=== PATIENT | male | born 1985 | race American Indian/Alaskan Native ===

== ENCOUNTER 2018-03-09 06:29 | Inpatient (IN) | payer BC ==
[2018-03-09] MEDS ORDERED: NACL 0.9% 500 ML 500 ML IV ONE (06:55)
[2018-03-09] MEDS ORDERED: ZOFRAN IV ONE (07:02)
[2018-03-09] MEDS ORDERED: ZOFRAN ONE (07:02)
[2018-03-09] MEDS ORDERED: NACL 0.9% 1000 ML 1,000 ML ONE ×2 (07:02→07:17)
--- NOTE | 2018-03-09 07:15 | XRay Report ---
FINAL REPORT EXAM: XR CHEST 1V AP HISTORY: possible Sepsis TECHNIQUE: A portable upright view the chest was obtained. FINDINGS: The heart size and vascularity appear normal. The lungs are clear. Pleural fluid is not seen. The bon es and soft tissues do not show any acute changes. IMPRESSION: No acute cardiopulmonary process.
[2018-03-09] MEDS ORDERED: NACL 0.9% 1000 ML IV ONE (07:16)
[2018-03-09] MEDS ORDERED: TORADOL IV ONE (07:28)
--- NOTE | 2018-03-09 07:30 | Emergency Department Report ---
HPI - General Chief Complaint: Nausea/Vomiting/Diarrhea Time Seen by Provider: 03/09/18 07:16 - HPI HPI: Room 22 The patient is a 33-year-old male presenting with a chief complaint of body aches and vomiting. The patient states his symptoms began 2 days ago when he developed chills nausea vomiting. Patient states she took TheraFlu and Raeann- [place] plus but it has not helped. The patient states the following day developed body aches and weakness. Patient denies diarrhea cough or rhinorrhea. Patient states he measured a temperature 99.7F at home. Patient is uncertain if he's had sick contacts Location: [See above] Duration: [See above] Quality: Aches Severity: Moderate Modifying factors: [see above] Context: [see above] Mode of transportation: [not driving] ED Past Medical Hx - Past Medical History Previous Medical History?: No - Surgical History Past Surgical History?: No - Family History Family history: no significant - Social History Smoking Status: Never Smoker Substance Use Type: Alcohol (occasional), Marijuana ED Review of Systems ROS: Stated complaint: FLU SXS Other details as noted in HPI Constitutional: chills, fever Eyes: denies: eye pain ENT: denies: throat pain Respiratory: denies: cough Cardiovascular: denies: chest pain Endocrine: no symptoms reported Gastrointestinal: nausea, vomiting. denies: diarrhea Genitourinary: denies: dysuria Musculoskeletal: myalgia Neurological: denies: headache Physical Exam - Physical Exam Vital Signs: Vital Signs 03/09/18 06:38 Temperature 97.7 F Pulse Rate 126 H Respiratory 18 Rate Blood Pressure 80/51 O2 Sat by Pulse 98 Oximetry Physical Exam: GENERAL: The patient is well-developed well-nourished male lying on stretcher appearing to be in moderate discomfort. [] HEENT: Normocephalic. Atraumatic. Extraocular motions are intact. Patient has moist mucous membranes. NECK: Supple. No meningitic signs are noted. No nuchal rigidity. Trachea midline CHEST/LUNGS: Clear to auscultation. There is no respiratory distress noted. HEART/CARDIOVASCULAR: Regular. There is tachycardia. There is no gallop rub or murmur. ABDOMEN: Abdomen is soft, nontender. Patient has normal bowel sounds. There is no abdominal distention. SKIN: There is no rash. There is no edema. There is no diaphoresis. NEURO: The patient is awake, alert, and oriented. The patient is cooperative. The patient has normal speech MUSCULOSKELETAL: There is no evidence of acute injury. ED Course Vital Signs 03/09/18 06:38 Temperature 97.7 F Pulse Rate 126 H Respiratory 18 Rate Blood Pressure 80/51 O2 Sat by Pulse 98 Oximetry - Central Line Placement Right Femoral Consent Obtained: verbal consent Time Out Performed: No Patient Placed on Monitor/Pulse Ox: Yes Prep: mask, gown, gloves Central Line Prep: Chlorhexidine scrub Local Anesthesia Used: Lidocaine 1% Amount of Anesthesia Used (mls): 3 Ultrasound Used for Placement: No Central Line Lumen Inserted: triple Bloods Obtained for Lab: No Central Line Position: good blood return Dressing Applied: Tegaderm Patient Tolerated Procedure: no complications Complications: none ED Medical Decision Making - Lab Data Result diagrams: 03/09/18 07:00 03/09/18 07:00 Laboratory Tests 03/09/18 03/09/18 03/09/18 07:00 07:00 07:00 WBC 8.5 RBC 4.68 Hgb 13.5 Hct 40.6 MCV 87 MCH 29 MCHC 33 RDW 15.5 H Plt Count 25 L Eos % (Auto) Cleater Add Manual Diff Complete Total Counted 100 Seg Neuts % (Manual) 90.0 H Band Neutrophils % 1.0 Lymphocytes % (Manual) 5.0 L Reactive Lymphs % (Man) 0 Monocytes % (Manual) 3.0 Eosinophils % (Manual) 1.0 Basophils % (Manual) 0 Metamyelocytes % 0 Myelocytes % 0 Promyelocytes % 0 Blast Cells % 0 Nucleated RBC % Not Reportable Seg Neutrophils # Man 7.7 Band Neutrophils # 0.1 Lymphocytes # (Manual) 0.4 L Abs React Lymphs (Man) 0.0 Monocytes # (Manual) 0.3 Eosinophils # (Manual) 0.1 Basophils # (Manual) 0.0 Metamyelocytes # 0.0 Myelocytes # 0.0 Promyelocytes # 0.0 Blast Cells # 0.0 WBC Morphology Not Reportable Hypersegmented Neuts Not Reportable Hyposegmented Neuts Not Reportable Hypogranular Neuts Not Reportable Smudge Cells Not Reportable Toxic Granulation Not Reportable Toxic Vacuolation 3+ Dohle Bodies Not Reportable Pelger-Huet Anomaly Not Reportable Kamar Rods Not Reportable Platelet Estimate Consistent w auto Clumped Platelets Not Reportable Plt Clumps, EDTA Not Reportable Large Platelets Not Reportable Giant Platelets Not Reportable Platelet Satelliting Not Reportable Plt Morphology Comment Not Reportable RBC Morphology Not Reportable Dimorphic RBCs Not Reportable Polychromasia Not Reportable Hypochromasia Not Reportable Poikilocytosis 2+ Anisocytosis 2+ Microcytosis Not Reportable Macrocytosis Not Reportable Spherocytes Not Reportable Pappenheimer Bodies Not Reportable Sickle Cells Not Reportable Target Cells Not Reportable Tear Drop Cells Not Reportable Ovalocytes Few Helmet Cells Not Reportable [place] Bodies Not Reportable [place] Rings Not Reportable [place] Cells Not Reportable Bite Cells Not Reportable Crenated Cell Not Reportable Elliptocytes Not Reportable Acanthocytes (Spur) 1+ Rouleaux Not Reportable Hemoglobin C Crystals Not Reportable Schistocytes Not Reportable Malaria parasites Not Reportable Jose Bodies Not Reportable Hem Pathologist Commnt No PT 22.9 H INR 1.98 H VBG pH Sodium 135 L Potassium 4.7 Chloride 90.8 L Carbon Dioxide 17 L Anion Gap 32 BUN 45 H Creatinine 5.8 H Estimated GFR 14 BUN/Creatinine Ratio 8 Glucose 72 L Lactic Acid Calcium 7.6 L Total Bilirubin 1.10 AST 32 ALT 28 Alkaline Phosphatase 154 H Total Protein 7.4 Albumin 3.6 L Albumin/Globulin Ratio 0.9 Influenza A (Rapid) Influenza B (Rapid) 03/09/18 03/09/18 03/09/18 07:00 07:00 Unknown WBC RBC Hgb Hct MCV MCH MCHC RDW Plt Count Eos % (Auto) Add Manual Diff Total Counted Seg Neuts % (Manual) Band Neutrophils % Lymphocytes % (Manual) Reactive Lymphs % (Man) Monocytes % (Manual) Eosinophils % (Manual) Basophils % (Manual) Metamyelocytes % Myelocytes % Promyelocytes % Blast Cells % Nucleated RBC % Seg Neutrophils # Man Band Neutrophils # Lymphocytes # (Manual) Abs React Lymphs (Man) Monocytes # (Manual) Eosinophils # (Manual) Basophils # (Manual) Metamyelocytes # Myelocytes # Promyelocytes # Blast Cells # WBC Morphology Hypersegmented Neuts Hyposegmented Neuts Hypogranular Neuts Smudge Cells Toxic Granulation Toxic Vacuolation Dohle Bodies Pelger-Huet Anomaly Kamar Rods Platelet Estimate Clumped Platelets Plt Clumps, EDTA Large Platelets Giant Platelets Platelet Satelliting Plt Morphology Comment RBC Morphology Dimorphic RBCs Polychromasia Hypochromasia Poikilocytosis Anisocytosis Microcytosis Macrocytosis Spherocytes Pappenheimer Bodies Sickle Cells Target Cells Tear Drop Cells Ovalocytes Helmet Cells Barnes-[place] Bodies Carnegie Rings [place] Cells Bite Cells Crenated Cell Elliptocytes Acanthocytes (Spur) Rouleaux Hemoglobin C Crystals Schistocytes Malaria parasites Joes Bodies Hem Pathologist Commnt PT INR VBG pH 7.297 L Sodium Potassium Chloride Carbon Dioxide Anion Gap BUN Creatinine Estimated GFR BUN/Creatinine Ratio Glucose Lactic Acid 6.80 H* Calcium Total Bilirubin AST ALT Alkaline Phosphatase Total Protein Albumin Albumin/Globulin Ratio Influenza A (Rapid) Negative Influenza B (Rapid) Negative - EKG Data -: EKG Interpreted by Me EKG shows normal: sinus rhythm Rate: tachycardia (124 bpm) - EKG Data Interpretation: other (early repolarization) - Radiology Data Radiology results: report reviewed (chest x-ray), image reviewed (chest x-ray) interpreted by me: Chest x-ray-no focal infiltrates, no pneumothorax Findings [facility] [address] [place] [address] XRay Report Signed Patient: TIMOTHY VILLALOBOS MR#: [id number] : 1985 Acct:[id number] Age/Sex: 33 / M ADM Date: 03/09/18 Loc: ED Attending Dr: Ordering Physician: AKASH GRAVES MD Date of Service: 03/09/18 Procedure(s): XR chest 1V ap Accession Number(s): [id number] cc: AKASH GRAVES MD Fluoro Time In Minutes: FINAL REPORT EXAM: XR CHEST 1V AP HISTORY: possible Sepsis TECHNIQUE: A portable upright view the chest was obtained. FINDINGS: The heart size and vascularity appear normal. The lungs are clear. Pleural fluid is not seen. The bones and soft tissues do not show any acute changes. IMPRESSION: No acute c ardiopulmonary process. Transcribed By: RB Dictated By: TANMAY CRENSHAW MD Electronically Authenticated By: TANMAY CRENSHAW MD Signed Date/Time: 03/09/18714 DD/ 7 TD/TT: 03/09/18717 - Differential Diagnosis sepsis, influenza, dehydration, gastritis, pneumonia, UTI Critical care attestation.: If time is entered above; I have spent that time in minutes in the direct care of this critically ill patient, excluding procedure time. ED Disposition Clinical Impression: Sepsis, Acute renal failure Disposition: OP ADMIT IP TO THIS HOSP Is pt being admited?: Yes Does the pt Need Aspirin: No Condition: Serious Referrals: PRIMARY CARE,MD [Primary Care Provider] - 3-5 Days Time of Disposition: 09:17 (Hospitalist notified (Dr Caldwell))
[2018-03-09 07:42] LABS: Hematocrit 40.6 % (35.5-45.6); Hemoglobin 13.5 gm/dl (11.8-15.2); Mean Corpuscular HGB Conc 33 % (32-34); Mean Corpuscular Volume 87 fl (84-94); Red Blood Count 4.68 M/mm3 (3.65-5.03); Red Cell Distribution Width 15.5 % (13.2-15.2)
[2018-03-09 07:54] LABS: INR 1.98 (0.87-1.13)
[2018-03-09 07:57] LABS: Albumin 3.6 g/dL (3.9-5); Calcium 7.6 mg/dL (8.4-10.2)
[2018-03-09] MEDS ORDERED: LEVOPHED DRIP 4 MG/NS 250 ML 4 MG/250 ML BAG IV ONE ×4 (08:23→19:11)
[2018-03-09] MEDS: LEVOPHED DRIP 4 MG/NS 250 ML 4 MG/250 ML BAG IV ONE ×3 (08:25→19:34)
[2018-03-09 08:51] LABS: Band Neutrophils # (Manual) 0.1 K/mm3; Basophils % (Manual) 0 % (0.0-1.8); Total Cells Counted 100
[2018-03-09 08:53] LABS: Anisocytosis 2+; Ovalocytes Few; Poikilocytosis 2+
[2018-03-09 08:56] LABS: Toxic Vacuolation 3+
[2018-03-09 08:57] LABS: Platelet Count 25 K/mm3 (140-440); Platelet Estimate Consistent w Auto
[2018-03-09] MEDS ORDERED: ZOSYN/NS 2.25 GM/50ML 2.25 GM/50 ML BAG IV ONE (09:00)
[2018-03-09] MEDS ORDERED: NACL 0.9% 1000 ML 1,000 ML IV SCH (10:00)
--- NOTE | 2018-03-09 10:13 | Consultation ---
History of Present Illness - Reason for Consult Consult date: 03/09/18 acute renal failure - History of Present Illness the patient is a 33 year old male with no PMH, for the last few days he started to feel weak with generlaized body aches and nausea with vomting which did not improve with Raeann-[place] and he came to the ED. in the ED he was found hypotensive and was given 2 L IVF bolus and started on levophed, his lab results were significant for renal failure, hypocalcemia, AG metabolic acidosis and renal consult was requested Past History Past Medical History: No medical history Medications and Allergies Allergies Allergy/AdvReac Type Severity Reaction Status Date / Time clindamycin Allergy Swelling Verified 03/09/18 06:43 Active Meds: Active Medications Norepinephrine (Levophed Drip 4 Mg/Ns 250 Ml) 4 mg in 250 mls @ 7.5 mls/hr IV TITR ONE; Protocol Stop: 03/10/18 17:39 Last Titration: 03/09/18 09:40 Dose: 10 mcg/min, 37.5 mls/hr Documented by: Sodium Chloride (Nacl 0.9% 1000 Ml) 1,000 mls @ 150 mls/hr IV DIRECT LIU Sodium Bicarbonate 75 meq/ (Sodium Chloride) 1,075 mls @ 125 mls/hr IV DIRECT LIU Calcium Gluconate 2,000 mg/ (Sodium Chloride) 120 mls @ 660 mls/hr IV ONCE ONE Stop: 03/09/18 10:14 Review of Systems All systems: negative (weakness, nausea and vomiting) Exam - Vital Signs Vital signs: Vital Signs Temp Pulse Resp BP Pulse Ox 97.7 F 126 H 18 80/51 98 03/09/18 06:38 03/09/18 06:38 03/09/18 06:38 03/09/18 06:38 03/09/18 06:38 - General Appearance General appearance: well-developed, well-nourished, appears stated age, moderate distress EENT: ATNC, PERRL, mucous membranes moist Neck: Present: neck supple Respiratory: Clear to Ascultation Heart: regular, S1S2 Gastrointestinal: Present: normoactive bowel sounds. Absent: tenderness, distended Integumentary: no rash, warm and dry Neurologic: no focal deficit, no asterixis, alert and oriented x3 Musculoskeletal: Present: other (no edema in BLE) Psychiatric: mood/affect appropriate, cooperative Results - Lab Results 03/09/18 07:00 03/09/18 07:00 Most recent lab results Calcium 7.6 mg/dL (8.4-10.2) L 03/09/18 07:00 Assessment and Plan acute renal failure, prerenal azotemia vs. ischemic ATN from hypotension lactic acidosis nausea and vomiting, likely gastroenteritis hypocalcemia - currently on levo and was given 2 L bolus in the ED, will start 1/2 NS with sodium bicarb 75 meq @ 125 cc/h - urine lytes, protein and UA ordered, if active sediment will check secondary GN and vasculitis work up - CK ordered for generalized body aches to r/o rhabdo - calcium gluconate 2 gram IV ordered - renal US ordered - no indication for CORN SHELLER, will monitor closely - renally odse meds - strict I&O - daily weight thank you for allowing to participate in Mr Liu's care. Joseph Stratton MD cell [phone]
--- NOTE | 2018-03-09 10:35 | History and Physical Report ---
History of Present Illness Date of examination: 03/09/18 Date of admission: 03/09/18 09:19 Chief complaint: nausea, vomiting,gen body pains,chills History of present illness: Patient is 33 yo with HIV infection. He presented with nausea, vomiting, general weakness and chills for 2 days. he states illness started 2 days with him feeling chilly but denies fever. Later had nausea vomited almost 10 times daily for past few days.He took Thera flu and multiple doses of Raeann-seltzer. He was getting weaker, no Urine output therefore came to ED for evaluation. In ED, labs show acute kidney injury with metabolic acidosis. He was hypotensive. He was given 2000ml bolus, was still hypotensive therefore started on Levophed infusion. Will admit to ICU. Past History Past Medical History: HIV/AIDS Past Surgical History: Other (hemorrhoidectomy) Social history: single, full code, other (Marijuana, alcohol occasionally) Family history: other (father has CKD) Medications and Allergies Allergies Allergy/AdvReac Type Severity Reaction Status Date / Time clindamycin Allergy Swelling Verified 03/09/18 06:43 Home Medications Medication Instructions Recorded Confirmed Last Taken Type No Known Home Medications [No 03/09/18 03/09/18 Unknown History Reported Home Medications] Active Meds: Active Medications Norepinephrine (Levophed Drip 4 Mg/Ns 250 Ml) 4 mg in 250 mls @ 7.5 mls/hr IV TITR ONE; Protocol Stop: 03/10/18 17:39 Last Titration: 03/09/18 09:40 Dose: 10 mcg/min, 37.5 mls/hr Documented by: Sodium Chloride (Nacl 0.9% 1000 Ml) 1,000 mls @ 150 mls/hr IV DIRECT LIU Sodium Bicarbonate 75 meq/ (Sodium Chloride) 1,075 mls @ 125 mls/hr IV DIRECT LIU Calcium Gluconate 2,000 mg/ (Sodium Chloride) 120 mls @ 240 mls/hr IV ONCE ONE Stop: 03/09/18 11:29 Review of Systems All systems: negative (No fever, No haeadache, no cough, no headache. All other system reviewed and are negative) Exam - Physical Exam Narrative exam: GEN: Not in acute distress, lying in bed HEENT: Normocephalic, atraumatic, Neck: supple, No JVD Lungs: Clear to auscultation, no rhonchi,no wheeze Heart:S1 and S2 regular, no murmurs, rubs or gallop, Abd:soft, non tender, non distended, normal bowel sounds Ext: No edema, no clubbing or cyanosis Neuro: AAO x 3, No focal signs - Constitutional Vitals: Temp Pulse Resp BP Pulse Ox 97.7 F 114 H 41 H 84/57 95 03/09/18 07:39 03/09/18 09:45 03/09/18 09:45 03/09/18 09:45 03/09/18 09:45 Results - Labs CBC & Chem 7: 03/09/18 07:00 03/09/18 07:00 Labs: Abnormal lab results 03/09/18 03/09/18 03/09/18 Range/Units 07:00 07:00 07:00 RDW 15.5 H (13.2-15.2) % Plt Count 25 L (140-440) K/mm3 Seg Neuts % (Manual) 90.0 H (40.0-70.0) % Lymphocytes % (Manual) 5.0 L (13.4-35.0) % Lymphocytes # (Manual) 0.4 L (1.2-5.4) K/mm3 PT 22.9 H (12.2-14.9) Sec. INR 1.98 H (0.87-1.13) VBG pH (7.320-7.420) Sodium 135 L (137-145) mmol/L Chloride 90.8 L (98-107) mmol/L Carbon Dioxide 17 L (22-30) mmol/L BUN 45 H (9-20) mg/dL Creatinine 5.8 H (0.8-1.5) mg/dL Glucose 72 L (75-100) mg/dL Lactic Acid (0.7-2.0) mmol/L Calcium 7.6 L (8.4-10.2) mg/dL Alkaline Phosphatase 154 H (35-129) units/L Albumin 3.6 L (3.9-5) g/dL 03/09/18 03/09/18 03/09/18 Range/Units 07:00 07:00 09:22 RDW (13.2-15.2) % Plt Count (140-440) K/mm3 Seg Neuts % (Manual) (40.0-70.0) % Lymphocytes % (Manual) (13.4-35.0) % Lymphocytes # (Manual) (1.2-5.4) K/mm3 PT (12.2-14.9) Sec. INR (0.87-1.13) VBG pH 7.297 L (7.320-7.420) Sodium (137-145) mmol/L Chloride (98-107) mmol/L Carbon Dioxide (22-30) mmol/L BUN (9-20) mg/dL Creatinine (0.8-1.5) mg/dL Glucose (75-100) mg/dL Lactic Acid 6.80 H* 5.90 H* (0.7-2.0) mmol/L Calcium (8.4-10.2) mg/dL Alkaline Phosphatase (35-129) units/L Albumin (3.9-5) g/dL Assessment and Plan Hypotension Admit to ICU Started on Levophed after bolus iv fluid iv fluids SCOTT Nephrology consulted and has evaluated Discusssed with nephrology Possible sepsis vs SIRS Blood cultures drawn Started iv Abx consult ID HIV infection. Diagnosed 6 yrs ago was on HAART but been off meds for 2 mths Hyponatremia Coagulopathy INR 1.98 Repeat May Lactic acidosis Metabolic acidosis Full code status
[2018-03-09] MEDS: SODIUM BICARBONATE 75 MEQ in NACL 0.45% 1000 ML 1,000 ML IV SCH ×2 (10:40→19:21)
[2018-03-09] MEDS ORDERED: SODIUM CHLORIDE FLUSH SYRINGE 10 ML IV PRN (10:41)
[2018-03-09] MEDS ORDERED: CALCIUM GLUCONATE 2,000 MG in NACL 0.9% 100 ML IV ONE (11:00)
[2018-03-09] MEDS ORDERED: VANCOMYCIN PHARMACY TO DOSE IV SCH (11:00)
[2018-03-09] MEDS ORDERED: VANCOMYCIN 1,750 MG in NACL 0.9% 500 ML 500 ML IV STA (11:02)
[2018-03-09] MEDS: PROTONIX IV SCH (12:39)
[2018-03-09] MEDS ORDERED: MAGNESIUM SULFATE 3 GM in NACL 0.9% 100 ML IV ONE (14:30)
--- NOTE | 2018-03-09 14:53 | Consultation ---
History of Present Illness - Reason for Consult Consult date: 03/09/18 Hypotension, unknown etiology Requesting physician: ELIOT SINGH - History of Present Illness 33 y/o male with no past medical history found to be hypotensive, thrombocytopenic, acute renal failure of unknown etiology. Patient current on Levophed drip but off floor for US of kidneys. Past History Past Medical History: HIV/AIDS Past Surgical History: Other (hemorrhoidectomy) Social history: single, other (Marijuana, alcohol occasionally) Family history: other (father has CKD) Medications and Allergies Allergies Allergy/AdvReac Type Severity Reaction Status Date / Time clindamycin Allergy Swelling Verified 03/09/18 06:43 Home Medications Medication Instructions Recorded Confirmed Last Taken Type No Known Home Medications [No 03/09/18 03/09/18 Unknown History Reported Home Medications] Active Meds: Active Medications Norepinephrine (Levophed Drip 4 Mg/Ns 250 Ml) 4 mg in 250 mls @ 7.5 mls/hr IV TITR ONE; Protocol Stop: 03/10/18 17:39 Last Titration: 03/09/18 14:34 Dose: Infused Documented by: Sodium Chloride (Nacl 0.9% 1000 Ml) 1,000 mls @ 150 mls/hr IV DIRECT LIU Sodium Bicarbonate 75 meq/ (Sodium Chloride) 1,075 mls @ 125 mls/hr IV DIRECT LIU Last Admin: 03/09/18 10:40 Dose: 125 mls/hr Documented by: Piperacillin Sod/Tazobactam Sod (Zosyn/Ns 2.25 Gm/50ml) 2.25 gm in 50 mls @ 100 mls/hr IV Q8H LIU; Protocol Vancomycin HCl 1,750 mg/ (Sodium Chloride) 535 mls @ 267.5 mls/hr IV Q48H LIU Magnesium Sulfate 3 gm/ Sodium (Chloride) 106 mls @ 35.333 mls/hr IV ONCE ONE Stop: 03/09/18 17:29 Morphine Sulfate (Morphine) 2 mg IV Q4H PRN PRN Reason: Pain, Moderate (4-6) Pantoprazole Sodium (Protonix) 40 mg IV QDAY LIU Last Admin: 03/09/18 12:39 Dose: 40 mg Documented by: Sodium Chloride (Sodium Chloride Flush Syringe 10 Ml) 10 ml IV BID LIU Sodium Chloride (Sodium Chloride Flush Syringe 10 Ml) 10 ml IV PRN PRN PRN Reason: LINE FLUSH Exam - Constitutional Vitals: Temp Pulse Resp BP Pulse Ox 97.7 F 112 H 24 78/45 93 03/09/18 07:39 03/09/18 13:50 03/09/18 13:50 03/09/18 13:50 03/09/18 13:50 Results - Labs CBC & Chem 7: 03/09/18 07:00 03/09/18 07:00 Labs: Abnormal lab results 03/09/18 03/09/18 03/09/18 Range/Units 07:00 07:00 07:00 RDW 15.5 H (13.2-15.2) % Plt Count 25 L (140-440) K/mm3 Seg Neuts % (Manual) 90.0 H (40.0-70.0) % Lymphocytes % (Manual) 5.0 L (13.4-35.0) % Lymphocytes # (Manual) 0.4 L (1.2-5.4) K/mm3 PT 22.9 H (12.2-14.9) Sec. INR 1.98 H (0.87-1.13) VBG pH (7.320-7.420) Sodium 135 L (137-145) mmol/L Chloride 90.8 L (98-107) mmol/L Carbon Dioxide 17 L (22-30) mmol/L BUN 45 H (9-20) mg/dL Creatinine 5.8 H (0.8-1.5) mg/dL Glucose 72 L (75-100) mg/dL Lactic Acid (0.7-2.0) mmol/L Calcium 7.6 L (8.4-10.2) mg/dL Phosphorus (2.5-4.5) mg/dL Magnesium (1.7-2.3) mg/dL Alkaline Phosphatase 154 H (35-129) units/L Total Creatine Kinase (55-170) units/L Albumin 3.6 L (3.9-5) g/dL 03/09/18 03/09/18 03/09/18 Range/Units 07:00 07:00 07:00 RDW (13.2-15.2) % Plt Count (140-440) K/mm3 Seg Neuts % (Manual) (40.0-70.0) % Lymphocytes % (Manual) (13.4-35.0) % Lymphocytes # (Manual) (1.2-5.4) K/mm3 PT (12.2-14.9) Sec. INR (0.87-1.13) VBG pH 7.297 L (7.320-7.420) Sodium (137-145) mmol/L Chloride (98-107) mmol/L Carbon Dioxide (22-30) mmol/L BUN (9-20) mg/dL Creatinine (0.8-1.5) mg/dL Glucose (75-100) mg/dL Lactic Acid 6.80 H* (0.7-2.0) mmol/L Calcium (8.4-10.2) mg/dL Phosphorus 5.40 H (2.5-4.5) mg/dL Magnesium 1.20 L (1.7-2.3) mg/dL Alkaline Phosphatase (35-129) units/L Total Creatine Kinase 228 H (55-170) units/L Albumin (3.9-5) g/dL 03/09/18 03/09/18 Range/Units 09:22 12:36 RDW (13.2-15.2) % Plt Count (140-440) K/mm3 Seg Neuts % (Manual) (40.0-70.0) % Lymphocytes % (Manual) (13.4-35.0) % Lymphocytes # (Manual) (1.2-5.4) K/mm3 PT (12.2-14.9) Sec. INR (0.87-1.13) VBG pH (7.320-7.420) Sodium (137-145) mmol/L Chloride (98-107) mmol/L Carbon Dioxide (22-30) mmol/L BUN (9-20) mg/dL Creatinine (0.8-1.5) mg/dL Glucose (75-100) mg/dL Lactic Acid 5.90 H* 8.30 H* (0.7-2.0) mmol/L Calcium (8.4-10.2) mg/dL Phosphorus (2.5-4.5) mg/dL Magnesium (1.7-2.3) mg/dL Alkaline Phosphatase (35-129) units/L Total Creatine Kinase (55-170) units/L Albumin (3.9-5) g/dL Assessment and Plan 33 y/o male with thrombocytopenia, renal failure, and hypotension. Will assess once back from ultrasound, but in the mean time suggest the following 1. Peripheral smear given thrombocytopenia 2. Consider repeat CBC and if still low, suggest heme consult 3. Check HIV 4. Would suggest more IVF boluses 5. Send Cortisol level CCT 31 minutes
--- NOTE | 2018-03-09 15:04 | Ultrasound Report ---
ULTRASOUND RENAL BILATERAL HISTORY: Renal failure. TECHNIQUE: transabdominal ultrasound with color Doppler interrogation. COMPARISON: none. FINDINGS: The right kidney measures 13.5cm. Right renal cortex: 2.1cm. The left kidney measures 12.2cm. Left renal cortex: 2.2cm. The kidneys are normal size, contour and position. There is increased renal cortical echotexture bilaterally consistent with nonspecific renal parenchymal disease. Corticomedullary differentiation is preserved. No evidence for cystic disease, mass, nephrolithiasis, hydronephrosis or perinephric fluid. The views of the bladder and the region of the ureters appear normal. IMPRESSION: Renal parenchymal disease.
[2018-03-09] MEDS ORDERED: PROTONIX IV ONE (15:18)
[2018-03-09 15:50] LABS: Creatinine,Urine 217.1 mg/dL (0.1-20.0)
[2018-03-09 15:55] LABS: Creatinine,Urine 210.7 mg/dL (0.1-20.0)
[2018-03-09] MEDS ORDERED: D50W (25GM) Syringe IV ONE ×2 (16:02→16:05)
[2018-03-09] MEDS ORDERED: D50W (25GM) Vial IV PRN (16:05)
[2018-03-09] MEDS ORDERED: D50W (25GM) Syringe IV PRN (16:15)
[2018-03-09 16:16] LABS: Protein/Creatinine Ratio,Urine 3.89
[2018-03-09 16:26] LABS: Bilirubin,Urine NEG (Negative); Blood,Urine LG (Negative); Color,Urine Amber (Yellow); Urobilinogen,Urine < 2.0 mg/dL (<2.0)
[2018-03-09 16:27] LABS: RBC,Urine > 182.0 /HPF (0.0-6.0)
[2018-03-09] MEDS ORDERED: ZOSYN/NS 3.375GM/50ML 3.375 GM/50 ML BAG IV SCH (17:00)
[2018-03-09] MEDS ORDERED: ZOSYN/NS 2.25 GM/50ML 2.25 GM/50 ML BAG IV SCH (18:00)
--- NOTE | 2018-03-09 19:21 | Consultation ---
History of Present Illness - Reason for Consult Consult date: 03/09/18 ?sepsis, shock, on pressors Requesting physician: ELIOT SINGH - History of Present Illness The patient is a 33-year-old male with no significant past medical history presented to the emergency room today with complaints of body aches and vomiting. The patient states he was at his baseline state of health and started feeling poorly on Wednesday when at work. He checked his temperature and was 99.7F. He also had some chills and nausea, vomiting. He took TheraFlu as well as Raeann- [place] without much improvement. Today, he continued to feel worse and hence came to the emergency room. Here, he was noted to be hypotensive and in acute renal failure with significant elevation of creatinine. He was also noted to be acidotic. He was given 2 L of IV fluids and started on levo fed due to hypotens ion. Nephrology was consulted. Infectious diseases was consulted due to concern for possible sepsis causing hypotension. The patient reports just having pain all over. Denies any significant cough. He is feeling short of breath. Denies any rash. Denies burning urination. Has been afebrile here. No significant diarrhea. Patient reports a strong family history of ESRD and CKD in several family mem bers. 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 He drinks alcohol socially, occasionally smokes marijuana. Denies any IV drug use. Review of Systems: General: no fevers or rigors HEENT: no new visual disturbance Respiratory: No cough, sputum, hemoptysis. SOB + Cardiovascular: No chest pain, syncope Gastrointestinal: vomiting+, no significant diarrhea Genitourinary: No dysuria or hematuria Musculoskeletal: Diffuse bodyaches. Neurologic: No headaches, seizures Hematologic: No easy bruising or bleeding Endocrine: No night sweats or acute weight loss Skin: negative for rash, jaundice Psychiatric: No suicidal or homicidal ideation Past History Past Medical History: HIV/AIDS Past Surgical History: Other (hemorrhoidectomy) Social history: single, other (Marijuana, alcohol occasionally) Family history: other (father has CKD) Medications and Allergies Allergies Allergy/AdvReac Type Severity Reaction Status Date / Time clindamycin Allergy Swelling Verified 03/09/18 06:43 Home Medications Medication Instructions Recorded Confirmed Last Taken Type No Known Home Medications [No 03/09/18 03/09/18 Unknown History Reported Home Medications] Active Meds: Active Medications Dextrose (D50w (25gm) Syringe) 50 ml IV PRN PRN PRN Reason: HYPOGLYCEMIA Norepinephrine (Levophed Drip 4 Mg/Ns 250 Ml) 4 mg in 250 mls @ 7.5 mls/hr IV TITR ONE; Protocol Stop: 03/10/18 17:39 Last Admin: 03/09/18 17:20 Dose: 30 mcg/min, 112.5 mls/hr Documented by: Sodium Bicarbonate 75 meq/ (Sodium Chloride) 1,075 mls @ 125 mls/hr IV DIRECT [facility] Last Admin: 03/09/18 10:40 Dose: 125 mls/hr Documented by: Morphine Sulfate (Morphine) 2 mg IV Q4H PRN PRN Reason: Pain, Moderate (4-6) Pantoprazole Sodium (Protonix) 40 mg IV QDAY [facility] Last Admin: 03/09/18 12:39 Dose: 40 mg Documented by: Sodium Chloride (Sodium Chloride Flush Syringe 10 Ml) 10 ml IV BID [facility] Sodium Chloride (Sodium Chloride Flush Syringe 10 Ml) 10 ml IV PRN PRN PRN Reason: LINE FLUSH Physical Examination - Physical Exam Narrative exam: Physical Exam: Constitutional: Alert, cooperative. No acute distress Head, Ears, Nose: Normocephalic, atraumatic. External ears, nose normal Eyes: Conjunctivae/corneas clear. No icterus. No ptosis. Neck: Supple, no meningeal signs Oral: no thrush or ulcers Cardiovascular: S1, S2 normal. Respiratory: Good air entry, clear to auscultation bilaterally GI: Mild diffuse tenderness; bowel sounds normal. No peritoneal signs Musculoskeletal: No pedal edema, no cyanosis. Skin: No rash or abscess Hem/Lymphatic: No palpable cervical or supraclavicular nodes. No lymphangitis Psych: Mood ok. Affect normal Neurological: Awake, alert, oriented. No gross abnormality - Constitutional Vitals: Vital Signs Temp Pulse Resp BP Pulse Ox 97.7 F 121 H 27 H 104/74 95 03/09/18 07:39 03/09/18 18:22 03/09/18 18:22 03/09/18 18:00 03/09/18 18:22 Temperature -Last 24 Hours Temperature 97.7 F Temperature 97.7 F Results - Labs CBC & Chem 7: 03/09/18 07:00 03/09/18 07:00 Labs: Abnormal lab results 03/09/18 03/09/18 03/09/18 Range/Units 07:00 07:00 07:00 RDW 15.5 H (13.2-15.2) % Plt Count 25 L (140-440) K/mm3 Seg Neuts % (Manual) 90.0 H (40.0-70.0) % Lymphocytes % (Manual) 5.0 L (13.4-35.0) % Lymphocytes # (Manual) 0.4 L (1.2-5.4) K/mm3 PT 22.9 H (12.2-14.9) Sec. INR 1.98 H (0.87-1.13) VBG pH (7.320-7.420) Sodium 135 L (137-145) mmol/L Chloride 90.8 L (98-107) mmol/L Carbon Dioxide 17 L (22-30) mmol/L BUN 45 H (9-20) mg/dL Creatinine 5.8 H (0.8-1.5) mg/dL Glucose 72 L (75-100) mg/dL POC Glucose (70-105) Lactic Acid (0.7-2.0) mmol/L Calcium 7.6 L (8.4-10.2) mg/dL Phosphorus (2.5-4.5) mg/dL Magnesium (1.7-2.3) mg/dL Alkaline Phosphatase 154 H (35-129) units/L Total Creatine Kinase (55-170) units/L Albumin 3.6 L (3.9-5) g/dL Urine WBC (Auto) (0.0-6.0) /HPF Urine Creatinine (0.1-20.0) mg/dL Urine Total Protein (5-11.8) mg/dL 03/09/18 03/09/18 03/09/18 Range/Units 07:00 07:00 07:00 RDW (13.2-15.2) % Plt Count (140-440) K/mm3 Seg Neuts % (Manual) (40.0-70.0) % Lymphocytes % (Manual) (13.4-35.0) % Lymphocytes # (Manual) (1.2-5.4) K/mm3 PT (12.2-14.9) Sec. INR (0.87-1.13) VBG pH 7.297 L (7.320-7.420) Sodium (137-145) mmol/L Chloride (98-107) mmol/L Carbon Dioxide (22-30) mmol/L BUN (9-20) mg/dL Creatinine (0.8-1.5) mg/dL Glucose (75-100) mg/dL POC Glucose (70-105) Lactic Acid 6.80 H* (0.7-2.0) mmol/L Calcium (8.4-10.2) mg/dL Phosphorus 5.40 H (2.5-4.5) mg/dL Magnesium 1.20 L (1.7-2.3) mg/dL Alkaline Phosphatase (35-129) units/L Total Creatine Kinase 228 H (55-170) units/L Albumin (3.9-5) g/dL Urine WBC (Auto) (0.0-6.0) /HPF Urine Creatinine (0.1-20.0) mg/dL Urine Total Protein (5-11.8) mg/dL 03/09/18 03/09/18 03/09/18 Range/Units 09:22 12:36 14:39 RDW (13.2-15.2) % Plt Count (140-440) K/mm3 Seg Neuts % (Manual) (40.0-70.0) % Lymphocytes % (Manual) (13.4-35.0) % Lymphocytes # (Manual) (1.2-5.4) K/mm3 PT (12.2-14.9) Sec. INR (0.87-1.13) VBG pH (7.320-7.420) Sodium (137-145) mmol/L Chloride (98-107) mmol/L Carbon Dioxide (22-30) mmol/L BUN (9-20) mg/dL Creatinine (0.8-1.5) mg/dL Glucose (75-100) mg/dL POC Glucose (70-105) Lactic Acid 5.90 H* 8.30 H* (0.7-2.0) mmol/L Calcium (8.4-10.2) mg/dL Phosphorus (2.5-4.5) mg/dL Magnesium (1.7-2.3) mg/dL Alkaline Phosphatase (35-129) units/L Total Creatine Kinase (55-170) units/L Albumin (3.9-5) g/dL Urine WBC (Auto) 86.0 H (0.0-6.0) /HPF Urine Creatinine (0.1-20.0) mg/dL Urine Total Protein (5-11.8) mg/dL 03/09/18 03/09/18 03/09/18 Range/Units 14:39 14:39 15:12 RDW (13.2-15.2) % Plt Count (140-440) K/mm3 Seg Neuts % (Manual) (40.0-70.0) % Lymphocytes % (Manual) (13.4-35.0) % Lymphocytes # (Manual) (1.2-5.4) K/mm3 PT (12.2-14.9) Sec. INR (0.87-1.13) VBG pH (7.320-7.420) Sodium (137-145) mmol/L Chloride (98-107) mmol/L Carbon Dioxide (22-30) mmol/L BUN (9-20) mg/dL Creatinine (0.8-1.5) mg/dL Glucose (75-100) mg/dL POC Glucose (70-105) Lactic Acid 5.90 H* (0.7-2.0) mmol/L Calcium (8.4-10.2) mg/dL Phosphorus (2.5-4.5) mg/dL Magnesium (1.7-2.3) mg/dL Alkaline Phosphatase (35-129) units/L Total Creatine Kinase (55-170) units/L Albumin (3.9-5) g/dL Urine WBC (Auto) (0.0-6.0) /HPF Urine Creatinine 217.1 H 210.7 H (0.1-20.0) mg/dL Urine Total Protein 820 H (5-11.8) mg/dL 03/09/18 03/09/18 Range/Units 15:53 18:20 RDW (13.2-15.2) % Plt Count (140-440) K/mm3 Seg Neuts % (Manual) (40.0-70.0) % Lymphocytes % (Manual) (13.4-35.0) % Lymphocytes # (Manual) (1.2-5.4) K/mm3 PT (12.2-14.9) Sec. INR (0.87-1.13) VBG pH (7.320-7.420) Sodium (137-145) mmol/L Chloride (98-107) mmol/L Carbon Dioxide (22-30) mmol/L BUN (9-20) mg/dL Creatinine (0.8-1.5) mg/dL Glucose (75-100) mg/dL POC Glucose 56 L (70-105) Lactic Acid 5.10 H* (0.7-2.0) mmol/L Calcium (8.4-10.2) mg/dL Phosphorus (2.5-4.5) mg/dL Magnesium (1.7-2.3) mg/dL Alkaline Phosphatase (35-129) units/L Total Creatine Kinase (55-170) units/L Albumin (3.9-5) g/dL Urine WBC (Auto) (0.0-6.0) /HPF Urine Creatinine (0.1-20.0) mg/dL Urine Total Protein (5-11.8) mg/dL - Imaging and Cardiology Chest x-ray: report reviewed, image reviewed (no pneumonia) Assessment and Plan Cultures: 03/09/2018 that culture: In progress 03/09/2018 influenza rapid: Negative A/P: 33/M with no medical history, admitted with: 1) Shock requiring pressors: Etiology unclear. No evidence of fever or leukocytosis to suggest infectious process. Patient with evidence of acute renal failure, severe metabolic acidosis, lactic acidosis. Influenza Rapid test negative. History with vague symptoms. CXR not suggestive of pneumonia. Of note, UA showed 86 WBCs and significant hematuria. ? Some kind of glomerulonephritis. For now, would like to avoid Zosyn and vancomycin combination due to acute renal failure. We will start the patient on empiric ceftriaxone. We will follow blood cultures. We'll also order HIV, acute hepatitis panel, C3, C4, FELICIA and ANCA panel. Recs: Discontinue Zosyn and vancomycin Start empiric IV ceftriaxone 2 g every 24 hours Follow-up blood cultures No evidence of obvious infection Will order HIV, acute hepatitis panel, C3, C4, FELICIA and ANCA panel Will also check influenza PCR due to diffuse bodyaches D/W Dr. Singh. MD [facility] C: [phone] O: [phone] F: [phone]
[2018-03-09 21:32] LABS: Hepatitis B Surface Antigen Non-Reactive (Negative); Hepatitis C Virus Antibody Non-Reactive (NonReactive)
[2018-03-09] MEDS ORDERED: ROCEPHIN/NS 2 GM/100 ML 2 GM/100 ML BAG IV SCH (22:00)
[2018-03-09] MEDS: LEVOPHED DRIP 4 MG/NS 250 ML 4 MG/250 ML BAG IV SCH (23:00)
[2018-03-10] MEDS: SODIUM CHLORIDE FLUSH SYRINGE 10 ML IV SCH ×3 (00:45→23:34)
[2018-03-10] MEDS: MORPHINE IV PRN ×2 (00:54→21:11)
[2018-03-10] MEDS: LEVOPHED DRIP 4 MG/NS 250 ML 4 MG/250 ML BAG IV SCH ×7 (01:17→21:31)
[2018-03-10] MEDS: SODIUM BICARBONATE 75 MEQ in NACL 0.45% 1000 ML 1,000 ML IV SCH (04:31)
[2018-03-10 04:57] LABS: Hematocrit 35.5 % (35.5-45.6); Hemoglobin 11.7 gm/dl (11.8-15.2); Mean Corpuscular HGB Conc 33 % (32-34); Mean Corpuscular Volume 87 fl (84-94); Red Blood Count 4.09 M/mm3 (3.65-5.03)
[2018-03-10 05:31] LABS: Calcium 6.2 mg/dL (8.4-10.2)
[2018-03-10 05:35] LABS: Platelet Count 8 K/mm3 (140-440)
[2018-03-10 06:34] LABS: Amorphous Crystals,Urine 3+; Bacteria,Urine 2+ /HPF (Negative); Bilirubin,Urine NEG (Negative); Blood,Urine LG (Negative); Color,Urine Red (Yellow); Granular Casts,Urine 29 /LPF; Urobilinogen,Urine < 2.0 mg/dL (<2.0)
[2018-03-10 06:35] LABS: RBC,Urine > 182.0 /HPF (0.0-6.0)
[2018-03-10] MEDS ORDERED: NACL 0.9% 500 ML 500 ML IV ONE (08:00)
[2018-03-10 08:08] LABS: Basophils % (Manual) 0 % (0.0-1.8); Dohle Bodies 2+; Eosinophils % (Manual) 0 % (0.0-4.3); Total Cells Counted 100; Toxic Granulation 1+
[2018-03-10 08:09] LABS: Anisocytosis 1+; Ovalocytes Few; Poikilocytosis 1+; Target Cells Rare
[2018-03-10 08:10] LABS: Platelet Estimate Consistent w Auto
--- NOTE | 2018-03-10 08:16 | Progress Note ---
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 Diagnosed 6 yrs ago was on HAART but been off meds for 2 mths Thrombocytopenia Platelets down to 8. Transfuse 2 Units Hyponatremia Coagulopathy INR 1.98 Repeat today Lactic acidosis Metabolic acidosis, improved Full code status History Interval history: Shortness of breath, started on BIPAP Hospitalist Physical - Physical exam Narrative exam: GEN: In mild resp distress, on BIPAP HEENT: Normocephalic, atraumatic, Neck: supple, No JVD Lungs: Bilateral crackles, no rhonchi,no wheeze Heart:S1 and S2 regular, no murmurs, rubs or gallop, Abd:soft, non tender, non distended, normal bowel sounds Ext: No edema, no clubbing or cyanosis Neuro: AAO x 3, No focal signs - Constitutional Vitals: Temp Pulse Resp BP Pulse Ox 98.3 F 172 H 45 H 91/53 93 03/10/18 04:00 03/10/18 07:45 03/10/18 07:45 03/10/18 07:45 03/10/18 07:45 Results - Labs CBC & Chem 7: 03/10/18 04:40 03/10/18 04:40 Labs: Laboratory Last Values WBC 11.8 K/mm3 (4.5-11.0) H 03/10/18 04:40 RBC 4.09 M/mm3 (3.65-5.03) 03/10/18 04:40 Hgb 11.7 gm/dl (11.8-15.2) L 03/10/18 04:40 Hct 35.5 % (35.5-45.6) 03/10/18 04:40 MCV 87 fl (84-94) 03/10/18 04:40 MCH 29 pg (28-32) 03/10/18 04:40 MCHC 33 % (32-34) 03/10/18 04:40 RDW 15.0 % (13.2-15.2) 03/10/18 04:40 Plt Count 8 K/mm3 (140-440) L* 03/10/18 04:40 Eos % (Auto) Air Analysis Technician 03/09/18 07:00 Add Manual Diff Complete 03/10/18 04:40 Total Counted 100 03/10/18 04:40 Seg Neuts % (Manual) 93.0 % (40.0-70.0) H 03/10/18 04:40 Band Neutrophils % 0 % 03/10/18 04:40 Lymphocytes % (Manual) 4.0 % (13.4-35.0) L 03/10/18 04:40 Reactive Lymphs % (Man) 0 % 03/10/18 04:40 Monocytes % (Manual) 3.0 % (0.0-7.3) 03/10/18 04:40 Eosinophils % (Manual) 0 % (0.0-4.3) 03/10/18 04:40 Basophils % (Manual) 0 % (0.0-1.8) 03/10/18 04:40 Metamyelocytes % 0 % 03/10/18 04:40 Myelocytes % 0 % 03/10/18 04:40 Promyelocytes % 0 % 03/10/18 04:40 Blast Cells % 0 % 03/10/18 04:40 Nucleated RBC % Not Reportable 03/10/18 04:40 Seg Neutrophils # Man 11.0 K/mm3 (1.8-7.7) H 03/10/18 04:40 Band Neutrophils # 0.0 K/mm3 03/10/18 04:40 Lymphocytes # (Manual) 0.5 K/mm3 (1.2-5.4) L 03/10/18 04:40 Abs React Lymphs (Man) 0.0 K/mm3 03/10/18 04:40 Monocytes # (Manual) 0.4 K/mm3 (0.0-0.8) 03/10/18 04:40 Eosinophils # (Manual) 0.0 K/mm3 (0.0-0.4) 03/10/18 04:40 Basophils # (Manual) 0.0 K/mm3 (0.0-0.1) 03/10/18 04:40 Metamyelocytes # 0.0 K/mm3 03/10/18 04:40 Myelocytes # 0.0 K/mm3 03/10/18 04:40 Promyelocytes # 0.0 K/mm3 03/10/18 04:40 Blast Cells # 0.0 K/mm3 03/10/18 04:40 WBC Morphology Not Reportable 03/10/18 04:40 Hypersegmented Neuts Not Reportable 03/10/18 04:40 Hyposegmented Neuts Not Reportable 03/10/18 04:40 Hypogranular Neuts Not Reportable 03/10/18 04:40 Smudge Cells Not Reportable 03/10/18 04:40 Toxic Granulation 1+ 03/10/18 04:40 Toxic Vacuolation Not Reportable 03/10/18 04:40 Dohle Bodies 2+ 03/10/18 04:40 Pelger-Huet Anomaly Not Reportable 03/10/18 04:40 Kamar Rods Not Reportable 03/10/18 04:40 Platelet Estimate Consistent w auto 03/10/18 04:40 Clumped Platelets Not Reportable 03/10/18 04:40 Plt Clumps, EDTA Not Reportable 03/10/18 04:40 Large Platelets Not Reportable 03/10/18 04:40 Giant Platelets Not Reportable 03/10/18 04:40 Platelet Satelliting Not Reportable 03/10/18 04:40 Plt Morphology Comment Not Reportable 03/10/18 04:40 RBC Morphology Not Reportable 03/10/18 04:40 Dimorphic RBCs Not Reportable 03/10/18 04:40 Polychromasia Not Reportable 03/10/18 04:40 Hypochromasia Not Reportable 03/10/18 04:40 Poikilocytosis 1+ 03/10/18 04:40 Anisocytosis 1+ 03/10/18 04:40 Microcytosis Not Reportable 03/10/18 04:40 Macrocytosis Not Reportable 03/10/18 04:40 Spherocytes Not Reportable 03/10/18 04:40 Pappenheimer Bodies Not Reportable 03/10/18 04:40 Sickle Cells Not Reportable 03/10/18 04:40 Target Cells Rare 03/10/18 04:40 Tear Drop Cells Not Reportable 03/10/18 04:40 Ovalocytes Few 03/10/18 04:40 Helmet Cells Not Reportable 03/10/18 04:40 [place] Bodies Not Reportable 03/10/18 04:40 [place] Rings Not Reportable 03/10/18 04:40 [place] Cells Not Reportable 03/10/18 04:40 Bite Cells Not Reportable 03/10/18 04:40 Crenated Cell Not Reportable 03/10/18 04:40 Elliptocytes Not Reportable 03/10/18 04:40 Acanthocytes (Spur) Few 03/10/18 04:40 Rouleaux Not Reportable 03/10/18 04:40 Hemoglobin C Crystals Not Reportable 03/10/18 04:40 Schistocytes Not Reportable 03/10/18 04:40 Malaria parasites Not Reportable 03/10/18 04:40 Jose Bodies Not Reportable 03/10/18 04:40 Hem Pathologist Commnt No 03/10/18 04:40 PT 22.9 Sec. (12.2-14.9) H 03/09/18 07:00 INR 1.98 (0.87-1.13) H 03/09/18 07:00 POC ABG pH 7.254 (7.35-7.45) L 03/10/18 05:32 POC ABG pCO2 47.8 (35-45) H 03/10/18 05:32 POC ABG pO2 59 (80-105) L 03/10/18 05:32 POC ABG HCO3 21.2 03/10/18 05:32 POC ABG Total CO2 23 03/10/18 05:32 POC ABG O2 Sat 86 03/10/18 05:32 POC ABG Base Excess -6 03/10/18 05:32 VBG pH 7.297 (7.320-7.420) L 03/09/18 07:00 FiO2 100 % 03/10/18 05:32 Sodium 136 mmol/L (137-145) L 03/10/18 04:40 Potassium 4.0 mmol/L (3.6-5.0) 03/10/18 04:40 Chloride 96.6 mmol/L (98-107) L 03/10/18 04:40 Carbon Dioxide 21 mmol/L (22-30) L 03/10/18 04:40 Anion Gap 22 mmol/L 03/10/18 04:40 BUN 62 mg/dL (9-20) H 03/10/18 04:40 Creatinine 4.9 mg/dL (0.8-1.5) H 03/10/18 04:40 Estimated GFR 17 ml/min 03/10/18 04:40 BUN/Creatinine Ratio 13 % 03/10/18 04:40 Glucose 83 mg/dL (75-100) 03/10/18 04:40 POC Glucose 73 (70-105) 03/09/18 18:33 Lactic Acid 4.10 mmol/L (0.7-2.0) H* 03/10/18 01:00 Calcium 6.2 mg/dL (8.4-10.2) L D 03/10/18 04:40 Phosphorus 4.30 mg/dL (2.5-4.5) D 03/10/18 04:40 Magnesium 1.90 mg/dL (1.7-2.3) 03/10/18 04:40 Total Bilirubin 1.10 mg/dL (0.1-1.2) 03/09/18 07:00 AST 32 units/L (5-40) 03/09/18 07:00 ALT 28 units/L (7-56) 03/09/18 07:00 Alkaline Phosphatase 154 units/L (35-129) H 03/09/18 07:00 Total Creatine Kinase 228 units/L (55-170) H 03/09/18 07:00 Total Protein 7.4 g/dL (6.3-8.2) 03/09/18 07:00 Albumin 3.6 g/dL (3.9-5) L 03/09/18 07:00 Albumin/Globulin Ratio 0.9 % 03/09/18 07:00 Urine Color Red (Yellow) 03/10/18 06:00 Urine Turbidity Cloudy (Clear) 03/10/18 06:00 Urine pH 5.0 (5.0-7.0) 03/10/18 06:00 Ur Specific [place] 1.009 (1.003-1.030) 03/10/18 06:00 Urine Protein 100 mg/dl mg/dL (Negative) 03/10/18 06:00 Urine Glucose (UA) Neg mg/dL (Negative) 03/10/18 06:00 Urine Ketones Neg mg/dL (Negative) 03/10/18 06:00 Urine Blood Lg (Negative) 03/10/18 06:00 Urine Nitrite Neg (Negative) 03/10/18 06:00 Urine Bilirubin Neg (Negative) 03/10/18 06:00 Urine Urobilinogen < 2.0 mg/dL (<2.0) 03/10/18 06:00 Ur Leukocyte Esterase Neg (Negative) 03/10/18 06:00 Urine WBC (Auto) 32.0 /HPF (0.0-6.0) H 03/10/18 06:00 Urine RBC (Auto) > 182.0 /HPF (0.0-6.0) 03/10/18 06:00 U Epithel Cells (Auto) 5.0 /HPF (0-13.0) 03/09/18 14:39 Urine Bacteria (Auto) 2+ /HPF (Negative) 03/10/18 06:00 Urine WBC Clumps Few /HPF 03/09/18 14:39 Amorphous Crystals 3+ 03/10/18 06:00 Granular Casts 29 /LPF 03/10/18 06:00 Urine Creatinine 210.7 mg/dL (0.1-20.0) H 03/09/18 14:39 Protein/Creatinin Ratio 3.89 03/09/18 14:39 Urine Sodium 36 mmol/L 03/09/18 14:39 Urine Total Protein 820 mg/dL (5-11.8) H 03/09/18 14:39 Hepatitis A IgM Ab Non-reactive (NonReactive) 03/09/18 20:39 Hep Bs Antigen Non-reactive (Negative) 03/09/18 20:39 Hep B Core IgM Ab Non-reactive (NonReactive) 03/09/18 20:39 Hepatitis C Antibody Non-reactive (NonReactive) 03/09/18 20:39 HIV 1&2 Antibody Rapid Reactive (Non React) 03/09/18 20:39 HIV P24 Antigen Non react (Non React) 03/09/18 20:39 Influenza A (Rapid) Negative (Negative) 03/09/18 Unknown Influenza B (Rapid) Negative (Negative) 03/09/18 Unknown Blood Type O POSITIVE 03/09/18 12:36 Antibody Screen Negative 03/09/18 12:36
--- NOTE | 2018-03-10 09:52 | XRay Report ---
AP CHEST: HISTORY: Chest pain Diffuse bilateral infiltrates have developed since yesterday's exam. This may represent pulmonary edema or pneumonia. Heart size is at the upper limits of normal. No pleural effusion or pneumothorax is appreciated. IMPRESSION: Bilateral pulmonary edema versus infiltrates have developed since yesterday's exam.
[2018-03-10] MEDS: PROTONIX IV SCH (10:23)
--- NOTE | 2018-03-10 10:58 | Progress Note ---
Assessment and Plan acute renal failure, prerenal azotemia vs. ischemic ATN from hypotension lactic acidosis nausea and vomiting, likely gastroenteritis hypocalcemia - discussed with Dr Lewis, will hold off on dialysis now due to hemodynamic in stability and thrombocytopenia, he will be given one dose lasix 40 mg and assess UOP, he will likely need another dose later on today - he has active urine sediment, possibly from HIV+ or DIC, will check vascultitis work up - CK ordered for generalized body aches to r/o rhabdo - calcium gluconate 2 gram IV ordered again today - renal US ordered, negative hydronephrosis - renally dose meds - strict I&O, discussed with RN - daily weight thank you for allowing to participate in Mr Liu's care. Joseph Stratton MD cell [phone] Subjective Date of service: 03/10/18 Principal diagnosis: acute renal failure Interval history: he started to have more SOB overnight required BIPAP, there was not urine output recorded by his nurse but he stated he urinated twice and almost filled the urinal Objective - Vital Signs Vital signs: Vital Signs - 12hr 03/09/18 03/09/18 03/09/18 23:00 23:15 23:30 Temperature Pulse Rate 111 H 112 H Pulse Rate [ Anterior Bilateral Throughout] Pulse Rate [ From Monitor] Respiratory 36 H 27 H Rate Respiratory Rate [Anterior Bilateral Throughout] Blood Pressure 109/73 109/76 109/76 O2 Sat by Pulse 91 90 88 Oximetry 03/09/18 03/09/18 03/09/18 23:34 23:45 23:58 Temperature 97.8 F Pulse Rate Pulse Rate [ Anterior Bilateral Throughout] Pulse Rate [ From Monitor] Respiratory Rate Respiratory Rate [Anterior Bilateral Throughout] Blood Pressure 111/77 O2 Sat by Pulse 86 93 Oximetry 03/10/18 03/10/18 03/10/18 00:00 00:15 00:30 Temperature Pulse Rate 102 H 114 H 117 H Pulse Rate [ Anterior Bilateral Throughout] Pulse Rate [ From Monitor] Respiratory 29 H 27 H 33 H Rate Respiratory Rate [Anterior Bilateral Throughout] Blood Pressure 111/77 109/70 116/83 O2 Sat by Pulse 94 87 92 Oximetry 03/10/18 03/10/18 03/10/18 00:45 00:54 01:00 Temperature Pulse Rate 115 H 112 H Pulse Rate [ Anterior Bilateral Throughout] Pulse Rate [ From Monitor] Respiratory 31 H 44 H 32 H Rate Respiratory Rate [Anterior Bilateral Throughout] Blood Pressure 115/78 110/71 O2 Sat by Pulse 89 93 Oximetry 03/10/18 03/10/18 03/10/18 01:15 01:29 01:30 Temperature Pulse Rate 103 H 105 H Pulse Rate [ Anterior Bilateral Throughout] Pulse Rate [ 112 H From Monitor] Respiratory 32 H 37 H 41 H Rate Respiratory Rate [Anterior Bilateral Throughout] Blood Pressure 116/75 120/71 O2 Sat by Pulse 93 89 91 Oximetry 03/10/18 03/10/18 03/10/18 01:45 02:00 02:15 Temperature Pulse Rate 114 H 105 H 110 H Pulse Rate [ Anterior Bilateral Throughout] Pulse Rate [ From Monitor] Respiratory 17 29 H 30 H Rate Respiratory Rate [Anterior Bilateral Throughout] Blood Pressure 120/71 101/55 97/49 O2 Sat by Pulse 93 87 91 Oximetry 03/10/18 03/10/18 03/10/18 02:30 02:45 03:00 Temperature Pulse Rate 107 H 103 H 107 H Pulse Rate [ Anterior Bilateral Throughout] Pulse Rate [ From Monitor] Respiratory 32 H 34 H 24 Rate Respiratory Rate [Anterior Bilateral Throughout] Blood Pressure 99/53 104/53 98/50 O2 Sat by Pulse 82 L 87 81 L Oximetry 03/10/18 03/10/18 03/10/18 03:15 03:30 03:45 Temperature Pulse Rate 111 H 116 H 111 H Pulse Rate [ Anterior Bilateral Throughout] Pulse Rate [ From Monitor] Respiratory 39 H 39 H 39 H Rate Respiratory Rate [Anterior Bilateral Throughout] Blood Pressure 100/56 96/46 93/52 O2 Sat by Pulse 87 85 92 Oximetry 03/10/18 03/10/18 03/10/18 04:00 04:15 04:30 Temperature 98.3 F Pulse Rate 113 H 110 H 114 H Pulse Rate [ Anterior Bilateral Throughout] Pulse Rate [ From Monitor] Respiratory 42 H 44 H 48 H Rate Respiratory Rate [Anterior Bilateral Throughout] Blood Pressure 96/42 107/66 120/79 O2 Sat by Pulse 94 92 95 Oximetry 03/10/18 03/10/18 03/10/18 04:45 05:00 05:15 Temperature Pulse Rate 113 H 144 H 140 H Pulse Rate [ Anterior Bilateral Throughout] Pulse Rate [ 148 H From Monitor] Respiratory 48 H 47 H 46 H Rate Respiratory Rate [Anterior Bilateral Throughout] Blood Pressure 111/70 101/68 101/68 O2 Sat by Pulse 95 95 91 Oximetry 03/10/18 03/10/18 03/10/18 05:31 05:45 06:01 Temperature Pulse Rate 163 H 159 H 140 H Pulse Rate [ Anterior Bilateral Throughout] Pulse Rate [ From Monitor] Respiratory 56 H 34 H 49 H Rate Respiratory Rate [Anterior Bilateral Throughout] Blood Pressure 119/80 119/80 94/45 O2 Sat by Pulse 85 82 L 90 Oximetry 03/10/18 03/10/18 03/10/18 06:15 06:31 06:45 Temperature Pulse Rate 148 H 164 H 158 H Pulse Rate [ Anterior Bilateral Throughout] Pulse Rate [ From Monitor] Respiratory 39 H 54 H 46 H Rate Respiratory Rate [Anterior Bilateral Throughout] Blood Pressure 94/45 107/62 107/62 O2 Sat by Pulse 90 81 L 90 Oximetry 03/10/18 03/10/18 03/10/18 06:57 07:01 07:15 Temperature Pulse Rate 157 H 146 H 162 H Pulse Rate [ Anterior Bilateral Throughout] Pulse Rate [ From Monitor] Respiratory 41 H 38 H 44 H Rate Respiratory Rate [Anterior Bilateral Throughout] Blood Pressure 99/57 93/53 89/56 O2 Sat by Pulse 94 96 97 Oximetry 03/10/18 03/10/18 03/10/18 07:31 07:45 09:33 Temperature Pulse Rate 166 H 172 H 146 H Pulse Rate [ Anterior Bilateral Throughout] Pulse Rate [ From Monitor] Respiratory 46 H 45 H 45 H Rate Respiratory Rate [Anterior Bilateral Throughout] Blood Pressure 81/50 91/53 106/64 O2 Sat by Pulse 95 93 96 Oximetry 03/10/18 03/10/18 09:36 10:00 Temperature Pulse Rate Pulse Rate [ 158 H Anterior Bilateral Throughout] Pulse Rate [ From Monitor] Respiratory Rate Respiratory 40 H Rate [Anterior Bilateral Throughout] Blood Pressure O2 Sat by Pulse 94 Oximetry - General Appearance General appearance: well-developed, moderate distress EENT: ATNC, PERRL Neck: no JVD, no carotid bruit Respiratory: Present: Rales, Ronchi Cardiology: tachycardia, S1S2 Gastrointestinal: normoactive bowel sounds, no tenderness, no distended Integumentary: no rash, warm and dry Neurologic: no focal deficit, no asterixis, alert and oriented x3 Musculoskeletal: other (no edema in BLE) Psychiatric: mood/affect appropriate, cooperative - Lab 03/10/18 04:40 03/10/18 04:40 Most recent lab results Calcium 6.2 mg/dL (8.4-10.2) L D 03/10/18 04:40 Phosphorus 4.30 mg/dL (2.5-4.5) D 03/10/18 04:40 Magnesium 1.90 mg/dL (1.7-2.3) 03/10/18 04:40 Urine Creatinine 210.7 mg/dL (0.1-20.0) H 03/09/18 14:39 Urine Sodium 36 mmol/L 03/09/18 14:39 Urine Total Protein 820 mg/dL (5-11.8) H 03/09/18 14:39 Medications & Allergies - Medications Allergies/Adverse Reactions: Allergies clindamycin Allergy (Verified 03/09/18 06:43) Swelling Home Medications: Home Medications Medication Instructions Recorded Confirmed Last Taken Type No Known Home Medications [No 03/09/18 03/09/18 Unknown History Reported Home Medications] Active Medications: Generic Name Dose Route Start Last Admin Trade Name Freq PRN Reason Stop Dose Admin Dextrose 50 ml 03/09/18 16:15 D50w (25gm) Syringe IV PRN PRN HYPOGLYCEMIA Furosemide 40 mg 03/10/18 11:00 03/10/18 10:23 Lasix IV 03/10/18 11:01 40 mg ONCE ONE Administration Norepinephrine 4 mg in 250 mls @ 7.5 mls/hr 03/09/18 23:45 03/10/18 10:25 Levophed Drip 4 Mg/Ns 250 Ml IV 26 mcg/min TITR LIU 97.5 mls/hr Titration Protocol 2 MCG/MIN Vasopressin 20 unit/ Sodium 101 mls @ 9.09 mls/hr 03/10/18 11:00 Chloride IV TITR LIU Protocol 0.03 UNITS/MIN Cefepime HCl 2 gm in 100 mls @ 200 mls/hr 03/10/18 11:00 Maxipime/Ns 2 Gm/100 Ml IV Q24HR LIU Dextrose 1,000 mls @ 42 mls/hr 03/10/18 11:00 D10w IV DIRECT LIU Calcium Gluconate 2,000 mg/ 120 mls @ 660 mls/hr 03/10/18 10:52 Sodium Chloride IV 03/10/18 11:02 ONCE ONE Morphine Sulfate 2 mg 03/09/18 10:41 03/10/18 00:54 Morphine IV 2 mg Q4H PRN Administration Pain, Moderate (4-6) Pantoprazole Sodium 40 mg 03/09/18 13:00 03/10/18 10:23 Protonix IV 40 mg QDAY LIU Administration Sodium Chloride 10 ml 03/09/18 22:00 03/10/18 10:24 Sodium Chloride Flush Syringe 10 Ml IV 10 ml BID LIU Administration Sodium Chloride 10 ml 03/09/18 10:41 Sodium Chloride Flush Syringe 10 Ml IV PRN PRN LINE FLUSH
[2018-03-10] MEDS ORDERED: LASIX IV ONE (11:00)
[2018-03-10] MEDS: D10W 1,000 ML IV SCH (11:34)
[2018-03-10] MEDS: Vasostrict 20 UNIT in NACL 0.9% 100 ML IV SCH ×2 (11:40→18:13)
[2018-03-10] MEDS ORDERED: CALCIUM GLUCONATE 2,000 MG in NACL 0.9% 100 ML IV ONE (12:30)
[2018-03-10] MEDS: MAXIPIME/NS 2 GM/100 ML 2 GM/100 ML BAG IV SCH (12:59)
--- NOTE | 2018-03-10 13:01 | Progress Note ---
Assessment and Plan 33 y/o male with thrombocytopenia, renal failure, and hypotension. 1. Positive HIV status. Has been noncompliant with therapy. Also with GNR in blood 2/4 bottles. ID has already been consulted but will escalate care by adding cefepime therapy and stopping rocephin. Hold on anti-retroviral therapy at this point. Mother does not know HIV status. 2. Pulmonary-acute pulmonary edema. Continue bipap. Rpt ABG better than expected. Spoke with renal and they are ok with stopping fluids and giving IV lasix. May require intubation which I have discussed at length with the patient and his mother. 3. Renal- Cr did improve but excessive volume has lead to pulmonary edema. Will give lasix now and then again somewhere between 2-4 pm today. May need pina for strict I/O. May need HD 4. Heme-severe thrombocyoptenia. At risk for spontaneous bleed. Spoke with IMS and platelets have been ordered. Need to get them above 50K if vascath is needed. IMS consulted heme. 5. Continue NPO status. Ok with GI prophy and SCD's. 6. Overall prognosis is guarded to poor. Patient is extremely ill with several organ systems failing. CCT 31 minutes Subjective Date of service: 03/10/18 Principal diagnosis: acute renal failure Interval history: Subsequently patient became worse overnight. Now in florid pulmonary edema despite being hypotensive on pressors. Cr did respond to fluid and he is still making some urine. Mother at bedside who does not know of his HIV status. Patient awake and alert on bipap at 60% Objective - Constitutional Vitals: Vital Signs - 12hr 03/10/18 03/10/18 03/10/18 01:00 01:15 01:29 Temperature Pulse Rate 112 H 103 H Pulse Rate [ Anterior Bilateral Throughout] Pulse Rate [ 112 H From Monitor] Respiratory 32 H 32 H 37 H Rate Respiratory Rate [Anterior Bilateral Throughout] Blood Pressure 110/71 116/75 O2 Sat by Pulse 93 93 89 Oximetry 03/10/18 03/10/18 03/10/18 01:30 01:45 02:00 Temperature Pulse Rate 105 H 114 H 105 H Pulse Rate [ Anterior Bilateral Throughout] Pulse Rate [ From Monitor] Respiratory 41 H 17 29 H Rate Respiratory Rate [Anterior Bilateral Throughout] Blood Pressure 120/71 120/71 101/55 O2 Sat by Pulse 91 93 87 Oximetry 03/10/18 03/10/18 03/10/18 02:15 02:30 02:45 Temperature Pulse Rate 110 H 107 H 103 H Pulse Rate [ Anterior Bilateral Throughout] Pulse Rate [ From Monitor] Respiratory 30 H 32 H 34 H Rate Respiratory Rate [Anterior Bilateral Throughout] Blood Pressure 97/49 99/53 104/53 O2 Sat by Pulse 91 82 L 87 Oximetry 03/10/18 03/10/18 03/10/18 03:00 03:15 03:30 Temperature Pulse Rate 107 H 111 H 116 H Pulse Rate [ Anterior Bilateral Throughout] Pulse Rate [ From Monitor] Respiratory 24 39 H 39 H Rate Respiratory Rate [Anterior Bilateral Throughout] Blood Pressure 98/50 100/56 96/46 O2 Sat by Pulse 81 L 87 85 Oximetry 03/10/18 03/10/18 03/10/18 03:45 04:00 04:15 Temperature 98.3 F Pulse Rate 111 H 113 H 110 H Pulse Rate [ Anterior Bilateral Throughout] Pulse Rate [ From Monitor] Respiratory 39 H 42 H 44 H Rate Respiratory Rate [Anterior Bilateral Throughout] Blood Pressure 93/52 96/42 107/66 O2 Sat by Pulse 92 94 92 Oximetry 03/10/18 03/10/18 03/10/18 04:30 04:45 05:00 Temperature Pulse Rate 114 H 113 H 144 H Pulse Rate [ Anterior Bilateral Throughout] Pulse Rate [ 148 H From Monitor] Respiratory 48 H 48 H 47 H Rate Respiratory Rate [Anterior Bilateral Throughout] Blood Pressure 120/79 111/70 101/68 O2 Sat by Pulse 95 95 95 Oximetry 03/10/18 03/10/18 03/10/18 05:15 05:31 05:45 Temperature Pulse Rate 140 H 163 H 159 H Pulse Rate [ Anterior Bilateral Throughout] Pulse Rate [ From Monitor] Respiratory 46 H 56 H 34 H Rate Respiratory Rate [Anterior Bilateral Throughout] Blood Pressure 101/68 119/80 119/80 O2 Sat by Pulse 91 85 82 L Oximetry 03/10/18 03/10/18 03/10/18 06:01 06:15 06:31 Temperature Pulse Rate 140 H 148 H 164 H Pulse Rate [ Anterior Bilateral Throughout] Pulse Rate [ From Monitor] Respiratory 49 H 39 H 54 H Rate Respiratory Rate [Anterior Bilateral Throughout] Blood Pressure 94/45 94/45 107/62 O2 Sat by Pulse 90 90 81 L Oximetry 03/10/18 03/10/18 03/10/18 06:45 06:57 07:01 Temperature Pulse Rate 158 H 157 H 146 H Pulse Rate [ Anterior Bilateral Throughout] Pulse Rate [ From Monitor] Respiratory 46 H 41 H 38 H Rate Respiratory Rate [Anterior Bilateral Throughout] Blood Pressure 107/62 99/57 93/53 O2 Sat by Pulse 90 94 96 Oximetry 03/10/18 03/10/18 03/10/18 07:15 07:31 07:45 Temperature Pulse Rate 162 H 166 H 172 H Pulse Rate [ Anterior Bilateral Throughout] Pulse Rate [ From Monitor] Respiratory 44 H 46 H 45 H Rate Respiratory Rate [Anterior Bilateral Throughout] Blood Pressure 89/56 81/50 91/53 O2 Sat by Pulse 97 95 93 Oximetry 03/10/18 03/10/18 03/10/18 09:33 09:36 10:00 Temperature Pulse Rate 146 H Pulse Rate [ 158 H Anterior Bilateral Throughout] Pulse Rate [ From Monitor] Respiratory 45 H Rate Respiratory 40 H Rate [Anterior Bilateral Throughout] Blood Pressure 106/64 O2 Sat by Pulse 96 94 Oximetry 03/10/18 12:00 Temperature 98 F Pulse Rate Pulse Rate [ Anterior Bilateral Throughout] Pulse Rate [ From Monitor] Respiratory Rate Respiratory Rate [Anterior Bilateral Throughout] Blood Pressure O2 Sat by Pulse Oximetry General appearance: Present: mild distress - EENT Eyes: PERRL ENT: hearing intact - Neck Neck: supple - Respiratory Respiratory effort: labored, accessory muscle use Respiratory: bilateral: rales - Cardiovascular Rhythm: other (sinus tach) Extremities: no ischemia - Gastrointestinal General gastrointestinal: Present: soft, non-tender Rectal Exam: deferred - Genitourinary Male genitourinary: deferred - Neurologic Neurologic: CNII-XII intact - Labs CBC & Chem 7: 03/10/18 04:40 03/10/18 04:40 Labs: Abnormal lab results 03/09/18 03/09/18 03/09/18 Range/Units 07:00 12:36 14:39 WBC (4.5-11.0) K/mm3 Hgb (11.8-15.2) gm/dl Plt Count (140-440) K/mm3 Seg Neuts % (Manual) (40.0-70.0) % Lymphocytes % (Manual) (13.4-35.0) % Seg Neutrophils # Man (1.8-7.7) K/mm3 Lymphocytes # (Manual) (1.2-5.4) K/mm3 POC ABG pH (7.35-7.45) POC ABG pCO2 (35-45) POC ABG pO2 (80-105) Sodium (137-145) mmol/L Chloride (98-107) mmol/L Carbon Dioxide (22-30) mmol/L BUN (9-20) mg/dL Creatinine (0.8-1.5) mg/dL POC Glucose (70-105) Lactic Acid 8.30 H* (0.7-2.0) mmol/L Calcium (8.4-10.2) mg/dL Phosphorus 5.40 H (2.5-4.5) mg/dL Magnesium 1.20 L (1.7-2.3) mg/dL Lactate Dehydrogenase (91-180) units/L Total Creatine Kinase 228 H (55-170) units/L Urine WBC (Auto) 86.0 H (0.0-6.0) /HPF Urine Creatinine (0.1-20.0) mg/dL Urine Total Protein (5-11.8) mg/dL 03/09/18 03/09/18 03/09/18 Range/Units 14:39 14:39 15:12 WBC (4.5-11.0) K/mm3 Hgb (11.8-15.2) gm/dl Plt Count (140-440) K/mm3 Seg Neuts % (Manual) (40.0-70.0) % Lymphocytes % (Manual) (13.4-35.0) % Seg Neutrophils # Man (1.8-7.7) K/mm3 Lymphocytes # (Manual) (1.2-5.4) K/mm3 POC ABG pH (7.35-7.45) POC ABG pCO2 (35-45) POC ABG pO2 (80-105) Sodium (137-145) mmol/L Chloride (98-107) mmol/L Carbon Dioxide (22-30) mmol/L BUN (9-20) mg/dL Creatinine (0.8-1.5) mg/dL POC Glucose (70-105) Lactic Acid 5.90 H* (0.7-2.0) mmol/L Calcium (8.4-10.2) mg/dL Phosphorus (2.5-4.5) mg/dL Magnesium (1.7-2.3) mg/dL Lactate Dehydrogenase (91-180) units/L Total Creatine Kinase (55-170) units/L Urine WBC (Auto) (0.0-6.0) /HPF Urine Creatinine 217.1 H 210.7 H (0.1-20.0) mg/dL Urine Total Protein 820 H (5-11.8) mg/dL 03/09/18 03/09/18 03/09/18 Range/Units 15:53 18:20 20:39 WBC (4.5-11.0) K/mm3 Hgb (11.8-15.2) gm/dl Plt Count (140-440) K/mm3 Seg Neuts % (Manual) (40.0-70.0) % Lymphocytes % (Manual) (13.4-35.0) % Seg Neutrophils # Man (1.8-7.7) K/mm3 Lymphocytes # (Manual) (1.2-5.4) K/mm3 POC ABG pH (7.35-7.45) POC ABG pCO2 (35-45) POC ABG pO2 (80-105) Sodium (137-145) mmol/L Chloride (98-107) mmol/L Carbon Dioxide (22-30) mmol/L BUN (9-20) mg/dL Creatinine (0.8-1.5) mg/dL POC Glucose 56 L (70-105) Lactic Acid 5.10 H* 4.40 H* (0.7-2.0) mmol/L Calcium (8.4-10.2) mg/dL Phosphorus (2.5-4.5) mg/dL Magnesium (1.7-2.3) mg/dL Lactate Dehydrogenase (91-180) units/L Total Creatine Kinase (55-170) units/L Urine WBC (Auto) (0.0-6.0) /HPF Urine Creatinine (0.1-20.0) mg/dL Urine Total Protein (5-11.8) mg/dL 03/09/18 03/09/18 03/10/18 Range/Units 21:33 23:08 01:00 WBC (4.5-11.0) K/mm3 Hgb (11.8-15.2) gm/dl Plt Count (140-440) K/mm3 Seg Neuts % (Manual) (40.0-70.0) % Lymphocytes % (Manual) (13.4-35.0) % Seg Neutrophils # Man (1.8-7.7) K/mm3 Lymphocytes # (Manual) (1.2-5.4) K/mm3 POC ABG pH (7.35-7.45) POC ABG pCO2 (35-45) POC ABG pO2 (80-105) Sodium (137-145) mmol/L Chloride (98-107) mmol/L Carbon Dioxide (22-30) mmol/L BUN (9-20) mg/dL Creatinine (0.8-1.5) mg/dL POC Glucose (70-105) Lactic Acid 4.90 H* 4.10 H* 4.10 H* (0.7-2.0) mmol/L Calcium (8.4-10.2) mg/dL Phosphorus (2.5-4.5) mg/dL Magnesium (1.7-2.3) mg/dL Lactate Dehydrogenase (91-180) units/L Total Creatine Kinase (55-170) units/L Urine WBC (Auto) (0.0-6.0) /HPF Urine Creatinine (0.1-20.0) mg/dL Urine Total Protein (5-11.8) mg/dL 03/10/18 03/10/18 03/10/18 Range/Units 04:40 04:40 05:32 WBC 11.8 H (4.5-11.0) K/mm3 Hgb 11.7 L (11.8-15.2) gm/dl Plt Count 8 L* (140-440) K/mm3 Seg Neuts % (Manual) 93.0 H (40.0-70.0) % Lymphocytes % (Manual) 4.0 L (13.4-35.0) % Seg Neutrophils # Man 11.0 H (1.8-7.7) K/mm3 Lymphocytes # (Manual) 0.5 L (1.2-5.4) K/mm3 POC ABG pH 7.254 L (7.35-7.45) POC ABG pCO2 47.8 H (35-45) POC ABG pO2 59 L (80-105) Sodium 136 L (137-145) mmol/L Chloride 96.6 L (98-107) mmol/L Carbon Dioxide 21 L (22-30) mmol/L BUN 62 H (9-20) mg/dL Creatinine 4.9 H (0.8-1.5) mg/dL POC Glucose (70-105) Lactic Acid (0.7-2.0) mmol/L Calcium 6.2 L D (8.4-10.2) mg/dL Phosphorus (2.5-4.5) mg/dL Magnesium (1.7-2.3) mg/dL Lactate Dehydrogenase (91-180) units/L Total Creatine Kinase (55-170) units/L Urine WBC (Auto) (0.0-6.0) /HPF Urine Creatinine (0.1-20.0) mg/dL Urine Total Protein (5-11.8) mg/dL 03/10/18 03/10/18 03/10/18 Range/Units 06:00 09:10 09:14 WBC (4.5-11.0) K/mm3 Hgb (11.8-15.2) gm/dl Plt Count (140-440) K/mm3 Seg Neuts % (Manual) (40.0-70.0) % Lymphocytes % (Manual) (13.4-35.0) % Seg Neutrophils # Man (1.8-7.7) K/mm3 Lymphocytes # (Manual) (1.2-5.4) K/mm3 POC ABG pH 7.266 L (7.35-7.45) POC ABG pCO2 (35-45) POC ABG pO2 (80-105) Sodium (137-145) mmol/L Chloride (98-107) mmol/L Carbon Dioxide (22-30) mmol/L BUN (9-20) mg/dL Creatinine (0.8-1.5) mg/dL POC Glucose 56 L (70-105) Lactic Acid (0.7-2.0) mmol/L Calcium (8.4-10.2) mg/dL Phosphorus (2.5-4.5) mg/dL Magnesium (1.7-2.3) mg/dL Lactate Dehydrogenase (91-180) units/L Total Creatine Kinase (55-170) units/L Urine WBC (Auto) 32.0 H (0.0-6.0) /HPF Urine Creatinine (0.1-20.0) mg/dL Urine Total Protein (5-11.8) mg/dL 03/10/18 03/10/18 Range/Units 11:16 11:51 WBC (4.5-11.0) K/mm3 Hgb (11.8-15.2) gm/dl Plt Count (140-440) K/mm3 Seg Neuts % (Manual) (40.0-70.0) % Lymphocytes % (Manual) (13.4-35.0) % Seg Neutrophils # Man (1.8-7.7) K/mm3 Lymphocytes # (Manual) (1.2-5.4) K/mm3 POC ABG pH (7.35-7.45) POC ABG pCO2 (35-45) POC ABG pO2 (80-105) Sodium (137-145) mmol/L Chloride (98-107) mmol/L Carbon Dioxide (22-30) mmol/L BUN (9-20) mg/dL Creatinine (0.8-1.5) mg/dL POC Glucose 109 H (70-105) Lactic Acid (0.7-2.0) mmol/L Calcium (8.4-10.2) mg/dL Phosphorus (2.5-4.5) mg/dL Magnesium (1.7-2.3) mg/dL Lactate Dehydrogenase 338 H (91-180) units/L Total Creatine Kinase 404 H (55-170) units/L Urine WBC (Auto) (0.0-6.0) /HPF Urine Creatinine (0.1-20.0) mg/dL Urine Total Protein (5-11.8) mg/dL - Imaging and cardiology Chest x-ray: image reviewed (bilateral alveolar infiltrates. Most likely pulmonary edema given current clinical picture) Medications & Allergies - Medications Allergies/Adverse Reactions: Allergies clindamycin Allergy (Verified 03/09/18 06:43) Swelling Home Medications: Home Medications Medication Instructions Recorded Confirmed Last Taken Type No Known Home Medications [No 03/09/18 03/09/18 Unknown History Reported Home Medications] Active Medications: Generic Name Dose Route Start Last Admin Trade Name Freq PRN Reason Stop Dose Admin Dextrose 50 ml 03/09/18 16:15 D50w (25gm) Syringe IV PRN PRN HYPOGLYCEMIA Norepinephrine 4 mg in 250 mls @ 7.5 mls/hr 03/09/18 23:45 03/10/18 11:35 Levophed Drip 4 Mg/Ns 250 Ml IV 30 mcg/min TITR LIU 112.5 mls/hr Administration Protocol 2 MCG/MIN Vasopressin 20 unit/ Sodium 101 mls @ 9.09 mls/hr 03/10/18 11:00 03/10/18 11:40 Chloride IV 0.03 units/min TITR LIU 9.09 mls/hr Administration Protocol 0.03 UNITS/MIN Cefepime HCl 2 gm in 100 mls @ 200 mls/hr 03/10/18 11:00 Maxipime/Ns 2 Gm/100 Ml IV Q24HR LIU Dextrose 1,000 mls @ 42 mls/hr 03/10/18 11:00 03/10/18 11:34 D10w IV 42 mls/hr DIRECT LIU Administration Morphine Sulfate 2 mg 03/09/18 10:41 03/10/18 00:54 Morphine IV 2 mg Q4H PRN Administration Pain, Moderate (4-6) Pantoprazole Sodium 40 mg 03/09/18 13:00 03/10/18 10:23 Protonix IV 40 mg QDAY LIU Administration Sodium Chloride 10 ml 03/09/18 22:00 03/10/18 10:24 Sodium Chloride Flush Syringe 10 Ml IV 10 ml BID LIU Administration Sodium Chloride 10 ml 03/09/18 10:41 Sodium Chloride Flush Syringe 10 Ml IV PRN PRN LINE FLUSH
--- NOTE | 2018-03-10 16:05 | Progress Note ---
Assessment and Plan Cultures: 03/09/2018 blood culture: Hemophilus hemolyticus in both sets 03/09/2018 influenza rapid: Negative A/P: 33/M with no medical history, admitted with: 1) Septic shock requiring pressors: F/U acute hepatitis panel, C3, C4, FELICIA and ANCA panel. 2) Acute respiratory failure: on BiPAP. Initial CXR not suggestive of pneumonia, low suspicion for PJP pneumonia. 3) Haemophilus hemolyticus bacteremia: source unclear ?lung. Initial CXR not suggestive of pneumonia. Continue Cefepime for now. 4) HIV positive: Apparently he has been HIV positive, used to be on meds - Genvoya but stopped taking it 6 months ago, states his last CD4 count was 400+. 5) Acute renal failure, severe thrombocytopenia, schistocytes +, coagulopathy: TTP v/s DIC. Nephrology following. Hematology consulted. d/w Dr. Lewis. UA showed 86 WBCs and significant hematuria. renally dose abx. Recs: - continue Cefepime, renally adjusted - HIV PCR and CD4 count ordered - Acute renal failure, severe thrombocytopenia, schistocytes +: TTP v/s DIC. Nephrology following. Hematology consult pending. - critically ill. Guarded prognosis Will follow. D/W Drs. Lewis and Igor. Kaylyn Vasquez MD [facility] C: [phone] O: [phone] F: [phone] Subjective Date of service: 03/10/18 Principal diagnosis: acute renal failure Interval history: Remains critically ill, now on BiPAP. HIV came back positive. Apparently he has been HIV positive, used to be on meds - Genvoya but stopped taking it 6 months ago, states his last CD4 count was 400+. Objective - Exam Narrative Exam: Physical Exam: Constitutional: Alert, cooperative. resp distress, on BiPAP Head, Ears, Nose: Normocephalic, atraumatic. External ears, nose normal Eyes: Conjunctivae/corneas clear. No icterus. No ptosis. Neck: Supple, no meningeal signs Oral: on BiPAP Cardiovascular: S1, S2 normal. Respiratory: Good air entry, clear to auscultation bilaterally GI: Mild diffuse tenderness; bowel sounds normal. No peritoneal signs Musculoskeletal: No pedal edema, no cyanosis. Skin: No rash or abscess Hem/Lymphatic: No palpable cervical or supraclavicular nodes. No lymphangitis Psych: Mood ok. Affect normal Neurological: Awake, alert, oriented. No gross abnormality - Constitutional Vitals: Vital Signs Temp Pulse Resp BP Pulse Ox 98 F 158 H 40 H 106/64 94 03/10/18 12:00 03/10/18 09:36 03/10/18 09:36 03/10/18 09:33 03/10/18 10:00 Temperature -Last 24 Hours Temperature 98 F Temperature 98.3 F Temperature 97.8 F - Labs CBC & Chem 7: 03/10/18 04:40 03/10/18 04:40 Labs: Abnormal lab results 03/09/18 03/09/18 03/09/18 Range/Units 14:39 14:39 15:12 WBC (4.5-11.0) K/mm3 Hgb (11.8-15.2) gm/dl Plt Count (140-440) K/mm3 Seg Neuts % (Manual) (40.0-70.0) % Lymphocytes % (Manual) (13.4-35.0) % Seg Neutrophils # Man (1.8-7.7) K/mm3 Lymphocytes # (Manual) (1.2-5.4) K/mm3 POC ABG pH (7.35-7.45) POC ABG pCO2 (35-45) POC ABG pO2 (80-105) Sodium (137-145) mmol/L Chloride (98-107) mmol/L Carbon Dioxide (22-30) mmol/L BUN (9-20) mg/dL Creatinine (0.8-1.5) mg/dL POC Glucose (70-105) Lactic Acid 5.90 H* (0.7-2.0) mmol/L Calcium (8.4-10.2) mg/dL Lactate Dehydrogenase (91-180) units/L Total Creatine Kinase (55-170) units/L NT-Pro-B Natriuret Pep (0-450) pg/mL Urine WBC (Auto) 86.0 H (0.0-6.0) /HPF Urine Total Protein 820 H (5-11.8) mg/dL 03/09/18 03/09/18 03/09/18 Range/Units 18:20 20:39 21:33 WBC (4.5-11.0) K/mm3 Hgb (11.8-15.2) gm/dl Plt Count (140-440) K/mm3 Seg Neuts % (Manual) (40.0-70.0) % Lymphocytes % (Manual) (13.4-35.0) % Seg Neutrophils # Man (1.8-7.7) K/mm3 Lymphocytes # (Manual) (1.2-5.4) K/mm3 POC ABG pH (7.35-7.45) POC ABG pCO2 (35-45) POC ABG pO2 (80-105) Sodium (137-145) mmol/L Chloride (98-107) mmol/L Carbon Dioxide (22-30) mmol/L BUN (9-20) mg/dL Creatinine (0.8-1.5) mg/dL POC Glucose (70-105) Lactic Acid 5.10 H* 4.40 H* 4.90 H* (0.7-2.0) mmol/L Calcium (8.4-10.2) mg/dL Lactate Dehydrogenase (91-180) units/L Total Creatine Kinase (55-170) units/L NT-Pro-B Natriuret Pep (0-450) pg/mL Urine WBC (Auto) (0.0-6.0) /HPF Urine Total Protein (5-11.8) mg/dL 03/09/18 03/10/18 03/10/18 Range/Units 23:08 01:00 04:40 WBC 11.8 H (4.5-11.0) K/mm3 Hgb 11.7 L (11.8-15.2) gm/dl Plt Count 8 L* (140-440) K/mm3 Seg Neuts % (Manual) 93.0 H (40.0-70.0) % Lymphocytes % (Manual) 4.0 L (13.4-35.0) % Seg Neutrophils # Man 11.0 H (1.8-7.7) K/mm3 Lymphocytes # (Manual) 0.5 L (1.2-5.4) K/mm3 POC ABG pH (7.35-7.45) POC ABG pCO2 (35-45) POC ABG pO2 (80-105) Sodium (137-145) mmol/L Chloride (98-107) mmol/L Carbon Dioxide (22-30) mmol/L BUN (9-20) mg/dL Creatinine (0.8-1.5) mg/dL POC Glucose (70-105) Lactic Acid 4.10 H* 4.10 H* (0.7-2.0) mmol/L Calcium (8.4-10.2) mg/dL Lactate Dehydrogenase (91-180) units/L Total Creatine Kinase (55-170) units/L NT-Pro-B Natriuret Pep (0-450) pg/mL Urine WBC (Auto) (0.0-6.0) /HPF Urine Total Protein (5-11.8) mg/dL 03/10/18 03/10/18 03/10/18 Range/Units 04:40 05:32 06:00 WBC (4.5-11.0) K/mm3 Hgb (11.8-15.2) gm/dl Plt Count (140-440) K/mm3 Seg Neuts % (Manual) (40.0-70.0) % Lymphocytes % (Manual) (13.4-35.0) % Seg Neutrophils # Man (1.8-7.7) K/mm3 Lymphocytes # (Manual) (1.2-5.4) K/mm3 POC ABG pH 7.254 L (7.35-7.45) POC ABG pCO2 47.8 H (35-45) POC ABG pO2 59 L (80-105) Sodium 136 L (137-145) mmol/L Chloride 96.6 L (98-107) mmol/L Carbon Dioxide 21 L (22-30) mmol/L BUN 62 H (9-20) mg/dL Creatinine 4.9 H (0.8-1.5) mg/dL POC Glucose (70-105) Lactic Acid (0.7-2.0) mmol/L Calcium 6.2 L D (8.4-10.2) mg/dL Lactate Dehydrogenase (91-180) units/L Total Creatine Kinase (55-170) units/L NT-Pro-B Natriuret Pep (0-450) pg/mL Urine WBC (Auto) 32.0 H (0.0-6.0) /HPF Urine Total Protein (5-11.8) mg/dL 03/10/18 03/10/1803/10/19 Range/Units 09:10 09:14 11:16 WBC (4.5-11.0) K/mm3 Hgb (11.8-15.2) gm/dl Plt Count (140-440) K/mm3 Seg Neuts % (Manual) (40.0-70.0) % Lymphocytes % (Manual) (13.4-35.0) % Seg Neutrophils # Man (1.8-7.7) K/mm3 Lymphocytes # (Manual) (1.2-5.4) K/mm3 POC ABG pH 7.266 L (7.35-7.45) POC ABG pCO2 (35-45) POC ABG pO2 (80-105) Sodium (137-145) mmol/L Chloride (98-107) mmol/L Carbon Dioxide (22-30) mmol/L BUN (9-20) mg/dL Creatinine (0.8-1.5) mg/dL POC Glucose 56 L (70-105) Lactic Acid (0.7-2.0) mmol/L Calcium (8.4-10.2) mg/dL Lactate Dehydrogenase (91-180) units/L Total Creatine Kinase (55-170) units/L NT-Pro-B Natriuret Pep 67835 H (0-450) pg/mL Urine WBC (Auto) (0.0-6.0) /HPF Urine Total Protein (5-11.8) mg/dL 03/10/18 03/10/18 Range/Units 11:16 11:51 WBC (4.5-11.0) K/mm3 Hgb (11.8-15.2) gm/dl Plt Count (140-440) K/mm3 Seg Neuts % (Manual) (40.0-70.0) % Lymphocytes % (Manual) (13.4-35.0) % Seg Neutrophils # Man (1.8-7.7) K/mm3 Lymphocytes # (Manual) (1.2-5.4) K/mm3 POC ABG pH (7.35-7.45) POC ABG pCO2 (35-45) POC ABG pO2 (80-105) Sodium (137-145) mmol/L Chloride (98-107) mmol/L Carbon Dioxide (22-30) mmol/L BUN (9-20) mg/dL Creatinine (0.8-1.5) mg/dL POC Glucose 109 H (70-105) Lactic Acid (0.7-2.0) mmol/L Calcium (8.4-10.2) mg/dL Lactate Dehydrogenase 338 H (91-180) units/L Total Creatine Kinase 404 H (55-170) units/L NT-Pro-B Natriuret Pep (0-450) pg/mL Urine WBC (Auto) (0.0-6.0) /HPF Urine Total Protein (5-11.8) mg/dL - Imaging and cardiology Chest x-ray: report reviewed, image reviewed (new b/l pulmonary infiltrates)
--- NOTE | 2018-03-10 17:39 | Event Note ---
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
[2018-03-10] MEDS ORDERED: NACL 0.9% 500 ML 500 ML ONE (18:35)
[2018-03-10 18:49] LABS: INR 1.34 (0.87-1.13)
[2018-03-10 18:50] LABS: INR 1.36 (0.87-1.13); Partial Thromboplastin Time 38.5 Sec. (24.2-36.6)
[2018-03-10] MEDS: ZOFRAN IV SCH ×2 (19:30→23:33)
[2018-03-10] MEDS ORDERED: LASIX IV STA (19:38)
[2018-03-10] MEDS ORDERED: ZOFRAN ONE (19:45)
[2018-03-10] MEDS ORDERED: LASIX ONE (19:45)
[2018-03-10] MEDS ORDERED: DECADRON ONE (19:57)
[2018-03-10] MEDS ORDERED: DECADRON 20 MG in NACL 0.9% 50 ML IV ONE (20:00)
[2018-03-11] MEDS: LEVOPHED DRIP 4 MG/NS 250 ML 4 MG/250 ML BAG IV SCH ×4 (02:39→17:15)
--- NOTE | 2018-03-11 04:13 | Consultation ---
REFERRED BY: Ti Costa MD REASON FOR CONSULTATION: Thrombocytopenia. HISTORY OF PRESENT ILLNESS: I saw the patient, a 33-year-old male, in the medical floor. The patient has HIV. He came to the hospital because of 2 days of fever, chills, nausea, vomiting. He had vomiting over 10 times for a few days. Urine output was also decreased. After admission, he was found to be acidotic, creatinine was elevated. At admission, chest x-ray was better and then today, chest x-ray had worsened. Platelet admission was 25K and now it is 8K. I have been asked to evaluate the patient. At this time, he is on BiPAP support. No headache. No chest pain. History of shortness of breath present. History of vomiting present. Weakness and chills present. REVIEW OF SYSTEMS: No hematemesis, no hematochezia, no hematuria. PAST MEDICAL HISTORY: Includes HIV. PAST SURGICAL HISTORY: Hemorrhoid surgery. SOCIAL HISTORY: History of marijuana and alcohol usage. FAMILY HISTORY: Father had CKD. ALLERGIES: TO CLINDAMYCIN. HOME MEDICATIONS: Not available. I discussed with IDT. The patient has been placed on cefepime. PHYSICAL EXAMINATION: VITAL SIGNS: Temperature 99.6, pulse 171, respirations 26, BP 98/67. HEENT: No pallor, no icterus. NECK: No neck lymph nodes. GENERAL: On BiPAP. HEART: S1, S2. LUNGS: Decreased air entry. ABDOMEN: Soft. EXTREMITIES: No pedal edema. NEUROLOGIC: Alert, awake. LABORATORY DATA: White cell 11, hemoglobin 11, MCV 87, platelet 8. INR 1.3, PTT 38. Fibrinogen 852. Potassium 4, creatinine 4.9. UA had crystals present. RADIOLOGY: Chest x-ray was done. ASSESSMENT: 1. Thrombocytopenia. I reviewed the peripheral smear. I spoke to the blood and plasma laboratory assistant. The laboratory report mentioned no schistocytes. When I reviewed the smear it did not have any schistocytes. Creatinine is elevated. The patient is short of breath. 2. At this time, differential includes some idiopathic thrombocytopenic purpura. Other differentials include immunosuppression related or medication or infection related. The patient's PT, PTT is elevated, but fibrinogen is not very high. At admission, chest x-ray was clear and now it has worsened. There is a clinical suspicion of this being infection or disseminated intravascular coagulation or acute respiratory distress syndrome. 3. Renal impairment. 4. Decreased urine output. 5. Shortness of breath. 6. Human immunodeficiency virus, was on treatment. 7. I discussed with IDT. 8. Will give steroid trial. 9. BNP was elevated. 10. I will order [id number]. 11. Abnormal liver function tests. 12. Being treated for Haemophilus influenzae. 13. CD4 count 400. I will follow the patient during inpatient stay. JOB# [id number] NM/NTS
[2018-03-11] MEDS: ZOFRAN IV SCH ×5 (04:31→21:17)
[2018-03-11 05:42] LABS: Hematocrit 32.5 % (35.5-45.6); Hemoglobin 10.9 gm/dl (11.8-15.2); Mean Corpuscular HGB Conc 33 % (32-34); Mean Corpuscular Volume 86 fl (84-94); Red Blood Count 3.77 M/mm3 (3.65-5.03); Red Cell Distribution Width 15.3 % (13.2-15.2)
[2018-03-11] MEDS: Vasostrict 20 UNIT in NACL 0.9% 100 ML IV SCH ×2 (05:44→16:24)
[2018-03-11 05:47] LABS: Platelet Count 17 K/mm3 (140-440)
[2018-03-11 05:54] LABS: Calcium 7.9 mg/dL (8.4-10.2)
[2018-03-11 07:01] LABS: Band Neutrophils # (Manual) 0.1 K/mm3; Total Cells Counted 100
[2018-03-11 07:02] LABS: Anisocytosis 1+; Basophils % (Manual) 0 % (0.0-1.8); Eosinophils % (Manual) 0 % (0.0-4.3)
[2018-03-11 07:03] LABS: Dohle Bodies 2+; Ovalocytes Few; Platelet Estimate Cons; Poikilocytosis 1+; Target Cells Few
--- NOTE | 2018-03-11 08:28 | Progress Note ---
Assessment and Plan Assessment and plan: Hypotension Admitted to ICU Started on Levophed after bolus iv fluid Continue Levophed and Vasopressin Acute respiratory failure due to pulmonary edema Stopped iv fluids lasix iv discussed with Pulm, Nephrology SCOTT Nephrology consulted and has evaluated Discussed with nephrology Improving Cr 2.9 today Sepsis Blood cultures growing Hemophylus haemolyticus Started iv Abx Now on Cefepime ID Physician following HIV infection. Diagnosed 6 yrs ago was on HAART but been off meds for 2 mths Thrombocytopenia Platelets was down to 8, now 17 after 2 Units Hyponatremia Hypoglycemia. started on D10 Coagulopathy, improved Lactic acidosis Metabolic acidosis, resolved Full code status History Interval history: Less shortness of breath No chest pain No fever Hospitalist Physical - Physical exam Narrative exam: GEN: Not in distress, now on Oxygen by NC HEENT: Normocephalic, atraumatic, Neck: supple, No JVD Lungs: Bilateral crackles, no rhonchi,no wheeze Heart:S1 and S2 regular, no murmurs, rubs or gallop, Abd:soft, non tender, non distended, normal bowel sounds Ext: No edema, no clubbing or cyanosis Neuro: AAO x 3, No focal signs - Constitutional Vitals: Temp Pulse Resp BP Pulse Ox 98.4 F 102 H 20 128/86 92 03/11/18 07:00 03/11/18 08:15 03/11/18 08:15 03/11/18 08:15 03/11/18 08:15 General appearance: Present: mild distress Results - Labs CBC & Chem 7: 03/11/18 04:50 03/11/18 04:50 Labs: Laboratory Last Values WBC 12.8 K/mm3 (4.5-11.0) H 03/11/18 04:50 RBC 3.77 M/mm3 (3.65-5.03) 03/11/18 04:50 Hgb 10.9 gm/dl (11.8-15.2) L 03/11/18 04:50 Hct 32.5 % (35.5-45.6) L 03/11/18 04:50 MCV 86 fl (84-94) 03/11/18 04:50 MCH 29 pg (28-32) 03/11/18 04:50 MCHC 33 % (32-34) 03/11/18 04:50 RDW 15.3 % (13.2-15.2) H 03/11/18 04:50 Plt Count 17 K/mm3 (140-440) L* D 03/11/18 04:50 Eos % (Auto) Parking Lot Attendant 03/09/18 07:00 Add Manual Diff Complete 03/11/18 04:50 Total Counted 100 03/11/18 04:50 Seg Neuts % (Manual) 96.0 % (40.0-70.0) H 03/11/18 04:50 Band Neutrophils % 1.0 % 03/11/18 04:50 Lymphocytes % (Manual) 2.0 % (13.4-35.0) L 03/11/18 04:50 Reactive Lymphs % (Man) 0 % 03/11/18 04:50 Monocytes % (Manual) 1.0 % (0.0-7.3) 03/11/18 04:50 Eosinophils % (Manual) 0 % (0.0-4.3) 03/11/18 04:50 Basophils % (Manual) 0 % (0.0-1.8) 03/11/18 04:50 Metamyelocytes % 0 % 03/11/18 04:50 Myelocytes % 0 % 03/11/18 04:50 Promyelocytes % 0 % 03/11/18 04:50 Blast Cells % 0 % 03/11/18 04:50 Nucleated RBC % Not Reportable 03/11/18 04:50 Seg Neutrophils # Man 12.3 K/mm3 (1.8-7.7) H 03/11/18 04:50 Band Neutrophils # 0.1 K/mm3 03/11/18 04:50 Lymphocytes # (Manual) 0.3 K/mm3 (1.2-5.4) L 03/11/18 04:50 Abs React Lymphs (Man) 0.0 K/mm3 03/11/18 04:50 Monocytes # (Manual) 0.1 K/mm3 (0.0-0.8) 03/11/18 04:50 Eosinophils # (Manual) 0.0 K/mm3 (0.0-0.4) 03/11/18 04:50 Basophils # (Manual) 0.0 K/mm3 (0.0-0.1) 03/11/18 04:50 Metamyelocytes # 0.0 K/mm3 03/11/18 04:50 Myelocytes # 0.0 K/mm3 03/11/18 04:50 Promyelocytes # 0.0 K/mm3 03/11/18 04:50 Blast Cells # 0.0 K/mm3 03/11/18 04:50 WBC Morphology Not Reportable 03/11/18 04:50 Hypersegmented Neuts Not Reportable 03/11/18 04:50 Hyposegmented Neuts Not Reportable 03/11/18 04:50 Hypogranular Neuts Not Reportable 03/11/18 04:50 Smudge Cells Not Reportable 03/11/18 04:50 Toxic Granulation Not Reportable 03/11/18 04:50 Toxic Vacuolation Not Reportable 03/11/18 04:50 Dohle Bodies 2+ 03/11/18 04:50 Pelger-Huet Anomaly Not Reportable 03/11/18 04:50 Kamar Rods Not Reportable 03/11/18 04:50 Platelet Estimate Cons 03/11/18 04:50 Clumped Platelets Not Reportable 03/11/18 04:50 Plt Clumps, EDTA Not Reportable 03/11/18 04:50 Large Platelets Not Reportable 03/11/18 04:50 Giant Platelets Not Reportable 03/11/18 04:50 Platelet Satelliting Not Reportable 03/11/18 04:50 Plt Morphology Comment Not Reportable 03/11/18 04:50 RBC Morphology Not Reportable 03/11/18 04:50 Dimorphic RBCs Not Reportable 03/11/18 04:50 Polychromasia Not Reportable 03/11/18 04:50 Hypochromasia Not Reportable 03/11/18 04:50 Poikilocytosis 1+ 03/11/18 04:50 Anisocytosis 1+ 03/11/18 04:50 Microcytosis Not Reportable 03/11/18 04:50 Macrocytosis Not Reportable 03/11/18 04:50 Spherocytes Not Reportable 03/11/18 04:50 Pappenheimer Bodies Not Reportable 03/11/18 04:50 Sickle Cells Not Reportable 03/11/18 04:50 Target Cells Few 03/11/18 04:50 Tear Drop Cells Not Reportable 03/11/18 04:50 Ovalocytes Few 03/11/18 04:50 Helmet Cells Not Reportable 03/11/18 04:50 Barnes-Pioche Bodies Not Reportable 03/11/18 04:50 [place] Rings Not Reportable 03/11/18 04:50 Lyssa Cells Not Reportable 03/11/18 04:50 Bite Cells Not Reportable 03/11/18 04:50 Crenated Cell Not Reportable 03/11/18 04:50 Elliptocytes Not Reportable 03/11/18 04:50 Acanthocytes (Spur) Not Reportable 03/11/18 04:50 Rouleaux Not Reportable 03/11/18 04:50 Hemoglobin C Crystals Not Reportable 03/11/18 04:50 Schistocytes Not Reportable 03/11/18 04:50 Malaria parasites Not Reportable 03/11/18 04:50 Jose Bodies Not Reportable 03/11/18 04:50 Hem Pathologist Commnt No 03/11/18 04:50 PT 17.2 Sec. (12.2-14.9) H 03/10/18 18:15 INR 1.36 (0.87-1.13) H 03/10/18 18:15 APTT 38.5 Sec. (24.2-36.6) H 03/10/18 18:15 Fibrinogen 852 mg/dl (211-480) H 03/10/18 18:15 POC ABG pH 7.356 (7.35-7.45) 03/11/18 05:33 POC ABG pCO2 41.9 (35-45) 03/11/18 05:33 POC ABG pO2 58 (80-105) L 03/11/18 05:33 POC ABG HCO3 23.5 03/11/18 05:33 POC ABG Total CO2 25 03/11/18 05:33 POC ABG O2 Sat 89 03/11/18 05:33 POC ABG Base Excess -2 03/11/18 05:33 VBG pH 7.297 (7.320-7.420) L 03/09/18 07:00 FiO2 80 % 03/11/18 05:33 Sodium 137 mmol/L (137-145) 03/11/18 04:50 Potassium 4.1 mmol/L (3.6-5.0) 03/11/18 04:50 Chloride 94.2 mmol/L (98-107) L 03/11/18 04:50 Carbon Dioxide 25 mmol/L (22-30) 03/11/18 04:50 Anion Gap 22 mmol/L 03/11/18 04:50 BUN 62 mg/dL (9-20) H 03/11/18 04:50 Creatinine 2.7 mg/dL (0.8-1.5) H 03/11/18 04:50 Estimated GFR 33 ml/min 03/11/18 04:50 BUN/Creatinine Ratio 23 % 03/11/18 04:50 Glucose 191 mg/dL (75-100) H 03/11/18 04:50 POC Glucose 151 (70-105) H 03/11/18 07:47 Lactic Acid 4.10 mmol/L (0.7-2.0) H* 03/10/18 01:00 Calcium 7.9 mg/dL (8.4-10.2) L D 03/11/18 04:50 Phosphorus 3.50 mg/dL (2.5-4.5) 03/11/18 04:50 Magnesium 2.00 mg/dL (1.7-2.3) 03/11/18 04:50 Total Bilirubin 1.10 mg/dL (0.1-1.2) 03/09/18 07:00 AST 32 units/L (5-40) 03/09/18 07:00 ALT 28 units/L (7-56) 03/09/18 07:00 Alkaline Phosphatase 154 units/L (35-129) H 03/09/18 07:00 Lactate Dehydrogenase 338 units/L (91-180) H 03/10/18 11:16 Total Creatine Kinase 404 units/L (55-170) H 03/10/18 11:16 NT-Pro-B Natriuret Pep 21131 pg/mL (0-450) H 03/10/18 11:16 Total Protein 7.4 g/dL (6.3-8.2) 03/09/18 07:00 Albumin 3.6 g/dL (3.9-5) L 03/09/18 07:00 Albumin/Globulin Ratio 0.9 % 03/09/18 07:00 Urine Color Red (Yellow) 03/10/18 06:00 Urine Turbidity Cloudy (Clear) 03/10/18 06:00 Urine pH 5.0 (5.0-7.0) 03/10/18 06:00 Ur Specific [place] 1.009 (1.003-1.030) 03/10/18 06:00 Urine Protein 100 mg/dl mg/dL (Negative) 03/10/18 06:00 Urine Glucose (UA) Neg mg/dL (Negative) 03/10/18 06:00 Urine Ketones Neg mg/dL (Negative) 03/10/18 06:00 Urine Blood Lg (Negative) 03/10/18 06:00 Urine Nitrite Neg (Negative) 03/10/18 06:00 Urine Bilirubin Neg (Negative) 03/10/18 06:00 Urine Urobilinogen < 2.0 mg/dL (<2.0) 03/10/18 06:00 Ur Leukocyte Esterase Neg (Negative) 03/10/18 06:00 Urine WBC (Auto) 32.0 /HPF (0.0-6.0) H 03/10/18 06:00 Urine RBC (Auto) > 182.0 /HPF (0.0-6.0) 03/10/18 06:00 U Epithel Cells (Auto) 5.0 /HPF (0-13.0) 03/09/18 14:39 Urine Bacteria (Auto) 2+ /HPF (Negative) 03/10/18 06:00 Urine WBC Clumps Few /HPF 03/09/18 14:39 Amorphous Crystals 3+ 03/10/18 06:00 Granular Casts 29 /LPF 03/10/18 06:00 Urine Creatinine 210.7 mg/dL (0.1-20.0) H 03/09/18 14:39 Protein/Creatinin Ratio 3.89 03/09/18 14:39 Urine Sodium 36 mmol/L 03/09/18 14:39 Urine Total Protein 820 mg/dL (5-11.8) H 03/09/18 14:39 Hepatitis A IgM Ab Non-reactive (NonReactive) 03/09/18 20:39 Hep Bs Antigen Non-reactive (Negative) 03/09/18 20:39 Hep B Core IgM Ab Non-reactive (NonReactive) 03/09/18 20:39 Hepatitis C Antibody Non-reactive (NonReactive) 03/09/18 20:39 HIV 1&2 Antibody Rapid Reactive (Non React) 03/09/18 20:39 HIV P24 Antigen Non react (Non React) 03/09/18 20:39 Influenza A (Rapid) Negative (Negative) 03/09/18 Unknown Influenza B (Rapid) Negative (Negative) 03/09/18 Unknown Schistocytes Smear Rare 03/10/18 11:16 Blood Type O POSITIVE 03/09/18 12:36 Antibody Screen Negative 03/09/18 12:36
[2018-03-11] MEDS ORDERED: PROVENTIL IH ONE ×3 (08:39→12:11)
[2018-03-11] MEDS: PROTONIX IV SCH (09:42)
[2018-03-11] MEDS: SODIUM CHLORIDE FLUSH SYRINGE 10 ML IV SCH (09:42)
[2018-03-11] MEDS ORDERED: LASIX IV ONE ×2 (09:43→20:00)
[2018-03-11] MEDS: MORPHINE IV PRN ×3 (09:49→21:23)
[2018-03-11] MEDS: MAXIPIME/NS 2 GM/100 ML 2 GM/100 ML BAG IV SCH (09:59)
--- NOTE | 2018-03-11 10:16 | Progress Note ---
Assessment and Plan Cultures: 03/09/2018 blood culture: Hemophilus hemolyticus in both sets 03/09/2018 influenza rapid: Negative A/P: 33/M with no medical history, admitted with: 1) Septic shock requiring pressors: F/U acute hepatitis panel, C3, C4, FELICIA and ANCA panel. 2) Acute respiratory failure: on BiPAP. Initial CXR not suggestive of pneumonia, low suspicion for PJP pneumonia. 3) Haemophilus hemolyticus bacteremia: source unclear ?lung. Initial CXR not suggestive of pneumonia. Continue Cefepime for now. 4) HIV positive: Apparently he has been HIV positive, used to be on meds - Genvoya but stopped taking it 6 months ago, states his last CD4 count was 400+. 5) Acute renal failure, severe thrombocytopenia, schistocytes +, coagulopathy: TTP v/s DIC. Nephrology following. Hematology consulted. d/w Dr. Lewis. UA showed 86 WBCs and significant hematuria. renally dose abx. Recs: - continue Cefepime, renally adjusted - F/u CD4 count - Acute renal failure, severe thrombocytopenia, schistocytes +: TTP v/s DIC. Nephrology following. Hematology consult pending. - critically ill. Guarded prognosis Dr. Vasquez will be taking call from home on Wednesday, , and making rounds in the hospital on Wednesday. [facility] M: [phone] O:[phone] Subjective Date of service: 03/11/18 Principal diagnosis: acute renal failure Interval history: Patient seen and examined. On Bipap, acute distress observed. Still on Levophed Gtt. Family member at bedside. Objective - Exam Narrative Exam: Constitutional: Alert, cooperative. resp distress, on BiPAP Head, Ears, Nose: Normocephalic, atraumatic. External ears, nose normal Eyes: Conjunctivae/corneas clear. No icterus. No ptosis. Neck: Supple, no meningeal signs Oral: on BiPAP Cardiovascular: S1, S2 normal. Respiratory: Good air entry, clear to auscultation bilaterally GI: Mild diffuse tenderness; bowel sounds normal. No peritoneal signs Musculoskeletal: No pedal edema, no cyanosis. Skin: No rash or abscess Hem/Lymphatic: No palpable cervical or supraclavicular nodes. No lymphangitis Psych: Mood ok. Affect normal Neurological: Awake, alert, oriented. No gross abnormality - Constitutional Vitals: Vital Signs Temp Pulse Resp BP Pulse Ox 98.4 F 102 H 20 128/86 92 03/11/18 07:00 03/11/18 08:15 03/11/18 08:15 03/11/18 08:15 03/11/18 08:15 Temperature -Last 24 Hours Temperature 98.4 F Temperature 99.6 F Temperature 98.8 F Temperature 98.8 F Temperature 99.7 F Temperature 99 F Temperature 99 F Temperature 99.6 F Temperature 99.6 F Temperature 99.9 F Temperature 99.3 F Temperature 98 F - Labs CBC & Chem 7: 03/11/18 14:48 03/11/18 04:50 Labs: Abnormal lab results 03/10/18 03/10/18 03/10/18 Range/Units 09:14 11:16 11:16 WBC (4.5-11.0) K/mm3 Hgb (11.8-15.2) gm/dl Hct (35.5-45.6) % RDW (13.2-15.2) % Plt Count (140-440) K/mm3 Seg Neuts % (Manual) (40.0-70.0) % Lymphocytes % (Manual) (13.4-35.0) % Seg Neutrophils # Man (1.8-7.7) K/mm3 Lymphocytes # (Manual) (1.2-5.4) K/mm3 PT (12.2-14.9) Sec. INR (0.87-1.13) APTT (24.2-36.6) Sec. Fibrinogen (211-480) mg/dl POC ABG pH 7.266 L (7.35-7.45) POC ABG pO2 (80-105) Chloride (98-107) mmol/L BUN (9-20) mg/dL Creatinine (0.8-1.5) mg/dL Glucose (75-100) mg/dL POC Glucose (70-105) Calcium (8.4-10.2) mg/dL Lactate Dehydrogenase 338 H (91-180) units/L Total Creatine Kinase 404 H (55-170) units/L NT-Pro-B Natriuret Pep 35115 H (0-450) pg/mL 03/10/18 03/10/18 03/10/18 Range/Units 11:51 18:15 18:15 WBC (4.5-11.0) K/mm3 Hgb (11.8-15.2) gm/dl Hct (35.5-45.6) % RDW (13.2-15.2) % Plt Count (140-440) K/mm3 Seg Neuts % (Manual) (40.0-70.0) % Lymphocytes % (Manual) (13.4-35.0) % Seg Neutrophils # Man (1.8-7.7) K/mm3 Lymphocytes # (Manual) (1.2-5.4) K/mm3 PT 17.2 H 17.0 H (12.2-14.9) Sec. INR 1.36 H 1.34 H (0.87-1.13) APTT 38.5 H (24.2-36.6) Sec. Fibrinogen 852 H (211-480) mg/dl POC ABG pH (7.35-7.45) POC ABG pO2 (80-105) Chloride (98-107) mmol/L BUN (9-20) mg/dL Creatinine (0.8-1.5) mg/dL Glucose (75-100) mg/dL POC Glucose 109 H (70-105) Calcium (8.4-10.2) mg/dL Lactate Dehydrogenase (91-180) units/L Total Creatine Kinase (55-170) units/L NT-Pro-B Natriuret Pep (0-450) pg/mL 03/10/18 03/10/18 03/10/18 Range/Units 19:45 20:40 22:07 WBC (4.5-11.0) K/mm3 Hgb (11.8-15.2) gm/dl Hct (35.5-45.6) % RDW (13.2-15.2) % Plt Count (140-440) K/mm3 Seg Neuts % (Manual) (40.0-70.0) % Lymphocytes % (Manual) (13.4-35.0) % Seg Neutrophils # Man (1.8-7.7) K/mm3 Lymphocytes # (Manual) (1.2-5.4) K/mm3 PT (12.2-14.9) Sec. INR (0.87-1.13) APTT (24.2-36.6) Sec. Fibrinogen (211-480) mg/dl POC ABG pH (7.35-7.45) POC ABG pO2 (80-105) Chloride (98-107) mmol/L BUN (9-20) mg/dL Creatinine (0.8-1.5) mg/dL Glucose (75-100) mg/dL POC Glucose 136 H 135 H 135 H (70-105) Calcium (8.4-10.2) mg/dL Lactate Dehydrogenase (91-180) units/L Total Creatine Kinase (55-170) units/L NT-Pro-B Natriuret Pep (0-450) pg/mL 03/10/18 03/11/18 03/11/18 Range/Units 23:06 00:07 02:01 WBC (4.5-11.0) K/mm3 Hgb (11.8-15.2) gm/dl Hct (35.5-45.6) % RDW (13.2-15.2) % Plt Count (140-440) K/mm3 Seg Neuts % (Manual) (40.0-70.0) % Lymphocytes % (Manual) (13.4-35.0) % Seg Neutrophils # Man (1.8-7.7) K/mm3 Lymphocytes # (Manual) (1.2-5.4) K/mm3 PT (12.2-14.9) Sec. INR (0.87-1.13) APTT (24.2-36.6) Sec. Fibrinogen (211-480) mg/dl POC ABG pH (7.35-7.45) POC ABG pO2 (80-105) Chloride (98-107) mmol/L BUN (9-20) mg/dL Creatinine (0.8-1.5) mg/dL Glucose (75-100) mg/dL POC Glucose 133 H 148 H 161 H (70-105) Calcium (8.4-10.2) mg/dL Lactate Dehydrogenase (91-180) units/L Total Creatine Kinase (55-170) units/L NT-Pro-B Natriuret Pep (0-450) pg/mL 03/11/18 03/11/18 03/11/18 Range/Units 03:10 04:12 04:50 WBC 12.8 H (4.5-11.0) K/mm3 Hgb 10.9 L (11.8-15.2) gm/dl Hct 32.5 L (35.5-45.6) % RDW 15.3 H (13.2-15.2) % Plt Count 17 L* D (140-440) K/mm3 Seg Neuts % (Manual) 96.0 H (40.0-70.0) % Lymphocytes % (Manual) 2.0 L (13.4-35.0) % Seg Neutrophils # Man 12.3 H (1.8-7.7) K/mm3 Lymphocytes # (Manual) 0.3 L (1.2-5.4) K/mm3 PT (12.2-14.9) Sec. INR (0.87-1.13) APTT (24.2-36.6) Sec. Fibrinogen (211-480) mg/dl POC ABG pH (7.35-7.45) POC ABG pO2 (80-105) Chloride (98-107) mmol/L BUN (9-20) mg/dL Creatinine (0.8-1.5) mg/dL Glucose (75-100) mg/dL POC Glucose 189 H 188 H (70-105) Calcium (8.4-10.2) mg/dL Lactate Dehydrogenase (91-180) units/L Total Creatine Kinase (55-170) units/L NT-Pro-B Natriuret Pep (0-450) pg/mL 03/11/18 03/11/18 03/11/18 Range/Units 04:50 05:30 05:33 WBC (4.5-11.0) K/mm3 Hgb (11.8-15.2) gm/dl Hct (35.5-45.6) % RDW (13.2-15.2) % Plt Count (140-440) K/mm3 Seg Neuts % (Manual) (40.0-70.0) % Lymphocytes % (Manual) (13.4-35.0) % Seg Neutrophils # Man (1.8-7.7) K/mm3 Lymphocytes # (Manual) (1.2-5.4) K/mm3 PT (12.2-14.9) Sec. INR (0.87-1.13) APTT (24.2-36.6) Sec. Fibrinogen (211-480) mg/dl POC ABG pH (7.35-7.45) POC ABG pO2 58 L (80-105) Chloride 94.2 L (98-107) mmol/L BUN 62 H (9-20) mg/dL Creatinine 2.7 H (0.8-1.5) mg/dL Glucose 191 H (75-100) mg/dL POC Glucose 187 H (70-105) Calcium 7.9 L D (8.4-10.2) mg/dL Lactate Dehydrogenase (91-180) units/L Total Creatine Kinase (55-170) units/L NT-Pro-B Natriuret Pep (0-450) pg/mL 03/11/18 Range/Units 07:47 WBC (4.5-11.0) K/mm3 Hgb (11.8-15.2) gm/dl Hct (35.5-45.6) % RDW (13.2-15.2) % Plt Count (140-440) K/mm3 Seg Neuts % (Manual) (40.0-70.0) % Lymphocytes % (Manual) (13.4-35.0) % Seg Neutrophils # Man (1.8-7.7) K/mm3 Lymphocytes # (Manual) (1.2-5.4) K/mm3 PT (12.2-14.9) Sec. INR (0.87-1.13) APTT (24.2-36.6) Sec. Fibrinogen (211-480) mg/dl POC ABG pH (7.35-7.45) POC ABG pO2 (80-105) Chloride (98-107) mmol/L BUN (9-20) mg/dL Creatinine (0.8-1.5) mg/dL Glucose (75-100) mg/dL POC Glucose 151 H (70-105) Calcium (8.4-10.2) mg/dL Lactate Dehydrogenase (91-180) units/L Total Creatine Kinase (55-170) units/L NT-Pro-B Natriuret Pep (0-450) pg/mL
--- NOTE | 2018-03-11 10:29 | XRay Report ---
CHEST XRAY, 2 VIEWS: History: Hypoxemia. Findings: Diffuse bilateral infiltrates have increased slightly since yesterday's exam. I suspect this represents pulmonary edema although infectious infiltrates could be considered. No pleural effusion or pneumothorax is identified. Heart size is borderline. IMPRESSION: Mild increase in the bilateral pulmonary edema or infiltrates since yesterday's exam. Borderline heart size.
--- NOTE | 2018-03-11 11:16 | Progress Note ---
Assessment and Plan acute renal failure, prerenal azotemia vs. ischemic ATN from hypotension lactic acidosis nausea and vomiting, likely gastroenteritis hypocalcemia - Cr is trending down with good UOP, no indication for [employer] - discussed with Dr Lewis, lasix can be given as needed for pulm edema - he has active urine sediment, possibly from HIV+ or TTP, DIC, will check vascultitis work up, hematology consult is pending - renal US ordered, negative hydronephrosis - renally dose meds - strict I&O, discussed with RN - daily weight thank you for allowing to participate in Mr Liu's care. Joseph Stratton MD cell [phone] Subjective Date of service: 03/11/18 Principal diagnosis: acute renal failure Interval history: remains to feel weak with SOB but improving Objective - Vital Signs Vital signs: Vital Signs - 12hr 03/10/18 03/10/18 03/10/18 23:16 23:22 23:30 Temperature Pulse Rate 143 H 148 H 146 H Pulse Rate [ From Monitor] Respiratory 48 H 52 H 42 H Rate Blood Pressure 97/46 97/46 93/57 O2 Sat by Pulse 95 96 95 Oximetry 03/10/18 03/10/18 03/11/18 23:46 23:57 00:00 Temperature 99.7 F H Pulse Rate 148 H 155 H Pulse Rate [ From Monitor] Respiratory 27 H 28 H Rate Blood Pressure 113/69 93/57 O2 Sat by Pulse 96 98 95 Oximetry 03/11/18 03/11/18 03/11/18 00:16 00:30 00:46 Temperature Pulse Rate 145 H 144 H 146 H Pulse Rate [ From Monitor] Respiratory 42 H 41 H 33 H Rate Blood Pressure 98/59 94/65 106/73 O2 Sat by Pulse 93 95 93 Oximetry 03/11/18 03/11/18 03/11/18 00:50 01:00 01:15 Temperature 98.8 F Pulse Rate 141 H 154 H 146 H Pulse Rate [ From Monitor] Respiratory 30 H 46 H 21 Rate Blood Pressure 116/65 112/66 100/75 O2 Sat by Pulse 99 97 96 Oximetry 03/11/18 03/11/18 03/11/18 01:30 01:45 02:00 Temperature Pulse Rate 156 H 147 H 135 H Pulse Rate [ From Monitor] Respiratory 45 H 55 H 47 H Rate Blood Pressure 89/64 94/70 95/68 O2 Sat by Pulse 98 98 96 Oximetry 03/11/18 03/11/18 03/11/18 02:16 02:30 02:40 Temperature Pulse Rate 141 H 147 H 125 H Pulse Rate [ From Monitor] Respiratory 48 H 38 H 50 H Rate Blood Pressure 93/70 93/70 116/74 O2 Sat by Pulse 94 97 Oximetry 03/11/18 03/11/18 03/11/18 02:50 03:00 03:10 Temperature Pulse Rate 141 H 159 H 105 H Pulse Rate [ From Monitor] Respiratory 47 H 33 H 16 Rate Blood Pressure 118/72 118/72 118/72 O2 Sat by Pulse 93 90 91 Oximetry 03/11/18 03/11/18 03/11/18 03:20 03:30 03:31 Temperature 98.8 F Pulse Rate 103 H 97 H 141 H Pulse Rate [ From Monitor] Respiratory 49 H 46 H 30 H Rate Blood Pressure 119/73 119/84 116/65 O2 Sat by Pulse 92 93 99 Oximetry 03/11/18 03/11/18 03/11/18 03:46 04:00 04:15 Temperature 99.6 F Pulse Rate 104 H 104 H 101 H Pulse Rate [ From Monitor] Respiratory 28 H 20 41 H Rate Blood Pressure 123/79 109/69 109/69 O2 Sat by Pulse 91 98 98 Oximetry 03/11/18 03/11/18 03/11/18 04:30 04:45 05:00 Temperature Pulse Rate 98 H 99 H 96 H Pulse Rate [ From Monitor] Respiratory 41 H 51 H 52 H Rate Blood Pressure 96/60 107/78 110/73 O2 Sat by Pulse 96 89 94 Oximetry 03/11/18 03/11/18 03/11/18 05:15 05:30 05:45 Temperature Pulse Rate 105 H 99 H 100 H Pulse Rate [ From Monitor] Respiratory 47 H 46 H 42 H Rate Blood Pressure 119/70 102/67 95/59 O2 Sat by Pulse 91 94 95 Oximetry 03/11/18 03/11/18 03/11/18 06:00 06:30 06:45 Temperature Pulse Rate 101 H 110 H 102 H Pulse Rate [ From Monitor] Respiratory 54 H 27 H Rate Blood Pressure 103/68 109/74 114/72 O2 Sat by Pulse 93 93 Oximetry 03/11/18 03/11/18 03/11/18 07:00 07:15 07:28 Temperature 98.4 F Pulse Rate 103 H 99 H Pulse Rate [ From Monitor] Respiratory 24 43 H Rate Blood Pressure 118/82 107/68 O2 Sat by Pulse 97 97 93 Oximetry 03/11/18 03/11/18 03/11/18 07:30 07:45 08:00 Temperature Pulse Rate 105 H 98 H 98 H Pulse Rate [ 101 H From Monitor] Respiratory 48 H 48 H 55 H Rate Blood Pressure 103/75 110/74 118/86 O2 Sat by Pulse 94 94 94 Oximetry 03/11/18 08:15 Temperature Pulse Rate 102 H Pulse Rate [ From Monitor] Respiratory 20 Rate Blood Pressure 128/86 O2 Sat by Pulse 92 Oximetry - General Appearance General appearance: well-developed, well-nourished EENT: ATNC, PERRL, mucous membranes dry Neck: no JVD, no carotid bruit Respiratory: Present: Rales, Decreased Breath Sounds Cardiology: tachycardia, S1S2 Gastrointestinal: normoactive bowel sounds, no tenderness, no distended Integumentary: no rash, warm and dry Neurologic: no focal deficit, no asterixis Musculoskeletal: other (no edema in BLE) Psychiatric: cooperative - Lab 03/11/18 04:50 03/11/18 04:50 Most recent lab results Calcium 7.9 mg/dL (8.4-10.2) L D 03/11/18 04:50 Phosphorus 3.50 mg/dL (2.5-4.5) 03/11/18 04:50 Magnesium 2.00 mg/dL (1.7-2.3) 03/11/18 04:50 Urine Creatinine 210.7 mg/dL (0.1-20.0) H 03/09/18 14:39 Urine Sodium 36 mmol/L 03/09/18 14:39 Urine Total Protein 820 mg/dL (5-11.8) H 03/09/18 14:39 Medications & Allergies - Medications Allergies/Adverse Reactions: Allergies clindamycin Allergy (Verified 03/09/18 06:43) Swelling Home Medications: Home Medications Medication Instructions Recorded Confirmed Last Taken Type No Known Home Medications [No 03/09/18 03/09/18 Unknown History Reported Home Medications] Active Medications: Generic Name Dose Route Start Last Admin Trade Name Freq PRN Reason Stop Dose Admin Dextrose 50 ml 03/09/18 16:15 D50w (25gm) Syringe IV PRN PRN HYPOGLYCEMIA Furosemide 40 mg 03/11/18 09:43 03/11/18 10:13 Lasix IV 03/11/18 09:44 40 mg ONCE ONE Administration Norepinephrine 4 mg in 250 mls @ 7.5 mls/hr 03/09/18 23:45 03/11/18 09:43 Levophed Drip 4 Mg/Ns 250 Ml IV 18 mcg/min TITR LIU 67.5 mls/hr Administration Protocol 2 MCG/MIN Vasopressin 20 unit/ Sodium 101 mls @ 9.09 mls/hr 03/10/18 11:00 03/11/18 06:03 Chloride IV 0.03 units/min TITR LIU 9.09 mls/hr Titration Protocol 0.03 UNITS/MIN Cefepime HCl 2 gm in 100 mls @ 200 mls/hr 03/10/18 11:00 03/11/18 09:59 Maxipime/Ns 2 Gm/100 Ml IV 200 mls/hr Q24HR LIU Administration Dextrose 1,000 mls @ 42 mls/hr 03/10/18 11:00 03/10/18 11:34 D10w IV 42 mls/hr DIRECT LIU Administration Dexamethasone 20 mg/ Sodium 55 mls @ 100 mls/hr 03/11/18 11:00 Chloride IV Q12HR LIU Morphine Sulfate 2 mg 03/09/18 10:41 03/11/18 09:49 Morphine IV 2 mg Q4H PRN Administration Pain, Moderate (4-6) Ondansetron HCl 4 mg 03/10/18 19:30 03/11/18 09:42 Zofran IV 4 mg Q4H LIU Administration Pantoprazole Sodium 40 mg 03/09/18 13:00 03/11/18 09:42 Protonix IV 40 mg QDAY LIU Administration Sodium Chloride 10 ml 03/09/18 22:00 03/11/18 09:42 Sodium Chloride Flush Syringe 10 Ml IV 10 ml BID LIU Administration Sodium Chloride 10 ml 03/09/18 10:41 Sodium Chloride Flush Syringe 10 Ml IV PRN PRN LINE FLUSH
[2018-03-11] MEDS ORDERED: VANCOMYCIN 1,750 MG in NACL 0.9% 500 ML 500 ML IV SCH (12:00)
[2018-03-11] MEDS: DECADRON 20 MG in NACL 0.9% 50 ML IV SCH (12:06)
[2018-03-11] MEDS ORDERED: PROVENTIL IH NR (12:15)
--- NOTE | 2018-03-11 12:17 | Progress Note ---
Assessment and Plan 33 y/o male with thrombocytopenia, renal failure, and hypotension. 1. Positive HIV status. Has been noncompliant with therapy. Also with GNR in blood 2/4 bottles. ID has already been consulted but will escalate care by adding cefepime therapy and stopping rocephin. Hold on anti-retroviral therapy at this point. Mother does not know HIV status. Appreciate ID help and will allow them to drive abx course from here. 2. Pulmonary-acute pulmonary edema. Improving clinically. CXR is unchanged. BNP was 70,000 3. Renal- Cr improved actually with lasix therapy and has good urine output. Gave again this am. Will likely give an additional dose after his platelet therapy. 4. Heme-severe thrombocyoptenia. At risk for spontaneous bleed. Spoke with IMS and platelets have been ordered. Goal is to get at least above 20k, greater than 50 if needs a procedure. 5. Continue NPO status. Ok with GI prophy and SCD's. Must keep current central line secondary to platelets 6. Overall prognosis is guarded to poor. CCT 31 minutes Subjective Date of service: 03/11/18 Principal diagnosis: acute renal failure Interval history: had to be switched to HFNC last night as he had emesis. Tolerating so far. Repeat CXR today is essentially unchanged but clinically he is better. Work of breathing is less. Responded well to lasix. ID following as well and appreciate recs. Objective Vital Signs - 12hr 03/11/18 03/11/18 03/11/18 00:16 00:30 00:46 Temperature Pulse Rate 145 H 144 H 146 H Pulse Rate [ From Monitor] Respiratory 42 H 41 H 33 H Rate Blood Pressure 98/59 94/65 106/73 O2 Sat by Pulse 93 95 93 Oximetry 03/11/18 03/11/18 03/11/18 00:50 01:00 01:15 Temperature 98.8 F Pulse Rate 141 H 154 H 146 H Pulse Rate [ From Monitor] Respiratory 30 H 46 H 21 Rate Blood Pressure 116/65 112/66 100/75 O2 Sat by Pulse 99 97 96 Oximetry 03/11/18 03/11/18 03/11/18 01:30 01:45 02:00 Temperature Pulse Rate 156 H 147 H 135 H Pulse Rate [ From Monitor] Respiratory 45 H 55 H 47 H Rate Blood Pressure 89/64 94/70 95/68 O2 Sat by Pulse 98 98 96 Oximetry 03/11/18 03/11/18 03/11/18 02:16 02:30 02:40 Temperature Pulse Rate 141 H 147 H 125 H Pulse Rate [ From Monitor] Respiratory 48 H 38 H 50 H Rate Blood Pressure 93/70 93/70 116/74 O2 Sat by Pulse 94 97 Oximetry 03/11/18 03/11/18 03/11/18 02:50 03:00 03:10 Temperature Pulse Rate 141 H 159 H 105 H Pulse Rate [ From Monitor] Respiratory 47 H 33 H 16 Rate Blood Pressure 118/72 118/72 118/72 O2 Sat by Pulse 93 90 91 Oximetry 03/11/18 03/11/18 03/11/18 03:20 03:30 03:31 Temperature 98.8 F Pulse Rate 103 H 97 H 141 H Pulse Rate [ From Monitor] Respiratory 49 H 46 H 30 H Rate Blood Pressure 119/73 119/84 116/65 O2 Sat by Pulse 92 93 99 Oximetry 03/11/18 03/11/18 03/11/18 03:46 04:00 04:15 Temperature 99.6 F Pulse Rate 104 H 104 H 101 H Pulse Rate [ From Monitor] Respiratory 28 H 20 41 H Rate Blood Pressure 123/79 109/69 109/69 O2 Sat by Pulse 91 98 98 Oximetry 03/11/18 03/11/18 03/11/18 04:30 04:45 05:00 Temperature Pulse Rate 98 H 99 H 96 H Pulse Rate [ From Monitor] Respiratory 41 H 51 H 52 H Rate Blood Pressure 96/60 107/78 110/73 O2 Sat by Pulse 96 89 94 Oximetry 03/11/18 03/11/18 03/11/18 05:15 05:30 05:45 Temperature Pulse Rate 105 H 99 H 100 H Pulse Rate [ From Monitor] Respiratory 47 H 46 H 42 H Rate Blood Pressure 119/70 102/67 95/59 O2 Sat by Pulse 91 94 95 Oximetry 03/11/18 03/11/18 03/11/18 06:00 06:30 06:45 Temperature Pulse Rate 101 H 110 H 102 H Pulse Rate [ From Monitor] Respiratory 54 H 27 H Rate Blood Pressure 103/68 109/74 114/72 O2 Sat by Pulse 93 93 Oximetry 03/11/18 03/11/18 03/11/18 07:00 07:15 07:28 Temperature 98.4 F Pulse Rate 103 H 99 H Pulse Rate [ From Monitor] Respiratory 24 43 H Rate Blood Pressure 118/82 107/68 O2 Sat by Pulse 97 97 93 Oximetry 03/11/18 03/11/18 03/11/18 07:30 07:45 08:00 Temperature Pulse Rate 105 H 98 H 98 H Pulse Rate [ 101 H From Monitor] Respiratory 48 H 48 H 55 H Rate Blood Pressure 103/75 110/74 118/86 O2 Sat by Pulse 94 94 94 Oximetry 03/11/18 03/11/18 03/11/18 08:15 08:30 08:45 Temperature Pulse Rate 102 H 103 H 97 H Pulse Rate [ From Monitor] Respiratory 20 42 H 37 H Rate Blood Pressure 128/86 124/93 117/82 O2 Sat by Pulse 92 93 Oximetry 03/11/18 03/11/18 03/11/18 09:00 09:15 09:30 Temperature Pulse Rate 97 H 103 H 104 H Pulse Rate [ From Monitor] Respiratory 55 H 28 H 54 H Rate Blood Pressure 116/84 115/81 115/82 O2 Sat by Pulse 91 89 95 Oximetry 03/11/18 03/11/18 03/11/18 09:46 10:00 10:15 Temperature Pulse Rate 105 H 93 H 98 H Pulse Rate [ From Monitor] Respiratory 61 H 54 H 59 H Rate Blood Pressure 121/73 110/79 110/78 O2 Sat by Pulse 93 92 89 Oximetry 03/11/18 03/11/18 03/11/18 10:30 10:45 11:00 Temperature Pulse Rate 100 H 98 H 99 H Pulse Rate [ From Monitor] Respiratory 50 H 51 H 42 H Rate Blood Pressure 111/83 119/85 102/79 O2 Sat by Pulse 89 91 87 Oximetry 03/11/18 03/11/18 03/11/18 11:15 11:30 11:46 Temperature Pulse Rate 96 H 103 H 102 H Pulse Rate [ From Monitor] Respiratory 49 H 57 H 35 H Rate Blood Pressure 117/84 117/85 134/79 O2 Sat by Pulse 91 86 90 Oximetry 03/11/18 12:00 Temperature Pulse Rate 95 H Pulse Rate [ From Monitor] Respiratory 46 H Rate Blood Pressure 131/86 O2 Sat by Pulse Oximetry Constitutional: alert, appears uncomfortable Eyes: non-icteric ENT: oropharynx dry Neck: supple Effort: mildly labored Ascultation: Bilateral: rales Percussion: Bilateral: not dull Cardiovascular: other (sinus tach) Gastrointestinal: normoactive bowel sounds, non-tender Neurologic: normal mental status, non-focal exam CBC and BMP: 03/11/18 04:50 03/11/18 04:50 ABG, PT/INR, D-dimer: ABG POC ABG pH 7.356 (7.35-7.45) 03/11/18 05:33 POC ABG pCO2 41.9 (35-45) 03/11/18 05:33 POC ABG pO2 58 (80-105) L 03/11/18 05:33 POC ABG HCO3 23.5 03/11/18 05:33 POC ABG Total CO2 25 03/11/18 05:33 POC ABG O2 Sat 89 03/11/18 05:33 PT/INR, D-dimer PT 17.2 Sec. (12.2-14.9) H 03/10/18 18:15 INR 1.36 (0.87-1.13) H 03/10/18 18:15 Abnormal lab findings: Abnormal Labs 03/09/18 03/09/18 03/09/18 07:00 07:00 07:00 WBC Hgb Hct RDW 15.5 H Plt Count 25 L Seg Neuts % (Manual) 90.0 H Lymphocytes % (Manual) 5.0 L Seg Neutrophils # Man Lymphocytes # (Manual) 0.4 L PT 22.9 H INR 1.98 H APTT Fibrinogen POC ABG pH POC ABG pCO2 POC ABG pO2 VBG pH Sodium 135 L Chloride 90.8 L Carbon Dioxide 17 L BUN 45 H Creatinine 5.8 H Glucose 72 L POC Glucose Lactic Acid Calcium 7.6 L Phosphorus Magnesium Alkaline Phosphatase 154 H Lactate Dehydrogenase Total Creatine Kinase NT-Pro-B Natriuret Pep Albumin 3.6 L Urine WBC (Auto) Urine Creatinine Urine Total Protein 03/09/18 03/09/18 03/09/18 07:00 07:00 07:00 WBC Hgb Hct RDW Plt Count Seg Neuts % (Manual) Lymphocytes % (Manual) Seg Neutrophils # Man Lymphocytes # (Manual) PT INR APTT Fibrinogen POC ABG pH POC ABG pCO2 POC ABG pO2 VBG pH 7.297 L Sodium Chloride Carbon Dioxide BUN Creatinine Glucose POC Glucose Lactic Acid 6.80 H* Calcium Phosphorus 5.40 H Magnesium 1.20 L Alkaline Phosphatase Lactate Dehydrogenase Total Creatine Kinase 228 H NT-Pro-B Natriuret Pep Albumin Urine WBC (Auto) Urine Creatinine Urine Total Protein 03/09/18 03/09/18 03/09/18 09:22 12:36 14:39 WBC Hgb Hct RDW Plt Count Seg Neuts % (Manual) Lymphocytes % (Manual) Seg Neutrophils # Man Lymphocytes # (Manual) PT INR APTT Fibrinogen POC ABG pH POC ABG pCO2 POC ABG pO2 VBG pH Sodium Chloride Carbon Dioxide BUN Creatinine Glucose POC Glucose Lactic Acid 5.90 H* 8.30 H* Calcium Phosphorus Magnesium Alkaline Phosphatase Lactate Dehydrogenase Total Creatine Kinase NT-Pro-B Natriuret Pep Albumin Urine WBC (Auto) 86.0 H Urine Creatinine Urine Total Protein 03/09/18 03/09/18 03/09/18 14:39 14:39 15:12 WBC Hgb Hct RDW Plt Count Seg Neuts % (Manual) Lymphocytes % (Manual) Seg Neutrophils # Man Lymphocytes # (Manual) PT INR APTT Fibrinogen POC ABG pH POC ABG pCO2 POC ABG pO2 VBG pH Sodium Chloride Carbon Dioxide BUN Creatinine Glucose POC Glucose Lactic Acid 5.90 H* Calcium Phosphorus Magnesium Alkaline Phosphatase Lactate Dehydrogenase Total Creatine Kinase NT-Pro-B Natriuret Pep Albumin Urine WBC (Auto) Urine Creatinine 217.1 H 210.7 H Urine Total Protein 820 H 03/09/18 03/09/18 03/09/18 15:53 18:20 20:39 WBC Hgb Hct RDW Plt Count Seg Neuts % (Manual) Lymphocytes % (Manual) Seg Neutrophils # Man Lymphocytes # (Manual) PT INR APTT Fibrinogen POC ABG pH POC ABG pCO2 POC ABG pO2 VBG pH Sodium Chloride Carbon Dioxide BUN Creatinine Glucose POC Glucose 56 L Lactic Acid 5.10 H* 4.40 H* Calcium Phosphorus Magnesium Alkaline Phosphatase Lactate Dehydrogenase Total Creatine Kinase NT-Pro-B Natriuret Pep Albumin Urine WBC (Auto) Urine Creatinine Urine Total Protein 03/09/18 03/09/18 03/10/18 21:33 23:08 01:00 WBC Hgb Hct RDW Plt Count Seg Neuts % (Manual) Lymphocytes % (Manual) Seg Neutrophils # Man Lymphocytes # (Manual) PT INR APTT Fibrinogen POC ABG pH POC ABG pCO2 POC ABG pO2 VBG pH Sodium Chloride Carbon Dioxide BUN Creatinine Glucose POC Glucose Lactic Acid 4.90 H* 4.10 H* 4.10 H* Calcium Phosphorus Magnesium Alkaline Phosphatase Lactate Dehydrogenase Total Creatine Kinase NT-Pro-B Natriuret Pep Albumin Urine WBC (Auto) Urine Creatinine Urine Total Protein 03/10/18 03/10/18 03/10/18 04:40 04:40 05:32 WBC 11.8 H Hgb 11.7 L Hct RDW Plt Count 8 L* Seg Neuts % (Manual) 93.0 H Lymphocytes % (Manual) 4.0 L Seg Neutrophils # Man 11.0 H Lymphocytes # (Manual) 0.5 L PT INR APTT Fibrinogen POC ABG pH 7.254 L POC ABG pCO2 47.8 H POC ABG pO2 59 L VBG pH Sodium 136 L Chloride 96.6 L Carbon Dioxide 21 L BUN 62 H Creatinine 4.9 H Glucose POC Glucose Lactic Acid Calcium 6.2 L D Phosphorus Magnesium Alkaline Phosphatase Lactate Dehydrogenase Total Creatine Kinase NT-Pro-B Natriuret Pep Albumin Urine WBC (Auto) Urine Creatinine Urine Total Protein 03/10/18 03/10/18 03/10/18 06:00 09:10 09:14 WBC Hgb Hct RDW Plt Count Seg Neuts % (Manual) Lymphocytes % (Manual) Seg Neutrophils # Man Lymphocytes # (Manual) PT INR APTT Fibrinogen POC ABG pH 7.266 L POC ABG pCO2 POC ABG pO2 VBG pH Sodium Chloride Carbon Dioxide BUN Creatinine Glucose POC Glucose 56 L Lactic Acid Calcium Phosphorus Magnesium Alkaline Phosphatase Lactate Dehydrogenase Total Creatine Kinase NT-Pro-B Natriuret Pep Albumin Urine WBC (Auto) 32.0 H Urine Creatinine Urine Total Protein 03/10/18 03/10/18 03/10/18 11:16 11:16 11:51 WBC Hgb Hct RDW Plt Count Seg Neuts % (Manual) Lymphocytes % (Manual) Seg Neutrophils # Man Lymphocytes # (Manual) PT INR APTT Fibrinogen POC ABG pH POC ABG pCO2 POC ABG pO2 VBG pH Sodium Chloride Carbon Dioxide BUN Creatinine Glucose POC Glucose 109 H Lactic Acid Calcium Phosphorus Magnesium Alkaline Phosphatase Lactate Dehydrogenase 338 H Total Creatine Kinase 404 H NT-Pro-B Natriuret Pep 87580 H Albumin Urine WBC (Auto) Urine Creatinine Urine Total Protein 01/03/19 01/03/19 01/03/19 18:15 18:15 19:45 WBC Hgb Hct RDW Plt Count Seg Neuts % (Manual) Lymphocytes % (Manual) Seg Neutrophils # Man Lymphocytes # (Manual) PT 17.2 H 17.0 H INR 1.36 H 1.34 H APTT 38.5 H Fibrinogen 852 H POC ABG pH POC ABG pCO2 POC ABG pO2 VBG pH Sodium Chloride Carbon Dioxide BUN Creatinine Glucose POC Glucose 136 H Lactic Acid Calcium Phosphorus Magnesium Alkaline Phosphatase Lactate Dehydrogenase Total Creatine Kinase NT-Pro-B Natriuret Pep Albumin Urine WBC (Auto) Urine Creatinine Urine Total Protein 03/10/18 03/10/18 03/10/18 20:40 22:07 23:06 WBC Hgb Hct RDW Plt Count Seg Neuts % (Manual) Lymphocytes % (Manual) Seg Neutrophils # Man Lymphocytes # (Manual) PT INR APTT Fibrinogen POC ABG pH POC ABG pCO2 POC ABG pO2 VBG pH Sodium Chloride Carbon Dioxide BUN Creatinine Glucose POC Glucose 135 H 135 H 133 H Lactic Acid Calcium Phosphorus Magnesium Alkaline Phosphatase Lactate Dehydrogenase Total Creatine Kinase NT-Pro-B Natriuret Pep Albumin Urine WBC (Auto) Urine Creatinine Urine Total Protein 03/11/18 03/11/18 03/11/18 00:07 02:01 03:10 WBC Hgb Hct RDW Plt Count Seg Neuts % (Manual) Lymphocytes % (Manual) Seg Neutrophils # Man Lymphocytes # (Manual) PT INR APTT Fibrinogen POC ABG pH POC ABG pCO2 POC ABG pO2 VBG pH Sodium Chloride Carbon Dioxide BUN Creatinine Glucose POC Glucose 148 H 161 H 189 H Lactic Acid Calcium Phosphorus Magnesium Alkaline Phosphatase Lactate Dehydrogenase Total Creatine Kinase NT-Pro-B Natriuret Pep Albumin Urine WBC (Auto) Urine Creatinine Urine Total Protein 03/11/18 03/11/18 03/11/18 04:12 04:50 04:50 WBC 12.8 H Hgb 10.9 L Hct 32.5 L RDW 15.3 H Plt Count 17 L* D Seg Neuts % (Manual) 96.0 H Lymphocytes % (Manual) 2.0 L Seg Neutrophils # Man 12.3 H Lymphocytes # (Manual) 0.3 L PT INR APTT Fibrinogen POC ABG pH POC ABG pCO2 POC ABG pO2 VBG pH Sodium Chloride 94.2 L Carbon Dioxide BUN 62 H Creatinine 2.7 H Glucose 191 H POC Glucose 188 H Lactic Acid Calcium 7.9 L D Phosphorus Magnesium Alkaline Phosphatase Lactate Dehydrogenase Total Creatine Kinase NT-Pro-B Natriuret Pep Albumin Urine WBC (Auto) Urine Creatinine Urine Total Protein 03/11/18 03/11/18 03/11/18 05:30 05:33 07:47 WBC Hgb Hct RDW Plt Count Seg Neuts % (Manual) Lymphocytes % (Manual) Seg Neutrophils # Man Lymphocytes # (Manual) PT INR APTT Fibrinogen POC ABG pH POC ABG pCO2 POC ABG pO2 58 L VBG pH Sodium Chloride Carbon Dioxide BUN Creatinine Glucose POC Glucose 187 H 151 H Lactic Acid Calcium Phosphorus Magnesium Alkaline Phosphatase Lactate Dehydrogenase Total Creatine Kinase NT-Pro-B Natriuret Pep Albumin Urine WBC (Auto) Urine Creatinine Urine Total Protein Chest x-ray: image reviewed
--- NOTE | 2018-03-11 13:03 | Consultation ---
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 There were multiple laboratory abnormalities, the most significant of which was severe thrombocytopenia with a platelet count as low as 8,000, and acute renal failure with a creatinine as high as 4.8. Additional workup included an echocardiogram, which were reported with a dilated cardiomyopathy, ejection fraction 20-25%. Cardiology consultation was requested for further assessment of his cardiomyopathy. Patient is currently in the ICU, his appearance is that of a chronically ill, cachectic 33-year-old consistent with his HIV AIDS. He denies chest pain, but did have some shortness of breath, no edema, no palpitations and no syncope. No prior cardiac history. ECG was a sinus tachycardia with nonspecific early repolarization changes. On telemetry, he remains a persistent sinus tachycardia. Past History Past Medical History: HIV/AIDS Past Surgical History: Other (hemorrhoidectomy) Social history: single, full code, other (Marijuana, alcohol occasionally) Family history: other (father has CKD) Medications and Allergies Allergies Allergy/AdvReac Type Severity Reaction Status Date / Time clindamycin Allergy Swelling Verified 03/09/18 06:43 Home Medications Medication Instructions Recorded Confirmed Last Taken Type No Known Home Medications [No 03/09/18 03/09/18 Unknown History Reported Home Medications] Active Meds: Active Medications Albuterol (Proventil) 2.5 mg IH PREOP NR Stop: 03/12/18 12:14 Dextrose (D50w (25gm) Syringe) 50 ml IV PRN PRN PRN Reason: HYPOGLYCEMIA Norepinephrine (Levophed Drip 4 Mg/Ns 250 Ml) 4 mg in 250 mls @ 7.5 mls/hr IV TITR LIU; Protocol Last Admin: 03/11/18 09:43 Dose: 18 mcg/min, 67.5 mls/hr Documented by: Vasopressin 20 unit/ Sodium (Chloride) 101 mls @ 9.09 mls/hr IV TITR LIU; Protocol Last Titration: 03/11/18 06:03 Dose: 0.03 units/min, 9.09 mls/hr Documented by: Cefepime HCl (Maxipime/Ns 2 Gm/100 Ml) 2 gm in 100 mls @ 200 mls/hr IV Q24HR [facility] Last Admin: 03/11/18 09:59 Dose: 200 mls/hr Documented by: Dextrose (D10w) 1,000 mls @ 42 mls/hr IV DIRECT [facility] Last Admin: 03/10/18 11:34 Dose: 42 mls/hr Documented by: Dexamethasone 20 mg/ Sodium (Chloride) 55 mls @ 100 mls/hr IV Q12HR [facility] Last Admin: 03/11/18 12:06 Dose: 100 mls/hr Documented by: Morphine Sulfate (Morphine) 2 mg IV Q4H PRN PRN Reason: Pain, Moderate (4-6) Last Admin: 03/11/18 09:49 Dose: 2 mg Documented by: Ondansetron HCl (Zofran) 4 mg IV Q4H [facility] Last Admin: 03/11/18 12:06 Dose: 4 mg Documented by: Pantoprazole Sodium (Protonix) 40 mg IV QDAY [facility] Last Admin: 03/11/18 09:42 Dose: 40 mg Documented by: Sodium Chloride (Sodium Chloride Flush Syringe 10 Ml) 10 ml IV BID [facility] Last Admin: 03/11/18 09:42 Dose: 10 ml Documented by: Sodium Chloride (Sodium Chloride Flush Syringe 10 Ml) 10 ml IV PRN PRN PRN Reason: LINE FLUSH Review of Systems Cardiovascular: shortness of breath, no chest pain, no orthopnea, no palpitations, no rapid/irregular heart beat, no edema, no syncope, no lighthea dedness Physical Examination Vital Signs Temp Pulse Resp BP Pulse Ox 97.7 F 126 H 18 80/51 98 03/09/18 06:38 03/09/18 06:38 03/09/18 06:38 03/09/18 06:38 03/09/18 06:38 General appearance: cachectic, other (chronically ill-appearing) HEENT: Positive: PERRL Neck: Positive: neck supple Cardiac: Positive: Regular Rhythm Lungs: Positive: Decreased Breath Sounds Neuro: Positive: Grossly Intact Abdomen: Positive: Soft Male genitourinary: Positive: deferred Skin: Positive: Clear Extremities: Absent: edema Results 03/11/18 04:50 03/11/18 04:50 Coagulation 01/03/19 01/03/19 Range/Units 18:15 18:15 PT 17.2 H 17.0 H (12.2-14.9) Sec. INR 1.36 H 1.34 H (0.87-1.13) APTT 38.5 H (24.2-36.6) Sec. CBC 03/11/18 Range/Units 04:50 WBC 12.8 H (4.5-11.0) K/mm3 RBC 3.77 (3.65-5.03) M/mm3 Hgb 10.9 L (11.8-15.2) gm/dl Hct 32.5 L (35.5-45.6) % Plt Count 17 L* D (140-440) K/mm3 Comprehensive Metabolic Panel 03/11/18 Range/Units 04:50 Sodium 137 (137-145) mmol/L Potassium 4.1 (3.6-5.0) mmol/L Chloride 94.2 L (98-107) mmol/L Carbon Dioxide 25 (22-30) mmol/L BUN 62 H (9-20) mg/dL Creatinine 2.7 H (0.8-1.5) mg/dL Glucose 191 H (75-100) mg/dL Calcium 7.9 L D (8.4-10.2) mg/dL EKG interpretations - Telemetry EKG Rhythm: Sinus Tachycardia Assessment and Plan - Patient Problems (1) Dilated cardiomyopathy Current Visit: Yes Status: Acute Plan to address problem: Dilated cardiomyopathy likely related to the patient's HIV AIDS condition. We will recommend afterload agents, beta blockers as tolerated. Due to severe thrombocytopenia, he may not tolerate oral antiplatelet therapy. Conservative cardiac management.
--- NOTE | 2018-03-11 13:17 | Hem/Onc Progress Note ---
Assessment and Plan 1. Thrombocytopenia. I reviewed the peripheral smear. I spoke to the cleaner laboratory equipment. The laboratory report mentioned no schistocytes. When I reviewed the smear it did not have any schistocytes. Creatinine is elevated. The patient is short of breath. 2. At this time, differential includes some idiopathic thrombocytopenic purpura. Other differentials include immunosuppression related or medication or infection related. The patient's PT, PTT is elevated, but fibrinogen is not low. At admission, chest x-ray was clear and now it has worsened. There is a clinical suspicion of this being infection or disseminated intravascular coagulation or acute respiratory distress syndrome. 3. Renal impairment. 4. Decreased urine output. 5. h/o Shortness of breath. 6. Human immunodeficiency virus, pt was on treatment. 7. discussed with IDT. 8. steroid trial. 9. BNP was elevated. 10. I ordered [id number]. 11. Abnormal liver function tests. 12. Being treated for Haemophilus influenzae. 13. CD4 count 400. I will follow the patient during inpatient stay. 03/11/2018 - d/w dr garrison - low EF pt is on dexa 40 daily s/p plt transfusion no active bleeding Subjective Date of service: 03/11/18 Principal diagnosis: low plt Interval history: pt on o2 support - s/p plt transfusion and 20 mg dexa Objective - Constitutional Vitals: Last Vital Signs Temp 98.5 F 03/11/18 12:00 Pulse 95 H 03/11/18 12:00 Resp 46 H 03/11/18 12:00 BP 131/86 03/11/18 12:00 Pulse Ox 90 03/11/18 11:46 Pain Intensity (0-10): denies any pain General appearance: mild distress (sob) Performance status: 3-limited selfcare - EENT Eyes: EOM intact ENT: hearing intact Lymph node exam: negative cervical, negative supraclavicular - Neck Neck: normal ROM - Respiratory Respiratory effort: Positive: labored Respiratory: bilateral: diminished - Cardiovascular Heart Sounds: Present: S1 & S2 Extremities: no ischemia - Gastrointestinal General gastrointestinal: Present: soft, non-tender Rectal Exam: deferred - Genitourinary Male genitourinary: Present: deferred - Integumentary Integumentary: warm - Musculoskeletal Musculoskeletal: strength equal bilaterally - Neurologic Neurologic: moves all extremities - Labs Lab Results: Laboratory Results - last 24 hr 03/09/18 03/10/18 03/10/18 12:36 11:16 14:24 WBC RBC Hgb Hct MCV MCH MCHC RDW Plt Count Add Manual Diff Total Counted Seg Neuts % (Manual) Band Neutrophils % Lymphocytes % (Manual) Reactive Lymphs % (Man) Monocytes % (Manual) Eosinophils % (Manual) Basophils % (Manual) Metamyelocytes % Myelocytes % Promyelocytes % Blast Cells % Nucleated RBC % Seg Neutrophils # Man Band Neutrophils # Lymphocytes # (Manual) Abs React Lymphs (Man) Monocytes # (Manual) Eosinophils # (Manual) Basophils # (Manual) Metamyelocytes # Myelocytes # Promyelocytes # Blast Cells # WBC Morphology Hypersegmented Neuts Hyposegmented Neuts Hypogranular Neuts Smudge Cells Toxic Granulation Toxic Vacuolation Dohle Bodies Pelger-Huet Anomaly Kamar Rods Platelet Estimate Clumped Platelets Plt Clumps, EDTA Large Platelets Giant Platelets Platelet Satelliting Plt Morphology Comment RBC Morphology Dimorphic RBCs Polychromasia Hypochromasia Poikilocytosis Anisocytosis Microcytosis Macrocytosis Spherocytes Pappenheimer Bodies Sickle Cells Target Cells Tear Drop Cells Ovalocytes Helmet Cells [place] Bodies [place] Rings Lyssa Cells Bite Cells Crenated Cell Elliptocytes Acanthocytes (Spur) Rouleaux Hemoglobin C Crystals Schistocytes Malaria parasites Jose Bodies Hem Pathologist Commnt PT INR APTT Fibrinogen POC ABG pH POC ABG pCO2 POC ABG pO2 POC ABG HCO3 POC ABG Total CO2 POC ABG O2 Sat POC ABG Base Excess FiO2 Sodium Potassium Chloride Carbon Dioxide Anion Gap BUN Creatinine Estimated GFR BUN/Creatinine Ratio Glucose POC Glucose 91 Calcium Phosphorus Magnesium NT-Pro-B Natriuret Pep 33386 H Blood Type O POSITIVE Antibody Screen Negative 03/10/18 03/10/18 03/10/18 16:37 18:15 18:15 WBC RBC Hgb Hct MCV MCH MCHC RDW Plt Count Add Manual Diff Total Counted Seg Neuts % (Manual) Band Neutrophils % Lymphocytes % (Manual) Reactive Lymphs % (Man) Monocytes % (Manual) Eosinophils % (Manual) Basophils % (Manual) Metamyelocytes % Myelocytes % Promyelocytes % Blast Cells % Nucleated RBC % Seg Neutrophils # Man Band Neutrophils # Lymphocytes # (Manual) Abs React Lymphs (Man) Monocytes # (Manual) Eosinophils # (Manual) Basophils # (Manual) Metamyelocytes # Myelocytes # Promyelocytes # Blast Cells # WBC Morphology Hypersegmented Neuts Hyposegmented Neuts Hypogranular Neuts Smudge Cells Toxic Granulation Toxic Vacuolation Dohle Bodies Pelger-Huet Anomaly Kamar Rods Platelet Estimate Clumped Platelets Plt Clumps, EDTA Large Platelets Giant Platelets Platelet Satelliting Plt Morphology Comment RBC Morphology Dimorphic RBCs Polychromasia Hypochromasia Poikilocytosis Anisocytosis Microcytosis Macrocytosis Spherocytes Pappenheimer Bodies Sickle Cells Target Cells Tear Drop Cells Ovalocytes Helmet Cells [place] Bodies [place] Rings Lyssa Cells Bite Cells Crenated Cell Elliptocytes Acanthocytes (Spur) Rouleaux Hemoglobin C Crystals Schistocytes Malaria parasites Jose Bodies Hem Pathologist Commnt PT 17.2 H 17.0 H INR 1.36 H 1.34 H APTT 38.5 H Fibrinogen 852 H POC ABG pH POC ABG pCO2 POC ABG pO2 POC ABG HCO3 POC ABG Total CO2 POC ABG O2 Sat POC ABG Base Excess FiO2 Sodium Potassium Chloride Carbon Dioxide Anion Gap BUN Creatinine Estimated GFR BUN/Creatinine Ratio Glucose POC Glucose 89 Calcium Phosphorus Magnesium NT-Pro-B Natriuret Pep Blood Type Antibody Screen 03/10/18 03/10/18 03/10/18 19:45 20:40 22:07 WBC RBC Hgb Hct MCV MCH MCHC RDW Plt Count Add Manual Diff Total Counted Seg Neuts % (Manual) Band Neutrophils % Lymphocytes % (Manual) Reactive Lymphs % (Man) Monocytes % (Manual) Eosinophils % (Manual) Basophils % (Manual) Metamyelocytes % Myelocytes % Promyelocytes % Blast Cells % Nucleated RBC % Seg Neutrophils # Man Band Neutrophils # Lymphocytes # (Manual) Abs React Lymphs (Man) Monocytes # (Manual) Eosinophils # (Manual) Basophils # (Manual) Metamyelocytes # Myelocytes # Promyelocytes # Blast Cells # WBC Morphology Hypersegmented Neuts Hyposegmented Neuts Hypogranular Neuts Smudge Cells Toxic Granulation Toxic Vacuolation Dohle Bodies Pelger-Huet Anomaly Kamar Rods Platelet Estimate Clumped Platelets Plt Clumps, EDTA Large Platelets Giant Platelets Platelet Satelliting Plt Morphology Comment RBC Morphology Dimorphic RBCs Polychromasia Hypochromasia Poikilocytosis Anisocytosis Microcytosis Macrocytosis Spherocytes Pappenheimer Bodies Sickle Cells Target Cells Tear Drop Cells Ovalocytes Helmet Cells [place] Bodies [place] Rings Lyssa Cells Bite Cells Crenated Cell Elliptocytes Acanthocytes (Spur) Rouleaux Hemoglobin C Crystals Schistocytes Malaria parasites Jose Bodies Hem Pathologist Commnt PT INR APTT Fibrinogen POC ABG pH POC ABG pCO2 POC ABG pO2 POC ABG HCO3 POC ABG Total CO2 POC ABG O2 Sat POC ABG Base Excess FiO2 Sodium Potassium Chloride Carbon Dioxide Anion Gap BUN Creatinine Estimated GFR BUN/Creatinine Ratio Glucose POC Glucose 136 H 135 H 135 H Calcium Phosphorus Magnesium NT-Pro-B Natriuret Pep Blood Type Antibody Screen 03/10/18 03/11/18 03/11/18 23:06 00:07 02:01 WBC RBC Hgb Hct MCV MCH MCHC RDW Plt Count Add Manual Diff Total Counted Seg Neuts % (Manual) Band Neutrophils % Lymphocytes % (Manual) Reactive Lymphs % (Man) Monocytes % (Manual) Eosinophils % (Manual) Basophils % (Manual) Metamyelocytes % Myelocytes % Promyelocytes % Blast Cells % Nucleated RBC % Seg Neutrophils # Man Band Neutrophils # Lymphocytes # (Manual) Abs React Lymphs (Man) Monocytes # (Manual) Eosinophils # (Manual) Basophils # (Manual) Metamyelocytes # Myelocytes # Promyelocytes # Blast Cells # WBC Morphology Hypersegmented Neuts Hyposegmented Neuts Hypogranular Neuts Smudge Cells Toxic Granulation Toxic Vacuolation Dohle Bodies Pelger-Huet Anomaly Kamar Rods Platelet Estimate Clumped Platelets Plt Clumps, EDTA Large Platelets Giant Platelets Platelet Satelliting Plt Morphology Comment RBC Morphology Dimorphic RBCs Polychromasia Hypochromasia Poikilocytosis Anisocytosis Microcytosis Macrocytosis Spherocytes Pappenheimer Bodies Sickle Cells Target Cells Tear Drop Cells Ovalocytes Helmet Cells [place] Bodies [place] Rings Lyssa Cells Bite Cells Crenated Cell Elliptocytes Acanthocytes (Spur) Rouleaux Hemoglobin C Crystals Schistocytes Malaria parasites Jose Bodies Hem Pathologist Commnt PT INR APTT Fibrinogen POC ABG pH POC ABG pCO2 POC ABG pO2 POC ABG HCO3 POC ABG Total CO2 POC ABG O2 Sat POC ABG Base Excess FiO2 Sodium Potassium Chloride Carbon Dioxide Anion Gap BUN Creatinine Estimated GFR BUN/Creatinine Ratio Glucose POC Glucose 133 H 148 H 161 H Calcium Phosphorus Magnesium NT-Pro-B Natriuret Pep Blood Type Antibody Screen 03/11/18 03/11/18 03/11/18 03:10 04:12 04:50 WBC 12.8 H RBC 3.77 Hgb 10.9 L Hct 32.5 L MCV 86 MCH 29 MCHC 33 RDW 15.3 H Plt Count 17 L* D Add Manual Diff Complete Total Counted 100 Seg Neuts % (Manual) 96.0 H Band Neutrophils % 1.0 Lymphocytes % (Manual) 2.0 L Reactive Lymphs % (Man) 0 Monocytes % (Manual) 1.0 Eosinophils % (Manual) 0 Basophils % (Manual) 0 Metamyelocytes % 0 Myelocytes % 0 Promyelocytes % 0 Blast Cells % 0 Nucleated RBC % Not Reportable Seg Neutrophils # Man 12.3 H Band Neutrophils # 0.1 Lymphocytes # (Manual) 0.3 L Abs React Lymphs (Man) 0.0 Monocytes # (Manual) 0.1 Eosinophils # (Manual) 0.0 Basophils # (Manual) 0.0 Metamyelocytes # 0.0 Myelocytes # 0.0 Promyelocytes # 0.0 Blast Cells # 0.0 WBC Morphology Not Reportable Hypersegmented Neuts Not Reportable Hyposegmented Neuts Not Reportable Hypogranular Neuts Not Reportable Smudge Cells Not Reportable Toxic Granulation Not Reportable Toxic Vacuolation Not Reportable Dohle Bodies 2+ Pelger-Huet Anomaly Not Reportable Kamar Rods Not Reportable Platelet Estimate Cons Clumped Platelets Not Reportable Plt Clumps, EDTA Not Reportable Large Platelets Not Reportable Giant Platelets Not Reportable Platelet Satelliting Not Reportable Plt Morphology Comment Not Reportable RBC Morphology Not Reportable Dimorphic RBCs Not Reportable Polychromasia Not Reportable Hypochromasia Not Reportable Poikilocytosis 1+ Anisocytosis 1+ Microcytosis Not Reportable Macrocytosis Not Reportable Spherocytes Not Reportable Pappenheimer Bodies Not Reportable Sickle Cells Not Reportable Target Cells Few Tear Drop Cells Not Reportable Ovalocytes Few Helmet Cells Not Reportable [place] Bodies Not Reportable [place] Rings Not Reportable Lyssa Cells Not Reportable Bite Cells Not Reportable Crenated Cell Not Reportable Elliptocytes Not Reportable Acanthocytes (Spur) Not Reportable Rouleaux Not Reportable Hemoglobin C Crystals Not Reportable Schistocytes Not Reportable Malaria parasites Not Reportable Jose Bodies Not Reportable Hem Pathologist Commnt No PT INR APTT Fibrinogen POC ABG pH POC ABG pCO2 POC ABG pO2 POC ABG HCO3 POC ABG Total CO2 POC ABG O2 Sat POC ABG Base Excess FiO2 Sodium Potassium Chloride Carbon Dioxide Anion Gap BUN Creatinine Estimated GFR BUN/Creatinine Ratio Glucose POC Glucose 189 H 188 H Calcium Phosphorus Magnesium NT-Pro-B Natriuret Pep Blood Type Antibody Screen 03/11/18 03/11/18 03/11/18 04:50 05:30 05:33 WBC RBC Hgb Hct MCV MCH MCHC RDW Plt Count Add Manual Diff Total Counted Seg Neuts % (Manual) Band Neutrophils % Lymphocytes % (Manual) Reactive Lymphs % (Man) Monocytes % (Manual) Eosinophils % (Manual) Basophils % (Manual) Metamyelocytes % Myelocytes % Promyelocytes % Blast Cells % Nucleated RBC % Seg Neutrophils # Man Band Neutrophils # Lymphocytes # (Manual) Abs React Lymphs (Man) Monocytes # (Manual) Eosinophils # (Manual) Basophils # (Manual) Metamyelocytes # Myelocytes # Promyelocytes # Blast Cells # WBC Morphology Hypersegmented Neuts Hyposegmented Neuts Hypogranular Neuts Smudge Cells Toxic Granulation Toxic Vacuolation Dohle Bodies Pelger-Huet Anomaly Kamar Rods Platelet Estimate Clumped Platelets Plt Clumps, EDTA Large Platelets Giant Platelets Platelet Satelliting Plt Morphology Comment RBC Morphology Dimorphic RBCs Polychromasia Hypochromasia Poikilocytosis Anisocytosis Microcytosis Macrocytosis Spherocytes Pappenheimer Bodies Sickle Cells Target Cells Tear Drop Cells Ovalocytes Helmet Cells [place] Bodies [place] Rings Lyssa Cells Bite Cells Crenated Cell Elliptocytes Acanthocytes (Spur) Rouleaux Hemoglobin C Crystals Schistocytes Malaria parasites Jose Bodies Hem Pathologist Commnt PT INR APTT Fibrinogen POC ABG pH 7.356 POC ABG pCO2 41.9 POC ABG pO2 58 L POC ABG HCO3 23.5 POC ABG Total CO2 25 POC ABG O2 Sat 89 POC ABG Base Excess -2 FiO2 80 Sodium 137 Potassium 4.1 Chloride 94.2 L Carbon Dioxide 25 Anion Gap 22 BUN 62 H Creatinine 2.7 H Estimated GFR 33 BUN/Creatinine Ratio 23 Glucose 191 H POC Glucose 187 H Calcium 7.9 L D Phosphorus 3.50 Magnesium 2.00 NT-Pro-B Natriuret Pep Blood Type Antibody Screen 03/11/18 03/11/18 07:47 12:11 WBC RBC Hgb Hct MCV MCH MCHC RDW Plt Count Add Manual Diff Total Counted Seg Neuts % (Manual) Band Neutrophils % Lymphocytes % (Manual) Reactive Lymphs % (Man) Monocytes % (Manual) Eosinophils % (Manual) Basophils % (Manual) Metamyelocytes % Myelocytes % Promyelocytes % Blast Cells % Nucleated RBC % Seg Neutrophils # Man Band Neutrophils # Lymphocytes # (Manual) Abs React Lymphs (Man) Monocytes # (Manual) Eosinophils # (Manual) Basophils # (Manual) Metamyelocytes # Myelocytes # Promyelocytes # Blast Cells # WBC Morphology Hypersegmented Neuts Hyposegmented Neuts Hypogranular Neuts Smudge Cells Toxic Granulation Toxic Vacuolation Dohle Bodies Pelger-Huet Anomaly Kamar Rods Platelet Estimate Clumped Platelets Plt Clumps, EDTA Large Platelets Giant Platelets Platelet Satelliting Plt Morphology Comment RBC Morphology Dimorphic RBCs Polychromasia Hypochromasia Poikilocytosis Anisocytosis Microcytosis Macrocytosis Spherocytes Pappenheimer Bodies Sickle Cells Target Cells Tear Drop Cells Ovalocytes Helmet Cells [place] Bodies [place] Rings Lehr Cells Bite Cells Crenated Cell Elliptocytes Acanthocytes (Spur) Rouleaux Hemoglobin C Crystals Schistocytes Malaria parasites Jose Bodies Hem Pathologist Commnt PT INR APTT Fibrinogen POC ABG pH POC ABG pCO2 POC ABG pO2 POC ABG HCO3 POC ABG Total CO2 POC ABG O2 Sat POC ABG Base Excess FiO2 Sodium Potassium Chloride Carbon Dioxide Anion Gap BUN Creatinine Estimated GFR BUN/Creatinine Ratio Glucose POC Glucose 151 H 166 H Calcium Phosphorus Magnesium NT-Pro-B Natriuret Pep Blood Type Antibody Screen Medications & Allergies - Medications Allergies/Adverse Reactions: Allergies clindamycin Allergy (Verified 03/09/18 06:43) Swelling Home Medications: Home Medications Medication Instructions Recorded Confirmed Last Taken Type RX: No Known Home Medications [No 03/09/18 03/09/18 Unknown History Reported Home Medications] Active Medications: Generic Name Dose Route Start Last Admin Trade Name Freq PRN Reason Stop Dose Admin Albuterol 2.5 mg 03/11/18 12:15 Proventil IH 03/12/18 12:14 PREOP NR Dextrose 50 ml 03/09/18 16:15 D50w (25gm) Syringe IV PRN PRN HYPOGLYCEMIA Norepinephrine 4 mg in 250 mls @ 7.5 mls/hr 03/09/18 23:45 03/11/18 09:43 Levophed Drip 4 Mg/Ns 250 Ml IV 18 mcg/min TITR LIU 67.5 mls/hr Administration Protocol 2 MCG/MIN Vasopressin 20 unit/ Sodium 101 mls @ 9.09 mls/hr 03/10/18 11:00 03/11/18 06:03 Chloride IV 0.03 units/min TITR LIU 9.09 mls/hr Titration Protocol 0.03 UNITS/MIN Cefepime HCl 2 gm in 100 mls @ 200 mls/hr 03/10/18 11:00 03/11/18 09:59 Maxipime/Ns 2 Gm/100 Ml IV 200 mls/hr Q24HR LIU Administration Dextrose 1,000 mls @ 42 mls/hr 03/10/18 11:00 03/10/18 11:34 D10w IV 42 mls/hr DIRECT LIU Administration Dexamethasone 20 mg/ Sodium 55 mls @ 100 mls/hr 03/11/18 11:30 03/11/18 12:06 Chloride IV 100 mls/hr Q12HR LIU Administration Morphine Sulfate 2 mg 03/09/18 10:41 03/11/18 09:49 Morphine IV 2 mg Q4H PRN Administration Pain, Moderate (4-6) Ondansetron HCl 4 mg 03/10/18 19:30 03/11/18 12:06 Zofran IV 4 mg Q4H LIU Administration Pantoprazole Sodium 40 mg 03/09/18 13:00 03/11/18 09:42 Protonix IV 40 mg QDAY LIU Administration Sodium Chloride 10 ml 03/09/18 22:00 03/11/18 09:42 Sodium Chloride Flush Syringe 10 Ml IV 10 ml BID LIU Administration Sodium Chloride 10 ml 03/09/18 10:41 Sodium Chloride Flush Syringe 10 Ml IV PRN PRN LINE FLUSH
[2018-03-11 15:24] LABS: Hematocrit 33.8 % (35.5-45.6); Mean Corpuscular HGB Conc 33 % (32-34); Mean Corpuscular Volume 86 fl (84-94); Red Blood Count 3.92 M/mm3 (3.65-5.03)
[2018-03-11 15:31] LABS: Platelet Count 15 K/mm3 (140-440)
[2018-03-11] MEDS ORDERED: NACL 0.9% 500 ML 500 ML IV NR (16:00)
[2018-03-11 16:17] LABS: Basophils % (Manual) 0 % (0.0-1.8); Eosinophils % (Manual) 0 % (0.0-4.3); RBC Morphology Normal; Total Cells Counted 100
[2018-03-11] MEDS: D10W 1,000 ML IV SCH (16:29)
[2018-03-11] MEDS ORDERED: NACL 0.9% 500 ML 500 ML IV ONE (16:57)
--- NOTE | 2018-03-11 17:32 | Progress Note ---
Assessment and Plan Cultures: 03/09/2018 blood culture: Hemophilus hemolyticus in both sets 03/09/2018 influenza rapid: Negative A/P: 33/M with no medical history, admitted with: 1) Septic shock requiring pressors: currently on low dose levophed and vasopressin. 2) Acute respiratory failure: on BiPAP. Initial CXR not suggestive of pneumonia, low suspicion for PJP pneumonia especially since patient reports a good recent CD4 count. Repeat CXRs are probably more suggestive of fluid overload / pulmonary edema. 3) Haemophilus hemolyticus bacteremia: source unclear ?lung. Initial CXR not suggestive of pneumonia. Continue Cefepime. 4) HIV positive: Apparently he has been HIV positive, used to be on meds - Genvoya but stopped taking it 6 months ago, states his last CD4 count was 400+. HIV RNA PCR and CD4 count pending. 5) Acute renal failure, severe thrombocytopenia, coagulopathy: TTP v/s DIC. Nep hrology and Hematology consulted. Appreciate recs. Ok for steroids from ID standpoint. [id number] pending. FELICIA, ANCA, C3, C4 pending. 6) Cardiomyopathy: low EF. etiology unclear. ?stress induced. Recs: - continue Cefepime, renally adjusted - HIV PCR and CD4 count pending - OK for steroids from ID standpoint - critically ill. Guarded prognosis Discussed with Customer Acquisition Manager Dr. Ruff. MD [facility] C: [phone] O: [phone] F: [phone] Subjective Date of service: 03/11/18 Principal diagnosis: acute renal failure Interval history: Remains critically ill. On pressors. On BiPAP. Confused at times. Discussed with RN. Patient's mother at bedside. Objective - Exam Narrative Exam: Physical Exam: Constitutional: Alert, cooperative. resp distress, on BiPAP Head, Ears, Nose: Normocephalic, atraumatic. External ears, nose normal Eyes: Conjunctivae/corneas clear. No icterus. No ptosis. Neck: Supple, no meningeal signs Oral: on BiPAP Cardiovascular: S1, S2 normal, tachycardic Respiratory: Good air entry, clear to auscultation bilaterally GI: Mild diffuse tenderness; bowel sounds normal. No peritoneal signs Musculoskeletal: No pedal edema, no cyanosis. Skin: No rash or abscess Hem/Lymphatic: No palpable cervical or supraclavicular nodes. No lymphangitis Psych: restless Neurological: Awake. No gross abnormality - Constitutional Vitals: Vital Signs Temp Pulse Resp BP Pulse Ox 98.5 F 93 H 19 131/86 94 03/11/18 12:00 03/11/18 12:00 03/11/18 12:00 03/11/18 12:00 03/11/18 12:00 Temperature -Last 24 Hours Temperature 98.5 F Temperature 98.4 F Temperature 99.6 F Temperature 98.8 F Temperature 98.8 F Temperature 99.7 F Temperature 99 F Temperature 99 F Temperature 99.6 F Temperature 99.6 F Temperature 99.9 F Temperature 99.3 F - Labs CBC & Chem 7: 03/11/18 14:48 03/11/18 04:50 Labs: Abnormal lab results 03/10/18 03/10/18 03/10/18 Range/Units 18:15 18:15 19:45 WBC (4.5-11.0) K/mm3 Hgb (11.8-15.2) gm/dl Hct (35.5-45.6) % RDW (13.2-15.2) % Plt Count (140-440) K/mm3 Seg Neuts % (Manual) (40.0-70.0) % Lymphocytes % (Manual) (13.4-35.0) % Seg Neutrophils # Man (1.8-7.7) K/mm3 Lymphocytes # (Manual) (1.2-5.4) K/mm3 PT 17.2 H 17.0 H (12.2-14.9) Sec. INR 1.36 H 1.34 H (0.87-1.13) APTT 38.5 H (24.2-36.6) Sec. Fibrinogen 852 H (211-480) mg/dl POC ABG pO2 (80-105) Chloride (98-107) mmol/L BUN (9-20) mg/dL Creatinine (0.8-1.5) mg/dL Glucose (75-100) mg/dL POC Glucose 136 H (70-105) Calcium (8.4-10.2) mg/dL 03/10/18 03/10/18 03/10/18 Range/Units 20:40 22:07 23:06 WBC (4.5-11.0) K/mm3 Hgb (11.8-15.2) gm/dl Hct (35.5-45.6) % RDW (13.2-15.2) % Plt Count (140-440) K/mm3 Seg Neuts % (Manual) (40.0-70.0) % Lymphocytes % (Manual) (13.4-35.0) % Seg Neutrophils # Man (1.8-7.7) K/mm3 Lymphocytes # (Manual) (1.2-5.4) K/mm3 PT (12.2-14.9) Sec. INR (0.87-1.13) APTT (24.2-36.6) Sec. Fibrinogen (211-480) mg/dl POC ABG pO2 (80-105) Chloride (98-107) mmol/L BUN (9-20) mg/dL Creatinine (0.8-1.5) mg/dL Glucose (75-100) mg/dL POC Glucose 135 H 135 H 133 H (70-105) Calcium (8.4-10.2) mg/dL 03/11/18 03/11/18 03/11/18 Range/Units 00:07 02:01 03:10 WBC (4.5-11.0) K/mm3 Hgb (11.8-15.2) gm/dl Hct (35.5-45.6) % RDW (13.2-15.2) % Plt Count (140-440) K/mm3 Seg Neuts % (Manual) (40.0-70.0) % Lymphocytes % (Manual) (13.4-35.0) % Seg Neutrophils # Man (1.8-7.7) K/mm3 Lymphocytes # (Manual) (1.2-5.4) K/mm3 PT (12.2-14.9) Sec. INR (0.87-1.13) APTT (24.2-36.6) Sec. Fibrinogen (211-480) mg/dl POC ABG pO2 (80-105) Chloride (98-107) mmol/L BUN (9-20) mg/dL Creatinine (0.8-1.5) mg/dL Glucose (75-100) mg/dL POC Glucose 148 H 161 H 189 H (70-105) Calcium (8.4-10.2) mg/dL 03/11/18 03/11/18 03/11/18 Range/Units 04:12 04:50 04:50 WBC 12.8 H (4.5-11.0) K/mm3 Hgb 10.9 L (11.8-15.2) gm/dl Hct 32.5 L (35.5-45.6) % RDW 15.3 H (13.2-15.2) % Plt Count 17 L* D (140-440) K/mm3 Seg Neuts % (Manual) 96.0 H (40.0-70.0) % Lymphocytes % (Manual) 2.0 L (13.4-35.0) % Seg Neutrophils # Man 12.3 H (1.8-7.7) K/mm3 Lymphocytes # (Manual) 0.3 L (1.2-5.4) K/mm3 PT (12.2-14.9) Sec. INR (0.87-1.13) APTT (24.2-36.6) Sec. Fibrinogen (211-480) mg/dl POC ABG pO2 (80-105) Chloride 94.2 L (98-107) mmol/L BUN 62 H (9-20) mg/dL Creatinine 2.7 H (0.8-1.5) mg/dL Glucose 191 H (75-100) mg/dL POC Glucose 188 H (70-105) Calcium 7.9 L D (8.4-10.2) mg/dL 03/11/18 03/11/18 03/11/18 Range/Units 05:30 05:33 07:47 WBC (4.5-11.0) K/mm3 Hgb (11.8-15.2) gm/dl Hct (35.5-45.6) % RDW (13.2-15.2) % Plt Count (140-440) K/mm3 Seg Neuts % (Manual) (40.0-70.0) % Lymphocytes % (Manual) (13.4-35.0) % Seg Neutrophils # Man (1.8-7.7) K/mm3 Lymphocytes # (Manual) (1.2-5.4) K/mm3 PT (12.2-14.9) Sec. INR (0.87-1.13) APTT (24.2-36.6) Sec. Fibrinogen (211-480) mg/dl POC ABG pO2 58 L (80-105) Chloride (98-107) mmol/L BUN (9-20) mg/dL Creatinine (0.8-1.5) mg/dL Glucose (75-100) mg/dL POC Glucose 187 H 151 H (70-105) Calcium (8.4-10.2) mg/dL 03/11/18 03/11/18 03/11/18 Range/Units 12:11 13:18 14:26 WBC (4.5-11.0) K/mm3 Hgb (11.8-15.2) gm/dl Hct (35.5-45.6) % RDW (13.2-15.2) % Plt Count (140-440) K/mm3 Seg Neuts % (Manual) (40.0-70.0) % Lymphocytes % (Manual) (13.4-35.0) % Seg Neutrophils # Man (1.8-7.7) K/mm3 Lymphocytes # (Manual) (1.2-5.4) K/mm3 PT (12.2-14.9) Sec. INR (0.87-1.13) APTT (24.2-36.6) Sec. Fibrinogen (211-480) mg/dl POC ABG pO2 (80-105) Chloride (98-107) mmol/L BUN (9-20) mg/dL Creatinine (0.8-1.5) mg/dL Glucose (75-100) mg/dL POC Glucose 166 H 157 H 145 H (70-105) Calcium (8.4-10.2) mg/dL 03/11/18 03/11/18 03/11/18 Range/Units 14:48 15:15 16:17 WBC 21.2 H (4.5-11.0) K/mm3 Hgb 11.0 L (11.8-15.2) gm/dl Hct 33.8 L (35.5-45.6) % RDW (13.2-15.2) % Plt Count 15 L* (140-440) K/mm3 Seg Neuts % (Manual) 92.0 H (40.0-70.0) % Lymphocytes % (Manual) 4.0 L (13.4-35.0) % Seg Neutrophils # Man 19.5 H (1.8-7.7) K/mm3 Lymphocytes # (Manual) 0.8 L (1.2-5.4) K/mm3 PT (12.2-14.9) Sec. INR (0.87-1.13) APTT (24.2-36.6) Sec. Fibrinogen (211-480) mg/dl POC ABG pO2 (80-105) Chloride (98-107) mmol/L BUN (9-20) mg/dL Creatinine (0.8-1.5) mg/dL Glucose (75-100) mg/dL POC Glucose 139 H 145 H (70-105) Calcium (8.4-10.2) mg/dL - Imaging and cardiology Chest x-ray: report reviewed, image reviewed (bilateral pulmonary infiltrates / edema)
[2018-03-11] MEDS: ATIVAN IV PRN (21:01)
[2018-03-11] MEDS: MEPRON PO SCH (21:16)
[2018-03-11 23:24] LABS: Hematocrit 31.3 % (35.5-45.6); Hemoglobin 10.6 gm/dl (11.8-15.2); Mean Corpuscular HGB Conc 34 % (32-34); Mean Corpuscular Volume 84 fl (84-94); Red Blood Count 3.74 M/mm3 (3.65-5.03); Red Cell Distribution Width 14.6 % (13.2-15.2)
[2018-03-11 23:29] LABS: Platelet Count 51 K/mm3 (140-440)
[2018-03-12] MEDS: MORPHINE IV PRN ×2 (00:45→14:42)
[2018-03-12] MEDS: ATIVAN IV PRN ×4 (00:46→16:35)
[2018-03-12] MEDS: DECADRON 20 MG in NACL 0.9% 50 ML IV SCH ×3 (02:17→21:45)
[2018-03-12] MEDS: SODIUM CHLORIDE FLUSH SYRINGE 10 ML IV SCH ×3 (02:18→22:01)
[2018-03-12] MEDS: ZOFRAN IV SCH ×6 (02:18→18:47)
[2018-03-12] MEDS: HALDOL IV PRN (02:41)
[2018-03-12] MEDS: Vasostrict 20 UNIT in NACL 0.9% 100 ML IV SCH ×2 (04:09→15:10)
[2018-03-12] MEDS ORDERED: VERSED IV ONE (05:45)
[2018-03-12] MEDS ORDERED: QUELICIN ONE (05:45)
[2018-03-12] MEDS ORDERED: DIPRIVAN 10 MG/ML 1,000 MG/100 ML BOTTLE IV ONE (06:06)
[2018-03-12 06:41] LABS: Hematocrit 31.7 % (35.5-45.6); Hemoglobin 10.5 gm/dl (11.8-15.2); Mean Corpuscular HGB Conc 33 % (32-34); Mean Corpuscular Volume 86 fl (84-94); Red Blood Count 3.71 M/mm3 (3.65-5.03); Red Cell Distribution Width 15.3 % (13.2-15.2)
[2018-03-12 07:13] LABS: Calcium 8.4 mg/dL (8.4-10.2)
[2018-03-12 07:15] LABS: Albumin 3.1 g/dL (3.9-5); Bilirubin,Direct 1.5 mg/dL (0-0.2)
[2018-03-12] MEDS ORDERED: VASELINE LIP THERAPY TP PRN (07:47)
[2018-03-12] MEDS ORDERED: ARTIFICIAL TEARS OPHTH OINT OU PRN (07:47)
--- NOTE | 2018-03-12 08:19 | Progress Note ---
Assessment and Plan Assessment and plan: Hypotension Admitted to ICU Started on Levophed after bolus iv fluid Continue Levophed and Vasopressin Acute respiratory failure worsened, intubated, put on vent this morning lasix iv SCOTT Nephrology consulted and has evaluated Discussed with nephrology Improving Cr 2.2 today Sepsis Blood cultures growing Hemophylus haemolyticus Started iv Abx Now on Cefepime ID Physician following Leukocytosis worsening HIV infection. Diagnosed 6 yrs ago was on HAART but been off meds for 2 mths ID Physician following Thrombocytopenia Platelets now 34 after total 5 platelet pheresis. Hematology following On steroids Hyponatremia Hypoglycemia. Cont D10 Coagulopathy, improved Lactic acidosis Metabolic acidosis, resolved Full code status History Interval history: Patient had more shortness of breath, respiratory distress so intubated this morning Still on pressors Hospitalist Physical - Physical exam Narrative exam: GEN: Intubated, on Ventilator HEENT: Normocephalic, atraumatic, Neck: supple, No JVD Lungs: Bilateral crackles, no rhonchi,no wheeze Heart:S1 and S2 regular, no murmurs, rubs or gallop, Abd:soft, non tender, non distended, normal bowel sounds Ext: No edema, no clubbing or cyanosis Neuro: Intubated, sedated - Constitutional Vitals: Temp Pulse Resp BP Pulse Ox 99 F 103 H 30 H 112/77 94 03/12/18 03:00 03/12/18 08:00 03/12/18 08:00 03/12/18 08:00 03/12/18 07:45 General appearance: Present: cachectic, other (chronically ill-appearing) Results - Labs CBC & Chem 7: 03/12/18 06:29 03/12/18 06:29 Labs: Laboratory Last Values WBC 32.7 K/mm3 (4.5-11.0) H 03/12/18 06:29 RBC 3.71 M/mm3 (3.65-5.03) 03/12/18 06:29 Hgb 10.5 gm/dl (11.8-15.2) L 03/12/18 06:29 Hct 31.7 % (35.5-45.6) L 03/12/18 06:29 MCV 86 fl (84-94) 03/12/18 06:29 MCH 28 pg (28-32) 03/12/18 06:29 MCHC 33 % (32-34) 03/12/18 06:29 RDW 15.3 % (13.2-15.2) H 03/12/18 06:29 Plt Count 51 K/mm3 (140-440) L D 03/11/18 23:14 Eos % (Auto) Circulation Tender 03/09/18 07:00 Add Manual Diff Complete 03/11/18 14:48 Total Counted 100 03/11/18 14:48 Seg Neutrophils % Circulation Tender 03/12/18 06:29 Seg Neuts % (Manual) 92.0 % (40.0-70.0) H 03/11/18 14:48 Band Neutrophils % 0 % 03/11/18 14:48 Lymphocytes % (Manual) 4.0 % (13.4-35.0) L 03/11/18 14:48 Reactive Lymphs % (Man) 0 % 03/11/18 14:48 Monocytes % (Manual) 4.0 % (0.0-7.3) 03/11/18 14:48 Eosinophils % (Manual) 0 % (0.0-4.3) 03/11/18 14:48 Basophils % (Manual) 0 % (0.0-1.8) 03/11/18 14:48 Metamyelocytes % 0 % 03/11/18 14:48 Myelocytes % 0 % 03/11/18 14:48 Promyelocytes % 0 % 03/11/18 14:48 Blast Cells % 0 % 03/11/18 14:48 Nucleated RBC % Not Reportable 03/11/18 14:48 Seg Neutrophils # Man 19.5 K/mm3 (1.8-7.7) H 03/11/18 14:48 Band Neutrophils # 0.0 K/mm3 03/11/18 14:48 Lymphocytes # (Manual) 0.8 K/mm3 (1.2-5.4) L 03/11/18 14:48 Abs React Lymphs (Man) 0.0 K/mm3 03/11/18 14:48 Monocytes # (Manual) 0.8 K/mm3 (0.0-0.8) 03/11/18 14:48 Eosinophils # (Manual) 0.0 K/mm3 (0.0-0.4) 03/11/18 14:48 Basophils # (Manual) 0.0 K/mm3 (0.0-0.1) 03/11/18 14:48 Metamyelocytes # 0.0 K/mm3 03/11/18 14:48 Myelocytes # 0.0 K/mm3 03/11/18 14:48 Promyelocytes # 0.0 K/mm3 03/11/18 14:48 Blast Cells # 0.0 K/mm3 03/11/18 14:48 WBC Morphology Not Reportable 03/11/18 14:48 Hypersegmented Neuts Not Reportable 03/11/18 14:48 Hyposegmented Neuts Not Reportable 03/11/18 14:48 Hypogranular Neuts Not Reportable 03/11/18 14:48 Smudge Cells Not Reportable 03/11/18 14:48 Toxic Granulation Not Reportable 03/11/18 14:48 Toxic Vacuolation Not Reportable 03/11/18 14:48 Dohle Bodies Not Reportable 03/11/18 14:48 Pelger-Huet Anomaly Not Reportable 03/11/18 14:48 Kamar Rods Not Reportable 03/11/18 14:48 Platelet Estimate Not Reportable 03/11/18 14:48 Clumped Platelets Not Reportable 03/11/18 14:48 Plt Clumps, EDTA Not Reportable 03/11/18 14:48 Large Platelets Not Reportable 03/11/18 14:48 Giant Platelets Not Reportable 03/11/18 14:48 Platelet Satelliting Not Reportable 03/11/18 14:48 Plt Morphology Comment Not Reportable 03/11/18 14:48 RBC Morphology Normal 03/11/18 14:48 Dimorphic RBCs Not Reportable 03/11/18 14:48 Polychromasia Not Reportable 03/11/18 14:48 Hypochromasia Not Reportable 03/11/18 14:48 Poikilocytosis Not Reportable 03/11/18 14:48 Anisocytosis Not Reportable 03/11/18 14:48 Microcytosis Not Reportable 03/11/18 14:48 Macrocytosis Not Reportable 03/11/18 14:48 Spherocytes Not Reportable 03/11/18 14:48 Pappenheimer Bodies Not Reportable 03/11/18 14:48 Sickle Cells Not Reportable 03/11/18 14:48 Target Cells Not Reportable 03/11/18 14:48 Tear Drop Cells Not Reportable 03/11/18 14:48 Ovalocytes Not Reportable 03/11/18 14:48 Helmet Cells Not Reportable 03/11/18 14:48 Barnes-Yardley Bodies Not Reportable 03/11/18 14:48 [place] Rings Not Reportable 03/11/18 14:48 [place] Cells Not Reportable 03/11/18 14:48 Bite Cells Not Reportable 03/11/18 14:48 Crenated Cell Not Reportable 03/11/18 14:48 Elliptocytes Not Reportable 03/11/18 14:48 Acanthocytes (Spur) Not Reportable 03/11/18 14:48 Rouleaux Not Reportable 03/11/18 14:48 Hemoglobin C Crystals Not Reportable 03/11/18 14:48 Schistocytes Not Reportable 03/11/18 14:48 Malaria parasites Not Reportable 03/11/18 14:48 Jose Bodies Not Reportable 03/11/18 14:48 Hem Pathologist Commnt No 03/11/18 14:48 PT 17.2 Sec. (12.2-14.9) H 03/10/18 18:15 INR 1.36 (0.87-1.13) H 03/10/18 18:15 APTT 38.5 Sec. (24.2-36.6) H 03/10/18 18:15 Fibrinogen 852 mg/dl (211-480) H 03/10/18 18:15 POC ABG pH 7.337 (7.35-7.45) L 03/12/18 07:21 POC ABG pCO2 54.9 (35-45) H 03/12/18 07:21 POC ABG pO2 59 (80-105) L 03/12/18 07:21 POC ABG HCO3 29.4 03/12/18 07:21 POC ABG Total CO2 31 03/12/18 07:21 POC ABG O2 Sat 88 03/12/18 07:21 POC ABG Base Excess 4 03/12/18 07:21 VBG pH 7.297 (7.320-7.420) L 03/09/18 07:00 FiO2 100 % 03/12/18 07:21 Sodium 142 mmol/L (137-145) 03/12/18 06:29 Potassium 3.4 mmol/L (3.6-5.0) L 03/12/18 06:29 Chloride 98.1 mmol/L (98-107) 03/12/18 06:29 Carbon Dioxide 28 mmol/L (22-30) 03/12/18 06:29 Anion Gap 19 mmol/L 03/12/18 06:29 BUN 69 mg/dL (9-20) H 03/12/18 06:29 Creatinine 2.2 mg/dL (0.8-1.5) H 03/12/18 06:29 Estimated GFR 42 ml/min 03/12/18 06:29 BUN/Creatinine Ratio 31 % 03/12/18 06:29 Glucose 181 mg/dL (75-100) H 03/12/18 06:29 POC Glucose 157 (70-105) H 03/12/18 07:44 Lactic Acid 4.10 mmol/L (0.7-2.0) H* 03/10/18 01:00 Calcium 8.4 mg/dL (8.4-10.2) 03/12/18 06:29 Phosphorus 3.60 mg/dL (2.5-4.5) 03/12/18 06:29 Magnesium 2.00 mg/dL (1.7-2.3) 03/11/18 04:50 Total Bilirubin 2.30 mg/dL (0.1-1.2) H 03/12/18 06:29 Direct Bilirubin 1.5 mg/dL (0-0.2) H 03/12/18 06:29 Indirect Bilirubin 0.8 mg/dL 03/12/18 06:29 AST 33 units/L (5-40) 03/12/18 06:29 ALT 48 units/L (7-56) 03/12/18 06:29 Alkaline Phosphatase 111 units/L (35-129) 03/12/18 06:29 Lactate Dehydrogenase 338 units/L (91-180) H 03/10/18 11:16 Total Creatine Kinase 404 units/L (55-170) H 03/10/18 11:16 NT-Pro-B Natriuret Pep 69009 pg/mL (0-450) H 03/10/18 11:16 Total Protein 6.2 g/dL (6.3-8.2) L 03/12/18 06:29 Albumin 3.1 g/dL (3.9-5) L 03/12/18 06:29 Albumin/Globulin Ratio 1.0 % 03/12/18 06:29 Urine Color Red (Yellow) 03/10/18 06:00 Urine Turbidity Cloudy (Clear) 03/10/18 06:00 Urine pH 5.0 (5.0-7.0) 03/10/18 06:00 Ur Specific [place] 1.009 (1.003-1.030) 03/10/18 06:00 Urine Protein 100 mg/dl mg/dL (Negative) 03/10/18 06:00 Urine Glucose (UA) Neg mg/dL (Negative) 03/10/18 06:00 Urine Ketones Neg mg/dL (Negative) 03/10/18 06:00 Urine Blood Lg (Negative) 03/10/18 06:00 Urine Nitrite Neg (Negative) 03/10/18 06:00 Urine Bilirubin Neg (Negative) 03/10/18 06:00 Urine Urobilinogen < 2.0 mg/dL (<2.0) 03/10/18 06:00 Ur Leukocyte Esterase Neg (Negative) 03/10/18 06:00 Urine WBC (Auto) 32.0 /HPF (0.0-6.0) H 03/10/18 06:00 Urine RBC (Auto) > 182.0 /HPF (0.0-6.0) 03/10/18 06:00 U Epithel Cells (Auto) 5.0 /HPF (0-13.0) 03/09/18 14:39 Urine Bacteria (Auto) 2+ /HPF (Negative) 03/10/18 06:00 Urine WBC Clumps Few /HPF 03/09/18 14:39 Amorphous Crystals 3+ 03/10/18 06:00 Granular Casts 29 /LPF 03/10/18 06:00 Urine Creatinine 210.7 mg/dL (0.1-20.0) H 03/09/18 14:39 Protein/Creatinin Ratio 3.89 03/09/18 14:39 Urine Sodium 36 mmol/L 03/09/18 14:39 Urine Total Protein 820 mg/dL (5-11.8) H 03/09/18 14:39 Complement C3 83 mg/dL (82-185) 03/10/18 11:16 Complement C4 30 mg/dL (15-53) 03/10/18 11:16 Hepatitis A IgM Ab Non-reactive (NonReactive) 03/09/18 20:39 Hep Bs Antigen Non-reactive (Negative) 03/09/18 20:39 Hep B Core IgM Ab Non-reactive (NonReactive) 03/09/18 20:39 Hepatitis C Antibody Non-reactive (NonReactive) 03/09/18 20:39 HIV 1&2 Antibody Rapid Reactive (Non React) 03/09/18 20:39 HIV P24 Antigen Non react (Non React) 03/09/18 20:39 Influenza A (Rapid) Negative (Negative) 03/09/18 Unknown Influenza B (Rapid) Negative (Negative) 03/09/18 Unknown Schistocytes Smear Rare 03/10/18 11:16 Blood Type O POSITIVE 03/09/18 12:36 Antibody Screen Negative 03/09/18 12:36
[2018-03-12] MEDS ORDERED: LASIX IV STA (09:19)
[2018-03-12] MEDS: DIPRIVAN 10 MG/ML 1,000 MG/100 ML BOTTLE IV SCH ×5 (09:22→22:45)
[2018-03-12] MEDS: MAXIPIME/NS 2 GM/100 ML 2 GM/100 ML BAG IV SCH (09:24)
[2018-03-12] MEDS: PROTONIX IV SCH (09:24)
--- NOTE | 2018-03-12 09:35 | XRay Report ---
FINAL REPORT EXAM: XR CHEST 1V AP HISTORY: ETT placement COMPARISON: Chest radiograph performed on 03/09/2017 TECHNIQUE: Single frontal view of the chest FINDINGS: Endotracheal tube with tip in the midtrachea. The cardiomediastinal silhouette is normal in appearance. There are diffuse bilateral pulmonary opacities. No pleural effusion or pneumothorax. No acute bony or soft tissue abnormality. IMPRESSION: Endotracheal tube with tip in the midtrachea. Diffuse pulmonary opacities, that may reflect ARDS.
[2018-03-12 10:05] LABS: Band Neutrophils # (Manual) 1.3 K/mm3; Basophils % (Manual) 0 % (0.0-1.8); Dohle Bodies 1+; Eosinophils % (Manual) 0 % (0.0-4.3); Monocytes % (Manual) 7.5 % (0.0-7.3); Platelet Estimate Appears Decreased; Total Cells Counted 200
[2018-03-12] MEDS: LASIX IV SCH ×2 (10:38→22:01)
--- NOTE | 2018-03-12 12:25 | Progress Note ---
Assessment and Plan 1. Septic shock currently on multiple pressor agent 2. Respiratory failure 3. Acute renal failure 4. Dilated cardiomyopathy 5. HIV/AIDS Plan. Continue conservative supportive cardiac management. Subjective Date of service: 03/12/18 Principal diagnosis: acute renal failure Interval history: No change in clinical status Objective Vital Signs Temp Pulse Pulse Resp BP Pulse Ox 03/12/18 12:15 103 H 24 104/60 94 03/12/18 12:00 105 H 25 H 108/64 93 03/12/18 11:45 101 H 27 H 107/63 95 03/12/18 11:30 102 H 29 H 111/71 03/12/18 11:16 97 H 109/70 100 03/12/18 11:15 98 H 28 H 109/70 96 03/12/18 11:00 101 H 27 H 109/70 03/12/18 10:45 100 H 26 H 108/68 03/12/18 10:30 100 H 27 H 104/69 95 03/12/18 10:16 101 H 22 100/76 99 03/12/18 10:00 100 H 28 H 109/69 03/12/18 09:45 99 H 27 H 109/68 94 03/12/18 09:30 98 H 30 H 109/71 96 03/12/18 09:15 99 H 27 H 106/71 03/12/18 09:00 99 H 28 H 103/69 95 03/12/18 08:45 100 H 28 H 111/68 03/12/18 08:30 99 H 29 H 108/71 95 03/12/18 08:15 97 H 26 H 107/63 97 03/12/18 08:00 103 H 91 H 23 112/77 92 03/12/18 07:45 101 H 29 H 114/80 94 03/12/18 07:42 100 H 114/80 95 03/12/18 07:30 105 H 30 H 116/72 90 03/12/18 07:15 107 H 32 H 112/75 91 03/12/18 07:00 105 H 34 H 112/77 86 03/12/18 06:45 107 H 18 104/76 93 03/12/18 06:30 113 H 35 H 107/69 88 03/12/18 06:27 112 H 107/69 93 03/12/18 06:15 121 H 39 H 116/64 94 03/12/18 06:00 113 H 23 100/59 98 03/12/18 05:45 115 H 37 H 100/59 92 03/12/18 05:30 117/77 44 L 03/12/18 05:15 101 H 44 H 117/77 97 03/12/18 05:00 102 H 48 H 112/79 98 03/12/18 04:45 100 H 41 H 111/77 97 03/12/18 04:30 103 H 47 H 111/78 97 03/12/18 04:15 103 H 47 H 110/77 98 03/12/18 04:00 101 H 96 H 41 H 111/77 97 03/12/18 03:45 103 H 41 H 104/75 97 03/12/18 03:30 105 H 43 H 102/77 98 03/12/18 03:25 104 H 38 H 109/78 98 03/12/18 03:15 103 H 42 H 109/78 97 03/12/18 03:00 99 F 111 H 45 H 118/79 94 03/12/18 02:45 113 H 50 H 118/79 88 03/12/18 02:30 149 H 53 H 123/84 03/12/18 02:15 99 H 44 H 121/87 92 03/12/18 02:00 98 H 45 H 115/84 92 03/12/18 01:45 99 H 38 H 115/84 88 03/12/18 01:30 98 H 41 H 119/86 91 03/12/18 01:15 102 H 45 H 122/85 92 03/12/18 01:00 105 H 47 H 121/81 86 03/12/18 00:45 108 H 57 H 125/86 85 03/12/18 00:30 96 H 51 H 111/78 99 03/12/18 00:15 93 H 42 H 117/79 91 03/12/18 00:00 98.8 F 96 H 96 H 43 H 114/80 94 03/11/18 23:52 94 H 43 H 115/82 95 03/11/18 23:45 95 H 45 H 111/80 93 03/11/18 23:30 98 H 44 H 115/82 91 03/11/18 23:15 97 H 49 H 113/83 03/11/18 23:00 100 H 53 H 122/86 88 03/11/18 22:45 99 H 47 H 114/86 92 03/11/18 22:30 97 H 44 H 122/80 88 03/11/18 22:15 98 H 47 H 116/84 90 03/11/18 22:00 99 H 53 H 113/84 90 03/11/18 21:46 104 H 34 H 121/83 90 03/11/18 21:30 108 H 60 H 127/93 89 03/11/18 21:29 108 H 37 H 121/87 93 03/11/18 21:15 101 H 40 H 121/87 91 03/11/18 21:00 107 H 46 H 110/77 90 03/11/18 20:45 103 H 42 H 118/81 91 03/11/18 20:30 102 H 46 H 114/83 85 03/11/18 20:15 97.8 F 94 H 47 H 122/89 94 03/11/18 20:00 100 H 101 H 45 H 121/87 90 03/11/18 19:56 98.5 F 03/11/18 19:46 113 H 24 127/89 85 03/11/18 19:30 101 H 45 H 100/72 95 03/11/18 19:15 98 H 46 H 101/62 87 03/11/18 19:00 97 H 41 H 100/64 88 03/11/18 18:45 97 H 31 H 112/58 87 03/11/18 18:30 106 H 49 H 127/83 82 L 03/11/18 18:16 107 H 34 H 126/84 91 03/11/18 18:00 108 H 49 H 126/84 88 03/11/18 17:45 102 H 21 123/86 88 03/11/18 17:30 100 H 49 H 126/84 89 03/11/18 17:15 101 H 60 H 113/72 91 03/11/18 17:00 110 H 45 H 123/82 84 03/11/18 16:46 108 H 15 120/69 90 03/11/18 16:30 114 H 24 109/83 98 03/11/18 16:15 106 H 56 H 118/87 88 03/11/18 16:00 109 H 100 H 25 H 132/50 94 03/11/18 15:46 108 H 27 H 132/50 80 L 03/11/18 15:30 99 H 52 H 123/90 90 03/11/18 15:15 107 H 54 H 127/92 83 L 03/11/18 15:00 108 H 18 121/93 91 03/11/18 14:45 108 H 20 128/94 84 03/11/18 14:30 106 H 18 126/83 100 03/11/18 14:15 101 H 45 H 127/74 82 L 03/11/18 14:00 107 H 59 H 127/88 88 03/11/18 13:45 111 H 23 126/78 95 03/11/18 13:30 103 H 26 H 107/87 96 03/11/18 13:15 96 H 43 H 102/73 96 03/11/18 13:00 103 H 36 H 118/86 03/11/18 12:46 107 H 18 115/82 93 03/11/18 12:30 95 H 52 H 115/82 89 - Physical Examination General: Cachectic, Other (Intubated and sedated) HEENT: Positive: PERRL Neck: Positive: neck supple. Negative: JVD/HJR Cardiac: Positive: Reg Rate and Rhythm, Regular Rate, S1/S2, S3, S4, PMI, Dilated, Laterally Displaced Lungs: Positive: Decreased Breath Sounds, Rales, Rhonchi Neuro: Positive: Other (sedated and unresponsive) Abdomen: Positive: Soft Skin: Positive: Clear Extremities: Absent: edema - Labs and Meds Cardiac Enzymes 03/12/18 Range/Units 06:29 AST 33 (5-40) units/L CBC 03/11/18 03/11/18 03/12/18 Range/Units 14:48 23:14 06:29 WBC 21.2 H 29.6 H 32.7 H (4.5-11.0) K/mm3 RBC 3.92 3.74 3.71 (3.65-5.03) M/mm3 Hgb 11.0 L 10.6 L 10.5 L (11.8-15.2) gm/dl Hct 33.8 L 31.3 L 31.7 L (35.5-45.6) % Plt Count 15 L* 51 L D (140-440) K/mm3 Comprehensive Metabolic Panel 03/12/18 03/12/18 Range/Units 06:29 06:29 Sodium 142 (137-145) mmol/L Potassium 3.4 L (3.6-5.0) mmol/L Chloride 98.1 (98-107) mmol/L Carbon Dioxide 28 (22-30) mmol/L BUN 69 H (9-20) mg/dL Creatinine 2.2 H (0.8-1.5) mg/dL Glucose 181 H (75-100) mg/dL Calcium 8.4 (8.4-10.2) mg/dL Direct Bilirubin 1.5 H (0-0.2) mg/dL Indirect Bilirubin 0.8 mg/dL AST 33 (5-40) units/L ALT 48 (7-56) units/L Alkaline Phosphatase 111 (35-129) units/L Total Protein 6.2 L (6.3-8.2) g/dL Albumin 3.1 L (3.9-5) g/dL
[2018-03-12 12:42] LABS: Mean Platelet Volume 8.4 fl (6-12); Platelet Count 34 K/mm3 (140-440)
[2018-03-12] MEDS ORDERED: SODIUM BICARBONATE FEEDTUBE PRN (12:58)
[2018-03-12] MEDS ORDERED: PANCREAZE DR 10,500 UNIT FEEDTUBE PRN (12:58)
[2018-03-12] MEDS ORDERED: SIMPLE SYRUP FEEDTUBE PRN ×2 (12:58)
--- NOTE | 2018-03-12 13:18 | Progress Note ---
Assessment and Plan 33 y/o male with thrombocytopenia, renal failure, and hypotension. 1. Pulm-worsening respiratory status. Intubated. ID has started on Empiric PCP therapy. Will bronch patient at bedside tomorrow and send for cytology. Agree with empiric therapy. Already on steroids for thrombocytopenia by Heme. Continue diuretic therapy as well 2. Immune-HIV positive. Only one family member knows. I am going to speak to that family member and ask that he inform the rest of the family of the patient's stats as the mother is having a hard time understanding why he is so sick. 3. Renal-CR is actually improving. Will continue IV lasix therapy. Agree with BID dosing ordered by IMS 4. HEME-remains thrombocytopenic. Heme has started high dose steroids 5. Sedation-will add PRN fentanyl 6. CV-assuming this is new onset systolic heart failure. Will ask cards about dobutamine as they are saying conservative therapy only. 7. GI-will try to feed patient as pressor requirement is coming down 8. Overall prognosis is guarded to poor, given underlying comorbidities. CCT 31 minutes Subjective Date of service: 03/12/18 Principal diagnosis: acute renal failure Interval history: Unfortunately, clinical status worsened and we had to intubate last night. Currently on PEEP of 14. Mother at bedside. On levophed 2 and Vasopressin. S edated with propofol 50. Objective Vital Signs - 12hr 03/12/18 03/12/18 03/12/18 01:15 01:30 01:45 Temperature Pulse Rate 102 H 98 H 99 H Pulse Rate [ From Monitor] Respiratory 45 H 41 H 38 H Rate Blood Pressure 122/85 119/86 115/84 O2 Sat by Pulse 92 91 88 Oximetry 03/12/18 03/12/18 03/12/18 02:00 02:15 02:30 Temperature Pulse Rate 98 H 99 H 149 H Pulse Rate [ From Monitor] Respiratory 45 H 44 H 53 H Rate Blood Pressure 115/84 121/87 123/84 O2 Sat by Pulse 92 92 Oximetry 03/12/18 03/12/18 03/12/18 02:45 03:00 03:15 Temperature 99 F Pulse Rate 113 H 111 H 103 H Pulse Rate [ From Monitor] Respiratory 50 H 45 H 42 H Rate Blood Pressure 118/79 118/79 109/78 O2 Sat by Pulse 88 94 97 Oximetry 03/12/18 03/12/18 03/12/18 03:25 03:30 03:45 Temperature Pulse Rate 104 H 105 H 103 H Pulse Rate [ From Monitor] Respiratory 38 H 43 H 41 H Rate Blood Pressure 109/78 102/77 104/75 O2 Sat by Pulse 98 98 97 Oximetry 03/12/18 03/12/18 03/12/18 04:00 04:15 04:30 Temperature Pulse Rate 101 H 103 H 103 H Pulse Rate [ 96 H From Monitor] Respiratory 41 H 47 H 47 H Rate Blood Pressure 111/77 110/77 111/78 O2 Sat by Pulse 97 98 97 Oximetry 03/12/18 03/12/18 03/12/18 04:45 05:00 05:15 Temperature Pulse Rate 100 H 102 H 101 H Pulse Rate [ From Monitor] Respiratory 41 H 48 H 44 H Rate Blood Pressure 111/77 112/79 117/77 O2 Sat by Pulse 97 98 97 Oximetry 03/12/18 03/12/18 03/12/18 05:30 05:45 06:00 Temperature Pulse Rate 115 H 113 H Pulse Rate [ From Monitor] Respiratory 37 H 23 Rate Blood Pressure 117/77 100/59 100/59 O2 Sat by Pulse 44 L 92 98 Oximetry 03/12/18 03/12/18 03/12/18 06:15 06:27 06:30 Temperature Pulse Rate 121 H 112 H 113 H Pulse Rate [ From Monitor] Respiratory 39 H 35 H Rate Blood Pressure 116/64 107/69 107/69 O2 Sat by Pulse 94 93 88 Oximetry 03/12/18 03/12/18 03/12/18 06:45 07:00 07:15 Temperature Pulse Rate 107 H 105 H 107 H Pulse Rate [ From Monitor] Respiratory 18 34 H 32 H Rate Blood Pressure 104/76 112/77 112/75 O2 Sat by Pulse 93 86 91 Oximetry 03/12/18 03/12/18 03/12/18 07:30 07:42 07:45 Temperature Pulse Rate 105 H 100 H 101 H Pulse Rate [ From Monitor] Respiratory 30 H 29 H Rate Blood Pressure 116/72 114/80 114/80 O2 Sat by Pulse 90 95 94 Oximetry 03/12/18 03/12/18 03/12/18 08:00 08:15 08:30 Temperature Pulse Rate 103 H 97 H 99 H Pulse Rate [ 91 H From Monitor] Respiratory 23 26 H 29 H Rate Blood Pressure 112/77 107/63 108/71 O2 Sat by Pulse 92 97 95 Oximetry 03/12/18 03/12/18 03/12/18 08:45 09:00 09:15 Temperature Pulse Rate 100 H 99 H 99 H Pulse Rate [ From Monitor] Respiratory 28 H 28 H 27 H Rate Blood Pressure 111/68 103/69 106/71 O2 Sat by Pulse 95 Oximetry 03/12/18 03/12/18 03/12/18 09:30 09:45 10:00 Temperature Pulse Rate 98 H 99 H 100 H Pulse Rate [ From Monitor] Respiratory 30 H 27 H 28 H Rate Blood Pressure 109/71 109/68 109/69 O2 Sat by Pulse 96 94 Oximetry 03/12/18 03/12/18 03/12/18 10:16 10:30 10:45 Temperature Pulse Rate 101 H 100 H 100 H Pulse Rate [ From Monitor] Respiratory 22 27 H 26 H Rate Blood Pressure 100/76 104/69 108/68 O2 Sat by Pulse 99 95 Oximetry 03/12/18 03/12/18 03/12/18 11:00 11:15 11:16 Temperature Pulse Rate 101 H 98 H 97 H Pulse Rate [ From Monitor] Respiratory 27 H 28 H Rate Blood Pressure 109/70 109/70 109/70 O2 Sat by Pulse 96 100 Oximetry 03/12/18 03/12/18 03/12/18 11:30 11:45 12:00 Temperature Pulse Rate 102 H 101 H 105 H Pulse Rate [ 99 H From Monitor] Respiratory 29 H 27 H 25 H Rate Blood Pressure 111/71 107/63 108/64 O2 Sat by Pulse 95 93 Oximetry 03/12/18 12:15 Temperature Pulse Rate 103 H Pulse Rate [ From Monitor] Respiratory 24 Rate Blood Pressure 104/60 O2 Sat by Pulse 94 Oximetry Constitutional: comatose (secondary to medication) Eyes: non-icteric ENT: oropharynx dry, other (orally intubated and sedated) Neck: supple Effort: mildly labored Ascultation: Bilateral: rales Percussion: Bilateral: not dull Cardiovascular: other (sinus tach) Gastrointestinal: normoactive bowel sounds, non-tender Neurologic: normal mental status, non-focal exam CBC and BMP: 03/12/18 06:29 03/12/18 06:29 ABG, PT/INR, D-dimer: ABG POC ABG pH 7.337 (7.35-7.45) L 03/12/18 07:21 POC ABG pCO2 54.9 (35-45) H 03/12/18 07:21 POC ABG pO2 59 (80-105) L 03/12/18 07:21 POC ABG HCO3 29.4 03/12/18 07:21 POC ABG Total CO2 31 03/12/18 07:21 POC ABG O2 Sat 88 03/12/18 07:21 PT/INR, D-dimer PT 17.2 Sec. (12.2-14.9) H 03/10/18 18:15 INR 1.36 (0.87-1.13) H 03/10/18 18:15 Abnormal lab findings: Abnormal Labs 03/09/18 03/09/18 03/09/18 07:00 07:00 07:00 WBC Hgb Hct RDW 15.5 H Plt Count 25 L Seg Neuts % (Manual) 90.0 H Lymphocytes % (Manual) 5.0 L Monocytes % (Manual) Seg Neutrophils # Man Lymphocytes # (Manual) 0.4 L Monocytes # (Manual) PT 22.9 H INR 1.98 H APTT Fibrinogen POC ABG pH POC ABG pCO2 POC ABG pO2 VBG pH Sodium 135 L Potassium Chloride 90.8 L Carbon Dioxide 17 L BUN 45 H Creatinine 5.8 H Glucose 72 L POC Glucose Lactic Acid Calcium 7.6 L Phosphorus Magnesium Total Bilirubin Direct Bilirubin Alkaline Phosphatase 154 H Lactate Dehydrogenase Total Creatine Kinase NT-Pro-B Natriuret Pep Total Protein Albumin 3.6 L Urine WBC (Auto) Urine Creatinine Urine Total Protein Complement C3 03/09/18 03/09/18 03/09/18 07:00 07:00 07:00 WBC Hgb Hct RDW Plt Count Seg Neuts % (Manual) Lymphocytes % (Manual) Monocytes % (Manual) Seg Neutrophils # Man Lymphocytes # (Manual) Monocytes # (Manual) PT INR APTT Fibrinogen POC ABG pH POC ABG pCO2 POC ABG pO2 VBG pH 7.297 L Sodium Potassium Chloride Carbon Dioxide BUN Creatinine Glucose POC Glucose Lactic Acid 6.80 H* Calcium Phosphorus 5.40 H Magnesium 1.20 L Total Bilirubin Direct Bilirubin Alkaline Phosphatase Lactate Dehydrogenase Total Creatine Kinase 228 H NT-Pro-B Natriuret Pep Total Protein Albumin Urine WBC (Auto) Urine Creatinine Urine Total Protein Complement C3 03/09/18 03/09/18 03/09/18 09:22 12:36 14:39 WBC Hgb Hct RDW Plt Count Seg Neuts % (Manual) Lymphocytes % (Manual) Monocytes % (Manual) Seg Neutrophils # Man Lymphocytes # (Manual) Monocytes # (Manual) PT INR APTT Fibrinogen POC ABG pH POC ABG pCO2 POC ABG pO2 VBG pH Sodium Potassium Chloride Carbon Dioxide BUN Creatinine Glucose POC Glucose Lactic Acid 5.90 H* 8.30 H* Calcium Phosphorus Magnesium Total Bilirubin Direct Bilirubin Alkaline Phosphatase Lactate Dehydrogenase Total Creatine Kinase NT-Pro-B Natriuret Pep Total Protein Albumin Urine WBC (Auto) 86.0 H Urine Creatinine Urine Total Protein Complement C3 03/09/18 03/09/18 03/09/18 14:39 14:39 15:12 WBC Hgb Hct RDW Plt Count Seg Neuts % (Manual) Lymphocytes % (Manual) Monocytes % (Manual) Seg Neutrophils # Man Lymphocytes # (Manual) Monocytes # (Manual) PT INR APTT Fibrinogen POC ABG pH POC ABG pCO2 POC ABG pO2 VBG pH Sodium Potassium Chloride Carbon Dioxide BUN Creatinine Glucose POC Glucose Lactic Acid 5.90 H* Calcium Phosphorus Magnesium Total Bilirubin Direct Bilirubin Alkaline Phosphatase Lactate Dehydrogenase Total Creatine Kinase NT-Pro-B Natriuret Pep Total Protein Albumin Urine WBC (Auto) Urine Creatinine 217.1 H 210.7 H Urine Total Protein 820 H Complement C3 03/09/18 03/09/18 03/09/18 15:53 18:20 20:39 WBC Hgb Hct RDW Plt Count Seg Neuts % (Manual) Lymphocytes % (Manual) Monocytes % (Manual) Seg Neutrophils # Man Lymphocytes # (Manual) Monocytes # (Manual) PT INR APTT Fibrinogen POC ABG pH POC ABG pCO2 POC ABG pO2 VBG pH Sodium Potassium Chloride Carbon Dioxide BUN Creatinine Glucose POC Glucose 56 L Lactic Acid 5.10 H* 4.40 H* Calcium Phosphorus Magnesium Total Bilirubin Direct Bilirubin Alkaline Phosphatase Lactate Dehydrogenase Total Creatine Kinase NT-Pro-B Natriuret Pep Total Protein Albumin Urine WBC (Auto) Urine Creatinine Urine Total Protein Complement C3 03/09/18 03/09/18 03/09/18 20:39 21:33 23:08 WBC Hgb Hct RDW Plt Count Seg Neuts % (Manual) Lymphocytes % (Manual) Monocytes % (Manual) Seg Neutrophils # Man Lymphocytes # (Manual) Monocytes # (Manual) PT INR APTT Fibrinogen POC ABG pH POC ABG pCO2 POC ABG pO2 VBG pH Sodium Potassium Chloride Carbon Dioxide BUN Creatinine Glucose POC Glucose Lactic Acid 4.90 H* 4.10 H* Calcium Phosphorus Magnesium Total Bilirubin Direct Bilirubin Alkaline Phosphatase Lactate Dehydrogenase Total Creatine Kinase NT-Pro-B Natriuret Pep Total Protein Albumin Urine WBC (Auto) Urine Creatinine Urine Total Protein Complement C3 77 L 03/10/18 03/10/18 03/10/18 01:00 04:40 04:40 WBC 11.8 H Hgb 11.7 L Hct RDW Plt Count 8 L* Seg Neuts % (Manual) 93.0 H Lymphocytes % (Manual) 4.0 L Monocytes % (Manual) Seg Neutrophils # Man 11.0 H Lymphocytes # (Manual) 0.5 L Monocytes # (Manual) PT INR APTT Fibrinogen POC ABG pH POC ABG pCO2 POC ABG pO2 VBG pH Sodium 136 L Potassium Chloride 96.6 L Carbon Dioxide 21 L BUN 62 H Creatinine 4.9 H Glucose POC Glucose Lactic Acid 4.10 H* Calcium 6.2 L D Phosphorus Magnesium Total Bilirubin Direct Bilirubin Alkaline Phosphatase Lactate Dehydrogenase Total Creatine Kinase NT-Pro-B Natriuret Pep Total Protein Albumin Urine WBC (Auto) Urine Creatinine Urine Total Protein Complement C3 03/10/18 03/10/18 03/10/18 05:32 06:00 09:10 WBC Hgb Hct RDW Plt Count Seg Neuts % (Manual) Lymphocytes % (Manual) Monocytes % (Manual) Seg Neutrophils # Man Lymphocytes # (Manual) Monocytes # (Manual) PT INR APTT Fibrinogen POC ABG pH 7.254 L POC ABG pCO2 47.8 H POC ABG pO2 59 L VBG pH Sodium Potassium Chloride Carbon Dioxide BUN Creatinine Glucose POC Glucose 56 L Lactic Acid Calcium Phosphorus Magnesium Total Bilirubin Direct Bilirubin Alkaline Phosphatase Lactate Dehydrogenase Total Creatine Kinase NT-Pro-B Natriuret Pep Total Protein Albumin Urine WBC (Auto) 32.0 H Urine Creatinine Urine Total Protein Complement C3 03/10/18 03/10/18 03/10/18 09:14 11:16 11:16 WBC Hgb Hct RDW Plt Count Seg Neuts % (Manual) Lymphocytes % (Manual) Monocytes % (Manual) Seg Neutrophils # Man Lymphocytes # (Manual) Monocytes # (Manual) PT INR APTT Fibrinogen POC ABG pH 7.266 L POC ABG pCO2 POC ABG pO2 VBG pH Sodium Potassium Chloride Carbon Dioxide BUN Creatinine Glucose POC Glucose Lactic Acid Calcium Phosphorus Magnesium Total Bilirubin Direct Bilirubin Alkaline Phosphatase Lactate Dehydrogenase 338 H Total Creatine Kinase 404 H NT-Pro-B Natriuret Pep 07739 H Total Protein Albumin Urine WBC (Auto) Urine Creatinine Urine Total Protein Complement C3 03/10/18 03/10/18 03/10/18 11:51 18:15 18:15 WBC Hgb Hct RDW Plt Count Seg Neuts % (Manual) Lymphocytes % (Manual) Monocytes % (Manual) Seg Neutrophils # Man Lymphocytes # (Manual) Monocytes # (Manual) PT 17.2 H 17.0 H INR 1.36 H 1.34 H APTT 38.5 H Fibrinogen 852 H POC ABG pH POC ABG pCO2 POC ABG pO2 VBG pH Sodium Potassium Chloride Carbon Dioxide BUN Creatinine Glucose POC Glucose 109 H Lactic Acid Calcium Phosphorus Magnesium Total Bilirubin Direct Bilirubin Alkaline Phosphatase Lactate Dehydrogenase Total Creatine Kinase NT-Pro-B Natriuret Pep Total Protein Albumin Urine WBC (Auto) Urine Creatinine Urine Total Protein Complement C3 03/10/18 03/10/18 03/10/18 19:45 20:40 22:07 WBC Hgb Hct RDW Plt Count Seg Neuts % (Manual) Lymphocytes % (Manual) Monocytes % (Manual) Seg Neutrophils # Man Lymphocytes # (Manual) Monocytes # (Manual) PT INR APTT Fibrinogen POC ABG pH POC ABG pCO2 POC ABG pO2 VBG pH Sodium Potassium Chloride Carbon Dioxide BUN Creatinine Glucose POC Glucose 136 H 135 H 135 H Lactic Acid Calcium Phosphorus Magnesium Total Bilirubin Direct Bilirubin Alkaline Phosphatase Lactate Dehydrogenase Total Creatine Kinase NT-Pro-B Natriuret Pep Total Protein Albumin Urine WBC (Auto) Urine Creatinine Urine Total Protein Complement C3 03/10/18 03/11/18 03/11/18 23:06 00:07 02:01 WBC Hgb Hct RDW Plt Count Seg Neuts % (Manual) Lymphocytes % (Manual) Monocytes % (Manual) Seg Neutrophils # Man Lymphocytes # (Manual) Monocytes # (Manual) PT INR APTT Fibrinogen POC ABG pH POC ABG pCO2 POC ABG pO2 VBG pH Sodium Potassium Chloride Carbon Dioxide BUN Creatinine Glucose POC Glucose 133 H 148 H 161 H Lactic Acid Calcium Phosphorus Magnesium Total Bilirubin Direct Bilirubin Alkaline Phosphatase Lactate Dehydrogenase Total Creatine Kinase NT-Pro-B Natriuret Pep Total Protein Albumin Urine WBC (Auto) Urine Creatinine Urine Total Protein Complement C3 03/11/18 03/11/18 03/11/18 03:10 04:12 04:50 WBC 12.8 H Hgb 10.9 L Hct 32.5 L RDW 15.3 H Plt Count 17 L* D Seg Neuts % (Manual) 96.0 H Lymphocytes % (Manual) 2.0 L Monocytes % (Manual) Seg Neutrophils # Man 12.3 H Lymphocytes # (Manual) 0.3 L Monocytes # (Manual) PT INR APTT Fibrinogen POC ABG pH POC ABG pCO2 POC ABG pO2 VBG pH Sodium Potassium Chloride Carbon Dioxide BUN Creatinine Glucose POC Glucose 189 H 188 H Lactic Acid Calcium Phosphorus Magnesium Total Bilirubin Direct Bilirubin Alkaline Phosphatase Lactate Dehydrogenase Total Creatine Kinase NT-Pro-B Natriuret Pep Total Protein Albumin Urine WBC (Auto) Urine Creatinine Urine Total Protein Complement C3 03/11/18 03/11/18 03/11/18 04:50 05:30 05:33 WBC Hgb Hct RDW Plt Count Seg Neuts % (Manual) Lymphocytes % (Manual) Monocytes % (Manual) Seg Neutrophils # Man Lymphocytes # (Manual) Monocytes # (Manual) PT INR APTT Fibrinogen POC ABG pH POC ABG pCO2 POC ABG pO2 58 L VBG pH Sodium Potassium Chloride 94.2 L Carbon Dioxide BUN 62 H Creatinine 2.7 H Glucose 191 H POC Glucose 187 H Lactic Acid Calcium 7.9 L D Phosphorus Magnesium Total Bilirubin Direct Bilirubin Alkaline Phosphatase Lactate Dehydrogenase Total Creatine Kinase NT-Pro-B Natriuret Pep Total Protein Albumin Urine WBC (Auto) Urine Creatinine Urine Total Protein Complement C3 03/11/18 03/11/18 03/11/18 07:47 12:11 13:18 WBC Hgb Hct RDW Plt Count Seg Neuts % (Manual) Lymphocytes % (Manual) Monocytes % (Manual) Seg Neutrophils # Man Lymphocytes # (Manual) Monocytes # (Manual) PT INR APTT Fibrinogen POC ABG pH POC ABG pCO2 POC ABG pO2 VBG pH Sodium Potassium Chloride Carbon Dioxide BUN Creatinine Glucose POC Glucose 151 H 166 H 157 H Lactic Acid Calcium Phosphorus Magnesium Total Bilirubin Direct Bilirubin Alkaline Phosphatase Lactate Dehydrogenase Total Creatine Kinase NT-Pro-B Natriuret Pep Total Protein Albumin Urine WBC (Auto) Urine Creatinine Urine Total Protein Complement C3 03/11/18 03/11/18 03/11/18 14:26 14:48 15:15 WBC 21.2 H Hgb 11.0 L Hct 33.8 L RDW Plt Count 15 L* Seg Neuts % (Manual) 92.0 H Lymphocytes % (Manual) 4.0 L Monocytes % (Manual) Seg Neutrophils # Man 19.5 H Lymphocytes # (Manual) 0.8 L Monocytes # (Manual) PT INR APTT Fibrinogen POC ABG pH POC ABG pCO2 POC ABG pO2 VBG pH Sodium Potassium Chloride Carbon Dioxide BUN Creatinine Glucose POC Glucose 145 H 139 H Lactic Acid Calcium Phosphorus Magnesium Total Bilirubin Direct Bilirubin Alkaline Phosphatase Lactate Dehydrogenase Total Creatine Kinase NT-Pro-B Natriuret Pep Total Protein Albumin Urine WBC (Auto) Urine Creatinine Urine Total Protein Complement C3 03/11/18 03/11/18 03/11/18 16:17 17:48 20:16 WBC Hgb Hct RDW Plt Count Seg Neuts % (Manual) Lymphocytes % (Manual) Monocytes % (Manual) Seg Neutrophils # Man Lymphocytes # (Manual) Monocytes # (Manual) PT INR APTT Fibrinogen POC ABG pH POC ABG pCO2 POC ABG pO2 VBG pH Sodium Potassium Chloride Carbon Dioxide BUN Creatinine Glucose POC Glucose 145 H 142 H 158 H Lactic Acid Calcium Phosphorus Magnesium Total Bilirubin Direct Bilirubin Alkaline Phosphatase Lactate Dehydrogenase Total Creatine Kinase NT-Pro-B Natriuret Pep Total Protein Albumin Urine WBC (Auto) Urine Creatinine Urine Total Protein Complement C3 03/11/18 03/11/18 03/12/18 21:02 23:14 00:54 WBC 29.6 H Hgb 10.6 L Hct 31.3 L RDW Plt Count 51 L D Seg Neuts % (Manual) Lymphocytes % (Manual) Monocytes % (Manual) Seg Neutrophils # Man Lymphocytes # (Manual) Monocytes # (Manual) PT INR APTT Fibrinogen POC ABG pH POC ABG pCO2 POC ABG pO2 VBG pH Sodium Potassium Chloride Carbon Dioxide BUN Creatinine Glucose POC Glucose 146 H 168 H Lactic Acid Calcium Phosphorus Magnesium Total Bilirubin Direct Bilirubin Alkaline Phosphatase Lactate Dehydrogenase Total Creatine Kinase NT-Pro-B Natriuret Pep Total Protein Albumin Urine WBC (Auto) Urine Creatinine Urine Total Protein Complement C3 03/12/18 03/12/18 03/12/18 06:19 06:29 06:29 WBC 32.7 H Hgb 10.5 L Hct 31.7 L RDW 15.3 H Plt Count 34 L Seg Neuts % (Manual) 81.5 H Lymphocytes % (Manual) 7.0 L Monocytes % (Manual) 7.5 H Seg Neutrophils # Man 26.7 H Lymphocytes # (Manual) Monocytes # (Manual) 2.5 H PT INR APTT Fibrinogen POC ABG pH POC ABG pCO2 POC ABG pO2 VBG pH Sodium Potassium 3.4 L Chloride Carbon Dioxide BUN 69 H Creatinine 2.2 H Glucose 181 H POC Glucose 185 H Lactic Acid Calcium Phosphorus Magnesium Total Bilirubin Direct Bilirubin Alkaline Phosphatase Lactate Dehydrogenase Total Creatine Kinase NT-Pro-B Natriuret Pep Total Protein Albumin Urine WBC (Auto) Urine Creatinine Urine Total Protein Complement C3 03/12/18 03/12/18 03/12/18 06:29 07:21 07:44 WBC Hgb Hct RDW Plt Count Seg Neuts % (Manual) Lymphocytes % (Manual) Monocytes % (Manual) Seg Neutrophils # Man Lymphocytes # (Manual) Monocytes # (Manual) PT INR APTT Fibrinogen POC ABG pH 7.337 L POC ABG pCO2 54.9 H POC ABG pO2 59 L VBG pH Sodium Potassium Chloride Carbon Dioxide BUN Creatinine Glucose POC Glucose 157 H Lactic Acid Calcium Phosphorus Magnesium Total Bilirubin 2.30 H Direct Bilirubin 1.5 H Alkaline Phosphatase Lactate Dehydrogenase Total Creatine Kinase NT-Pro-B Natriuret Pep Total Protein 6.2 L Albumin 3.1 L Urine WBC (Auto) Urine Creatinine Urine Total Protein Complement C3 03/12/18 12:53 WBC Hgb Hct RDW Plt Count Seg Neuts % (Manual) Lymphocytes % (Manual) Monocytes % (Manual) Seg Neutrophils # Man Lymphocytes # (Manual) Monocytes # (Manual) PT INR APTT Fibrinogen POC ABG pH POC ABG pCO2 POC ABG pO2 VBG pH Sodium Potassium Chloride Carbon Dioxide BUN Creatinine Glucose POC Glucose 148 H Lactic Acid Calcium Phosphorus Magnesium Total Bilirubin Direct Bilirubin Alkaline Phosphatase Lactate Dehydrogenase Total Creatine Kinase NT-Pro-B Natriuret Pep Total Protein Albumin Urine WBC (Auto) Urine Creatinine Urine Total Protein Complement C3
--- NOTE | 2018-03-12 15:05 | Progress Note ---
Assessment and Plan Acute renal failure, prerenal azotemia vs. 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, DIC, secondary GN/vascultitis work up pending, hematology consulted, f/u recs - Calculated protein cr ratio was nephrotic range at 3.9 g, f/u vasculitis/GN labs - C3, C4, hepatitis panel -> negative - HIV 1&2 rapid antibody was reactive, ID on board, additional testing ordered - Replete potassium - Started on Lasix 40 mg IV BID - Renal US negative hydronephrosis - Cardiology, Hematology, Pulmonology, and ID on board - On pressors - Renally dose meds - Strict intake and output - Renal plan d/w Dr Walsh Subjective Date of service: 03/12/18 Principal diagnosis: acute renal failure Interval history: Pt seen in ICU intubated and sedated on ventilator, mother at bedside, updated on renal plan Objective - Vital Signs Vital signs: Vital Signs - 12hr 03/12/18 03/12/18 03/12/18 03:15 03:25 03:30 Pulse Rate 103 H 104 H 105 H Pulse Rate [ From Monitor] Respiratory 42 H 38 H 43 H Rate Blood Pressure 109/78 109/78 102/77 O2 Sat by Pulse 97 98 98 Oximetry 03/12/18 03/12/18 03/12/18 03:45 04:00 04:15 Pulse Rate 103 H 101 H 103 H Pulse Rate [ 96 H From Monitor] Respiratory 41 H 41 H 47 H Rate Blood Pressure 104/75 111/77 110/77 O2 Sat by Pulse 97 97 98 Oximetry 03/12/18 03/12/18 03/12/18 04:30 04:45 05:00 Pulse Rate 103 H 100 H 102 H Pulse Rate [ From Monitor] Respiratory 47 H 41 H 48 H Rate Blood Pressure 111/78 111/77 112/79 O2 Sat by Pulse 97 97 98 Oximetry 03/12/18 03/12/18 03/12/18 05:15 05:30 05:45 Pulse Rate 101 H 115 H Pulse Rate [ From Monitor] Respiratory 44 H 37 H Rate Blood Pressure 117/77 117/77 100/59 O2 Sat by Pulse 97 44 L 92 Oximetry 03/12/18 03/12/18 03/12/18 06:00 06:15 06:27 Pulse Rate 113 H 121 H 112 H Pulse Rate [ From Monitor] Respiratory 23 39 H Rate Blood Pressure 100/59 116/64 107/69 O2 Sat by Pulse 98 94 93 Oximetry 03/12/18 03/12/18 03/12/18 06:30 06:45 07:00 Pulse Rate 113 H 107 H 105 H Pulse Rate [ From Monitor] Respiratory 35 H 18 34 H Rate Blood Pressure 107/69 104/76 112/77 O2 Sat by Pulse 88 93 86 Oximetry 03/12/18 03/12/18 03/12/18 07:15 07:30 07:42 Pulse Rate 107 H 105 H 100 H Pulse Rate [ From Monitor] Respiratory 32 H 30 H Rate Blood Pressure 112/75 116/72 114/80 O2 Sat by Pulse 91 90 95 Oximetry 03/12/18 03/12/18 03/12/18 07:45 08:00 08:15 Pulse Rate 101 H 103 H 97 H Pulse Rate [ 91 H From Monitor] Respiratory 29 H 23 26 H Rate Blood Pressure 114/80 112/77 107/63 O2 Sat by Pulse 94 92 97 Oximetry 03/12/18 03/12/18 03/12/18 08:30 08:45 09:00 Pulse Rate 99 H 100 H 99 H Pulse Rate [ From Monitor] Respiratory 29 H 28 H 28 H Rate Blood Pressure 108/71 111/68 103/69 O2 Sat by Pulse 95 95 Oximetry 03/12/18 03/12/18 03/12/18 09:15 09:30 09:45 Pulse Rate 99 H 98 H 99 H Pulse Rate [ From Monitor] Respiratory 27 H 30 H 27 H Rate Blood Pressure 106/71 109/71 109/68 O2 Sat by Pulse 96 94 Oximetry 03/12/18 03/12/18 03/12/18 10:00 10:16 10:30 Pulse Rate 100 H 101 H 100 H Pulse Rate [ From Monitor] Respiratory 28 H 22 27 H Rate Blood Pressure 109/69 100/76 104/69 O2 Sat by Pulse 99 95 Oximetry 03/12/18 03/12/18 03/12/18 10:45 11:00 11:15 Pulse Rate 100 H 101 H 98 H Pulse Rate [ From Monitor] Respiratory 26 H 27 H 28 H Rate Blood Pressure 108/68 109/70 109/70 O2 Sat by Pulse 96 Oximetry 03/12/18 03/12/18 03/12/18 11:16 11:30 11:45 Pulse Rate 97 H 102 H 101 H Pulse Rate [ From Monitor] Respiratory 29 H 27 H Rate Blood Pressure 109/70 111/71 107/63 O2 Sat by Pulse 100 95 Oximetry 03/12/18 03/12/18 03/12/18 12:00 12:15 12:30 Pulse Rate 105 H 103 H 101 H Pulse Rate [ 99 H From Monitor] Respiratory 25 H 24 23 Rate Blood Pressure 108/64 104/60 109/60 O2 Sat by Pulse 93 94 Oximetry 03/12/18 03/12/18 03/12/18 12:45 13:00 13:15 Pulse Rate 102 H 101 H 100 H Pulse Rate [ From Monitor] Respiratory 21 22 21 Rate Blood Pressure 104/62 110/61 105/62 O2 Sat by Pulse 92 93 Oximetry 03/12/18 03/12/18 03/12/18 13:30 13:45 14:00 Pulse Rate 100 H 99 H 101 H Pulse Rate [ From Monitor] Respiratory 23 21 21 Rate Blood Pressure 103/65 107/65 109/56 O2 Sat by Pulse 92 94 93 Oximetry 03/12/18 14:15 Pulse Rate 100 H Pulse Rate [ From Monitor] Respiratory 22 Rate Blood Pressure 103/60 O2 Sat by Pulse 93 Oximetry - General Appearance General appearance: sedated on ventilator, intubated EENT: ATNC Neck: no JVD Respiratory: Present: Decreased Breath Sounds (intubated) Cardiology: regular, S1S2 Gastrointestinal: normoactive bowel sounds (Dobhoff tube intact) Integumentary: warm and dry Neurologic: other (intubated and sedated on ventilator) Musculoskeletal: other (Trace edema to BLE) Psychiatric: other (unable to assess) - Lab 03/12/18 06:29 03/12/18 06:29 Most recent lab results Calcium 8.4 mg/dL (8.4-10.2) 03/12/18 06:29 Phosphorus 3.60 mg/dL (2.5-4.5) 03/12/18 06:29 Magnesium 2.00 mg/dL (1.7-2.3) 03/11/18 04:50 Urine Creatinine 210.7 mg/dL (0.1-20.0) H 03/09/18 14:39 Urine Sodium 36 mmol/L 03/09/18 14:39 Urine Total Protein 820 mg/dL (5-11.8) H 03/09/18 14:39 Medications & Allergies - Medications Allergies/Adverse Reactions: Allergies clindamycin Allergy (Verified 03/09/18 06:43) Swelling Home Medications: Home Medications Medication Instructions Recorded Confirmed Last Taken Type No Known Home Medications [No 03/09/18 03/09/18 Unknown History Reported Home Medications] Active Medications: Generic Name Dose Route Start Last Admin Trade Name Freq PRN Reason Stop Dose Admin Lipase/Protease/Amylase 1 each 03/12/18 12:[address] 10,500 Unit FEEDTUBE PRN PRN For Clogged Feeding Tube Atovaquone 1,500 mg 03/11/18 20:00 03/11/18 21:16 Mepron PO 1,500 mg QDAY LIU Administration Dextrose 50 ml 03/09/18 16:15 D50w (25gm) Syringe IV PRN PRN HYPOGLYCEMIA Furosemide 40 mg 03/12/18 10:00 03/12/18 10:38 Lasix IV 40 mg Q12H LIU Administration Haloperidol Lactate 5 mg 03/12/18 02:15 03/12/18 02:41 Haldol IV 5 mg Q6H PRN Administration Agitation Hydrophilic Ointment 1 applic 03/12/18 07:47 Vaseline Lip Therapy TP Q2HR PRN Dry Lips Norepinephrine 4 mg in 250 mls @ 7.5 mls/hr 03/09/18 23:45 03/12/18 13:57 Levophed Drip 4 Mg/Ns 250 Ml IV 0 mcg/min TITR LIU 0 mls/hr Titration Protocol 2 MCG/MIN Vasopressin 20 unit/ Sodium 101 mls @ 9.09 mls/hr 03/10/18 11:00 03/12/18 04:09 Chloride IV 0.03 units/min TITR LIU 9.09 mls/hr Administration Protocol 0.03 UNITS/MIN Cefepime HCl 2 gm in 100 mls @ 200 mls/hr 03/10/18 11:00 03/12/18 09:24 Maxipime/Ns 2 Gm/100 Ml IV 200 mls/hr Q24HR LIU Administration Dextrose 1,000 mls @ 42 mls/hr 03/10/18 11:00 03/11/18 16:29 D10w IV 42 mls/hr DIRECT LIU Administration Dexamethasone 20 mg/ Sodium 55 mls @ 100 mls/hr 03/11/18 11:30 03/12/18 10:53 Chloride IV 100 mls/hr Q12HR LIU Administration Propofol 1,000 mg in 100 mls @ 2.721 mls/hr 03/12/18 08:00 03/12/18 11:26 Diprivan 10 Mg/Ml IV 50 mcg/kg/min TITR LIU 27.21 mls/hr Administration Protocol 5 MCG/KG/MIN Lorazepam 1 mg 03/11/18 16:56 03/12/18 07:32 Ativan IV 1 mg Q4H PRN Administration Anxiety Morphine Sulfate 1 mg 03/11/18 16:56 03/12/18 14:42 Morphine IV 1 mg Q4H PRN Administration Pain, Moderate (4-6) Multi-Ingred Cream/Lotion/Oil/Oint 1 applic 03/12/18 07:47 Artificial Tears Ophth Oint OU Q4HR PRN Dry Eye(s) Ondansetron HCl 4 mg 03/10/18 19:30 03/12/18 10:39 Zofran IV Not Given Q4H LIU Pantoprazole Sodium 40 mg 03/09/18 13:00 03/12/18 09:24 Protonix IV 40 mg QDAY LIU Administration Simple Syrup 15 ml 03/12/18 12:58 Simple Syrup FEEDTUBE PRN PRN Hypoglycemia Simple Syrup 30 ml 03/12/18 12:58 Simple Syrup FEEDTUBE PRN PRN Hypoglycemia Sodium Bicarbonate 325 mg 03/12/18 12:58 Sodium Bicarbonate FEEDTUBE PRN PRN For Clogged Feeding Tube Sodium Chloride 10 ml 03/09/18 22:00 03/12/18 09:24 Sodium Chloride Flush Syringe 10 Ml IV 10 ml BID LIU Administration Sodium Chloride 10 ml 03/09/18 10:41 Sodium Chloride Flush Syringe 10 Ml IV PRN PRN LINE FLUSH
--- NOTE | 2018-03-12 15:17 | Hem/Onc Progress Note ---
Assessment and Plan 1. Thrombocytopenia. I reviewed the peripheral smear. I spoke to the cath lab tech. The laboratory report mentioned no schistocytes. When I reviewed the smear it did not have any schistocytes. Creatinine is elevated. The patient is short of breath. 2. At this time, differential includes some idiopathic thrombocytopenic purpura. Other differentials include immunosuppression related or medication or infection related. The patient's PT, PTT is elevated, but fibrinogen is not low. At admission, chest x-ray was clear and now it has worsened. There is a clinical suspicion of this being infection or disseminated intravascular coagulation or acute respiratory distress syndrome. 3. Renal impairment. 4. Decreased urine output. 5. h/o Shortness of breath. 6. Human immunodeficiency virus, pt was on treatment. 7. discussed with IDT. 8. steroid trial. 9. BNP was elevated. 10. I ordered [id number]. 11. Abnormal liver function tests. 12. Being treated for Haemophilus influenzae. 13. CD4 count 400. I will follow the patient during inpatient stay. 03/11/2018 - d/w dr garrison - low EF pt is on dexa 40 daily s/p plt transfusion no active bleeding 03/12/2018 s/p plt transfusion on dexa intubated d/w lab reg [id number] HIV d/w dr ojeda - Patient Problems (1) Thrombocytopenia Current Visit: Yes Status: Acute Subjective Date of service: 03/12/18 Principal diagnosis: low plt - hiv Interval history: on vent - pressors Objective - Exam Narrative Exam: on vent sedated pressors - Constitutional Vitals: Last Vital Signs Temp 99 F 03/12/18 03:00 Pulse 100 H 03/12/18 14:15 Resp 22 03/12/18 14:15 BP 103/60 03/12/18 14:15 Pulse Ox 93 03/12/18 14:15 Performance status: 4-completely disabled - EENT ENT: other (orally intibated) Lymph node exam: negative cervical, negative supraclavicular - Respiratory Respiratory: bilateral: diminished - Cardiovascular Heart Sounds: Present: S1 & S2 Extremities: No edema - Gastrointestinal General gastrointestinal: Present: soft Rectal Exam: deferred - Genitourinary Male genitourinary: Present: deferred - Musculoskeletal Musculoskeletal: other (sedated) - Labs Lab Results: Laboratory Results - last 24 hr 03/09/18 03/09/1803/09/19 12:36 20:39 20:39 WBC RBC Hgb Hct MCV MCH MCHC RDW Plt Count Add Manual Diff Total Counted Seg Neutrophils % Seg Neuts % (Manual) Band Neutrophils % Lymphocytes % (Manual) Reactive Lymphs % (Man) Monocytes % (Manual) Eosinophils % (Manual) Basophils % (Manual) Metamyelocytes % Myelocytes % Promyelocytes % Blast Cells % Nucleated RBC % Seg Neutrophils # Man Band Neutrophils # Lymphocytes # (Manual) Abs React Lymphs (Man) Monocytes # (Manual) Eosinophils # (Manual) Basophils # (Manual) Metamyelocytes # Myelocytes # Promyelocytes # Blast Cells # WBC Morphology Hypersegmented Neuts Hyposegmented Neuts Hypogranular Neuts Smudge Cells Toxic Granulation Toxic Vacuolation Dohle Bodies Pelger-Huet Anomaly Kamar Rods Platelet Estimate Clumped Platelets Plt Clumps, EDTA Large Platelets Giant Platelets Platelet Satelliting Plt Morphology Comment RBC Morphology Dimorphic RBCs Polychromasia Hypochromasia Poikilocytosis Anisocytosis Microcytosis Macrocytosis Spherocytes Pappenheimer Bodies Sickle Cells Target Cells Tear Drop Cells Ovalocytes Helmet Cells [place] Bodies [place] Lyssa Cells Bite Cells Crenated Cell Elliptocytes Acanthocytes (Spur) Rouleaux Hemoglobin C Crystals Schistocytes Malaria parasites Jose Bodies Hem Pathologist Commnt POC ABG pH POC ABG pCO2 POC ABG pO2 POC ABG HCO3 POC ABG Total CO2 POC ABG O2 Sat POC ABG Base Excess FiO2 Sodium Potassium Chloride Carbon Dioxide Anion Gap BUN Creatinine Estimated GFR BUN/Creatinine Ratio Glucose POC Glucose Calcium Phosphorus Total Bilirubin Direct Bilirubin Indirect Bilirubin AST ALT Alkaline Phosphatase Total Protein Albumin Albumin/Globulin Ratio Complement C3 77 L Complement C4 28 Blood Type O POSITIVE Antibody Screen Negative 03/10/18 03/10/18 03/11/18 11:16 11:16 14:48 WBC 21.2 H RBC 3.92 Hgb 11.0 L Hct 33.8 L MCV 86 MCH 28 MCHC 33 RDW 15.0 Plt Count 15 L* Add Manual Diff Complete Total Counted 100 Seg Neutrophils % Bpo Specialist Seg Neuts % (Manual) 92.0 H Band Neutrophils % 0 Lymphocytes % (Manual) 4.0 L Reactive Lymphs % (Man) 0 Monocytes % (Manual) 4.0 Eosinophils % (Manual) 0 Basophils % (Manual) 0 Metamyelocytes % 0 Myelocytes % 0 Promyelocytes % 0 Blast Cells % 0 Nucleated RBC % Not Reportable Seg Neutrophils # Man 19.5 H Band Neutrophils # 0.0 Lymphocytes # (Manual) 0.8 L Abs React Lymphs (Man) 0.0 Monocytes # (Manual) 0.8 Eosinophils # (Manual) 0.0 Basophils # (Manual) 0.0 Metamyelocytes # 0.0 Myelocytes # 0.0 Promyelocytes # 0.0 Blast Cells # 0.0 WBC Morphology Not Reportable Hypersegmented Neuts Not Reportable Hyposegmented Neuts Not Reportable Hypogranular Neuts Not Reportable Smudge Cells Not Reportable Toxic Granulation Not Reportable Toxic Vacuolation Not Reportable Dohle Bodies Not Reportable Pelger-Huet Anomaly Not Reportable Kamar Rods Not Reportable Platelet Estimate Not Reportable Clumped Platelets Not Reportable Plt Clumps, EDTA Not Reportable Large Platelets Not Reportable Giant Platelets Not Reportable Platelet Satelliting Not Reportable Plt Morphology Comment Not Reportable RBC Morphology Normal Dimorphic RBCs Not Reportable Polychromasia Not Reportable Hypochromasia Not Reportable Poikilocytosis Not Reportable Anisocytosis Not Reportable Microcytosis Not Reportable Macrocytosis Not Reportable Spherocytes Not Reportable Pappenheimer Bodies Not Reportable Sickle Cells Not Reportable Target Cells Not Reportable Tear Drop Cells Not Reportable Ovalocytes Not Reportable Helmet Cells Not Reportable [place] Bodies Not Reportable [place] Not Reportable Lyssa Cells Not Reportable Bite Cells Not Reportable Crenated Cell Not Reportable Elliptocytes Not Reportable Acanthocytes (Spur) Not Reportable Rouleaux Not Reportable Hemoglobin C Crystals Not Reportable Schistocytes Not Reportable Malaria parasites Not Reportable Jose Bodies Not Reportable Hem Pathologist Commnt No POC ABG pH POC ABG pCO2 POC ABG pO2 POC ABG HCO3 POC ABG Total CO2 POC ABG O2 Sat POC ABG Base Excess FiO2 Sodium Potassium Chloride Carbon Dioxide Anion Gap BUN Creatinine Estimated GFR BUN/Creatinine Ratio Glucose POC Glucose Calcium Phosphorus Total Bilirubin Direct Bilirubin Indirect Bilirubin AST ALT Alkaline Phosphatase Total Protein Albumin Albumin/Globulin Ratio Complement C3 83 Complement C4 30 Blood Type Antibody Screen 03/11/18 03/11/18 03/11/18 16:17 17:48 20:16 WBC RBC Hgb Hct MCV MCH MCHC RDW Plt Count Add Manual Diff Total Counted Seg Neutrophils % Seg Neuts % (Manual) Band Neutrophils % Lymphocytes % (Manual) Reactive Lymphs % (Man) Monocytes % (Manual) Eosinophils % (Manual) Basophils % (Manual) Metamyelocytes % Myelocytes % Promyelocytes % Blast Cells % Nucleated RBC % Seg Neutrophils # Man Band Neutrophils # Lymphocytes # (Manual) Abs React Lymphs (Man) Monocytes # (Manual) Eosinophils # (Manual) Basophils # (Manual) Metamyelocytes # Myelocytes # Promyelocytes # Blast Cells # WBC Morphology Hypersegmented Neuts Hyposegmented Neuts Hypogranular Neuts Smudge Cells Toxic Granulation Toxic Vacuolation Dohle Bodies Pelger-Huet Anomaly Kamar Rods Platelet Estimate Clumped Platelets Plt Clumps, EDTA Large Platelets Giant Platelets Platelet Satelliting Plt Morphology Comment RBC Morphology Dimorphic RBCs Polychromasia Hypochromasia Poikilocytosis Anisocytosis Microcytosis Macrocytosis Spherocytes Pappenheimer Bodies Sickle Cells Target Cells Tear Drop Cells Ovalocytes Helmet Cells [place] Bodies [place] Lyssa Cells Bite Cells Crenated Cell Elliptocytes Acanthocytes (Spur) Rouleaux Hemoglobin C Crystals Schistocytes Malaria parasites Jose Bodies Hem Pathologist Commnt POC ABG pH POC ABG pCO2 POC ABG pO2 POC ABG HCO3 POC ABG Total CO2 POC ABG O2 Sat POC ABG Base Excess FiO2 Sodium Potassium Chloride Carbon Dioxide Anion Gap BUN Creatinine Estimated GFR BUN/Creatinine Ratio Glucose POC Glucose 145 H 142 H 158 H Calcium Phosphorus Total Bilirubin Direct Bilirubin Indirect Bilirubin AST ALT Alkaline Phosphatase Total Protein Albumin Albumin/Globulin Ratio Complement C3 Complement C4 Blood Type Antibody Screen 03/11/18 03/11/18 03/12/18 21:02 23:14 00:54 WBC 29.6 H RBC 3.74 Hgb 10.6 L Hct 31.3 L MCV 84 MCH 28 MCHC 34 RDW 14.6 Plt Count 51 L D Add Manual Diff Total Counted Seg Neutrophils % Seg Neuts % (Manual) Band Neutrophils % Lymphocytes % (Manual) Reactive Lymphs % (Man) Monocytes % (Manual) Eosinophils % (Manual) Basophils % (Manual) Metamyelocytes % Myelocytes % Promyelocytes % Blast Cells % Nucleated RBC % Seg Neutrophils # Man Band Neutrophils # Lymphocytes # (Manual) Abs React Lymphs (Man) Monocytes # (Manual) Eosinophils # (Manual) Basophils # (Manual) Metamyelocytes # Myelocytes # Promyelocytes # Blast Cells # WBC Morphology Hypersegmented Neuts Hyposegmented Neuts Hypogranular Neuts Smudge Cells Toxic Granulation Toxic Vacuolation Dohle Bodies Pelger-Huet Anomaly Kamar Rods Platelet Estimate Clumped Platelets Plt Clumps, EDTA Large Platelets Giant Platelets Platelet Satelliting Plt Morphology Comment RBC Morphology Dimorphic RBCs Polychromasia Hypochromasia Poikilocytosis Anisocytosis Microcytosis Macrocytosis Spherocytes Pappenheimer Bodies Sickle Cells Target Cells Tear Drop Cells Ovalocytes Helmet Cells Barnes-[place] Bodies [place] Cells Bite Cells Crenated Cell Elliptocytes Acanthocytes (Spur) Rouleaux Hemoglobin C Crystals Schistocytes Malaria parasites Jose Bodies Hem Pathologist Commnt POC ABG pH POC ABG pCO2 POC ABG pO2 POC ABG HCO3 POC ABG Total CO2 POC ABG O2 Sat POC ABG Base Excess FiO2 Sodium Potassium Chloride Carbon Dioxide Anion Gap BUN Creatinine Estimated GFR BUN/Creatinine Ratio Glucose POC Glucose 146 H 168 H Calcium Phosphorus Total Bilirubin Direct Bilirubin Indirect Bilirubin AST ALT Alkaline Phosphatase Total Protein Albumin Albumin/Globulin Ratio Complement C3 Complement C4 Blood Type Antibody Screen 03/12/18 03/12/18 03/12/18 06:19 06:29 06:29 WBC 32.7 H RBC 3.71 Hgb 10.5 L Hct 31.7 L MCV 86 MCH 28 MCHC 33 RDW 15.3 H Plt Count 34 L Add Manual Diff Complete Total Counted 200 Seg Neutrophils % Bpo Specialist Seg Neuts % (Manual) 81.5 H Band Neutrophils % 4.0 Lymphocytes % (Manual) 7.0 L Reactive Lymphs % (Man) 0 Monocytes % (Manual) 7.5 H Eosinophils % (Manual) 0 Basophils % (Manual) 0 Metamyelocytes % 0 Myelocytes % 0 Promyelocytes % 0 Blast Cells % 0 Nucleated RBC % Not Reportable Seg Neutrophils # Man 26.7 H Band Neutrophils # 1.3 Lymphocytes # (Manual) 2.3 Abs React Lymphs (Man) 0.0 Monocytes # (Manual) 2.5 H Eosinophils # (Manual) 0.0 Basophils # (Manual) 0.0 Metamyelocytes # 0.0 Myelocytes # 0.0 Promyelocytes # 0.0 Blast Cells # 0.0 WBC Morphology Not Reportable Hypersegmented Neuts Not Reportable Hyposegmented Neuts Not Reportable Hypogranular Neuts Not Reportable Smudge Cells Not Reportable Toxic Granulation Not Reportable Toxic Vacuolation Not Reportable Dohle Bodies 1+ Pelger-Huet Anomaly Not Reportable Kamar Rods Not Reportable Platelet Estimate Appears decreased Clumped Platelets Not Reportable Plt Clumps, EDTA Not Reportable Large Platelets Not Reportable Giant Platelets Not Reportable Platelet Satelliting Not Reportable Plt Morphology Comment Not Reportable RBC Morphology Not Reportable Dimorphic RBCs Not Reportable Polychromasia Not Reportable Hypochromasia Not Reportable Poikilocytosis Not Reportable Anisocytosis Not Reportable Microcytosis Not Reportable Macrocytosis Not Reportable Spherocytes Not Reportable Pappenheimer Bodies Not Reportable Sickle Cells Not Reportable Target Cells Not Reportable Tear Drop Cells Not Reportable Ovalocytes Not Reportable Helmet Cells Not Reportable [place] Bodies Not Reportable [place] Not Reportable [place] Cells Not Reportable Bite Cells Not Reportable Crenated Cell Not Reportable Elliptocytes Not Reportable Acanthocytes (Spur) Not Reportable Rouleaux Not Reportable Hemoglobin C Crystals Not Reportable Schistocytes Not Reportable Malaria parasites Not Reportable Jose Bodies Not Reportable Hem Pathologist Commnt Sent to pathology POC ABG pH POC ABG pCO2 POC ABG pO2 POC ABG HCO3 POC ABG Total CO2 POC ABG O2 Sat POC ABG Base Excess FiO2 Sodium 142 Potassium 3.4 L Chloride 98.1 Carbon Dioxide 28 Anion Gap 19 BUN 69 H Creatinine 2.2 H Estimated GFR 42 BUN/Creatinine Ratio 31 Glucose 181 H POC Glucose 185 H Calcium 8.4 Phosphorus 3.60 Total Bilirubin Direct Bilirubin Indirect Bilirubin AST ALT Alkaline Phosphatase Total Protein Albumin Albumin/Globulin Ratio Complement C3 Complement C4 Blood Type Antibody Screen 03/12/18 03/12/18 03/12/18 06:29 07:21 07:44 WBC RBC Hgb Hct MCV MCH MCHC RDW Plt Count Add Manual Diff Total Counted Seg Neutrophils % Seg Neuts % (Manual) Band Neutrophils % Lymphocytes % (Manual) Reactive Lymphs % (Man) Monocytes % (Manual) Eosinophils % (Manual) Basophils % (Manual) Metamyelocytes % Myelocytes % Promyelocytes % Blast Cells % Nucleated RBC % Seg Neutrophils # Man Band Neutrophils # Lymphocytes # (Manual) Abs React Lymphs (Man) Monocytes # (Manual) Eosinophils # (Manual) Basophils # (Manual) Metamyelocytes # Myelocytes # Promyelocytes # Blast Cells # WBC Morphology Hypersegmented Neuts Hyposegmented Neuts Hypogranular Neuts Smudge Cells Toxic Granulation Toxic Vacuolation Dohle Bodies Pelger-Huet Anomaly Kamar Rods Platelet Estimate Clumped Platelets Plt Clumps, EDTA Large Platelets Giant Platelets Platelet Satelliting Plt Morphology Comment RBC Morphology Dimorphic RBCs Polychromasia Hypochromasia Poikilocytosis Anisocytosis Microcytosis Macrocytosis Spherocytes Pappenheimer Bodies Sickle Cells Target Cells Tear Drop Cells Ovalocytes Helmet Cells Barnes-[place] Bodies [place]att Cells Bite Cells Crenated Cell Elliptocytes Acanthocytes (Spur) Rouleaux Hemoglobin C Crystals Schistocytes Malaria parasites Jose Bodies Hem Pathologist Commnt POC ABG pH 7.337 L POC ABG pCO2 54.9 H POC ABG pO2 59 L POC ABG HCO3 29.4 POC ABG Total CO2 31 POC ABG O2 Sat 88 POC ABG Base Excess 4 FiO2 100 Sodium Potassium Chloride Carbon Dioxide Anion Gap BUN Creatinine Estimated GFR BUN/Creatinine Ratio Glucose POC Glucose 157 H Calcium Phosphorus Total Bilirubin 2.30 H Direct Bilirubin 1.5 H Indirect Bilirubin 0.8 AST 33 ALT 48 Alkaline Phosphatase 111 Total Protein 6.2 L Albumin 3.1 L Albumin/Globulin Ratio 1.0 Complement C3 Complement C4 Blood Type Antibody Screen 03/12/18 12:53 WBC RBC Hgb Hct MCV MCH MCHC RDW Plt Count Add Manual Diff Total Counted Seg Neutrophils % Seg Neuts % (Manual) Band Neutrophils % Lymphocytes % (Manual) Reactive Lymphs % (Man) Monocytes % (Manual) Eosinophils % (Manual) Basophils % (Manual) Metamyelocytes % Myelocytes % Promyelocytes % Blast Cells % Nucleated RBC % Seg Neutrophils # Man Band Neutrophils # Lymphocytes # (Manual) Abs React Lymphs (Man) Monocytes # (Manual) Eosinophils # (Manual) Basophils # (Manual) Metamyelocytes # Myelocytes # Promyelocytes # Blast Cells # WBC Morphology Hypersegmented Neuts Hyposegmented Neuts Hypogranular Neuts Smudge Cells Toxic Granulation Toxic Vacuolation Dohle Bodies Pelger-Huet Anomaly Kamar Rods Platelet Estimate Clumped Platelets Plt Clumps, EDTA Large Platelets Giant Platelets Platelet Satelliting Plt Morphology Comment RBC Morphology Dimorphic RBCs Polychromasia Hypochromasia Poikilocytosis Anisocytosis Microcytosis Macrocytosis Spherocytes Pappenheimer Bodies Sickle Cells Target Cells Tear Drop Cells Ovalocytes Helmet Cells Barnes-[place] Bodies [place]att Cells Bite Cells Crenated Cell Elliptocytes Acanthocytes (Spur) Rouleaux Hemoglobin C Crystals Schistocytes Malaria parasites Jose Bodies Hem Pathologist Commnt POC ABG pH POC ABG pCO2 POC ABG pO2 POC ABG HCO3 POC ABG Total CO2 POC ABG O2 Sat POC ABG Base Excess FiO2 Sodium Potassium Chloride Carbon Dioxide Anion Gap BUN Creatinine Estimated GFR BUN/Creatinine Ratio Glucose POC Glucose 148 H Calcium Phosphorus Total Bilirubin Direct Bilirubin Indirect Bilirubin AST ALT Alkaline Phosphatase Total Protein Albumin Albumin/Globulin Ratio Complement C3 Complement C4 Blood Type Antibody Screen Medications & Allergies - Medications Allergies/Adverse Reactions: Allergies clindamycin Allergy (Verified 03/09/18 06:43) Swelling Home Medications: Home Medications Medication Instructions Recorded Confirmed Last Taken Type No Known Home Medications [No 03/09/18 03/09/18 Unknown History Reported Home Medications] Active Medications: Generic Name Dose Route Start Last Admin Trade Name Freq PRN Reason Stop Dose Admin Lipase/Protease/Amylase 1 each 03/12/18 12:[address] 10,500 Unit FEEDTUBE PRN PRN For Clogged Feeding Tube Atovaquone 1,500 mg 03/11/18 20:00 03/11/18 21:16 Mepron PO 1,500 mg QDAY LIU Administration Dextrose 50 ml 03/09/18 16:15 D50w (25gm) Syringe IV PRN PRN HYPOGLYCEMIA Furosemide 40 mg 03/12/18 10:00 03/12/18 10:38 Lasix IV 40 mg Q12H LIU Administration Haloperidol Lactate 5 mg 03/12/18 02:15 03/12/18 02:41 Haldol IV 5 mg Q6H PRN Administration Agitation Hydrophilic Ointment 1 applic 03/12/18 07:47 Vaseline Lip Therapy TP Q2HR PRN Dry Lips Norepinephrine 4 mg in 250 mls @ 7.5 mls/hr 03/09/18 23:45 03/12/18 13:57 Levophed Drip 4 Mg/Ns 250 Ml IV 0 mcg/min TITR LIU 0 mls/hr Titration Protocol 2 MCG/MIN Vasopressin 20 unit/ Sodium 101 mls @ 9.09 mls/hr 03/10/18 11:00 03/12/18 15:10 Chloride IV 0.03 units/min TITR LIU 9.09 mls/hr Administration Protocol 0.03 UNITS/MIN Cefepime HCl 2 gm in 100 mls @ 200 mls/hr 03/10/18 11:00 03/12/18 09:24 Maxipime/Ns 2 Gm/100 Ml IV 200 mls/hr Q24HR LIU Administration Dextrose 1,000 mls @ 42 mls/hr 03/10/18 11:00 03/11/18 16:29 D10w IV 42 mls/hr DIRECT LIU Administration Dexamethasone 20 mg/ Sodium 55 mls @ 100 mls/hr 03/11/18 11:30 03/12/18 10:53 Chloride IV 100 mls/hr Q12HR LIU Administration Propofol 1,000 mg in 100 mls @ 2.721 mls/hr 03/12/18 08:00 03/12/18 15:09 Diprivan 10 Mg/Ml IV 50 mcg/kg/min TITR LIU 27.21 mls/hr Administration Protocol 5 MCG/KG/MIN Lorazepam 1 mg 03/11/18 16:56 03/12/18 07:32 Ativan IV 1 mg Q4H PRN Administration Anxiety Morphine Sulfate 1 mg 03/11/18 16:56 03/12/18 14:42 Morphine IV 1 mg Q4H PRN Administration Pain, Moderate (4-6) Multi-Ingred Cream/Lotion/Oil/Oint 1 applic 03/12/18 07:47 Artificial Tears Ophth Oint OU Q4HR PRN Dry Eye(s) Ondansetron HCl 4 mg 03/10/18 19:30 03/12/18 10:39 Zofran IV Not Given Q4H LIU Pantoprazole Sodium 40 mg 03/09/18 13:00 03/12/18 09:24 Protonix IV 40 mg QDAY LIU Administration Simple Syrup 15 ml 03/12/18 12:58 Simple Syrup FEEDTUBE PRN PRN Hypoglycemia Simple Syrup 30 ml 03/12/18 12:58 Simple Syrup FEEDTUBE PRN PRN Hypoglycemia Sodium Bicarbonate 325 mg 03/12/18 12:58 Sodium Bicarbonate FEEDTUBE PRN PRN For Clogged Feeding Tube Sodium Chloride 10 ml 03/09/18 22:00 03/12/18 09:24 Sodium Chloride Flush Syringe 10 Ml IV 10 ml BID LIU Administration Sodium Chloride 10 ml 03/09/18 10:41 Sodium Chloride Flush Syringe 10 Ml IV PRN PRN LINE FLUSH
[2018-03-12] MEDS ORDERED: KCL 10MEQ/100ML 10 MEQ/100 ML BAG IV SCH (16:00)
[2018-03-12] MEDS ORDERED: KCL 10MEQ/100ML 10 MEQ/100 ML BAG IV ONE (16:20)
--- NOTE | 2018-03-12 16:21 | XRay Report ---
FINAL REPORT EXAM: XR ABDOMEN 1V AP HISTORY: dobhoff placement COMPARISON: None. TECHNIQUE: Single frontal view of the abdomen FINDINGS: Weighted enteric tube with tip in the proximal duodenum. Paucity of bowel gas in the right abdomen. N o free air. No abnormal calcification. No acute bony or soft tissue abnormality. IMPRESSION: Weighted enteric tube with tip in the proximal duodenum. Paucity of bowel gas in the right abdomen, w hich may be due to patient positioning. Attention on follow-up imaging is recommended.
[2018-03-12] MEDS: MEPRON PO SCH (16:32)
[2018-03-13] MEDS: MORPHINE IV PRN ×5 (01:36→23:53)
[2018-03-13] MEDS: DIPRIVAN 10 MG/ML 1,000 MG/100 ML BOTTLE IV SCH ×6 (02:05→23:04)
[2018-03-13] MEDS: Vasostrict 20 UNIT in NACL 0.9% 100 ML IV SCH ×2 (03:21→14:19)
[2018-03-13 06:01] LABS: Hematocrit 29.7 % (35.5-45.6); Hemoglobin 9.8 gm/dl (11.8-15.2); Mean Corpuscular HGB Conc 33 % (32-34); Mean Corpuscular Volume 86 fl (84-94); Red Blood Count 3.45 M/mm3 (3.65-5.03); Red Cell Distribution Width 14.8 % (13.2-15.2)
[2018-03-13 06:15] LABS: Calcium 8.6 mg/dL (8.4-10.2)
[2018-03-13 07:22] LABS: Band Neutrophils # (Manual) 5.9 K/mm3; Basophils % (Manual) 0 % (0.0-1.8); Eosinophils % (Manual) 0 % (0.0-4.3); Total Cells Counted 200
[2018-03-13 07:23] LABS: Anisocytosis 1+; Platelet Estimate Consistent w Auto; Target Cells Few
[2018-03-13 07:24] LABS: Platelet Count 37 K/mm3 (140-440)
[2018-03-13] MEDS: ZOFRAN IV SCH ×5 (08:08→18:45)
--- NOTE | 2018-03-13 08:54 | Progress Note ---
Assessment and Plan Assessment and plan: Septic shock/hypotension Admitted to ICU Now on vasopressin, Off Levophed was on Levophed and Vasopressin Acute respiratory failure worsened, intubated, put on vent 03/12/17 lasix iv Bilateral infiltrates-pulm edema. To r/o PCP pneumonia [facility] Nephrology consulted and has evaluated Discussed with nephrology Improving Cr 1.7 today Sepsis Blood cultures growing Hemophylus haemolyticus Started iv Abx Now on Cefepime ID Physician following Leukocytosis worsening HIV infection. Diagnosed 6 yrs ago was on HAART but been off meds for 2 mths ID Physician following Thrombocytopenia Platelets now 37 after total 5 platelet pheresis. Hematology following On steroids Hyponatremia Hypoglycemia. Cont D10 Coagulopathy, improved Lactic acidosis Metabolic acidosis, resolved Full code status History Interval history: Patient had more shortness of breath, respiratory distress so intubated morning of 03/12/17 Still on Vasopressin, Off Levophed Hospitalist Physical - Physical exam Narrative exam: GEN: Intubated, on Ventilator HEENT: Normocephalic, atraumatic, Neck: supple, No JVD Lungs: Bilateral crackles, no rhonchi,no wheeze Heart:S1 and S2 regular, no murmurs, rubs or gallop, Abd:soft, non tender, non distended, normal bowel sounds Ext: No edema, no clubbing or cyanosis Neuro: Intubated, sedated - Constitutional Vitals: Temp Pulse Resp BP Pulse Ox 99.9 F H 81 20 102/55 95 03/13/18 04:00 03/13/18 08:00 03/13/18 08:00 03/13/18 08:00 03/13/18 08:00 General appearance: Present: cachectic, other (chronically ill-appearing) Results - Labs CBC & Chem 7: 03/13/18 05:22 03/13/18 05:22 Labs: Laboratory Last Values WBC 30.4 K/mm3 (4.5-11.0) H 03/13/18 05:22 RBC 3.45 M/mm3 (3.65-5.03) L 03/13/18 05:22 Hgb 9.8 gm/dl (11.8-15.2) L 03/13/18 05:22 Hct 29.7 % (35.5-45.6) L 03/13/18 05:22 MCV 86 fl (84-94) 03/13/18 05:22 MCH 28 pg (28-32) 03/13/18 05:22 MCHC 33 % (32-34) 03/13/18 05:22 RDW 14.8 % (13.2-15.2) 03/13/18 05:22 Plt Count 37 K/mm3 (140-440) L 03/13/18 05:22 Eos % (Auto) [employer] 03/09/18 07:00 Add Manual Diff Complete 03/13/18 05:22 Total Counted 200 03/13/18 05:22 Seg Neutrophils % [employer] 03/13/18 05:22 Seg Neuts % (Manual) 75.5 % (40.0-70.0) H 03/13/18 05:22 Band Neutrophils % 19.5 % 03/13/18 05:22 Lymphocytes % (Manual) 3.0 % (13.4-35.0) L 03/13/18 05:22 Reactive Lymphs % (Man) 0 % 03/13/18 05:22 Monocytes % (Manual) 2.0 % (0.0-7.3) 03/13/18 05:22 Eosinophils % (Manual) 0 % (0.0-4.3) 03/13/18 05:22 Basophils % (Manual) 0 % (0.0-1.8) 03/13/18 05:22 Metamyelocytes % 0 % 03/13/18 05:22 Myelocytes % 0 % 03/13/18 05:22 Promyelocytes % 0 % 03/13/18 05:22 Blast Cells % 0 % 03/13/18 05:22 Nucleated RBC % Not Reportable 03/13/18 05:22 Seg Neutrophils # Man 23.0 K/mm3 (1.8-7.7) H 03/13/18 05:22 Band Neutrophils # 5.9 K/mm3 03/13/18 05:22 Lymphocytes # (Manual) 0.9 K/mm3 (1.2-5.4) L 03/13/18 05:22 Abs React Lymphs (Man) 0.0 K/mm3 03/13/18 05:22 Monocytes # (Manual) 0.6 K/mm3 (0.0-0.8) 03/13/18 05:22 Eosinophils # (Manual) 0.0 K/mm3 (0.0-0.4) 03/13/18 05:22 Basophils # (Manual) 0.0 K/mm3 (0.0-0.1) 03/13/18 05:22 Metamyelocytes # 0.0 K/mm3 03/13/18 05:22 Myelocytes # 0.0 K/mm3 03/13/18 05:22 Promyelocytes # 0.0 K/mm3 03/13/18 05:22 Blast Cells # 0.0 K/mm3 03/13/18 05:22 WBC Morphology Not Reportable 03/13/18 05:22 Hypersegmented Neuts Not Reportable 03/13/18 05:22 Hyposegmented Neuts Not Reportable 03/13/18 05:22 Hypogranular Neuts Not Reportable 03/13/18 05:22 Smudge Cells Not Reportable 03/13/18 05:22 Toxic Granulation Not Reportable 03/13/18 05:22 Toxic Vacuolation Not Reportable 03/13/18 05:22 Dohle Bodies Not Reportable 03/13/18 05:22 Pelger-Huet Anomaly Not Reportable 03/13/18 05:22 Kamar Rods Not Reportable 03/13/18 05:22 Platelet Estimate Consistent w auto 03/13/18 05:22 Clumped Platelets Not Reportable 03/13/18 05:22 Plt Clumps, EDTA Not Reportable 03/13/18 05:22 Large Platelets Not Reportable 03/13/18 05:22 Giant Platelets Not Reportable 03/13/18 05:22 Platelet Satelliting Not Reportable 03/13/18 05:22 Plt Morphology Comment Not Reportable 03/13/18 05:22 RBC Morphology Not Reportable 03/13/18 05:22 Dimorphic RBCs Not Reportable 03/13/18 05:22 Polychromasia Few 03/13/18 05:22 Hypochromasia Not Reportable 03/13/18 05:22 Poikilocytosis Not Reportable 03/13/18 05:22 Anisocytosis 1+ 03/13/18 05:22 Microcytosis Not Reportable 03/13/18 05:22 Macrocytosis Not Reportable 03/13/18 05:22 Spherocytes Not Reportable 03/13/18 05:22 Pappenheimer Bodies Not Reportable 03/13/18 05:22 Sickle Cells Not Reportable 03/13/18 05:22 Target Cells Few 03/13/18 05:22 Tear Drop Cells Not Reportable 03/13/18 05:22 Ovalocytes Not Reportable 03/13/18 05:22 Helmet Cells Not Reportable 03/13/18 05:22 [place] Bodies Not Reportable 03/13/18 05:22 [place] Rings Not Reportable 03/13/18 05:22 Harris Cells Not Reportable 03/13/18 05:22 Bite Cells Not Reportable 03/13/18 05:22 Crenated Cell Not Reportable 03/13/18 05:22 Elliptocytes Few 03/13/18 05:22 Acanthocytes (Spur) Not Reportable 03/13/18 05:22 Rouleaux Not Reportable 03/13/18 05:22 Hemoglobin C Crystals Not Reportable 03/13/18 05:22 Schistocytes Not Reportable 03/13/18 05:22 Malaria parasites Not Reportable 03/13/18 05:22 Jose Bodies Not Reportable 03/13/18 05:22 Hem Pathologist Commnt No 03/13/18 05:22 PT 17.2 Sec. (12.2-14.9) H 03/10/18 18:15 INR 1.36 (0.87-1.13) H 03/10/18 18:15 APTT 38.5 Sec. (24.2-36.6) H 03/10/18 18:15 Fibrinogen 852 mg/dl (211-480) H 03/10/18 18:15 POC ABG pH 7.410 (7.35-7.45) 03/13/18 04:37 POC ABG pCO2 60.2 (35-45) H 03/13/18 04:37 POC ABG pO2 115 (80-105) H 03/13/18 04:37 POC ABG HCO3 38.2 03/13/18 04:37 POC ABG Total CO2 40 03/13/18 04:37 POC ABG O2 Sat 98 03/13/18 04:37 POC ABG Base Excess 14 03/13/18 04:37 VBG pH 7.297 (7.320-7.420) L 03/09/18 07:00 FiO2 50 % 03/13/18 04:37 Sodium 146 mmol/L (137-145) H 03/13/18 05:22 Potassium 4.3 mmol/L (3.6-5.0) D 03/13/18 05:22 Chloride 101.9 mmol/L (98-107) 03/13/18 05:22 Carbon Dioxide 35 mmol/L (22-30) H D 03/13/18 05:22 Anion Gap 13 mmol/L 03/13/18 05:22 BUN 71 mg/dL (9-20) H 03/13/18 05:22 Creatinine 1.7 mg/dL (0.8-1.5) H 03/13/18 05:22 Estimated GFR 56 ml/min 03/13/18 05:22 BUN/Creatinine Ratio 42 % 03/13/18 05:22 Glucose 187 mg/dL (75-100) H 03/13/18 05:22 POC Glucose 187 (70-105) H 03/13/18 01:14 Lactic Acid 4.10 mmol/L (0.7-2.0) H* 03/10/18 01:00 Calcium 8.6 mg/dL (8.4-10.2) 03/13/18 05:22 Phosphorus 3.70 mg/dL (2.5-4.5) 03/13/18 05:22 Magnesium 2.00 mg/dL (1.7-2.3) 03/11/18 04:50 Total Bilirubin 2.30 mg/dL (0.1-1.2) H 03/12/18 06:29 Direct Bilirubin 1.5 mg/dL (0-0.2) H 03/12/18 06:29 Indirect Bilirubin 0.8 mg/dL 03/12/18 06:29 AST 33 units/L (5-40) 03/12/18 06:29 ALT 48 units/L (7-56) 03/12/18 06:29 Alkaline Phosphatase 111 units/L (35-129) 03/12/18 06:29 Lactate Dehydrogenase 338 units/L (91-180) H 03/10/18 11:16 Total Creatine Kinase 404 units/L (55-170) H 03/10/18 11:16 NT-Pro-B Natriuret Pep 26056 pg/mL (0-450) H 03/10/18 11:16 Total Protein 6.2 g/dL (6.3-8.2) L 03/12/18 06:29 Albumin 3.1 g/dL (3.9-5) L 03/12/18 06:29 Albumin/Globulin Ratio 1.0 % 03/12/18 06:29 Urine Color Red (Yellow) 03/10/18 06:00 Urine Turbidity Cloudy (Clear) 03/10/18 06:00 Urine pH 5.0 (5.0-7.0) 03/10/18 06:00 Ur Specific [place] 1.009 (1.003-1.030) 03/10/18 06:00 Urine Protein 100 mg/dl mg/dL (Negative) 03/10/18 06:00 Urine Glucose (UA) Neg mg/dL (Negative) 03/10/18 06:00 Urine Ketones Neg mg/dL (Negative) 03/10/18 06:00 Urine Blood Lg (Negative) 03/10/18 06:00 Urine Nitrite Neg (Negative) 03/10/18 06:00 Urine Bilirubin Neg (Negative) 03/10/18 06:00 Urine Urobilinogen < 2.0 mg/dL (<2.0) 03/10/18 06:00 Ur Leukocyte Esterase Neg (Negative) 03/10/18 06:00 Urine WBC (Auto) 32.0 /HPF (0.0-6.0) H 03/10/18 06:00 Urine RBC (Auto) > 182.0 /HPF (0.0-6.0) 03/10/18 06:00 U Epithel Cells (Auto) 5.0 /HPF (0-13.0) 03/09/18 14:39 Urine Bacteria (Auto) 2+ /HPF (Negative) 03/10/18 06:00 Urine WBC Clumps Few /HPF 03/09/18 14:39 Amorphous Crystals 3+ 03/10/18 06:00 Granular Casts 29 /LPF 03/10/18 06:00 Urine Creatinine 210.7 mg/dL (0.1-20.0) H 03/09/18 14:39 Protein/Creatinin Ratio 3.89 03/09/18 14:39 Urine Sodium 36 mmol/L 03/09/18 14:39 Urine Total Protein 820 mg/dL (5-11.8) H 03/09/18 14:39 Complement C3 83 mg/dL (82-185) 03/10/18 11:16 Complement C4 30 mg/dL (15-53) 03/10/18 11:16 Hepatitis A IgM Ab Non-reactive (NonReactive) 03/09/18 20:39 Hep Bs Antigen Non-reactive (Negative) 03/09/18 20:39 Hep B Core IgM Ab Non-reactive (NonReactive) 03/09/18 20:39 Hepatitis C Antibody Non-reactive (NonReactive) 03/09/18 20:39 HIV 1&2 Antibody Rapid Reactive (Non React) 03/09/18 20:39 HIV P24 Antigen Non react (Non React) 03/09/18 20:39 Influenza A (Rapid) Negative (Negative) 03/09/18 Unknown Influenza B (Rapid) Negative (Negative) 03/09/18 Unknown Schistocytes Smear Rare 03/10/18 11:16 Blood Type O POSITIVE 03/09/18 12:36 Antibody Screen Negative 03/09/18 12:36 Nutrition/Malnutrition Assess - Dietary Evaluation Nutrition/Malnutrition Findings: Nutrition Notes Start: 03/12/18 12:51 Freq: Status: Active Protocol: Document 03/12/18 12:51 LP (Rec: 03/12/18 12:58 LP [id number]) Nutrition Notes Need for Assessment generated from: MD Order Initial or Follow up Assessment Current Diagnoses Acute Kidney Injury Sepsis Respiratory Failure Other Pertinent Diagnosis HIV Current Diet NPO Labs/Tests K 3.4 BUN 69 Cr 2.2 Total bili 2.3 Medications D10 at 42ml/hr Propofol Height 5 ft 11 in Weight 90.7 kg [place] Body Weight (lbs) 172.0 BMI 27.8 Subjective/Other Information Consult for TF. Pt on vent. Burn Absent Trauma Absent #2 Nutrition Diagnoses Inadequate oral intake Etiology vent As Evidenced by Signs and Symptoms Pt NPO Is patient on ventilator? Yes Is Patient Ambulatory and/or Out of Bed No REE-([facility]-confined to bed) [phone] Calculation Used for Recommendations [facility] Additional Notes Protein needs are 109-181g (1. 2-2g/kg) Fluid needs are 1ml/kcal Nutrition Intervention Change Diet Order: TF Nutrition Support: Osmolite 1.5 at 60ml/hr Flush with 125ml q4h Kcal 2,160 Protein (gm) 90 Fluid (mL) 1,097 Goal #1 Meet at least 80% of kcal and protein needs Anticipated Discharge Needs: Unable to determine at this time Follow-Up By: 03/14/18 Additional Comments Follow for TF start/tolerance
--- NOTE | 2018-03-13 10:22 | Progress Note ---
Assessment and Plan 33 y/o male with thrombocytopenia, renal failure, and hypotension. 1. Pulm-patient likely developed acute pulmonary edema from aggressive volume resuscitation on admission as he was hypotensive and in acute renal failure. After doing an echo, he was found to have an EF of 20-25% which would make sense why he developed the pulmonary edema. He asked us to try bipap therapy as oppose to intubation initially and because of his young age and stamina we waited. He was intubated on Wednesday/night wednesday morning so today is really Day 2 of intubation. oxygenation is improving. ID has elected to empirically treat for PCP with atovoquone given his renal failure. He is already on steroids secondary to his thrombocytopenia. I will attempt to bronch today (pending availability of charge therapist) to send a sample for PCP and if p ositive then we can determine duration of therapy. Will continue BID lasix therapy as cr continues to improve and patient does have evidence of systolic heart failure on most recent echo 2. Immune-HIV positive. Only one family member knows. The mother does not know and she is the person of authority to give consent on procedures, etc. There is one brother who is aware and he was not here yesterday. I am going to ask him to please discuss this with the rest of the family so that we can be open about current clinical state. No current therapy is warranted. Will bronch today for PCP. Continue PCP therapy empirically until stains come back. 3. Renal-CR is actually improving. Will continue IV lasix therapy. Agree with BID dosing ordered by IMS. Renal is following 4. HEME-remains thrombocytopenic. Heme has started high dose steroids. He has received at least 4 total of platelets in the last 72-96 hours. No evidence of spontaneous bleeding. 5. Sedation-will add PRN fentanyl and continue Diprovan drip. Will send triglycerides in the am. 6. CV-assuming this is new onset systolic heart failure. Will ask cards about dobutamine as they are saying conservative therapy only. Still on Vasopressin but levophed is off. Has been getting diuresed. 7. GI-Feeding patient currently and tolerating. Sugars are better with feeds and steroids 8. Overall prognosis is guarded to poor, given underlying comorbidities. CCT 31 minutes Subjective Date of service: 03/13/18 Principal diagnosis: acute renal failure Interval history: No acute events. Oxygenation is improved this am. HR now in the low 80's. People at bedside Objective Vital Signs - 12hr 03/12/18 03/12/18 03/12/18 22:15 22:30 22:45 Temperature Pulse Rate 95 H 94 H 90 Pulse Rate [ From Monitor] Respiratory 20 19 22 Rate Blood Pressure 103/61 101/60 99/50 O2 Sat by Pulse 95 97 95 Oximetry 03/12/18 03/12/18 03/12/18 23:00 23:15 23:29 Temperature Pulse Rate 95 H 92 H 94 H Pulse Rate [ From Monitor] Respiratory 19 20 Rate Blood Pressure 105/49 95/47 94/52 O2 Sat by Pulse 100 96 99 Oximetry 03/12/18 03/12/18 03/13/18 23:30 23:45 00:00 Temperature 99.1 F Pulse Rate 91 H 90 90 Pulse Rate [ 90 From Monitor] Respiratory 20 20 20 Rate Blood Pressure 94/52 94/51 90/54 O2 Sat by Pulse 96 96 96 Oximetry 03/13/18 03/13/18 03/13/18 00:15 00:30 00:45 Temperature Pulse Rate 88 88 91 H Pulse Rate [ From Monitor] Respiratory 14 16 20 Rate Blood Pressure 99/54 93/55 93/51 O2 Sat by Pulse 98 96 96 Oximetry 03/13/18 03/13/18 03/13/18 01:00 01:15 01:30 Temperature Pulse Rate 87 89 88 Pulse Rate [ From Monitor] Respiratory 21 20 18 Rate Blood Pressure 94/50 95/56 94/52 O2 Sat by Pulse 95 96 94 Oximetry 03/13/18 03/13/18 03/13/18 01:45 02:00 02:15 Temperature Pulse Rate 85 87 91 H Pulse Rate [ From Monitor] Respiratory 20 21 20 Rate Blood Pressure 101/52 98/53 98/56 O2 Sat by Pulse 94 95 94 Oximetry 03/13/18 03/13/18 03/13/18 02:30 02:45 03:00 Temperature Pulse Rate 88 86 84 Pulse Rate [ From Monitor] Respiratory 19 22 18 Rate Blood Pressure 102/57 99/56 101/53 O2 Sat by Pulse 95 96 Oximetry 03/13/18 03/13/18 03/13/18 03:15 03:20 03:30 Temperature Pulse Rate 89 89 100 H Pulse Rate [ From Monitor] Respiratory 20 14 Rate Blood Pressure 98/52 98/52 98/52 O2 Sat by Pulse 95 98 98 Oximetry 03/13/18 03/13/18 03/13/18 03:45 04:00 04:15 Temperature 99.9 F H Pulse Rate 90 87 90 Pulse Rate [ 90 From Monitor] Respiratory 15 18 18 Rate Blood Pressure 103/57 103/54 102/59 O2 Sat by Pulse 100 94 Oximetry 03/13/18 03/13/18 03/13/18 04:30 04:46 05:00 Temperature Pulse Rate 88 102 H 93 H Pulse Rate [ From Monitor] Respiratory 20 18 18 Rate Blood Pressure 103/55 110/68 110/69 O2 Sat by Pulse 93 94 94 Oximetry 03/13/18 03/13/18 03/13/18 05:15 05:30 05:45 Temperature Pulse Rate 89 89 89 Pulse Rate [ From Monitor] Respiratory 21 20 23 Rate Blood Pressure 108/65 103/60 105/64 O2 Sat by Pulse 93 94 95 Oximetry 03/13/18 03/13/18 03/13/18 06:00 06:16 06:30 Temperature Pulse Rate 86 88 87 Pulse Rate [ From Monitor] Respiratory 30 H 20 19 Rate Blood Pressure 106/62 106/62 110/65 O2 Sat by Pulse 98 96 Oximetry 03/13/18 03/13/18 03/13/18 06:45 07:00 07:16 Temperature Pulse Rate 84 83 75 Pulse Rate [ From Monitor] Respiratory 20 20 19 Rate Blood Pressure 112/61 100/61 100/61 O2 Sat by Pulse 95 95 100 Oximetry 03/13/18 03/13/18 03/13/18 07:30 07:45 08:00 Temperature 98.5 F Pulse Rate 85 82 81 Pulse Rate [ 79 From Monitor] Respiratory 20 20 22 Rate Blood Pressure 102/60 102/59 102/55 O2 Sat by Pulse 94 95 98 Oximetry 03/13/18 03/13/18 03/13/18 08:15 08:30 08:45 Temperature Pulse Rate 80 74 82 Pulse Rate [ From Monitor] Respiratory 18 20 20 Rate Blood Pressure 102/55 105/60 106/61 O2 Sat by Pulse 96 95 Oximetry 03/13/18 09:00 Temperature Pulse Rate 79 Pulse Rate [ From Monitor] Respiratory 20 Rate Blood Pressure 106/61 O2 Sat by Pulse 99 Oximetry Constitutional: alert, appears uncomfortable Eyes: non-icteric ENT: oropharynx dry, other (orally intubated and sedated) Neck: supple Effort: mildly labored Ascultation: Bilateral: rales Percussion: Bilateral: not dull Cardiovascular: other (sinus tach) Gastrointestinal: normoactive bowel sounds, non-tender Neurologic: normal mental status, non-focal exam CBC and BMP: 03/13/18 05:22 03/13/18 05:22 ABG, PT/INR, D-dimer: ABG POC ABG pH 7.410 (7.35-7.45) 03/13/18 04:37 POC ABG pCO2 60.2 (35-45) H 03/13/18 04:37 POC ABG pO2 115 (80-105) H 03/13/18 04:37 POC ABG HCO3 38.2 03/13/18 04:37 POC ABG Total CO2 40 03/13/18 04:37 POC ABG O2 Sat 98 03/13/18 04:37 PT/INR, D-dimer PT 17.2 Sec. (12.2-14.9) H 03/10/18 18:15 INR 1.36 (0.87-1.13) H 03/10/18 18:15 Abnormal lab findings: Abnormal Labs 03/09/18 03/09/18 03/09/18 07:00 07:00 07:00 WBC RBC Hgb Hct RDW 15.5 H Plt Count 25 L Seg Neuts % (Manual) 90.0 H Lymphocytes % (Manual) 5.0 L Monocytes % (Manual) Seg Neutrophils # Man Lymphocytes # (Manual) 0.4 L Monocytes # (Manual) PT 22.9 H INR 1.98 H APTT Fibrinogen POC ABG pH POC ABG pCO2 POC ABG pO2 VBG pH Sodium 135 L Potassium Chloride 90.8 L Carbon Dioxide 17 L BUN 45 H Creatinine 5.8 H Glucose 72 L POC Glucose Lactic Acid Calcium 7.6 L Phosphorus Magnesium Total Bilirubin Direct Bilirubin Alkaline Phosphatase 154 H Lactate Dehydrogenase Total Creatine Kinase NT-Pro-B Natriuret Pep Total Protein Albumin 3.6 L Urine WBC (Auto) Urine Creatinine Urine Total Protein Complement C3 03/09/18 03/09/18 03/09/18 07:00 07:00 07:00 WBC RBC Hgb Hct RDW Plt Count Seg Neuts % (Manual) Lymphocytes % (Manual) Monocytes % (Manual) Seg Neutrophils # Man Lymphocytes # (Manual) Monocytes # (Manual) PT INR APTT Fibrinogen POC ABG pH POC ABG pCO2 POC ABG pO2 VBG pH 7.297 L Sodium Potassium Chloride Carbon Dioxide BUN Creatinine Glucose POC Glucose Lactic Acid 6.80 H* Calcium Phosphorus 5.40 H Magnesium 1.20 L Total Bilirubin Direct Bilirubin Alkaline Phosphatase Lactate Dehydrogenase Total Creatine Kinase 228 H NT-Pro-B Natriuret Pep Total Protein Albumin Urine WBC (Auto) Urine Creatinine Urine Total Protein Complement C3 03/09/18 03/09/18 03/09/18 09:22 12:36 14:39 WBC RBC Hgb Hct RDW Plt Count Seg Neuts % (Manual) Lymphocytes % (Manual) Monocytes % (Manual) Seg Neutrophils # Man Lymphocytes # (Manual) Monocytes # (Manual) PT INR APTT Fibrinogen POC ABG pH POC ABG pCO2 POC ABG pO2 VBG pH Sodium Potassium Chloride Carbon Dioxide BUN Creatinine Glucose POC Glucose Lactic Acid 5.90 H* 8.30 H* Calcium Phosphorus Magnesium Total Bilirubin Direct Bilirubin Alkaline Phosphatase Lactate Dehydrogenase Total Creatine Kinase NT-Pro-B Natriuret Pep Total Protein Albumin Urine WBC (Auto) 86.0 H Urine Creatinine Urine Total Protein Complement C3 03/09/18 03/09/18 03/09/18 14:39 14:39 15:12 WBC RBC Hgb Hct RDW Plt Count Seg Neuts % (Manual) Lymphocytes % (Manual) Monocytes % (Manual) Seg Neutrophils # Man Lymphocytes # (Manual) Monocytes # (Manual) PT INR APTT Fibrinogen POC ABG pH POC ABG pCO2 POC ABG pO2 VBG pH Sodium Potassium Chloride Carbon Dioxide BUN Creatinine Glucose POC Glucose Lactic Acid 5.90 H* Calcium Phosphorus Magnesium Total Bilirubin Direct Bilirubin Alkaline Phosphatase Lactate Dehydrogenase Total Creatine Kinase NT-Pro-B Natriuret Pep Total Protein Albumin Urine WBC (Auto) Urine Creatinine 217.1 H 210.7 H Urine Total Protein 820 H Complement C3 03/09/18 03/09/18 03/09/18 15:53 18:20 20:39 WBC RBC Hgb Hct RDW Plt Count Seg Neuts % (Manual) Lymphocytes % (Manual) Monocytes % (Manual) Seg Neutrophils # Man Lymphocytes # (Manual) Monocytes # (Manual) PT INR APTT Fibrinogen POC ABG pH POC ABG pCO2 POC ABG pO2 VBG pH Sodium Potassium Chloride Carbon Dioxide BUN Creatinine Glucose POC Glucose 56 L Lactic Acid 5.10 H* 4.40 H* Calcium Phosphorus Magnesium Total Bilirubin Direct Bilirubin Alkaline Phosphatase Lactate Dehydrogenase Total Creatine Kinase NT-Pro-B Natriuret Pep Total Protein Albumin Urine WBC (Auto) Urine Creatinine Urine Total Protein Complement C3 03/09/18 03/09/18 03/09/18 20:39 21:33 23:08 WBC RBC Hgb Hct RDW Plt Count Seg Neuts % (Manual) Lymphocytes % (Manual) Monocytes % (Manual) Seg Neutrophils # Man Lymphocytes # (Manual) Monocytes # (Manual) PT INR APTT Fibrinogen POC ABG pH POC ABG pCO2 POC ABG pO2 VBG pH Sodium Potassium Chloride Carbon Dioxide BUN Creatinine Glucose POC Glucose Lactic Acid 4.90 H* 4.10 H* Calcium Phosphorus Magnesium Total Bilirubin Direct Bilirubin Alkaline Phosphatase Lactate Dehydrogenase Total Creatine Kinase NT-Pro-B Natriuret Pep Total Protein Albumin Urine WBC (Auto) Urine Creatinine Urine Total Protein Complement C3 77 L 03/10/18 03/10/18 03/10/18 01:00 04:40 04:40 WBC 11.8 H RBC Hgb 11.7 L Hct RDW Plt Count 8 L* Seg Neuts % (Manual) 93.0 H Lymphocytes % (Manual) 4.0 L Monocytes % (Manual) Seg Neutrophils # Man 11.0 H Lymphocytes # (Manual) 0.5 L Monocytes # (Manual) PT INR APTT Fibrinogen POC ABG pH POC ABG pCO2 POC ABG pO2 VBG pH Sodium 136 L Potassium Chloride 96.6 L Carbon Dioxide 21 L BUN 62 H Creatinine 4.9 H Glucose POC Glucose Lactic Acid 4.10 H* Calcium 6.2 L D Phosphorus Magnesium Total Bilirubin Direct Bilirubin Alkaline Phosphatase Lactate Dehydrogenase Total Creatine Kinase NT-Pro-B Natriuret Pep Total Protein Albumin Urine WBC (Auto) Urine Creatinine Urine Total Protein Complement C3 03/10/18 03/10/18 03/10/18 05:32 06:00 09:10 WBC RBC Hgb Hct RDW Plt Count Seg Neuts % (Manual) Lymphocytes % (Manual) Monocytes % (Manual) Seg Neutrophils # Man Lymphocytes # (Manual) Monocytes # (Manual) PT INR APTT Fibrinogen POC ABG pH 7.254 L POC ABG pCO2 47.8 H POC ABG pO2 59 L VBG pH Sodium Potassium Chloride Carbon Dioxide BUN Creatinine Glucose POC Glucose 56 L Lactic Acid Calcium Phosphorus Magnesium Total Bilirubin Direct Bilirubin Alkaline Phosphatase Lactate Dehydrogenase Total Creatine Kinase NT-Pro-B Natriuret Pep Total Protein Albumin Urine WBC (Auto) 32.0 H Urine Creatinine Urine Total Protein Complement C3 03/10/18 03/10/18 03/10/18 09:14 11:16 11:16 WBC RBC Hgb Hct RDW Plt Count Seg Neuts % (Manual) Lymphocytes % (Manual) Monocytes % (Manual) Seg Neutrophils # Man Lymphocytes # (Manual) Monocytes # (Manual) PT INR APTT Fibrinogen POC ABG pH 7.266 L POC ABG pCO2 POC ABG pO2 VBG pH Sodium Potassium Chloride Carbon Dioxide BUN Creatinine Glucose POC Glucose Lactic Acid Calcium Phosphorus Magnesium Total Bilirubin Direct Bilirubin Alkaline Phosphatase Lactate Dehydrogenase 338 H Total Creatine Kinase 404 H NT-Pro-B Natriuret Pep 61377 H Total Protein Albumin Urine WBC (Auto) Urine Creatinine Urine Total Protein Complement C3 03/10/18 03/10/18 03/10/18 11:51 18:15 18:15 WBC RBC Hgb Hct RDW Plt Count Seg Neuts % (Manual) Lymphocytes % (Manual) Monocytes % (Manual) Seg Neutrophils # Man Lymphocytes # (Manual) Monocytes # (Manual) PT 17.2 H 17.0 H INR 1.36 H 1.34 H APTT 38.5 H Fibrinogen 852 H POC ABG pH POC ABG pCO2 POC ABG pO2 VBG pH Sodium Potassium Chloride Carbon Dioxide BUN Creatinine Glucose POC Glucose 109 H Lactic Acid Calcium Phosphorus Magnesium Total Bilirubin Direct Bilirubin Alkaline Phosphatase Lactate Dehydrogenase Total Creatine Kinase NT-Pro-B Natriuret Pep Total Protein Albumin Urine WBC (Auto) Urine Creatinine Urine Total Protein Complement C3 03/10/18 03/10/18 03/10/18 19:45 20:40 22:07 WBC RBC Hgb Hct RDW Plt Count Seg Neuts % (Manual) Lymphocytes % (Manual) Monocytes % (Manual) Seg Neutrophils # Man Lymphocytes # (Manual) Monocytes # (Manual) PT INR APTT Fibrinogen POC ABG pH POC ABG pCO2 POC ABG pO2 VBG pH Sodium Potassium Chloride Carbon Dioxide BUN Creatinine Glucose POC Glucose 136 H 135 H 135 H Lactic Acid Calcium Phosphorus Magnesium Total Bilirubin Direct Bilirubin Alkaline Phosphatase Lactate Dehydrogenase Total Creatine Kinase NT-Pro-B Natriuret Pep Total Protein Albumin Urine WBC (Auto) Urine Creatinine Urine Total Protein Complement C3 03/10/18 03/11/18 03/11/18 23:06 00:07 02:01 WBC RBC Hgb Hct RDW Plt Count Seg Neuts % (Manual) Lymphocytes % (Manual) Monocytes % (Manual) Seg Neutrophils # Man Lymphocytes # (Manual) Monocytes # (Manual) PT INR APTT Fibrinogen POC ABG pH POC ABG pCO2 POC ABG pO2 VBG pH Sodium Potassium Chloride Carbon Dioxide BUN Creatinine Glucose POC Glucose 133 H 148 H 161 H Lactic Acid Calcium Phosphorus Magnesium Total Bilirubin Direct Bilirubin Alkaline Phosphatase Lactate Dehydrogenase Total Creatine Kinase NT-Pro-B Natriuret Pep Total Protein Albumin Urine WBC (Auto) Urine Creatinine Urine Total Protein Complement C3 03/11/18 03/11/18 03/11/18 03:10 04:12 04:50 WBC 12.8 H RBC Hgb 10.9 L Hct 32.5 L RDW 15.3 H Plt Count 17 L* D Seg Neuts % (Manual) 96.0 H Lymphocytes % (Manual) 2.0 L Monocytes % (Manual) Seg Neutrophils # Man 12.3 H Lymphocytes # (Manual) 0.3 L Monocytes # (Manual) PT INR APTT Fibrinogen POC ABG pH POC ABG pCO2 POC ABG pO2 VBG pH Sodium Potassium Chloride Carbon Dioxide BUN Creatinine Glucose POC Glucose 189 H 188 H Lactic Acid Calcium Phosphorus Magnesium Total Bilirubin Direct Bilirubin Alkaline Phosphatase Lactate Dehydrogenase Total Creatine Kinase NT-Pro-B Natriuret Pep Total Protein Albumin Urine WBC (Auto) Urine Creatinine Urine Total Protein Complement C3 03/11/18 03/11/18 03/11/18 04:50 05:30 05:33 WBC RBC Hgb Hct RDW Plt Count Seg Neuts % (Manual) Lymphocytes % (Manual) Monocytes % (Manual) Seg Neutrophils # Man Lymphocytes # (Manual) Monocytes # (Manual) PT INR APTT Fibrinogen POC ABG pH POC ABG pCO2 POC ABG pO2 58 L VBG pH Sodium Potassium Chloride 94.2 L Carbon Dioxide BUN 62 H Creatinine 2.7 H Glucose 191 H POC Glucose 187 H Lactic Acid Calcium 7.9 L D Phosphorus Magnesium Total Bilirubin Direct Bilirubin Alkaline Phosphatase Lactate Dehydrogenase Total Creatine Kinase NT-Pro-B Natriuret Pep Total Protein Albumin Urine WBC (Auto) Urine Creatinine Urine Total Protein Complement C3 03/11/18 03/11/18 03/11/18 07:47 12:11 13:18 WBC RBC Hgb Hct RDW Plt Count Seg Neuts % (Manual) Lymphocytes % (Manual) Monocytes % (Manual) Seg Neutrophils # Man Lymphocytes # (Manual) Monocytes # (Manual) PT INR APTT Fibrinogen POC ABG pH POC ABG pCO2 POC ABG pO2 VBG pH Sodium Potassium Chloride Carbon Dioxide BUN Creatinine Glucose POC Glucose 151 H 166 H 157 H Lactic Acid Calcium Phosphorus Magnesium Total Bilirubin Direct Bilirubin Alkaline Phosphatase Lactate Dehydrogenase Total Creatine Kinase NT-Pro-B Natriuret Pep Total Protein Albumin Urine WBC (Auto) Urine Creatinine Urine Total Protein Complement C3 03/11/18 03/11/18 03/11/18 14:26 14:48 15:15 WBC 21.2 H RBC Hgb 11.0 L Hct 33.8 L RDW Plt Count 15 L* Seg Neuts % (Manual) 92.0 H Lymphocytes % (Manual) 4.0 L Monocytes % (Manual) Seg Neutrophils # Man 19.5 H Lymphocytes # (Manual) 0.8 L Monocytes # (Manual) PT INR APTT Fibrinogen POC ABG pH POC ABG pCO2 POC ABG pO2 VBG pH Sodium Potassium Chloride Carbon Dioxide BUN Creatinine Glucose POC Glucose 145 H 139 H Lactic Acid Calcium Phosphorus Magnesium Total Bilirubin Direct Bilirubin Alkaline Phosphatase Lactate Dehydrogenase Total Creatine Kinase NT-Pro-B Natriuret Pep Total Protein Albumin Urine WBC (Auto) Urine Creatinine Urine Total Protein Complement C3 03/11/18 03/11/18 03/11/18 16:17 17:48 20:16 WBC RBC Hgb Hct RDW Plt Count Seg Neuts % (Manual) Lymphocytes % (Manual) Monocytes % (Manual) Seg Neutrophils # Man Lymphocytes # (Manual) Monocytes # (Manual) PT INR APTT Fibrinogen POC ABG pH POC ABG pCO2 POC ABG pO2 VBG pH Sodium Potassium Chloride Carbon Dioxide BUN Creatinine Glucose POC Glucose 145 H 142 H 158 H Lactic Acid Calcium Phosphorus Magnesium Total Bilirubin Direct Bilirubin Alkaline Phosphatase Lactate Dehydrogenase Total Creatine Kinase NT-Pro-B Natriuret Pep Total Protein Albumin Urine WBC (Auto) Urine Creatinine Urine Total Protein Complement C3 03/11/18 03/11/18 03/12/18 21:02 23:14 00:54 WBC 29.6 H RBC Hgb 10.6 L Hct 31.3 L RDW Plt Count 51 L D Seg Neuts % (Manual) Lymphocytes % (Manual) Monocytes % (Manual) Seg Neutrophils # Man Lymphocytes # (Manual) Monocytes # (Manual) PT INR APTT Fibrinogen POC ABG pH POC ABG pCO2 POC ABG pO2 VBG pH Sodium Potassium Chloride Carbon Dioxide BUN Creatinine Glucose POC Glucose 146 H 168 H Lactic Acid Calcium Phosphorus Magnesium Total Bilirubin Direct Bilirubin Alkaline Phosphatase Lactate Dehydrogenase Total Creatine Kinase NT-Pro-B Natriuret Pep Total Protein Albumin Urine WBC (Auto) Urine Creatinine Urine Total Protein Complement C3 03/12/18 03/12/18 03/12/18 06:19 06:29 06:29 WBC 32.7 H RBC Hgb 10.5 L Hct 31.7 L RDW 15.3 H Plt Count 34 L Seg Neuts % (Manual) 81.5 H Lymphocytes % (Manual) 7.0 L Monocytes % (Manual) 7.5 H Seg Neutrophils # Man 26.7 H Lymphocytes # (Manual) Monocytes # (Manual) 2.5 H PT INR APTT Fibrinogen POC ABG pH POC ABG pCO2 POC ABG pO2 VBG pH Sodium Potassium 3.4 L Chloride Carbon Dioxide BUN 69 H Creatinine 2.2 H Glucose 181 H POC Glucose 185 H Lactic Acid Calcium Phosphorus Magnesium Total Bilirubin Direct Bilirubin Alkaline Phosphatase Lactate Dehydrogenase Total Creatine Kinase NT-Pro-B Natriuret Pep Total Protein Albumin Urine WBC (Auto) Urine Creatinine Urine Total Protein Complement C3 03/12/18 03/12/18 03/12/18 06:29 07:21 07:44 WBC RBC Hgb Hct RDW Plt Count Seg Neuts % (Manual) Lymphocytes % (Manual) Monocytes % (Manual) Seg Neutrophils # Man Lymphocytes # (Manual) Monocytes # (Manual) PT INR APTT Fibrinogen POC ABG pH 7.337 L POC ABG pCO2 54.9 H POC ABG pO2 59 L VBG pH Sodium Potassium Chloride Carbon Dioxide BUN Creatinine Glucose POC Glucose 157 H Lactic Acid Calcium Phosphorus Magnesium Total Bilirubin 2.30 H Direct Bilirubin 1.5 H Alkaline Phosphatase Lactate Dehydrogenase Total Creatine Kinase NT-Pro-B Natriuret Pep Total Protein 6.2 L Albumin 3.1 L Urine WBC (Auto) Urine Creatinine Urine Total Protein Complement C3 03/12/18 03/12/18 03/12/18 10:16 12:53 15:22 WBC RBC Hgb Hct RDW Plt Count Seg Neuts % (Manual) Lymphocytes % (Manual) Monocytes % (Manual) Seg Neutrophils # Man Lymphocytes # (Manual) Monocytes # (Manual) PT INR APTT Fibrinogen POC ABG pH POC ABG pCO2 61.7 H POC ABG pO2 110 H VBG pH Sodium Potassium Chloride Carbon Dioxide BUN Creatinine Glucose POC Glucose 153 H 148 H Lactic Acid Calcium Phosphorus Magnesium Total Bilirubin Direct Bilirubin Alkaline Phosphatase Lactate Dehydrogenase Total Creatine Kinase NT-Pro-B Natriuret Pep Total Protein Albumin Urine WBC (Auto) Urine Creatinine Urine Total Protein Complement C3 03/12/18 03/12/18 03/13/18 18:17 21:34 01:14 WBC RBC Hgb Hct RDW Plt Count Seg Neuts % (Manual) Lymphocytes % (Manual) Monocytes % (Manual) Seg Neutrophils # Man Lymphocytes # (Manual) Monocytes # (Manual) PT INR APTT Fibrinogen POC ABG pH POC ABG pCO2 POC ABG pO2 VBG pH Sodium Potassium Chloride Carbon Dioxide BUN Creatinine Glucose POC Glucose 148 H 161 H 187 H Lactic Acid Calcium Phosphorus Magnesium Total Bilirubin Direct Bilirubin Alkaline Phosphatase Lactate Dehydrogenase Total Creatine Kinase NT-Pro-B Natriuret Pep Total Protein Albumin Urine WBC (Auto) Urine Creatinine Urine Total Protein Complement C3 03/13/18 03/13/18 03/13/18 04:37 05:22 05:22 WBC 30.4 H RBC 3.45 L Hgb 9.8 L Hct 29.7 L RDW Plt Count 37 L Seg Neuts % (Manual) 75.5 H Lymphocytes % (Manual) 3.0 L Monocytes % (Manual) Seg Neutrophils # Man 23.0 H Lymphocytes # (Manual) 0.9 L Monocytes # (Manual) PT INR APTT Fibrinogen POC ABG pH POC ABG pCO2 60.2 H POC ABG pO2 115 H VBG pH Sodium 146 H Potassium Chloride Carbon Dioxide 35 H D BUN 71 H Creatinine 1.7 H Glucose 187 H POC Glucose Lactic Acid Calcium Phosphorus Magnesium Total Bilirubin Direct Bilirubin Alkaline Phosphatase Lactate Dehydrogenase Total Creatine Kinase NT-Pro-B Natriuret Pep Total Protein Albumin Urine WBC (Auto) Urine Creatinine Urine Total Protein Complement C3 03/13/18 08:24 WBC RBC Hgb Hct RDW Plt Count Seg Neuts % (Manual) Lymphocytes % (Manual) Monocytes % (Manual) Seg Neutrophils # Man Lymphocytes # (Manual) Monocytes # (Manual) PT INR APTT Fibrinogen POC ABG pH POC ABG pCO2 POC ABG pO2 VBG pH Sodium Potassium Chloride Carbon Dioxide BUN Creatinine Glucose POC Glucose 210 H Lactic Acid Calcium Phosphorus Magnesium Total Bilirubin Direct Bilirubin Alkaline Phosphatase Lactate Dehydrogenase Total Creatine Kinase NT-Pro-B Natriuret Pep Total Protein Albumin Urine WBC (Auto) Urine Creatinine Urine Total Protein Complement C3
[2018-03-13] MEDS: PROTONIX IV SCH (10:53)
[2018-03-13] MEDS: MAXIPIME/NS 2 GM/100 ML 2 GM/100 ML BAG IV SCH ×2 (10:53→21:25)
[2018-03-13] MEDS: DECADRON 20 MG in NACL 0.9% 50 ML IV SCH ×2 (10:53→21:25)
[2018-03-13] MEDS: MEPRON PO SCH (10:53)
[2018-03-13] MEDS: LASIX IV SCH ×2 (10:53→21:26)
[2018-03-13] MEDS: SODIUM CHLORIDE FLUSH SYRINGE 10 ML IV SCH (10:54)
--- NOTE | 2018-03-13 11:05 | XRay Report ---
FINAL REPORT EXAM: XR CHEST 1V AP HISTORY: Hypoxemia COMPARISON: Chest radiograph performed on 03/12/2017 TECHNIQUE: Single frontal view of the chest FINDINGS: Endotracheal tube with tip in the midtrachea. Enteric tube with tip below the level of the film, and likely within the stomach. The cardiomediastinal silhouette is normal in appearance. Marked improvement bilateral airspace disease, now mild diffuse residual hazy opacity. No pleural eff usion or pneumothorax. No acute bony or soft tissue abnormality. IMPRESSION: Marked improvement in bilateral are space disease, now with mild diffuse residual hazy opacity.
--- NOTE | 2018-03-13 11:05 | Progress Note ---
Assessment and Plan 1. Septic shock currently on multiple pressor agent 2. Respiratory failure 3. Acute renal failure 4. Dilated cardiomyopathy 5. HIV/AIDS Plan. Continue conservative supportive cardiac management. Subjective Date of service: 03/13/18 Principal diagnosis: acute renal failure Interval history: No change in clinical status Objective Vital Signs Temp Pulse Pulse Resp BP Pulse Ox 03/13/18 09:53 70 102/56 99 03/13/18 09:00 79 20 106/61 99 03/13/18 08:45 82 20 106/61 03/13/18 08:30 74 20 105/60 95 03/13/18 08:15 80 18 102/55 96 03/13/18 08:00 98.5 F 81 79 22 102/55 98 03/13/18 07:45 82 20 102/59 95 03/13/18 07:30 85 20 102/60 94 03/13/18 07:16 75 19 100/61 100 03/13/18 07:00 83 20 100/61 95 03/13/18 06:45 84 20 112/61 95 03/13/18 06:30 87 19 110/65 96 03/13/18 06:16 88 20 106/62 98 03/13/18 06:00 86 30 H 106/62 03/13/18 05:45 89 23 105/64 95 03/13/18 05:30 89 20 103/60 94 03/13/18 05:15 89 21 108/65 93 03/13/18 05:00 93 H 18 110/69 94 03/13/18 04:46 102 H 18 110/68 94 03/13/18 04:30 88 20 103/55 93 03/13/18 04:15 90 18 102/59 94 03/13/18 04:00 99.9 F H 87 90 18 103/54 100 03/13/18 03:45 90 15 103/57 03/13/18 03:30 100 H 14 98/52 98 03/13/18 03:20 89 98/52 98 03/13/18 03:15 89 20 98/52 95 03/13/18 03:00 84 18 101/53 96 03/13/18 02:45 86 22 99/56 03/13/18 02:30 88 19 102/57 95 03/13/18 02:15 91 H 20 98/56 94 03/13/18 02:00 87 21 98/53 95 03/13/18 01:45 85 20 101/52 94 03/13/18 01:30 88 18 94/52 94 03/13/18 01:15 89 20 95/56 96 03/13/18 01:00 87 21 94/50 95 03/13/18 00:45 91 H 20 93/51 96 03/13/18 00:30 88 16 93/55 96 03/13/18 00:15 88 14 99/54 98 03/13/18 00:00 99.1 F 90 90 20 90/54 96 03/12/18 23:45 90 20 94/51 96 03/12/18 23:30 91 H 20 94/52 96 03/12/18 23:29 94 H 94/52 99 03/12/18 23:15 92 H 20 95/47 96 03/12/18 23:00 95 H 19 105/49 100 03/12/18 22:45 90 22 99/50 95 03/12/18 22:30 94 H 19 101/60 97 03/12/18 22:15 95 H 20 103/61 95 03/12/18 22:00 94 H 20 100/61 95 03/12/18 21:45 92 H 20 102/59 03/12/18 21:30 97 H 19 102/62 96 03/12/18 21:15 94 H 19 102/61 03/12/18 21:00 96 H 20 105/62 03/12/18 20:45 96 H 21 102/61 03/12/18 20:30 96 H 20 107/59 95 03/12/18 20:15 96 H 21 98/57 95 03/12/18 20:00 99.5 F 94 H 96 H 21 106/63 97 03/12/18 19:50 94 H 21 108/58 98 03/12/18 19:45 93 H 22 108/58 93 03/12/18 19:35 91 H 21 101/59 97 03/12/18 19:31 93 H 101/59 97 03/12/18 19:30 97 H 22 101/59 93 03/12/18 19:15 94 H 20 105/59 93 03/12/18 19:00 93 H 20 103/55 93 03/12/18 18:45 87 22 99/55 93 03/12/18 18:30 94 H 20 107/57 92 03/12/18 18:15 94 H 21 111/54 97 03/12/18 18:00 93 H 20 103/54 94 03/12/18 17:45 95 H 19 106/56 92 03/12/18 17:30 97 H 18 100/54 91 03/12/18 17:15 98 H 19 102/51 93 03/12/18 17:00 97 H 20 103/55 92 03/12/18 16:45 99 H 21 104/55 91 03/12/18 16:30 98 H 24 111/57 92 03/12/18 16:15 105 H 21 104/56 90 03/12/18 16:14 106 H 104/56 95 03/12/18 16:00 98.7 F 96 H 97 H 20 105/61 91 03/12/18 15:45 100 H 20 113/59 92 03/12/18 15:30 100 H 21 107/64 03/12/18 15:15 98 H 23 108/64 03/12/18 15:00 101 H 21 105/59 94 03/12/18 14:45 99 H 23 102/62 03/12/18 14:30 101 H 20 103/63 97 03/12/18 14:15 100 H 22 103/60 93 03/12/18 14:00 101 H 21 109/56 93 03/12/18 13:45 99 H 21 107/65 94 03/12/18 13:30 100 H 23 103/65 92 03/12/18 13:15 100 H 21 105/62 93 03/12/18 13:00 101 H 22 110/61 03/12/18 12:45 102 H 21 104/62 92 03/12/18 12:30 101 H 23 109/60 03/12/18 12:15 103 H 24 104/60 94 03/12/18 12:00 99 F 105 H 99 H 25 H 108/64 93 03/12/18 11:45 101 H 27 H 107/63 95 03/12/18 11:30 102 H 29 H 111/71 03/12/18 11:16 97 H 109/70 100 03/12/18 11:15 98 H 28 H 109/70 96 - Physical Examination General: Cachectic, Other (Intubated and sedated) HEENT: Positive: PERRL Neck: Positive: neck supple. Negative: JVD/HJR Cardiac: Positive: Regular Rate, S1/S2, S3, PMI, Dilated, Laterally Displaced Lungs: Positive: clear to auscultation, No Wheeze, Rales, Rhonchi Neuro: Positive: Other (sedated and unresponsive) Abdomen: Positive: Soft Skin: Positive: Clear Extremities: Absent: edema - Labs and Meds CBC 03/12/18 03/13/18 Range/Units 06:29 05:22 WBC 30.4 H (4.5-11.0) K/mm3 RBC 3.45 L (3.65-5.03) M/mm3 Hgb 9.8 L (11.8-15.2) gm/dl Hct 29.7 L (35.5-45.6) % Plt Count 34 L 37 L (140-440) K/mm3 Comprehensive Metabolic Panel 03/13/18 Range/Units 05:22 Sodium 146 H (137-145) mmol/L Potassium 4.3 D (3.6-5.0) mmol/L Chloride 101.9 (98-107) mmol/L Carbon Dioxide 35 H D (22-30) mmol/L BUN 71 H (9-20) mg/dL Creatinine 1.7 H (0.8-1.5) mg/dL Glucose 187 H (75-100) mg/dL Calcium 8.6 (8.4-10.2) mg/dL
[2018-03-13] MEDS: ATIVAN IV PRN ×3 (11:42→19:54)
--- NOTE | 2018-03-13 12:38 | Progress Note ---
Assessment and Plan Acute renal failure, prerenal azotemia vs. ischemic ATN from hypotension Lactic acidosis Nausea and vomiting, likely gastroenteritis Hypokalemia Hypocalcemia Dilated Cardiomyopathy Acute Pulmonary Edema Thrombocytopenia Plan: - Renal function reviewed, SCr level was 1.7 today, yesterday's SCr level was 2.2, non-oliguric - No acute indication for [employer] - Pt has active urine sediment, possibly from HIV+ or TTP, DIC, secondary GN/vascultitis work up pending, hematology consulted, f/u recs - Calculated protein cr ratio was nephrotic range at 3.9 g, f/u vasculitis/GN labs - C3, C4, hepatitis panel -> negative - GN/Vasculitus work up pending - HIV 1&2 rapid antibody was reactive, ID on board, f/u recs - Replete potassium - On Lasix 40 mg IV BID for now, diuresed well yesterday with > 5 liters, today's recorded urine output so far is at 1 liter, will monitor and adjust lasix dose as needed - Magnesium level pending - Renal US negative hydronephrosis - Cardiology, Hematology, Pulmonology, and ID on board - On pressors - Renally dose meds - Strict intake and output - Intake= 1798 ml Output= 5020 ml ( Net= -3221 ml) - Renal plan d/w Dr Walsh Subjective Date of service: 03/13/18 Principal diagnosis: acute renal failure Interval history: Pt seen in ICU intubated and sedated on ventilator, family at bedside, updated on renal plan Objective - Vital Signs Vital signs: Vital Signs - 12hr 03/13/18 03/13/18 03/13/18 00:45 01:00 01:15 Temperature Pulse Rate 91 H 87 89 Pulse Rate [ From Monitor] Respiratory 20 21 20 Rate Blood Pressure 93/51 94/50 95/56 O2 Sat by Pulse 96 95 96 Oximetry 03/13/18 03/13/18 03/13/18 01:30 01:45 02:00 Temperature Pulse Rate 88 85 87 Pulse Rate [ From Monitor] Respiratory 18 20 21 Rate Blood Pressure 94/52 101/52 98/53 O2 Sat by Pulse 94 94 95 Oximetry 03/13/18 03/13/18 03/13/18 02:15 02:30 02:45 Temperature Pulse Rate 91 H 88 86 Pulse Rate [ From Monitor] Respiratory 20 19 22 Rate Blood Pressure 98/56 102/57 99/56 O2 Sat by Pulse 94 95 Oximetry 03/13/18 03/13/18 03/13/18 03:00 03:15 03:20 Temperature Pulse Rate 84 89 89 Pulse Rate [ From Monitor] Respiratory 18 20 Rate Blood Pressure 101/53 98/52 98/52 O2 Sat by Pulse 96 95 98 Oximetry 03/13/18 03/13/18 03/13/18 03:30 03:45 04:00 Temperature 99.9 F H Pulse Rate 100 H 90 87 Pulse Rate [ 90 From Monitor] Respiratory 14 15 18 Rate Blood Pressure 98/52 103/57 103/54 O2 Sat by Pulse 98 100 Oximetry 03/13/18 03/13/18 03/13/18 04:15 04:30 04:46 Temperature Pulse Rate 90 88 102 H Pulse Rate [ From Monitor] Respiratory 18 20 18 Rate Blood Pressure 102/59 103/55 110/68 O2 Sat by Pulse 94 93 94 Oximetry 03/13/18 03/13/18 03/13/18 05:00 05:15 05:30 Temperature Pulse Rate 93 H 89 89 Pulse Rate [ From Monitor] Respiratory 18 21 20 Rate Blood Pressure 110/69 108/65 103/60 O2 Sat by Pulse 94 93 94 Oximetry 03/13/18 03/13/18 03/13/18 05:45 06:00 06:16 Temperature Pulse Rate 89 86 88 Pulse Rate [ From Monitor] Respiratory 23 30 H 20 Rate Blood Pressure 105/64 106/62 106/62 O2 Sat by Pulse 95 98 Oximetry 03/13/18 03/13/18 03/13/18 06:30 06:45 07:00 Temperature Pulse Rate 87 84 83 Pulse Rate [ From Monitor] Respiratory 19 20 20 Rate Blood Pressure 110/65 112/61 100/61 O2 Sat by Pulse 96 95 95 Oximetry 03/13/18 03/13/18 03/13/18 07:16 07:30 07:45 Temperature Pulse Rate 75 85 82 Pulse Rate [ From Monitor] Respiratory 19 20 20 Rate Blood Pressure 100/61 102/60 102/59 O2 Sat by Pulse 100 94 95 Oximetry 03/13/18 03/13/18 03/13/18 08:00 08:15 08:30 Temperature 98.5 F Pulse Rate 81 80 74 Pulse Rate [ 79 From Monitor] Respiratory 22 18 20 Rate Blood Pressure 102/55 102/55 105/60 O2 Sat by Pulse 98 96 95 Oximetry 03/13/18 03/13/18 03/13/18 08:45 09:00 09:15 Temperature Pulse Rate 82 79 77 Pulse Rate [ From Monitor] Respiratory 20 20 20 Rate Blood Pressure 106/61 106/61 106/56 O2 Sat by Pulse 99 96 Oximetry 03/13/18 03/13/18 03/13/18 09:30 09:45 09:53 Temperature Pulse Rate 75 71 70 Pulse Rate [ From Monitor] Respiratory 20 20 Rate Blood Pressure 102/60 101/55 102/56 O2 Sat by Pulse 94 97 99 Oximetry 03/13/18 03/13/18 03/13/18 10:00 10:16 10:30 Temperature Pulse Rate 71 82 72 Pulse Rate [ From Monitor] Respiratory 21 18 20 Rate Blood Pressure 102/56 113/65 104/55 O2 Sat by Pulse 96 96 94 Oximetry 03/13/18 03/13/18 03/13/18 10:45 11:00 11:15 Temperature Pulse Rate 72 76 73 Pulse Rate [ From Monitor] Respiratory 20 20 18 Rate Blood Pressure 101/55 108/57 103/60 O2 Sat by Pulse 93 94 95 Oximetry 03/13/18 03/13/18 03/13/18 11:30 11:45 12:00 Temperature 99.5 F Pulse Rate 76 79 77 Pulse Rate [ 77 From Monitor] Respiratory 20 20 20 Rate Blood Pressure 104/59 107/58 105/56 O2 Sat by Pulse 94 92 91 Oximetry - General Appearance General appearance: sedated on ventilator, intubated EENT: ATNC Neck: no JVD Respiratory: Present: Decreased Breath Sounds Cardiology: regular, S1S2 Gastrointestinal: normoactive bowel sounds Integumentary: warm and dry Neurologic: other (intubated on ventilator) Musculoskeletal: other (trace edema to BLE) Psychiatric: other (unable to assess) - Lab 03/13/18 05:22 03/13/18 05:22 Most recent lab results Calcium 8.6 mg/dL (8.4-10.2) 03/13/18 05:22 Phosphorus 3.70 mg/dL (2.5-4.5) 03/13/18 05:22 Magnesium 2.00 mg/dL (1.7-2.3) 03/11/18 04:50 Urine Creatinine 210.7 mg/dL (0.1-20.0) H 03/09/18 14:39 Urine Sodium 36 mmol/L 03/09/18 14:39 Urine Total Protein 820 mg/dL (5-11.8) H 03/09/18 14:39 Medications & Allergies - Medications Allergies/Adverse Reactions: Allergies clindamycin Allergy (Verified 03/09/18 06:43) Swelling Home Medications: Home Medications Medication Instructions Recorded Confirmed Last Taken Type No Known Home Medications [No 03/09/18 03/09/18 Unknown History Reported Home Medications] Active Medications: Generic Name Dose Route Start Last Admin Trade Name Freq PRN Reason Stop Dose Admin Lipase/Protease/Amylase 1 each 03/12/18 12:[address] 10,500 Unit FEEDTUBE PRN PRN For Clogged Feeding Tube Atovaquone 1,500 mg 03/11/18 20:00 03/13/18 10:53 Mepron PO 1,500 mg QDAY LIU Administration Dextrose 50 ml 03/09/18 16:15 D50w (25gm) Syringe IV PRN PRN HYPOGLYCEMIA Furosemide 40 mg 03/12/18 10:00 03/13/18 10:53 Lasix IV 40 mg Q12H LIU Administration Haloperidol Lactate 5 mg 03/12/18 02:15 03/12/18 02:41 Haldol IV 5 mg Q6H PRN Administration Agitation Hydrophilic Ointment 1 applic 03/12/18 07:47 03/13/18 11:34 Vaseline Lip Therapy TP 1 applic Q2HR PRN Administration Dry Lips Norepinephrine 4 mg in 250 mls @ 7.5 mls/hr 03/09/18 23:45 03/12/18 13:57 Levophed Drip 4 Mg/Ns 250 Ml IV 0 mcg/min TITR LIU 0 mls/hr Titration Protocol 2 MCG/MIN Vasopressin 20 unit/ Sodium 101 mls @ 9.09 mls/hr 03/10/18 11:00 03/13/18 03:21 Chloride IV 0.03 units/min TITR LIU 9.09 mls/hr Administration Protocol 0.03 UNITS/MIN Dextrose 1,000 mls @ 42 mls/hr 03/10/18 11:00 03/11/18 16:29 D10w IV 42 mls/hr DIRECT LIU Administration Dexamethasone 20 mg/ Sodium 55 mls @ 100 mls/hr 03/11/18 11:30 03/13/18 10:53 Chloride IV 100 mls/hr Q12HR LIU Administration Propofol 1,000 mg in 100 mls @ 2.721 mls/hr 03/12/18 08:00 03/13/18 11:35 Diprivan 10 Mg/Ml IV 50 mcg/kg/min TITR LIU 27.21 mls/hr Administration Protocol 5 MCG/KG/MIN Cefepime HCl 2 gm in 100 mls @ 200 mls/hr 03/13/18 10:00 03/13/18 10:53 Maxipime/Ns 2 Gm/100 Ml IV 200 mls/hr Q12HR LIU Administration Lorazepam 1 mg 03/11/18 16:56 03/13/18 11:42 Ativan IV 1 mg Q4H PRN Administration Anxiety Morphine Sulfate 1 mg 03/11/18 16:56 03/13/18 08:00 Morphine IV 1 mg Q4H PRN Administration Pain, Moderate (4-6) Multi-Ingred Cream/Lotion/Oil/Oint 1 applic 03/12/18 07:47 Artificial Tears Ophth Oint OU Q4HR PRN Dry Eye(s) Ondansetron HCl 4 mg 03/10/18 19:30 03/13/18 11:32 Zofran IV Not Given Q4H [facility] Pantoprazole Sodium 40 mg 03/09/18 13:00 03/13/18 10:53 Protonix IV 40 mg QDAY LIU Administration Simple Syrup 15 ml 03/12/18 12:58 Simple Syrup FEEDTUBE PRN PRN Hypoglycemia Simple Syrup 30 ml 03/12/18 12:58 Simple Syrup FEEDTUBE PRN PRN Hypoglycemia Sodium Bicarbonate 325 mg 03/12/18 12:58 Sodium Bicarbonate FEEDTUBE PRN PRN For Clogged Feeding Tube Sodium Chloride 10 ml 03/09/18 22:00 03/13/18 10:54 Sodium Chloride Flush Syringe 10 Ml IV 10 ml BID LIU Administration Sodium Chloride 10 ml 03/09/18 10:41 Sodium Chloride Flush Syringe 10 Ml IV PRN PRN LINE FLUSH
--- NOTE | 2018-03-13 15:48 | Progress Note ---
Assessment and Plan Cultures: 03/09/2018 blood culture: Hemophilus hemolyticus in both sets 03/09/2018 influenza rapid: Negative 03/10/2018 urine culture: Negative 03/12/2018 Resp culture: usual resp thomas. 03/12/2018 Crypto Ag serum: negative. A/P: 33/M with no medical history, admitted with: 1) Septic shock requiring pressors: currently on vasopressin. 2) Acute respiratory failure: now on vent. Initial CXR not suggestive of pneumonia, low suspicion for PJP pneumonia especially since patient reported a good recent CD4 count. Repeat CXRs are probably more suggestive of fluid overload / pulmonary edema which has steadily been improving with diuretics. Anyways, patient on Atovaquone which will cover PJP. Avoiding Bactrim due to thrombocytopenia. 3) Haemophilus hemolyticus bacteremia: source unclear ?lung. Initial CXR not suggestive of pneumonia. Continue Cefepime. Repeat blood cultures ordered. 4) HIV positive: Apparently he has been HIV positive, used to be on meds - Genvoya but stopped taking it 6 months ago, states his last CD4 count was 400+. HIV RNA PCR and CD4 count pending. 5) Acute renal failure, severe thrombocytopenia, coagulopathy: TTP v/s DIC. Nephrology and Hematology on board. Appreciate recs. Ok for steroids from ID standpoint. [id number] pending. FELICIA, ANCA pending. C3, C4 normal. Creatinine improving 6) Cardiomyopathy: low EF. etiology unclear. ?HIV related. Cardiology following. Recs: - continue Cefepime 2 gm q12 hrs now that creatinine is gradually improving. - continue mepron (atovaquone) - HIV PCR and CD4 count pending - OK for steroids from ID standpoint, currently on dexamethasone per Dr. Ruff (Hematology/Oncology) - repeat blood cultures ordered for AM - critically ill. Guarded prognosis Kaylyn Vasquez MD [facility] C: [phone] O: [phone] F: [phone] Subjective Date of service: 03/13/18 Principal diagnosis: acute renal failure Interval history: Since last seen by us, patient was intubated and placed on mechanical ventilation. He is sedated. Levo weaned off, still on vasopressin. Objective - Exam Narrative Exam: Physical Exam: Constitutional: sedated, intubated, on vent. Head, Ears, Nose: Normocephalic, atraumatic. External ears, nose normal Eyes: Conjunctivae/corneas clear. No icterus. No ptosis. Neck: Supple, no meningeal signs Oral: intubated Cardiovascular: S1, S2 normal, no murmur Respiratory: Good air entry, clear to auscultation bilaterally GI: bowel sounds normal. No peritoneal signs Musculoskeletal: No pedal edema, no cyanosis. Skin: No rash or abscess Hem/Lymphatic: No palpable cervical or supraclavicular nodes. No lymphangitis Psych: sedated Neurological: sedated, intubated, exam limited - Constitutional Vitals: Vital Signs Temp Pulse Resp BP Pulse Ox 99.5 F 74 20 102/51 97 03/13/18 12:00 03/13/18 15:00 03/13/18 15:00 03/13/18 15:00 03/13/18 15:00 Temperature -Last 24 Hours Temperature 99.5 F Temperature 98.5 F Temperature 99.9 F Temperature 99.1 F Temperature 99.5 F Temperature 98.7 F - Labs CBC & Chem 7: 03/13/18 05:22 03/13/18 05:22 Labs: Abnormal lab results 03/12/18 03/12/18 03/12/18 Range/Units 10:16 18:17 21:34 WBC (4.5-11.0) K/mm3 RBC (3.65-5.03) M/mm3 Hgb (11.8-15.2) gm/dl Hct (35.5-45.6) % Plt Count (140-440) K/mm3 Seg Neuts % (Manual) (40.0-70.0) % Lymphocytes % (Manual) (13.4-35.0) % Seg Neutrophils # Man (1.8-7.7) K/mm3 Lymphocytes # (Manual) (1.2-5.4) K/mm3 POC ABG pCO2 (35-45) POC ABG pO2 (80-105) Sodium (137-145) mmol/L Carbon Dioxide (22-30) mmol/L BUN (9-20) mg/dL Creatinine (0.8-1.5) mg/dL Glucose (75-100) mg/dL POC Glucose 153 H 148 H 161 H (70-105) Magnesium (1.7-2.3) mg/dL 03/13/18 03/13/18 03/13/18 Range/Units 01:14 04:37 05:22 WBC 30.4 H (4.5-11.0) K/mm3 RBC 3.45 L (3.65-5.03) M/mm3 Hgb 9.8 L (11.8-15.2) gm/dl Hct 29.7 L (35.5-45.6) % Plt Count 37 L (140-440) K/mm3 Seg Neuts % (Manual) 75.5 H (40.0-70.0) % Lymphocytes % (Manual) 3.0 L (13.4-35.0) % Seg Neutrophils # Man 23.0 H (1.8-7.7) K/mm3 Lymphocytes # (Manual) 0.9 L (1.2-5.4) K/mm3 POC ABG pCO2 60.2 H (35-45) POC ABG pO2 115 H (80-105) Sodium (137-145) mmol/L Carbon Dioxide (22-30) mmol/L BUN (9-20) mg/dL Creatinine (0.8-1.5) mg/dL Glucose (75-100) mg/dL POC Glucose 187 H (70-105) Magnesium (1.7-2.3) mg/dL 03/13/18 03/13/18 03/13/18 Range/Units 05:22 08:24 12:22 WBC (4.5-11.0) K/mm3 RBC (3.65-5.03) M/mm3 Hgb (11.8-15.2) gm/dl Hct (35.5-45.6) % Plt Count (140-440) K/mm3 Seg Neuts % (Manual) (40.0-70.0) % Lymphocytes % (Manual) (13.4-35.0) % Seg Neutrophils # Man (1.8-7.7) K/mm3 Lymphocytes # (Manual) (1.2-5.4) K/mm3 POC ABG pCO2 (35-45) POC ABG pO2 (80-105) Sodium 146 H (137-145) mmol/L Carbon Dioxide 35 H D (22-30) mmol/L BUN 71 H (9-20) mg/dL Creatinine 1.7 H (0.8-1.5) mg/dL Glucose 187 H (75-100) mg/dL POC Glucose 210 H 208 H (70-105) Magnesium (1.7-2.3) mg/dL 03/13/18 Range/Units 12:44 WBC (4.5-11.0) K/mm3 RBC (3.65-5.03) M/mm3 Hgb (11.8-15.2) gm/dl Hct (35.5-45.6) % Plt Count (140-440) K/mm3 Seg Neuts % (Manual) (40.0-70.0) % Lymphocytes % (Manual) (13.4-35.0) % Seg Neutrophils # Man (1.8-7.7) K/mm3 Lymphocytes # (Manual) (1.2-5.4) K/mm3 POC ABG pCO2 (35-45) POC ABG pO2 (80-105) Sodium (137-145) mmol/L Carbon Dioxide (22-30) mmol/L BUN (9-20) mg/dL Creatinine (0.8-1.5) mg/dL Glucose (75-100) mg/dL POC Glucose (70-105) Magnesium 3.00 H (1.7-2.3) mg/dL - Imaging and cardiology Chest x-ray: report reviewed, image reviewed (improving infiltrates bilaterally. ET tube +)
[2018-03-13 17:36] LABS: Myeloperoxidase Antibody <1.0 AI (<1.0)
[2018-03-13 17:36] LABS: Myeloperoxidase Antibody <1.0 AI (<1.0)
[2018-03-13 22:09] LABS: ANA Screen, IFA Negative (Negative)
[2018-03-14] MEDS: Vasostrict 20 UNIT in NACL 0.9% 100 ML IV SCH (01:22)
[2018-03-14] MEDS: ATIVAN IV PRN ×3 (01:23→13:12)
[2018-03-14] MEDS: DIPRIVAN 10 MG/ML 1,000 MG/100 ML BOTTLE IV SCH ×4 (01:45→15:15)
[2018-03-14] MEDS: MORPHINE IV PRN (03:07)
[2018-03-14] MEDS ORDERED: DIAMOX PO ONE (05:24)
[2018-03-14] MEDS ORDERED: MORPHINE IV PRN (05:25)
[2018-03-14] MEDS ORDERED: DIAMOX IV ONE (05:48)
[2018-03-14 07:12] LABS: Hematocrit 30.8 % (35.5-45.6); Mean Corpuscular HGB Conc 33 % (32-34); Mean Corpuscular Volume 88 fl (84-94); Red Blood Count 3.52 M/mm3 (3.65-5.03); Red Cell Distribution Width 14.9 % (13.2-15.2)
[2018-03-14 07:14] LABS: Platelet Count 50 K/mm3 (140-440)
--- NOTE | 2018-03-14 07:14 | Hem/Onc Progress Note ---
Assessment and Plan 1. Thrombocytopenia. I reviewed the peripheral smear. I spoke to the labor relations analyst. The laboratory report mentioned no schistocytes. When I reviewed the smear it did not have any schistocytes. Creatinine is elevated. The patient is short of breath. 2. At this time, differential includes some idiopathic thrombocytopenic purpura. Other differentials include immunosuppression related or medication or infection related. The patient's PT, PTT is elevated, but fibrinogen is not low. At admission, chest x-ray was clear and now it has worsened. There is a clinical suspicion of this being infection or disseminated intravascular coagulation or acute respiratory distress syndrome. 3. Renal impairment. 4. Decreased urine output. 5. h/o Shortness of breath. 6. Human immunodeficiency virus, pt was on treatment. 7. discussed with IDT. 8. steroid trial. 9. BNP was elevated. 10. I ordered [id number]. 11. Abnormal liver function tests. 12. Being treated for Haemophilus influenzae. 13. CD4 count 400. I will follow the patient during inpatient stay. 03/11/2018 - d/w dr garrison - low EF pt is on dexa 40 daily s/p plt transfusion no active bleeding 03/12/2018 s/p plt transfusion on dexa intubated d/w lab reg [id number] HIV d/w dr ojeda 03/14/2018 - plt 50 k improving - pt on dexa for ? ITP anemia - will Ix and follow - Patient Problems (1) Thrombocytopenia Current Visit: Yes Status: Acute Subjective Date of service: 03/14/18 Principal diagnosis: low plt Interval history: pt on vent Objective - Exam Narrative Exam: agitated - in spite of sedation - Constitutional Vitals: Last Vital Signs Temp 100.2 F H 03/14/18 03:15 Pulse 106 H 03/14/18 05:16 Resp 21 03/14/18 05:16 BP 114/70 03/14/18 05:16 Pulse Ox 99 03/14/18 05:16 General appearance: other (agitated) Performance status: 4-completely disabled - EENT ENT: other (orally intubated) Lymph node exam: negative cervical, negative supraclavicular - Respiratory Respiratory: bilateral: diminished - Cardiovascular Heart Sounds: Present: S1 & S2 Extremities: No edema - Gastrointestinal General gastrointestinal: Present: soft, non-tender Rectal Exam: deferred - Genitourinary Male genitourinary: Present: deferred - Integumentary Integumentary: warm - Musculoskeletal Musculoskeletal: strength equal bilaterally - Neurologic Neurologic: moves all extremities - Labs Lab Results: Laboratory Results - last 24 hr 03/09/18 03/10/18 03/10/18 20:39 11:16 11:16 Plt Count Add Manual Diff Total Counted Seg Neuts % (Manual) Band Neutrophils % Lymphocytes % (Manual) Reactive Lymphs % (Man) Monocytes % (Manual) Eosinophils % (Manual) Basophils % (Manual) Metamyelocytes % Myelocytes % Promyelocytes % Blast Cells % Nucleated RBC % Seg Neutrophils # Man Band Neutrophils # Lymphocytes # (Manual) Abs React Lymphs (Man) Monocytes # (Manual) Eosinophils # (Manual) Basophils # (Manual) Metamyelocytes # Myelocytes # Promyelocytes # Blast Cells # WBC Morphology Hypersegmented Neuts Hyposegmented Neuts Hypogranular Neuts Smudge Cells Toxic Granulation Toxic Vacuolation Dohle Bodies Pelger-Huet Anomaly Kamar Rods Platelet Estimate Clumped Platelets Plt Clumps, EDTA Large Platelets Giant Platelets Platelet Satelliting Plt Morphology Comment RBC Morphology Dimorphic RBCs Polychromasia Hypochromasia Poikilocytosis Anisocytosis Microcytosis Macrocytosis Spherocytes Pappenheimer Bodies Sickle Cells Target Cells Tear Drop Cells Ovalocytes Helmet Cells [place] Bodies [place] Rings Lyssa Cells Bite Cells Crenated Cell Elliptocytes Acanthocytes (Spur) Rouleaux Hemoglobin C Crystals Schistocytes Malaria parasites Jose Bodies Hem Pathologist Commnt POC ABG pH POC ABG pCO2 POC ABG pO2 POC ABG HCO3 POC ABG Total CO2 POC ABG O2 Sat POC ABG Base Excess FiO2 POC Glucose Magnesium FELICIA Screen Negative Proteinase 3 (PR3) Ab <1.0 <1.0 Myeloperoxidase Ab <1.0 <1.0 03/13/18 03/13/18 03/13/18 05:22 08:24 12:22 Plt Count 37 L Add Manual Diff Complete Total Counted 200 Seg Neuts % (Manual) 75.5 H Band Neutrophils % 19.5 Lymphocytes % (Manual) 3.0 L Reactive Lymphs % (Man) 0 Monocytes % (Manual) 2.0 Eosinophils % (Manual) 0 Basophils % (Manual) 0 Metamyelocytes % 0 Myelocytes % 0 Promyelocytes % 0 Blast Cells % 0 Nucleated RBC % Not Reportable Seg Neutrophils # Man 23.0 H Band Neutrophils # 5.9 Lymphocytes # (Manual) 0.9 L Abs React Lymphs (Man) 0.0 Monocytes # (Manual) 0.6 Eosinophils # (Manual) 0.0 Basophils # (Manual) 0.0 Metamyelocytes # 0.0 Myelocytes # 0.0 Promyelocytes # 0.0 Blast Cells # 0.0 WBC Morphology Not Reportable Hypersegmented Neuts Not Reportable Hyposegmented Neuts Not Reportable Hypogranular Neuts Not Reportable Smudge Cells Not Reportable Toxic Granulation Not Reportable Toxic Vacuolation Not Reportable Dohle Bodies Not Reportable Pelger-Huet Anomaly Not Reportable Kamar Rods Not Reportable Platelet Estimate Consistent w auto Clumped Platelets Not Reportable Plt Clumps, EDTA Not Reportable Large Platelets Not Reportable Giant Platelets Not Reportable Platelet Satelliting Not Reportable Plt Morphology Comment Not Reportable RBC Morphology Not Reportable Dimorphic RBCs Not Reportable Polychromasia Few Hypochromasia Not Reportable Poikilocytosis Not Reportable Anisocytosis 1+ Microcytosis Not Reportable Macrocytosis Not Reportable Spherocytes Not Reportable Pappenheimer Bodies Not Reportable Sickle Cells Not Reportable Target Cells Few Tear Drop Cells Not Reportable Ovalocytes Not Reportable Helmet Cells Not Reportable [place] Bodies Not Reportable [place] Rings Not Reportable Lyssa Cells Not Reportable Bite Cells Not Reportable Crenated Cell Not Reportable Elliptocytes Few Acanthocytes (Spur) Not Reportable Rouleaux Not Reportable Hemoglobin C Crystals Not Reportable Schistocytes Not Reportable Malaria parasites Not Reportable Jose Bodies Not Reportable Hem Pathologist Commnt No POC ABG pH POC ABG pCO2 POC ABG pO2 POC ABG HCO3 POC ABG Total CO2 POC ABG O2 Sat POC ABG Base Excess FiO2 POC Glucose 210 H 208 H Magnesium FELICIA Screen Proteinase 3 (PR3) Ab Myeloperoxidase Ab 03/13/18 03/13/18 03/13/18 12:44 17:27 23:35 Plt Count Add Manual Diff Total Counted Seg Neuts % (Manual) Band Neutrophils % Lymphocytes % (Manual) Reactive Lymphs % (Man) Monocytes % (Manual) Eosinophils % (Manual) Basophils % (Manual) Metamyelocytes % Myelocytes % Promyelocytes % Blast Cells % Nucleated RBC % Seg Neutrophils # Man Band Neutrophils # Lymphocytes # (Manual) Abs React Lymphs (Man) Monocytes # (Manual) Eosinophils # (Manual) Basophils # (Manual) Metamyelocytes # Myelocytes # Promyelocytes # Blast Cells # WBC Morphology Hypersegmented Neuts Hyposegmented Neuts Hypogranular Neuts Smudge Cells Toxic Granulation Toxic Vacuolation Dohle Bodies Pelger-Huet Anomaly Kamar Rods Platelet Estimate Clumped Platelets Plt Clumps, EDTA Large Platelets Giant Platelets Platelet Satelliting Plt Morphology Comment RBC Morphology Dimorphic RBCs Polychromasia Hypochromasia Poikilocytosis Anisocytosis Microcytosis Macrocytosis Spherocytes Pappenheimer Bodies Sickle Cells Target Cells Tear Drop Cells Ovalocytes Helmet Cells [place] Bodies [place] Rings Lyssa Cells Bite Cells Crenated Cell Elliptocytes Acanthocytes (Spur) Rouleaux Hemoglobin C Crystals Schistocytes Malaria parasites Jose Bodies Hem Pathologist Commnt POC ABG pH POC ABG pCO2 POC ABG pO2 POC ABG HCO3 POC ABG Total CO2 POC ABG O2 Sat POC ABG Base Excess FiO2 POC Glucose 169 H 256 H Magnesium 3.00 H FELICIA Screen Proteinase 3 (PR3) Ab Myeloperoxidase Ab 03/14/18 03/14/18 04:29 05:23 Plt Count Add Manual Diff Total Counted Seg Neuts % (Manual) Band Neutrophils % Lymphocytes % (Manual) Reactive Lymphs % (Man) Monocytes % (Manual) Eosinophils % (Manual) Basophils % (Manual) Metamyelocytes % Myelocytes % Promyelocytes % Blast Cells % Nucleated RBC % Seg Neutrophils # Man Band Neutrophils # Lymphocytes # (Manual) Abs React Lymphs (Man) Monocytes # (Manual) Eosinophils # (Manual) Basophils # (Manual) Metamyelocytes # Myelocytes # Promyelocytes # Blast Cells # WBC Morphology Hypersegmented Neuts Hyposegmented Neuts Hypogranular Neuts Smudge Cells Toxic Granulation Toxic Vacuolation Dohle Bodies Pelger-Huet Anomaly Kamar Rods Platelet Estimate Clumped Platelets Plt Clumps, EDTA Large Platelets Giant Platelets Platelet Satelliting Plt Morphology Comment RBC Morphology Dimorphic RBCs Polychromasia Hypochromasia Poikilocytosis Anisocytosis Microcytosis Macrocytosis Spherocytes Pappenheimer Bodies Sickle Cells Target Cells Tear Drop Cells Ovalocytes Helmet Cells [place] Bodies [place] Rings Lyssa Cells Bite Cells Crenated Cell Elliptocytes Acanthocytes (Spur) Rouleaux Hemoglobin C Crystals Schistocytes Malaria parasites Jose Bodies Hem Pathologist Commnt POC ABG pH 7.502 H POC ABG pCO2 53.2 H POC ABG pO2 83 POC ABG HCO3 41.7 POC ABG Total CO2 43 POC ABG O2 Sat 97 POC ABG Base Excess 19 FiO2 50 POC Glucose 212 H Magnesium FELICIA Screen Proteinase 3 (PR3) Ab Myeloperoxidase Ab Medications & Allergies - Medications Allergies/Adverse Reactions: Allergies clindamycin Allergy (Verified 03/09/18 06:43) Swelling Home Medications: Home Medications Medication Instructions Recorded Confirmed Last Taken Type No Known Home Medications [No 03/09/18 03/09/18 Unknown History Reported Home Medications] Active Medications: Generic Name Dose Route Start Last Admin Trade Name Freq PRN Reason Stop Dose Admin Lipase/Protease/Amylase 1 each 03/12/18 12:[address] 10,500 Unit FEEDTUBE PRN PRN For Clogged Feeding Tube Atovaquone 1,500 mg 03/11/18 20:00 03/13/18 10:53 Mepron PO 1,500 mg QDAY LIU Administration Dextrose 50 ml 03/09/18 16:15 D50w (25gm) Syringe IV PRN PRN HYPOGLYCEMIA Furosemide 40 mg 03/12/18 10:00 03/13/18 21:26 Lasix IV 40 mg Q12H LIU Administration Haloperidol Lactate 5 mg 03/12/18 02:15 03/12/18 02:41 Haldol IV 5 mg Q6H PRN Administration Agitation Hydrophilic Ointment 1 applic 03/12/18 07:47 03/13/18 11:34 Vaseline Lip Therapy TP 1 applic Q2HR PRN Administration Dry Lips Norepinephrine 4 mg in 250 mls @ 7.5 mls/hr 03/09/18 23:45 03/12/18 13:57 Levophed Drip 4 Mg/Ns 250 Ml IV 0 mcg/min TITR LIU 0 mls/hr Titration Protocol 2 MCG/MIN Vasopressin 20 unit/ Sodium 101 mls @ 9.09 mls/hr 03/10/18 11:00 03/14/18 01:22 Chloride IV 0.03 units/min TITR LIU 9.09 mls/hr Administration Protocol 0.03 UNITS/MIN Dextrose 1,000 mls @ 42 mls/hr 03/10/18 11:00 03/11/18 16:29 D10w IV 42 mls/hr DIRECT LIU Administration Dexamethasone 20 mg/ Sodium 55 mls @ 100 mls/hr 03/11/18 11:30 03/13/18 21:25 Chloride IV 100 mls/hr Q12HR LIU Administration Propofol 1,000 mg in 100 mls @ 2.721 mls/hr 03/12/18 08:00 03/14/18 04:25 Diprivan 10 Mg/Ml IV 50 mcg/kg/min TITR LIU 27.21 mls/hr Administration Protocol 5 MCG/KG/MIN Cefepime HCl 2 gm in 100 mls @ 200 mls/hr 03/13/18 10:00 03/13/18 21:25 Maxipime/Ns 2 Gm/100 Ml IV 200 mls/hr Q12HR LIU Administration Lorazepam 1 mg 03/11/18 16:56 03/14/18 01:23 Ativan IV 1 mg Q4H PRN Administration Anxiety Morphine Sulfate 2 mg 03/14/18 05:25 Morphine IV Q4H PRN Pain, Moderate (4-6) Multi-Ingred Cream/Lotion/Oil/Oint 1 applic 03/12/18 07:47 Artificial Tears Ophth Oint OU Q4HR PRN Dry Eye(s) Ondansetron HCl 4 mg 03/10/18 19:30 03/13/18 18:45 Zofran IV Not Given Q4H LIU Pantoprazole Sodium 40 mg 03/09/18 13:00 03/13/18 10:53 Protonix IV 40 mg QDAY LIU Administration Simple Syrup 15 ml 03/12/18 12:58 Simple Syrup FEEDTUBE PRN PRN Hypoglycemia Simple Syrup 30 ml 03/12/18 12:58 Simple Syrup FEEDTUBE PRN PRN Hypoglycemia Sodium Bicarbonate 325 mg 03/12/18 12:58 Sodium Bicarbonate FEEDTUBE PRN PRN For Clogged Feeding Tube Sodium Chloride 10 ml 03/09/18 22:00 03/13/18 10:54 Sodium Chloride Flush Syringe 10 Ml IV 10 ml BID LIU Administration Sodium Chloride 10 ml 03/09/18 10:41 Sodium Chloride Flush Syringe 10 Ml IV PRN PRN LINE FLUSH
[2018-03-14 07:17] LABS: BUN/Creatinine Ratio 54; Blood Urea Nitrogen 70 mg/dL (9-20); Calcium 8.7 mg/dL (8.4-10.2); Hemolysis Index 10
[2018-03-14] MEDS ORDERED: ZOFRAN IV PRN (08:00)
--- NOTE | 2018-03-14 08:14 | XRay Report ---
AP CHEST: HISTORY: Hypoxemia The endotracheal tube and feeding tube remain in good position. A small air space opacity has developed in the medial left lower lobe. This probably represents segmental atelectasis. The remainder of the lungs are clear. No pleural effusion or pneumothorax. Normal heart size. IMPRESSION: Segmental atelectasis has developed in the medial left lower lobe. Otherwise, no change since 03/13/18.
--- NOTE | 2018-03-14 08:34 | Progress Note ---
Assessment and Plan Assessment and plan: Patient is 33 yo with HIV infection. He initially presented with nausea, vomiting, general weakness and chills for 2 days. He was getting weaker, no Urine output therefore came to ED for evaluation. In ED, labs show acute kidney injury with metabolic acidosis thrombocytopenia. He was Sepic, hypotensive. He was given 2000ml bolus, was still hypotensive therefore started on Levophed infusion, admitted to ICU. He got worse, developed acute respiratory failure, so intubated. patient has received 5 Units Platelet phresis for thrombocytopenia(Platelets went down to 8). Acute renal failure, much improved. He is still intubated, now on Vasopressin only. Was on Levophed and Vasopressin. Septic shock/hypotension Admitted to ICU Now on vasopressin, Off Levophed was on Levophed and Vasopressin Acute respiratory failure worsened, intubated, put on vent 03/12/17 lasix iv Bilateral infiltrates-pulm edema. To r/o PCP pneumonia [facility] Nephrology consulted and has evaluated Discussed with nephrology Improving Cr 1.7 today Sepsis Blood cultures growing Hemophylus haemolyticus Started iv Abx Now on Cefepime ID Physician following Leukocytosis worsening HIV infection. Diagnosed 6 yrs ago was on HAART but been off meds for 2 mths ID Physician following Thrombocytopenia Platelets now 50 after total 5 platelet pheresis, steroids Hematology following On steroids Hyponatremia Hypoglycemia. Cont D10 Coagulopathy, improved Lactic acidosis Metabolic acidosis, resolved Full code status Discussed with mother at bedside. History Interval history: Patient had more shortness of breath, respiratory distress so intubated morning of 03/12/17 Still on Vasopressin, Off Levophed Hospitalist Physical - Physical exam Narrative exam: GEN: Intubated, on Ventilator HEENT: Normocephalic, atraumatic, Neck: supple, No JVD Lungs: Bilateral crackles, no rhonchi,no wheeze Heart:S1 and S2 regular, no murmurs, rubs or gallop, Abd:soft, non tender, non distended, normal bowel sounds Ext: No edema, no clubbing or cyanosis Neuro: Intubated, sedated - Constitutional Vitals: Temp Pulse Resp BP Pulse Ox 100.2 F H 89 21 113/66 98 03/14/18 03:15 03/14/18 07:55 03/14/18 05:16 03/14/18 07:55 03/14/18 07:55 General appearance: Present: cachectic, other (chronically ill-appearing) Results - Labs CBC & Chem 7: 03/14/18 06:00 03/14/18 06:00 Labs: Laboratory Last Values WBC 27.3 K/mm3 (4.5-11.0) H 03/14/18 06:00 RBC 3.52 M/mm3 (3.65-5.03) L 03/14/18 06:00 Hgb 10.0 gm/dl (11.8-15.2) L 03/14/18 06:00 Hct 30.8 % (35.5-45.6) L 03/14/18 06:00 MCV 88 fl (84-94) 03/14/18 06:00 MCH 29 pg (28-32) 03/14/18 06:00 MCHC 33 % (32-34) 03/14/18 06:00 RDW 14.9 % (13.2-15.2) 03/14/18 06:00 Plt Count 50 K/mm3 (140-440) L 03/14/18 06:00 Eos % (Auto) Schedule Supervisor 03/09/18 07:00 Add Manual Diff Complete 03/13/18 05:22 Total Counted 200 03/13/18 05:22 Seg Neutrophils % Schedule Supervisor 03/13/18 05:22 Seg Neuts % (Manual) 75.5 % (40.0-70.0) H 03/13/18 05:22 Band Neutrophils % 19.5 % 03/13/18 05:22 Lymphocytes % (Manual) 3.0 % (13.4-35.0) L 03/13/18 05:22 Reactive Lymphs % (Man) 0 % 03/13/18 05:22 Monocytes % (Manual) 2.0 % (0.0-7.3) 03/13/18 05:22 Eosinophils % (Manual) 0 % (0.0-4.3) 03/13/18 05:22 Basophils % (Manual) 0 % (0.0-1.8) 03/13/18 05:22 Metamyelocytes % 0 % 03/13/18 05:22 Myelocytes % 0 % 03/13/18 05:22 Promyelocytes % 0 % 03/13/18 05:22 Blast Cells % 0 % 03/13/18 05:22 Nucleated RBC % Not Reportable 03/13/18 05:22 Seg Neutrophils # Man 23.0 K/mm3 (1.8-7.7) H 03/13/18 05:22 Band Neutrophils # 5.9 K/mm3 03/13/18 05:22 Lymphocytes # (Manual) 0.9 K/mm3 (1.2-5.4) L 03/13/18 05:22 Abs React Lymphs (Man) 0.0 K/mm3 03/13/18 05:22 Monocytes # (Manual) 0.6 K/mm3 (0.0-0.8) 03/13/18 05:22 Eosinophils # (Manual) 0.0 K/mm3 (0.0-0.4) 03/13/18 05:22 Basophils # (Manual) 0.0 K/mm3 (0.0-0.1) 03/13/18 05:22 Metamyelocytes # 0.0 K/mm3 03/13/18 05:22 Myelocytes # 0.0 K/mm3 03/13/18 05:22 Promyelocytes # 0.0 K/mm3 03/13/18 05:22 Blast Cells # 0.0 K/mm3 03/13/18 05:22 WBC Morphology Not Reportable 03/13/18 05:22 Hypersegmented Neuts Not Reportable 03/13/18 05:22 Hyposegmented Neuts Not Reportable 03/13/18 05:22 Hypogranular Neuts Not Reportable 03/13/18 05:22 Smudge Cells Not Reportable 03/13/18 05:22 Toxic Granulation Not Reportable 03/13/18 05:22 Toxic Vacuolation Not Reportable 03/13/18 05:22 Dohle Bodies Not Reportable 03/13/18 05:22 Pelger-Huet Anomaly Not Reportable 03/13/18 05:22 Kamar Rods Not Reportable 03/13/18 05:22 Platelet Estimate Consistent w auto 03/13/18 05:22 Clumped Platelets Not Reportable 03/13/18 05:22 Plt Clumps, EDTA Not Reportable 03/13/18 05:22 Large Platelets Not Reportable 03/13/18 05:22 Giant Platelets Not Reportable 03/13/18 05:22 Platelet Satelliting Not Reportable 03/13/18 05:22 Plt Morphology Comment Not Reportable 03/13/18 05:22 RBC Morphology Not Reportable 03/13/18 05:22 Dimorphic RBCs Not Reportable 03/13/18 05:22 Polychromasia Few 03/13/18 05:22 Hypochromasia Not Reportable 03/13/18 05:22 Poikilocytosis Not Reportable 03/13/18 05:22 Anisocytosis 1+ 03/13/18 05:22 Microcytosis Not Reportable 03/13/18 05:22 Macrocytosis Not Reportable 03/13/18 05:22 Spherocytes Not Reportable 03/13/18 05:22 Pappenheimer Bodies Not Reportable 03/13/18 05:22 Sickle Cells Not Reportable 03/13/18 05:22 Target Cells Few 03/13/18 05:22 Tear Drop Cells Not Reportable 03/13/18 05:22 Ovalocytes Not Reportable 03/13/18 05:22 Helmet Cells Not Reportable 03/13/18 05:22 Barnes-[place] Bodies Not Reportable 03/13/18 05:22 [place] Rings Not Reportable 03/13/18 05:22 [place] Cells Not Reportable 03/13/18 05:22 Bite Cells Not Reportable 03/13/18 05:22 Crenated Cell Not Reportable 03/13/18 05:22 Elliptocytes Few 03/13/18 05:22 Acanthocytes (Spur) Not Reportable 03/13/18 05:22 Rouleaux Not Reportable 03/13/18 05:22 Hemoglobin C Crystals Not Reportable 03/13/18 05:22 Schistocytes Not Reportable 03/13/18 05:22 Malaria parasites Not Reportable 03/13/18 05:22 Jose Bodies Not Reportable 03/13/18 05:22 Hem Pathologist Commnt No 03/13/18 05:22 PT 17.2 Sec. (12.2-14.9) H 03/10/18 18:15 INR 1.36 (0.87-1.13) H 03/10/18 18:15 APTT 38.5 Sec. (24.2-36.6) H 03/10/18 18:15 Fibrinogen 852 mg/dl (211-480) H 03/10/18 18:15 POC ABG pH 7.502 (7.35-7.45) H 03/14/18 04:29 POC ABG pCO2 53.2 (35-45) H 03/14/18 04:29 POC ABG pO2 83 (80-105) 03/14/18 04:29 POC ABG HCO3 41.7 03/14/18 04:29 POC ABG Total CO2 43 03/14/18 04:29 POC ABG O2 Sat 97 03/14/18 04:29 POC ABG Base Excess 19 03/14/18 04:29 VBG pH 7.297 (7.320-7.420) L 03/09/18 07:00 FiO2 50 % 03/14/18 04:29 Sodium 156 mmol/L (137-145) H D 03/14/18 06:00 Potassium 4.1 mmol/L (3.6-5.0) 03/14/18 06:00 Chloride 109.5 mmol/L (98-107) H 03/14/18 06:00 Carbon Dioxide 37 mmol/L (22-30) H 03/14/18 06:00 Anion Gap 14 mmol/L 03/14/18 06:00 BUN 70 mg/dL (9-20) H 03/14/18 06:00 Creatinine 1.3 mg/dL (0.8-1.5) 03/14/18 06:00 Estimated GFR > 60 ml/min 03/14/18 06:00 BUN/Creatinine Ratio 54 % 03/14/18 06:00 Glucose 202 mg/dL (75-100) H 03/14/18 06:00 POC Glucose 212 (70-105) H 03/14/18 05:23 Lactic Acid 4.10 mmol/L (0.7-2.0) H* 03/10/18 01:00 Calcium 8.7 mg/dL (8.4-10.2) 03/14/18 06:00 Phosphorus 2.70 mg/dL (2.5-4.5) D 03/14/18 06:00 Magnesium 3.00 mg/dL (1.7-2.3) H 03/13/18 12:44 Total Bilirubin 2.30 mg/dL (0.1-1.2) H 03/12/18 06:29 Direct Bilirubin 1.5 mg/dL (0-0.2) H 03/12/18 06:29 Indirect Bilirubin 0.8 mg/dL 03/12/18 06:29 AST 33 units/L (5-40) 03/12/18 06:29 ALT 48 units/L (7-56) 03/12/18 06:29 Alkaline Phosphatase 111 units/L (35-129) 03/12/18 06:29 Lactate Dehydrogenase 338 units/L (91-180) H 03/10/18 11:16 Total Creatine Kinase 17 units/L (55-170) L 03/14/18 06:00 NT-Pro-B Natriuret Pep 83770 pg/mL (0-450) H 03/10/18 11:16 Total Protein 6.2 g/dL (6.3-8.2) L 03/12/18 06:29 Albumin 3.1 g/dL (3.9-5) L 03/12/18 06:29 Albumin/Globulin Ratio 1.0 % 03/12/18 06:29 Urine Color Red (Yellow) 03/10/18 06:00 Urine Turbidity Cloudy (Clear) 03/10/18 06:00 Urine pH 5.0 (5.0-7.0) 03/10/18 06:00 Ur Specific [place] 1.009 (1.003-1.030) 03/10/18 06:00 Urine Protein 100 mg/dl mg/dL (Negative) 03/10/18 06:00 Urine Glucose (UA) Neg mg/dL (Negative) 03/10/18 06:00 Urine Ketones Neg mg/dL (Negative) 03/10/18 06:00 Urine Blood Lg (Negative) 03/10/18 06:00 Urine Nitrite Neg (Negative) 03/10/18 06:00 Urine Bilirubin Neg (Negative) 03/10/18 06:00 Urine Urobilinogen < 2.0 mg/dL (<2.0) 03/10/18 06:00 Ur Leukocyte Esterase Neg (Negative) 03/10/18 06:00 Urine WBC (Auto) 32.0 /HPF (0.0-6.0) H 03/10/18 06:00 Urine RBC (Auto) > 182.0 /HPF (0.0-6.0) 03/10/18 06:00 U Epithel Cells (Auto) 5.0 /HPF (0-13.0) 03/09/18 14:39 Urine Bacteria (Auto) 2+ /HPF (Negative) 03/10/18 06:00 Urine WBC Clumps Few /HPF 03/09/18 14:39 Amorphous Crystals 3+ 03/10/18 06:00 Granular Casts 29 /LPF 03/10/18 06:00 Urine Creatinine 210.7 mg/dL (0.1-20.0) H 03/09/18 14:39 Protein/Creatinin Ratio 3.89 03/09/18 14:39 Urine Sodium 36 mmol/L 03/09/18 14:39 Urine Total Protein 820 mg/dL (5-11.8) H 03/09/18 14:39 FELICIA Screen Negative (Negative) 03/10/18 11:16 Proteinase 3 (PR3) Ab <1.0 AI (<1.0) 03/10/18 11:16 Myeloperoxidase Ab <1.0 AI (<1.0) 03/10/18 11:16 Complement C3 83 mg/dL (82-185) 03/10/18 11:16 Complement C4 30 mg/dL (15-53) 03/10/18 11:16 Hepatitis A IgM Ab Non-reactive (NonReactive) 03/09/18 20:39 Hep Bs Antigen Non-reactive (Negative) 03/09/18 20:39 Hep B Core IgM Ab Non-reactive (NonReactive) 03/09/18 20:39 Hepatitis C Antibody Non-reactive (NonReactive) 03/09/18 20:39 HIV 1&2 Antibody Rapid Reactive (Non React) 03/09/18 20:39 HIV P24 Antigen Non react (Non React) 03/09/18 20:39 Influenza A (Rapid) Negative (Negative) 03/09/18 Unknown Influenza B (Rapid) Negative (Negative) 03/09/18 Unknown Schistocytes Smear Rare 03/10/18 11:16 Blood Type O POSITIVE 03/09/18 12:36 Antibody Screen Negative 03/09/18 12:36 Nutrition/Malnutrition Assess - Dietary Evaluation Nutrition/Malnutrition Findings: Nutrition Notes Start: 03/12/18 12:51 Freq: Status: Active Protocol: Document 03/12/18 12:51 LP (Rec: 03/12/18 12:58 LP [id number]) Nutrition Notes Need for Assessment generated from: MD Order Initial or Follow up Assessment Current Diagnoses Acute Kidney Injury Sepsis Respiratory Failure Other Pertinent Diagnosis HIV Current Diet NPO Labs/Tests K 3.4 BUN 69 Cr 2.2 Total bili 2.3 Medications D10 at 42ml/hr Propofol Height 5 ft 11 in Weight 90.7 kg [place] Body Weight (lbs) 172.0 BMI 27.8 Subjective/Other Information Consult for TF. Pt on vent. Burn Absent Trauma Absent #2 Nutrition Diagnoses Inadequate oral intake Etiology vent As Evidenced by Signs and Symptoms Pt NPO Is patient on ventilator? Yes Is Patient Ambulatory and/or Out of Bed No REE-([facility]-confined to bed) 6427.128 Calculation Used for Recommendations [facility] Additional Notes Protein needs are 109-181g (1. 2-2g/kg) Fluid needs are 1ml/kcal Nutrition Intervention Change Diet Order: TF Nutrition Support: Osmolite 1.5 at 60ml/hr Flush with 125ml q4h Kcal 2,160 Protein (gm) 90 Fluid (mL) 1,097 Goal #1 Meet at least 80% of kcal and protein needs Anticipated Discharge Needs: Unable to determine at this time Follow-Up By: 03/14/18 Additional Comments Follow for TF start/tolerance
[2018-03-14 09:07] LABS: Iron 42 ug/dL (49-181); Total Iron Binding Capacity 262 mcg/dL (250-450)
[2018-03-14 09:23] LABS: Band Neutrophils # (Manual) 0.3 K/mm3; Basophils % (Manual) 0 % (0.0-1.8); Eosinophils % (Manual) 0 % (0.0-4.3); Hypochromasia 1+; Myelocytes # (Manual) 0.3 K/mm3; Platelet Estimate Consistent w Auto; Stomatocytes Rare; Total Cells Counted 100
[2018-03-14] MEDS: MEPRON PO SCH (10:21)
[2018-03-14] MEDS: PREVACID SOLUTAB FEEDTUBE SCH (10:23)
[2018-03-14] MEDS: MAXIPIME/NS 2 GM/100 ML 2 GM/100 ML BAG IV SCH ×2 (10:23→22:47)
[2018-03-14] MEDS: DECADRON 20 MG in NACL 0.9% 50 ML IV SCH ×2 (10:24→22:47)
[2018-03-14] MEDS: SODIUM CHLORIDE FLUSH SYRINGE 10 ML IV SCH ×3 (10:25→22:50)
--- NOTE | 2018-03-14 10:38 | Progress Note ---
Assessment and Plan Cultures: 03/09/2018 blood culture: Hemophilus hemolyticus in both sets 03/09/2018 influenza rapid: Negative 03/10/2018 urine culture: Negative 03/12/2018 Resp culture: usual resp thomas. 03/12/2018 Crypto Ag serum: negative. 03/13/2018 blood culture no growth so far A/P: 33/M with no medical history, admitted with: 1) Septic shock: requiring pressors still on vasopressin; etio ? H flu bacteremia. 2) Acute respiratory failure: now on vent. Initial CXR not suggestive of pneumonia, low suspicion for PJP pneumonia especially since patient reported a good recent CD4 count. Repeat CXRs are probably more suggestive of fluid overload / pulmonary edema which has steadily been improving with diuretics. Anyways, patient on Atovaquone which will cover PJP. Avoiding Bactrim due to thrombocytopenia. 3) Haemophilus hemolyticus bacteremia: source unclear ?lung. Initial CXR not suggestive of pneumonia. 4) HIV positive: Apparently he has been HIV positive, used to be on meds - Genvoya but stopped taking it 6 months ago, states his last CD4 count was 400+. HIV RNA PCR and CD4 count pending. 5) Acute renal failure: resolved 6) Severe thrombocytopenia, coagulopathy: TTP v/s DIC- improving. [id number] pending. FELICIA neg, ANCA neg. C3 low (unclear significance), C4 normal 6) Cardiomyopathy: low EF. etiology unclear. ?HIV related. Cardiology following. Recs: - request CT head/sinus and chest to eval for source of bacteremia in light of p ersistent need for pressors - continue Cefepime 2 gm q12 hrs D5 - continue mepron (atovaquone) - HIV PCR and CD4 count pending - f/u repeat blood cultures ordered - remove right fem TLC as possible Discussed with Dr Bojorquez Will follow. Please call with questions. MD [facility] C: [phone] O: [phone] F: [phone] Subjective Date of service: 03/14/18 Principal diagnosis: low plt Interval history: Patient remains on vasopressin gtt at 0.03, on the vent fiO2 50%, p14, tmax 100.7. Objective - Exam Narrative Exam: Constitutional: sedated, intubated, on vent. Head, Ears, Nose: Normocephalic, atraumatic. External ears, nose normal Eyes: Conjunctivae/corneas clear. No icterus. No ptosis. Neck: Supple, no meningeal signs Oral: intubated, +ETT, +NGT Cardiovascular: RRR Respiratory: CTA ace GI: bowel sounds normal. No peritoneal signs Musculoskeletal: No pedal edema, no cyanosis. Skin: No rash or abscess Hem/Lymphatic: No palpable cervical or supraclavicular nodes. No lymphangitis Psych: sedated Neurological: sedated, intubated, exam limited Right fem TLC - Constitutional Vitals: Vital Signs Temp Pulse Resp BP Pulse Ox 100.2 F H 89 21 113/66 98 03/14/18 03:15 03/14/18 07:55 03/14/18 05:16 03/14/18 07:55 03/14/18 09:45 Temperature -Last 24 Hours Temperature 100.2 F Temperature 98.9 F Temperature 98.8 F Temperature 99.7 F Temperature 99.5 F - Labs CBC & Chem 7: 03/14/18 06:00 03/14/18 06:00 Labs: Abnormal lab results 03/13/18 03/13/18 03/13/18 Range/Units 12:22 12:44 17:27 WBC (4.5-11.0) K/mm3 RBC (3.65-5.03) M/mm3 Hgb (11.8-15.2) gm/dl Hct (35.5-45.6) % Plt Count (140-440) K/mm3 Seg Neuts % (Manual) (40.0-70.0) % Lymphocytes % (Manual) (13.4-35.0) % Seg Neutrophils # Man (1.8-7.7) K/mm3 Lymphocytes # (Manual) (1.2-5.4) K/mm3 Monocytes # (Manual) (0.0-0.8) K/mm3 POC ABG pH (7.35-7.45) POC ABG pCO2 (35-45) Sodium (137-145) mmol/L Chloride (98-107) mmol/L Carbon Dioxide (22-30) mmol/L BUN (9-20) mg/dL Glucose (75-100) mg/dL POC Glucose 208 H 169 H (70-105) Magnesium 3.00 H (1.7-2.3) mg/dL Iron (49-181) ug/dL Ferritin (13.0-400.0) ng/mL Total Creatine Kinase (55-170) units/L Triglycerides (2-149) mg/dL Vitamin B12 (211-911) pg/mL Folate (7.3-26.0) ng/mL 03/13/18 03/14/18 03/14/18 Range/Units 23:35 04:29 05:23 WBC (4.5-11.0) K/mm3 RBC (3.65-5.03) M/mm3 Hgb (11.8-15.2) gm/dl Hct (35.5-45.6) % Plt Count (140-440) K/mm3 Seg Neuts % (Manual) (40.0-70.0) % Lymphocytes % (Manual) (13.4-35.0) % Seg Neutrophils # Man (1.8-7.7) K/mm3 Lymphocytes # (Manual) (1.2-5.4) K/mm3 Monocytes # (Manual) (0.0-0.8) K/mm3 POC ABG pH 7.502 H (7.35-7.45) POC ABG pCO2 53.2 H (35-45) Sodium (137-145) mmol/L Chloride (98-107) mmol/L Carbon Dioxide (22-30) mmol/L BUN (9-20) mg/dL Glucose (75-100) mg/dL POC Glucose 256 H 212 H (70-105) Magnesium (1.7-2.3) mg/dL Iron (49-181) ug/dL Ferritin (13.0-400.0) ng/mL Total Creatine Kinase (55-170) units/L Triglycerides (2-149) mg/dL Vitamin B12 (211-911) pg/mL Folate (7.3-26.0) ng/mL 03/14/18 03/14/18 03/14/18 Range/Units 06:00 06:00 06:00 WBC 27.3 H (4.5-11.0) K/mm3 RBC 3.52 L (3.65-5.03) M/mm3 Hgb 10.0 L (11.8-15.2) gm/dl Hct 30.8 L (35.5-45.6) % Plt Count 50 L (140-440) K/mm3 Seg Neuts % (Manual) 87.0 H (40.0-70.0) % Lymphocytes % (Manual) 3.0 L (13.4-35.0) % Seg Neutrophils # Man 23.8 H (1.8-7.7) K/mm3 Lymphocytes # (Manual) 0.8 L (1.2-5.4) K/mm3 Monocytes # (Manual) 1.6 H (0.0-0.8) K/mm3 POC ABG pH (7.35-7.45) POC ABG pCO2 (35-45) Sodium 156 H D (137-145) mmol/L Chloride 109.5 H (98-107) mmol/L Carbon Dioxide 37 H (22-30) mmol/L BUN 70 H (9-20) mg/dL Glucose 202 H (75-100) mg/dL POC Glucose (70-105) Magnesium (1.7-2.3) mg/dL Iron (49-181) ug/dL Ferritin (13.0-400.0) ng/mL Total Creatine Kinase 17 L (55-170) units/L Triglycerides (2-149) mg/dL Vitamin B12 (211-911) pg/mL Folate (7.3-26.0) ng/mL 03/14/18 03/14/18 03/14/18 Range/Units 07:00 07:00 07:00 WBC (4.5-11.0) K/mm3 RBC (3.65-5.03) M/mm3 Hgb (11.8-15.2) gm/dl Hct (35.5-45.6) % Plt Count (140-440) K/mm3 Seg Neuts % (Manual) (40.0-70.0) % Lymphocytes % (Manual) (13.4-35.0) % Seg Neutrophils # Man (1.8-7.7) K/mm3 Lymphocytes # (Manual) (1.2-5.4) K/mm3 Monocytes # (Manual) (0.0-0.8) K/mm3 POC ABG pH (7.35-7.45) POC ABG pCO2 (35-45) Sodium (137-145) mmol/L Chloride (98-107) mmol/L Carbon Dioxide (22-30) mmol/L BUN (9-20) mg/dL Glucose (75-100) mg/dL POC Glucose (70-105) Magnesium (1.7-2.3) mg/dL Iron 42 L (49-181) ug/dL Ferritin 532.4 H (13.0-400.0) ng/mL Total Creatine Kinase (55-170) units/L Triglycerides (2-149) mg/dL Vitamin B12 1825 H (211-911) pg/mL Folate (7.3-26.0) ng/mL 03/14/18 03/14/18 Range/Units 07:00 07:00 WBC (4.5-11.0) K/mm3 RBC (3.65-5.03) M/mm3 Hgb (11.8-15.2) gm/dl Hct (35.5-45.6) % Plt Count (140-440) K/mm3 Seg Neuts % (Manual) (40.0-70.0) % Lymphocytes % (Manual) (13.4-35.0) % Seg Neutrophils # Man (1.8-7.7) K/mm3 Lymphocytes # (Manual) (1.2-5.4) K/mm3 Monocytes # (Manual) (0.0-0.8) K/mm3 POC ABG pH (7.35-7.45) POC ABG pCO2 (35-45) Sodium (137-145) mmol/L Chloride (98-107) mmol/L Carbon Dioxide (22-30) mmol/L BUN (9-20) mg/dL Glucose (75-100) mg/dL POC Glucose (70-105) Magnesium (1.7-2.3) mg/dL Iron (49-181) ug/dL Ferritin (13.0-400.0) ng/mL Total Creatine Kinase (55-170) units/L Triglycerides 532 H (2-149) mg/dL Vitamin B12 (211-911) pg/mL Folate 6.29 L (7.3-26.0) ng/mL
[2018-03-14] MEDS: HALDOL IV PRN (10:40)
[2018-03-14] MEDS: SUBLIMAZE IV PRN (10:50)
--- NOTE | 2018-03-14 11:04 | Progress Note ---
Assessment and Plan Acute renal failure, prerenal azotemia vs. ischemic ATN from hypotension Lactic acidosis hypernatremia Nausea and vomiting, likely gastroenteritis Hypokalemia Hypocalcemia Dilated Cardiomyopathy Acute Pulmonary Edema Thrombocytopenia Plan: - Cr cont to improve but now polyruric, likely secondary post ATN diuresis vs. diuretics use - Na cont to rise, water flushes increased to 250 cc Q4H, will start D5W 50 cc/h (D5W has minimal risk to worsen volume overload) - HIV 1&2 rapid antibody was reactive, ID on board, f/u recs - was given one dose of Diamox for alkalosis, will d/c sodium bicarb - Magnesium level pending - Renal US negative hydronephrosis - Cardiology, Hematology, Pulmonology, and ID on board - On pressors - Renally dose meds - Strict intake and output Subjective Date of service: 03/14/18 Principal diagnosis: low plt Interval history: sedated and intubated, family at bedside, all questions answered Objective - Vital Signs Vital signs: Vital Signs - 12hr 03/13/18 03/13/18 03/13/18 23:00 23:01 23:15 Temperature 98.9 F Pulse Rate 71 69 Pulse Rate [ From Monitor] Respiratory 19 20 Rate Blood Pressure 116/71 108/67 O2 Sat by Pulse 94 93 Oximetry 03/13/18 03/13/18 03/14/18 23:30 23:45 00:00 Temperature Pulse Rate 66 86 68 Pulse Rate [ 88 From Monitor] Respiratory 20 23 20 Rate Blood Pressure 110/64 116/66 106/60 O2 Sat by Pulse 94 95 Oximetry 03/14/18 03/14/18 03/14/18 00:16 00:30 00:31 Temperature Pulse Rate 82 67 73 Pulse Rate [ From Monitor] Respiratory 17 19 Rate Blood Pressure 120/66 108/62 108/62 O2 Sat by Pulse 97 94 99 Oximetry 03/14/18 03/14/18 03/14/18 00:45 01:00 01:15 Temperature Pulse Rate 69 68 94 H Pulse Rate [ From Monitor] Respiratory 17 20 20 Rate Blood Pressure 102/61 108/62 112/58 O2 Sat by Pulse 90 89 94 Oximetry 03/14/18 03/14/18 03/14/18 01:30 01:45 02:00 Temperature Pulse Rate 110 H 88 86 Pulse Rate [ From Monitor] Respiratory 31 H 19 21 Rate Blood Pressure 112/58 118/62 120/70 O2 Sat by Pulse 97 92 93 Oximetry 03/14/18 03/14/18 03/14/18 02:15 02:30 02:46 Temperature Pulse Rate 85 89 98 H Pulse Rate [ From Monitor] Respiratory 20 16 29 H Rate Blood Pressure 121/65 124/70 124/70 O2 Sat by Pulse 91 92 96 Oximetry 03/14/18 03/14/18 03/14/18 03:00 03:15 03:30 Temperature 100.2 F H Pulse Rate 107 H 88 82 Pulse Rate [ From Monitor] Respiratory 26 H 18 17 Rate Blood Pressure 130/85 107/61 108/63 O2 Sat by Pulse 95 90 88 Oximetry 03/14/18 03/14/18 03/14/18 03:40 03:45 04:00 Temperature Pulse Rate 87 97 H 80 Pulse Rate [ 90 From Monitor] Respiratory 19 20 Rate Blood Pressure 108/63 114/65 117/65 O2 Sat by Pulse 93 91 91 Oximetry 03/14/18 03/14/18 03/14/18 04:15 04:30 04:46 Temperature Pulse Rate 86 96 H 100 H Pulse Rate [ From Monitor] Respiratory 18 17 33 H Rate Blood Pressure 119/67 120/65 122/78 O2 Sat by Pulse 90 91 96 Oximetry 03/14/18 03/14/18 03/14/18 05:00 05:16 07:55 Temperature Pulse Rate 87 106 H 89 Pulse Rate [ From Monitor] Respiratory 16 21 Rate Blood Pressure 114/70 114/70 113/66 O2 Sat by Pulse 93 99 98 Oximetry 03/14/18 09:45 Temperature Pulse Rate Pulse Rate [ From Monitor] Respiratory Rate Blood Pressure O2 Sat by Pulse 98 Oximetry - General Appearance General appearance: well-developed, well-nourished EENT: ATNC, PERRL, mucous membranes moist Neck: no JVD, no carotid bruit Respiratory: Present: Rales, Decreased Breath Sounds Cardiology: tachycardia, S1S2 Gastrointestinal: normoactive bowel sounds, no tenderness, no distended Integumentary: no rash, warm and dry Neurologic: other (intubated and sedated) Musculoskeletal: other (no edema in BLE) Psychiatric: other (sedated and intubated) - Lab 03/14/18 06:00 03/14/18 06:00 Most recent lab results Calcium 8.7 mg/dL (8.4-10.2) 03/14/18 06:00 Phosphorus 2.70 mg/dL (2.5-4.5) D 03/14/18 06:00 Magnesium 3.00 mg/dL (1.7-2.3) H 03/13/18 12:44 Urine Creatinine 210.7 mg/dL (0.1-20.0) H 03/09/18 14:39 Urine Sodium 36 mmol/L 03/09/18 14:39 Urine Total Protein 820 mg/dL (5-11.8) H 03/09/18 14:39 Medications & Allergies - Medications Allergies/Adverse Reactions: Allergies clindamycin Allergy (Verified 03/09/18 06:43) Swelling Home Medications: Home Medications Medication Instructions Recorded Confirmed Last Taken Type No Known Home Medications [No 03/09/18 03/09/18 Unknown History Reported Home Medications] Active Medications: Generic Name Dose Route Start Last Admin Trade Name Freq PRN Reason Stop Dose Admin Lipase/Protease/Amylase 1 each 03/12/18 12:[address] 10,500 Unit FEEDTUBE PRN PRN For Clogged Feeding Tube Atovaquone 1,500 mg 03/11/18 20:00 03/14/18 10:21 Mepron PO 1,500 mg QDAY LIU Administration Dextrose 50 ml 03/09/18 16:15 D50w (25gm) Syringe IV PRN PRN HYPOGLYCEMIA Fentanyl 50 mcg 03/14/18 09:44 Sublimaze IV Q2H PRN Pain , Severe (7-10) Haloperidol Lactate 5 mg 03/12/18 02:15 03/12/18 02:41 Haldol IV 5 mg Q6H PRN Administration Agitation Hydrophilic Ointment 1 applic 03/12/18 07:47 03/13/18 11:34 Vaseline Lip Therapy TP 1 applic Q2HR PRN Administration Dry Lips Norepinephrine 4 mg in 250 mls @ 7.5 mls/hr 03/09/18 23:45 03/12/18 13:57 Levophed Drip 4 Mg/Ns 250 Ml IV 0 mcg/min TITR LIU 0 mls/hr Titration Protocol 2 MCG/MIN Vasopressin 20 unit/ Sodium 101 mls @ 9.09 mls/hr 03/10/18 11:00 03/14/18 01:22 Chloride IV 0.03 units/min TITR LIU 9.09 mls/hr Administration Protocol 0.03 UNITS/MIN Dexamethasone 20 mg/ Sodium 55 mls @ 100 mls/hr 03/11/18 11:30 03/14/18 10:24 Chloride IV 100 mls/hr Q12HR LIU Administration Propofol 1,000 mg in 100 mls @ 2.721 mls/hr 03/12/18 08:00 03/14/18 04:25 Diprivan 10 Mg/Ml IV 50 mcg/kg/min TITR LIU 27.21 mls/hr Administration Protocol 5 MCG/KG/MIN Cefepime HCl 2 gm in 100 mls @ 200 mls/hr 03/13/18 10:00 03/14/18 10:23 Maxipime/Ns 2 Gm/100 Ml IV 200 mls/hr Q12HR LIU Administration Fentanyl Citrate 2,000 mcg in 100 mls @ 4.535 mls/hr 03/14/18 10:00 Fentanyl Drip Premix IV TITR LIU Protocol 1 MCG/KG/HR Insulin Human Lispro 0 unit 03/14/18 12:00 Humalog SUB-Q Q6HR [facility] Protocol Lansoprazole 30 mg 03/14/18 10:00 03/14/18 10:23 Prevacid Solutab FEEDTUBE 30 mg QDAY LIU Administration Lorazepam 1 mg 03/11/18 16:56 03/14/18 07:48 Ativan IV 1 mg Q4H PRN Administration Anxiety Morphine Sulfate 2 mg 03/14/18 05:25 03/14/18 07:49 Morphine IV 2 mg Q4H PRN Administration Pain, Moderate (4-6) Multi-Ingred Cream/Lotion/Oil/Oint 1 applic 03/12/18 07:47 Artificial Tears Ophth Oint OU Q4HR PRN Dry Eye(s) Ondansetron HCl 4 mg 03/14/18 08:00 Zofran IV Q8H PRN Nausea And Vomiting Simple Syrup 15 ml 03/12/18 12:58 Simple Syrup FEEDTUBE PRN PRN Hypoglycemia Simple Syrup 30 ml 03/12/18 12:58 Simple Syrup FEEDTUBE PRN PRN Hypoglycemia Sodium Bicarbonate 325 mg 03/12/18 12:58 Sodium Bicarbonate FEEDTUBE PRN PRN For Clogged Feeding Tube Sodium Chloride 10 ml 03/09/18 22:00 03/14/18 10:25 Sodium Chloride Flush Syringe 10 Ml IV 10 ml BID LIU Administration Sodium Chloride 10 ml 03/09/18 10:41 Sodium Chloride Flush Syringe 10 Ml IV PRN PRN LINE FLUSH
[2018-03-14] MEDS: fentaNYL DRIP Premix 2,000 MCG/100 ML BAG IV SCH ×3 (11:30→21:07)
--- NOTE | 2018-03-14 11:48 | Progress Note ---
Assessment and Plan Acute respiratory failure K[facility]UD[facility] HIV ITP Cardiomyopathy with ejection fraction of 25% Recommendations Long discussion with ID about current findings. If there is any concern about additional source of infection, I agree with chest CT scanning evaluation including chest head and paranasal sinus. This might help to establish the Haemophilus source Hemodynamically stable, he appears to be stable so we'll continue to wean OF vasopressin f/u hospital ventilator bundle, Mechanical ventilation support, adjust FiO2 with goal of maintaining oximetry at or above 92% Titrate PEEP (just decreased to 12) up to maintain oximetry of the above oximetry level Set tidal Volume set initially at 6-8 cm PBW for AVERY protection Keep PIP < 30 Sedation as needed for patient comfort, adjust to RASS -1 to - 3 Maintain extubation precautions Daily morning sedation vacation and initiate SBT if deemed appropriate DVT prophylaxis PPI prophylaxis Adjust fentanyl drip Nursing requesting change to PICC line, if additional pressors again needed Critical care time was 31 minutes of [id number] evaluation and coordination of care Subjective Date of service: 03/14/18 Principal diagnosis: acute respiratory failure, sepsis, HIB, ITP Interval history: Sedated and intubated Objective Vital Signs - 12hr 03/14/18 03/14/18 03/14/18 00:00 00:16 00:30 Temperature Pulse Rate 68 82 67 Pulse Rate [ 88 From Monitor] Respiratory 20 17 19 Rate Blood Pressure 106/60 120/66 108/62 O2 Sat by Pulse 95 97 94 Oximetry 03/14/18 03/14/18 03/14/18 00:31 00:45 01:00 Temperature Pulse Rate 73 69 68 Pulse Rate [ From Monitor] Respiratory 17 20 Rate Blood Pressure 108/62 102/61 108/62 O2 Sat by Pulse 99 90 89 Oximetry 03/14/18 03/14/18 03/14/18 01:15 01:30 01:45 Temperature Pulse Rate 94 H 110 H 88 Pulse Rate [ From Monitor] Respiratory 20 31 H 19 Rate Blood Pressure 112/58 112/58 118/62 O2 Sat by Pulse 94 97 92 Oximetry 03/14/18 03/14/18 03/14/18 02:00 02:15 02:30 Temperature Pulse Rate 86 85 89 Pulse Rate [ From Monitor] Respiratory 21 20 16 Rate Blood Pressure 120/70 121/65 124/70 O2 Sat by Pulse 93 91 92 Oximetry 03/14/18 03/14/1819 02:46 03:00 03:15 Temperature 100.2 F H Pulse Rate 98 H 107 H 88 Pulse Rate [ From Monitor] Respiratory 29 H 26 H 18 Rate Blood Pressure 124/70 130/85 107/61 O2 Sat by Pulse 96 95 90 Oximetry 03/14/18 03/14/18 03/14/18 03:30 03:40 03:45 Temperature Pulse Rate 82 87 97 H Pulse Rate [ From Monitor] Respiratory 17 19 Rate Blood Pressure 108/63 108/63 114/65 O2 Sat by Pulse 88 93 91 Oximetry 03/14/18 03/14/18 03/14/18 04:00 04:15 04:30 Temperature Pulse Rate 80 86 96 H Pulse Rate [ 90 From Monitor] Respiratory 20 18 17 Rate Blood Pressure 117/65 119/67 120/65 O2 Sat by Pulse 91 90 91 Oximetry 03/14/18 03/14/18 03/14/18 04:46 05:00 05:16 Temperature Pulse Rate 100 H 87 106 H Pulse Rate [ From Monitor] Respiratory 33 H 16 21 Rate Blood Pressure 122/78 114/70 114/70 O2 Sat by Pulse 96 93 99 Oximetry 03/14/18 03/14/18 03/14/18 07:55 09:45 10:50 Temperature Pulse Rate 89 Pulse Rate [ From Monitor] Respiratory 22 Rate Blood Pressure 113/66 O2 Sat by Pulse 98 98 Oximetry Constitutional: asleep, appears uncomfortable Eyes: non-icteric ENT: oropharynx dry, other (orally intubated and sedated) Neck: supple Effort: mildly labored Ascultation: Bilateral: clear, diminished breath sounds, rales (OCCASIONAL) Percussion: Bilateral: not dull Cardiovascular: regular rate and rhythm, other (sinus tach) Gastrointestinal: normoactive bowel sounds, non-tender Integumentary: normal Extremities: no cyanosis, no edema, pink and warm Neurologic: unable to assess, other (RA SS -1) CBC and BMP: 03/14/18 06:00 03/14/18 06:00 ABG, PT/INR, D-dimer: ABG POC ABG pH 7.502 (7.35-7.45) H 03/14/18 04:29 POC ABG pCO2 53.2 (35-45) H 03/14/18 04:29 POC ABG pO2 83 (80-105) 03/14/18 04:29 POC ABG HCO3 41.7 03/14/18 04:29 POC ABG Total CO2 43 03/14/18 04:29 POC ABG O2 Sat 97 03/14/18 04:29 PT/INR, D-dimer PT 17.2 Sec. (12.2-14.9) H 03/10/18 18:15 INR 1.36 (0.87-1.13) H 03/10/18 18:15 Abnormal lab findings: Abnormal Labs 03/09/18 03/09/18 03/09/18 07:00 07:00 07:00 WBC RBC Hgb Hct RDW 15.5 H Plt Count 25 L Seg Neuts % (Manual) 90.0 H Lymphocytes % (Manual) 5.0 L Monocytes % (Manual) Seg Neutrophils # Man Lymphocytes # (Manual) 0.4 L Monocytes # (Manual) PT 22.9 H INR 1.98 H APTT Fibrinogen POC ABG pH POC ABG pCO2 POC ABG pO2 VBG pH Sodium 135 L Potassium Chloride 90.8 L Carbon Dioxide 17 L BUN 45 H Creatinine 5.8 H Glucose 72 L POC Glucose Lactic Acid Calcium 7.6 L Phosphorus Magnesium Iron Ferritin Total Bilirubin Direct Bilirubin Alkaline Phosphatase 154 H Lactate Dehydrogenase Total Creatine Kinase NT-Pro-B Natriuret Pep Total Protein Albumin 3.6 L Triglycerides Vitamin B12 Folate Urine WBC (Auto) Urine Creatinine Urine Total Protein Complement C3 03/09/18 03/09/18 03/09/18 07:00 07:00 07:00 WBC RBC Hgb Hct RDW Plt Count Seg Neuts % (Manual) Lymphocytes % (Manual) Monocytes % (Manual) Seg Neutrophils # Man Lymphocytes # (Manual) Monocytes # (Manual) PT INR APTT Fibrinogen POC ABG pH POC ABG pCO2 POC ABG pO2 VBG pH 7.297 L Sodium Potassium Chloride Carbon Dioxide BUN Creatinine Glucose POC Glucose Lactic Acid 6.80 H* Calcium Phosphorus 5.40 H Magnesium 1.20 L Iron Ferritin Total Bilirubin Direct Bilirubin Alkaline Phosphatase Lactate Dehydrogenase Total Creatine Kinase 228 H NT-Pro-B Natriuret Pep Total Protein Albumin Triglycerides Vitamin B12 Folate Urine WBC (Auto) Urine Creatinine Urine Total Protein Complement C3 03/09/18 03/09/18 03/09/18 09:22 12:36 14:39 WBC RBC Hgb Hct RDW Plt Count Seg Neuts % (Manual) Lymphocytes % (Manual) Monocytes % (Manual) Seg Neutrophils # Man Lymphocytes # (Manual) Monocytes # (Manual) PT INR APTT Fibrinogen POC ABG pH POC ABG pCO2 POC ABG pO2 VBG pH Sodium Potassium Chloride Carbon Dioxide BUN Creatinine Glucose POC Glucose Lactic Acid 5.90 H* 8.30 H* Calcium Phosphorus Magnesium Iron Ferritin Total Bilirubin Direct Bilirubin Alkaline Phosphatase Lactate Dehydrogenase Total Creatine Kinase NT-Pro-B Natriuret Pep Total Protein Albumin Triglycerides Vitamin B12 Folate Urine WBC (Auto) 86.0 H Urine Creatinine Urine Total Protein Complement C3 03/09/18 03/09/18 03/09/18 14:39 14:39 15:12 WBC RBC Hgb Hct RDW Plt Count Seg Neuts % (Manual) Lymphocytes % (Manual) Monocytes % (Manual) Seg Neutrophils # Man Lymphocytes # (Manual) Monocytes # (Manual) PT INR APTT Fibrinogen POC ABG pH POC ABG pCO2 POC ABG pO2 VBG pH Sodium Potassium Chloride Carbon Dioxide BUN Creatinine Glucose POC Glucose Lactic Acid 5.90 H* Calcium Phosphorus Magnesium Iron Ferritin Total Bilirubin Direct Bilirubin Alkaline Phosphatase Lactate Dehydrogenase Total Creatine Kinase NT-Pro-B Natriuret Pep Total Protein Albumin Triglycerides Vitamin B12 Folate Urine WBC (Auto) Urine Creatinine 217.1 H 210.7 H Urine Total Protein 820 H Complement C3 03/09/18 03/09/18 03/09/18 15:53 18:20 20:39 WBC RBC Hgb Hct RDW Plt Count Seg Neuts % (Manual) Lymphocytes % (Manual) Monocytes % (Manual) Seg Neutrophils # Man Lymphocytes # (Manual) Monocytes # (Manual) PT INR APTT Fibrinogen POC ABG pH POC ABG pCO2 POC ABG pO2 VBG pH Sodium Potassium Chloride Carbon Dioxide BUN Creatinine Glucose POC Glucose 56 L Lactic Acid 5.10 H* 4.40 H* Calcium Phosphorus Magnesium Iron Ferritin Total Bilirubin Direct Bilirubin Alkaline Phosphatase Lactate Dehydrogenase Total Creatine Kinase NT-Pro-B Natriuret Pep Total Protein Albumin Triglycerides Vitamin B12 Folate Urine WBC (Auto) Urine Creatinine Urine Total Protein Complement C3 03/09/18 03/09/18 03/09/18 20:39 21:33 23:08 WBC RBC Hgb Hct RDW Plt Count Seg Neuts % (Manual) Lymphocytes % (Manual) Monocytes % (Manual) Seg Neutrophils # Man Lymphocytes # (Manual) Monocytes # (Manual) PT INR APTT Fibrinogen POC ABG pH POC ABG pCO2 POC ABG pO2 VBG pH Sodium Potassium Chloride Carbon Dioxide BUN Creatinine Glucose POC Glucose Lactic Acid 4.90 H* 4.10 H* Calcium Phosphorus Magnesium Iron Ferritin Total Bilirubin Direct Bilirubin Alkaline Phosphatase Lactate Dehydrogenase Total Creatine Kinase NT-Pro-B Natriuret Pep Total Protein Albumin Triglycerides Vitamin B12 Folate Urine WBC (Auto) Urine Creatinine Urine Total Protein Complement C3 77 L 03/10/18 03/10/18 03/10/18 01:00 04:40 04:40 WBC 11.8 H RBC Hgb 11.7 L Hct RDW Plt Count 8 L* Seg Neuts % (Manual) 93.0 H Lymphocytes % (Manual) 4.0 L Monocytes % (Manual) Seg Neutrophils # Man 11.0 H Lymphocytes # (Manual) 0.5 L Monocytes # (Manual) PT INR APTT Fibrinogen POC ABG pH POC ABG pCO2 POC ABG pO2 VBG pH Sodium 136 L Potassium Chloride 96.6 L Carbon Dioxide 21 L BUN 62 H Creatinine 4.9 H Glucose POC Glucose Lactic Acid 4.10 H* Calcium 6.2 L D Phosphorus Magnesium Iron Ferritin Total Bilirubin Direct Bilirubin Alkaline Phosphatase Lactate Dehydrogenase Total Creatine Kinase NT-Pro-B Natriuret Pep Total Protein Albumin Triglycerides Vitamin B12 Folate Urine WBC (Auto) Urine Creatinine Urine Total Protein Complement C3 03/10/18 03/10/18 03/10/18 05:32 06:00 09:10 WBC RBC Hgb Hct RDW Plt Count Seg Neuts % (Manual) Lymphocytes % (Manual) Monocytes % (Manual) Seg Neutrophils # Man Lymphocytes # (Manual) Monocytes # (Manual) PT INR APTT Fibrinogen POC ABG pH 7.254 L POC ABG pCO2 47.8 H POC ABG pO2 59 L VBG pH Sodium Potassium Chloride Carbon Dioxide BUN Creatinine Glucose POC Glucose 56 L Lactic Acid Calcium Phosphorus Magnesium Iron Ferritin Total Bilirubin Direct Bilirubin Alkaline Phosphatase Lactate Dehydrogenase Total Creatine Kinase NT-Pro-B Natriuret Pep Total Protein Albumin Triglycerides Vitamin B12 Folate Urine WBC (Auto) 32.0 H Urine Creatinine Urine Total Protein Complement C3 03/10/18 03/10/18 03/10/18 09:14 11:16 11:16 WBC RBC Hgb Hct RDW Plt Count Seg Neuts % (Manual) Lymphocytes % (Manual) Monocytes % (Manual) Seg Neutrophils # Man Lymphocytes # (Manual) Monocytes # (Manual) PT INR APTT Fibrinogen POC ABG pH 7.266 L POC ABG pCO2 POC ABG pO2 VBG pH Sodium Potassium Chloride Carbon Dioxide BUN Creatinine Glucose POC Glucose Lactic Acid Calcium Phosphorus Magnesium Iron Ferritin Total Bilirubin Direct Bilirubin Alkaline Phosphatase Lactate Dehydrogenase 338 H Total Creatine Kinase 404 H NT-Pro-B Natriuret Pep 16032 H Total Protein Albumin Triglycerides Vitamin B12 Folate Urine WBC (Auto) Urine Creatinine Urine Total Protein Complement C3 03/10/18 03/10/18 03/10/18 11:51 18:15 18:15 WBC RBC Hgb Hct RDW Plt Count Seg Neuts % (Manual) Lymphocytes % (Manual) Monocytes % (Manual) Seg Neutrophils # Man Lymphocytes # (Manual) Monocytes # (Manual) PT 17.2 H 17.0 H INR 1.36 H 1.34 H APTT 38.5 H Fibrinogen 852 H POC ABG pH POC ABG pCO2 POC ABG pO2 VBG pH Sodium Potassium Chloride Carbon Dioxide BUN Creatinine Glucose POC Glucose 109 H Lactic Acid Calcium Phosphorus Magnesium Iron Ferritin Total Bilirubin Direct Bilirubin Alkaline Phosphatase Lactate Dehydrogenase Total Creatine Kinase NT-Pro-B Natriuret Pep Total Protein Albumin Triglycerides Vitamin B12 Folate Urine WBC (Auto) Urine Creatinine Urine Total Protein Complement C3 03/10/18 03/10/18 03/10/18 19:45 20:40 22:07 WBC RBC Hgb Hct RDW Plt Count Seg Neuts % (Manual) Lymphocytes % (Manual) Monocytes % (Manual) Seg Neutrophils # Man Lymphocytes # (Manual) Monocytes # (Manual) PT INR APTT Fibrinogen POC ABG pH POC ABG pCO2 POC ABG pO2 VBG pH Sodium Potassium Chloride Carbon Dioxide BUN Creatinine Glucose POC Glucose 136 H 135 H 135 H Lactic Acid Calcium Phosphorus Magnesium Iron Ferritin Total Bilirubin Direct Bilirubin Alkaline Phosphatase Lactate Dehydrogenase Total Creatine Kinase NT-Pro-B Natriuret Pep Total Protein Albumin Triglycerides Vitamin B12 Folate Urine WBC (Auto) Urine Creatinine Urine Total Protein Complement C3 03/10/18 03/11/18 03/11/18 23:06 00:07 02:01 WBC RBC Hgb Hct RDW Plt Count Seg Neuts % (Manual) Lymphocytes % (Manual) Monocytes % (Manual) Seg Neutrophils # Man Lymphocytes # (Manual) Monocytes # (Manual) PT INR APTT Fibrinogen POC ABG pH POC ABG pCO2 POC ABG pO2 VBG pH Sodium Potassium Chloride Carbon Dioxide BUN Creatinine Glucose POC Glucose 133 H 148 H 161 H Lactic Acid Calcium Phosphorus Magnesium Iron Ferritin Total Bilirubin Direct Bilirubin Alkaline Phosphatase Lactate Dehydrogenase Total Creatine Kinase NT-Pro-B Natriuret Pep Total Protein Albumin Triglycerides Vitamin B12 Folate Urine WBC (Auto) Urine Creatinine Urine Total Protein Complement C3 03/11/18 03/11/18 03/11/18 03:10 04:12 04:50 WBC 12.8 H RBC Hgb 10.9 L Hct 32.5 L RDW 15.3 H Plt Count 17 L* D Seg Neuts % (Manual) 96.0 H Lymphocytes % (Manual) 2.0 L Monocytes % (Manual) Seg Neutrophils # Man 12.3 H Lymphocytes # (Manual) 0.3 L Monocytes # (Manual) PT INR APTT Fibrinogen POC ABG pH POC ABG pCO2 POC ABG pO2 VBG pH Sodium Potassium Chloride Carbon Dioxide BUN Creatinine Glucose POC Glucose 189 H 188 H Lactic Acid Calcium Phosphorus Magnesium Iron Ferritin Total Bilirubin Direct Bilirubin Alkaline Phosphatase Lactate Dehydrogenase Total Creatine Kinase NT-Pro-B Natriuret Pep Total Protein Albumin Triglycerides Vitamin B12 Folate Urine WBC (Auto) Urine Creatinine Urine Total Protein Complement C3 03/11/18 03/11/18 03/11/18 04:50 05:30 05:33 WBC RBC Hgb Hct RDW Plt Count Seg Neuts % (Manual) Lymphocytes % (Manual) Monocytes % (Manual) Seg Neutrophils # Man Lymphocytes # (Manual) Monocytes # (Manual) PT INR APTT Fibrinogen POC ABG pH POC ABG pCO2 POC ABG pO2 58 L VBG pH Sodium Potassium Chloride 94.2 L Carbon Dioxide BUN 62 H Creatinine 2.7 H Glucose 191 H POC Glucose 187 H Lactic Acid Calcium 7.9 L D Phosphorus Magnesium Iron Ferritin Total Bilirubin Direct Bilirubin Alkaline Phosphatase Lactate Dehydrogenase Total Creatine Kinase NT-Pro-B Natriuret Pep Total Protein Albumin Triglycerides Vitamin B12 Folate Urine WBC (Auto) Urine Creatinine Urine Total Protein Complement C3 03/11/18 03/11/18 03/11/18 07:47 12:11 13:18 WBC RBC Hgb Hct RDW Plt Count Seg Neuts % (Manual) Lymphocytes % (Manual) Monocytes % (Manual) Seg Neutrophils # Man Lymphocytes # (Manual) Monocytes # (Manual) PT INR APTT Fibrinogen POC ABG pH POC ABG pCO2 POC ABG pO2 VBG pH Sodium Potassium Chloride Carbon Dioxide BUN Creatinine Glucose POC Glucose 151 H 166 H 157 H Lactic Acid Calcium Phosphorus Magnesium Iron Ferritin Total Bilirubin Direct Bilirubin Alkaline Phosphatase Lactate Dehydrogenase Total Creatine Kinase NT-Pro-B Natriuret Pep Total Protein Albumin Triglycerides Vitamin B12 Folate Urine WBC (Auto) Urine Creatinine Urine Total Protein Complement C3 03/11/18 03/11/18 03/11/18 14:26 14:48 15:15 WBC 21.2 H RBC Hgb 11.0 L Hct 33.8 L RDW Plt Count 15 L* Seg Neuts % (Manual) 92.0 H Lymphocytes % (Manual) 4.0 L Monocytes % (Manual) Seg Neutrophils # Man 19.5 H Lymphocytes # (Manual) 0.8 L Monocytes # (Manual) PT INR APTT Fibrinogen POC ABG pH POC ABG pCO2 POC ABG pO2 VBG pH Sodium Potassium Chloride Carbon Dioxide BUN Creatinine Glucose POC Glucose 145 H 139 H Lactic Acid Calcium Phosphorus Magnesium Iron Ferritin Total Bilirubin Direct Bilirubin Alkaline Phosphatase Lactate Dehydrogenase Total Creatine Kinase NT-Pro-B Natriuret Pep Total Protein Albumin Triglycerides Vitamin B12 Folate Urine WBC (Auto) Urine Creatinine Urine Total Protein Complement C3 03/11/18 03/11/18 03/11/18 16:17 17:48 20:16 WBC RBC Hgb Hct RDW Plt Count Seg Neuts % (Manual) Lymphocytes % (Manual) Monocytes % (Manual) Seg Neutrophils # Man Lymphocytes # (Manual) Monocytes # (Manual) PT INR APTT Fibrinogen POC ABG pH POC ABG pCO2 POC ABG pO2 VBG pH Sodium Potassium Chloride Carbon Dioxide BUN Creatinine Glucose POC Glucose 145 H 142 H 158 H Lactic Acid Calcium Phosphorus Magnesium Iron Ferritin Total Bilirubin Direct Bilirubin Alkaline Phosphatase Lactate Dehydrogenase Total Creatine Kinase NT-Pro-B Natriuret Pep Total Protein Albumin Triglycerides Vitamin B12 Folate Urine WBC (Auto) Urine Creatinine Urine Total Protein Complement C3 03/11/18 03/11/18 03/12/18 21:02 23:14 00:54 WBC 29.6 H RBC Hgb 10.6 L Hct 31.3 L RDW Plt Count 51 L D Seg Neuts % (Manual) Lymphocytes % (Manual) Monocytes % (Manual) Seg Neutrophils # Man Lymphocytes # (Manual) Monocytes # (Manual) PT INR APTT Fibrinogen POC ABG pH POC ABG pCO2 POC ABG pO2 VBG pH Sodium Potassium Chloride Carbon Dioxide BUN Creatinine Glucose POC Glucose 146 H 168 H Lactic Acid Calcium Phosphorus Magnesium Iron Ferritin Total Bilirubin Direct Bilirubin Alkaline Phosphatase Lactate Dehydrogenase Total Creatine Kinase NT-Pro-B Natriuret Pep Total Protein Albumin Triglycerides Vitamin B12 Folate Urine WBC (Auto) Urine Creatinine Urine Total Protein Complement C3 03/12/18 03/12/18 03/12/18 06:19 06:29 06:29 WBC 32.7 H RBC Hgb 10.5 L Hct 31.7 L RDW 15.3 H Plt Count 34 L Seg Neuts % (Manual) 81.5 H Lymphocytes % (Manual) 7.0 L Monocytes % (Manual) 7.5 H Seg Neutrophils # Man 26.7 H Lymphocytes # (Manual) Monocytes # (Manual) 2.5 H PT INR APTT Fibrinogen POC ABG pH POC ABG pCO2 POC ABG pO2 VBG pH Sodium Potassium 3.4 L Chloride Carbon Dioxide BUN 69 H Creatinine 2.2 H Glucose 181 H POC Glucose 185 H Lactic Acid Calcium Phosphorus Magnesium Iron Ferritin Total Bilirubin Direct Bilirubin Alkaline Phosphatase Lactate Dehydrogenase Total Creatine Kinase NT-Pro-B Natriuret Pep Total Protein Albumin Triglycerides Vitamin B12 Folate Urine WBC (Auto) Urine Creatinine Urine Total Protein Complement C3 03/12/18 03/12/18 03/12/18 06:29 07:21 07:44 WBC RBC Hgb Hct RDW Plt Count Seg Neuts % (Manual) Lymphocytes % (Manual) Monocytes % (Manual) Seg Neutrophils # Man Lymphocytes # (Manual) Monocytes # (Manual) PT INR APTT Fibrinogen POC ABG pH 7.337 L POC ABG pCO2 54.9 H POC ABG pO2 59 L VBG pH Sodium Potassium Chloride Carbon Dioxide BUN Creatinine Glucose POC Glucose 157 H Lactic Acid Calcium Phosphorus Magnesium Iron Ferritin Total Bilirubin 2.30 H Direct Bilirubin 1.5 H Alkaline Phosphatase Lactate Dehydrogenase Total Creatine Kinase NT-Pro-B Natriuret Pep Total Protein 6.2 L Albumin 3.1 L Triglycerides Vitamin B12 Folate Urine WBC (Auto) Urine Creatinine Urine Total Protein Complement C3 03/12/18 03/12/18 03/12/18 10:16 12:53 15:22 WBC RBC Hgb Hct RDW Plt Count Seg Neuts % (Manual) Lymphocytes % (Manual) Monocytes % (Manual) Seg Neutrophils # Man Lymphocytes # (Manual) Monocytes # (Manual) PT INR APTT Fibrinogen POC ABG pH POC ABG pCO2 61.7 H POC ABG pO2 110 H VBG pH Sodium Potassium Chloride Carbon Dioxide BUN Creatinine Glucose POC Glucose 153 H 148 H Lactic Acid Calcium Phosphorus Magnesium Iron Ferritin Total Bilirubin Direct Bilirubin Alkaline Phosphatase Lactate Dehydrogenase Total Creatine Kinase NT-Pro-B Natriuret Pep Total Protein Albumin Triglycerides Vitamin B12 Folate Urine WBC (Auto) Urine Creatinine Urine Total Protein Complement C3 03/12/18 03/12/18 03/13/18 18:17 21:34 01:14 WBC RBC Hgb Hct RDW Plt Count Seg Neuts % (Manual) Lymphocytes % (Manual) Monocytes % (Manual) Seg Neutrophils # Man Lymphocytes # (Manual) Monocytes # (Manual) PT INR APTT Fibrinogen POC ABG pH POC ABG pCO2 POC ABG pO2 VBG pH Sodium Potassium Chloride Carbon Dioxide BUN Creatinine Glucose POC Glucose 148 H 161 H 187 H Lactic Acid Calcium Phosphorus Magnesium Iron Ferritin Total Bilirubin Direct Bilirubin Alkaline Phosphatase Lactate Dehydrogenase Total Creatine Kinase NT-Pro-B Natriuret Pep Total Protein Albumin Triglycerides Vitamin B12 Folate Urine WBC (Auto) Urine Creatinine Urine Total Protein Complement C3 03/13/18 03/13/18 03/13/18 04:37 05:22 05:22 WBC 30.4 H RBC 3.45 L Hgb 9.8 L Hct 29.7 L RDW Plt Count 37 L Seg Neuts % (Manual) 75.5 H Lymphocytes % (Manual) 3.0 L Monocytes % (Manual) Seg Neutrophils # Man 23.0 H Lymphocytes # (Manual) 0.9 L Monocytes # (Manual) PT INR APTT Fibrinogen POC ABG pH POC ABG pCO2 60.2 H POC ABG pO2 115 H VBG pH Sodium 146 H Potassium Chloride Carbon Dioxide 35 H D BUN 71 H Creatinine 1.7 H Glucose 187 H POC Glucose Lactic Acid Calcium Phosphorus Magnesium Iron Ferritin Total Bilirubin Direct Bilirubin Alkaline Phosphatase Lactate Dehydrogenase Total Creatine Kinase NT-Pro-B Natriuret Pep Total Protein Albumin Triglycerides Vitamin B12 Folate Urine WBC (Auto) Urine Creatinine Urine Total Protein Complement C3 03/13/18 03/13/18 03/13/18 08:24 12:22 12:44 WBC RBC Hgb Hct RDW Plt Count Seg Neuts % (Manual) Lymphocytes % (Manual) Monocytes % (Manual) Seg Neutrophils # Man Lymphocytes # (Manual) Monocytes # (Manual) PT INR APTT Fibrinogen POC ABG pH POC ABG pCO2 POC ABG pO2 VBG pH Sodium Potassium Chloride Carbon Dioxide BUN Creatinine Glucose POC Glucose 210 H 208 H Lactic Acid Calcium Phosphorus Magnesium 3.00 H Iron Ferritin Total Bilirubin Direct Bilirubin Alkaline Phosphatase Lactate Dehydrogenase Total Creatine Kinase NT-Pro-B Natriuret Pep Total Protein Albumin Triglycerides Vitamin B12 Folate Urine WBC (Auto) Urine Creatinine Urine Total Protein Complement C3 03/13/18 03/13/18 03/14/18 17:27 23:35 04:29 WBC RBC Hgb Hct RDW Plt Count Seg Neuts % (Manual) Lymphocytes % (Manual) Monocytes % (Manual) Seg Neutrophils # Man Lymphocytes # (Manual) Monocytes # (Manual) PT INR APTT Fibrinogen POC ABG pH 7.502 H POC ABG pCO2 53.2 H POC ABG pO2 VBG pH Sodium Potassium Chloride Carbon Dioxide BUN Creatinine Glucose POC Glucose 169 H 256 H Lactic Acid Calcium Phosphorus Magnesium Iron Ferritin Total Bilirubin Direct Bilirubin Alkaline Phosphatase Lactate Dehydrogenase Total Creatine Kinase NT-Pro-B Natriuret Pep Total Protein Albumin Triglycerides Vitamin B12 Folate Urine WBC (Auto) Urine Creatinine Urine Total Protein Complement C3 03/14/18 03/14/18 03/14/18 05:23 06:00 06:00 WBC 27.3 H RBC 3.52 L Hgb 10.0 L Hct 30.8 L RDW Plt Count 50 L Seg Neuts % (Manual) 87.0 H Lymphocytes % (Manual) 3.0 L Monocytes % (Manual) Seg Neutrophils # Man 23.8 H Lymphocytes # (Manual) 0.8 L Monocytes # (Manual) 1.6 H PT INR APTT Fibrinogen POC ABG pH POC ABG pCO2 POC ABG pO2 VBG pH Sodium Potassium Chloride Carbon Dioxide BUN Creatinine Glucose POC Glucose 212 H Lactic Acid Calcium Phosphorus Magnesium Iron Ferritin Total Bilirubin Direct Bilirubin Alkaline Phosphatase Lactate Dehydrogenase Total Creatine Kinase 17 L NT-Pro-B Natriuret Pep Total Protein Albumin Triglycerides Vitamin B12 Folate Urine WBC (Auto) Urine Creatinine Urine Total Protein Complement C3 03/14/18 03/14/18 03/14/18 06:00 07:00 07:00 WBC RBC Hgb Hct RDW Plt Count Seg Neuts % (Manual) Lymphocytes % (Manual) Monocytes % (Manual) Seg Neutrophils # Man Lymphocytes # (Manual) Monocytes # (Manual) PT INR APTT Fibrinogen POC ABG pH POC ABG pCO2 POC ABG pO2 VBG pH Sodium 156 H D Potassium Chloride 109.5 H Carbon Dioxide 37 H BUN 70 H Creatinine Glucose 202 H POC Glucose Lactic Acid Calcium Phosphorus Magnesium Iron 42 L Ferritin 532.4 H Total Bilirubin Direct Bilirubin Alkaline Phosphatase Lactate Dehydrogenase Total Creatine Kinase NT-Pro-B Natriuret Pep Total Protein Albumin Triglycerides Vitamin B12 Folate Urine WBC (Auto) Urine Creatinine Urine Total Protein Complement C3 03/14/18 03/14/18 03/14/18 07:00 07:00 07:00 WBC RBC Hgb Hct RDW Plt Count Seg Neuts % (Manual) Lymphocytes % (Manual) Monocytes % (Manual) Seg Neutrophils # Man Lymphocytes # (Manual) Monocytes # (Manual) PT INR APTT Fibrinogen POC ABG pH POC ABG pCO2 POC ABG pO2 VBG pH Sodium Potassium Chloride Carbon Dioxide BUN Creatinine Glucose POC Glucose Lactic Acid Calcium Phosphorus Magnesium Iron Ferritin Total Bilirubin Direct Bilirubin Alkaline Phosphatase Lactate Dehydrogenase Total Creatine Kinase NT-Pro-B Natriuret Pep Total Protein Albumin Triglycerides 532 H Vitamin B12 1825 H Folate 6.29 L Urine WBC (Auto) Urine Creatinine Urine Total Protein Complement C3 Chest x-ray: report reviewed, image reviewed
[2018-03-14] MEDS: D5W 1,000 ML IV SCH (11:55)
--- NOTE | 2018-03-14 11:59 | Progress Note ---
Addendum entered and electronically signed by VDAIM STRICKLAND MD 03/14/18 18:03: Patient is currently on the vent on multiple pressors for septic shock. We will continue medical therapy as tolerated for the dilated cardiomyopathy and systolic left ventricular dysfunction. Original Note: Assessment and Plan Septic shock -on pressors Respiratory failure Acute renal failure Dilated cardiomyopathy, EF 20-25% HIV disease Thrombocytopenia Supportive cardiac management. We will follow intermittently. Subjective Date of service: 03/14/18 Principal diagnosis: acute respiratory failure, sepsis, HIB, ITP Interval history: Remains intubated on the vent. Objective Vital Signs Temp Pulse Pulse Resp BP Pulse Ox 03/14/18 10:50 22 03/14/18 09:45 98 03/14/18 07:55 89 113/66 98 03/14/18 05:16 106 H 21 114/70 99 03/14/18 05:00 87 16 114/70 93 03/14/18 04:46 100 H 33 H 122/78 96 03/14/18 04:30 96 H 17 120/65 91 03/14/18 04:15 86 18 119/67 90 03/14/18 04:00 80 90 20 117/65 91 03/14/18 03:45 97 H 19 114/65 91 03/14/18 03:40 87 108/63 93 03/14/18 03:30 82 17 108/63 88 03/14/18 03:15 100.2 F H 88 18 107/61 90 03/14/18 03:00 107 H 26 H 130/85 95 03/14/18 02:46 98 H 29 H 124/70 96 03/14/18 02:30 89 16 124/70 92 03/14/18 02:15 85 20 121/65 91 03/14/18 02:00 86 21 120/70 93 03/14/18 01:45 88 19 118/62 92 03/14/18 01:30 110 H 31 H 112/58 97 03/14/18 01:15 94 H 20 112/58 94 03/14/18 01:00 68 20 108/62 89 03/14/18 00:45 69 17 102/61 90 03/14/18 00:31 73 108/62 99 03/14/18 00:30 67 19 108/62 94 03/14/18 00:16 82 17 120/66 97 03/14/18 00:00 68 88 20 106/60 95 03/13/18 23:45 86 23 116/66 03/13/18 23:30 66 20 110/64 94 03/13/18 23:15 69 20 108/67 93 03/13/18 23:01 98.9 F 03/13/18 23:00 71 19 116/71 94 03/13/18 22:46 78 20 115/46 100 03/13/18 22:30 91 H 17 115/46 100 03/13/18 22:15 70 20 108/62 94 03/13/18 22:00 67 20 106/61 95 03/13/18 21:45 65 20 109/58 96 03/13/18 21:30 68 20 104/59 94 03/13/18 21:15 73 20 107/58 94 03/13/18 21:00 71 22 112/61 94 03/13/18 20:45 80 22 110/64 94 03/13/18 20:30 79 20 113/65 96 03/13/18 20:15 83 19 111/66 03/13/18 20:04 90 20 110/64 99 03/13/18 20:00 82 83 18 110/64 95 03/13/18 19:57 80 120/67 99 03/13/18 19:45 101 H 20 120/67 97 03/13/18 19:41 98.8 F 03/13/18 19:30 70 20 115/60 99 03/13/18 19:15 72 22 107/56 94 03/13/18 19:00 72 20 110/57 95 03/13/18 18:46 70 20 107/57 94 03/13/18 18:30 70 16 106/61 93 03/13/18 18:15 71 20 101/59 95 03/13/18 18:00 73 20 112/55 93 03/13/18 17:45 75 20 106/56 91 03/13/18 17:30 75 20 109/59 94 03/13/18 17:15 94 H 15 114/69 95 03/13/18 17:00 77 19 114/69 96 03/13/18 16:45 75 20 104/56 92 03/13/18 16:30 76 20 109/57 93 01/06/19 16:15 79 20 112/60 91 03/13/18 16:00 99.7 F H 72 74 20 106/58 91 03/13/18 15:45 88 21 114/64 97 03/13/18 15:30 78 20 107/58 94 03/13/18 15:15 76 20 104/55 96 03/13/18 15:00 74 20 102/51 97 03/13/18 14:45 72 20 102/57 95 03/13/18 14:30 69 20 101/56 94 03/13/18 14:16 76 18 110/53 93 03/13/18 14:00 75 17 106/54 93 03/13/18 13:45 71 19 98/54 91 03/13/18 13:30 79 20 107/58 94 03/13/18 13:15 75 20 102/57 92 03/13/18 13:00 70 20 106/54 96 03/13/18 12:46 92 H 25 H 105/61 91 03/13/18 12:30 77 20 101/55 90 03/13/18 12:15 79 18 103/54 88 03/13/18 12:00 99.5 F 77 77 20 105/56 91 - Physical Examination General: Cachectic, Other (Intubated and sedated) Cardiac: Positive: Tachycardia - Labs and Meds Lipids 03/14/18 Range/Units 07:00 Triglycerides 532 H (2-149) mg/dL CBC 03/14/18 Range/Units 06:00 WBC 27.3 H (4.5-11.0) K/mm3 RBC 3.52 L (3.65-5.03) M/mm3 Hgb 10.0 L (11.8-15.2) gm/dl Hct 30.8 L (35.5-45.6) % Plt Count 50 L (140-440) K/mm3 Comprehensive Metabolic Panel 03/14/18 Range/Units 06:00 Sodium 156 H D (137-145) mmol/L Potassium 4.1 (3.6-5.0) mmol/L Chloride 109.5 H (98-107) mmol/L Carbon Dioxide 37 H (22-30) mmol/L BUN 70 H (9-20) mg/dL Creatinine 1.3 (0.8-1.5) mg/dL Glucose 202 H (75-100) mg/dL Calcium 8.7 (8.4-10.2) mg/dL
[2018-03-14] MEDS: HumaLOG SUB-Q SCH ×2 (13:04→17:58)
[2018-03-14] MEDS ORDERED: SIMPLE SYRUP FEEDTUBE PRN ×2 (16:04)
[2018-03-14] MEDS ORDERED: SODIUM BICARBONATE FEEDTUBE PRN (16:04)
[2018-03-14] MEDS ORDERED: PANCREAZE DR 10,500 UNIT FEEDTUBE PRN (16:04)
[2018-03-14 21:30] LABS: BUN/Creatinine Ratio 45; Blood Urea Nitrogen 58 mg/dL (9-20); Calcium 8.7 mg/dL (8.4-10.2); Hemolysis Index 4
[2018-03-14 22:12] LABS: ANA Screen, IFA Negative (Negative)
[2018-03-15] MEDS: DIPRIVAN 10 MG/ML 1,000 MG/100 ML BOTTLE IV SCH ×3 (00:50→21:00)
[2018-03-15] MEDS: fentaNYL DRIP Premix 2,000 MCG/100 ML BAG IV SCH ×4 (02:45→19:03)
--- NOTE | 2018-03-15 02:45 | XRay Report ---
FINAL REPORT PROCEDURE: XR CHEST 1V AP TECHNIQUE: Chest radiograph anteroposterior view. CPT 94730 HISTORY: Hypoxemia COMPARISON: 03/13/2018 FINDINGS: Heart: Normal. Mediastinum/Vessels: Normal. Lungs/Pleural space: There is a small left pleural effusion. There is no pneumothorax.. Bony thorax: No acute osseous abnormality. Life support devices: Endotracheal tube is the mid trachea. NG tube is in the stomach.. IMPRESSION: The heart size is normal.. There is a small left pleural effusion. There is no pneumothorax.. Endotracheal tube is the mid trachea. NG tube is in the stomach..
[2018-03-15] MEDS: HumaLOG SUB-Q SCH ×4 (02:54→19:06)
[2018-03-15 05:05] LABS: Hemoglobin 10.5 gm/dl (11.8-15.2); Mean Corpuscular HGB Conc 32 % (32-34); Mean Corpuscular Volume 89 fl (84-94); Red Blood Count 3.73 M/mm3 (3.65-5.03)
[2018-03-15 05:11] LABS: Platelet Count 70 K/mm3 (140-440)
[2018-03-15 05:26] LABS: BUN/Creatinine Ratio 51; Blood Urea Nitrogen 51 mg/dL (9-20); Calcium 8.9 mg/dL (8.4-10.2); Hemolysis Index 3
[2018-03-15] MEDS: ATIVAN IV PRN ×4 (06:00→23:10)
[2018-03-15] MEDS: HALDOL IV PRN ×2 (07:18→14:10)
--- NOTE | 2018-03-15 07:25 | Hem/Onc Progress Note ---
Assessment and Plan 1. Thrombocytopenia. I reviewed the peripheral smear. I spoke to the chemical laboratory tester. The laboratory report mentioned no schistocytes. When I reviewed the smear it did not have any schistocytes. Creatinine is elevated. The patient is short of breath. 2. At this time, differential includes some idiopathic thrombocytopenic purpura. Other differentials include immunosuppression related or medication or infection related. The patient's PT, PTT is elevated, but fibrinogen is not low. At admission, chest x-ray was clear and now it has worsened. There is a clinical suspicion of this being infection or disseminated intravascular coagulation or acute respiratory distress syndrome. 3. Renal impairment. 4. Decreased urine output. 5. h/o Shortness of breath. 6. Human immunodeficiency virus, pt was on treatment. 7. discussed with IDT. 8. steroid trial. 9. BNP was elevated. 10. I ordered [id number]. 11. Abnormal liver function tests. 12. Being treated for Haemophilus influenzae. 13. CD4 count 400. I will follow the patient during inpatient stay. 03/11/2018 - d/w dr garrison - low EF pt is on dexa 40 daily s/p plt transfusion no active bleeding 03/12/2018 s/p plt transfusion on dexa intubated d/w lab reg [id number] HIV d/w dr ojeda 03/15 - low folate plt better once plt >100 - will look into altering steroids as per nurse - good urine OP - Patient Problems (1) Thrombocytopenia Current Visit: Yes Status: Acute Subjective Date of service: 03/15/18 Principal diagnosis: low plt Interval history: pt agitated Objective - Exam Narrative Exam: intubated agitated - Constitutional Vitals: Last Vital Signs Temp 98.4 F 03/15/18 04:00 Pulse 71 03/15/18 06:30 Resp 19 03/15/18 06:30 BP 117/59 03/15/18 06:30 Pulse Ox 89 03/15/18 06:30 General appearance: other (agitated) Performance status: 4-completely disabled - EENT ENT: other (vent) Lymph node exam: negative cervical, negative supraclavicular - Respiratory Respiratory: bilateral: diminished - Cardiovascular Heart Sounds: Present: S1 & S2 Extremities: No edema - Gastrointestinal General gastrointestinal: Present: soft, non-tender Rectal Exam: deferred - Genitourinary Male genitourinary: Present: deferred - Integumentary Integumentary: warm - Neurologic Neurologic: moves all extremities - Labs Lab Results: Laboratory Results - last 24 hr 03/09/18 03/14/18 03/14/18 20:39 06:00 06:00 WBC RBC Hgb Hct MCV MCH MCHC RDW Plt Count Add Manual Diff Complete Total Counted 100 Seg Neutrophils % Seg Neuts % (Manual) 87.0 H Band Neutrophils % 1.0 Lymphocytes % (Manual) 3.0 L Reactive Lymphs % (Man) 1.0 Monocytes % (Manual) 6.0 Eosinophils % (Manual) 0 Basophils % (Manual) 0 Metamyelocytes % 1.0 Myelocytes % 1.0 Promyelocytes % 0 Blast Cells % 0 Nucleated RBC % Not Reportable Seg Neutrophils # Man 23.8 H Band Neutrophils # 0.3 Lymphocytes # (Manual) 0.8 L Abs React Lymphs (Man) 0.3 Monocytes # (Manual) 1.6 H Eosinophils # (Manual) 0.0 Basophils # (Manual) 0.0 Metamyelocytes # 0.3 Myelocytes # 0.3 Promyelocytes # 0.0 Blast Cells # 0.0 WBC Morphology Not Reportable Hypersegmented Neuts Not Reportable Hyposegmented Neuts Not Reportable Hypogranular Neuts Not Reportable Smudge Cells Not Reportable Toxic Granulation Not Reportable Toxic Vacuolation Not Reportable Dohle Bodies Not Reportable Pelger-Huet Anomaly Not Reportable Kamar Rods Not Reportable Platelet Estimate Consistent w auto Clumped Platelets Not Reportable Plt Clumps, EDTA Not Reportable Large Platelets Not Reportable Giant Platelets Not Reportable Platelet Satelliting Not Reportable Plt Morphology Comment Not Reportable RBC Morphology Not Reportable Dimorphic RBCs Not Reportable Polychromasia Not Reportable Hypochromasia 1+ Poikilocytosis Not Reportable Anisocytosis Not Reportable Microcytosis Not Reportable Macrocytosis Not Reportable Spherocytes Not Reportable Pappenheimer Bodies Not Reportable Sickle Cells Not Reportable Target Cells Not Reportable Tear Drop Cells Not Reportable Ovalocytes Not Reportable Stomatocytes Rare Helmet Cells Not Reportable [place] Bodies Not Reportable [place] Rings Not Reportable Leon Cells Not Reportable Bite Cells Not Reportable Crenated Cell Not Reportable Elliptocytes Not Reportable Acanthocytes (Spur) Not Reportable Rouleaux Not Reportable Hemoglobin C Crystals Not Reportable Schistocytes Not Reportable Malaria parasites Not Reportable Jose Bodies Not Reportable Hem Pathologist Commnt No POC ABG pH POC ABG pCO2 POC ABG pO2 POC ABG HCO3 POC ABG Total CO2 POC ABG O2 Sat POC ABG Base Excess FiO2 Sodium Potassium Chloride Carbon Dioxide Anion Gap BUN Creatinine Estimated GFR BUN/Creatinine Ratio Glucose POC Glucose Osmolality Calcium Phosphorus Iron TIBC Ferritin Total Creatine Kinase 17 L Triglycerides Vitamin B12 Folate Urine Sodium FELICIA Screen Negative 03/14/18 03/14/18 03/14/18 06:00 07:00 07:00 WBC RBC Hgb Hct MCV MCH MCHC RDW Plt Count Add Manual Diff Total Counted Seg Neutrophils % Seg Neuts % (Manual) Band Neutrophils % Lymphocytes % (Manual) Reactive Lymphs % (Man) Monocytes % (Manual) Eosinophils % (Manual) Basophils % (Manual) Metamyelocytes % Myelocytes % Promyelocytes % Blast Cells % Nucleated RBC % Seg Neutrophils # Man Band Neutrophils # Lymphocytes # (Manual) Abs React Lymphs (Man) Monocytes # (Manual) Eosinophils # (Manual) Basophils # (Manual) Metamyelocytes # Myelocytes # Promyelocytes # Blast Cells # WBC Morphology Hypersegmented Neuts Hyposegmented Neuts Hypogranular Neuts Smudge Cells Toxic Granulation Toxic Vacuolation Dohle Bodies Pelger-Huet Anomaly Kamar Rods Platelet Estimate Clumped Platelets Plt Clumps, EDTA Large Platelets Giant Platelets Platelet Satelliting Plt Morphology Comment RBC Morphology Dimorphic RBCs Polychromasia Hypochromasia Poikilocytosis Anisocytosis Microcytosis Macrocytosis Spherocytes Pappenheimer Bodies Sickle Cells Target Cells Tear Drop Cells Ovalocytes Stomatocytes Helmet Cells Barnes-[place] Bodies [place] Rings Lyssa Cells Bite Cells Crenated Cell Elliptocytes Acanthocytes (Spur) Rouleaux Hemoglobin C Crystals Schistocytes Malaria parasites Jose Bodies Hem Pathologist Commnt POC ABG pH POC ABG pCO2 POC ABG pO2 POC ABG HCO3 POC ABG Total CO2 POC ABG O2 Sat POC ABG Base Excess FiO2 Sodium 156 H D Potassium Chloride Carbon Dioxide Anion Gap BUN Creatinine Estimated GFR BUN/Creatinine Ratio Glucose POC Glucose Osmolality Calcium Phosphorus 2.70 D Iron 42 L TIBC 262 Ferritin 532.4 H Total Creatine Kinase Triglycerides Vitamin B12 Folate Urine Sodium FELICIA Screen 03/14/18 03/14/18 03/14/18 07:00 07:00 07:00 WBC RBC Hgb Hct MCV MCH MCHC RDW Plt Count Add Manual Diff Total Counted Seg Neutrophils % Seg Neuts % (Manual) Band Neutrophils % Lymphocytes % (Manual) Reactive Lymphs % (Man) Monocytes % (Manual) Eosinophils % (Manual) Basophils % (Manual) Metamyelocytes % Myelocytes % Promyelocytes % Blast Cells % Nucleated RBC % Seg Neutrophils # Man Band Neutrophils # Lymphocytes # (Manual) Abs React Lymphs (Man) Monocytes # (Manual) Eosinophils # (Manual) Basophils # (Manual) Metamyelocytes # Myelocytes # Promyelocytes # Blast Cells # WBC Morphology Hypersegmented Neuts Hyposegmented Neuts Hypogranular Neuts Smudge Cells Toxic Granulation Toxic Vacuolation Dohle Bodies Pelger-Huet Anomaly Kamar Rods Platelet Estimate Clumped Platelets Plt Clumps, EDTA Large Platelets Giant Platelets Platelet Satelliting Plt Morphology Comment RBC Morphology Dimorphic RBCs Polychromasia Hypochromasia Poikilocytosis Anisocytosis Microcytosis Macrocytosis Spherocytes Pappenheimer Bodies Sickle Cells Target Cells Tear Drop Cells Ovalocytes Stomatocytes Helmet Cells Barnes-[place] Bodies [place] Rings Leon Cells Bite Cells Crenated Cell Elliptocytes Acanthocytes (Spur) Rouleaux Hemoglobin C Crystals Schistocytes Malaria parasites Jose Bodies Hem Pathologist Commnt POC ABG pH POC ABG pCO2 POC ABG pO2 POC ABG HCO3 POC ABG Total CO2 POC ABG O2 Sat POC ABG Base Excess FiO2 Sodium Potassium Chloride Carbon Dioxide Anion Gap BUN Creatinine Estimated GFR BUN/Creatinine Ratio Glucose POC Glucose Osmolality Calcium Phosphorus Iron TIBC Ferritin Total Creatine Kinase Triglycerides 532 H Vitamin B12 1825 H Folate 6.29 L Urine Sodium FELICIA Screen 03/14/18 03/14/18 03/14/18 07:00 13:01 17:37 WBC RBC Hgb Hct MCV MCH MCHC RDW Plt Count Add Manual Diff Total Counted Seg Neutrophils % Seg Neuts % (Manual) Band Neutrophils % Lymphocytes % (Manual) Reactive Lymphs % (Man) Monocytes % (Manual) Eosinophils % (Manual) Basophils % (Manual) Metamyelocytes % Myelocytes % Promyelocytes % Blast Cells % Nucleated RBC % Seg Neutrophils # Man Band Neutrophils # Lymphocytes # (Manual) Abs React Lymphs (Man) Monocytes # (Manual) Eosinophils # (Manual) Basophils # (Manual) Metamyelocytes # Myelocytes # Promyelocytes # Blast Cells # WBC Morphology Hypersegmented Neuts Hyposegmented Neuts Hypogranular Neuts Smudge Cells Toxic Granulation Toxic Vacuolation Dohle Bodies Pelger-Huet Anomaly Kamar Rods Platelet Estimate Clumped Platelets Plt Clumps, EDTA Large Platelets Giant Platelets Platelet Satelliting Plt Morphology Comment RBC Morphology Dimorphic RBCs Polychromasia Hypochromasia Poikilocytosis Anisocytosis Microcytosis Macrocytosis Spherocytes Pappenheimer Bodies Sickle Cells Target Cells Tear Drop Cells Ovalocytes Stomatocytes Helmet Cells Barnes-[place] Bodies [place] Rings Leon Cells Bite Cells Crenated Cell Elliptocytes Acanthocytes (Spur) Rouleaux Hemoglobin C Crystals Schistocytes Malaria parasites Jose Bodies Hem Pathologist Commnt POC ABG pH POC ABG pCO2 POC ABG pO2 POC ABG HCO3 POC ABG Total CO2 POC ABG O2 Sat POC ABG Base Excess FiO2 Sodium Potassium Chloride Carbon Dioxide Anion Gap BUN Creatinine Estimated GFR BUN/Creatinine Ratio Glucose POC Glucose 201 H 179 H Osmolality 256 Calcium Phosphorus Iron TIBC Ferritin Total Creatine Kinase Triglycerides Vitamin B12 Folate Urine Sodium FELICIA Screen 03/14/18 03/14/18 03/14/18 18:50 21:04 23:30 WBC RBC Hgb Hct MCV MCH MCHC RDW Plt Count Add Manual Diff Total Counted Seg Neutrophils % Seg Neuts % (Manual) Band Neutrophils % Lymphocytes % (Manual) Reactive Lymphs % (Man) Monocytes % (Manual) Eosinophils % (Manual) Basophils % (Manual) Metamyelocytes % Myelocytes % Promyelocytes % Blast Cells % Nucleated RBC % Seg Neutrophils # Man Band Neutrophils # Lymphocytes # (Manual) Abs React Lymphs (Man) Monocytes # (Manual) Eosinophils # (Manual) Basophils # (Manual) Metamyelocytes # Myelocytes # Promyelocytes # Blast Cells # WBC Morphology Hypersegmented Neuts Hyposegmented Neuts Hypogranular Neuts Smudge Cells Toxic Granulation Toxic Vacuolation Dohle Bodies Pelger-Huet Anomaly Kamar Rods Platelet Estimate Clumped Platelets Plt Clumps, EDTA Large Platelets Giant Platelets Platelet Satelliting Plt Morphology Comment RBC Morphology Dimorphic RBCs Polychromasia Hypochromasia Poikilocytosis Anisocytosis Microcytosis Macrocytosis Spherocytes Pappenheimer Bodies Sickle Cells Target Cells Tear Drop Cells Ovalocytes Stomatocytes Helmet Cells Barnes-[place] Bodies [place] Rings Lyssa Cells Bite Cells Crenated Cell Elliptocytes Acanthocytes (Spur) Rouleaux Hemoglobin C Crystals Schistocytes Malaria parasites Jose Bodies Hem Pathologist Commnt POC ABG pH POC ABG pCO2 POC ABG pO2 POC ABG HCO3 POC ABG Total CO2 POC ABG O2 Sat POC ABG Base Excess FiO2 Sodium 155 H Potassium 4.8 Chloride 114.1 H Carbon Dioxide 33 H Anion Gap 13 BUN 58 H Creatinine 1.3 Estimated GFR > 60 BUN/Creatinine Ratio 45 Glucose 166 H POC Glucose 167 H Osmolality Calcium 8.7 Phosphorus Iron TIBC Ferritin Total Creatine Kinase Triglycerides Vitamin B12 Folate Urine Sodium 81 FELICIA Screen 03/15/18 03/15/18 03/15/18 04:44 04:44 04:53 WBC 26.0 H RBC 3.73 Hgb 10.5 L Hct 33.0 L MCV 89 MCH 28 MCHC 32 RDW 15.0 Plt Count 70 L Add Manual Diff Total Counted Seg Neutrophils % Automatic Lump Making Machine Tender Seg Neuts % (Manual) Band Neutrophils % Lymphocytes % (Manual) Reactive Lymphs % (Man) Monocytes % (Manual) Eosinophils % (Manual) Basophils % (Manual) Metamyelocytes % Myelocytes % Promyelocytes % Blast Cells % Nucleated RBC % Seg Neutrophils # Man Band Neutrophils # Lymphocytes # (Manual) Abs React Lymphs (Man) Monocytes # (Manual) Eosinophils # (Manual) Basophils # (Manual) Metamyelocytes # Myelocytes # Promyelocytes # Blast Cells # WBC Morphology Hypersegmented Neuts Hyposegmented Neuts Hypogranular Neuts Smudge Cells Toxic Granulation Toxic Vacuolation Dohle Bodies Pelger-Huet Anomaly Kamar Rods Platelet Estimate Clumped Platelets Plt Clumps, EDTA Large Platelets Giant Platelets Platelet Satelliting Plt Morphology Comment RBC Morphology Dimorphic RBCs Polychromasia Hypochromasia Poikilocytosis Anisocytosis Microcytosis Macrocytosis Spherocytes Pappenheimer Bodies Sickle Cells Target Cells Tear Drop Cells Ovalocytes Stomatocytes Helmet Cells Barnes-[place] Bodies [place] Rings Leon Cells Bite Cells Crenated Cell Elliptocytes Acanthocytes (Spur) Rouleaux Hemoglobin C Crystals Schistocytes Malaria parasites Jose Bodies Hem Pathologist Commnt POC ABG pH 7.355 POC ABG pCO2 59.0 H POC ABG pO2 112 H POC ABG HCO3 32.9 POC ABG Total CO2 35 POC ABG O2 Sat 98 POC ABG Base Excess 7 FiO2 50 Sodium 155 H Potassium 4.9 Chloride 114.3 H Carbon Dioxide 31 H Anion Gap 15 BUN 51 H Creatinine 1.0 Estimated GFR > 60 BUN/Creatinine Ratio 51 Glucose 173 H POC Glucose Osmolality Calcium 8.9 Phosphorus 2.80 Iron TIBC Ferritin Total Creatine Kinase Triglycerides Vitamin B12 Folate Urine Sodium FELICIA Screen 03/15/18 06:36 WBC RBC Hgb Hct MCV MCH MCHC RDW Plt Count Add Manual Diff Total Counted Seg Neutrophils % Seg Neuts % (Manual) Band Neutrophils % Lymphocytes % (Manual) Reactive Lymphs % (Man) Monocytes % (Manual) Eosinophils % (Manual) Basophils % (Manual) Metamyelocytes % Myelocytes % Promyelocytes % Blast Cells % Nucleated RBC % Seg Neutrophils # Man Band Neutrophils # Lymphocytes # (Manual) Abs React Lymphs (Man) Monocytes # (Manual) Eosinophils # (Manual) Basophils # (Manual) Metamyelocytes # Myelocytes # Promyelocytes # Blast Cells # WBC Morphology Hypersegmented Neuts Hyposegmented Neuts Hypogranular Neuts Smudge Cells Toxic Granulation Toxic Vacuolation Dohle Bodies Pelger-Huet Anomaly Kamar Rods Platelet Estimate Clumped Platelets Plt Clumps, EDTA Large Platelets Giant Platelets Platelet Satelliting Plt Morphology Comment RBC Morphology Dimorphic RBCs Polychromasia Hypochromasia Poikilocytosis Anisocytosis Microcytosis Macrocytosis Spherocytes Pappenheimer Bodies Sickle Cells Target Cells Tear Drop Cells Ovalocytes Stomatocytes Helmet Cells Barnes-[place] Bodies [place] Rings Lyssa Cells Bite Cells Crenated Cell Elliptocytes Acanthocytes (Spur) Rouleaux Hemoglobin C Crystals Schistocytes Malaria parasites Jose Bodies Hem Pathologist Commnt POC ABG pH POC ABG pCO2 POC ABG pO2 POC ABG HCO3 POC ABG Total CO2 POC ABG O2 Sat POC ABG Base Excess FiO2 Sodium Potassium Chloride Carbon Dioxide Anion Gap BUN Creatinine Estimated GFR BUN/Creatinine Ratio Glucose POC Glucose 199 H Osmolality Calcium Phosphorus Iron TIBC Ferritin Total Creatine Kinase Triglycerides Vitamin B12 Folate Urine Sodium FELICIA Screen Medications & Allergies - Medications Allergies/Adverse Reactions: Allergies clindamycin Allergy (Verified 03/09/18 06:43) Swelling Home Medications: Home Medications Medication Instructions Recorded Confirmed Last Taken Type No Known Home Medications [No 03/09/18 03/09/18 Unknown History Reported Home Medications] Active Medications: Generic Name Dose Route Start Last Admin Trade Name Freq PRN Reason Stop Dose Admin Lipase/Protease/Amylase 1 each 03/14/18 16:[address] 10,500 Unit FEEDTUBE PRN PRN For Clogged Feeding Tube Atovaquone 1,500 mg 03/11/18 20:00 03/14/18 10:21 Mepron PO 1,500 mg QDAY LIU Administration Dextrose 50 ml 03/09/18 16:15 D50w (25gm) Syringe IV PRN PRN HYPOGLYCEMIA Fentanyl 50 mcg 03/14/18 09:44 03/14/18 10:50 Sublimaze IV 50 mcg Q2H PRN Administration Pain , Severe (7-10) Haloperidol Lactate 5 mg 03/12/18 02:15 03/15/18 07:18 Haldol IV 5 mg Q6H PRN Administration Agitation Hydrophilic Ointment 1 applic 03/12/18 07:47 03/13/18 11:34 Vaseline Lip Therapy TP 1 applic Q2HR PRN Administration Dry Lips Norepinephrine 4 mg in 250 mls @ 7.5 mls/hr 03/09/18 23:45 03/12/18 13:57 Levophed Drip 4 Mg/Ns 250 Ml IV 0 mcg/min TITR LIU 0 mls/hr Titration Protocol 2 MCG/MIN Vasopressin 20 unit/ Sodium 101 mls @ 9.09 mls/hr 03/10/18 11:00 03/14/18 10:30 Chloride IV 0 units/min TITR LIU 0 mls/hr Titration Protocol 0.03 UNITS/MIN Dexamethasone 20 mg/ Sodium 55 mls @ 100 mls/hr 03/11/18 11:30 03/14/18 22:47 Chloride IV 100 mls/hr Q12HR LIU Administration Propofol 1,000 mg in 100 mls @ 2.721 mls/hr 03/12/18 08:00 03/15/18 07:01 Diprivan 10 Mg/Ml IV 5 mcg/kg/min TITR LIU 2.721 mls/hr Titration Protocol 5 MCG/KG/MIN Cefepime HCl 2 gm in 100 mls @ 200 mls/hr 03/13/18 10:00 03/14/18 22:47 Maxipime/Ns 2 Gm/100 Ml IV 200 mls/hr Q12HR LIU Administration Fentanyl Citrate 2,000 mcg in 100 mls @ 4.535 mls/hr 03/14/18 10:00 03/15/18 02:45 Fentanyl Drip Premix IV 4 mcg/kg/hr TITR LIU 18.14 mls/hr Administration Protocol 1 MCG/KG/HR Dextrose 1,000 mls @ 50 mls/hr 03/14/18 11:00 03/14/18 11:55 D5w IV 50 mls/hr DIRECT LIU Administration Insulin Human Lispro 0 unit 03/14/18 12:00 03/15/18 06:44 Humalog SUB-Q 3 unit Q6HR LIU Administration Protocol Lansoprazole 30 mg 03/14/18 10:00 03/14/18 10:23 Prevacid Solutab FEEDTUBE 30 mg QDAY LIU Administration Lorazepam 1 mg 03/11/18 16:56 03/15/18 06:00 Ativan IV 1 mg Q4H PRN Administration Anxiety Morphine Sulfate 2 mg 03/14/18 05:25 03/14/18 07:49 Morphine IV 2 mg Q4H PRN Administration Pain, Moderate (4-6) Multi-Ingred Cream/Lotion/Oil/Oint 1 applic 03/12/18 07:47 Artificial Tears Ophth Oint OU Q4HR PRN Dry Eye(s) Ondansetron HCl 4 mg 03/14/18 08:00 Zofran IV Q8H PRN Nausea And Vomiting Simple Syrup 15 ml 03/14/18 16:04 Simple Syrup FEEDTUBE PRN PRN Hypoglycemia Simple Syrup 30 ml 03/14/18 16:04 Simple Syrup FEEDTUBE PRN PRN Hypoglycemia Sodium Bicarbonate 325 mg 03/14/18 16:04 Sodium Bicarbonate FEEDTUBE PRN PRN For Clogged Feeding Tube Sodium Chloride 10 ml 03/09/18 22:00 03/14/18 22:50 Sodium Chloride Flush Syringe 10 Ml IV 10 ml BID LIU Administration Sodium Chloride 10 ml 03/09/18 10:41 Sodium Chloride Flush Syringe 10 Ml IV PRN PRN LINE FLUSH
[2018-03-15] MEDS: SUBLIMAZE IV PRN ×2 (07:35→14:19)
[2018-03-15] MEDS: D5W 1,000 ML IV SCH (08:09)
--- NOTE | 2018-03-15 08:53 | Progress Note ---
Assessment and Plan Acute respiratory failure. Adequate gas exchange and oximetry. Shock. Being wean off vasopressin KLAUDIA/sepsis. Fever still noted. 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 No gross bleeding Cardiomyopathy with ejection fraction of 25% Recommendations f/u hospital ventilator bundle, Mechanical ventilation support, adjust FiO2 with goal of maintaining oximetry at or above 92% Titrate PEEP as tolerated Set tidal Volume set initially at 6-8 cm PBW for AVERY protection Keep PIP < 30 Sedation as needed for patient comfort, adjust to RASS -1 to - 3 Maintain extubation precautions 1 scans completed, initiate SBT if deemed appropriate DVT prophylaxis PPI prophylaxis Adjust down fentanyl drip as tolerated, monitor trigl Critical care time was 31 minutes of [id number] evaluation and coordination of care Subjective Date of service: 03/15/18 Principal diagnosis: respiratory failure, shock, HIV, sepsis, low plt Interval history: Sedated and intubated Objective Vital Signs - 12hr 03/14/18 03/14/18 03/14/18 21:00 21:15 21:30 Temperature Pulse Rate 86 89 83 Pulse Rate [ From Monitor] Respiratory 20 20 20 Rate Blood Pressure 105/60 107/58 109/57 O2 Sat by Pulse 93 93 94 Oximetry 03/14/18 03/14/18 03/14/18 21:45 22:00 22:15 Temperature Pulse Rate 84 74 76 Pulse Rate [ From Monitor] Respiratory 20 20 20 Rate Blood Pressure 116/59 108/57 113/55 O2 Sat by Pulse 94 94 94 Oximetry 03/14/18 03/14/18 03/14/18 22:30 22:45 23:00 Temperature Pulse Rate 74 74 82 Pulse Rate [ From Monitor] Respiratory 20 20 20 Rate Blood Pressure 104/57 110/56 109/59 O2 Sat by Pulse 94 94 95 Oximetry 03/14/18 03/14/18 03/14/18 23:15 23:19 23:24 Temperature Pulse Rate 82 84 84 Pulse Rate [ From Monitor] Respiratory 20 20 Rate Blood Pressure 112/58 112/58 112/58 O2 Sat by Pulse 95 98 99 Oximetry 03/14/18 03/14/18 03/15/18 23:30 23:45 00:00 Temperature 97.6 F Pulse Rate 84 118 H 102 H Pulse Rate [ 81 From Monitor] Respiratory 20 25 H 20 Rate Blood Pressure 105/49 105/49 102/62 O2 Sat by Pulse 92 99 95 Oximetry 03/15/18 03/15/18 03/15/18 00:15 00:30 00:45 Temperature Pulse Rate 89 85 80 Pulse Rate [ From Monitor] Respiratory 20 20 20 Rate Blood Pressure 105/58 106/54 113/56 O2 Sat by Pulse 94 93 89 Oximetry 03/15/18 03/15/18 03/15/18 01:00 01:15 01:30 Temperature Pulse Rate 78 105 H 79 Pulse Rate [ From Monitor] Respiratory 19 20 19 Rate Blood Pressure 110/56 100/63 102/57 O2 Sat by Pulse 85 93 91 Oximetry 03/15/18 03/15/18 03/15/18 01:45 02:00 02:15 Temperature Pulse Rate 70 75 69 Pulse Rate [ From Monitor] Respiratory 19 18 20 Rate Blood Pressure 111/58 120/76 115/62 O2 Sat by Pulse 90 92 91 Oximetry 03/15/18 03/15/18 03/15/18 02:30 02:45 03:00 Temperature Pulse Rate 69 75 70 Pulse Rate [ From Monitor] Respiratory 20 20 20 Rate Blood Pressure 113/63 113/62 117/62 O2 Sat by Pulse 89 94 95 Oximetry 03/15/18 03/15/18 03/15/18 03:15 03:30 03:45 Temperature Pulse Rate 70 68 80 Pulse Rate [ From Monitor] Respiratory 20 20 20 Rate Blood Pressure 116/60 118/58 117/61 O2 Sat by Pulse 95 90 90 Oximetry 03/15/18 03/15/18 03/15/18 04:00 04:15 04:30 Temperature 98.4 F Pulse Rate 75 70 78 Pulse Rate [ 80 From Monitor] Respiratory 19 20 20 Rate Blood Pressure 110/64 129/56 116/66 O2 Sat by Pulse 97 94 92 Oximetry 03/15/18 03/15/18 03/15/18 04:38 04:45 05:00 Temperature Pulse Rate 72 82 70 Pulse Rate [ From Monitor] Respiratory 12 20 Rate Blood Pressure 116/66 126/74 121/63 O2 Sat by Pulse 98 97 92 Oximetry 03/15/18 03/15/18 03/15/18 05:15 05:30 05:45 Temperature Pulse Rate 78 73 83 Pulse Rate [ From Monitor] Respiratory 20 20 20 Rate Blood Pressure 115/57 118/58 114/64 O2 Sat by Pulse 93 93 94 Oximetry 03/15/18 03/15/18 03/15/18 06:00 06:15 06:30 Temperature Pulse Rate 80 71 71 Pulse Rate [ From Monitor] Respiratory 17 15 19 Rate Blood Pressure 121/56 122/57 117/59 O2 Sat by Pulse 92 89 89 Oximetry 03/15/18 03/15/18 03/15/18 06:45 07:00 07:15 Temperature Pulse Rate 68 77 101 H Pulse Rate [ From Monitor] Respiratory 21 11 L 23 Rate Blood Pressure 113/58 113/62 113/58 O2 Sat by Pulse 91 90 96 Oximetry 03/15/18 03/15/18 03/15/18 07:31 07:35 07:45 Temperature Pulse Rate 106 H 95 H Pulse Rate [ From Monitor] Respiratory 21 20 13 Rate Blood Pressure 136/73 137/65 O2 Sat by Pulse 93 92 Oximetry 03/15/18 03/15/18 03/15/18 08:00 08:01 08:15 Temperature 99.0 F Pulse Rate 89 82 Pulse Rate [ 92 H From Monitor] Respiratory 23 11 L 11 L Rate Blood Pressure 124/67 126/64 O2 Sat by Pulse 97 84 84 Oximetry 03/15/18 03/15/18 08:24 08:30 Temperature Pulse Rate 93 H Pulse Rate [ From Monitor] Respiratory 12 Rate Blood Pressure 126/64 121/67 O2 Sat by Pulse 88 81 L Oximetry Constitutional: appears uncomfortable Eyes: non-icteric ENT: oropharynx dry, other (orally intubated and sedated) Neck: supple Effort: mildly labored Ascultation: Bilateral: clear, diminished breath sounds, rales (OCCASIONAL) Percussion: Bilateral: not dull Cardiovascular: regular rate and rhythm, other (sinus tach) Gastrointestinal: normoactive bowel sounds, non-tender Integumentary: normal Extremities: no cyanosis, no edema, pink and warm Neurologic: unable to assess, other (RA SS -1) CBC and BMP: 03/18/18 04:16 03/18/18 04:16 ABG, PT/INR, D-dimer: ABG POC ABG pH 7.355 (7.35-7.45) 03/15/18 04:53 POC ABG pCO2 59.0 (35-45) H 03/15/18 04:53 POC ABG pO2 112 (80-105) H 03/15/18 04:53 POC ABG HCO3 32.9 03/15/18 04:53 POC ABG Total CO2 35 03/15/18 04:53 POC ABG O2 Sat 98 03/15/18 04:53 PT/INR, D-dimer PT 17.2 Sec. (12.2-14.9) H 03/10/18 18:15 INR 1.36 (0.87-1.13) H 03/10/18 18:15 Abnormal lab findings: Abnormal Labs 03/09/18 03/09/18 03/09/18 07:00 07:00 07:00 WBC RBC Hgb Hct RDW 15.5 H Plt Count 25 L Seg Neuts % (Manual) 90.0 H Lymphocytes % (Manual) 5.0 L Monocytes % (Manual) Seg Neutrophils # Man Lymphocytes # (Manual) 0.4 L Monocytes # (Manual) PT 22.9 H INR 1.98 H APTT Fibrinogen POC ABG pH POC ABG pCO2 POC ABG pO2 VBG pH Sodium 135 L Potassium Chloride 90.8 L Carbon Dioxide 17 L BUN 45 H Creatinine 5.8 H Glucose 72 L POC Glucose Lactic Acid Calcium 7.6 L Phosphorus Magnesium Iron Ferritin Total Bilirubin Direct Bilirubin Alkaline Phosphatase 154 H Lactate Dehydrogenase Total Creatine Kinase NT-Pro-B Natriuret Pep Total Protein Albumin 3.6 L Triglycerides Vitamin B12 Folate Urine WBC (Auto) Urine Creatinine Urine Total Protein Complement C3 03/09/18 03/09/18 03/09/18 07:00 07:00 07:00 WBC RBC Hgb Hct RDW Plt Count Seg Neuts % (Manual) Lymphocytes % (Manual) Monocytes % (Manual) Seg Neutrophils # Man Lymphocytes # (Manual) Monocytes # (Manual) PT INR APTT Fibrinogen POC ABG pH POC ABG pCO2 POC ABG pO2 VBG pH 7.297 L Sodium Potassium Chloride Carbon Dioxide BUN Creatinine Glucose POC Glucose Lactic Acid 6.80 H* Calcium Phosphorus 5.40 H Magnesium 1.20 L Iron Ferritin Total Bilirubin Direct Bilirubin Alkaline Phosphatase Lactate Dehydrogenase Total Creatine Kinase 228 H NT-Pro-B Natriuret Pep Total Protein Albumin Triglycerides Vitamin B12 Folate Urine WBC (Auto) Urine Creatinine Urine Total Protein Complement C3 03/09/18 03/09/18 03/09/18 09:22 12:36 14:39 WBC RBC Hgb Hct RDW Plt Count Seg Neuts % (Manual) Lymphocytes % (Manual) Monocytes % (Manual) Seg Neutrophils # Man Lymphocytes # (Manual) Monocytes # (Manual) PT INR APTT Fibrinogen POC ABG pH POC ABG pCO2 POC ABG pO2 VBG pH Sodium Potassium Chloride Carbon Dioxide BUN Creatinine Glucose POC Glucose Lactic Acid 5.90 H* 8.30 H* Calcium Phosphorus Magnesium Iron Ferritin Total Bilirubin Direct Bilirubin Alkaline Phosphatase Lactate Dehydrogenase Total Creatine Kinase NT-Pro-B Natriuret Pep Total Protein Albumin Triglycerides Vitamin B12 Folate Urine WBC (Auto) 86.0 H Urine Creatinine Urine Total Protein Complement C3 03/09/18 03/09/18 03/09/18 14:39 14:39 15:12 WBC RBC Hgb Hct RDW Plt Count Seg Neuts % (Manual) Lymphocytes % (Manual) Monocytes % (Manual) Seg Neutrophils # Man Lymphocytes # (Manual) Monocytes # (Manual) PT INR APTT Fibrinogen POC ABG pH POC ABG pCO2 POC ABG pO2 VBG pH Sodium Potassium Chloride Carbon Dioxide BUN Creatinine Glucose POC Glucose Lactic Acid 5.90 H* Calcium Phosphorus Magnesium Iron Ferritin Total Bilirubin Direct Bilirubin Alkaline Phosphatase Lactate Dehydrogenase Total Creatine Kinase NT-Pro-B Natriuret Pep Total Protein Albumin Triglycerides Vitamin B12 Folate Urine WBC (Auto) Urine Creatinine 217.1 H 210.7 H Urine Total Protein 820 H Complement C3 03/09/18 03/09/18 03/09/18 15:53 18:20 20:39 WBC RBC Hgb Hct RDW Plt Count Seg Neuts % (Manual) Lymphocytes % (Manual) Monocytes % (Manual) Seg Neutrophils # Man Lymphocytes # (Manual) Monocytes # (Manual) PT INR APTT Fibrinogen POC ABG pH POC ABG pCO2 POC ABG pO2 VBG pH Sodium Potassium Chloride Carbon Dioxide BUN Creatinine Glucose POC Glucose 56 L Lactic Acid 5.10 H* 4.40 H* Calcium Phosphorus Magnesium Iron Ferritin Total Bilirubin Direct Bilirubin Alkaline Phosphatase Lactate Dehydrogenase Total Creatine Kinase NT-Pro-B Natriuret Pep Total Protein Albumin Triglycerides Vitamin B12 Folate Urine WBC (Auto) Urine Creatinine Urine Total Protein Complement C3 03/09/18 03/09/18 03/09/18 20:39 21:33 23:08 WBC RBC Hgb Hct RDW Plt Count Seg Neuts % (Manual) Lymphocytes % (Manual) Monocytes % (Manual) Seg Neutrophils # Man Lymphocytes # (Manual) Monocytes # (Manual) PT INR APTT Fibrinogen POC ABG pH POC ABG pCO2 POC ABG pO2 VBG pH Sodium Potassium Chloride Carbon Dioxide BUN Creatinine Glucose POC Glucose Lactic Acid 4.90 H* 4.10 H* Calcium Phosphorus Magnesium Iron Ferritin Total Bilirubin Direct Bilirubin Alkaline Phosphatase Lactate Dehydrogenase Total Creatine Kinase NT-Pro-B Natriuret Pep Total Protein Albumin Triglycerides Vitamin B12 Folate Urine WBC (Auto) Urine Creatinine Urine Total Protein Complement C3 77 L 03/10/18 03/10/18 03/10/18 01:00 04:40 04:40 WBC 11.8 H RBC Hgb 11.7 L Hct RDW Plt Count 8 L* Seg Neuts % (Manual) 93.0 H Lymphocytes % (Manual) 4.0 L Monocytes % (Manual) Seg Neutrophils # Man 11.0 H Lymphocytes # (Manual) 0.5 L Monocytes # (Manual) PT INR APTT Fibrinogen POC ABG pH POC ABG pCO2 POC ABG pO2 VBG pH Sodium 136 L Potassium Chloride 96.6 L Carbon Dioxide 21 L BUN 62 H Creatinine 4.9 H Glucose POC Glucose Lactic Acid 4.10 H* Calcium 6.2 L D Phosphorus Magnesium Iron Ferritin Total Bilirubin Direct Bilirubin Alkaline Phosphatase Lactate Dehydrogenase Total Creatine Kinase NT-Pro-B Natriuret Pep Total Protein Albumin Triglycerides Vitamin B12 Folate Urine WBC (Auto) Urine Creatinine Urine Total Protein Complement C3 03/10/18 03/10/18 03/10/18 05:32 06:00 09:10 WBC RBC Hgb Hct RDW Plt Count Seg Neuts % (Manual) Lymphocytes % (Manual) Monocytes % (Manual) Seg Neutrophils # Man Lymphocytes # (Manual) Monocytes # (Manual) PT INR APTT Fibrinogen POC ABG pH 7.254 L POC ABG pCO2 47.8 H POC ABG pO2 59 L VBG pH Sodium Potassium Chloride Carbon Dioxide BUN Creatinine Glucose POC Glucose 56 L Lactic Acid Calcium Phosphorus Magnesium Iron Ferritin Total Bilirubin Direct Bilirubin Alkaline Phosphatase Lactate Dehydrogenase Total Creatine Kinase NT-Pro-B Natriuret Pep Total Protein Albumin Triglycerides Vitamin B12 Folate Urine WBC (Auto) 32.0 H Urine Creatinine Urine Total Protein Complement C3 03/10/18 03/10/18 03/10/18 09:14 11:16 11:16 WBC RBC Hgb Hct RDW Plt Count Seg Neuts % (Manual) Lymphocytes % (Manual) Monocytes % (Manual) Seg Neutrophils # Man Lymphocytes # (Manual) Monocytes # (Manual) PT INR APTT Fibrinogen POC ABG pH 7.266 L POC ABG pCO2 POC ABG pO2 VBG pH Sodium Potassium Chloride Carbon Dioxide BUN Creatinine Glucose POC Glucose Lactic Acid Calcium Phosphorus Magnesium Iron Ferritin Total Bilirubin Direct Bilirubin Alkaline Phosphatase Lactate Dehydrogenase 338 H Total Creatine Kinase 404 H NT-Pro-B Natriuret Pep 63225 H Total Protein Albumin Triglycerides Vitamin B12 Folate Urine WBC (Auto) Urine Creatinine Urine Total Protein Complement C3 03/10/18 03/10/18 03/10/18 11:51 18:15 18:15 WBC RBC Hgb Hct RDW Plt Count Seg Neuts % (Manual) Lymphocytes % (Manual) Monocytes % (Manual) Seg Neutrophils # Man Lymphocytes # (Manual) Monocytes # (Manual) PT 17.2 H 17.0 H INR 1.36 H 1.34 H APTT 38.5 H Fibrinogen 852 H POC ABG pH POC ABG pCO2 POC ABG pO2 VBG pH Sodium Potassium Chloride Carbon Dioxide BUN Creatinine Glucose POC Glucose 109 H Lactic Acid Calcium Phosphorus Magnesium Iron Ferritin Total Bilirubin Direct Bilirubin Alkaline Phosphatase Lactate Dehydrogenase Total Creatine Kinase NT-Pro-B Natriuret Pep Total Protein Albumin Triglycerides Vitamin B12 Folate Urine WBC (Auto) Urine Creatinine Urine Total Protein Complement C3 03/10/18 03/10/18 03/10/18 19:45 20:40 22:07 WBC RBC Hgb Hct RDW Plt Count Seg Neuts % (Manual) Lymphocytes % (Manual) Monocytes % (Manual) Seg Neutrophils # Man Lymphocytes # (Manual) Monocytes # (Manual) PT INR APTT Fibrinogen POC ABG pH POC ABG pCO2 POC ABG pO2 VBG pH Sodium Potassium Chloride Carbon Dioxide BUN Creatinine Glucose POC Glucose 136 H 135 H 135 H Lactic Acid Calcium Phosphorus Magnesium Iron Ferritin Total Bilirubin Direct Bilirubin Alkaline Phosphatase Lactate Dehydrogenase Total Creatine Kinase NT-Pro-B Natriuret Pep Total Protein Albumin Triglycerides Vitamin B12 Folate Urine WBC (Auto) Urine Creatinine Urine Total Protein Complement C3 03/10/18 03/11/18 03/11/18 23:06 00:07 02:01 WBC RBC Hgb Hct RDW Plt Count Seg Neuts % (Manual) Lymphocytes % (Manual) Monocytes % (Manual) Seg Neutrophils # Man Lymphocytes # (Manual) Monocytes # (Manual) PT INR APTT Fibrinogen POC ABG pH POC ABG pCO2 POC ABG pO2 VBG pH Sodium Potassium Chloride Carbon Dioxide BUN Creatinine Glucose POC Glucose 133 H 148 H 161 H Lactic Acid Calcium Phosphorus Magnesium Iron Ferritin Total Bilirubin Direct Bilirubin Alkaline Phosphatase Lactate Dehydrogenase Total Creatine Kinase NT-Pro-B Natriuret Pep Total Protein Albumin Triglycerides Vitamin B12 Folate Urine WBC (Auto) Urine Creatinine Urine Total Protein Complement C3 03/11/18 03/11/18 03/11/18 03:10 04:12 04:50 WBC 12.8 H RBC Hgb 10.9 L Hct 32.5 L RDW 15.3 H Plt Count 17 L* D Seg Neuts % (Manual) 96.0 H Lymphocytes % (Manual) 2.0 L Monocytes % (Manual) Seg Neutrophils # Man 12.3 H Lymphocytes # (Manual) 0.3 L Monocytes # (Manual) PT INR APTT Fibrinogen POC ABG pH POC ABG pCO2 POC ABG pO2 VBG pH Sodium Potassium Chloride Carbon Dioxide BUN Creatinine Glucose POC Glucose 189 H 188 H Lactic Acid Calcium Phosphorus Magnesium Iron Ferritin Total Bilirubin Direct Bilirubin Alkaline Phosphatase Lactate Dehydrogenase Total Creatine Kinase NT-Pro-B Natriuret Pep Total Protein Albumin Triglycerides Vitamin B12 Folate Urine WBC (Auto) Urine Creatinine Urine Total Protein Complement C3 03/11/18 03/11/18 03/11/18 04:50 05:30 05:33 WBC RBC Hgb Hct RDW Plt Count Seg Neuts % (Manual) Lymphocytes % (Manual) Monocytes % (Manual) Seg Neutrophils # Man Lymphocytes # (Manual) Monocytes # (Manual) PT INR APTT Fibrinogen POC ABG pH POC ABG pCO2 POC ABG pO2 58 L VBG pH Sodium Potassium Chloride 94.2 L Carbon Dioxide BUN 62 H Creatinine 2.7 H Glucose 191 H POC Glucose 187 H Lactic Acid Calcium 7.9 L D Phosphorus Magnesium Iron Ferritin Total Bilirubin Direct Bilirubin Alkaline Phosphatase Lactate Dehydrogenase Total Creatine Kinase NT-Pro-B Natriuret Pep Total Protein Albumin Triglycerides Vitamin B12 Folate Urine WBC (Auto) Urine Creatinine Urine Total Protein Complement C3 03/11/18 03/11/18 03/11/18 07:47 12:11 13:18 WBC RBC Hgb Hct RDW Plt Count Seg Neuts % (Manual) Lymphocytes % (Manual) Monocytes % (Manual) Seg Neutrophils # Man Lymphocytes # (Manual) Monocytes # (Manual) PT INR APTT Fibrinogen POC ABG pH POC ABG pCO2 POC ABG pO2 VBG pH Sodium Potassium Chloride Carbon Dioxide BUN Creatinine Glucose POC Glucose 151 H 166 H 157 H Lactic Acid Calcium Phosphorus Magnesium Iron Ferritin Total Bilirubin Direct Bilirubin Alkaline Phosphatase Lactate Dehydrogenase Total Creatine Kinase NT-Pro-B Natriuret Pep Total Protein Albumin Triglycerides Vitamin B12 Folate Urine WBC (Auto) Urine Creatinine Urine Total Protein Complement C3 03/11/18 03/11/18 03/11/18 14:26 14:48 15:15 WBC 21.2 H RBC Hgb 11.0 L Hct 33.8 L RDW Plt Count 15 L* Seg Neuts % (Manual) 92.0 H Lymphocytes % (Manual) 4.0 L Monocytes % (Manual) Seg Neutrophils # Man 19.5 H Lymphocytes # (Manual) 0.8 L Monocytes # (Manual) PT INR APTT Fibrinogen POC ABG pH POC ABG pCO2 POC ABG pO2 VBG pH Sodium Potassium Chloride Carbon Dioxide BUN Creatinine Glucose POC Glucose 145 H 139 H Lactic Acid Calcium Phosphorus Magnesium Iron Ferritin Total Bilirubin Direct Bilirubin Alkaline Phosphatase Lactate Dehydrogenase Total Creatine Kinase NT-Pro-B Natriuret Pep Total Protein Albumin Triglycerides Vitamin B12 Folate Urine WBC (Auto) Urine Creatinine Urine Total Protein Complement C3 03/11/18 03/11/18 03/11/18 16:17 17:48 20:16 WBC RBC Hgb Hct RDW Plt Count Seg Neuts % (Manual) Lymphocytes % (Manual) Monocytes % (Manual) Seg Neutrophils # Man Lymphocytes # (Manual) Monocytes # (Manual) PT INR APTT Fibrinogen POC ABG pH POC ABG pCO2 POC ABG pO2 VBG pH Sodium Potassium Chloride Carbon Dioxide BUN Creatinine Glucose POC Glucose 145 H 142 H 158 H Lactic Acid Calcium Phosphorus Magnesium Iron Ferritin Total Bilirubin Direct Bilirubin Alkaline Phosphatase Lactate Dehydrogenase Total Creatine Kinase NT-Pro-B Natriuret Pep Total Protein Albumin Triglycerides Vitamin B12 Folate Urine WBC (Auto) Urine Creatinine Urine Total Protein Complement C3 03/11/18 03/11/18 03/12/18 21:02 23:14 00:54 WBC 29.6 H RBC Hgb 10.6 L Hct 31.3 L RDW Plt Count 51 L D Seg Neuts % (Manual) Lymphocytes % (Manual) Monocytes % (Manual) Seg Neutrophils # Man Lymphocytes # (Manual) Monocytes # (Manual) PT INR APTT Fibrinogen POC ABG pH POC ABG pCO2 POC ABG pO2 VBG pH Sodium Potassium Chloride Carbon Dioxide BUN Creatinine Glucose POC Glucose 146 H 168 H Lactic Acid Calcium Phosphorus Magnesium Iron Ferritin Total Bilirubin Direct Bilirubin Alkaline Phosphatase Lactate Dehydrogenase Total Creatine Kinase NT-Pro-B Natriuret Pep Total Protein Albumin Triglycerides Vitamin B12 Folate Urine WBC (Auto) Urine Creatinine Urine Total Protein Complement C3 03/12/18 03/12/18 03/12/18 06:19 06:29 06:29 WBC 32.7 H RBC Hgb 10.5 L Hct 31.7 L RDW 15.3 H Plt Count 34 L Seg Neuts % (Manual) 81.5 H Lymphocytes % (Manual) 7.0 L Monocytes % (Manual) 7.5 H Seg Neutrophils # Man 26.7 H Lymphocytes # (Manual) Monocytes # (Manual) 2.5 H PT INR APTT Fibrinogen POC ABG pH POC ABG pCO2 POC ABG pO2 VBG pH Sodium Potassium 3.4 L Chloride Carbon Dioxide BUN 69 H Creatinine 2.2 H Glucose 181 H POC Glucose 185 H Lactic Acid Calcium Phosphorus Magnesium Iron Ferritin Total Bilirubin Direct Bilirubin Alkaline Phosphatase Lactate Dehydrogenase Total Creatine Kinase NT-Pro-B Natriuret Pep Total Protein Albumin Triglycerides Vitamin B12 Folate Urine WBC (Auto) Urine Creatinine Urine Total Protein Complement C3 03/12/18 03/12/18 03/12/18 06:29 07:21 07:44 WBC RBC Hgb Hct RDW Plt Count Seg Neuts % (Manual) Lymphocytes % (Manual) Monocytes % (Manual) Seg Neutrophils # Man Lymphocytes # (Manual) Monocytes # (Manual) PT INR APTT Fibrinogen POC ABG pH 7.337 L POC ABG pCO2 54.9 H POC ABG pO2 59 L VBG pH Sodium Potassium Chloride Carbon Dioxide BUN Creatinine Glucose POC Glucose 157 H Lactic Acid Calcium Phosphorus Magnesium Iron Ferritin Total Bilirubin 2.30 H Direct Bilirubin 1.5 H Alkaline Phosphatase Lactate Dehydrogenase Total Creatine Kinase NT-Pro-B Natriuret Pep Total Protein 6.2 L Albumin 3.1 L Triglycerides Vitamin B12 Folate Urine WBC (Auto) Urine Creatinine Urine Total Protein Complement C3 03/12/18 03/12/18 03/12/18 10:16 12:53 15:22 WBC RBC Hgb Hct RDW Plt Count Seg Neuts % (Manual) Lymphocytes % (Manual) Monocytes % (Manual) Seg Neutrophils # Man Lymphocytes # (Manual) Monocytes # (Manual) PT INR APTT Fibrinogen POC ABG pH POC ABG pCO2 61.7 H POC ABG pO2 110 H VBG pH Sodium Potassium Chloride Carbon Dioxide BUN Creatinine Glucose POC Glucose 153 H 148 H Lactic Acid Calcium Phosphorus Magnesium Iron Ferritin Total Bilirubin Direct Bilirubin Alkaline Phosphatase Lactate Dehydrogenase Total Creatine Kinase NT-Pro-B Natriuret Pep Total Protein Albumin Triglycerides Vitamin B12 Folate Urine WBC (Auto) Urine Creatinine Urine Total Protein Complement C3 03/12/18 03/12/18 03/13/18 18:17 21:34 01:14 WBC RBC Hgb Hct RDW Plt Count Seg Neuts % (Manual) Lymphocytes % (Manual) Monocytes % (Manual) Seg Neutrophils # Man Lymphocytes # (Manual) Monocytes # (Manual) PT INR APTT Fibrinogen POC ABG pH POC ABG pCO2 POC ABG pO2 VBG pH Sodium Potassium Chloride Carbon Dioxide BUN Creatinine Glucose POC Glucose 148 H 161 H 187 H Lactic Acid Calcium Phosphorus Magnesium Iron Ferritin Total Bilirubin Direct Bilirubin Alkaline Phosphatase Lactate Dehydrogenase Total Creatine Kinase NT-Pro-B Natriuret Pep Total Protein Albumin Triglycerides Vitamin B12 Folate Urine WBC (Auto) Urine Creatinine Urine Total Protein Complement C3 03/13/18 03/13/18 03/13/18 04:37 05:22 05:22 WBC 30.4 H RBC 3.45 L Hgb 9.8 L Hct 29.7 L RDW Plt Count 37 L Seg Neuts % (Manual) 75.5 H Lymphocytes % (Manual) 3.0 L Monocytes % (Manual) Seg Neutrophils # Man 23.0 H Lymphocytes # (Manual) 0.9 L Monocytes # (Manual) PT INR APTT Fibrinogen POC ABG pH POC ABG pCO2 60.2 H POC ABG pO2 115 H VBG pH Sodium 146 H Potassium Chloride Carbon Dioxide 35 H D BUN 71 H Creatinine 1.7 H Glucose 187 H POC Glucose Lactic Acid Calcium Phosphorus Magnesium Iron Ferritin Total Bilirubin Direct Bilirubin Alkaline Phosphatase Lactate Dehydrogenase Total Creatine Kinase NT-Pro-B Natriuret Pep Total Protein Albumin Triglycerides Vitamin B12 Folate Urine WBC (Auto) Urine Creatinine Urine Total Protein Complement C3 03/13/18 03/13/18 03/13/18 08:24 12:22 12:44 WBC RBC Hgb Hct RDW Plt Count Seg Neuts % (Manual) Lymphocytes % (Manual) Monocytes % (Manual) Seg Neutrophils # Man Lymphocytes # (Manual) Monocytes # (Manual) PT INR APTT Fibrinogen POC ABG pH POC ABG pCO2 POC ABG pO2 VBG pH Sodium Potassium Chloride Carbon Dioxide BUN Creatinine Glucose POC Glucose 210 H 208 H Lactic Acid Calcium Phosphorus Magnesium 3.00 H Iron Ferritin Total Bilirubin Direct Bilirubin Alkaline Phosphatase Lactate Dehydrogenase Total Creatine Kinase NT-Pro-B Natriuret Pep Total Protein Albumin Triglycerides Vitamin B12 Folate Urine WBC (Auto) Urine Creatinine Urine Total Protein Complement C3 03/13/18 03/13/18 03/14/18 17:27 23:35 04:29 WBC RBC Hgb Hct RDW Plt Count Seg Neuts % (Manual) Lymphocytes % (Manual) Monocytes % (Manual) Seg Neutrophils # Man Lymphocytes # (Manual) Monocytes # (Manual) PT INR APTT Fibrinogen POC ABG pH 7.502 H POC ABG pCO2 53.2 H POC ABG pO2 VBG pH Sodium Potassium Chloride Carbon Dioxide BUN Creatinine Glucose POC Glucose 169 H 256 H Lactic Acid Calcium Phosphorus Magnesium Iron Ferritin Total Bilirubin Direct Bilirubin Alkaline Phosphatase Lactate Dehydrogenase Total Creatine Kinase NT-Pro-B Natriuret Pep Total Protein Albumin Triglycerides Vitamin B12 Folate Urine WBC (Auto) Urine Creatinine Urine Total Protein Complement C3 03/14/18 03/14/18 03/14/18 05:23 06:00 06:00 WBC 27.3 H RBC 3.52 L Hgb 10.0 L Hct 30.8 L RDW Plt Count 50 L Seg Neuts % (Manual) 87.0 H Lymphocytes % (Manual) 3.0 L Monocytes % (Manual) Seg Neutrophils # Man 23.8 H Lymphocytes # (Manual) 0.8 L Monocytes # (Manual) 1.6 H PT INR APTT Fibrinogen POC ABG pH POC ABG pCO2 POC ABG pO2 VBG pH Sodium Potassium Chloride Carbon Dioxide BUN Creatinine Glucose POC Glucose 212 H Lactic Acid Calcium Phosphorus Magnesium Iron Ferritin Total Bilirubin Direct Bilirubin Alkaline Phosphatase Lactate Dehydrogenase Total Creatine Kinase 17 L NT-Pro-B Natriuret Pep Total Protein Albumin Triglycerides Vitamin B12 Folate Urine WBC (Auto) Urine Creatinine Urine Total Protein Complement C3 03/14/18 03/14/18 03/14/18 06:00 07:00 07:00 WBC RBC Hgb Hct RDW Plt Count Seg Neuts % (Manual) Lymphocytes % (Manual) Monocytes % (Manual) Seg Neutrophils # Man Lymphocytes # (Manual) Monocytes # (Manual) PT INR APTT Fibrinogen POC ABG pH POC ABG pCO2 POC ABG pO2 VBG pH Sodium 156 H D Potassium Chloride 109.5 H Carbon Dioxide 37 H BUN 70 H Creatinine Glucose 202 H POC Glucose Lactic Acid Calcium Phosphorus Magnesium Iron 42 L Ferritin 532.4 H Total Bilirubin Direct Bilirubin Alkaline Phosphatase Lactate Dehydrogenase Total Creatine Kinase NT-Pro-B Natriuret Pep Total Protein Albumin Triglycerides Vitamin B12 Folate Urine WBC (Auto) Urine Creatinine Urine Total Protein Complement C3 03/14/18 03/14/1803/14/19 07:00 07:00 07:00 WBC RBC Hgb Hct RDW Plt Count Seg Neuts % (Manual) Lymphocytes % (Manual) Monocytes % (Manual) Seg Neutrophils # Man Lymphocytes # (Manual) Monocytes # (Manual) PT INR APTT Fibrinogen POC ABG pH POC ABG pCO2 POC ABG pO2 VBG pH Sodium Potassium Chloride Carbon Dioxide BUN Creatinine Glucose POC Glucose Lactic Acid Calcium Phosphorus Magnesium Iron Ferritin Total Bilirubin Direct Bilirubin Alkaline Phosphatase Lactate Dehydrogenase Total Creatine Kinase NT-Pro-B Natriuret Pep Total Protein Albumin Triglycerides 532 H Vitamin B12 1825 H Folate 6.29 L Urine WBC (Auto) Urine Creatinine Urine Total Protein Complement C3 03/14/18 03/14/18 03/14/18 13:01 17:37 21:04 WBC RBC Hgb Hct RDW Plt Count Seg Neuts % (Manual) Lymphocytes % (Manual) Monocytes % (Manual) Seg Neutrophils # Man Lymphocytes # (Manual) Monocytes # (Manual) PT INR APTT Fibrinogen POC ABG pH POC ABG pCO2 POC ABG pO2 VBG pH Sodium 155 H Potassium Chloride 114.1 H Carbon Dioxide 33 H BUN 58 H Creatinine Glucose 166 H POC Glucose 201 H 179 H Lactic Acid Calcium Phosphorus Magnesium Iron Ferritin Total Bilirubin Direct Bilirubin Alkaline Phosphatase Lactate Dehydrogenase Total Creatine Kinase NT-Pro-B Natriuret Pep Total Protein Albumin Triglycerides Vitamin B12 Folate Urine WBC (Auto) Urine Creatinine Urine Total Protein Complement C3 03/14/18 03/15/18 03/15/18 23:30 04:44 04:44 WBC 26.0 H RBC Hgb 10.5 L Hct 33.0 L RDW Plt Count 70 L Seg Neuts % (Manual) Lymphocytes % (Manual) Monocytes % (Manual) Seg Neutrophils # Man Lymphocytes # (Manual) Monocytes # (Manual) PT INR APTT Fibrinogen POC ABG pH POC ABG pCO2 POC ABG pO2 VBG pH Sodium 155 H Potassium Chloride 114.3 H Carbon Dioxide 31 H BUN 51 H Creatinine Glucose 173 H POC Glucose 167 H Lactic Acid Calcium Phosphorus Magnesium Iron Ferritin Total Bilirubin Direct Bilirubin Alkaline Phosphatase Lactate Dehydrogenase Total Creatine Kinase NT-Pro-B Natriuret Pep Total Protein Albumin Triglycerides Vitamin B12 Folate Urine WBC (Auto) Urine Creatinine Urine Total Protein Complement C3 03/15/18 03/15/18 04:53 06:36 WBC RBC Hgb Hct RDW Plt Count Seg Neuts % (Manual) Lymphocytes % (Manual) Monocytes % (Manual) Seg Neutrophils # Man Lymphocytes # (Manual) Monocytes # (Manual) PT INR APTT Fibrinogen POC ABG pH POC ABG pCO2 59.0 H POC ABG pO2 112 H VBG pH Sodium Potassium Chloride Carbon Dioxide BUN Creatinine Glucose POC Glucose 199 H Lactic Acid Calcium Phosphorus Magnesium Iron Ferritin Total Bilirubin Direct Bilirubin Alkaline Phosphatase Lactate Dehydrogenase Total Creatine Kinase NT-Pro-B Natriuret Pep Total Protein Albumin Triglycerides Vitamin B12 Folate Urine WBC (Auto) Urine Creatinine Urine Total Protein Complement C3
--- NOTE | 2018-03-15 10:07 | Progress Note ---
Assessment and Plan Cultures: 03/09/2018 blood culture: Hemophilus hemolyticus in both sets 03/09/2018 influenza rapid: Negative 03/10/2018 urine culture: Negative 03/12/2018 Resp culture: usual resp thomas. 03/12/2018 Crypto Ag serum: negative. 03/13/2018 blood culture no growth so far A/P: 33/M with no medical history, admitted with: 1) Septic shock: off vasopressin today; etio ? H flu bacteremia. 2) Acute respiratory failure: now on vent. Initial CXR not suggestive of pneumonia, low suspicion for PJP pneumonia especially since patient reported a good recent CD4 count. Repeat CXRs are probably more suggestive of fluid overload / pulmonary edema which has steadily been improving with diuretics. Anyways, patient on Atovaquone which will cover PJP. Avoiding Bactrim due to thrombocytopenia. 3) Haemophilus hemolyticus bacteremia: source unclear ?lung ? sinuses. Initial CXR not suggestive of pneumonia. Repeat blood cultures neg 4) HIV positive: Apparently he has been HIV positive, used to be on meds - Genvoya but stopped taking it 6 months ago, states his last CD4 count was 400+. HIV RNA PCR and CD4 count pending. 5) Acute renal failure: resolved 6) Severe thrombocytopenia, coagulopathy: TTP v/s DIC- improving. [id number] pending. No schistocytes. FELICIA neg, ANCA neg. C3 low (unclear significance), C4 normal. 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 etiology unclear. ?HIV related. Cardiology following. Recs: - request CT head/sinus and chest to eval for source of bacteremia in light of p ersistent need for pressors/fever - pending - continue Cefepime 2 gm q12 hrs D6 of 10 - continue mepron (atovaquone) - HIV PCR and CD4 count pending - ordered - remove right fem TLC today ok to place PICC I discussed with his brother Caden Liu who stated his brother told him about HIV infection but not any other family member. His mother was unintentionally alerted by a Health department call but patient did not want any other person other than his brother to know. Will follow. Please call with questions. MD [facility] C: [phone] O: [phone] F: [phone] Subjective Date of service: 03/15/18 Principal diagnosis: respiratory failure, shock, HIV, sepsis, low plt Interval history: Patient remains on the vent, tmax 100, on sedation but agitated, on his way to have CT head Objective - Exam Narrative Exam: Constitutional: sedated but agitated intubated, on vent. Head, Ears, Nose: Normocephalic, atraumatic. External ears, nose normal Eyes: Conjunctivae/corneas clear. No icterus. No ptosis. Neck: Supple, no meningeal signs Oral: intubated, +ETT, +NGT Cardiovascular: RRR Respiratory: CTA ace GI: bowel sounds normal. No peritoneal signs Musculoskeletal: No pedal edema, no cyanosis. Skin: No rash or abscess Hem/Lymphatic: No palpable cervical or supraclavicular nodes. No lymphangitis Psych: sedated Neurological: sedated, intubated, exam limited Right fem TLC - Constitutional Vitals: Vital Signs Temp Pulse Resp BP Pulse Ox 99.0 F 93 H 12 121/67 81 L 03/15/18 08:00 03/15/18 08:30 03/15/18 08:30 03/15/18 08:30 03/15/18 08:30 Temperature -Last 24 Hours Temperature 99.0 F Temperature 98.4 F Temperature 97.6 F Temperature 100 F Temperature 99.9 F Temperature 99.8 F - Labs CBC & Chem 7: 03/15/18 04:44 03/15/18 04:44 Labs: Abnormal lab results 03/14/18 03/14/18 03/14/18 Range/Units 13:01 17:37 21:04 WBC (4.5-11.0) K/mm3 Hgb (11.8-15.2) gm/dl Hct (35.5-45.6) % Plt Count (140-440) K/mm3 POC ABG pCO2 (35-45) POC ABG pO2 (80-105) Sodium 155 H (137-145) mmol/L Chloride 114.1 H (98-107) mmol/L Carbon Dioxide 33 H (22-30) mmol/L BUN 58 H (9-20) mg/dL Glucose 166 H (75-100) mg/dL POC Glucose 201 H 179 H (70-105) Magnesium (1.7-2.3) mg/dL 03/14/18 03/15/18 03/15/18 Range/Units 23:30 04:44 04:44 WBC 26.0 H (4.5-11.0) K/mm3 Hgb 10.5 L (11.8-15.2) gm/dl Hct 33.0 L (35.5-45.6) % Plt Count 70 L (140-440) K/mm3 POC ABG pCO2 (35-45) POC ABG pO2 (80-105) Sodium 155 H (137-145) mmol/L Chloride 114.3 H (98-107) mmol/L Carbon Dioxide 31 H (22-30) mmol/L BUN 51 H (9-20) mg/dL Glucose 173 H (75-100) mg/dL POC Glucose 167 H (70-105) Magnesium (1.7-2.3) mg/dL 03/15/18 03/15/18 03/15/18 Range/Units 04:44 04:53 06:36 WBC (4.5-11.0) K/mm3 Hgb (11.8-15.2) gm/dl Hct (35.5-45.6) % Plt Count (140-440) K/mm3 POC ABG pCO2 59.0 H (35-45) POC ABG pO2 112 H (80-105) Sodium (137-145) mmol/L Chloride (98-107) mmol/L Carbon Dioxide (22-30) mmol/L BUN (9-20) mg/dL Glucose (75-100) mg/dL POC Glucose 199 H (70-105) Magnesium 2.80 H (1.7-2.3) mg/dL
--- NOTE | 2018-03-15 10:18 | Cat Scan Report ---
CT HEAD WITHOUT CONTRAST: HISTORY: Sepsis with Haemophilus bacteremia. TECHNIQUE: Sequential 2.5mm CT images. COMPARISON: none. FINDINGS: Cerebral Parenchyma: Within normal limits. Cerebellum: Within normal limits. Brainstem: Within normal limits. Ventricles: Normal. Sella: Normal. Extra-axial spaces: Normal. Basal Cisterns: Normal. Intracranial Hemorrhage: None. Midline Shift: None. Calvarium: Normal. Sinuses: Normal. Mastoid Air Cells: Normal. Visualized Orbits: Normal. IMPRESSION: Cranial CT scan within normal limits.
--- NOTE | 2018-03-15 10:19 | Cat Scan Report ---
CT SINUSES WITHOUT CONTRAST: HISTORY: Evaluate for sinusitis. TECHNIQUE: Helical CT with sagittal and coronal reformatted images. The visualized sinus groups are well aerated. The ostiomeatal units are normal and patent bilaterally. The nasal septum is midline. The nasal turbinates are symmetrical. There is no evidence of oscar bullosa or sinusitis. CONCLUSION: Negative sinus CT.
--- NOTE | 2018-03-15 10:21 | Cat Scan Report ---
CT CHEST WITH CONTRAST: HISTORY: Evaluate for pneumonia, empyema, lung abscess. COMPARISON: none. TECHNIQUE: Helical CT in 1.25mm intervals following IV contrast. Sagittal and coronal reformatted images. FINDINGS: Thyroid gland: Normal. Tracheobronchial tree: An endotracheal tube is in position. There are moderate regions in the trachea and mainstem bronchi bilaterally. Esophagus: Normal. Heart: Normal. Pericardium: Normal. Mediastinum: Normal. Lung Kaur: There is partial atelectasis throughout the posterior left lower lobe. This is probably secondary to mucous plugging. Superimposed infiltrate is difficult to exclude. The remainder of the lungs are adequately aerated. Pleural Spaces: Normal. Musculoskeletal: Normal. IMPRESSION: Partial atelectasis in the left lower lobe. Otherwise, negative CT chest.
--- NOTE | 2018-03-15 10:51 | Progress Note ---
Assessment and Plan Acute renal failure, prerenal azotemia vs. ischemic ATN from hypotension Lactic acidosis hypernatremia Nausea and vomiting, likely gastroenteritis Hypokalemia Hypocalcemia Dilated Cardiomyopathy Acute Pulmonary Edema Thrombocytopenia Plan: - Cr is stable - will increase D5W to 75 cc/h (D5W has minimal risk to worsen volume overload) - HIV 1&2 rapid antibody was reactive, ID on board, f/u recs - was given one dose of Diamox for alkalosis, will d/c sodium bicarb - Renal US negative hydronephrosis - Cardiology, Hematology, Pulmonology, and ID on board - Off pressors - Renally dose meds - Strict intake and output Subjective Date of service: 03/15/18 Principal diagnosis: respiratory failure, shock, HIV, sepsis, low plt Interval history: intubated and sedated, mother at bedside, all questions answered Objective - Vital Signs Vital signs: Vital Signs - 12hr 03/14/18 03/14/18 03/14/18 23:00 23:15 23:19 Temperature Pulse Rate 82 82 84 Pulse Rate [ From Monitor] Respiratory 20 20 20 Rate Blood Pressure 109/59 112/58 112/58 O2 Sat by Pulse 95 95 98 Oximetry 03/14/18 03/14/18 03/14/18 23:24 23:30 23:45 Temperature Pulse Rate 84 84 118 H Pulse Rate [ From Monitor] Respiratory 20 25 H Rate Blood Pressure 112/58 105/49 105/49 O2 Sat by Pulse 99 92 99 Oximetry 03/15/18 03/15/18 03/15/18 00:00 00:15 00:30 Temperature 97.6 F Pulse Rate 102 H 89 85 Pulse Rate [ 81 From Monitor] Respiratory 20 20 20 Rate Blood Pressure 102/62 105/58 106/54 O2 Sat by Pulse 95 94 93 Oximetry 03/15/18 03/15/18 03/15/18 00:45 01:00 01:15 Temperature Pulse Rate 80 78 105 H Pulse Rate [ From Monitor] Respiratory 20 19 20 Rate Blood Pressure 113/56 110/56 100/63 O2 Sat by Pulse 89 85 93 Oximetry 03/15/18 03/15/18 03/15/18 01:30 01:45 02:00 Temperature Pulse Rate 79 70 75 Pulse Rate [ From Monitor] Respiratory 19 19 18 Rate Blood Pressure 102/57 111/58 120/76 O2 Sat by Pulse 91 90 92 Oximetry 03/15/18 03/15/18 03/15/18 02:15 02:30 02:45 Temperature Pulse Rate 69 69 75 Pulse Rate [ From Monitor] Respiratory 20 20 20 Rate Blood Pressure 115/62 113/63 113/62 O2 Sat by Pulse 91 89 94 Oximetry 03/15/18 03/15/18 03/15/18 03:00 03:15 03:30 Temperature Pulse Rate 70 70 68 Pulse Rate [ From Monitor] Respiratory 20 20 20 Rate Blood Pressure 117/62 116/60 118/58 O2 Sat by Pulse 95 95 90 Oximetry 03/15/18 03/15/18 03/15/18 03:45 04:00 04:15 Temperature 98.4 F Pulse Rate 80 75 70 Pulse Rate [ 80 From Monitor] Respiratory 20 19 20 Rate Blood Pressure 117/61 110/64 129/56 O2 Sat by Pulse 90 97 94 Oximetry 03/15/18 03/15/18 03/15/18 04:30 04:38 04:45 Temperature Pulse Rate 78 72 82 Pulse Rate [ From Monitor] Respiratory 20 12 Rate Blood Pressure 116/66 116/66 126/74 O2 Sat by Pulse 92 98 97 Oximetry 03/15/18 03/15/18 03/15/18 05:00 05:15 05:30 Temperature Pulse Rate 70 78 73 Pulse Rate [ From Monitor] Respiratory 20 20 20 Rate Blood Pressure 121/63 115/57 118/58 O2 Sat by Pulse 92 93 93 Oximetry 03/15/18 03/15/18 03/15/18 05:45 06:00 06:15 Temperature Pulse Rate 83 80 71 Pulse Rate [ From Monitor] Respiratory 20 17 15 Rate Blood Pressure 114/64 121/56 122/57 O2 Sat by Pulse 94 92 89 Oximetry 03/15/18 03/15/18 03/15/18 06:30 06:45 07:00 Temperature Pulse Rate 71 68 77 Pulse Rate [ From Monitor] Respiratory 19 21 11 L Rate Blood Pressure 117/59 113/58 113/62 O2 Sat by Pulse 89 91 90 Oximetry 03/15/18 03/15/18 03/15/18 07:15 07:31 07:35 Temperature Pulse Rate 101 H 106 H Pulse Rate [ From Monitor] Respiratory 23 21 20 Rate Blood Pressure 113/58 136/73 O2 Sat by Pulse 96 93 Oximetry 03/15/18 03/15/18 03/15/18 07:45 08:00 08:01 Temperature 99.0 F Pulse Rate 95 H 89 Pulse Rate [ 92 H From Monitor] Respiratory 13 23 11 L Rate Blood Pressure 137/65 124/67 O2 Sat by Pulse 92 97 84 Oximetry 03/15/18 03/15/18 03/15/18 08:15 08:24 08:30 Temperature Pulse Rate 82 93 H Pulse Rate [ From Monitor] Respiratory 11 L 12 Rate Blood Pressure 126/64 126/64 121/67 O2 Sat by Pulse 84 88 81 L Oximetry - General Appearance General appearance: well-developed, well-nourished, appears stated age EENT: ATNC, PERRL Neck: no JVD Respiratory: Present: Rales, Ronchi Cardiology: tachycardia Integumentary: no rash, warm and dry Neurologic: other (sedated and intubated) Musculoskeletal: other (no edema in BLE) Psychiatric: other (sedated and intubated) - Lab 03/15/18 04:44 03/15/18 04:44 Most recent lab results Calcium 8.9 mg/dL (8.4-10.2) 03/15/18 04:44 Phosphorus 2.80 mg/dL (2.5-4.5) 03/15/18 04:44 Magnesium 2.80 mg/dL (1.7-2.3) H 03/15/18 04:44 Urine Creatinine 210.7 mg/dL (0.1-20.0) H 03/09/18 14:39 Urine Sodium 81 mmol/L 03/14/18 18:50 Urine Total Protein 820 mg/dL (5-11.8) H 03/09/18 14:39 Medications & Allergies - Medications Allergies/Adverse Reactions: Allergies clindamycin Allergy (Verified 03/09/18 06:43) Swelling Home Medications: Home Medications Medication Instructions Recorded Confirmed Last Taken Type No Known Home Medications [No 03/09/18 03/09/18 Unknown History Reported Home Medications] Active Medications: Generic Name Dose Route Start Last Admin Trade Name Freq PRN Reason Stop Dose Admin Lipase/Protease/Amylase 1 each 03/14/18 16:04 Pancrejaire 10,500 Unit FEEDTUBE PRN PRN For Clogged Feeding Tube Atovaquone 1,500 mg 03/11/18 20:00 03/14/18 10:21 Mepron PO 1,500 mg QDAY LIU Administration Dextrose 50 ml 03/09/18 16:15 D50w (25gm) Syringe IV PRN PRN HYPOGLYCEMIA Fentanyl 50 mcg 03/14/18 09:44 03/15/18 07:35 Sublimaze IV 50 mcg Q2H PRN Administration Pain , Severe (7-10) Folic Acid 1 mg 03/15/18 10:00 Folvite PO QDAY LIU Haloperidol Lactate 5 mg 03/12/18 02:15 03/15/18 07:18 Haldol IV 5 mg Q6H PRN Administration Agitation Hydrophilic Ointment 1 applic 03/12/18 07:47 03/13/18 11:34 Vaseline Lip Therapy TP 1 applic Q2HR PRN Administration Dry Lips Norepinephrine 4 mg in 250 mls @ 7.5 mls/hr 03/09/18 23:45 03/12/18 13:57 Levophed Drip 4 Mg/Ns 250 Ml IV 0 mcg/min TITR LIU 0 mls/hr Titration Protocol 2 MCG/MIN Vasopressin 20 unit/ Sodium 101 mls @ 9.09 mls/hr 03/10/18 11:00 03/14/18 10:30 Chloride IV 0 units/min TITR LIU 0 mls/hr Titration Protocol 0.03 UNITS/MIN Dexamethasone 20 mg/ Sodium 55 mls @ 100 mls/hr 03/11/18 11:30 03/14/18 22:47 Chloride IV 100 mls/hr Q12HR LIU Administration Propofol 1,000 mg in 100 mls @ 2.721 mls/hr 03/12/18 08:00 03/15/18 08:06 Diprivan 10 Mg/Ml IV 10 mcg/kg/min TITR LIU 5.442 mls/hr Titration Protocol 5 MCG/KG/MIN Cefepime HCl 2 gm in 100 mls @ 200 mls/hr 03/13/18 10:00 03/14/18 22:47 Maxipime/Ns 2 Gm/100 Ml IV 200 mls/hr Q12HR LIU Administration Fentanyl Citrate 2,000 mcg in 100 mls @ 4.535 mls/hr 03/14/18 10:00 03/15/18 08:04 Fentanyl Drip Premix IV 4 mcg/kg/hr TITR LIU 18.14 mls/hr Administration Protocol 1 MCG/KG/HR Dextrose 1,000 mls @ 75 mls/hr 03/14/18 11:00 03/15/18 08:09 D5w IV 50 mls/hr DIRECT LIU Administration Insulin Human Lispro 0 unit 03/14/18 12:00 03/15/18 06:44 Humalog SUB-Q 3 unit Q6HR LIU Administration Protocol Lansoprazole 30 mg 03/14/18 10:00 03/14/18 10:23 Prevacid Solutab FEEDTUBE 30 mg QDAY LIU Administration Lorazepam 1 mg 03/11/18 16:56 03/15/18 06:00 Ativan IV 1 mg Q4H PRN Administration Anxiety Morphine Sulfate 2 mg 03/14/18 05:25 03/14/18 07:49 Morphine IV 2 mg Q4H PRN Administration Pain, Moderate (4-6) Multi-Ingred Cream/Lotion/Oil/Oint 1 applic 03/12/18 07:47 Artificial Tears Ophth Oint OU Q4HR PRN Dry Eye(s) Ondansetron HCl 4 mg 03/14/18 08:00 Zofran IV Q8H PRN Nausea And Vomiting Simple Syrup 15 ml 03/14/18 16:04 Simple Syrup FEEDTUBE PRN PRN Hypoglycemia Simple Syrup 30 ml 03/14/18 16:04 Simple Syrup FEEDTUBE PRN PRN Hypoglycemia Sodium Bicarbonate 325 mg 03/14/18 16:04 Sodium Bicarbonate FEEDTUBE PRN PRN For Clogged Feeding Tube Sodium Chloride 10 ml 03/09/18 22:00 03/14/18 22:50 Sodium Chloride Flush Syringe 10 Ml IV 10 ml BID LIU Administration Sodium Chloride 10 ml 03/09/18 10:41 Sodium Chloride Flush Syringe 10 Ml IV PRN PRN LINE FLUSH
[2018-03-15 10:56] LABS: Anisocytosis 1+; Basophils % (Manual) 0 % (0.0-1.8); Eosinophils % (Manual) 0 % (0.0-4.3); Hypochromasia 1+; Platelet Estimate Consistent w Auto; Total Cells Counted 100
[2018-03-15 11:17] LABS: CD4/CD8 Ratio 0.56 (0.86-5.00)
[2018-03-15] MEDS: MAXIPIME/NS 2 GM/100 ML 2 GM/100 ML BAG IV SCH ×2 (11:39→22:37)
[2018-03-15] MEDS: DECADRON 20 MG in NACL 0.9% 50 ML IV SCH ×2 (11:39→22:37)
[2018-03-15] MEDS: FOLVITE PO SCH (11:40)
[2018-03-15] MEDS: MEPRON PO SCH (11:40)
[2018-03-15] MEDS: PREVACID SOLUTAB FEEDTUBE SCH (11:41)
[2018-03-15] MEDS: SODIUM CHLORIDE FLUSH SYRINGE 10 ML IV SCH ×2 (11:41→22:30)
[2018-03-15 14:28] LABS: HIV-1 RNA QN PCR 4.71 Log cps/mL
[2018-03-15] MEDS ORDERED: VERSED IV PRN (18:03)
--- NOTE | 2018-03-15 20:28 | Progress Note ---
Assessment and Plan Assessment and plan: 33 yo with HIV infection. He initially presented with nausea, vomiting, general weakness and chills for 2 days. He was getting weaker, no Urine output therefore came to ED for evaluation. In ED, labs show acute kidney injury with metabolic acidosis thrombocytopenia. He was Sepic, hypotensive. Septic shock/Haemophilus hemolyticus bacteremia sp IVF and pressors, weaned off pressors Antibiotics per ID head and Sinus CT negative Thrombocytopenia, stable and improving, , no schistocytes seen on smear sp plt transfusion and steroids The patient's mother does not know that he is HIV positive, he would not like her to be informed about it. Acute hypoxic respiratory failure on mechanical ventilatory to 96 hours, intubated since 03/12/17 Pulmonary input appreciated, left hemidiaphragm is elevated, needs CT chests, management per pulmonology HIV positive. Diagnosed 6 yrs ago, Stopped taking his medications over 6 months ago which was generally oriented. Last CD4 count was 400, current CD4 and HIV viral load are still pending SCOTT resolved, avoid nephrotoxins Hyponatremia,Hypoglycemia. treated and resolved Coagulopathy, improved Acute toxic metabolic encephalpathy has been agitated and hard to sedate, obtain UDS -cont iv sedation dvt ppx -scds in light of thrombocytopenia Critical care time 35 minutes History Interval history: Patient has been agitated easily, requiring restraints and IV sedation No fevers, no seizures no vomiting Hospitalist Physical - Physical exam Narrative exam: General.: Appears well, no distress, nontoxic HEENT: Moist mucous membranes, extraocular muscles intact, no lymphadenopathy Neck: supple Cardiac: S1-S2 heard Lungs: Ventilated breath sounds Abdomen: soft , nontender, nondistended, bowel sounds positive Extremities: no edema clubbing or cyanosis Skin: no rash or lesions Neurologic: Intubated and sedated - Constitutional Vitals: Temp Pulse Resp BP Pulse Ox 98.8 F 82 22 110/59 95 03/15/18 16:00 03/15/18 20:04 03/15/18 18:30 03/15/18 20:04 03/15/18 20:04 General appearance: Present: cachectic, other (chronically ill-appearing) Results - Labs CBC & Chem 7: 03/16/18 05:01 03/16/18 10:33 Labs: Laboratory Last Values WBC 26.0 K/mm3 (4.5-11.0) H 03/15/18 04:44 RBC 3.73 M/mm3 (3.65-5.03) 03/15/18 04:44 Hgb 10.5 gm/dl (11.8-15.2) L 03/15/18 04:44 Hct 33.0 % (35.5-45.6) L 03/15/18 04:44 MCV 89 fl (84-94) 03/15/18 04:44 MCH 28 pg (28-32) 03/15/18 04:44 MCHC 32 % (32-34) 03/15/18 04:44 RDW 15.0 % (13.2-15.2) 03/15/18 04:44 Plt Count 70 K/mm3 (140-440) L 03/15/18 04:44 Eos % (Auto) Forepart Rounder 03/09/18 07:00 Add Manual Diff Complete 03/15/18 04:44 Total Counted 100 03/15/18 04:44 Seg Neutrophils % Forepart Rounder 03/15/18 04:44 Seg Neuts % (Manual) 91.0 % (40.0-70.0) H 03/15/18 04:44 Band Neutrophils % 0 % 03/15/18 04:44 Lymphocytes % (Manual) 6.0 % (13.4-35.0) L 03/15/18 04:44 Reactive Lymphs % (Man) 1.0 % 03/15/18 04:44 Monocytes % (Manual) 1.0 % (0.0-7.3) 03/15/18 04:44 Eosinophils % (Manual) 0 % (0.0-4.3) 03/15/18 04:44 Basophils % (Manual) 0 % (0.0-1.8) 03/15/18 04:44 Metamyelocytes % 1.0 % 03/15/18 04:44 Myelocytes % 0 % 03/15/18 04:44 Promyelocytes % 0 % 03/15/18 04:44 Blast Cells % 0 % 03/15/18 04:44 Nucleated RBC % Not Reportable 03/15/18 04:44 Seg Neutrophils # Man 23.7 K/mm3 (1.8-7.7) H 03/15/18 04:44 Band Neutrophils # 0.0 K/mm3 03/15/18 04:44 Abs Lymphs (Manual) 779 cells/uL (850-3900) L 03/10/18 18:15 Lymphocytes # (Manual) 1.6 K/mm3 (1.2-5.4) 03/15/18 04:44 Abs React Lymphs (Man) 0.3 K/mm3 03/15/18 04:44 Monocytes # (Manual) 0.3 K/mm3 (0.0-0.8) 03/15/18 04:44 Eosinophils # (Manual) 0.0 K/mm3 (0.0-0.4) 03/15/18 04:44 Basophils # (Manual) 0.0 K/mm3 (0.0-0.1) 03/15/18 04:44 Metamyelocytes # 0.3 K/mm3 03/15/18 04:44 Myelocytes # 0.0 K/mm3 03/15/18 04:44 Promyelocytes # 0.0 K/mm3 03/15/18 04:44 Blast Cells # 0.0 K/mm3 03/15/18 04:44 Pathologist Review 03/12/18 06:29 WBC Morphology Not Reportable 03/15/18 04:44 Hypersegmented Neuts Not Reportable 03/15/18 04:44 Hyposegmented Neuts Not Reportable 03/15/18 04:44 Hypogranular Neuts Not Reportable 03/15/18 04:44 Smudge Cells Not Reportable 03/15/18 04:44 Toxic Granulation Not Reportable 03/15/18 04:44 Toxic Vacuolation Not Reportable 03/15/18 04:44 Dohle Bodies Not Reportable 03/15/18 04:44 Pelger-Huet Anomaly Not Reportable 03/15/18 04:44 Kamar Rods Not Reportable 03/15/18 04:44 Platelet Estimate Consistent w auto 03/15/18 04:44 Clumped Platelets Not Reportable 03/15/18 04:44 Plt Clumps, EDTA Not Reportable 03/15/18 04:44 Large Platelets Not Reportable 03/15/18 04:44 Giant Platelets Not Reportable 03/15/18 04:44 Platelet Satelliting Not Reportable 03/15/18 04:44 Plt Morphology Comment Not Reportable 03/15/18 04:44 RBC Morphology Not Reportable 03/15/18 04:44 Dimorphic RBCs Not Reportable 03/15/18 04:44 Polychromasia Not Reportable 03/15/18 04:44 Hypochromasia 1+ 03/15/18 04:44 Poikilocytosis Not Reportable 03/15/18 04:44 Anisocytosis 1+ 03/15/18 04:44 Microcytosis Few 03/15/18 04:44 Macrocytosis Not Reportable 03/15/18 04:44 Spherocytes Not Reportable 03/15/18 04:44 Pappenheimer Bodies Not Reportable 03/15/18 04:44 Sickle Cells Not Reportable 03/15/18 04:44 Target Cells Not Reportable 03/15/18 04:44 Tear Drop Cells Not Reportable 03/15/18 04:44 Ovalocytes Not Reportable 03/15/18 04:44 Stomatocytes Rare 03/14/18 06:00 Helmet Cells Not Reportable 03/15/18 04:44 [place] Bodies Not Reportable 03/15/18 04:44 Valier Rings Not Reportable 03/15/18 04:44 Lyssa Cells Not Reportable 03/15/18 04:44 Bite Cells Not Reportable 03/15/18 04:44 Crenated Cell Not Reportable 03/15/18 04:44 Elliptocytes Not Reportable 03/15/18 04:44 Acanthocytes (Spur) Not Reportable 03/15/18 04:44 Rouleaux Not Reportable 03/15/18 04:44 Hemoglobin C Crystals Not Reportable 03/15/18 04:44 Schistocytes Not Reportable 03/15/18 04:44 Malaria parasites Not Reportable 03/15/18 04:44 Jose Bodies Not Reportable 03/15/18 04:44 Hem Pathologist Commnt No 03/15/18 04:44 PT 17.2 Sec. (12.2-14.9) H 03/10/18 18:15 INR 1.36 (0.87-1.13) H 03/10/18 18:15 APTT 38.5 Sec. (24.2-36.6) H 03/10/18 18:15 Fibrinogen 852 mg/dl (211-480) H 03/10/18 18:15 POC ABG pH 7.355 (7.35-7.45) 03/15/18 04:53 POC ABG pCO2 59.0 (35-45) H 03/15/18 04:53 POC ABG pO2 112 (80-105) H 03/15/18 04:53 POC ABG HCO3 32.9 03/15/18 04:53 POC ABG Total CO2 35 03/15/18 04:53 POC ABG O2 Sat 98 03/15/18 04:53 POC ABG Base Excess 7 03/15/18 04:53 VBG pH 7.297 (7.320-7.420) L 03/09/18 07:00 FiO2 50 % 03/15/18 04:53 Sodium 155 mmol/L (137-145) H 03/15/18 04:44 Potassium 4.9 mmol/L (3.6-5.0) 03/15/18 04:44 Chloride 114.3 mmol/L (98-107) H 03/15/18 04:44 Carbon Dioxide 31 mmol/L (22-30) H 03/15/18 04:44 Anion Gap 15 mmol/L 03/15/18 04:44 BUN 51 mg/dL (9-20) H 03/15/18 04:44 Creatinine 1.0 mg/dL (0.8-1.5) 03/15/18 04:44 Estimated GFR > 60 ml/min 03/15/18 04:44 BUN/Creatinine Ratio 51 % 03/15/18 04:44 Glucose 173 mg/dL (75-100) H 03/15/18 04:44 POC Glucose 138 (70-105) H 03/15/18 17:25 Osmolality 256 Mosm/kg 03/14/18 07:00 Lactic Acid 4.10 mmol/L (0.7-2.0) H* 03/10/18 01:00 Calcium 8.9 mg/dL (8.4-10.2) 03/15/18 04:44 Phosphorus 2.80 mg/dL (2.5-4.5) 03/15/18 04:44 Magnesium 2.80 mg/dL (1.7-2.3) H 03/15/18 04:44 Iron 42 ug/dL (49-181) L 03/14/18 07:00 TIBC 262 mcg/dL (250-450) 03/14/18 07:00 Ferritin 532.4 ng/mL (13.0-400.0) H 03/14/18 07:00 Total Bilirubin 2.30 mg/dL (0.1-1.2) H 03/12/18 06:29 Direct Bilirubin 1.5 mg/dL (0-0.2) H 03/12/18 06:29 Indirect Bilirubin 0.8 mg/dL 03/12/18 06:29 AST 33 units/L (5-40) 03/12/18 06:29 ALT 48 units/L (7-56) 03/12/18 06:29 Alkaline Phosphatase 111 units/L (35-129) 03/12/18 06:29 Lactate Dehydrogenase 338 units/L (91-180) H 03/10/18 11:16 Total Creatine Kinase 17 units/L (55-170) L 03/14/18 06:00 NT-Pro-B Natriuret Pep 44554 pg/mL (0-450) H 03/10/18 11:16 Total Protein 6.2 g/dL (6.3-8.2) L 03/12/18 06:29 Albumin 3.1 g/dL (3.9-5) L 03/12/18 06:29 Albumin/Globulin Ratio 1.0 % 03/12/18 06:29 Triglycerides 532 mg/dL (2-149) H 03/14/18 07:00 Vitamin B12 1825 pg/mL (211-911) H 03/14/18 07:00 Folate 6.29 ng/mL (7.3-26.0) L 03/14/18 07:00 Urine Color Red (Yellow) 03/10/18 06:00 Urine Turbidity Cloudy (Clear) 03/10/18 06:00 Urine pH 5.0 (5.0-7.0) 03/10/18 06:00 Ur Specific [place] 1.009 (1.003-1.030) 03/10/18 06:00 Urine Protein 100 mg/dl mg/dL (Negative) 03/10/18 06:00 Urine Glucose (UA) Neg mg/dL (Negative) 03/10/18 06:00 Urine Ketones Neg mg/dL (Negative) 03/10/18 06:00 Urine Blood Lg (Negative) 03/10/18 06:00 Urine Nitrite Neg (Negative) 03/10/18 06:00 Urine Bilirubin Neg (Negative) 03/10/18 06:00 Urine Urobilinogen < 2.0 mg/dL (<2.0) 03/10/18 06:00 Ur Leukocyte Esterase Neg (Negative) 03/10/18 06:00 Urine WBC (Auto) 32.0 /HPF (0.0-6.0) H 03/10/18 06:00 Urine RBC (Auto) > 182.0 /HPF (0.0-6.0) 03/10/18 06:00 U Epithel Cells (Auto) 5.0 /HPF (0-13.0) 03/09/18 14:39 Urine Bacteria (Auto) 2+ /HPF (Negative) 03/10/18 06:00 Urine WBC Clumps Few /HPF 03/09/18 14:39 Amorphous Crystals 3+ 03/10/18 06:00 Granular Casts 29 /LPF 03/10/18 06:00 Urine Creatinine 210.7 mg/dL (0.1-20.0) H 03/09/18 14:39 Protein/Creatinin Ratio 3.89 03/09/18 14:39 Urine Sodium 81 mmol/L 03/14/18 18:50 Urine Total Protein 820 mg/dL (5-11.8) H 03/09/18 14:39 FELICIA Screen Negative (Negative) 03/10/18 11:16 Proteinase 3 (PR3) Ab <1.0 AI (<1.0) 03/10/18 11:16 Myeloperoxidase Ab <1.0 AI (<1.0) 03/10/18 11:16 Complement C3 83 mg/dL (82-185) 03/10/18 11:16 Complement C4 30 mg/dL (15-53) 03/10/18 11:16 Lymph Enumerat CD4/CD8 0.56 (0.86-5.00) L 03/10/18 18:15 % CD3 Cells 67 % (57-85) 03/10/18 18:15 Absolute CD3 Count 524 cells/uL (840-3060) L 03/10/18 18:15 % CD4 Cells 24 % (30-61) L 03/10/18 18:15 Absolute CD4 Count 194 cells/uL (490-1740) L 03/10/18 18:15 % CD8 Cells 43 % (12-42) H 03/10/18 18:15 Absolute CD8 Count 344 cells/uL (180-1170) 03/10/18 18:15 % CD19 Cells 25 % (6-29) 03/10/18 18:15 Absolute CD19 Count 188 cells/uL (110-660) 03/10/18 18:15 Hepatitis A IgM Ab Non-reactive (NonReactive) 03/09/18 20:39 Hep Bs Antigen Non-reactive (Negative) 03/09/18 20:39 Hep B Core IgM Ab Non-reactive (NonReactive) 03/09/18 20:39 Hepatitis C Antibody Non-reactive (NonReactive) 03/09/18 20:39 HIV-1 RNA PCR copies/ml 68669 Copies/mL H 03/10/18 18:15 HIV-1 RNA (PCR) log 4.71 Log cps/mL H 03/10/18 18:15 HIV 1&2 Antibody Rapid Reactive (Non React) 03/09/18 20:39 HIV P24 Antigen Non react (Non React) 03/09/18 20:39 Influenza A (Rapid) Negative (Negative) 03/09/18 Unknown Influenza B (Rapid) Negative (Negative) 03/09/18 Unknown Schistocytes Smear Rare 03/10/18 11:16 Blood Type O POSITIVE 03/09/18 12:36 Antibody Screen Negative 03/09/18 12:36 Nutrition/Malnutrition Assess - Dietary Evaluation Nutrition/Malnutrition Findings: Nutrition Notes Start: 03/12/18 12:51 Freq: Status: Active Protocol: Document 03/14/18 15:39 RM (Rec: 03/14/18 16:04 [id number]) Nutrition Notes Initial or Follow up Reassessment Current Diagnoses Acute Kidney Injury Sepsis Respiratory Failure Other Pertinent Diagnosis HIV Current Diet Osmolite 1.5 at 60 ml/hr Labs/Tests Na 156 (trending up) Medications Lasix, propofol 21-27 ml/hr Height 5 ft 11 in Weight 90.7 kg [place] Body Weight (lbs) 172.0 BMI 27.8 Subjective/Other Information Observed Osmolite 1.5 infusing at 60 ml/hr. MD wants water flush to be increased to 250 mls to address hypernatremia. Pt tolerating TF per nurse. Percent of energy/protein needs met: 96%/83% Burn Absent Trauma Absent #2 Nutrition Diagnoses Inadequate oral intake Diagnosis Progress(for reassessment Continues documentation) Is patient on ventilator? Yes Is Patient Ambulatory and/or Out of Bed No REE-([facility]-confined to bed) 0115.128 Calculation Used for Recommendations [facility] Additional Notes Protein needs are 109-181g (1. 2-2g/kg) Fluid needs are 1ml/kcal Nutrition Intervention Nutrition Support: Osmolite 1.5 at 60ml/hr Water flush of 250 mls q 4 hrs until hypernatremia resolves. Water flush of 200 mls q 4 hrs after hypernatremia resolves. Kcal 2,160 Protein (gm) 90 Fluid (mL) 1,097 Goal #1 Continue to meet at least 80% of kcal and protein needs Goal #2 Na WNL Anticipated Discharge Needs: Unable to determine at this time Follow-Up By: 03/16/18 Additional Comments Follow for TF tolerance, Na lab
[2018-03-16] MEDS: fentaNYL DRIP Premix 2,000 MCG/100 ML BAG IV SCH ×5 (00:27→20:51)
[2018-03-16] MEDS: HumaLOG SUB-Q SCH ×4 (00:27→17:20)
[2018-03-16] MEDS: ATIVAN IV PRN ×6 (02:23→19:55)
[2018-03-16] MEDS: D5W 1,000 ML IV SCH ×2 (02:24→17:18)
[2018-03-16] MEDS: DIPRIVAN 10 MG/ML 1,000 MG/100 ML BOTTLE IV SCH ×2 (04:39→18:39)
[2018-03-16 05:09] LABS: Hematocrit 32.5 % (35.5-45.6); Hemoglobin 10.3 gm/dl (11.8-15.2); Mean Corpuscular HGB Conc 32 % (32-34); Mean Corpuscular Volume 89 fl (84-94); Red Blood Count 3.65 M/mm3 (3.65-5.03)
[2018-03-16 05:11] LABS: Platelet Count 88 K/mm3 (140-440)
[2018-03-16 05:28] LABS: BUN/Creatinine Ratio 46; Blood Urea Nitrogen 41 mg/dL (9-20); Calcium 8.6 mg/dL (8.4-10.2); Hemolysis Index 25
--- NOTE | 2018-03-16 06:07 | XRay Report ---
FINAL REPORT PROCEDURE: XR CHEST 1V AP TECHNIQUE: Chest radiograph anteroposterior view. CPT 03666 HISTORY: Hypoxemia COMPARISON: 03/15/2017 FINDINGS: Heart: The heart size is normal. Mediastinum/Vessels: Normal. Lungs/Pleural space: Right lung is clear and expanded. There are infiltrates versus effusion at the l eft lung base. There is no pneumothorax.. Bony thorax: No acute osseous abnormality. Life support devices: Endotracheal tube is in the proximal trachea. NG tube is in the stomach.. IMPRESSION: The heart size is normal. Right lung is clear and expanded. There are infiltrates versus effusion at the left lung base. There is no pneumothorax.. Endotracheal tube is in the proximal trachea. NG tube is in the stomach .
[2018-03-16 07:28] LABS: HIV-1 Antibody Differentiation SEE SCANNED RESULT; HIV-2 Antibody Differentiation SEE SCANNED RESULT
[2018-03-16 08:21] LABS: Basophils % (Manual) 0 % (0.0-1.8); Eosinophils % (Manual) 0 % (0.0-4.3); Monocytes % (Manual) 0 % (0.0-7.3); Total Cells Counted 100
[2018-03-16 08:23] LABS: Anisocytosis 1+; Ovalocytes Rare; Platelet Estimate Consistent w Auto; Poikilocytosis 1+; Target Cells Rare
--- NOTE | 2018-03-16 08:23 | Hem/Onc Progress Note ---
Assessment and Plan 1. Thrombocytopenia. I reviewed the peripheral smear. I spoke to the dental laboratory technician. The laboratory report mentioned no schistocytes. When I reviewed the smear it did not have any schistocytes. Creatinine is elevated. The patient is short of breath. 2. At this time, differential includes some idiopathic thrombocytopenic purpura. Other differentials include immunosuppression related or medication or infection related. The patient's PT, PTT is elevated, but fibrinogen is not low. At admission, chest x-ray was clear and now it has worsened. There is a clinical suspicion of this being infection or disseminated intravascular coagulation or acute respiratory distress syndrome. 3. Renal impairment. 4. Decreased urine output. 5. h/o Shortness of breath. 6. Human immunodeficiency virus, pt was on treatment. 7. discussed with IDT. 8. steroid trial. 9. BNP was elevated. 10. I ordered [id number]. 11. Abnormal liver function tests. 12. Being treated for Haemophilus influenzae. 13. CD4 count 400. I will follow the patient during inpatient stay. 03/11/2018 - d/w dr garrison - low EF pt is on dexa 40 daily s/p plt transfusion no active bleeding 03/12/2018 s/p plt transfusion on dexa intubated d/w lab reg [id number] HIV d/w dr ojeda 03/15 - low folate plt better once plt >100 - will look into altering steroids as per nurse - good urine OP 03/16/2017 - pt plt are better - will follow off pressors - Patient Problems (1) Thrombocytopenia Current Visit: Yes Status: Acute Subjective Date of service: 03/16/18 Principal diagnosis: low plt Interval history: pt off pressors d/w mother and RN Objective - Exam Narrative Exam: on vent sedated - Constitutional Vitals: Last Vital Signs Temp 98.4 F 03/16/18 07:50 Pulse 65 03/16/18 08:15 Resp 19 03/16/18 08:15 BP 108/66 03/16/18 08:15 Pulse Ox 97 03/16/18 08:15 General appearance: no acute distress Performance status: 4-completely disabled - EENT Lymph node exam: negative cervical, negative supraclavicular - Respiratory Respiratory: bilateral: diminished - Cardiovascular Heart Sounds: Present: S1 & S2 Extremities: No edema - Gastrointestinal General gastrointestinal: Present: soft Rectal Exam: deferred - Genitourinary Male genitourinary: Present: deferred - Integumentary Integumentary: warm - Neurologic Neurologic: other (sedated) - Labs Lab Results: Laboratory Results - last 24 hr 03/09/18 03/10/18 03/10/18 20:39 11:16 18:15 WBC RBC Hgb Hct MCV MCH MCHC RDW Plt Count Add Manual Diff Total Counted Seg Neutrophils % Seg Neuts % (Manual) Band Neutrophils % Lymphocytes % (Manual) Reactive Lymphs % (Man) Monocytes % (Manual) Eosinophils % (Manual) Basophils % (Manual) Metamyelocytes % Myelocytes % Promyelocytes % Blast Cells % Nucleated RBC % Seg Neutrophils # Man Band Neutrophils # Abs Lymphs (Manual) 779 L Lymphocytes # (Manual) Abs React Lymphs (Man) Monocytes # (Manual) Eosinophils # (Manual) Basophils # (Manual) Metamyelocytes # Myelocytes # Promyelocytes # Blast Cells # Pathologist Review WBC Morphology Hypersegmented Neuts Hyposegmented Neuts Hypogranular Neuts Smudge Cells Toxic Granulation Toxic Vacuolation Dohle Bodies Pelger-Huet Anomaly Kamar Rods Platelet Estimate Clumped Platelets Plt Clumps, EDTA Large Platelets Giant Platelets Platelet Satelliting Plt Morphology Comment RBC Morphology Dimorphic RBCs Polychromasia Hypochromasia Poikilocytosis Anisocytosis Microcytosis Macrocytosis Spherocytes Pappenheimer Bodies Sickle Cells Target Cells Tear Drop Cells Ovalocytes Helmet Cells Barnes-[place] Bodies [place] Rings Stebbins Cells Bite Cells Crenated Cell Elliptocytes Acanthocytes (Spur) Rouleaux Hemoglobin C Crystals Schistocytes Malaria parasites Jose Bodies Hem Pathologist Commnt POC ABG pH POC ABG pCO2 POC ABG pO2 POC ABG HCO3 POC ABG Total CO2 POC ABG O2 Sat POC ABG Base Excess FiO2 Sodium Potassium Chloride Carbon Dioxide Anion Gap BUN Creatinine Estimated GFR BUN/Creatinine Ratio Glucose POC Glucose Calcium Phosphorus Magnesium Triglycerides Glomerular Base Mem IgG See scanned result Lymph Enumerat CD4/CD8 0.56 L % CD3 Cells 67 Absolute CD3 Count 524 L % CD4 Cells 24 L Absolute CD4 Count 194 L % CD8 Cells 43 H Absolute CD8 Count 344 % CD19 Cells 25 Absolute CD19 Count 188 HIV-1 Antibody See scanned result HIV-1 RNA PCR copies/ml HIV-1 RNA (PCR) log HIV-2 Ab (Immunoblot) See scanned result 01/05/2403/12/18 03/15/18 18:15 06:29 04:44 WBC RBC Hgb Hct MCV MCH MCHC RDW Plt Count Add Manual Diff Complete Total Counted 100 Seg Neutrophils % Seg Neuts % (Manual) 91.0 H Band Neutrophils % 0 Lymphocytes % (Manual) 6.0 L Reactive Lymphs % (Man) 1.0 Monocytes % (Manual) 1.0 Eosinophils % (Manual) 0 Basophils % (Manual) 0 Metamyelocytes % 1.0 Myelocytes % 0 Promyelocytes % 0 Blast Cells % 0 Nucleated RBC % Not Reportable Seg Neutrophils # Man 23.7 H Band Neutrophils # 0.0 Abs Lymphs (Manual) Lymphocytes # (Manual) 1.6 Abs React Lymphs (Man) 0.3 Monocytes # (Manual) 0.3 Eosinophils # (Manual) 0.0 Basophils # (Manual) 0.0 Metamyelocytes # 0.3 Myelocytes # 0.0 Promyelocytes # 0.0 Blast Cells # 0.0 Pathologist Review WBC Morphology Not Reportable Hypersegmented Neuts Not Reportable Hyposegmented Neuts Not Reportable Hypogranular Neuts Not Reportable Smudge Cells Not Reportable Toxic Granulation Not Reportable Toxic Vacuolation Not Reportable Dohle Bodies Not Reportable Pelger-Huet Anomaly Not Reportable Kamar Rods Not Reportable Platelet Estimate Consistent w auto Clumped Platelets Not Reportable Plt Clumps, EDTA Not Reportable Large Platelets Not Reportable Giant Platelets Not Reportable Platelet Satelliting Not Reportable Plt Morphology Comment Not Reportable RBC Morphology Not Reportable Dimorphic RBCs Not Reportable Polychromasia Not Reportable Hypochromasia 1+ Poikilocytosis Not Reportable Anisocytosis 1+ Microcytosis Few Macrocytosis Not Reportable Spherocytes Not Reportable Pappenheimer Bodies Not Reportable Sickle Cells Not Reportable Target Cells Not Reportable Tear Drop Cells Not Reportable Ovalocytes Not Reportable Helmet Cells Not Reportable Barnes-[place] Bodies Not Reportable [place] Rings Not Reportable Lyssa Cells Not Reportable Bite Cells Not Reportable Crenated Cell Not Reportable Elliptocytes Not Reportable Acanthocytes (Spur) Not Reportable Rouleaux Not Reportable Hemoglobin C Crystals Not Reportable Schistocytes Not Reportable Malaria parasites Not Reportable Jose Bodies Not Reportable Hem Pathologist Commnt No POC ABG pH POC ABG pCO2 POC ABG pO2 POC ABG HCO3 POC ABG Total CO2 POC ABG O2 Sat POC ABG Base Excess FiO2 Sodium Potassium Chloride Carbon Dioxide Anion Gap BUN Creatinine Estimated GFR BUN/Creatinine Ratio Glucose POC Glucose Calcium Phosphorus Magnesium Triglycerides Glomerular Base Mem IgG Lymph Enumerat CD4/CD8 % CD3 Cells Absolute CD3 Count % CD4 Cells Absolute CD4 Count % CD8 Cells Absolute CD8 Count % CD19 Cells Absolute CD19 Count HIV-1 Antibody HIV-1 RNA PCR copies/ml 58745 H HIV-1 RNA (PCR) log 4.71 H HIV-2 Ab (Immunoblot) 03/15/18 03/15/18 03/15/18 04:44 12:22 17:25 WBC RBC Hgb Hct MCV MCH MCHC RDW Plt Count Add Manual Diff Total Counted Seg Neutrophils % Seg Neuts % (Manual) Band Neutrophils % Lymphocytes % (Manual) Reactive Lymphs % (Man) Monocytes % (Manual) Eosinophils % (Manual) Basophils % (Manual) Metamyelocytes % Myelocytes % Promyelocytes % Blast Cells % Nucleated RBC % Seg Neutrophils # Man Band Neutrophils # Abs Lymphs (Manual) Lymphocytes # (Manual) Abs React Lymphs (Man) Monocytes # (Manual) Eosinophils # (Manual) Basophils # (Manual) Metamyelocytes # Myelocytes # Promyelocytes # Blast Cells # Pathologist Review WBC Morphology Hypersegmented Neuts Hyposegmented Neuts Hypogranular Neuts Smudge Cells Toxic Granulation Toxic Vacuolation Dohle Bodies Pelger-Huet Anomaly Kamar Rods Platelet Estimate Clumped Platelets Plt Clumps, EDTA Large Platelets Giant Platelets Platelet Satelliting Plt Morphology Comment RBC Morphology Dimorphic RBCs Polychromasia Hypochromasia Poikilocytosis Anisocytosis Microcytosis Macrocytosis Spherocytes Pappenheimer Bodies Sickle Cells Target Cells Tear Drop Cells Ovalocytes Helmet Cells Barnes-[place] Bodies [place] Rings Lyssa Cells Bite Cells Crenated Cell Elliptocytes Acanthocytes (Spur) Rouleaux Hemoglobin C Crystals Schistocytes Malaria parasites Jose Bodies Hem Pathologist Commnt POC ABG pH POC ABG pCO2 POC ABG pO2 POC ABG HCO3 POC ABG Total CO2 POC ABG O2 Sat POC ABG Base Excess FiO2 Sodium Potassium Chloride Carbon Dioxide Anion Gap BUN Creatinine Estimated GFR BUN/Creatinine Ratio Glucose POC Glucose 101 138 H Calcium Phosphorus Magnesium 2.80 H Triglycerides Glomerular Base Mem IgG Lymph Enumerat CD4/CD8 % CD3 Cells Absolute CD3 Count % CD4 Cells Absolute CD4 Count % CD8 Cells Absolute CD8 Count % CD19 Cells Absolute CD19 Count HIV-1 Antibody HIV-1 RNA PCR copies/ml HIV-1 RNA (PCR) log HIV-2 Ab (Immunoblot) 03/15/18 03/16/18 03/16/18 23:20 03:59 05:01 WBC 21.9 H RBC 3.65 Hgb 10.3 L Hct 32.5 L MCV 89 MCH 28 MCHC 32 RDW 15.0 Plt Count 88 L Add Manual Diff Total Counted Seg Neutrophils % Bin Packer Seg Neuts % (Manual) Band Neutrophils % Lymphocytes % (Manual) Reactive Lymphs % (Man) Monocytes % (Manual) Eosinophils % (Manual) Basophils % (Manual) Metamyelocytes % Myelocytes % Promyelocytes % Blast Cells % Nucleated RBC % Seg Neutrophils # Man Band Neutrophils # Abs Lymphs (Manual) Lymphocytes # (Manual) Abs React Lymphs (Man) Monocytes # (Manual) Eosinophils # (Manual) Basophils # (Manual) Metamyelocytes # Myelocytes # Promyelocytes # Blast Cells # Pathologist Review WBC Morphology Hypersegmented Neuts Hyposegmented Neuts Hypogranular Neuts Smudge Cells Toxic Granulation Toxic Vacuolation Dohle Bodies Pelger-Huet Anomaly Kamar Rods Platelet Estimate Clumped Platelets Plt Clumps, EDTA Large Platelets Giant Platelets Platelet Satelliting Plt Morphology Comment RBC Morphology Dimorphic RBCs Polychromasia Hypochromasia Poikilocytosis Anisocytosis Microcytosis Macrocytosis Spherocytes Pappenheimer Bodies Sickle Cells Target Cells Tear Drop Cells Ovalocytes Helmet Cells Barnes-[place] Bodies [place] Rings Lyssa Cells Bite Cells Crenated Cell Elliptocytes Acanthocytes (Spur) Rouleaux Hemoglobin C Crystals Schistocytes Malaria parasites Jose Bodies Hem Pathologist Commnt POC ABG pH 7.397 POC ABG pCO2 46.6 H POC ABG pO2 50 L POC ABG HCO3 28.7 POC ABG Total CO2 30 POC ABG O2 Sat 84 POC ABG Base Excess 4 FiO2 50 Sodium Potassium Chloride Carbon Dioxide Anion Gap BUN Creatinine Estimated GFR BUN/Creatinine Ratio Glucose POC Glucose 182 H Calcium Phosphorus Magnesium Triglycerides Glomerular Base Mem IgG Lymph Enumerat CD4/CD8 % CD3 Cells Absolute CD3 Count % CD4 Cells Absolute CD4 Count % CD8 Cells Absolute CD8 Count % CD19 Cells Absolute CD19 Count HIV-1 Antibody HIV-1 RNA PCR copies/ml HIV-1 RNA (PCR) log HIV-2 Ab (Immunoblot) 03/16/18 03/16/18 03/16/18 05:01 05:01 05:29 WBC RBC Hgb Hct MCV MCH MCHC RDW Plt Count Add Manual Diff Total Counted Seg Neutrophils % Seg Neuts % (Manual) Band Neutrophils % Lymphocytes % (Manual) Reactive Lymphs % (Man) Monocytes % (Manual) Eosinophils % (Manual) Basophils % (Manual) Metamyelocytes % Myelocytes % Promyelocytes % Blast Cells % Nucleated RBC % Seg Neutrophils # Man Band Neutrophils # Abs Lymphs (Manual) Lymphocytes # (Manual) Abs React Lymphs (Man) Monocytes # (Manual) Eosinophils # (Manual) Basophils # (Manual) Metamyelocytes # Myelocytes # Promyelocytes # Blast Cells # Pathologist Review WBC Morphology Hypersegmented Neuts Hyposegmented Neuts Hypogranular Neuts Smudge Cells Toxic Granulation Toxic Vacuolation Dohle Bodies Pelger-Huet Anomaly Kamar Rods Platelet Estimate Clumped Platelets Plt Clumps, EDTA Large Platelets Giant Platelets Platelet Satelliting Plt Morphology Comment RBC Morphology Dimorphic RBCs Polychromasia Hypochromasia Poikilocytosis Anisocytosis Microcytosis Macrocytosis Spherocytes Pappenheimer Bodies Sickle Cells Target Cells Tear Drop Cells Ovalocytes Helmet Cells Barnes-[place] Bodies [place] Rings Lyssa Cells Bite Cells Crenated Cell Elliptocytes Acanthocytes (Spur) Rouleaux Hemoglobin C Crystals Schistocytes Malaria parasites Jose Bodies Hem Pathologist Commnt POC ABG pH POC ABG pCO2 POC ABG pO2 POC ABG HCO3 POC ABG Total CO2 POC ABG O2 Sat POC ABG Base Excess FiO2 Sodium 148 H Potassium 5.7 H Chloride 112.1 H Carbon Dioxide 27 Anion Gap 15 BUN 41 H Creatinine 0.9 Estimated GFR > 60 BUN/Creatinine Ratio 46 Glucose 234 H POC Glucose 257 H Calcium 8.6 Phosphorus 3.00 Magnesium Triglycerides 212 H Glomerular Base Mem IgG Lymph Enumerat CD4/CD8 % CD3 Cells Absolute CD3 Count % CD4 Cells Absolute CD4 Count % CD8 Cells Absolute CD8 Count % CD19 Cells Absolute CD19 Count HIV-1 Antibody HIV-1 RNA PCR copies/ml HIV-1 RNA (PCR) log HIV-2 Ab (Immunoblot) Medications & Allergies - Medications Allergies/Adverse Reactions: Allergies clindamycin Allergy (Verified 03/09/18 06:43) Swelling Home Medications: Home Medications Medication Instructions Recorded Confirmed Last Taken Type No Known Home Medications [No 03/09/18 03/09/18 Unknown History Reported Home Medications] Active Medications: Generic Name Dose Route Start Last Admin Trade Name Freq PRN Reason Stop Dose Admin Lipase/Protease/Amylase 1 each 03/14/18 16:04 [place] 10,500 Unit FEEDTUBE PRN PRN For Clogged Feeding Tube Atovaquone 1,500 mg 03/11/18 20:00 03/15/18 11:40 Mepron PO 1,500 mg QDAY LIU Administration Dextrose 50 ml 03/09/18 16:15 D50w (25gm) Syringe IV PRN PRN HYPOGLYCEMIA Fentanyl 50 mcg 03/14/18 09:44 03/15/18 14:19 Sublimaze IV 50 mcg Q2H PRN Administration Pain , Severe (7-10) Folic Acid 1 mg 03/15/18 10:00 03/15/18 11:40 Folvite PO 1 mg QDAY LIU Administration Haloperidol Lactate 5 mg 03/12/18 02:15 03/15/18 14:10 Haldol IV 5 mg Q6H PRN Administration Agitation Hydrophilic Ointment 1 applic 03/12/18 07:47 03/13/18 11:34 Vaseline Lip Therapy TP 1 applic Q2HR PRN Administration Dry Lips Norepinephrine 4 mg in 250 mls @ 7.5 mls/hr 03/09/18 23:45 03/12/18 13:57 Levophed Drip 4 Mg/Ns 250 Ml IV 0 mcg/min TITR LIU 0 mls/hr Titration Protocol 2 MCG/MIN Vasopressin 20 unit/ Sodium 101 mls @ 9.09 mls/hr 03/10/18 11:00 03/14/18 10:30 Chloride IV 0 units/min TITR LIU 0 mls/hr Titration Protocol 0.03 UNITS/MIN Dexamethasone 20 mg/ Sodium 55 mls @ 100 mls/hr 03/11/18 11:30 03/15/18 22:37 Chloride IV 100 mls/hr Q12HR LIU Administration Propofol 1,000 mg in 100 mls @ 2.721 mls/hr 03/12/18 08:00 03/16/18 04:39 Diprivan 10 Mg/Ml IV 20 mcg/kg/min TITR LIU 10.884 mls/hr Administration Protocol 5 MCG/KG/MIN Cefepime HCl 2 gm in 100 mls @ 200 mls/hr 03/13/18 10:00 03/15/18 22:37 Maxipime/Ns 2 Gm/100 Ml IV 200 mls/hr Q12HR LIU Administration Fentanyl Citrate 2,000 mcg in 100 mls @ 4.535 mls/hr 03/14/18 10:00 03/16/18 06:06 Fentanyl Drip Premix IV 4 mcg/kg/hr TITR LIU 18.14 mls/hr Administration Protocol 1 MCG/KG/HR Dextrose 1,000 mls @ 75 mls/hr 03/14/18 11:00 03/16/18 02:24 D5w IV 50 mls/hr DIRECT LIU Administration Midazolam HCl 100 mg/ Sodium 100 mls @ 2 mls/hr 03/15/18 19:00 Chloride IV TITR LIU Protocol 2 MG/HR Insulin Human Lispro 0 unit 03/14/18 12:00 03/16/18 06:06 Humalog SUB-Q 6 unit Q6HR LIU Administration Protocol Lansoprazole 30 mg 03/14/18 10:00 03/15/18 11:41 Prevacid Solutab FEEDTUBE 30 mg QDAY LIU Administration Lorazepam 2 mg 03/15/18 17:14 03/16/18 06:08 Ativan IV 2 mg Q3H PRN Administration Agitation Midazolam HCl 2 mg 03/15/18 18:03 Versed IV Q10MIN PRN Sedation Morphine Sulfate 2 mg 03/14/18 05:25 03/14/18 07:49 Morphine IV 2 mg Q4H PRN Administration Pain, Moderate (4-6) Multi-Ingred Cream/Lotion/Oil/Oint 1 applic 03/12/18 07:47 Artificial Tears Ophth Oint OU Q4HR PRN Dry Eye(s) Ondansetron HCl 4 mg 03/14/18 08:00 Zofran IV Q8H PRN Nausea And Vomiting Simple Syrup 15 ml 03/14/18 16:04 Simple Syrup FEEDTUBE PRN PRN Hypoglycemia Simple Syrup 30 ml 03/14/18 16:04 Simple Syrup FEEDTUBE PRN PRN Hypoglycemia Sodium Chloride 10 ml 03/09/18 22:00 03/15/18 22:30 Sodium Chloride Flush Syringe 10 Ml IV 10 ml BID LIU Administration Sodium Chloride 10 ml 03/09/18 10:41 Sodium Chloride Flush Syringe 10 Ml IV PRN PRN LINE FLUSH
[2018-03-16] MEDS: ZOFRAN IV SCH (08:24)
--- NOTE | 2018-03-16 08:54 | Progress Note ---
Assessment and Plan Acute respiratory failure. Aspiration pneumonia, atelectasis. CT scan revealing moderate amount of material in the trachea and main proximal bronchi on my review-not really detailed on official report. Also with left lower lobe atelectasis. Shock. Off PRESSORS KLAUDIA/sepsis. Fever still noted. Head and sinus CT scan negative, see comments regarding chest CT scan . HIV. ID following see recommendations. 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 No gross bleeding Cardiomyopathy with ejection fraction of 25% Recommendations Chest CT with aspiration like material in mayor airways, LLL atelectasis. Discussed FOB option with family, mother in agreement,consent signed PTT cuff appears to be okay, cuff pressure normal. Sedation as needed for patient comfort, adjust to RASS -1 to - 3 Maintain extubation precautions DVT prophylaxis PPI prophylaxis Adjust fentanyl , Versed drips. Propofol being weaned down due to hypertrigly ceridemia Critical care time was 31 minutes of [id number] evaluation and coordination of care Subjective Date of service: 03/16/18 Principal diagnosis: low plt Interval history: Sedated and intubated Objective Vital Signs - 12hr 03/15/18 03/15/18 03/15/18 21:00 21:13 21:15 Temperature Pulse Rate 66 66 63 Pulse Rate [ From Monitor] Respiratory 18 19 20 Rate Respiratory Rate [bodyaches ] Blood Pressure 110/59 110/59 101/56 O2 Sat by Pulse 92 94 93 Oximetry 03/15/18 03/15/18 03/15/18 21:30 21:45 22:00 Temperature Pulse Rate 65 66 62 Pulse Rate [ From Monitor] Respiratory 20 20 18 Rate Respiratory 20 Rate [bodyaches ] Blood Pressure 102/57 101/57 106/61 O2 Sat by Pulse 92 93 89 Oximetry 03/15/18 03/15/18 03/15/18 22:15 22:30 22:45 Temperature Pulse Rate 66 68 71 Pulse Rate [ From Monitor] Respiratory 16 18 11 L Rate Respiratory Rate [bodyaches ] Blood Pressure 106/54 106/53 123/64 O2 Sat by Pulse 96 96 95 Oximetry 03/15/18 03/15/18 03/15/18 23:00 23:15 23:30 Temperature Pulse Rate 74 66 68 Pulse Rate [ From Monitor] Respiratory 19 19 21 Rate Respiratory Rate [bodyaches ] Blood Pressure 110/61 119/59 125/65 O2 Sat by Pulse 93 86 92 Oximetry 03/15/18 03/15/18 03/16/18 23:40 23:45 00:00 Temperature 97.8 F Pulse Rate 70 72 68 Pulse Rate [ 70 From Monitor] Respiratory 18 20 20 Rate Respiratory Rate [bodyaches ] Blood Pressure 125/65 115/63 109/58 O2 Sat by Pulse 93 93 97 Oximetry 03/16/18 03/16/18 03/16/18 00:15 00:30 00:45 Temperature Pulse Rate 69 68 66 Pulse Rate [ From Monitor] Respiratory 21 20 22 Rate Respiratory Rate [bodyaches ] Blood Pressure 111/58 107/64 117/60 O2 Sat by Pulse 96 96 95 Oximetry 03/16/18 03/16/18 03/16/18 01:00 01:15 01:30 Temperature Pulse Rate 70 65 64 Pulse Rate [ From Monitor] Respiratory 18 19 20 Rate Respiratory Rate [bodyaches ] Blood Pressure 120/63 116/63 115/64 O2 Sat by Pulse 97 96 97 Oximetry 03/16/18 03/16/18 03/16/18 01:45 02:00 02:15 Temperature Pulse Rate 58 L 61 69 Pulse Rate [ From Monitor] Respiratory 21 20 17 Rate Respiratory Rate [bodyaches ] Blood Pressure 118/61 112/62 116/66 O2 Sat by Pulse 98 96 99 Oximetry 03/16/18 03/16/18 03/16/18 02:30 02:45 03:00 Temperature Pulse Rate 72 68 72 Pulse Rate [ From Monitor] Respiratory 18 19 21 Rate Respiratory Rate [bodyaches ] Blood Pressure 114/63 111/61 113/59 O2 Sat by Pulse 96 91 95 Oximetry 03/16/18 03/16/18 03/16/18 03:15 03:30 03:45 Temperature Pulse Rate 65 69 65 Pulse Rate [ From Monitor] Respiratory 20 18 18 Rate Respiratory Rate [bodyaches ] Blood Pressure 116/61 112/65 111/62 O2 Sat by Pulse 93 93 91 Oximetry 03/16/18 03/16/18 03/16/18 03:49 03:54 04:00 Temperature 98.9 F Pulse Rate 70 61 Pulse Rate [ 81 From Monitor] Respiratory 20 21 Rate Respiratory Rate [bodyaches ] Blood Pressure 120/63 107/59 O2 Sat by Pulse 91 94 Oximetry 03/16/18 03/16/18 03/16/18 04:15 04:30 04:45 Temperature Pulse Rate 59 L 60 58 L Pulse Rate [ From Monitor] Respiratory 15 19 20 Rate Respiratory Rate [bodyaches ] Blood Pressure 105/63 109/64 115/67 O2 Sat by Pulse 93 92 92 Oximetry 03/16/18 03/16/18 03/16/18 05:00 05:15 05:30 Temperature Pulse Rate 70 66 61 Pulse Rate [ From Monitor] Respiratory 20 19 20 Rate Respiratory Rate [bodyaches ] Blood Pressure 102/58 111/61 107/66 O2 Sat by Pulse 95 97 98 Oximetry 03/16/18 03/16/18 03/16/18 05:45 06:01 06:15 Temperature Pulse Rate 60 75 77 Pulse Rate [ From Monitor] Respiratory 19 15 10 L Rate Respiratory Rate [bodyaches ] Blood Pressure 113/69 143/68 109/66 O2 Sat by Pulse 96 94 95 Oximetry 03/16/18 03/16/18 03/16/18 06:30 06:45 07:00 Temperature Pulse Rate 71 70 71 Pulse Rate [ From Monitor] Respiratory 13 18 17 Rate Respiratory Rate [bodyaches ] Blood Pressure 119/60 117/58 118/59 O2 Sat by Pulse 95 95 97 Oximetry 03/16/18 03/16/18 03/16/18 07:15 07:30 07:45 Temperature Pulse Rate 65 63 59 L Pulse Rate [ From Monitor] Respiratory 19 19 19 Rate Respiratory Rate [bodyaches ] Blood Pressure 104/60 101/62 108/62 O2 Sat by Pulse 96 95 97 Oximetry 03/16/18 03/16/18 03/16/18 07:50 08:00 08:15 Temperature 98.4 F Pulse Rate 62 65 Pulse Rate [ From Monitor] Respiratory 17 19 Rate Respiratory Rate [bodyaches ] Blood Pressure 112/59 108/66 O2 Sat by Pulse 95 97 Oximetry 03/16/18 08:26 Temperature Pulse Rate 63 Pulse Rate [ From Monitor] Respiratory Rate Respiratory Rate [bodyaches ] Blood Pressure 116/68 O2 Sat by Pulse 97 Oximetry Eyes: non-icteric ENT: oropharynx dry, other (orally intubated and sedated) Neck: supple Effort: mildly labored Ascultation: Bilateral: clear, diminished breath sounds Percussion: Bilateral: not dull Cardiovascular: regular rate and rhythm, other (sinus tach) Gastrointestinal: normoactive bowel sounds, non-tender Integumentary: normal Extremities: no cyanosis, no edema, pink and warm Neurologic: unable to assess, other (RA SS -1) CBC and BMP: 03/18/18 04:16 03/18/18 04:16 ABG, PT/INR, D-dimer: ABG POC ABG pH 7.397 (7.35-7.45) 03/16/18 03:59 POC ABG pCO2 46.6 (35-45) H 03/16/18 03:59 POC ABG pO2 50 (80-105) L 03/16/18 03:59 POC ABG HCO3 28.7 03/16/18 03:59 POC ABG Total CO2 30 03/16/18 03:59 POC ABG O2 Sat 84 03/16/18 03:59 PT/INR, D-dimer PT 17.2 Sec. (12.2-14.9) H 03/10/18 18:15 INR 1.36 (0.87-1.13) H 03/10/18 18:15 Abnormal lab findings: Abnormal Labs 03/09/18 03/09/18 03/09/18 07:00 07:00 07:00 WBC RBC Hgb Hct RDW 15.5 H Plt Count 25 L Seg Neuts % (Manual) 90.0 H Lymphocytes % (Manual) 5.0 L Monocytes % (Manual) Seg Neutrophils # Man Abs Lymphs (Manual) Lymphocytes # (Manual) 0.4 L Monocytes # (Manual) PT 22.9 H INR 1.98 H APTT Fibrinogen POC ABG pH POC ABG pCO2 POC ABG pO2 VBG pH Sodium 135 L Potassium Chloride 90.8 L Carbon Dioxide 17 L BUN 45 H Creatinine 5.8 H Glucose 72 L POC Glucose Lactic Acid Calcium 7.6 L Phosphorus Magnesium Iron Ferritin Total Bilirubin Direct Bilirubin Alkaline Phosphatase 154 H Lactate Dehydrogenase Total Creatine Kinase NT-Pro-B Natriuret Pep Total Protein Albumin 3.6 L Triglycerides Vitamin B12 Folate Urine WBC (Auto) Urine Creatinine Urine Total Protein Complement C3 Lymph Enumerat CD4/CD8 Absolute CD3 Count % CD4 Cells Absolute CD4 Count % CD8 Cells HIV-1 RNA PCR copies/ml HIV-1 RNA (PCR) log 03/09/18 03/09/18 03/09/18 07:00 07:00 07:00 WBC RBC Hgb Hct RDW Plt Count Seg Neuts % (Manual) Lymphocytes % (Manual) Monocytes % (Manual) Seg Neutrophils # Man Abs Lymphs (Manual) Lymphocytes # (Manual) Monocytes # (Manual) PT INR APTT Fibrinogen POC ABG pH POC ABG pCO2 POC ABG pO2 VBG pH 7.297 L Sodium Potassium Chloride Carbon Dioxide BUN Creatinine Glucose POC Glucose Lactic Acid 6.80 H* Calcium Phosphorus 5.40 H Magnesium 1.20 L Iron Ferritin Total Bilirubin Direct Bilirubin Alkaline Phosphatase Lactate Dehydrogenase Total Creatine Kinase 228 H NT-Pro-B Natriuret Pep Total Protein Albumin Triglycerides Vitamin B12 Folate Urine WBC (Auto) Urine Creatinine Urine Total Protein Complement C3 Lymph Enumerat CD4/CD8 Absolute CD3 Count % CD4 Cells Absolute CD4 Count % CD8 Cells HIV-1 RNA PCR copies/ml HIV-1 RNA (PCR) log 03/09/18 03/09/18 03/09/18 09:22 12:36 14:39 WBC RBC Hgb Hct RDW Plt Count Seg Neuts % (Manual) Lymphocytes % (Manual) Monocytes % (Manual) Seg Neutrophils # Man Abs Lymphs (Manual) Lymphocytes # (Manual) Monocytes # (Manual) PT INR APTT Fibrinogen POC ABG pH POC ABG pCO2 POC ABG pO2 VBG pH Sodium Potassium Chloride Carbon Dioxide BUN Creatinine Glucose POC Glucose Lactic Acid 5.90 H* 8.30 H* Calcium Phosphorus Magnesium Iron Ferritin Total Bilirubin Direct Bilirubin Alkaline Phosphatase Lactate Dehydrogenase Total Creatine Kinase NT-Pro-B Natriuret Pep Total Protein Albumin Triglycerides Vitamin B12 Folate Urine WBC (Auto) 86.0 H Urine Creatinine Urine Total Protein Complement C3 Lymph Enumerat CD4/CD8 Absolute CD3 Count % CD4 Cells Absolute CD4 Count % CD8 Cells HIV-1 RNA PCR copies/ml HIV-1 RNA (PCR) log 03/09/18 03/09/18 03/09/18 14:39 14:39 15:12 WBC RBC Hgb Hct RDW Plt Count Seg Neuts % (Manual) Lymphocytes % (Manual) Monocytes % (Manual) Seg Neutrophils # Man Abs Lymphs (Manual) Lymphocytes # (Manual) Monocytes # (Manual) PT INR APTT Fibrinogen POC ABG pH POC ABG pCO2 POC ABG pO2 VBG pH Sodium Potassium Chloride Carbon Dioxide BUN Creatinine Glucose POC Glucose Lactic Acid 5.90 H* Calcium Phosphorus Magnesium Iron Ferritin Total Bilirubin Direct Bilirubin Alkaline Phosphatase Lactate Dehydrogenase Total Creatine Kinase NT-Pro-B Natriuret Pep Total Protein Albumin Triglycerides Vitamin B12 Folate Urine WBC (Auto) Urine Creatinine 217.1 H 210.7 H Urine Total Protein 820 H Complement C3 Lymph Enumerat CD4/CD8 Absolute CD3 Count % CD4 Cells Absolute CD4 Count % CD8 Cells HIV-1 RNA PCR copies/ml HIV-1 RNA (PCR) log 03/09/18 03/09/18 03/09/18 15:53 18:20 20:39 WBC RBC Hgb Hct RDW Plt Count Seg Neuts % (Manual) Lymphocytes % (Manual) Monocytes % (Manual) Seg Neutrophils # Man Abs Lymphs (Manual) Lymphocytes # (Manual) Monocytes # (Manual) PT INR APTT Fibrinogen POC ABG pH POC ABG pCO2 POC ABG pO2 VBG pH Sodium Potassium Chloride Carbon Dioxide BUN Creatinine Glucose POC Glucose 56 L Lactic Acid 5.10 H* 4.40 H* Calcium Phosphorus Magnesium Iron Ferritin Total Bilirubin Direct Bilirubin Alkaline Phosphatase Lactate Dehydrogenase Total Creatine Kinase NT-Pro-B Natriuret Pep Total Protein Albumin Triglycerides Vitamin B12 Folate Urine WBC (Auto) Urine Creatinine Urine Total Protein Complement C3 Lymph Enumerat CD4/CD8 Absolute CD3 Count % CD4 Cells Absolute CD4 Count % CD8 Cells HIV-1 RNA PCR copies/ml HIV-1 RNA (PCR) log 03/09/18 03/09/18 03/09/18 20:39 21:33 23:08 WBC RBC Hgb Hct RDW Plt Count Seg Neuts % (Manual) Lymphocytes % (Manual) Monocytes % (Manual) Seg Neutrophils # Man Abs Lymphs (Manual) Lymphocytes # (Manual) Monocytes # (Manual) PT INR APTT Fibrinogen POC ABG pH POC ABG pCO2 POC ABG pO2 VBG pH Sodium Potassium Chloride Carbon Dioxide BUN Creatinine Glucose POC Glucose Lactic Acid 4.90 H* 4.10 H* Calcium Phosphorus Magnesium Iron Ferritin Total Bilirubin Direct Bilirubin Alkaline Phosphatase Lactate Dehydrogenase Total Creatine Kinase NT-Pro-B Natriuret Pep Total Protein Albumin Triglycerides Vitamin B12 Folate Urine WBC (Auto) Urine Creatinine Urine Total Protein Complement C3 77 L Lymph Enumerat CD4/CD8 Absolute CD3 Count % CD4 Cells Absolute CD4 Count % CD8 Cells HIV-1 RNA PCR copies/ml HIV-1 RNA (PCR) log 03/10/18 03/10/18 03/10/18 01:00 04:40 04:40 WBC 11.8 H RBC Hgb 11.7 L Hct RDW Plt Count 8 L* Seg Neuts % (Manual) 93.0 H Lymphocytes % (Manual) 4.0 L Monocytes % (Manual) Seg Neutrophils # Man 11.0 H Abs Lymphs (Manual) Lymphocytes # (Manual) 0.5 L Monocytes # (Manual) PT INR APTT Fibrinogen POC ABG pH POC ABG pCO2 POC ABG pO2 VBG pH Sodium 136 L Potassium Chloride 96.6 L Carbon Dioxide 21 L BUN 62 H Creatinine 4.9 H Glucose POC Glucose Lactic Acid 4.10 H* Calcium 6.2 L D Phosphorus Magnesium Iron Ferritin Total Bilirubin Direct Bilirubin Alkaline Phosphatase Lactate Dehydrogenase Total Creatine Kinase NT-Pro-B Natriuret Pep Total Protein Albumin Triglycerides Vitamin B12 Folate Urine WBC (Auto) Urine Creatinine Urine Total Protein Complement C3 Lymph Enumerat CD4/CD8 Absolute CD3 Count % CD4 Cells Absolute CD4 Count % CD8 Cells HIV-1 RNA PCR copies/ml HIV-1 RNA (PCR) log 03/10/18 03/10/18 03/10/18 05:32 06:00 09:10 WBC RBC Hgb Hct RDW Plt Count Seg Neuts % (Manual) Lymphocytes % (Manual) Monocytes % (Manual) Seg Neutrophils # Man Abs Lymphs (Manual) Lymphocytes # (Manual) Monocytes # (Manual) PT INR APTT Fibrinogen POC ABG pH 7.254 L POC ABG pCO2 47.8 H POC ABG pO2 59 L VBG pH Sodium Potassium Chloride Carbon Dioxide BUN Creatinine Glucose POC Glucose 56 L Lactic Acid Calcium Phosphorus Magnesium Iron Ferritin Total Bilirubin Direct Bilirubin Alkaline Phosphatase Lactate Dehydrogenase Total Creatine Kinase NT-Pro-B Natriuret Pep Total Protein Albumin Triglycerides Vitamin B12 Folate Urine WBC (Auto) 32.0 H Urine Creatinine Urine Total Protein Complement C3 Lymph Enumerat CD4/CD8 Absolute CD3 Count % CD4 Cells Absolute CD4 Count % CD8 Cells HIV-1 RNA PCR copies/ml HIV-1 RNA (PCR) log 03/10/18 03/10/18 03/10/18 09:14 11:16 11:16 WBC RBC Hgb Hct RDW Plt Count Seg Neuts % (Manual) Lymphocytes % (Manual) Monocytes % (Manual) Seg Neutrophils # Man Abs Lymphs (Manual) Lymphocytes # (Manual) Monocytes # (Manual) PT INR APTT Fibrinogen POC ABG pH 7.266 L POC ABG pCO2 POC ABG pO2 VBG pH Sodium Potassium Chloride Carbon Dioxide BUN Creatinine Glucose POC Glucose Lactic Acid Calcium Phosphorus Magnesium Iron Ferritin Total Bilirubin Direct Bilirubin Alkaline Phosphatase Lactate Dehydrogenase 338 H Total Creatine Kinase 404 H NT-Pro-B Natriuret Pep 32218 H Total Protein Albumin Triglycerides Vitamin B12 Folate Urine WBC (Auto) Urine Creatinine Urine Total Protein Complement C3 Lymph Enumerat CD4/CD8 Absolute CD3 Count % CD4 Cells Absolute CD4 Count % CD8 Cells HIV-1 RNA PCR copies/ml HIV-1 RNA (PCR) log 03/10/18 03/10/18 03/10/18 11:51 18:15 18:15 WBC RBC Hgb Hct RDW Plt Count Seg Neuts % (Manual) Lymphocytes % (Manual) Monocytes % (Manual) Seg Neutrophils # Man Abs Lymphs (Manual) Lymphocytes # (Manual) Monocytes # (Manual) PT 17.2 H 17.0 H INR 1.36 H 1.34 H APTT 38.5 H Fibrinogen 852 H POC ABG pH POC ABG pCO2 POC ABG pO2 VBG pH Sodium Potassium Chloride Carbon Dioxide BUN Creatinine Glucose POC Glucose 109 H Lactic Acid Calcium Phosphorus Magnesium Iron Ferritin Total Bilirubin Direct Bilirubin Alkaline Phosphatase Lactate Dehydrogenase Total Creatine Kinase NT-Pro-B Natriuret Pep Total Protein Albumin Triglycerides Vitamin B12 Folate Urine WBC (Auto) Urine Creatinine Urine Total Protein Complement C3 Lymph Enumerat CD4/CD8 Absolute CD3 Count % CD4 Cells Absolute CD4 Count % CD8 Cells HIV-1 RNA PCR copies/ml HIV-1 RNA (PCR) log 03/10/18 03/10/18 03/10/18 18:15 18:15 19:45 WBC RBC Hgb Hct RDW Plt Count Seg Neuts % (Manual) Lymphocytes % (Manual) Monocytes % (Manual) Seg Neutrophils # Man Abs Lymphs (Manual) 779 L Lymphocytes # (Manual) Monocytes # (Manual) PT INR APTT Fibrinogen POC ABG pH POC ABG pCO2 POC ABG pO2 VBG pH Sodium Potassium Chloride Carbon Dioxide BUN Creatinine Glucose POC Glucose 136 H Lactic Acid Calcium Phosphorus Magnesium Iron Ferritin Total Bilirubin Direct Bilirubin Alkaline Phosphatase Lactate Dehydrogenase Total Creatine Kinase NT-Pro-B Natriuret Pep Total Protein Albumin Triglycerides Vitamin B12 Folate Urine WBC (Auto) Urine Creatinine Urine Total Protein Complement C3 Lymph Enumerat CD4/CD8 0.56 L Absolute CD3 Count 524 L % CD4 Cells 24 L Absolute CD4 Count 194 L % CD8 Cells 43 H HIV-1 RNA PCR copies/ml 61420 H HIV-1 RNA (PCR) log 4.71 H 03/10/18 03/10/18 03/10/18 20:40 22:07 23:06 WBC RBC Hgb Hct RDW Plt Count Seg Neuts % (Manual) Lymphocytes % (Manual) Monocytes % (Manual) Seg Neutrophils # Man Abs Lymphs (Manual) Lymphocytes # (Manual) Monocytes # (Manual) PT INR APTT Fibrinogen POC ABG pH POC ABG pCO2 POC ABG pO2 VBG pH Sodium Potassium Chloride Carbon Dioxide BUN Creatinine Glucose POC Glucose 135 H 135 H 133 H Lactic Acid Calcium Phosphorus Magnesium Iron Ferritin Total Bilirubin Direct Bilirubin Alkaline Phosphatase Lactate Dehydrogenase Total Creatine Kinase NT-Pro-B Natriuret Pep Total Protein Albumin Triglycerides Vitamin B12 Folate Urine WBC (Auto) Urine Creatinine Urine Total Protein Complement C3 Lymph Enumerat CD4/CD8 Absolute CD3 Count % CD4 Cells Absolute CD4 Count % CD8 Cells HIV-1 RNA PCR copies/ml HIV-1 RNA (PCR) log 03/11/18 03/11/18 03/11/18 00:07 02:01 03:10 WBC RBC Hgb Hct RDW Plt Count Seg Neuts % (Manual) Lymphocytes % (Manual) Monocytes % (Manual) Seg Neutrophils # Man Abs Lymphs (Manual) Lymphocytes # (Manual) Monocytes # (Manual) PT INR APTT Fibrinogen POC ABG pH POC ABG pCO2 POC ABG pO2 VBG pH Sodium Potassium Chloride Carbon Dioxide BUN Creatinine Glucose POC Glucose 148 H 161 H 189 H Lactic Acid Calcium Phosphorus Magnesium Iron Ferritin Total Bilirubin Direct Bilirubin Alkaline Phosphatase Lactate Dehydrogenase Total Creatine Kinase NT-Pro-B Natriuret Pep Total Protein Albumin Triglycerides Vitamin B12 Folate Urine WBC (Auto) Urine Creatinine Urine Total Protein Complement C3 Lymph Enumerat CD4/CD8 Absolute CD3 Count % CD4 Cells Absolute CD4 Count % CD8 Cells HIV-1 RNA PCR copies/ml HIV-1 RNA (PCR) log 03/11/18 03/11/18 03/11/18 04:12 04:50 04:50 WBC 12.8 H RBC Hgb 10.9 L Hct 32.5 L RDW 15.3 H Plt Count 17 L* D Seg Neuts % (Manual) 96.0 H Lymphocytes % (Manual) 2.0 L Monocytes % (Manual) Seg Neutrophils # Man 12.3 H Abs Lymphs (Manual) Lymphocytes # (Manual) 0.3 L Monocytes # (Manual) PT INR APTT Fibrinogen POC ABG pH POC ABG pCO2 POC ABG pO2 VBG pH Sodium Potassium Chloride 94.2 L Carbon Dioxide BUN 62 H Creatinine 2.7 H Glucose 191 H POC Glucose 188 H Lactic Acid Calcium 7.9 L D Phosphorus Magnesium Iron Ferritin Total Bilirubin Direct Bilirubin Alkaline Phosphatase Lactate Dehydrogenase Total Creatine Kinase NT-Pro-B Natriuret Pep Total Protein Albumin Triglycerides Vitamin B12 Folate Urine WBC (Auto) Urine Creatinine Urine Total Protein Complement C3 Lymph Enumerat CD4/CD8 Absolute CD3 Count % CD4 Cells Absolute CD4 Count % CD8 Cells HIV-1 RNA PCR copies/ml HIV-1 RNA (PCR) log 03/11/18 03/11/18 03/11/18 05:30 05:33 07:47 WBC RBC Hgb Hct RDW Plt Count Seg Neuts % (Manual) Lymphocytes % (Manual) Monocytes % (Manual) Seg Neutrophils # Man Abs Lymphs (Manual) Lymphocytes # (Manual) Monocytes # (Manual) PT INR APTT Fibrinogen POC ABG pH POC ABG pCO2 POC ABG pO2 58 L VBG pH Sodium Potassium Chloride Carbon Dioxide BUN Creatinine Glucose POC Glucose 187 H 151 H Lactic Acid Calcium Phosphorus Magnesium Iron Ferritin Total Bilirubin Direct Bilirubin Alkaline Phosphatase Lactate Dehydrogenase Total Creatine Kinase NT-Pro-B Natriuret Pep Total Protein Albumin Triglycerides Vitamin B12 Folate Urine WBC (Auto) Urine Creatinine Urine Total Protein Complement C3 Lymph Enumerat CD4/CD8 Absolute CD3 Count % CD4 Cells Absolute CD4 Count % CD8 Cells HIV-1 RNA PCR copies/ml HIV-1 RNA (PCR) log 03/11/18 03/11/18 03/11/18 12:11 13:18 14:26 WBC RBC Hgb Hct RDW Plt Count Seg Neuts % (Manual) Lymphocytes % (Manual) Monocytes % (Manual) Seg Neutrophils # Man Abs Lymphs (Manual) Lymphocytes # (Manual) Monocytes # (Manual) PT INR APTT Fibrinogen POC ABG pH POC ABG pCO2 POC ABG pO2 VBG pH Sodium Potassium Chloride Carbon Dioxide BUN Creatinine Glucose POC Glucose 166 H 157 H 145 H Lactic Acid Calcium Phosphorus Magnesium Iron Ferritin Total Bilirubin Direct Bilirubin Alkaline Phosphatase Lactate Dehydrogenase Total Creatine Kinase NT-Pro-B Natriuret Pep Total Protein Albumin Triglycerides Vitamin B12 Folate Urine WBC (Auto) Urine Creatinine Urine Total Protein Complement C3 Lymph Enumerat CD4/CD8 Absolute CD3 Count % CD4 Cells Absolute CD4 Count % CD8 Cells HIV-1 RNA PCR copies/ml HIV-1 RNA (PCR) log 03/11/18 03/11/18 03/11/18 14:48 15:15 16:17 WBC 21.2 H RBC Hgb 11.0 L Hct 33.8 L RDW Plt Count 15 L* Seg Neuts % (Manual) 92.0 H Lymphocytes % (Manual) 4.0 L Monocytes % (Manual) Seg Neutrophils # Man 19.5 H Abs Lymphs (Manual) Lymphocytes # (Manual) 0.8 L Monocytes # (Manual) PT INR APTT Fibrinogen POC ABG pH POC ABG pCO2 POC ABG pO2 VBG pH Sodium Potassium Chloride Carbon Dioxide BUN Creatinine Glucose POC Glucose 139 H 145 H Lactic Acid Calcium Phosphorus Magnesium Iron Ferritin Total Bilirubin Direct Bilirubin Alkaline Phosphatase Lactate Dehydrogenase Total Creatine Kinase NT-Pro-B Natriuret Pep Total Protein Albumin Triglycerides Vitamin B12 Folate Urine WBC (Auto) Urine Creatinine Urine Total Protein Complement C3 Lymph Enumerat CD4/CD8 Absolute CD3 Count % CD4 Cells Absolute CD4 Count % CD8 Cells HIV-1 RNA PCR copies/ml HIV-1 RNA (PCR) log 03/11/18 03/11/18 03/11/18 17:48 20:16 21:02 WBC RBC Hgb Hct RDW Plt Count Seg Neuts % (Manual) Lymphocytes % (Manual) Monocytes % (Manual) Seg Neutrophils # Man Abs Lymphs (Manual) Lymphocytes # (Manual) Monocytes # (Manual) PT INR APTT Fibrinogen POC ABG pH POC ABG pCO2 POC ABG pO2 VBG pH Sodium Potassium Chloride Carbon Dioxide BUN Creatinine Glucose POC Glucose 142 H 158 H 146 H Lactic Acid Calcium Phosphorus Magnesium Iron Ferritin Total Bilirubin Direct Bilirubin Alkaline Phosphatase Lactate Dehydrogenase Total Creatine Kinase NT-Pro-B Natriuret Pep Total Protein Albumin Triglycerides Vitamin B12 Folate Urine WBC (Auto) Urine Creatinine Urine Total Protein Complement C3 Lymph Enumerat CD4/CD8 Absolute CD3 Count % CD4 Cells Absolute CD4 Count % CD8 Cells HIV-1 RNA PCR copies/ml HIV-1 RNA (PCR) log 03/11/18 03/12/18 03/12/18 23:14 00:54 06:19 WBC 29.6 H RBC Hgb 10.6 L Hct 31.3 L RDW Plt Count 51 L D Seg Neuts % (Manual) Lymphocytes % (Manual) Monocytes % (Manual) Seg Neutrophils # Man Abs Lymphs (Manual) Lymphocytes # (Manual) Monocytes # (Manual) PT INR APTT Fibrinogen POC ABG pH POC ABG pCO2 POC ABG pO2 VBG pH Sodium Potassium Chloride Carbon Dioxide BUN Creatinine Glucose POC Glucose 168 H 185 H Lactic Acid Calcium Phosphorus Magnesium Iron Ferritin Total Bilirubin Direct Bilirubin Alkaline Phosphatase Lactate Dehydrogenase Total Creatine Kinase NT-Pro-B Natriuret Pep Total Protein Albumin Triglycerides Vitamin B12 Folate Urine WBC (Auto) Urine Creatinine Urine Total Protein Complement C3 Lymph Enumerat CD4/CD8 Absolute CD3 Count % CD4 Cells Absolute CD4 Count % CD8 Cells HIV-1 RNA PCR copies/ml HIV-1 RNA (PCR) log 03/12/18 03/12/18 03/12/18 06:29 06:29 06:29 WBC 32.7 H RBC Hgb 10.5 L Hct 31.7 L RDW 15.3 H Plt Count 34 L Seg Neuts % (Manual) 81.5 H Lymphocytes % (Manual) 7.0 L Monocytes % (Manual) 7.5 H Seg Neutrophils # Man 26.7 H Abs Lymphs (Manual) Lymphocytes # (Manual) Monocytes # (Manual) 2.5 H PT INR APTT Fibrinogen POC ABG pH POC ABG pCO2 POC ABG pO2 VBG pH Sodium Potassium 3.4 L Chloride Carbon Dioxide BUN 69 H Creatinine 2.2 H Glucose 181 H POC Glucose Lactic Acid Calcium Phosphorus Magnesium Iron Ferritin Total Bilirubin 2.30 H Direct Bilirubin 1.5 H Alkaline Phosphatase Lactate Dehydrogenase Total Creatine Kinase NT-Pro-B Natriuret Pep Total Protein 6.2 L Albumin 3.1 L Triglycerides Vitamin B12 Folate Urine WBC (Auto) Urine Creatinine Urine Total Protein Complement C3 Lymph Enumerat CD4/CD8 Absolute CD3 Count % CD4 Cells Absolute CD4 Count % CD8 Cells HIV-1 RNA PCR copies/ml HIV-1 RNA (PCR) log 03/12/18 03/12/18 03/12/18 07:21 07:44 10:16 WBC RBC Hgb Hct RDW Plt Count Seg Neuts % (Manual) Lymphocytes % (Manual) Monocytes % (Manual) Seg Neutrophils # Man Abs Lymphs (Manual) Lymphocytes # (Manual) Monocytes # (Manual) PT INR APTT Fibrinogen POC ABG pH 7.337 L POC ABG pCO2 54.9 H POC ABG pO2 59 L VBG pH Sodium Potassium Chloride Carbon Dioxide BUN Creatinine Glucose POC Glucose 157 H 153 H Lactic Acid Calcium Phosphorus Magnesium Iron Ferritin Total Bilirubin Direct Bilirubin Alkaline Phosphatase Lactate Dehydrogenase Total Creatine Kinase NT-Pro-B Natriuret Pep Total Protein Albumin Triglycerides Vitamin B12 Folate Urine WBC (Auto) Urine Creatinine Urine Total Protein Complement C3 Lymph Enumerat CD4/CD8 Absolute CD3 Count % CD4 Cells Absolute CD4 Count % CD8 Cells HIV-1 RNA PCR copies/ml HIV-1 RNA (PCR) log 01/07/2403/12/18 03/12/18 12:53 15:22 18:17 WBC RBC Hgb Hct RDW Plt Count Seg Neuts % (Manual) Lymphocytes % (Manual) Monocytes % (Manual) Seg Neutrophils # Man Abs Lymphs (Manual) Lymphocytes # (Manual) Monocytes # (Manual) PT INR APTT Fibrinogen POC ABG pH POC ABG pCO2 61.7 H POC ABG pO2 110 H VBG pH Sodium Potassium Chloride Carbon Dioxide BUN Creatinine Glucose POC Glucose 148 H 148 H Lactic Acid Calcium Phosphorus Magnesium Iron Ferritin Total Bilirubin Direct Bilirubin Alkaline Phosphatase Lactate Dehydrogenase Total Creatine Kinase NT-Pro-B Natriuret Pep Total Protein Albumin Triglycerides Vitamin B12 Folate Urine WBC (Auto) Urine Creatinine Urine Total Protein Complement C3 Lymph Enumerat CD4/CD8 Absolute CD3 Count % CD4 Cells Absolute CD4 Count % CD8 Cells HIV-1 RNA PCR copies/ml HIV-1 RNA (PCR) log 03/12/18 03/13/18 03/13/18 21:34 01:14 04:37 WBC RBC Hgb Hct RDW Plt Count Seg Neuts % (Manual) Lymphocytes % (Manual) Monocytes % (Manual) Seg Neutrophils # Man Abs Lymphs (Manual) Lymphocytes # (Manual) Monocytes # (Manual) PT INR APTT Fibrinogen POC ABG pH POC ABG pCO2 60.2 H POC ABG pO2 115 H VBG pH Sodium Potassium Chloride Carbon Dioxide BUN Creatinine Glucose POC Glucose 161 H 187 H Lactic Acid Calcium Phosphorus Magnesium Iron Ferritin Total Bilirubin Direct Bilirubin Alkaline Phosphatase Lactate Dehydrogenase Total Creatine Kinase NT-Pro-B Natriuret Pep Total Protein Albumin Triglycerides Vitamin B12 Folate Urine WBC (Auto) Urine Creatinine Urine Total Protein Complement C3 Lymph Enumerat CD4/CD8 Absolute CD3 Count % CD4 Cells Absolute CD4 Count % CD8 Cells HIV-1 RNA PCR copies/ml HIV-1 RNA (PCR) log 03/13/18 03/13/18 03/13/18 05:22 05:22 08:24 WBC 30.4 H RBC 3.45 L Hgb 9.8 L Hct 29.7 L RDW Plt Count 37 L Seg Neuts % (Manual) 75.5 H Lymphocytes % (Manual) 3.0 L Monocytes % (Manual) Seg Neutrophils # Man 23.0 H Abs Lymphs (Manual) Lymphocytes # (Manual) 0.9 L Monocytes # (Manual) PT INR APTT Fibrinogen POC ABG pH POC ABG pCO2 POC ABG pO2 VBG pH Sodium 146 H Potassium Chloride Carbon Dioxide 35 H D BUN 71 H Creatinine 1.7 H Glucose 187 H POC Glucose 210 H Lactic Acid Calcium Phosphorus Magnesium Iron Ferritin Total Bilirubin Direct Bilirubin Alkaline Phosphatase Lactate Dehydrogenase Total Creatine Kinase NT-Pro-B Natriuret Pep Total Protein Albumin Triglycerides Vitamin B12 Folate Urine WBC (Auto) Urine Creatinine Urine Total Protein Complement C3 Lymph Enumerat CD4/CD8 Absolute CD3 Count % CD4 Cells Absolute CD4 Count % CD8 Cells HIV-1 RNA PCR copies/ml HIV-1 RNA (PCR) log 03/13/18 03/13/18 03/13/18 12:22 12:44 17:27 WBC RBC Hgb Hct RDW Plt Count Seg Neuts % (Manual) Lymphocytes % (Manual) Monocytes % (Manual) Seg Neutrophils # Man Abs Lymphs (Manual) Lymphocytes # (Manual) Monocytes # (Manual) PT INR APTT Fibrinogen POC ABG pH POC ABG pCO2 POC ABG pO2 VBG pH Sodium Potassium Chloride Carbon Dioxide BUN Creatinine Glucose POC Glucose 208 H 169 H Lactic Acid Calcium Phosphorus Magnesium 3.00 H Iron Ferritin Total Bilirubin Direct Bilirubin Alkaline Phosphatase Lactate Dehydrogenase Total Creatine Kinase NT-Pro-B Natriuret Pep Total Protein Albumin Triglycerides Vitamin B12 Folate Urine WBC (Auto) Urine Creatinine Urine Total Protein Complement C3 Lymph Enumerat CD4/CD8 Absolute CD3 Count % CD4 Cells Absolute CD4 Count % CD8 Cells HIV-1 RNA PCR copies/ml HIV-1 RNA (PCR) log 03/13/18 03/14/18 03/14/18 23:35 04:29 05:23 WBC RBC Hgb Hct RDW Plt Count Seg Neuts % (Manual) Lymphocytes % (Manual) Monocytes % (Manual) Seg Neutrophils # Man Abs Lymphs (Manual) Lymphocytes # (Manual) Monocytes # (Manual) PT INR APTT Fibrinogen POC ABG pH 7.502 H POC ABG pCO2 53.2 H POC ABG pO2 VBG pH Sodium Potassium Chloride Carbon Dioxide BUN Creatinine Glucose POC Glucose 256 H 212 H Lactic Acid Calcium Phosphorus Magnesium Iron Ferritin Total Bilirubin Direct Bilirubin Alkaline Phosphatase Lactate Dehydrogenase Total Creatine Kinase NT-Pro-B Natriuret Pep Total Protein Albumin Triglycerides Vitamin B12 Folate Urine WBC (Auto) Urine Creatinine Urine Total Protein Complement C3 Lymph Enumerat CD4/CD8 Absolute CD3 Count % CD4 Cells Absolute CD4 Count % CD8 Cells HIV-1 RNA PCR copies/ml HIV-1 RNA (PCR) log 03/14/18 03/14/18 03/14/18 06:00 06:00 06:00 WBC 27.3 H RBC 3.52 L Hgb 10.0 L Hct 30.8 L RDW Plt Count 50 L Seg Neuts % (Manual) 87.0 H Lymphocytes % (Manual) 3.0 L Monocytes % (Manual) Seg Neutrophils # Man 23.8 H Abs Lymphs (Manual) Lymphocytes # (Manual) 0.8 L Monocytes # (Manual) 1.6 H PT INR APTT Fibrinogen POC ABG pH POC ABG pCO2 POC ABG pO2 VBG pH Sodium 156 H D Potassium Chloride 109.5 H Carbon Dioxide 37 H BUN 70 H Creatinine Glucose 202 H POC Glucose Lactic Acid Calcium Phosphorus Magnesium Iron Ferritin Total Bilirubin Direct Bilirubin Alkaline Phosphatase Lactate Dehydrogenase Total Creatine Kinase 17 L NT-Pro-B Natriuret Pep Total Protein Albumin Triglycerides Vitamin B12 Folate Urine WBC (Auto) Urine Creatinine Urine Total Protein Complement C3 Lymph Enumerat CD4/CD8 Absolute CD3 Count % CD4 Cells Absolute CD4 Count % CD8 Cells HIV-1 RNA PCR copies/ml HIV-1 RNA (PCR) log 03/14/18 03/14/18 03/14/18 07:00 07:00 07:00 WBC RBC Hgb Hct RDW Plt Count Seg Neuts % (Manual) Lymphocytes % (Manual) Monocytes % (Manual) Seg Neutrophils # Man Abs Lymphs (Manual) Lymphocytes # (Manual) Monocytes # (Manual) PT INR APTT Fibrinogen POC ABG pH POC ABG pCO2 POC ABG pO2 VBG pH Sodium Potassium Chloride Carbon Dioxide BUN Creatinine Glucose POC Glucose Lactic Acid Calcium Phosphorus Magnesium Iron 42 L Ferritin 532.4 H Total Bilirubin Direct Bilirubin Alkaline Phosphatase Lactate Dehydrogenase Total Creatine Kinase NT-Pro-B Natriuret Pep Total Protein Albumin Triglycerides Vitamin B12 1825 H Folate Urine WBC (Auto) Urine Creatinine Urine Total Protein Complement C3 Lymph Enumerat CD4/CD8 Absolute CD3 Count % CD4 Cells Absolute CD4 Count % CD8 Cells HIV-1 RNA PCR copies/ml HIV-1 RNA (PCR) log 03/14/18 03/14/18 03/14/18 07:00 07:00 13:01 WBC RBC Hgb Hct RDW Plt Count Seg Neuts % (Manual) Lymphocytes % (Manual) Monocytes % (Manual) Seg Neutrophils # Man Abs Lymphs (Manual) Lymphocytes # (Manual) Monocytes # (Manual) PT INR APTT Fibrinogen POC ABG pH POC ABG pCO2 POC ABG pO2 VBG pH Sodium Potassium Chloride Carbon Dioxide BUN Creatinine Glucose POC Glucose 201 H Lactic Acid Calcium Phosphorus Magnesium Iron Ferritin Total Bilirubin Direct Bilirubin Alkaline Phosphatase Lactate Dehydrogenase Total Creatine Kinase NT-Pro-B Natriuret Pep Total Protein Albumin Triglycerides 532 H Vitamin B12 Folate 6.29 L Urine WBC (Auto) Urine Creatinine Urine Total Protein Complement C3 Lymph Enumerat CD4/CD8 Absolute CD3 Count % CD4 Cells Absolute CD4 Count % CD8 Cells HIV-1 RNA PCR copies/ml HIV-1 RNA (PCR) log 03/14/18 03/14/18 03/14/18 17:37 21:04 23:30 WBC RBC Hgb Hct RDW Plt Count Seg Neuts % (Manual) Lymphocytes % (Manual) Monocytes % (Manual) Seg Neutrophils # Man Abs Lymphs (Manual) Lymphocytes # (Manual) Monocytes # (Manual) PT INR APTT Fibrinogen POC ABG pH POC ABG pCO2 POC ABG pO2 VBG pH Sodium 155 H Potassium Chloride 114.1 H Carbon Dioxide 33 H BUN 58 H Creatinine Glucose 166 H POC Glucose 179 H 167 H Lactic Acid Calcium Phosphorus Magnesium Iron Ferritin Total Bilirubin Direct Bilirubin Alkaline Phosphatase Lactate Dehydrogenase Total Creatine Kinase NT-Pro-B Natriuret Pep Total Protein Albumin Triglycerides Vitamin B12 Folate Urine WBC (Auto) Urine Creatinine Urine Total Protein Complement C3 Lymph Enumerat CD4/CD8 Absolute CD3 Count % CD4 Cells Absolute CD4 Count % CD8 Cells HIV-1 RNA PCR copies/ml HIV-1 RNA (PCR) log 03/15/18 03/15/18 03/15/18 04:44 04:44 04:44 WBC 26.0 H RBC Hgb 10.5 L Hct 33.0 L RDW Plt Count 70 L Seg Neuts % (Manual) 91.0 H Lymphocytes % (Manual) 6.0 L Monocytes % (Manual) Seg Neutrophils # Man 23.7 H Abs Lymphs (Manual) Lymphocytes # (Manual) Monocytes # (Manual) PT INR APTT Fibrinogen POC ABG pH POC ABG pCO2 POC ABG pO2 VBG pH Sodium 155 H Potassium Chloride 114.3 H Carbon Dioxide 31 H BUN 51 H Creatinine Glucose 173 H POC Glucose Lactic Acid Calcium Phosphorus Magnesium 2.80 H Iron Ferritin Total Bilirubin Direct Bilirubin Alkaline Phosphatase Lactate Dehydrogenase Total Creatine Kinase NT-Pro-B Natriuret Pep Total Protein Albumin Triglycerides Vitamin B12 Folate Urine WBC (Auto) Urine Creatinine Urine Total Protein Complement C3 Lymph Enumerat CD4/CD8 Absolute CD3 Count % CD4 Cells Absolute CD4 Count % CD8 Cells HIV-1 RNA PCR copies/ml HIV-1 RNA (PCR) log 03/15/18 03/15/18 03/15/18 04:53 06:36 17:25 WBC RBC Hgb Hct RDW Plt Count Seg Neuts % (Manual) Lymphocytes % (Manual) Monocytes % (Manual) Seg Neutrophils # Man Abs Lymphs (Manual) Lymphocytes # (Manual) Monocytes # (Manual) PT INR APTT Fibrinogen POC ABG pH POC ABG pCO2 59.0 H POC ABG pO2 112 H VBG pH Sodium Potassium Chloride Carbon Dioxide BUN Creatinine Glucose POC Glucose 199 H 138 H Lactic Acid Calcium Phosphorus Magnesium Iron Ferritin Total Bilirubin Direct Bilirubin Alkaline Phosphatase Lactate Dehydrogenase Total Creatine Kinase NT-Pro-B Natriuret Pep Total Protein Albumin Triglycerides Vitamin B12 Folate Urine WBC (Auto) Urine Creatinine Urine Total Protein Complement C3 Lymph Enumerat CD4/CD8 Absolute CD3 Count % CD4 Cells Absolute CD4 Count % CD8 Cells HIV-1 RNA PCR copies/ml HIV-1 RNA (PCR) log 03/15/18 03/16/18 03/16/18 23:20 03:59 05:01 WBC 21.9 H RBC Hgb 10.3 L Hct 32.5 L RDW Plt Count 88 L Seg Neuts % (Manual) 98.0 H Lymphocytes % (Manual) 2.0 L Monocytes % (Manual) Seg Neutrophils # Man 21.5 H Abs Lymphs (Manual) Lymphocytes # (Manual) 0.4 L Monocytes # (Manual) PT INR APTT Fibrinogen POC ABG pH POC ABG pCO2 46.6 H POC ABG pO2 50 L VBG pH Sodium Potassium Chloride Carbon Dioxide BUN Creatinine Glucose POC Glucose 182 H Lactic Acid Calcium Phosphorus Magnesium Iron Ferritin Total Bilirubin Direct Bilirubin Alkaline Phosphatase Lactate Dehydrogenase Total Creatine Kinase NT-Pro-B Natriuret Pep Total Protein Albumin Triglycerides Vitamin B12 Folate Urine WBC (Auto) Urine Creatinine Urine Total Protein Complement C3 Lymph Enumerat CD4/CD8 Absolute CD3 Count % CD4 Cells Absolute CD4 Count % CD8 Cells HIV-1 RNA PCR copies/ml HIV-1 RNA (PCR) log 03/16/18 03/16/18 03/16/18 05:01 05:01 05:29 WBC RBC Hgb Hct RDW Plt Count Seg Neuts % (Manual) Lymphocytes % (Manual) Monocytes % (Manual) Seg Neutrophils # Man Abs Lymphs (Manual) Lymphocytes # (Manual) Monocytes # (Manual) PT INR APTT Fibrinogen POC ABG pH POC ABG pCO2 POC ABG pO2 VBG pH Sodium 148 H Potassium 5.7 H Chloride 112.1 H Carbon Dioxide BUN 41 H Creatinine Glucose 234 H POC Glucose 257 H Lactic Acid Calcium Phosphorus Magnesium Iron Ferritin Total Bilirubin Direct Bilirubin Alkaline Phosphatase Lactate Dehydrogenase Total Creatine Kinase NT-Pro-B Natriuret Pep Total Protein Albumin Triglycerides 212 H Vitamin B12 Folate Urine WBC (Auto) Urine Creatinine Urine Total Protein Complement C3 Lymph Enumerat CD4/CD8 Absolute CD3 Count % CD4 Cells Absolute CD4 Count % CD8 Cells HIV-1 RNA PCR copies/ml HIV-1 RNA (PCR) log
[2018-03-16] MEDS: DECADRON 20 MG in NACL 0.9% 50 ML IV SCH ×2 (09:35→22:14)
[2018-03-16] MEDS: FOLVITE PO SCH (09:36)
[2018-03-16] MEDS: MEPRON PO SCH (09:36)
[2018-03-16] MEDS: PREVACID SOLUTAB FEEDTUBE SCH (09:36)
[2018-03-16] MEDS: MAXIPIME/NS 2 GM/100 ML 2 GM/100 ML BAG IV SCH ×2 (09:36→21:18)
[2018-03-16] MEDS: SODIUM CHLORIDE FLUSH SYRINGE 10 ML IV SCH ×2 (09:37→21:45)
[2018-03-16] MEDS ORDERED: HumuLIN R IV ONE (10:19)
[2018-03-16] MEDS ORDERED: D50W (25GM) Vial IV ONE (10:19)
[2018-03-16] MEDS ORDERED: KIONEX PO ONE (10:19)
--- NOTE | 2018-03-16 10:23 | Progress Note ---
Assessment and Plan Acute renal failure, prerenal azotemia vs. ischemic ATN from hypotension Lactic acidosis hypernatremia Nausea and vomiting, likely gastroenteritis Hyperkalemia Hypocalcemia Dilated Cardiomyopathy Acute Pulmonary Edema Thrombocytopenia Plan: - Cr is stable - cont D5W @ 75 cc/h - HIV 1&2 rapid antibody was reactive, ID on board, f/u recs - kayexelate and IV inslulin with D50 W for hyperkalemia, will repeat BMP ~ 1600 - was given one dose of Diamox for alkalosis, will d/c sodium bicarb - Renal US negative hydronephrosis - Cardiology, Hematology, Pulmonology, and ID on board - Off pressors - Renally dose meds - Strict intake and output Subjective Date of service: 03/16/18 Principal diagnosis: low plt Interval history: sedated and intubated, mother at bedside, all questions answered Objective - Vital Signs Vital signs: Vital Signs - 12hr 03/15/18 03/15/18 03/15/18 22:30 22:45 23:00 Temperature Pulse Rate 68 71 74 Pulse Rate [ From Monitor] Respiratory 18 11 L 19 Rate Blood Pressure 106/53 123/64 110/61 O2 Sat by Pulse 96 95 93 Oximetry 03/15/18 03/15/18 03/15/18 23:15 23:30 23:40 Temperature Pulse Rate 66 68 70 Pulse Rate [ From Monitor] Respiratory 19 21 18 Rate Blood Pressure 119/59 125/65 125/65 O2 Sat by Pulse 86 92 93 Oximetry 03/15/18 03/16/18 03/16/18 23:45 00:00 00:15 Temperature 97.8 F Pulse Rate 72 68 69 Pulse Rate [ 70 From Monitor] Respiratory 20 20 21 Rate Blood Pressure 115/63 109/58 111/58 O2 Sat by Pulse 93 97 96 Oximetry 03/16/18 03/16/18 03/16/18 00:30 00:45 01:00 Temperature Pulse Rate 68 66 70 Pulse Rate [ From Monitor] Respiratory 20 22 18 Rate Blood Pressure 107/64 117/60 120/63 O2 Sat by Pulse 96 95 97 Oximetry 03/16/18 03/16/18 03/16/18 01:15 01:30 01:45 Temperature Pulse Rate 65 64 58 L Pulse Rate [ From Monitor] Respiratory 19 20 21 Rate Blood Pressure 116/63 115/64 118/61 O2 Sat by Pulse 96 97 98 Oximetry 03/16/18 03/16/18 03/16/18 02:00 02:15 02:30 Temperature Pulse Rate 61 69 72 Pulse Rate [ From Monitor] Respiratory 20 17 18 Rate Blood Pressure 112/62 116/66 114/63 O2 Sat by Pulse 96 99 96 Oximetry 03/16/18 03/16/18 03/16/18 02:45 03:00 03:15 Temperature Pulse Rate 68 72 65 Pulse Rate [ From Monitor] Respiratory 19 21 20 Rate Blood Pressure 111/61 113/59 116/61 O2 Sat by Pulse 91 95 93 Oximetry 03/16/18 03/16/18 03/16/18 03:30 03:45 03:49 Temperature 98.9 F Pulse Rate 69 65 Pulse Rate [ From Monitor] Respiratory 18 18 Rate Blood Pressure 112/65 111/62 O2 Sat by Pulse 93 91 Oximetry 03/16/18 03/16/18 03/16/18 03:54 04:00 04:15 Temperature Pulse Rate 70 61 59 L Pulse Rate [ 81 From Monitor] Respiratory 20 21 15 Rate Blood Pressure 120/63 107/59 105/63 O2 Sat by Pulse 91 94 93 Oximetry 03/16/18 03/16/18 03/16/18 04:30 04:45 05:00 Temperature Pulse Rate 60 58 L 70 Pulse Rate [ From Monitor] Respiratory 19 20 20 Rate Blood Pressure 109/64 115/67 102/58 O2 Sat by Pulse 92 92 95 Oximetry 03/16/18 03/16/18 03/16/18 05:15 05:30 05:45 Temperature Pulse Rate 66 61 60 Pulse Rate [ From Monitor] Respiratory 19 20 19 Rate Blood Pressure 111/61 107/66 113/69 O2 Sat by Pulse 97 98 96 Oximetry 03/16/18 03/16/18 03/16/18 06:01 06:15 06:30 Temperature Pulse Rate 75 77 71 Pulse Rate [ From Monitor] Respiratory 15 10 L 13 Rate Blood Pressure 143/68 109/66 119/60 O2 Sat by Pulse 94 95 95 Oximetry 03/16/18 03/16/18 03/16/18 06:45 07:00 07:15 Temperature Pulse Rate 70 71 65 Pulse Rate [ From Monitor] Respiratory 18 17 19 Rate Blood Pressure 117/58 118/59 104/60 O2 Sat by Pulse 95 97 96 Oximetry 03/16/18 03/16/18 03/16/18 07:30 07:45 07:50 Temperature 98.4 F Pulse Rate 63 59 L Pulse Rate [ From Monitor] Respiratory 19 19 Rate Blood Pressure 101/62 108/62 O2 Sat by Pulse 95 97 Oximetry 03/16/18 03/16/18 03/16/18 08:00 08:15 08:26 Temperature Pulse Rate 62 65 63 Pulse Rate [ 60 From Monitor] Respiratory 22 19 Rate Blood Pressure 112/59 108/66 116/68 O2 Sat by Pulse 97 97 97 Oximetry 03/16/18 03/16/18 03/16/18 08:30 08:45 09:00 Temperature Pulse Rate 60 61 62 Pulse Rate [ From Monitor] Respiratory 18 19 20 Rate Blood Pressure 116/68 94/57 96/51 O2 Sat by Pulse 97 96 97 Oximetry 03/16/18 09:15 Temperature Pulse Rate 57 L Pulse Rate [ From Monitor] Respiratory 20 Rate Blood Pressure 97/53 O2 Sat by Pulse 94 Oximetry - General Appearance General appearance: well-developed, well-nourished, intubated EENT: ATNC, PERRL Neck: no JVD, no carotid bruit Respiratory: Present: Rales, Ronchi Cardiology: tachycardia, S1S2 Gastrointestinal: normoactive bowel sounds, no tenderness, no distended Integumentary: no rash, warm and dry Neurologic: other (sedated and intubated) Musculoskeletal: other (no edema in BLE) Psychiatric: other (sedated and intubated) - Lab 03/16/18 05:01 03/16/18 05:01 Most recent lab results Calcium 8.6 mg/dL (8.4-10.2) 03/16/18 05:01 Phosphorus 3.00 mg/dL (2.5-4.5) 03/16/18 05:01 Magnesium 2.80 mg/dL (1.7-2.3) H 03/15/18 04:44 Urine Creatinine 210.7 mg/dL (0.1-20.0) H 03/09/18 14:39 Urine Sodium 81 mmol/L 03/14/18 18:50 Urine Total Protein 820 mg/dL (5-11.8) H 03/09/18 14:39 Medications & Allergies - Medications Allergies/Adverse Reactions: Allergies clindamycin Allergy (Verified 03/09/18 06:43) Swelling Home Medications: Home Medications Medication Instructions Recorded Confirmed Last Taken Type No Known Home Medications [No 03/09/18 03/09/18 Unknown History Reported Home Medications] Active Medications: Generic Name Dose Route Start Last Admin Trade Name Freq PRN Reason Stop Dose Admin Lipase/Protease/Amylase 1 each 03/14/18 16:[address] 10,500 Unit FEEDTUBE PRN PRN For Clogged Feeding Tube Atovaquone 1,500 mg 03/11/18 20:00 03/16/18 09:36 Mepron PO 1,500 mg QDAY LIU Administration Dextrose 50 ml 03/09/18 16:15 D50w (25gm) Syringe IV PRN PRN HYPOGLYCEMIA Dextrose 25 gm 03/16/18 10:19 D50w (25gm) Vial IV 03/16/18 10:20 ONCE ONE Fentanyl 50 mcg 03/14/18 09:44 03/15/18 14:19 Sublimaze IV 50 mcg Q2H PRN Administration Pain , Severe (7-10) Folic Acid 1 mg 03/15/18 10:00 03/16/18 09:36 Folvite PO 1 mg QDAY LIU Administration Haloperidol Lactate 5 mg 03/12/18 02:15 03/15/18 14:10 Haldol IV 5 mg Q6H PRN Administration Agitation Hydrophilic Ointment 1 applic 03/12/18 07:47 03/13/18 11:34 Vaseline Lip Therapy TP 1 applic Q2HR PRN Administration Dry Lips Norepinephrine 4 mg in 250 mls @ 7.5 mls/hr 03/09/18 23:45 03/12/18 13:57 Levophed Drip 4 Mg/Ns 250 Ml IV 0 mcg/min TITR LIU 0 mls/hr Titration Protocol 2 MCG/MIN Vasopressin 20 unit/ Sodium 101 mls @ 9.09 mls/hr 03/10/18 11:00 03/14/18 10:30 Chloride IV 0 units/min TITR LIU 0 mls/hr Titration Protocol 0.03 UNITS/MIN Dexamethasone 20 mg/ Sodium 55 mls @ 100 mls/hr 03/11/18 11:30 03/16/18 09:35 Chloride IV 100 mls/hr Q12HR LIU Administration Propofol 1,000 mg in 100 mls @ 2.721 mls/hr 03/12/18 08:00 03/16/18 04:39 Diprivan 10 Mg/Ml IV 20 mcg/kg/min TITR LIU 10.884 mls/hr Administration Protocol 5 MCG/KG/MIN Cefepime HCl 2 gm in 100 mls @ 200 mls/hr 03/13/18 10:00 03/16/18 09:36 Maxipime/Ns 2 Gm/100 Ml IV 200 mls/hr Q12HR LIU Administration Fentanyl Citrate 2,000 mcg in 100 mls @ 4.535 mls/hr 03/14/18 10:00 03/16/18 06:06 Fentanyl Drip Premix IV 4 mcg/kg/hr TITR LIU 18.14 mls/hr Administration Protocol 1 MCG/KG/HR Dextrose 1,000 mls @ 75 mls/hr 03/14/18 11:00 03/16/18 02:24 D5w IV 50 mls/hr DIRECT LIU Administration Midazolam HCl 100 mg/ Sodium 100 mls @ 2 mls/hr 03/15/18 19:00 Chloride IV TITR LIU Protocol 2 MG/HR Insulin Human Lispro 0 unit 03/14/18 12:00 03/16/18 06:06 Humalog SUB-Q 6 unit Q6HR LIU Administration Protocol Insulin Human Regular 5 units 03/16/18 10:19 Humulin R IV 03/16/18 10:20 ONCE ONE Lansoprazole 30 mg 03/14/18 10:00 03/16/18 09:36 Prevacid Solutab FEEDTUBE 30 mg QDAY LIU Administration Lorazepam 2 mg 03/15/18 17:14 03/16/18 06:08 Ativan IV 2 mg Q3H PRN Administration Agitation Midazolam HCl 2 mg 03/15/18 18:03 Versed IV Q10MIN PRN Sedation Morphine Sulfate 2 mg 03/14/18 05:25 03/14/18 07:49 Morphine IV 2 mg Q4H PRN Administration Pain, Moderate (4-6) Multi-Ingred Cream/Lotion/Oil/Oint 1 applic 03/12/18 07:47 Artificial Tears Ophth Oint OU Q4HR PRN Dry Eye(s) Ondansetron HCl 4 mg 03/14/18 08:00 Zofran IV Q8H PRN Nausea And Vomiting Simple Syrup 15 ml 03/14/18 16:04 Simple Syrup FEEDTUBE PRN PRN Hypoglycemia Simple Syrup 30 ml 03/14/18 16:04 Simple Syrup FEEDTUBE PRN PRN Hypoglycemia Sodium Chloride 10 ml 03/09/18 22:00 03/16/18 09:37 Sodium Chloride Flush Syringe 10 Ml IV 10 ml BID LIU Administration Sodium Chloride 10 ml 03/09/18 10:41 Sodium Chloride Flush Syringe 10 Ml IV PRN PRN LINE FLUSH Sodium Polystyrene Sulfonate 30 gm 03/16/18 10:19 Kionex PO 03/16/18 10:20 ONCE ONE
--- NOTE | 2018-03-16 10:38 | XRay Report ---
AP CHEST: HISTORY: PICC placement The right arm PICC terminates in the lower SVC. The endotracheal tube and feeding tube remain in good position. Partial atelectasis is suspected in the left lower lobe. The left upper lobe and right lung are clear. Normal heart size. IMPRESSION: The right arm PICC terminates in the lower SVC. Partial atelectasis in the left lower lobe.
--- NOTE | 2018-03-16 13:32 | Progress Note ---
Assessment and Plan Assessment and plan: 33 yo with HIV infection. He initially presented with nausea, vomiting, general weakness and chills for 2 days. He was getting weaker, no Urine output therefore came to ED for evaluation. In ED, labs show acute kidney injury with metabolic acidosis thrombocytopenia. He was Sepic, hypotensive. Septic shock/Haemophilus hemolyticus bacteremia sp IVF and pressors, weaned off pressors Antibiotics per ID head and Sinus CT negative Thrombocytopenia, stable and improving, , no schistocytes seen on smear sp plt transfusion and steroids The patient's mother does not know that he is HIV positive, he would not like her to be informed about it. Acute hypoxic respiratory failure on MV >96 hours, intubated since 03/12/17 Pulmonary input appreciated, left hemidiaphragm is elevated, CT chest now shows partial left atelectesis, management per pulmonology planned for bronch HIV positive. Diagnosed 6 yrs ago, Stopped taking his medications over 6 months ago which was generally oriented. Last CD4 count was 400, current CD4 and HIV viral load are still pending SCOTT resolved, avoid nephrotoxins Hyponatremia,Hypoglycemia. treated and resolved Coagulopathy, improved Acute toxic metabolic encephalpathy has been agitated and hard to sedate, obtain UDS -cont iv sedation dvt ppx -scds in light of thrombocytopenia Critical care time 35 minutes History Interval history: Patient has been agitated easily, requiring restraints and IV sedation No fevers, no seizures no vomiting Hospitalist Physical - Physical exam Narrative exam: General.: Appears well, no distress, nontoxic HEENT: Moist mucous membranes, extraocular muscles intact, no lymphadenopathy Neck: supple Cardiac: S1-S2 heard Lungs: Ventilated breath sounds Abdomen: soft , nontender, nondistended, bowel sounds positive Extremities: no edema clubbing or cyanosis Skin: no rash or lesions Neurologic: Intubated and sedated - Constitutional Vitals: Temp Pulse Resp BP Pulse Ox 98.7 F 56 L 20 109/61 93 03/16/18 11:49 03/16/18 12:24 03/16/18 12:15 03/16/18 12:24 03/16/18 12:24 General appearance: Present: cachectic, other (chronically ill-appearing) Results - Labs CBC & Chem 7: 03/18/18 04:16 03/18/18 04:16 Labs: Laboratory Last Values WBC 21.9 K/mm3 (4.5-11.0) H 03/16/18 05:01 RBC 3.65 M/mm3 (3.65-5.03) 03/16/18 05:01 Hgb 10.3 gm/dl (11.8-15.2) L 03/16/18 05:01 Hct 32.5 % (35.5-45.6) L 03/16/18 05:01 MCV 89 fl (84-94) 03/16/18 05:01 MCH 28 pg (28-32) 03/16/18 05:01 MCHC 32 % (32-34) 03/16/18 05:01 RDW 15.0 % (13.2-15.2) 03/16/18 05:01 Plt Count 88 K/mm3 (140-440) L 03/16/18 05:01 Eos % (Auto) Melt House Centrifugal Operator 03/09/18 07:00 Add Manual Diff Complete 03/16/18 05:01 Total Counted 100 03/16/18 05:01 Seg Neutrophils % Melt House Centrifugal Operator 03/16/18 05:01 Seg Neuts % (Manual) 98.0 % (40.0-70.0) H 03/16/18 05:01 Band Neutrophils % 0 % 03/16/18 05:01 Lymphocytes % (Manual) 2.0 % (13.4-35.0) L 03/16/18 05:01 Reactive Lymphs % (Man) 0 % 03/16/18 05:01 Monocytes % (Manual) 0 % (0.0-7.3) 03/16/18 05:01 Eosinophils % (Manual) 0 % (0.0-4.3) 03/16/18 05:01 Basophils % (Manual) 0 % (0.0-1.8) 03/16/18 05:01 Metamyelocytes % 0 % 03/16/18 05:01 Myelocytes % 0 % 03/16/18 05:01 Promyelocytes % 0 % 03/16/18 05:01 Blast Cells % 0 % 03/16/18 05:01 Nucleated RBC % Not Reportable 03/16/18 05:01 Seg Neutrophils # Man 21.5 K/mm3 (1.8-7.7) H 03/16/18 05:01 Band Neutrophils # 0.0 K/mm3 03/16/18 05:01 Abs Lymphs (Manual) 779 cells/uL (850-3900) L 03/10/18 18:15 Lymphocytes # (Manual) 0.4 K/mm3 (1.2-5.4) L 03/16/18 05:01 Abs React Lymphs (Man) 0.0 K/mm3 03/16/18 05:01 Monocytes # (Manual) 0.0 K/mm3 (0.0-0.8) 03/16/18 05:01 Eosinophils # (Manual) 0.0 K/mm3 (0.0-0.4) 03/16/18 05:01 Basophils # (Manual) 0.0 K/mm3 (0.0-0.1) 03/16/18 05:01 Metamyelocytes # 0.0 K/mm3 03/16/18 05:01 Myelocytes # 0.0 K/mm3 03/16/18 05:01 Promyelocytes # 0.0 K/mm3 03/16/18 05:01 Blast Cells # 0.0 K/mm3 03/16/18 05:01 Pathologist Review 03/12/18 06:29 WBC Morphology Not Reportable 03/16/18 05:01 Hypersegmented Neuts Not Reportable 03/16/18 05:01 Hyposegmented Neuts Not Reportable 03/16/18 05:01 Hypogranular Neuts Not Reportable 03/16/18 05:01 Smudge Cells Not Reportable 03/16/18 05:01 Toxic Granulation Not Reportable 03/16/18 05:01 Toxic Vacuolation Not Reportable 03/16/18 05:01 Dohle Bodies Not Reportable 03/16/18 05:01 Pelger-Huet Anomaly Not Reportable 03/16/18 05:01 Kamar Rods Not Reportable 03/16/18 05:01 Platelet Estimate Consistent w auto 03/16/18 05:01 Clumped Platelets Not Reportable 03/16/18 05:01 Plt Clumps, EDTA Not Reportable 03/16/18 05:01 Large Platelets Not Reportable 03/16/18 05:01 Giant Platelets Not Reportable 03/16/18 05:01 Platelet Satelliting Not Reportable 03/16/18 05:01 Plt Morphology Comment Not Reportable 03/16/18 05:01 RBC Morphology Not Reportable 03/16/18 05:01 Dimorphic RBCs Not Reportable 03/16/18 05:01 Polychromasia Not Reportable 03/16/18 05:01 Hypochromasia Not Reportable 03/16/18 05:01 Poikilocytosis 1+ 03/16/18 05:01 Anisocytosis 1+ 03/16/18 05:01 Microcytosis Not Reportable 03/16/18 05:01 Macrocytosis Not Reportable 03/16/18 05:01 Spherocytes Not Reportable 03/16/18 05:01 Pappenheimer Bodies Not Reportable 03/16/18 05:01 Sickle Cells Not Reportable 03/16/18 05:01 Target Cells Rare 03/16/18 05:01 Tear Drop Cells Not Reportable 03/16/18 05:01 Ovalocytes Rare 03/16/18 05:01 Stomatocytes Rare 03/14/18 06:00 Helmet Cells Not Reportable 03/16/18 05:01 [place] Bodies Not Reportable 03/16/18 05:01 [place] Rings Not Reportable 03/16/18 05:01 [place] Cells Not Reportable 03/16/18 05:01 Bite Cells Not Reportable 03/16/18 05:01 Crenated Cell Not Reportable 03/16/18 05:01 Elliptocytes Not Reportable 03/16/18 05:01 Acanthocytes (Spur) Not Reportable 03/16/18 05:01 Rouleaux Not Reportable 03/16/18 05:01 Hemoglobin C Crystals Not Reportable 03/16/18 05:01 Schistocytes Not Reportable 03/16/18 05:01 Malaria parasites Not Reportable 03/16/18 05:01 Jose Bodies Not Reportable 03/16/18 05:01 Hem Pathologist Commnt No 03/16/18 05:01 PT 17.2 Sec. (12.2-14.9) H 03/10/18 18:15 INR 1.36 (0.87-1.13) H 03/10/18 18:15 APTT 38.5 Sec. (24.2-36.6) H 03/10/18 18:15 Fibrinogen 852 mg/dl (211-480) H 03/10/18 18:15 POC ABG pH 7.397 (7.35-7.45) 03/16/18 03:59 POC ABG pCO2 46.6 (35-45) H 03/16/18 03:59 POC ABG pO2 50 (80-105) L 03/16/18 03:59 POC ABG HCO3 28.7 03/16/18 03:59 POC ABG Total CO2 30 03/16/18 03:59 POC ABG O2 Sat 84 03/16/18 03:59 POC ABG Base Excess 4 03/16/18 03:59 VBG pH 7.297 (7.320-7.420) L 03/09/18 07:00 FiO2 50 % 03/16/18 03:59 Sodium 148 mmol/L (137-145) H 03/16/18 05:01 Potassium 4.9 mmol/L (3.6-5.0) 03/16/18 10:33 Chloride 112.1 mmol/L (98-107) H 03/16/18 05:01 Carbon Dioxide 27 mmol/L (22-30) 03/16/18 05:01 Anion Gap 15 mmol/L 03/16/18 05:01 BUN 41 mg/dL (9-20) H 03/16/18 05:01 Creatinine 0.9 mg/dL (0.8-1.5) 03/16/18 05:01 Estimated GFR > 60 ml/min 03/16/18 05:01 BUN/Creatinine Ratio 46 % 03/16/18 05:01 Glucose 234 mg/dL (75-100) H 03/16/18 05:01 POC Glucose 186 (70-105) H 03/16/18 11:30 Osmolality 256 Mosm/kg 03/14/18 07:00 Lactic Acid 4.10 mmol/L (0.7-2.0) H* 03/10/18 01:00 Calcium 8.6 mg/dL (8.4-10.2) 03/16/18 05:01 Phosphorus 3.00 mg/dL (2.5-4.5) 03/16/18 05:01 Magnesium 2.80 mg/dL (1.7-2.3) H 03/15/18 04:44 Iron 42 ug/dL (49-181) L 03/14/18 07:00 TIBC 262 mcg/dL (250-450) 03/14/18 07:00 Ferritin 532.4 ng/mL (13.0-400.0) H 03/14/18 07:00 Total Bilirubin 2.30 mg/dL (0.1-1.2) H 03/12/18 06:29 Direct Bilirubin 1.5 mg/dL (0-0.2) H 03/12/18 06:29 Indirect Bilirubin 0.8 mg/dL 03/12/18 06:29 AST 33 units/L (5-40) 03/12/18 06:29 ALT 48 units/L (7-56) 03/12/18 06:29 Alkaline Phosphatase 111 units/L (35-129) 03/12/18 06:29 Lactate Dehydrogenase 338 units/L (91-180) H 03/10/18 11:16 Total Creatine Kinase 17 units/L (55-170) L 03/14/18 06:00 NT-Pro-B Natriuret Pep 02784 pg/mL (0-450) H 03/10/18 11:16 Total Protein 6.2 g/dL (6.3-8.2) L 03/12/18 06:29 Albumin 3.1 g/dL (3.9-5) L 03/12/18 06:29 Albumin/Globulin Ratio 1.0 % 03/12/18 06:29 Triglycerides 212 mg/dL (2-149) H 03/16/18 05:01 Vitamin B12 1825 pg/mL (211-911) H 03/14/18 07:00 Folate 6.29 ng/mL (7.3-26.0) L 03/14/18 07:00 Urine Color Red (Yellow) 03/10/18 06:00 Urine Turbidity Cloudy (Clear) 03/10/18 06:00 Urine pH 5.0 (5.0-7.0) 03/10/18 06:00 Ur Specific [place] 1.009 (1.003-1.030) 03/10/18 06:00 Urine Protein 100 mg/dl mg/dL (Negative) 03/10/18 06:00 Urine Glucose (UA) Neg mg/dL (Negative) 03/10/18 06:00 Urine Ketones Neg mg/dL (Negative) 03/10/18 06:00 Urine Blood Lg (Negative) 03/10/18 06:00 Urine Nitrite Neg (Negative) 03/10/18 06:00 Urine Bilirubin Neg (Negative) 03/10/18 06:00 Urine Urobilinogen < 2.0 mg/dL (<2.0) 03/10/18 06:00 Ur Leukocyte Esterase Neg (Negative) 03/10/18 06:00 Urine WBC (Auto) 32.0 /HPF (0.0-6.0) H 03/10/18 06:00 Urine RBC (Auto) > 182.0 /HPF (0.0-6.0) 03/10/18 06:00 U Epithel Cells (Auto) 5.0 /HPF (0-13.0) 03/09/18 14:39 Urine Bacteria (Auto) 2+ /HPF (Negative) 03/10/18 06:00 Urine WBC Clumps Few /HPF 03/09/18 14:39 Amorphous Crystals 3+ 03/10/18 06:00 Granular Casts 29 /LPF 03/10/18 06:00 Urine Creatinine 210.7 mg/dL (0.1-20.0) H 03/09/18 14:39 Protein/Creatinin Ratio 3.89 03/09/18 14:39 Urine Sodium 81 mmol/L 03/14/18 18:50 Urine Total Protein 820 mg/dL (5-11.8) H 03/09/18 14:39 FELICIA Screen Negative (Negative) 03/10/18 11:16 Proteinase 3 (PR3) Ab <1.0 AI (<1.0) 03/10/18 11:16 Myeloperoxidase Ab <1.0 AI (<1.0) 03/10/18 11:16 Glomerular Base Mem IgG See scanned result 03/10/18 11:16 Complement C3 83 mg/dL (82-185) 03/10/18 11:16 Complement C4 30 mg/dL (15-53) 03/10/18 11:16 Lymph Enumerat CD4/CD8 0.56 (0.86-5.00) L 03/10/18 18:15 % CD3 Cells 67 % (57-85) 03/10/18 18:15 Absolute CD3 Count 524 cells/uL (840-3060) L 03/10/18 18:15 % CD4 Cells 24 % (30-61) L 03/10/18 18:15 Absolute CD4 Count 194 cells/uL (490-1740) L 03/10/18 18:15 % CD8 Cells 43 % (12-42) H 03/10/18 18:15 Absolute CD8 Count 344 cells/uL (180-1170) 03/10/18 18:15 % CD19 Cells 25 % (6-29) 03/10/18 18:15 Absolute CD19 Count 188 cells/uL (110-660) 03/10/18 18:15 Hepatitis A IgM Ab Non-reactive (NonReactive) 03/09/18 20:39 Hep Bs Antigen Non-reactive (Negative) 03/09/18 20:39 Hep B Core IgM Ab Non-reactive (NonReactive) 03/09/18 20:39 Hepatitis C Antibody Non-reactive (NonReactive) 03/09/18 20:39 HIV-1 Antibody See scanned result 03/09/18 20:39 HIV-1 RNA PCR copies/ml 02729 Copies/mL H 03/10/18 18:15 HIV-1 RNA (PCR) log 4.71 Log cps/mL H 03/10/18 18:15 HIV-2 Ab (Immunoblot) See scanned result 03/09/18 20:39 HIV 1&2 Antibody Rapid Reactive (Non React) 03/09/18 20:39 HIV P24 Antigen Non react (Non React) 03/09/18 20:39 Influenza A (Rapid) Negative (Negative) 03/09/18 Unknown Influenza B (Rapid) Negative (Negative) 03/09/18 Unknown Schistocytes Smear Rare 03/10/18 11:16 Blood Type O POSITIVE 03/09/18 12:36 Antibody Screen Negative 03/09/18 12:36 Nutrition/Malnutrition Assess - Dietary Evaluation Nutrition/Malnutrition Findings: Nutrition Notes Start: 03/12/18 12:51 Freq: Status: Active Protocol: Document 03/16/18 12:19 (Rec: 03/16/18 12:38 [email or web address]) Co-Sign 03/16/18 12:19 OL Nutrition Notes Initial or Follow up Reassessment Current Diagnosis Acute Kidney Injury Sepsis Respiratory Failure Other Pertinent Diagnosis HIV Current Diet Osmolite 1.5 at 60 ml/hr Labs/Tests Na 148 K 5.7 BUN: 41 T Pertinent Medications propofol at 10.884 ml/hr (287 kcals) Height 5 ft 11 in Weight 90.7 kg [place] Body Weight (lbs) 172.0 BMI 27.8 Subjective/Other Information Observed Osmolite 1.5 infusing at 60 ml/hr. Pt tolerating TF per nurse. During interdisciplinary rounds, per MD TF will be on hold for 24 hrs for procedure. Percent of energy/protein needs met: 100%/83% Burn Absent Trauma Absent #2 Nutrition Diagnosis Inadequate oral intake Diagnosis Progress(for reassessment Continues documentation) Is patient on ventilator? Yes Is Patient Ambulatory and/or Out of Bed No REE-([facility]-confined to bed) 2792.128 Calculation Used for Recommendations [facility] Additional Notes Protein needs are 109-181g (1. 2-2g/kg) Fluid needs are 1ml/kcal Nutrition Intervention Nutrition Support: Osmolite 1.5 at 60ml/hr Water flush of 250 mls q 4 hrs until hypernatremia resolves. Water flush of 200 mls q 4 hrs after hypernatremia resolves. Kcal 2,160 Protein (gm) 90 Fluid (mL) 1,097 Goal #1 Continue to meet at least 80% of kcal and protein needs Anticipated Discharge Needs: Unable to determine at this time Follow-Up By: 03/18/18 Additional Comments F/U for TF restart and tolerance, Na and K labs. Consider change of formula
[2018-03-16] MEDS ORDERED: TRIPLE ANTIBIOTIC TP ONE (15:00)
[2018-03-16] MEDS: SENOKOT S PO SCH ×2 (15:00→21:19)
--- NOTE | 2018-03-16 16:04 | Progress Note ---
Assessment and Plan Cultures: 03/09/2018 blood culture: Hemophilus hemolyticus in both sets 03/09/2018 influenza rapid: Negative 03/10/2018 urine culture: Negative 03/12/2018 Resp culture: usual resp thomas. 03/12/2018 Crypto Ag serum: negative. 03/13/2018 blood culture no growth so far A/P: 33/M with no medical history, admitted with: 1) Septic shock: resolved; etio ? H flu bacteremia. 2) Acute respiratory failure: now on vent. Initial CXR not suggestive of pneumonia, low suspicion for PJP pneumonia especially since patient reported a good recent CD4 count. Repeat CXRs are probably more suggestive of fluid overload / pulmonary edema which has steadily been improving with diuretics. Anyways, patient on Atovaquone which will cover PJP. Avoiding Bactrim due to thrombocytopenia. 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 Initial CXR not suggestive of pneumonia. Repeat blood cultures neg. CT chest showed possible LLL infiltrate/atelectasis/mucous plugging 4) HIV positive: Apparently he has been HIV positive, used to be on meds - Genvoya but stopped taking it 6 months ago, states his last CD4 count was 400+. HIV RNA PCR and CD4 count pending. 5) Acute renal failure: resolved 6) Severe thrombocytopenia, coagulopathy: TTP v/s DIC- improving. [id number] pending. No schistocytes. FELICIA neg, ANCA neg. C3 low (unclear significance), C4 normal. 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 etiology unclear. ?HIV related. Cardiology following. Recs: - pt is to have bronch tomorrow, please send BAL cultures - continue Cefepime 2 gm q12 hrs D7 of 10 - continue mepron (atovaquone) - HIV PCR and CD4 count pending - ordered - remove right fem TLC I discussed with his brother Caden Liu who stated his brother told him about HIV infection but not any other family member. His mother was unintentionally alerted by a Health department call but patient did not want any other person other than his brother to know. Will follow. Please call with questions. MD [facility] C: [phone] O: [phone] F: [phone] Subjective Date of service: 03/16/18 Principal diagnosis: low plt Interval history: Patient remains on the vent FiO2 60%,p 10, on sedation Objective - Exam Narrative Exam: Constitutional: sedated but agitated intubated, on vent. Head, Ears, Nose: Normocephalic, atraumatic. External ears, nose normal Eyes: Conjunctivae/corneas clear. No icterus. No ptosis. Neck: Supple, no meningeal signs Oral: intubated, +ETT, +NGT Cardiovascular: RRR Respiratory: CTA ace GI: bowel sounds normal. No peritoneal signs Musculoskeletal: No pedal edema, no cyanosis. Skin: No rash or abscess Hem/Lymphatic: No palpable cervical or supraclavicular nodes. No lymphangitis Psych: sedated Neurological: sedated, intubated, exam limited Right fem TLC - Constitutional Vitals: Vital Signs Temp Pulse Resp BP Pulse Ox 98.8 F 59 L 20 106/61 91 03/16/18 15:59 03/16/18 15:15 03/16/18 15:15 03/16/18 15:15 03/16/18 15:15 Temperature -Last 24 Hours Temperature 98.8 F Temperature 98.7 F Temperature 98.4 F Temperature 98.9 F Temperature 97.8 F Temperature 97.9 F - Labs CBC & Chem 7: 03/16/18 05:01 03/16/18 10:33 Labs: Abnormal lab results 03/15/18 03/15/18 03/16/18 Range/Units 17:25 23:20 03:59 WBC (4.5-11.0) K/mm3 Hgb (11.8-15.2) gm/dl Hct (35.5-45.6) % Plt Count (140-440) K/mm3 Seg Neuts % (Manual) (40.0-70.0) % Lymphocytes % (Manual) (13.4-35.0) % Seg Neutrophils # Man (1.8-7.7) K/mm3 Lymphocytes # (Manual) (1.2-5.4) K/mm3 POC ABG pCO2 46.6 H (35-45) POC ABG pO2 50 L (80-105) Sodium (137-145) mmol/L Potassium (3.6-5.0) mmol/L Chloride (98-107) mmol/L BUN (9-20) mg/dL Glucose (75-100) mg/dL POC Glucose 138 H 182 H (70-105) Triglycerides (2-149) mg/dL 03/16/18 03/16/18 03/16/18 Range/Units 05:01 05:01 05:01 WBC 21.9 H (4.5-11.0) K/mm3 Hgb 10.3 L (11.8-15.2) gm/dl Hct 32.5 L (35.5-45.6) % Plt Count 88 L (140-440) K/mm3 Seg Neuts % (Manual) 98.0 H (40.0-70.0) % Lymphocytes % (Manual) 2.0 L (13.4-35.0) % Seg Neutrophils # Man 21.5 H (1.8-7.7) K/mm3 Lymphocytes # (Manual) 0.4 L (1.2-5.4) K/mm3 POC ABG pCO2 (35-45) POC ABG pO2 (80-105) Sodium 148 H (137-145) mmol/L Potassium 5.7 H (3.6-5.0) mmol/L Chloride 112.1 H (98-107) mmol/L BUN 41 H (9-20) mg/dL Glucose 234 H (75-100) mg/dL POC Glucose (70-105) Triglycerides 212 H (2-149) mg/dL 03/16/18 03/16/18 Range/Units 05:29 11:30 WBC (4.5-11.0) K/mm3 Hgb (11.8-15.2) gm/dl Hct (35.5-45.6) % Plt Count (140-440) K/mm3 Seg Neuts % (Manual) (40.0-70.0) % Lymphocytes % (Manual) (13.4-35.0) % Seg Neutrophils # Man (1.8-7.7) K/mm3 Lymphocytes # (Manual) (1.2-5.4) K/mm3 POC ABG pCO2 (35-45) POC ABG pO2 (80-105) Sodium (137-145) mmol/L Potassium (3.6-5.0) mmol/L Chloride (98-107) mmol/L BUN (9-20) mg/dL Glucose (75-100) mg/dL POC Glucose 257 H 186 H (70-105) Triglycerides (2-149) mg/dL
[2018-03-16 16:44] LABS: BUN/Creatinine Ratio 49; Blood Urea Nitrogen 39 mg/dL (9-20); Calcium 8.5 mg/dL (8.4-10.2); Hemolysis Index 11
[2018-03-16 19:11] LABS: Amphetamine Screen,Urine PRESUMPTIVE NEGATIVE; Benzodiazepines Screen,Urine PRESUMPTIVE NEGATIVE; Cocaine Screen,Urine PRESUMPTIVE NEGATIVE; Methadone Screen,Urine PRESUMPTIVE NEGATIVE; Opiate Screen,Urine PRESUMPTIVE NEGATIVE
[2018-03-16 20:07] LABS: Cannabinoid Screen,Urine PRESUMPTIVE POSITIVE
[2018-03-17] MEDS: HALDOL IV PRN ×2 (00:29→12:46)
[2018-03-17] MEDS: HumaLOG SUB-Q SCH ×4 (00:30→18:55)
[2018-03-17] MEDS: ATIVAN IV PRN ×3 (00:55→17:41)
[2018-03-17] MEDS: fentaNYL DRIP Premix 2,000 MCG/100 ML BAG IV SCH ×5 (02:19→21:00)
[2018-03-17] MEDS: DIPRIVAN 10 MG/ML 1,000 MG/100 ML BOTTLE IV SCH ×3 (03:08→20:59)
--- NOTE | 2018-03-17 04:35 | XRay Report ---
FINAL REPORT PROCEDURE: XR CHEST 1V AP TECHNIQUE: Chest radiograph anteroposterior view. CPT 07307 HISTORY: Hypoxemia COMPARISON: No prior studies are available for comparison. FINDINGS: Heart: Normal. Mediastinum/Vessels: Normal. Lungs/Pleural space: Normal. Bony thorax: No acute osseous abnormality. Life support devices: The endotracheal tube is in the mid trachea. There is an NG tube in the stomach . There is a right-sided central venous catheter. The tip is in the superior vena cava.. IMPRESSION: No acute cardiopulmonary abnormality. The endotracheal tube is in the mid trachea. There is an NG tube in the stomach. There is a right-teri ed central venous catheter. The tip is in the superior vena cava..
[2018-03-17 04:39] LABS: Hemoglobin 8.2 gm/dl (11.8-15.2); Mean Corpuscular HGB Conc 32 % (32-34); Mean Corpuscular Volume 89 fl (84-94); Red Blood Count 2.89 M/mm3 (3.65-5.03); Red Cell Distribution Width 14.9 % (13.2-15.2)
[2018-03-17 04:53] LABS: Platelet Count 85 K/mm3 (140-440)
[2018-03-17 04:54] LABS: BUN/Creatinine Ratio 48; Blood Urea Nitrogen 38 mg/dL (9-20); Calcium 8.4 mg/dL (8.4-10.2); Hematocrit 27.8 % (35.5-45.6); Hemolysis Index 3
[2018-03-17 06:16] LABS: Basophils % (Manual) 0 % (0.0-1.8); Eosinophils % (Manual) 0 % (0.0-4.3); Total Cells Counted 100
[2018-03-17 06:21] LABS: Anisocytosis 1+; Ovalocytes Few; Platelet Estimate Consistent w Auto; Target Cells Few
[2018-03-17] MEDS: D5W 1,000 ML IV SCH (08:00)
--- NOTE | 2018-03-17 08:00 | Hem/Onc Progress Note ---
Assessment and Plan 1. Thrombocytopenia. I reviewed the peripheral smear. I spoke to the research lab assistant. The laboratory report mentioned no schistocytes. When I reviewed the smear it did not have any schistocytes. Creatinine is elevated. The patient is short of breath. 2. At this time, differential includes some idiopathic thrombocytopenic purpura. Other differentials include immunosuppression related or medication or infection related. The patient's PT, PTT is elevated, but fibrinogen is not low. At admission, chest x-ray was clear and now it has worsened. There is a clinical suspicion of this being infection or disseminated intravascular coagulation or acute respiratory distress syndrome. 3. Renal impairment. 4. Decreased urine output. 5. h/o Shortness of breath. 6. Human immunodeficiency virus, pt was on treatment. 7. discussed with IDT. 8. steroid trial. 9. BNP was elevated. 10. I ordered [id number]. 11. Abnormal liver function tests. 12. Being treated for Haemophilus influenzae. 13. CD4 count 400. I will follow the patient during inpatient stay. 03/11/2018 - d/w dr garrison - low EF pt is on dexa 40 daily s/p plt transfusion no active bleeding 03/12/2018 s/p plt transfusion on dexa intubated d/w lab reg [id number] HIV d/w dr ojeda 03/15 - low folate plt better once plt >100 - will look into altering steroids as per nurse - good urine OP 03/16/2017 - pt plt are better - will follow off pressors 03/17/2018 - hb low as s iron was low - iv iron trial plt 85 - ct dexa for now - once >100 will look into changing ADAMTS - report not seen - Patient Problems (1) Thrombocytopenia Current Visit: Yes Status: Acute Subjective Date of service: 03/17/18 Principal diagnosis: low plt Interval history: on vent off pressors on sedation on dexa Objective - Exam Narrative Exam: on vent - sedated - Constitutional Vitals: Last Vital Signs Temp 98.1 F 03/17/18 04:00 Pulse 49 L 03/17/18 07:00 Resp 17 03/17/18 07:00 BP 102/53 03/17/18 07:00 Pulse Ox 93 03/17/18 07:00 General appearance: no acute distress Performance status: 4-completely disabled - EENT Lymph node exam: negative cervical, negative supraclavicular - Respiratory Respiratory effort: Positive: normal Respiratory: bilateral: diminished - Cardiovascular Heart Sounds: Present: S1 & S2 Extremities: No edema - Gastrointestinal General gastrointestinal: Present: soft Rectal Exam: deferred - Genitourinary Male genitourinary: Present: deferred - Integumentary Integumentary: warm - Neurologic Neurologic: other (sedated) - Labs Lab Results: Laboratory Results - last 24 hr 03/16/18 03/16/18 03/16/18 05:01 10:33 11:30 WBC RBC Hgb Hct MCV MCH MCHC RDW Plt Count Add Manual Diff Complete Total Counted 100 Seg Neutrophils % Seg Neuts % (Manual) 98.0 H Band Neutrophils % 0 Lymphocytes % (Manual) 2.0 L Reactive Lymphs % (Man) 0 Monocytes % (Manual) 0 Eosinophils % (Manual) 0 Basophils % (Manual) 0 Metamyelocytes % 0 Myelocytes % 0 Promyelocytes % 0 Blast Cells % 0 Nucleated RBC % Not Reportable Seg Neutrophils # Man 21.5 H Band Neutrophils # 0.0 Lymphocytes # (Manual) 0.4 L Abs React Lymphs (Man) 0.0 Monocytes # (Manual) 0.0 Eosinophils # (Manual) 0.0 Basophils # (Manual) 0.0 Metamyelocytes # 0.0 Myelocytes # 0.0 Promyelocytes # 0.0 Blast Cells # 0.0 WBC Morphology Not Reportable Hypersegmented Neuts Not Reportable Hyposegmented Neuts Not Reportable Hypogranular Neuts Not Reportable Smudge Cells Not Reportable Toxic Granulation Not Reportable Toxic Vacuolation Not Reportable Dohle Bodies Not Reportable Pelger-Huet Anomaly Not Reportable Kamar Rods Not Reportable Platelet Estimate Consistent w auto Clumped Platelets Not Reportable Plt Clumps, EDTA Not Reportable Large Platelets Not Reportable Giant Platelets Not Reportable Platelet Satelliting Not Reportable Plt Morphology Comment Not Reportable RBC Morphology Not Reportable Dimorphic RBCs Not Reportable Polychromasia Not Reportable Hypochromasia Not Reportable Poikilocytosis 1+ Anisocytosis 1+ Microcytosis Not Reportable Macrocytosis Not Reportable Spherocytes Not Reportable Pappenheimer Bodies Not Reportable Sickle Cells Not Reportable Target Cells Rare Tear Drop Cells Not Reportable Ovalocytes Rare Helmet Cells Not Reportable Barnes-[place] Bodies Not Reportable [place] Rings Not Reportable Lyssa Cells Not Reportable Bite Cells Not Reportable Crenated Cell Not Reportable Elliptocytes Not Reportable Acanthocytes (Spur) Not Reportable Rouleaux Not Reportable Hemoglobin C Crystals Not Reportable Schistocytes Not Reportable Malaria parasites Not Reportable Jose Bodies Not Reportable Hem Pathologist Commnt No POC ABG pH POC ABG pCO2 POC ABG pO2 POC ABG HCO3 POC ABG Total CO2 POC ABG O2 Sat POC ABG Base Excess FiO2 Sodium Potassium 4.9 Chloride Carbon Dioxide Anion Gap BUN Creatinine Estimated GFR BUN/Creatinine Ratio Glucose POC Glucose 186 H Calcium Phosphorus Magnesium Urine Opiates Screen Urine Methadone Screen Ur Barbiturates Screen Ur Phencyclidine Scrn Ur Amphetamines Screen U Benzodiazepines Scrn Urine Cocaine Screen U Marijuana (THC) Screen Drugs of Abuse Note 03/16/18 03/16/18 03/16/18 15:56 17:28 23:48 WBC RBC Hgb Hct MCV MCH MCHC RDW Plt Count Add Manual Diff Total Counted Seg Neutrophils % Seg Neuts % (Manual) Band Neutrophils % Lymphocytes % (Manual) Reactive Lymphs % (Man) Monocytes % (Manual) Eosinophils % (Manual) Basophils % (Manual) Metamyelocytes % Myelocytes % Promyelocytes % Blast Cells % Nucleated RBC % Seg Neutrophils # Man Band Neutrophils # Lymphocytes # (Manual) Abs React Lymphs (Man) Monocytes # (Manual) Eosinophils # (Manual) Basophils # (Manual) Metamyelocytes # Myelocytes # Promyelocytes # Blast Cells # WBC Morphology Hypersegmented Neuts Hyposegmented Neuts Hypogranular Neuts Smudge Cells Toxic Granulation Toxic Vacuolation Dohle Bodies Pelger-Huet Anomaly Kamar Rods Platelet Estimate Clumped Platelets Plt Clumps, EDTA Large Platelets Giant Platelets Platelet Satelliting Plt Morphology Comment RBC Morphology Dimorphic RBCs Polychromasia Hypochromasia Poikilocytosis Anisocytosis Microcytosis Macrocytosis Spherocytes Pappenheimer Bodies Sickle Cells Target Cells Tear Drop Cells Ovalocytes Helmet Cells Barnes-[place] Bodies [place] Rings [place] Cells Bite Cells Crenated Cell Elliptocytes Acanthocytes (Spur) Rouleaux Hemoglobin C Crystals Schistocytes Malaria parasites Jose Bodies Hem Pathologist Commnt POC ABG pH POC ABG pCO2 POC ABG pO2 POC ABG HCO3 POC ABG Total CO2 POC ABG O2 Sat POC ABG Base Excess FiO2 Sodium 141 Potassium 5.5 H Chloride 106.4 Carbon Dioxide 27 Anion Gap 13 BUN 39 H Creatinine 0.8 Estimated GFR > 60 BUN/Creatinine Ratio 49 Glucose 186 H POC Glucose 153 H 131 H Calcium 8.5 Phosphorus Magnesium Urine Opiates Screen Urine Methadone Screen Ur Barbiturates Screen Ur Phencyclidine Scrn Ur Amphetamines Screen U Benzodiazepines Scrn Urine Cocaine Screen U Marijuana (THC) Screen Drugs of Abuse Note 03/16/18 03/17/18 03/17/18 Unknown 04:25 04:25 WBC 13.9 H RBC 2.89 L Hgb 8.2 L Hct 27.8 L MCV 89 MCH 28 MCHC 32 RDW 14.9 Plt Count 85 L Add Manual Diff Complete Total Counted 100 Seg Neutrophils % [employer] Seg Neuts % (Manual) 88.0 H Band Neutrophils % 7.0 Lymphocytes % (Manual) 4.0 L Reactive Lymphs % (Man) 0 Monocytes % (Manual) 1.0 Eosinophils % (Manual) 0 Basophils % (Manual) 0 Metamyelocytes % 0 Myelocytes % 0 Promyelocytes % 0 Blast Cells % 0 Nucleated RBC % Not Reportable Seg Neutrophils # Man 12.2 H Band Neutrophils # 1.0 Lymphocytes # (Manual) 0.6 L Abs React Lymphs (Man) 0.0 Monocytes # (Manual) 0.1 Eosinophils # (Manual) 0.0 Basophils # (Manual) 0.0 Metamyelocytes # 0.0 Myelocytes # 0.0 Promyelocytes # 0.0 Blast Cells # 0.0 WBC Morphology Not Reportable Hypersegmented Neuts Not Reportable Hyposegmented Neuts Not Reportable Hypogranular Neuts Not Reportable Smudge Cells Not Reportable Toxic Granulation Not Reportable Toxic Vacuolation Not Reportable Dohle Bodies Not Reportable Pelger-Huet Anomaly Not Reportable Kamar Rods Not Reportable Platelet Estimate Consistent w auto Clumped Platelets Not Reportable Plt Clumps, EDTA Not Reportable Large Platelets Not Reportable Giant Platelets Not Reportable Platelet Satelliting Not Reportable Plt Morphology Comment Not Reportable RBC Morphology Not Reportable Dimorphic RBCs Not Reportable Polychromasia Not Reportable Hypochromasia Not Reportable Poikilocytosis Not Reportable Anisocytosis 1+ Microcytosis Not Reportable Macrocytosis Not Reportable Spherocytes Not Reportable Pappenheimer Bodies Not Reportable Sickle Cells Not Reportable Target Cells Few Tear Drop Cells Not Reportable Ovalocytes Few Helmet Cells Not Reportable Barnes-[place] Bodies Not Reportable [place] Rings Not Reportable Lyssa Cells Not Reportable Bite Cells Not Reportable Crenated Cell Not Reportable Elliptocytes Not Reportable Acanthocytes (Spur) Not Reportable Rouleaux Not Reportable Hemoglobin C Crystals Not Reportable Schistocytes Not Reportable Malaria parasites Not Reportable Jose Bodies Not Reportable Hem Pathologist Commnt No POC ABG pH POC ABG pCO2 POC ABG pO2 POC ABG HCO3 POC ABG Total CO2 POC ABG O2 Sat POC ABG Base Excess FiO2 Sodium 142 Potassium 5.7 H Chloride 107.5 H Carbon Dioxide 27 Anion Gap 13 BUN 38 H Creatinine 0.8 Estimated GFR > 60 BUN/Creatinine Ratio 48 Glucose 165 H POC Glucose Calcium 8.4 Phosphorus 4.10 D Magnesium Urine Opiates Screen Presumptive negative Urine Methadone Screen Presumptive negative Ur Barbiturates Screen Presumptive negative Ur Phencyclidine Scrn Presumptive negative Ur Amphetamines Screen Presumptive negative U Benzodiazepines Scrn Presumptive negative Urine Cocaine Screen Presumptive negative U Marijuana (THC) Screen Presumptive positive Drugs of Abuse Note Disclamer 03/17/18 03/17/18 03/17/18 04:25 04:51 05:39 WBC RBC Hgb Hct MCV MCH MCHC RDW Plt Count Add Manual Diff Total Counted Seg Neutrophils % Seg Neuts % (Manual) Band Neutrophils % Lymphocytes % (Manual) Reactive Lymphs % (Man) Monocytes % (Manual) Eosinophils % (Manual) Basophils % (Manual) Metamyelocytes % Myelocytes % Promyelocytes % Blast Cells % Nucleated RBC % Seg Neutrophils # Man Band Neutrophils # Lymphocytes # (Manual) Abs React Lymphs (Man) Monocytes # (Manual) Eosinophils # (Manual) Basophils # (Manual) Metamyelocytes # Myelocytes # Promyelocytes # Blast Cells # WBC Morphology Hypersegmented Neuts Hyposegmented Neuts Hypogranular Neuts Smudge Cells Toxic Granulation Toxic Vacuolation Dohle Bodies Pelger-Huet Anomaly Kamar Rods Platelet Estimate Clumped Platelets Plt Clumps, EDTA Large Platelets Giant Platelets Platelet Satelliting Plt Morphology Comment RBC Morphology Dimorphic RBCs Polychromasia Hypochromasia Poikilocytosis Anisocytosis Microcytosis Macrocytosis Spherocytes Pappenheimer Bodies Sickle Cells Target Cells Tear Drop Cells Ovalocytes Helmet Cells Barnes-[place] Bodies [place] Rings [place] Cells Bite Cells Crenated Cell Elliptocytes Acanthocytes (Spur) Rouleaux Hemoglobin C Crystals Schistocytes Malaria parasites Jose Bodies Hem Pathologist Commnt POC ABG pH 7.407 POC ABG pCO2 45.4 H POC ABG pO2 174 H POC ABG HCO3 28.6 POC ABG Total CO2 30 POC ABG O2 Sat 100 POC ABG Base Excess 4 FiO2 75 Sodium Potassium Chloride Carbon Dioxide Anion Gap BUN Creatinine Estimated GFR BUN/Creatinine Ratio Glucose POC Glucose 140 H Calcium Phosphorus Magnesium 2.00 Urine Opiates Screen Urine Methadone Screen Ur Barbiturates Screen Ur Phencyclidine Scrn Ur Amphetamines Screen U Benzodiazepines Scrn Urine Cocaine Screen U Marijuana (THC) Screen Drugs of Abuse Note Medications & Allergies - Medications Allergies/Adverse Reactions: Allergies clindamycin Allergy (Verified 03/09/18 06:43) Swelling Home Medications: Home Medications Medication Instructions Recorded Confirmed Last Taken Type No Known Home Medications [No 03/09/18 03/09/18 Unknown History Reported Home Medications] Active Medications: Generic Name Dose Route Start Last Admin Trade Name Freq PRN Reason Stop Dose Admin Lipase/Protease/Amylase 1 each 03/14/18 16:[address] 10,500 Unit FEEDTUBE PRN PRN For Clogged Feeding Tube Atovaquone 1,500 mg 03/11/18 20:00 03/16/18 09:36 Mepron PO 1,500 mg QDAY LIU Administration Dextrose 50 ml 03/09/18 16:15 D50w (25gm) Syringe IV PRN PRN HYPOGLYCEMIA Fentanyl 50 mcg 03/14/18 09:44 03/15/18 14:19 Sublimaze IV 50 mcg Q2H PRN Administration Pain , Severe (7-10) Folic Acid 1 mg 03/15/18 10:00 03/16/18 09:36 Folvite PO 1 mg QDAY LIU Administration Haloperidol Lactate 5 mg 03/12/18 02:15 03/17/18 00:29 Haldol IV 5 mg Q6H PRN Administration Agitation Hydrophilic Ointment 1 applic 03/12/18 07:47 03/13/18 11:34 Vaseline Lip Therapy TP 1 applic Q2HR PRN Administration Dry Lips Norepinephrine 4 mg in 250 mls @ 7.5 mls/hr 03/09/18 23:45 03/12/18 13:57 Levophed Drip 4 Mg/Ns 250 Ml IV 0 mcg/min TITR LIU 0 mls/hr Titration Protocol 2 MCG/MIN Vasopressin 20 unit/ Sodium 101 mls @ 9.09 mls/hr 03/10/18 11:00 03/14/18 10:30 Chloride IV 0 units/min TITR LIU 0 mls/hr Titration Protocol 0.03 UNITS/MIN Dexamethasone 20 mg/ Sodium 55 mls @ 100 mls/hr 03/11/18 11:30 03/16/18 22:14 Chloride IV 100 mls/hr Q12HR LIU Administration Propofol 1,000 mg in 100 mls @ 2.721 mls/hr 03/12/18 08:00 03/17/18 03:08 Diprivan 10 Mg/Ml IV 25 mcg/kg/min TITR LIU 13.605 mls/hr Administration Protocol 5 MCG/KG/MIN Cefepime HCl 2 gm in 100 mls @ 200 mls/hr 03/13/18 10:00 03/16/18 21:18 Maxipime/Ns 2 Gm/100 Ml IV 200 mls/hr Q12HR LIU Administration Fentanyl Citrate 2,000 mcg in 100 mls @ 4.535 mls/hr 03/14/18 10:00 03/17/18 02:19 Fentanyl Drip Premix IV 4 mcg/kg/hr TITR LIU 18.14 mls/hr Administration Protocol 1 MCG/KG/HR Dextrose 1,000 mls @ 75 mls/hr 03/14/18 11:00 03/16/18 17:18 D5w IV 75 mls/hr DIRECT LIU Administration Midazolam HCl 100 mg/ Sodium 100 mls @ 2 mls/hr 03/15/18 19:00 Chloride IV TITR LIU Protocol 2 MG/HR Ferric Sodium Gluconate 110 mls @ 100 mls/hr 03/17/18 07:58 Complex 125 mg/ Sodium IV 03/17/18 09:03 Chloride ONCE ONE Insulin Human Lispro 0 unit 03/14/18 12:00 03/17/18 06:38 Humalog SUB-Q Not Given Q6HR LIU Protocol Lansoprazole 30 mg 03/14/18 10:00 03/16/18 09:36 Prevacid Solutab FEEDTUBE 30 mg QDAY LIU Administration Lorazepam 2 mg 03/15/18 17:14 03/17/18 05:33 Ativan IV 2 mg Q3H PRN Administration Agitation Midazolam HCl 2 mg 03/15/18 18:03 Versed IV Q10MIN PRN Sedation Morphine Sulfate 2 mg 03/14/18 05:25 03/14/18 07:49 Morphine IV 2 mg Q4H PRN Administration Pain, Moderate (4-6) Multi-Ingred Cream/Lotion/Oil/Oint 1 applic 03/12/18 07:47 Artificial Tears Ophth Oint OU Q4HR PRN Dry Eye(s) Ondansetron HCl 4 mg 03/14/18 08:00 Zofran IV Q8H PRN Nausea And Vomiting Senna/Docusate Sodium 2 tab 03/16/18 11:00 03/16/18 21:19 Senokot S PO 2 tab BID LIU Administration Simple Syrup 15 ml 03/14/18 16:04 Simple Syrup FEEDTUBE PRN PRN Hypoglycemia Simple Syrup 30 ml 03/14/18 16:04 Simple Syrup FEEDTUBE PRN PRN Hypoglycemia Sodium Chloride 10 ml 03/09/18 22:00 03/16/18 21:45 Sodium Chloride Flush Syringe 10 Ml IV 10 ml BID LIU Administration Sodium Chloride 10 ml 03/09/18 10:41 Sodium Chloride Flush Syringe 10 Ml IV PRN PRN LINE FLUSH
[2018-03-17] MEDS ORDERED: FERRLECIT 125 MG in NACL 0.9% 100 ML IV ONE (09:00)
--- NOTE | 2018-03-17 09:03 | Progress Note ---
Assessment and Plan Acute respiratory failure. Hyperkalemia. Progressive. c/u,not on supplments but will fletcher dawson under sheriff. 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 HCO3 normal Aspiration pneumonia, atelectasis. CT scan revealing moderate amount of material in the trachea and main proximal bronchi on my review-not really detailed on official report. Plan for FOB today but worsening K+ Shock. Off PRESSORS KLAUDIA/sepsis. Fever still noted. Head and sinus CT scan negative, see comments regarding chest CT scan . HIV. ID following see recommendations. 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 No gross bleeding Cardiomyopathy with ejection fraction of 25% Bradycardia,hyperkalemia- also holding propofol, switching to fentanyl,versed Recommendations Hold FOB Kayexalate Nephro f/u Taper sedation SBT Maintain extubation precautions DVT prophylaxis PPI prophylaxis Adjust fentanyl , versed Critical care time was 40 minutes of [id number] evaluation and coordination of care Subjective Date of service: 03/17/18 Principal diagnosis: Resp failure, atelectasis aspiration,HIV, hyperkalemia,sepsis,low plt Interval history: Sedated and intubated Objective Vital Signs - 12hr 03/16/18 03/16/18 03/16/18 21:00 21:15 21:30 Temperature Pulse Rate 61 61 59 L Pulse Rate [ From Monitor] Respiratory 20 21 20 Rate Blood Pressure 102/56 106/57 101/58 O2 Sat by Pulse 97 93 95 Oximetry 03/16/18 03/16/18 03/16/18 21:45 22:00 22:15 Temperature Pulse Rate 56 L 64 59 L Pulse Rate [ From Monitor] Respiratory 18 20 18 Rate Blood Pressure 104/57 100/58 102/52 O2 Sat by Pulse 93 96 91 Oximetry 03/16/18 03/16/18 03/16/18 22:18 22:30 22:45 Temperature Pulse Rate 62 57 L 57 L Pulse Rate [ From Monitor] Respiratory 20 20 20 Rate Blood Pressure 102/52 97/55 100/54 O2 Sat by Pulse 95 91 92 Oximetry 03/16/18 03/16/18 03/16/18 23:00 23:15 23:30 Temperature Pulse Rate 59 L 58 L 60 Pulse Rate [ From Monitor] Respiratory 22 20 20 Rate Blood Pressure 99/52 96/52 97/54 O2 Sat by Pulse 99 99 100 Oximetry 0103/16/18 03/17/18 23:37 23:45 00:00 Temperature 98.7 F Pulse Rate 60 60 54 L Pulse Rate [ 71 From Monitor] Respiratory 20 20 Rate Blood Pressure 97/54 99/52 95/54 O2 Sat by Pulse 57 L 99 98 Oximetry 03/17/18 03/17/18 03/17/18 00:15 00:30 00:46 Temperature Pulse Rate 52 L 67 69 Pulse Rate [ From Monitor] Respiratory 19 20 16 Rate Blood Pressure 102/58 112/64 115/65 O2 Sat by Pulse 89 100 100 Oximetry 03/17/18 03/17/18 03/17/18 01:00 01:15 01:30 Temperature Pulse Rate 64 67 59 L Pulse Rate [ From Monitor] Respiratory 20 18 19 Rate Blood Pressure 115/65 110/54 99/52 O2 Sat by Pulse 100 100 99 Oximetry 03/17/18 03/17/18 03/17/18 01:45 02:00 02:15 Temperature Pulse Rate 61 56 L 55 L Pulse Rate [ From Monitor] Respiratory 17 20 19 Rate Blood Pressure 100/50 100/46 96/48 O2 Sat by Pulse 99 100 100 Oximetry 03/17/18 03/17/18 03/17/18 02:30 02:45 03:00 Temperature Pulse Rate 55 L 55 L 52 L Pulse Rate [ From Monitor] Respiratory 19 20 20 Rate Blood Pressure 99/52 106/67 97/51 O2 Sat by Pulse 100 100 100 Oximetry 03/17/18 03/17/18 03/17/18 03:15 03:30 03:37 Temperature Pulse Rate 53 L 49 L 50 L Pulse Rate [ From Monitor] Respiratory 20 20 Rate Blood Pressure 97/51 96/51 69/51 O2 Sat by Pulse 100 100 49 L Oximetry 03/17/18 03/17/18 03/17/18 03:45 04:00 04:15 Temperature 98.1 F Pulse Rate 50 L 48 L 47 L Pulse Rate [ 48 L From Monitor] Respiratory 20 20 20 Rate Blood Pressure 96/52 97/51 94/52 O2 Sat by Pulse 100 100 100 Oximetry 03/17/18 03/17/18 03/17/18 04:30 04:46 05:00 Temperature Pulse Rate 49 L 65 64 Pulse Rate [ From Monitor] Respiratory 20 17 20 Rate Blood Pressure 98/53 106/58 111/67 O2 Sat by Pulse 100 99 100 Oximetry 03/17/18 03/17/18 03/17/18 05:15 05:30 05:46 Temperature Pulse Rate 61 61 54 L Pulse Rate [ From Monitor] Respiratory 19 15 12 Rate Blood Pressure 110/55 120/68 120/68 O2 Sat by Pulse 100 98 97 Oximetry 03/17/18 03/17/18 03/17/18 06:00 06:15 06:30 Temperature Pulse Rate 54 L 52 L 49 L Pulse Rate [ From Monitor] Respiratory 20 19 18 Rate Blood Pressure 110/61 106/59 112/61 O2 Sat by Pulse 97 91 89 Oximetry 03/17/18 03/17/18 03/17/18 06:45 07:00 08:30 Temperature Pulse Rate 54 L 49 L 49 L Pulse Rate [ From Monitor] Respiratory 19 17 Rate Blood Pressure 108/60 102/53 102/53 O2 Sat by Pulse 88 93 93 Oximetry Constitutional: appears uncomfortable Eyes: non-icteric ENT: oropharynx dry, other (orally intubated and sedated) Neck: supple Effort: mildly labored Ascultation: Bilateral: clear, diminished breath sounds, rales (OCCASIONAL) Percussion: Bilateral: not dull Cardiovascular: regular rate and rhythm, other (sinus tach) Gastrointestinal: normoactive bowel sounds, non-tender Integumentary: normal Extremities: no cyanosis, no edema, pink and warm Neurologic: unable to assess, other (RA SS -1) CBC and BMP: 03/18/18 04:16 03/18/18 04:16 ABG, PT/INR, D-dimer: ABG POC ABG pH 7.407 (7.35-7.45) 03/17/18 04:51 POC ABG pCO2 45.4 (35-45) H 03/17/18 04:51 POC ABG pO2 174 (80-105) H 03/17/18 04:51 POC ABG HCO3 28.6 03/17/18 04:51 POC ABG Total CO2 30 03/17/18 04:51 POC ABG O2 Sat 100 03/17/18 04:51 PT/INR, D-dimer PT 17.2 Sec. (12.2-14.9) H 03/10/18 18:15 INR 1.36 (0.87-1.13) H 03/10/18 18:15 Abnormal lab findings: Abnormal Labs 03/09/18 03/09/18 03/09/18 07:00 07:00 07:00 WBC RBC Hgb Hct RDW 15.5 H Plt Count 25 L Seg Neuts % (Manual) 90.0 H Lymphocytes % (Manual) 5.0 L Monocytes % (Manual) Seg Neutrophils # Man Abs Lymphs (Manual) Lymphocytes # (Manual) 0.4 L Monocytes # (Manual) PT 22.9 H INR 1.98 H APTT Fibrinogen POC ABG pH POC ABG pCO2 POC ABG pO2 VBG pH Sodium 135 L Potassium Chloride 90.8 L Carbon Dioxide 17 L BUN 45 H Creatinine 5.8 H Glucose 72 L POC Glucose Lactic Acid Calcium 7.6 L Phosphorus Magnesium Iron Ferritin Total Bilirubin Direct Bilirubin Alkaline Phosphatase 154 H Lactate Dehydrogenase Total Creatine Kinase NT-Pro-B Natriuret Pep Total Protein Albumin 3.6 L Triglycerides Vitamin B12 Folate Urine WBC (Auto) Urine Creatinine Urine Total Protein Complement C3 Lymph Enumerat CD4/CD8 Absolute CD3 Count % CD4 Cells Absolute CD4 Count % CD8 Cells HIV-1 RNA PCR copies/ml HIV-1 RNA (PCR) log 03/09/18 03/09/18 03/09/18 07:00 07:00 07:00 WBC RBC Hgb Hct RDW Plt Count Seg Neuts % (Manual) Lymphocytes % (Manual) Monocytes % (Manual) Seg Neutrophils # Man Abs Lymphs (Manual) Lymphocytes # (Manual) Monocytes # (Manual) PT INR APTT Fibrinogen POC ABG pH POC ABG pCO2 POC ABG pO2 VBG pH 7.297 L Sodium Potassium Chloride Carbon Dioxide BUN Creatinine Glucose POC Glucose Lactic Acid 6.80 H* Calcium Phosphorus 5.40 H Magnesium 1.20 L Iron Ferritin Total Bilirubin Direct Bilirubin Alkaline Phosphatase Lactate Dehydrogenase Total Creatine Kinase 228 H NT-Pro-B Natriuret Pep Total Protein Albumin Triglycerides Vitamin B12 Folate Urine WBC (Auto) Urine Creatinine Urine Total Protein Complement C3 Lymph Enumerat CD4/CD8 Absolute CD3 Count % CD4 Cells Absolute CD4 Count % CD8 Cells HIV-1 RNA PCR copies/ml HIV-1 RNA (PCR) log 03/09/18 03/09/18 03/09/18 09:22 12:36 14:39 WBC RBC Hgb Hct RDW Plt Count Seg Neuts % (Manual) Lymphocytes % (Manual) Monocytes % (Manual) Seg Neutrophils # Man Abs Lymphs (Manual) Lymphocytes # (Manual) Monocytes # (Manual) PT INR APTT Fibrinogen POC ABG pH POC ABG pCO2 POC ABG pO2 VBG pH Sodium Potassium Chloride Carbon Dioxide BUN Creatinine Glucose POC Glucose Lactic Acid 5.90 H* 8.30 H* Calcium Phosphorus Magnesium Iron Ferritin Total Bilirubin Direct Bilirubin Alkaline Phosphatase Lactate Dehydrogenase Total Creatine Kinase NT-Pro-B Natriuret Pep Total Protein Albumin Triglycerides Vitamin B12 Folate Urine WBC (Auto) 86.0 H Urine Creatinine Urine Total Protein Complement C3 Lymph Enumerat CD4/CD8 Absolute CD3 Count % CD4 Cells Absolute CD4 Count % CD8 Cells HIV-1 RNA PCR copies/ml HIV-1 RNA (PCR) log 03/09/18 03/09/18 03/09/18 14:39 14:39 15:12 WBC RBC Hgb Hct RDW Plt Count Seg Neuts % (Manual) Lymphocytes % (Manual) Monocytes % (Manual) Seg Neutrophils # Man Abs Lymphs (Manual) Lymphocytes # (Manual) Monocytes # (Manual) PT INR APTT Fibrinogen POC ABG pH POC ABG pCO2 POC ABG pO2 VBG pH Sodium Potassium Chloride Carbon Dioxide BUN Creatinine Glucose POC Glucose Lactic Acid 5.90 H* Calcium Phosphorus Magnesium Iron Ferritin Total Bilirubin Direct Bilirubin Alkaline Phosphatase Lactate Dehydrogenase Total Creatine Kinase NT-Pro-B Natriuret Pep Total Protein Albumin Triglycerides Vitamin B12 Folate Urine WBC (Auto) Urine Creatinine 217.1 H 210.7 H Urine Total Protein 820 H Complement C3 Lymph Enumerat CD4/CD8 Absolute CD3 Count % CD4 Cells Absolute CD4 Count % CD8 Cells HIV-1 RNA PCR copies/ml HIV-1 RNA (PCR) log 03/09/18 03/09/18 03/09/18 15:53 18:20 20:39 WBC RBC Hgb Hct RDW Plt Count Seg Neuts % (Manual) Lymphocytes % (Manual) Monocytes % (Manual) Seg Neutrophils # Man Abs Lymphs (Manual) Lymphocytes # (Manual) Monocytes # (Manual) PT INR APTT Fibrinogen POC ABG pH POC ABG pCO2 POC ABG pO2 VBG pH Sodium Potassium Chloride Carbon Dioxide BUN Creatinine Glucose POC Glucose 56 L Lactic Acid 5.10 H* 4.40 H* Calcium Phosphorus Magnesium Iron Ferritin Total Bilirubin Direct Bilirubin Alkaline Phosphatase Lactate Dehydrogenase Total Creatine Kinase NT-Pro-B Natriuret Pep Total Protein Albumin Triglycerides Vitamin B12 Folate Urine WBC (Auto) Urine Creatinine Urine Total Protein Complement C3 Lymph Enumerat CD4/CD8 Absolute CD3 Count % CD4 Cells Absolute CD4 Count % CD8 Cells HIV-1 RNA PCR copies/ml HIV-1 RNA (PCR) log 03/09/18 03/09/18 03/09/18 20:39 21:33 23:08 WBC RBC Hgb Hct RDW Plt Count Seg Neuts % (Manual) Lymphocytes % (Manual) Monocytes % (Manual) Seg Neutrophils # Man Abs Lymphs (Manual) Lymphocytes # (Manual) Monocytes # (Manual) PT INR APTT Fibrinogen POC ABG pH POC ABG pCO2 POC ABG pO2 VBG pH Sodium Potassium Chloride Carbon Dioxide BUN Creatinine Glucose POC Glucose Lactic Acid 4.90 H* 4.10 H* Calcium Phosphorus Magnesium Iron Ferritin Total Bilirubin Direct Bilirubin Alkaline Phosphatase Lactate Dehydrogenase Total Creatine Kinase NT-Pro-B Natriuret Pep Total Protein Albumin Triglycerides Vitamin B12 Folate Urine WBC (Auto) Urine Creatinine Urine Total Protein Complement C3 77 L Lymph Enumerat CD4/CD8 Absolute CD3 Count % CD4 Cells Absolute CD4 Count % CD8 Cells HIV-1 RNA PCR copies/ml HIV-1 RNA (PCR) log 03/10/18 03/10/18 03/10/18 01:00 04:40 04:40 WBC 11.8 H RBC Hgb 11.7 L Hct RDW Plt Count 8 L* Seg Neuts % (Manual) 93.0 H Lymphocytes % (Manual) 4.0 L Monocytes % (Manual) Seg Neutrophils # Man 11.0 H Abs Lymphs (Manual) Lymphocytes # (Manual) 0.5 L Monocytes # (Manual) PT INR APTT Fibrinogen POC ABG pH POC ABG pCO2 POC ABG pO2 VBG pH Sodium 136 L Potassium Chloride 96.6 L Carbon Dioxide 21 L BUN 62 H Creatinine 4.9 H Glucose POC Glucose Lactic Acid 4.10 H* Calcium 6.2 L D Phosphorus Magnesium Iron Ferritin Total Bilirubin Direct Bilirubin Alkaline Phosphatase Lactate Dehydrogenase Total Creatine Kinase NT-Pro-B Natriuret Pep Total Protein Albumin Triglycerides Vitamin B12 Folate Urine WBC (Auto) Urine Creatinine Urine Total Protein Complement C3 Lymph Enumerat CD4/CD8 Absolute CD3 Count % CD4 Cells Absolute CD4 Count % CD8 Cells HIV-1 RNA PCR copies/ml HIV-1 RNA (PCR) log 03/10/18 03/10/18 03/10/18 05:32 06:00 09:10 WBC RBC Hgb Hct RDW Plt Count Seg Neuts % (Manual) Lymphocytes % (Manual) Monocytes % (Manual) Seg Neutrophils # Man Abs Lymphs (Manual) Lymphocytes # (Manual) Monocytes # (Manual) PT INR APTT Fibrinogen POC ABG pH 7.254 L POC ABG pCO2 47.8 H POC ABG pO2 59 L VBG pH Sodium Potassium Chloride Carbon Dioxide BUN Creatinine Glucose POC Glucose 56 L Lactic Acid Calcium Phosphorus Magnesium Iron Ferritin Total Bilirubin Direct Bilirubin Alkaline Phosphatase Lactate Dehydrogenase Total Creatine Kinase NT-Pro-B Natriuret Pep Total Protein Albumin Triglycerides Vitamin B12 Folate Urine WBC (Auto) 32.0 H Urine Creatinine Urine Total Protein Complement C3 Lymph Enumerat CD4/CD8 Absolute CD3 Count % CD4 Cells Absolute CD4 Count % CD8 Cells HIV-1 RNA PCR copies/ml HIV-1 RNA (PCR) log 03/10/18 03/10/18 03/10/18 09:14 11:16 11:16 WBC RBC Hgb Hct RDW Plt Count Seg Neuts % (Manual) Lymphocytes % (Manual) Monocytes % (Manual) Seg Neutrophils # Man Abs Lymphs (Manual) Lymphocytes # (Manual) Monocytes # (Manual) PT INR APTT Fibrinogen POC ABG pH 7.266 L POC ABG pCO2 POC ABG pO2 VBG pH Sodium Potassium Chloride Carbon Dioxide BUN Creatinine Glucose POC Glucose Lactic Acid Calcium Phosphorus Magnesium Iron Ferritin Total Bilirubin Direct Bilirubin Alkaline Phosphatase Lactate Dehydrogenase 338 H Total Creatine Kinase 404 H NT-Pro-B Natriuret Pep 67063 H Total Protein Albumin Triglycerides Vitamin B12 Folate Urine WBC (Auto) Urine Creatinine Urine Total Protein Complement C3 Lymph Enumerat CD4/CD8 Absolute CD3 Count % CD4 Cells Absolute CD4 Count % CD8 Cells HIV-1 RNA PCR copies/ml HIV-1 RNA (PCR) log 03/10/18 03/10/18 03/10/18 11:51 18:15 18:15 WBC RBC Hgb Hct RDW Plt Count Seg Neuts % (Manual) Lymphocytes % (Manual) Monocytes % (Manual) Seg Neutrophils # Man Abs Lymphs (Manual) Lymphocytes # (Manual) Monocytes # (Manual) PT 17.2 H 17.0 H INR 1.36 H 1.34 H APTT 38.5 H Fibrinogen 852 H POC ABG pH POC ABG pCO2 POC ABG pO2 VBG pH Sodium Potassium Chloride Carbon Dioxide BUN Creatinine Glucose POC Glucose 109 H Lactic Acid Calcium Phosphorus Magnesium Iron Ferritin Total Bilirubin Direct Bilirubin Alkaline Phosphatase Lactate Dehydrogenase Total Creatine Kinase NT-Pro-B Natriuret Pep Total Protein Albumin Triglycerides Vitamin B12 Folate Urine WBC (Auto) Urine Creatinine Urine Total Protein Complement C3 Lymph Enumerat CD4/CD8 Absolute CD3 Count % CD4 Cells Absolute CD4 Count % CD8 Cells HIV-1 RNA PCR copies/ml HIV-1 RNA (PCR) log 03/10/18 03/10/18 03/10/18 18:15 18:15 19:45 WBC RBC Hgb Hct RDW Plt Count Seg Neuts % (Manual) Lymphocytes % (Manual) Monocytes % (Manual) Seg Neutrophils # Man Abs Lymphs (Manual) 779 L Lymphocytes # (Manual) Monocytes # (Manual) PT INR APTT Fibrinogen POC ABG pH POC ABG pCO2 POC ABG pO2 VBG pH Sodium Potassium Chloride Carbon Dioxide BUN Creatinine Glucose POC Glucose 136 H Lactic Acid Calcium Phosphorus Magnesium Iron Ferritin Total Bilirubin Direct Bilirubin Alkaline Phosphatase Lactate Dehydrogenase Total Creatine Kinase NT-Pro-B Natriuret Pep Total Protein Albumin Triglycerides Vitamin B12 Folate Urine WBC (Auto) Urine Creatinine Urine Total Protein Complement C3 Lymph Enumerat CD4/CD8 0.56 L Absolute CD3 Count 524 L % CD4 Cells 24 L Absolute CD4 Count 194 L % CD8 Cells 43 H HIV-1 RNA PCR copies/ml 69038 H HIV-1 RNA (PCR) log 4.71 H 03/10/18 03/10/18 03/10/18 20:40 22:07 23:06 WBC RBC Hgb Hct RDW Plt Count Seg Neuts % (Manual) Lymphocytes % (Manual) Monocytes % (Manual) Seg Neutrophils # Man Abs Lymphs (Manual) Lymphocytes # (Manual) Monocytes # (Manual) PT INR APTT Fibrinogen POC ABG pH POC ABG pCO2 POC ABG pO2 VBG pH Sodium Potassium Chloride Carbon Dioxide BUN Creatinine Glucose POC Glucose 135 H 135 H 133 H Lactic Acid Calcium Phosphorus Magnesium Iron Ferritin Total Bilirubin Direct Bilirubin Alkaline Phosphatase Lactate Dehydrogenase Total Creatine Kinase NT-Pro-B Natriuret Pep Total Protein Albumin Triglycerides Vitamin B12 Folate Urine WBC (Auto) Urine Creatinine Urine Total Protein Complement C3 Lymph Enumerat CD4/CD8 Absolute CD3 Count % CD4 Cells Absolute CD4 Count % CD8 Cells HIV-1 RNA PCR copies/ml HIV-1 RNA (PCR) log 03/11/18 03/11/18 03/11/18 00:07 02:01 03:10 WBC RBC Hgb Hct RDW Plt Count Seg Neuts % (Manual) Lymphocytes % (Manual) Monocytes % (Manual) Seg Neutrophils # Man Abs Lymphs (Manual) Lymphocytes # (Manual) Monocytes # (Manual) PT INR APTT Fibrinogen POC ABG pH POC ABG pCO2 POC ABG pO2 VBG pH Sodium Potassium Chloride Carbon Dioxide BUN Creatinine Glucose POC Glucose 148 H 161 H 189 H Lactic Acid Calcium Phosphorus Magnesium Iron Ferritin Total Bilirubin Direct Bilirubin Alkaline Phosphatase Lactate Dehydrogenase Total Creatine Kinase NT-Pro-B Natriuret Pep Total Protein Albumin Triglycerides Vitamin B12 Folate Urine WBC (Auto) Urine Creatinine Urine Total Protein Complement C3 Lymph Enumerat CD4/CD8 Absolute CD3 Count % CD4 Cells Absolute CD4 Count % CD8 Cells HIV-1 RNA PCR copies/ml HIV-1 RNA (PCR) log 03/11/18 03/11/18 03/11/18 04:12 04:50 04:50 WBC 12.8 H RBC Hgb 10.9 L Hct 32.5 L RDW 15.3 H Plt Count 17 L* D Seg Neuts % (Manual) 96.0 H Lymphocytes % (Manual) 2.0 L Monocytes % (Manual) Seg Neutrophils # Man 12.3 H Abs Lymphs (Manual) Lymphocytes # (Manual) 0.3 L Monocytes # (Manual) PT INR APTT Fibrinogen POC ABG pH POC ABG pCO2 POC ABG pO2 VBG pH Sodium Potassium Chloride 94.2 L Carbon Dioxide BUN 62 H Creatinine 2.7 H Glucose 191 H POC Glucose 188 H Lactic Acid Calcium 7.9 L D Phosphorus Magnesium Iron Ferritin Total Bilirubin Direct Bilirubin Alkaline Phosphatase Lactate Dehydrogenase Total Creatine Kinase NT-Pro-B Natriuret Pep Total Protein Albumin Triglycerides Vitamin B12 Folate Urine WBC (Auto) Urine Creatinine Urine Total Protein Complement C3 Lymph Enumerat CD4/CD8 Absolute CD3 Count % CD4 Cells Absolute CD4 Count % CD8 Cells HIV-1 RNA PCR copies/ml HIV-1 RNA (PCR) log 03/11/18 03/11/18 03/11/18 05:30 05:33 07:47 WBC RBC Hgb Hct RDW Plt Count Seg Neuts % (Manual) Lymphocytes % (Manual) Monocytes % (Manual) Seg Neutrophils # Man Abs Lymphs (Manual) Lymphocytes # (Manual) Monocytes # (Manual) PT INR APTT Fibrinogen POC ABG pH POC ABG pCO2 POC ABG pO2 58 L VBG pH Sodium Potassium Chloride Carbon Dioxide BUN Creatinine Glucose POC Glucose 187 H 151 H Lactic Acid Calcium Phosphorus Magnesium Iron Ferritin Total Bilirubin Direct Bilirubin Alkaline Phosphatase Lactate Dehydrogenase Total Creatine Kinase NT-Pro-B Natriuret Pep Total Protein Albumin Triglycerides Vitamin B12 Folate Urine WBC (Auto) Urine Creatinine Urine Total Protein Complement C3 Lymph Enumerat CD4/CD8 Absolute CD3 Count % CD4 Cells Absolute CD4 Count % CD8 Cells HIV-1 RNA PCR copies/ml HIV-1 RNA (PCR) log 03/11/18 03/11/18 03/11/18 12:11 13:18 14:26 WBC RBC Hgb Hct RDW Plt Count Seg Neuts % (Manual) Lymphocytes % (Manual) Monocytes % (Manual) Seg Neutrophils # Man Abs Lymphs (Manual) Lymphocytes # (Manual) Monocytes # (Manual) PT INR APTT Fibrinogen POC ABG pH POC ABG pCO2 POC ABG pO2 VBG pH Sodium Potassium Chloride Carbon Dioxide BUN Creatinine Glucose POC Glucose 166 H 157 H 145 H Lactic Acid Calcium Phosphorus Magnesium Iron Ferritin Total Bilirubin Direct Bilirubin Alkaline Phosphatase Lactate Dehydrogenase Total Creatine Kinase NT-Pro-B Natriuret Pep Total Protein Albumin Triglycerides Vitamin B12 Folate Urine WBC (Auto) Urine Creatinine Urine Total Protein Complement C3 Lymph Enumerat CD4/CD8 Absolute CD3 Count % CD4 Cells Absolute CD4 Count % CD8 Cells HIV-1 RNA PCR copies/ml HIV-1 RNA (PCR) log 03/11/18 03/11/18 03/11/18 14:48 15:15 16:17 WBC 21.2 H RBC Hgb 11.0 L Hct 33.8 L RDW Plt Count 15 L* Seg Neuts % (Manual) 92.0 H Lymphocytes % (Manual) 4.0 L Monocytes % (Manual) Seg Neutrophils # Man 19.5 H Abs Lymphs (Manual) Lymphocytes # (Manual) 0.8 L Monocytes # (Manual) PT INR APTT Fibrinogen POC ABG pH POC ABG pCO2 POC ABG pO2 VBG pH Sodium Potassium Chloride Carbon Dioxide BUN Creatinine Glucose POC Glucose 139 H 145 H Lactic Acid Calcium Phosphorus Magnesium Iron Ferritin Total Bilirubin Direct Bilirubin Alkaline Phosphatase Lactate Dehydrogenase Total Creatine Kinase NT-Pro-B Natriuret Pep Total Protein Albumin Triglycerides Vitamin B12 Folate Urine WBC (Auto) Urine Creatinine Urine Total Protein Complement C3 Lymph Enumerat CD4/CD8 Absolute CD3 Count % CD4 Cells Absolute CD4 Count % CD8 Cells HIV-1 RNA PCR copies/ml HIV-1 RNA (PCR) log 03/11/18 03/11/18 03/11/18 17:48 20:16 21:02 WBC RBC Hgb Hct RDW Plt Count Seg Neuts % (Manual) Lymphocytes % (Manual) Monocytes % (Manual) Seg Neutrophils # Man Abs Lymphs (Manual) Lymphocytes # (Manual) Monocytes # (Manual) PT INR APTT Fibrinogen POC ABG pH POC ABG pCO2 POC ABG pO2 VBG pH Sodium Potassium Chloride Carbon Dioxide BUN Creatinine Glucose POC Glucose 142 H 158 H 146 H Lactic Acid Calcium Phosphorus Magnesium Iron Ferritin Total Bilirubin Direct Bilirubin Alkaline Phosphatase Lactate Dehydrogenase Total Creatine Kinase NT-Pro-B Natriuret Pep Total Protein Albumin Triglycerides Vitamin B12 Folate Urine WBC (Auto) Urine Creatinine Urine Total Protein Complement C3 Lymph Enumerat CD4/CD8 Absolute CD3 Count % CD4 Cells Absolute CD4 Count % CD8 Cells HIV-1 RNA PCR copies/ml HIV-1 RNA (PCR) log 03/11/18 03/12/18 03/12/18 23:14 00:54 06:19 WBC 29.6 H RBC Hgb 10.6 L Hct 31.3 L RDW Plt Count 51 L D Seg Neuts % (Manual) Lymphocytes % (Manual) Monocytes % (Manual) Seg Neutrophils # Man Abs Lymphs (Manual) Lymphocytes # (Manual) Monocytes # (Manual) PT INR APTT Fibrinogen POC ABG pH POC ABG pCO2 POC ABG pO2 VBG pH Sodium Potassium Chloride Carbon Dioxide BUN Creatinine Glucose POC Glucose 168 H 185 H Lactic Acid Calcium Phosphorus Magnesium Iron Ferritin Total Bilirubin Direct Bilirubin Alkaline Phosphatase Lactate Dehydrogenase Total Creatine Kinase NT-Pro-B Natriuret Pep Total Protein Albumin Triglycerides Vitamin B12 Folate Urine WBC (Auto) Urine Creatinine Urine Total Protein Complement C3 Lymph Enumerat CD4/CD8 Absolute CD3 Count % CD4 Cells Absolute CD4 Count % CD8 Cells HIV-1 RNA PCR copies/ml HIV-1 RNA (PCR) log 03/12/18 03/12/18 03/12/18 06:29 06:29 06:29 WBC 32.7 H RBC Hgb 10.5 L Hct 31.7 L RDW 15.3 H Plt Count 34 L Seg Neuts % (Manual) 81.5 H Lymphocytes % (Manual) 7.0 L Monocytes % (Manual) 7.5 H Seg Neutrophils # Man 26.7 H Abs Lymphs (Manual) Lymphocytes # (Manual) Monocytes # (Manual) 2.5 H PT INR APTT Fibrinogen POC ABG pH POC ABG pCO2 POC ABG pO2 VBG pH Sodium Potassium 3.4 L Chloride Carbon Dioxide BUN 69 H Creatinine 2.2 H Glucose 181 H POC Glucose Lactic Acid Calcium Phosphorus Magnesium Iron Ferritin Total Bilirubin 2.30 H Direct Bilirubin 1.5 H Alkaline Phosphatase Lactate Dehydrogenase Total Creatine Kinase NT-Pro-B Natriuret Pep Total Protein 6.2 L Albumin 3.1 L Triglycerides Vitamin B12 Folate Urine WBC (Auto) Urine Creatinine Urine Total Protein Complement C3 Lymph Enumerat CD4/CD8 Absolute CD3 Count % CD4 Cells Absolute CD4 Count % CD8 Cells HIV-1 RNA PCR copies/ml HIV-1 RNA (PCR) log 03/12/18 03/12/18 03/12/18 07:21 07:44 10:16 WBC RBC Hgb Hct RDW Plt Count Seg Neuts % (Manual) Lymphocytes % (Manual) Monocytes % (Manual) Seg Neutrophils # Man Abs Lymphs (Manual) Lymphocytes # (Manual) Monocytes # (Manual) PT INR APTT Fibrinogen POC ABG pH 7.337 L POC ABG pCO2 54.9 H POC ABG pO2 59 L VBG pH Sodium Potassium Chloride Carbon Dioxide BUN Creatinine Glucose POC Glucose 157 H 153 H Lactic Acid Calcium Phosphorus Magnesium Iron Ferritin Total Bilirubin Direct Bilirubin Alkaline Phosphatase Lactate Dehydrogenase Total Creatine Kinase NT-Pro-B Natriuret Pep Total Protein Albumin Triglycerides Vitamin B12 Folate Urine WBC (Auto) Urine Creatinine Urine Total Protein Complement C3 Lymph Enumerat CD4/CD8 Absolute CD3 Count % CD4 Cells Absolute CD4 Count % CD8 Cells HIV-1 RNA PCR copies/ml HIV-1 RNA (PCR) log 03/12/18 03/12/18 03/12/18 12:53 15:22 18:17 WBC RBC Hgb Hct RDW Plt Count Seg Neuts % (Manual) Lymphocytes % (Manual) Monocytes % (Manual) Seg Neutrophils # Man Abs Lymphs (Manual) Lymphocytes # (Manual) Monocytes # (Manual) PT INR APTT Fibrinogen POC ABG pH POC ABG pCO2 61.7 H POC ABG pO2 110 H VBG pH Sodium Potassium Chloride Carbon Dioxide BUN Creatinine Glucose POC Glucose 148 H 148 H Lactic Acid Calcium Phosphorus Magnesium Iron Ferritin Total Bilirubin Direct Bilirubin Alkaline Phosphatase Lactate Dehydrogenase Total Creatine Kinase NT-Pro-B Natriuret Pep Total Protein Albumin Triglycerides Vitamin B12 Folate Urine WBC (Auto) Urine Creatinine Urine Total Protein Complement C3 Lymph Enumerat CD4/CD8 Absolute CD3 Count % CD4 Cells Absolute CD4 Count % CD8 Cells HIV-1 RNA PCR copies/ml HIV-1 RNA (PCR) log 03/12/18 03/13/18 03/13/18 21:34 01:14 04:37 WBC RBC Hgb Hct RDW Plt Count Seg Neuts % (Manual) Lymphocytes % (Manual) Monocytes % (Manual) Seg Neutrophils # Man Abs Lymphs (Manual) Lymphocytes # (Manual) Monocytes # (Manual) PT INR APTT Fibrinogen POC ABG pH POC ABG pCO2 60.2 H POC ABG pO2 115 H VBG pH Sodium Potassium Chloride Carbon Dioxide BUN Creatinine Glucose POC Glucose 161 H 187 H Lactic Acid Calcium Phosphorus Magnesium Iron Ferritin Total Bilirubin Direct Bilirubin Alkaline Phosphatase Lactate Dehydrogenase Total Creatine Kinase NT-Pro-B Natriuret Pep Total Protein Albumin Triglycerides Vitamin B12 Folate Urine WBC (Auto) Urine Creatinine Urine Total Protein Complement C3 Lymph Enumerat CD4/CD8 Absolute CD3 Count % CD4 Cells Absolute CD4 Count % CD8 Cells HIV-1 RNA PCR copies/ml HIV-1 RNA (PCR) log 03/13/18 03/13/18 03/13/18 05:22 05:22 08:24 WBC 30.4 H RBC 3.45 L Hgb 9.8 L Hct 29.7 L RDW Plt Count 37 L Seg Neuts % (Manual) 75.5 H Lymphocytes % (Manual) 3.0 L Monocytes % (Manual) Seg Neutrophils # Man 23.0 H Abs Lymphs (Manual) Lymphocytes # (Manual) 0.9 L Monocytes # (Manual) PT INR APTT Fibrinogen POC ABG pH POC ABG pCO2 POC ABG pO2 VBG pH Sodium 146 H Potassium Chloride Carbon Dioxide 35 H D BUN 71 H Creatinine 1.7 H Glucose 187 H POC Glucose 210 H Lactic Acid Calcium Phosphorus Magnesium Iron Ferritin Total Bilirubin Direct Bilirubin Alkaline Phosphatase Lactate Dehydrogenase Total Creatine Kinase NT-Pro-B Natriuret Pep Total Protein Albumin Triglycerides Vitamin B12 Folate Urine WBC (Auto) Urine Creatinine Urine Total Protein Complement C3 Lymph Enumerat CD4/CD8 Absolute CD3 Count % CD4 Cells Absolute CD4 Count % CD8 Cells HIV-1 RNA PCR copies/ml HIV-1 RNA (PCR) log 03/13/18 03/13/18 03/13/18 12:22 12:44 17:27 WBC RBC Hgb Hct RDW Plt Count Seg Neuts % (Manual) Lymphocytes % (Manual) Monocytes % (Manual) Seg Neutrophils # Man Abs Lymphs (Manual) Lymphocytes # (Manual) Monocytes # (Manual) PT INR APTT Fibrinogen POC ABG pH POC ABG pCO2 POC ABG pO2 VBG pH Sodium Potassium Chloride Carbon Dioxide BUN Creatinine Glucose POC Glucose 208 H 169 H Lactic Acid Calcium Phosphorus Magnesium 3.00 H Iron Ferritin Total Bilirubin Direct Bilirubin Alkaline Phosphatase Lactate Dehydrogenase Total Creatine Kinase NT-Pro-B Natriuret Pep Total Protein Albumin Triglycerides Vitamin B12 Folate Urine WBC (Auto) Urine Creatinine Urine Total Protein Complement C3 Lymph Enumerat CD4/CD8 Absolute CD3 Count % CD4 Cells Absolute CD4 Count % CD8 Cells HIV-1 RNA PCR copies/ml HIV-1 RNA (PCR) log 03/13/18 03/14/18 03/14/18 23:35 04:29 05:23 WBC RBC Hgb Hct RDW Plt Count Seg Neuts % (Manual) Lymphocytes % (Manual) Monocytes % (Manual) Seg Neutrophils # Man Abs Lymphs (Manual) Lymphocytes # (Manual) Monocytes # (Manual) PT INR APTT Fibrinogen POC ABG pH 7.502 H POC ABG pCO2 53.2 H POC ABG pO2 VBG pH Sodium Potassium Chloride Carbon Dioxide BUN Creatinine Glucose POC Glucose 256 H 212 H Lactic Acid Calcium Phosphorus Magnesium Iron Ferritin Total Bilirubin Direct Bilirubin Alkaline Phosphatase Lactate Dehydrogenase Total Creatine Kinase NT-Pro-B Natriuret Pep Total Protein Albumin Triglycerides Vitamin B12 Folate Urine WBC (Auto) Urine Creatinine Urine Total Protein Complement C3 Lymph Enumerat CD4/CD8 Absolute CD3 Count % CD4 Cells Absolute CD4 Count % CD8 Cells HIV-1 RNA PCR copies/ml HIV-1 RNA (PCR) log 03/14/18 03/14/18 03/14/18 06:00 06:00 06:00 WBC 27.3 H RBC 3.52 L Hgb 10.0 L Hct 30.8 L RDW Plt Count 50 L Seg Neuts % (Manual) 87.0 H Lymphocytes % (Manual) 3.0 L Monocytes % (Manual) Seg Neutrophils # Man 23.8 H Abs Lymphs (Manual) Lymphocytes # (Manual) 0.8 L Monocytes # (Manual) 1.6 H PT INR APTT Fibrinogen POC ABG pH POC ABG pCO2 POC ABG pO2 VBG pH Sodium 156 H D Potassium Chloride 109.5 H Carbon Dioxide 37 H BUN 70 H Creatinine Glucose 202 H POC Glucose Lactic Acid Calcium Phosphorus Magnesium Iron Ferritin Total Bilirubin Direct Bilirubin Alkaline Phosphatase Lactate Dehydrogenase Total Creatine Kinase 17 L NT-Pro-B Natriuret Pep Total Protein Albumin Triglycerides Vitamin B12 Folate Urine WBC (Auto) Urine Creatinine Urine Total Protein Complement C3 Lymph Enumerat CD4/CD8 Absolute CD3 Count % CD4 Cells Absolute CD4 Count % CD8 Cells HIV-1 RNA PCR copies/ml HIV-1 RNA (PCR) log 03/14/18 03/14/18 03/14/18 07:00 07:00 07:00 WBC RBC Hgb Hct RDW Plt Count Seg Neuts % (Manual) Lymphocytes % (Manual) Monocytes % (Manual) Seg Neutrophils # Man Abs Lymphs (Manual) Lymphocytes # (Manual) Monocytes # (Manual) PT INR APTT Fibrinogen POC ABG pH POC ABG pCO2 POC ABG pO2 VBG pH Sodium Potassium Chloride Carbon Dioxide BUN Creatinine Glucose POC Glucose Lactic Acid Calcium Phosphorus Magnesium Iron 42 L Ferritin 532.4 H Total Bilirubin Direct Bilirubin Alkaline Phosphatase Lactate Dehydrogenase Total Creatine Kinase NT-Pro-B Natriuret Pep Total Protein Albumin Triglycerides Vitamin B12 1825 H Folate Urine WBC (Auto) Urine Creatinine Urine Total Protein Complement C3 Lymph Enumerat CD4/CD8 Absolute CD3 Count % CD4 Cells Absolute CD4 Count % CD8 Cells HIV-1 RNA PCR copies/ml HIV-1 RNA (PCR) log 03/14/18 03/14/18 03/14/18 07:00 07:00 13:01 WBC RBC Hgb Hct RDW Plt Count Seg Neuts % (Manual) Lymphocytes % (Manual) Monocytes % (Manual) Seg Neutrophils # Man Abs Lymphs (Manual) Lymphocytes # (Manual) Monocytes # (Manual) PT INR APTT Fibrinogen POC ABG pH POC ABG pCO2 POC ABG pO2 VBG pH Sodium Potassium Chloride Carbon Dioxide BUN Creatinine Glucose POC Glucose 201 H Lactic Acid Calcium Phosphorus Magnesium Iron Ferritin Total Bilirubin Direct Bilirubin Alkaline Phosphatase Lactate Dehydrogenase Total Creatine Kinase NT-Pro-B Natriuret Pep Total Protein Albumin Triglycerides 532 H Vitamin B12 Folate 6.29 L Urine WBC (Auto) Urine Creatinine Urine Total Protein Complement C3 Lymph Enumerat CD4/CD8 Absolute CD3 Count % CD4 Cells Absolute CD4 Count % CD8 Cells HIV-1 RNA PCR copies/ml HIV-1 RNA (PCR) log 03/14/18 03/14/18 03/14/18 17:37 21:04 23:30 WBC RBC Hgb Hct RDW Plt Count Seg Neuts % (Manual) Lymphocytes % (Manual) Monocytes % (Manual) Seg Neutrophils # Man Abs Lymphs (Manual) Lymphocytes # (Manual) Monocytes # (Manual) PT INR APTT Fibrinogen POC ABG pH POC ABG pCO2 POC ABG pO2 VBG pH Sodium 155 H Potassium Chloride 114.1 H Carbon Dioxide 33 H BUN 58 H Creatinine Glucose 166 H POC Glucose 179 H 167 H Lactic Acid Calcium Phosphorus Magnesium Iron Ferritin Total Bilirubin Direct Bilirubin Alkaline Phosphatase Lactate Dehydrogenase Total Creatine Kinase NT-Pro-B Natriuret Pep Total Protein Albumin Triglycerides Vitamin B12 Folate Urine WBC (Auto) Urine Creatinine Urine Total Protein Complement C3 Lymph Enumerat CD4/CD8 Absolute CD3 Count % CD4 Cells Absolute CD4 Count % CD8 Cells HIV-1 RNA PCR copies/ml HIV-1 RNA (PCR) log 03/15/18 03/15/18 03/15/18 04:44 04:44 04:44 WBC 26.0 H RBC Hgb 10.5 L Hct 33.0 L RDW Plt Count 70 L Seg Neuts % (Manual) 91.0 H Lymphocytes % (Manual) 6.0 L Monocytes % (Manual) Seg Neutrophils # Man 23.7 H Abs Lymphs (Manual) Lymphocytes # (Manual) Monocytes # (Manual) PT INR APTT Fibrinogen POC ABG pH POC ABG pCO2 POC ABG pO2 VBG pH Sodium 155 H Potassium Chloride 114.3 H Carbon Dioxide 31 H BUN 51 H Creatinine Glucose 173 H POC Glucose Lactic Acid Calcium Phosphorus Magnesium 2.80 H Iron Ferritin Total Bilirubin Direct Bilirubin Alkaline Phosphatase Lactate Dehydrogenase Total Creatine Kinase NT-Pro-B Natriuret Pep Total Protein Albumin Triglycerides Vitamin B12 Folate Urine WBC (Auto) Urine Creatinine Urine Total Protein Complement C3 Lymph Enumerat CD4/CD8 Absolute CD3 Count % CD4 Cells Absolute CD4 Count % CD8 Cells HIV-1 RNA PCR copies/ml HIV-1 RNA (PCR) log 03/15/18 03/15/18 03/15/18 04:53 06:36 17:25 WBC RBC Hgb Hct RDW Plt Count Seg Neuts % (Manual) Lymphocytes % (Manual) Monocytes % (Manual) Seg Neutrophils # Man Abs Lymphs (Manual) Lymphocytes # (Manual) Monocytes # (Manual) PT INR APTT Fibrinogen POC ABG pH POC ABG pCO2 59.0 H POC ABG pO2 112 H VBG pH Sodium Potassium Chloride Carbon Dioxide BUN Creatinine Glucose POC Glucose 199 H 138 H Lactic Acid Calcium Phosphorus Magnesium Iron Ferritin Total Bilirubin Direct Bilirubin Alkaline Phosphatase Lactate Dehydrogenase Total Creatine Kinase NT-Pro-B Natriuret Pep Total Protein Albumin Triglycerides Vitamin B12 Folate Urine WBC (Auto) Urine Creatinine Urine Total Protein Complement C3 Lymph Enumerat CD4/CD8 Absolute CD3 Count % CD4 Cells Absolute CD4 Count % CD8 Cells HIV-1 RNA PCR copies/ml HIV-1 RNA (PCR) log 03/15/18 03/16/18 03/16/18 23:20 03:59 05:01 WBC 21.9 H RBC Hgb 10.3 L Hct 32.5 L RDW Plt Count 88 L Seg Neuts % (Manual) 98.0 H Lymphocytes % (Manual) 2.0 L Monocytes % (Manual) Seg Neutrophils # Man 21.5 H Abs Lymphs (Manual) Lymphocytes # (Manual) 0.4 L Monocytes # (Manual) PT INR APTT Fibrinogen POC ABG pH POC ABG pCO2 46.6 H POC ABG pO2 50 L VBG pH Sodium Potassium Chloride Carbon Dioxide BUN Creatinine Glucose POC Glucose 182 H Lactic Acid Calcium Phosphorus Magnesium Iron Ferritin Total Bilirubin Direct Bilirubin Alkaline Phosphatase Lactate Dehydrogenase Total Creatine Kinase NT-Pro-B Natriuret Pep Total Protein Albumin Triglycerides Vitamin B12 Folate Urine WBC (Auto) Urine Creatinine Urine Total Protein Complement C3 Lymph Enumerat CD4/CD8 Absolute CD3 Count % CD4 Cells Absolute CD4 Count % CD8 Cells HIV-1 RNA PCR copies/ml HIV-1 RNA (PCR) log 03/16/18 03/16/18 03/16/18 05:01 05:01 05:29 WBC RBC Hgb Hct RDW Plt Count Seg Neuts % (Manual) Lymphocytes % (Manual) Monocytes % (Manual) Seg Neutrophils # Man Abs Lymphs (Manual) Lymphocytes # (Manual) Monocytes # (Manual) PT INR APTT Fibrinogen POC ABG pH POC ABG pCO2 POC ABG pO2 VBG pH Sodium 148 H Potassium 5.7 H Chloride 112.1 H Carbon Dioxide BUN 41 H Creatinine Glucose 234 H POC Glucose 257 H Lactic Acid Calcium Phosphorus Magnesium Iron Ferritin Total Bilirubin Direct Bilirubin Alkaline Phosphatase Lactate Dehydrogenase Total Creatine Kinase NT-Pro-B Natriuret Pep Total Protein Albumin Triglycerides 212 H Vitamin B12 Folate Urine WBC (Auto) Urine Creatinine Urine Total Protein Complement C3 Lymph Enumerat CD4/CD8 Absolute CD3 Count % CD4 Cells Absolute CD4 Count % CD8 Cells HIV-1 RNA PCR copies/ml HIV-1 RNA (PCR) log 03/16/18 03/16/18 03/16/18 11:30 15:56 17:28 WBC RBC Hgb Hct RDW Plt Count Seg Neuts % (Manual) Lymphocytes % (Manual) Monocytes % (Manual) Seg Neutrophils # Man Abs Lymphs (Manual) Lymphocytes # (Manual) Monocytes # (Manual) PT INR APTT Fibrinogen POC ABG pH POC ABG pCO2 POC ABG pO2 VBG pH Sodium Potassium 5.5 H Chloride Carbon Dioxide BUN 39 H Creatinine Glucose 186 H POC Glucose 186 H 153 H Lactic Acid Calcium Phosphorus Magnesium Iron Ferritin Total Bilirubin Direct Bilirubin Alkaline Phosphatase Lactate Dehydrogenase Total Creatine Kinase NT-Pro-B Natriuret Pep Total Protein Albumin Triglycerides Vitamin B12 Folate Urine WBC (Auto) Urine Creatinine Urine Total Protein Complement C3 Lymph Enumerat CD4/CD8 Absolute CD3 Count % CD4 Cells Absolute CD4 Count % CD8 Cells HIV-1 RNA PCR copies/ml HIV-1 RNA (PCR) log 03/16/18 03/17/18 03/17/18 23:48 04:25 04:25 WBC 13.9 H RBC 2.89 L Hgb 8.2 L Hct 27.8 L RDW Plt Count 85 L Seg Neuts % (Manual) 88.0 H Lymphocytes % (Manual) 4.0 L Monocytes % (Manual) Seg Neutrophils # Man 12.2 H Abs Lymphs (Manual) Lymphocytes # (Manual) 0.6 L Monocytes # (Manual) PT INR APTT Fibrinogen POC ABG pH POC ABG pCO2 POC ABG pO2 VBG pH Sodium Potassium 5.7 H Chloride 107.5 H Carbon Dioxide BUN 38 H Creatinine Glucose 165 H POC Glucose 131 H Lactic Acid Calcium Phosphorus Magnesium Iron Ferritin Total Bilirubin Direct Bilirubin Alkaline Phosphatase Lactate Dehydrogenase Total Creatine Kinase NT-Pro-B Natriuret Pep Total Protein Albumin Triglycerides Vitamin B12 Folate Urine WBC (Auto) Urine Creatinine Urine Total Protein Complement C3 Lymph Enumerat CD4/CD8 Absolute CD3 Count % CD4 Cells Absolute CD4 Count % CD8 Cells HIV-1 RNA PCR copies/ml HIV-1 RNA (PCR) log 03/17/18 03/17/18 04:51 05:39 WBC RBC Hgb Hct RDW Plt Count Seg Neuts % (Manual) Lymphocytes % (Manual) Monocytes % (Manual) Seg Neutrophils # Man Abs Lymphs (Manual) Lymphocytes # (Manual) Monocytes # (Manual) PT INR APTT Fibrinogen POC ABG pH POC ABG pCO2 45.4 H POC ABG pO2 174 H VBG pH Sodium Potassium Chloride Carbon Dioxide BUN Creatinine Glucose POC Glucose 140 H Lactic Acid Calcium Phosphorus Magnesium Iron Ferritin Total Bilirubin Direct Bilirubin Alkaline Phosphatase Lactate Dehydrogenase Total Creatine Kinase NT-Pro-B Natriuret Pep Total Protein Albumin Triglycerides Vitamin B12 Folate Urine WBC (Auto) Urine Creatinine Urine Total Protein Complement C3 Lymph Enumerat CD4/CD8 Absolute CD3 Count % CD4 Cells Absolute CD4 Count % CD8 Cells HIV-1 RNA PCR copies/ml HIV-1 RNA (PCR) log
[2018-03-17] MEDS ORDERED: KIONEX PO ONE (10:00)
[2018-03-17] MEDS: MAXIPIME/NS 2 GM/100 ML 2 GM/100 ML BAG IV SCH ×2 (10:32→21:22)
[2018-03-17] MEDS: SENOKOT S PO SCH ×2 (10:33→21:19)
[2018-03-17] MEDS: MEPRON PO SCH (10:33)
[2018-03-17] MEDS: FOLVITE PO SCH (10:33)
[2018-03-17] MEDS: PREVACID SOLUTAB FEEDTUBE SCH (10:34)
[2018-03-17] MEDS: SODIUM CHLORIDE FLUSH SYRINGE 10 ML IV SCH ×2 (10:35→21:20)
[2018-03-17] MEDS: DECADRON 20 MG in NACL 0.9% 50 ML IV SCH (10:47)
[2018-03-17] MEDS: MIDAZOLAM 100 MG in NACL 0.9% 80 ML IV SCH (10:55)
--- NOTE | 2018-03-17 11:25 | Progress Note ---
Assessment and Plan Acute renal failure, prerenal azotemia vs. ischemic ATN from hypotension Lactic acidosis hypernatremia Nausea and vomiting, likely gastroenteritis Hyperkalemia Hypocalcemia Dilated Cardiomyopathy Acute Pulmonary Edema Thrombocytopenia Plan: - Cr is stable - hypernatremia resolved, off D5W - cont to have hyperkalemia with elevated phos, will check CK again with LDH and uric acid to r/o high cellular turnover process vs. hemolysis (hgb trending down. ordered lasix with IV insulin and D50W and will repeat BMP ~ 1600 - HIV 1&2 rapid antibody was reactive, ID on board, f/u recs - Cardiology, Hematology, Pulmonology, and ID on board - Off pressors - Renally dose meds - Strict intake and output Subjective Date of service: 03/17/18 Principal diagnosis: Resp failure, atelectasis aspiration,HIV, hyperkalemia,sepsis,low plt Interval history: sedated and intubated Objective - Vital Signs Vital signs: Vital Signs - 12hr 03/16/18 03/16/18 03/16/18 23:30 23:37 23:45 Temperature Pulse Rate 60 60 60 Pulse Rate [ From Monitor] Respiratory 20 20 Rate Blood Pressure 97/54 97/54 99/52 O2 Sat by Pulse 100 57 L 99 Oximetry 03/17/18 03/17/18 03/17/18 00:00 00:15 00:30 Temperature 98.7 F Pulse Rate 54 L 52 L 67 Pulse Rate [ 71 From Monitor] Respiratory 20 19 20 Rate Blood Pressure 95/54 102/58 112/64 O2 Sat by Pulse 98 89 100 Oximetry 03/17/18 03/17/18 03/17/18 00:46 01:00 01:15 Temperature Pulse Rate 69 64 67 Pulse Rate [ From Monitor] Respiratory 16 20 18 Rate Blood Pressure 115/65 115/65 110/54 O2 Sat by Pulse 100 100 100 Oximetry 03/17/18 03/17/18 03/17/18 01:30 01:45 02:00 Temperature Pulse Rate 59 L 61 56 L Pulse Rate [ From Monitor] Respiratory 19 17 20 Rate Blood Pressure 99/52 100/50 100/46 O2 Sat by Pulse 99 99 100 Oximetry 03/17/18 03/17/18 03/17/18 02:15 02:30 02:45 Temperature Pulse Rate 55 L 55 L 55 L Pulse Rate [ From Monitor] Respiratory 19 19 20 Rate Blood Pressure 96/48 99/52 106/67 O2 Sat by Pulse 100 100 100 Oximetry 03/17/18 03/17/18 03/17/18 03:00 03:15 03:30 Temperature Pulse Rate 52 L 53 L 49 L Pulse Rate [ From Monitor] Respiratory 20 20 20 Rate Blood Pressure 97/51 97/51 96/51 O2 Sat by Pulse 100 100 100 Oximetry 03/17/18 03/17/18 03/17/18 03:37 03:45 04:00 Temperature 98.1 F Pulse Rate 50 L 50 L 48 L Pulse Rate [ 48 L From Monitor] Respiratory 20 20 Rate Blood Pressure 69/51 96/52 97/51 O2 Sat by Pulse 49 L 100 100 Oximetry 03/17/18 03/17/18 03/17/18 04:15 04:30 04:46 Temperature Pulse Rate 47 L 49 L 65 Pulse Rate [ From Monitor] Respiratory 20 20 17 Rate Blood Pressure 94/52 98/53 106/58 O2 Sat by Pulse 100 100 99 Oximetry 03/17/18 03/17/18 03/17/18 05:00 05:15 05:30 Temperature Pulse Rate 64 61 61 Pulse Rate [ From Monitor] Respiratory 20 19 15 Rate Blood Pressure 111/67 110/55 120/68 O2 Sat by Pulse 100 100 98 Oximetry 03/17/18 03/17/18 03/17/18 05:46 06:00 06:15 Temperature Pulse Rate 54 L 54 L 52 L Pulse Rate [ From Monitor] Respiratory 12 20 19 Rate Blood Pressure 120/68 110/61 106/59 O2 Sat by Pulse 97 97 91 Oximetry 03/17/18 03/17/18 03/17/18 06:30 06:45 07:00 Temperature Pulse Rate 49 L 54 L 49 L Pulse Rate [ From Monitor] Respiratory 18 19 17 Rate Blood Pressure 112/61 108/60 102/53 O2 Sat by Pulse 89 88 93 Oximetry 03/17/18 03/17/18 03/17/18 07:15 07:30 07:45 Temperature Pulse Rate 49 L 51 L 50 L Pulse Rate [ From Monitor] Respiratory 20 20 20 Rate Blood Pressure 100/57 99/54 98/55 O2 Sat by Pulse 89 86 94 Oximetry 03/17/18 03/17/18 03/17/18 08:00 08:15 08:30 Temperature 98.4 F Pulse Rate 47 L 38 L 49 L Pulse Rate [ 47 L From Monitor] Respiratory 20 18 20 Rate Blood Pressure 101/53 103/54 106/55 O2 Sat by Pulse 89 93 95 Oximetry 03/17/18 03/17/18 03/17/18 08:45 09:00 09:15 Temperature Pulse Rate 44 L 48 L 47 L Pulse Rate [ From Monitor] Respiratory 20 20 20 Rate Blood Pressure 102/55 103/56 101/59 O2 Sat by Pulse 95 93 94 Oximetry 03/17/18 03/17/18 03/17/18 09:30 09:45 10:00 Temperature Pulse Rate 51 L 46 L 47 L Pulse Rate [ From Monitor] Respiratory 20 20 20 Rate Blood Pressure 104/57 104/54 100/53 O2 Sat by Pulse 98 95 91 Oximetry 03/17/18 03/17/18 03/17/18 10:16 10:30 10:46 Temperature Pulse Rate 48 L 85 60 Pulse Rate [ From Monitor] Respiratory 20 12 12 Rate Blood Pressure 104/60 104/60 142/71 O2 Sat by Pulse 98 93 92 Oximetry 03/17/18 03/17/18 11:00 11:15 Temperature Pulse Rate 59 L 52 L Pulse Rate [ From Monitor] Respiratory 15 17 Rate Blood Pressure 111/57 108/61 O2 Sat by Pulse 94 96 Oximetry - General Appearance General appearance: well-developed, well-nourished, intubated EENT: ATNC, PERRL Neck: no JVD, no carotid bruit Respiratory: Present: Rales, Ronchi Cardiology: tachycardia, S1S2 Gastrointestinal: normoactive bowel sounds, no tenderness Integumentary: no rash, warm and dry Neurologic: other (sedated and intubated) Musculoskeletal: other (no edema in BLE) Psychiatric: other (sedated and intubated) - Lab 03/17/18 04:25 03/17/18 04:25 Most recent lab results Calcium 8.4 mg/dL (8.4-10.2) 03/17/18 04:25 Phosphorus 4.10 mg/dL (2.5-4.5) D 03/17/18 04:25 Magnesium 2.00 mg/dL (1.7-2.3) 03/17/18 04:25 Urine Creatinine 210.7 mg/dL (0.1-20.0) H 03/09/18 14:39 Urine Sodium 81 mmol/L 03/14/18 18:50 Urine Total Protein 820 mg/dL (5-11.8) H 03/09/18 14:39 Medications & Allergies - Medications Allergies/Adverse Reactions: Allergies clindamycin Allergy (Verified 03/09/18 06:43) Swelling Home Medications: Home Medications Medication Instructions Recorded Confirmed Last Taken Type No Known Home Medications [No 03/09/18 03/09/18 Unknown History Reported Home Medications] Active Medications: Generic Name Dose Route Start Last Admin Trade Name Freq PRN Reason Stop Dose Admin Lipase/Protease/Amylase 1 each 03/14/18 16:[address] 10,500 Unit FEEDTUBE PRN PRN For Clogged Feeding Tube Atovaquone 1,500 mg 03/11/18 20:00 03/17/18 10:33 Mepron PO 1,500 mg QDAY LIU Administration Clonazepam 0.5 mg 03/17/18 11:00 03/17/18 10:33 Klonopin PO 0.5 mg Q8HR LIU Administration Dextrose 50 ml 03/09/18 16:15 D50w (25gm) Syringe IV PRN PRN HYPOGLYCEMIA Fentanyl 50 mcg 03/14/18 09:44 03/15/18 14:19 Sublimaze IV 50 mcg Q2H PRN Administration Pain , Severe (7-10) Folic Acid 1 mg 03/15/18 10:00 03/17/18 10:33 Folvite PO 1 mg QDAY LIU Administration Haloperidol Lactate 5 mg 03/12/18 02:15 03/17/18 00:29 Haldol IV 5 mg Q6H PRN Administration Agitation Hydrophilic Ointment 1 applic 03/12/18 07:47 03/13/18 11:34 Vaseline Lip Therapy TP 1 applic Q2HR PRN Administration Dry Lips Norepinephrine 4 mg in 250 mls @ 7.5 mls/hr 03/09/18 23:45 03/12/18 13:57 Levophed Drip 4 Mg/Ns 250 Ml IV 0 mcg/min TITR LIU 0 mls/hr Titration Protocol 2 MCG/MIN Vasopressin 20 unit/ Sodium 101 mls @ 9.09 mls/hr 03/10/18 11:00 03/14/18 10:30 Chloride IV 0 units/min TITR LIU 0 mls/hr Titration Protocol 0.03 UNITS/MIN Dexamethasone 20 mg/ Sodium 55 mls @ 100 mls/hr 03/11/18 11:30 03/17/18 10:47 Chloride IV 100 mls/hr Q12HR LIU Administration Propofol 1,000 mg in 100 mls @ 2.721 mls/hr 03/12/18 08:00 03/17/18 10:20 Diprivan 10 Mg/Ml IV 20 mcg/kg/min TITR LIU 10.884 mls/hr Titration Protocol 5 MCG/KG/MIN Cefepime HCl 2 gm in 100 mls @ 200 mls/hr 03/13/18 10:00 03/17/18 10:32 Maxipime/Ns 2 Gm/100 Ml IV 200 mls/hr Q12HR LIU Administration Fentanyl Citrate 2,000 mcg in 100 mls @ 4.535 mls/hr 03/14/18 10:00 03/17/18 10:20 Fentanyl Drip Premix IV 4 mcg/kg/hr TITR LIU 18.14 mls/hr Administration Protocol 1 MCG/KG/HR Midazolam HCl 100 mg/ Sodium 100 mls @ 2 mls/hr 03/15/18 19:00 03/17/18 10:55 Chloride IV 2 mg/hr TITR LIU 2 mls/hr Administration Protocol 2 MG/HR Insulin Human Lispro 0 unit 03/14/18 12:00 03/17/18 06:38 Humalog SUB-Q Not Given Q6HR [facility] Protocol Lansoprazole 30 mg 03/14/18 10:00 03/17/18 10:34 Prevacid Solutab FEEDTUBE 30 mg QDAY ILU Administration Lorazepam 2 mg 03/15/18 17:14 03/17/18 05:33 Ativan IV 2 mg Q3H PRN Administration Agitation Midazolam HCl 2 mg 03/15/18 18:03 03/17/18 10:31 Versed IV 2 mg Q10MIN PRN Administration Sedation Morphine Sulfate 2 mg 03/14/18 05:25 03/14/18 07:49 Morphine IV 2 mg Q4H PRN Administration Pain, Moderate (4-6) Multi-Ingred Cream/Lotion/Oil/Oint 1 applic 03/12/18 07:47 Artificial Tears Ophth Oint OU Q4HR PRN Dry Eye(s) Ondansetron HCl 4 mg 03/14/18 08:00 Zofran IV Q8H PRN Nausea And Vomiting Senna/Docusate Sodium 2 tab 03/16/18 11:00 03/17/18 10:33 Senokot S PO 2 tab BID LIU Administration Simple Syrup 15 ml 03/14/18 16:04 Simple Syrup FEEDTUBE PRN PRN Hypoglycemia Simple Syrup 30 ml 03/14/18 16:04 Simple Syrup FEEDTUBE PRN PRN Hypoglycemia Sodium Chloride 10 ml 03/09/18 22:00 03/17/18 10:35 Sodium Chloride Flush Syringe 10 Ml IV 10 ml BID LIU Administration Sodium Chloride 10 ml 03/09/18 10:41 Sodium Chloride Flush Syringe 10 Ml IV PRN PRN LINE FLUSH
--- NOTE | 2018-03-17 11:32 | Progress Note ---
Assessment and Plan Cultures: 03/09/2018 blood culture: Hemophilus hemolyticus in both sets 03/09/2018 influenza rapid: Negative 03/10/2018 urine culture: Negative 03/12/2018 Resp culture: usual resp thomas. 03/12/2018 Crypto Ag serum: negative. 03/13/2018 blood culture A/P: 33/M with no medical history, admitted with: 1) Septic shock: resolved; etio ? H. flu bacteremia. 2) Acute respiratory failure: now on vent. Initial CXR not suggestive of pneumonia, low suspicion for PJP pneumonia especially since patient reported a good recent CD4 count. Repeat CXRs are probably more suggestive of fluid overload / pulmonary edema which has steadily been improving with diuretics. Anyways, patient on Atovaquone which will cover PJP. Avoiding Bactrim due to thrombocytopenia. 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 Initial CXR not suggestive of pneumonia. Repeat blood cultures neg. CT chest showed possible LLL infiltrate/atelectasis/mucous plugging 4) HIV positive: Apparently he has been HIV positive, used to be on meds - Genvoya but stopped taking it 6 months ago, states his last CD4 count was 400+. 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 improving. [id number] pending. No schistocytes. FELICIA neg, ANCA neg. C3 low (unclear significance), C4 normal. 6) Cardiomyopathy: low EF. etiology unclear. ?HIV related. Cardiology following. Recs: - pt is to have bronch yesterday but high K - continue Cefepime 2 gm q12 hrs D8 of 10 - continue mepron (atovaquone) - request HIV-genotype I discussed with his brother, Caden Liu, who stated his brother told him about HIV infection. His mother was unintentionally alerted by a Health department call but patient did not want any other person other than his brother to know HIV status. Dr Vasquez will cover tomorrow. MD [facility] C: [phone] O: [phone] F: [phone] Subjective Date of service: 03/17/18 Principal diagnosis: Resp failure, atelectasis aspiration,HIV, hyperkalemia,sepsis,low plt Interval history: Patient remains on the vent FiO2 70%,p 10, on sedation. No fever for 3 days. Objective - Exam Narrative Exam: Constitutional: sedated intubated, on vent. Head, Ears, Nose: Normocephalic, atraumatic. External ears, nose normal Eyes: Conjunctivae/corneas clear. No icterus. No ptosis. Neck: Supple, no meningeal signs Oral: intubated, +ETT, +NGT Cardiovascular: RRR Respiratory: CTA ace GI: bowel sounds normal. No peritoneal signs Musculoskeletal: No pedal edema, no cyanosis. Skin: No rash or abscess Hem/Lymphatic: No palpable cervical or supraclavicular nodes. No lymphangitis Psych: sedated Neurological: sedated, intubated, exam limited Right PICC - Constitutional Vitals: Vital Signs Temp Pulse Resp BP Pulse Ox 98.4 F 52 L 17 108/61 96 03/17/18 08:00 03/17/18 11:15 03/17/18 11:15 03/17/18 11:15 03/17/18 11:15 Temperature -Last 24 Hours Temperature 98.4 F Temperature 98.1 F Temperature 98.7 F Temperature 98.8 F Temperature 98.8 F Temperature 98.7 F - Labs CBC & Chem 7: 03/17/18 04:25 03/17/18 04:25 Labs: Abnormal lab results 03/16/18 03/16/18 03/16/18 Range/Units 11:30 15:56 17:28 WBC (4.5-11.0) K/mm3 RBC (3.65-5.03) M/mm3 Hgb (11.8-15.2) gm/dl Hct (35.5-45.6) % Plt Count (140-440) K/mm3 Seg Neuts % (Manual) (40.0-70.0) % Lymphocytes % (Manual) (13.4-35.0) % Seg Neutrophils # Man (1.8-7.7) K/mm3 Lymphocytes # (Manual) (1.2-5.4) K/mm3 POC ABG pCO2 (35-45) POC ABG pO2 (80-105) Potassium 5.5 H (3.6-5.0) mmol/L Chloride (98-107) mmol/L BUN 39 H (9-20) mg/dL Glucose 186 H (75-100) mg/dL POC Glucose 186 H 153 H (70-105) 03/16/18 03/17/18 03/17/18 Range/Units 23:48 04:25 04:25 WBC 13.9 H (4.5-11.0) K/mm3 RBC 2.89 L (3.65-5.03) M/mm3 Hgb 8.2 L (11.8-15.2) gm/dl Hct 27.8 L (35.5-45.6) % Plt Count 85 L (140-440) K/mm3 Seg Neuts % (Manual) 88.0 H (40.0-70.0) % Lymphocytes % (Manual) 4.0 L (13.4-35.0) % Seg Neutrophils # Man 12.2 H (1.8-7.7) K/mm3 Lymphocytes # (Manual) 0.6 L (1.2-5.4) K/mm3 POC ABG pCO2 (35-45) POC ABG pO2 (80-105) Potassium 5.7 H (3.6-5.0) mmol/L Chloride 107.5 H (98-107) mmol/L BUN 38 H (9-20) mg/dL Glucose 165 H (75-100) mg/dL POC Glucose 131 H (70-105) 03/17/18 03/17/18 Range/Units 04:51 05:39 WBC (4.5-11.0) K/mm3 RBC (3.65-5.03) M/mm3 Hgb (11.8-15.2) gm/dl Hct (35.5-45.6) % Plt Count (140-440) K/mm3 Seg Neuts % (Manual) (40.0-70.0) % Lymphocytes % (Manual) (13.4-35.0) % Seg Neutrophils # Man (1.8-7.7) K/mm3 Lymphocytes # (Manual) (1.2-5.4) K/mm3 POC ABG pCO2 45.4 H (35-45) POC ABG pO2 174 H (80-105) Potassium (3.6-5.0) mmol/L Chloride (98-107) mmol/L BUN (9-20) mg/dL Glucose (75-100) mg/dL POC Glucose 140 H (70-105)
[2018-03-17] MEDS ORDERED: HumuLIN R IV ONE (12:00)
[2018-03-17] MEDS ORDERED: D50W (25GM) Syringe IV ONE (12:00)
[2018-03-17] MEDS ORDERED: LASIX IV ONE (12:00)
[2018-03-17 12:53] LABS: Uric Acid 3.5 mg/dL (3.5-7.6)
--- NOTE | 2018-03-17 14:52 | Progress Note ---
Assessment and Plan Assessment and plan: 33 yo with HIV infection. He initially presented with nausea, vomiting, general weakness and chills for 2 days. He was getting weaker, no Urine output therefore came to ED for evaluation. In ED, labs show acute kidney injury with metabolic acidosis thrombocytopenia. He was Sepic, hypotensive. Septic shock/Haemophilus hemolyticus bacteremia sp IVF and pressors, weaned off pressors Antibiotics per ID head and Sinus CT negative Thrombocytopenia, stable and improving, , no schistocytes seen on smear sp plt transfusion and steroids The patient's mother does not know that he is HIV positive, he would not like her to be informed about it. Acute hypoxic respiratory failure on MV >96 hours, intubated since 03/12/17 Pulmonary input appreciated, left hemidiaphragm is elevated, CT chest now shows partial left atelectesis, management per pulmonology planned for bronch, but postponed due to hyperkalemia hyperkalemia medically rx, repeat levels HIV positive. Diagnosed 6 yrs ago, Stopped taking his medications over 6 months ago which was generally oriented. Last CD4 count was 400, current CD4 and HIV viral load are still pending SCOTT resolved, avoid nephrotoxins Hyponatremia,Hypoglycemia. treated and resolved Coagulopathy, improved Acute toxic metabolic encephalpathy has been agitated and hard to sedate, obtain UDS -cont iv sedation dvt ppx -scds in light of thrombocytopenia Critical care time 35 minutes The patient does not want his HIV status being discussed with his family. History Interval history: Patient has been agitated easily, requiring restraints and IV sedation No fevers, no seizures no vomiting Hospitalist Physical - Physical exam Narrative exam: General.: Appears well, no distress, nontoxic HEENT: Moist mucous membranes, extraocular muscles intact, no lymphadenopathy Neck: supple Cardiac: S1-S2 heard Lungs: Ventilated breath sounds Abdomen: soft , nontender, nondistended, bowel sounds positive Extremities: no edema clubbing or cyanosis Skin: no rash or lesions Neurologic: Intubated and sedated - Constitutional Vitals: Temp Pulse Resp BP Pulse Ox 98.4 F 52 L 17 108/61 96 03/17/18 08:00 03/17/18 12:05 03/17/18 11:15 03/17/18 12:05 03/17/18 12:05 General appearance: Present: cachectic, other (chronically ill-appearing) Results - Labs CBC & Chem 7: 03/18/18 04:16 03/18/18 04:16 Labs: Laboratory Last Values WBC 13.9 K/mm3 (4.5-11.0) H 03/17/18 04:25 RBC 2.89 M/mm3 (3.65-5.03) L 03/17/18 04:25 Hgb 8.2 gm/dl (11.8-15.2) L 03/17/18 04:25 Hct 27.8 % (35.5-45.6) L 03/17/18 04:25 MCV 89 fl (84-94) 03/17/18 04:25 MCH 28 pg (28-32) 03/17/18 04:25 MCHC 32 % (32-34) 03/17/18 04:25 RDW 14.9 % (13.2-15.2) 03/17/18 04:25 Plt Count 85 K/mm3 (140-440) L 03/17/18 04:25 Eos % (Auto) Senior Scrum Master 03/09/18 07:00 Add Manual Diff Complete 03/17/18 04:25 Total Counted 100 03/17/18 04:25 Seg Neutrophils % Senior Scrum Master 03/17/18 04:25 Seg Neuts % (Manual) 88.0 % (40.0-70.0) H 03/17/18 04:25 Band Neutrophils % 7.0 % 03/17/18 04:25 Lymphocytes % (Manual) 4.0 % (13.4-35.0) L 03/17/18 04:25 Reactive Lymphs % (Man) 0 % 03/17/18 04:25 Monocytes % (Manual) 1.0 % (0.0-7.3) 03/17/18 04:25 Eosinophils % (Manual) 0 % (0.0-4.3) 03/17/18 04:25 Basophils % (Manual) 0 % (0.0-1.8) 03/17/18 04:25 Metamyelocytes % 0 % 03/17/18 04:25 Myelocytes % 0 % 03/17/18 04:25 Promyelocytes % 0 % 03/17/18 04:25 Blast Cells % 0 % 03/17/18 04:25 Nucleated RBC % Not Reportable 03/17/18 04:25 Seg Neutrophils # Man 12.2 K/mm3 (1.8-7.7) H 03/17/18 04:25 Band Neutrophils # 1.0 K/mm3 03/17/18 04:25 Abs Lymphs (Manual) 779 cells/uL (850-3900) L 03/10/18 18:15 Lymphocytes # (Manual) 0.6 K/mm3 (1.2-5.4) L 03/17/18 04:25 Abs React Lymphs (Man) 0.0 K/mm3 03/17/18 04:25 Monocytes # (Manual) 0.1 K/mm3 (0.0-0.8) 03/17/18 04:25 Eosinophils # (Manual) 0.0 K/mm3 (0.0-0.4) 03/17/18 04:25 Basophils # (Manual) 0.0 K/mm3 (0.0-0.1) 03/17/18 04:25 Metamyelocytes # 0.0 K/mm3 03/17/18 04:25 Myelocytes # 0.0 K/mm3 03/17/18 04:25 Promyelocytes # 0.0 K/mm3 03/17/18 04:25 Blast Cells # 0.0 K/mm3 03/17/18 04:25 Pathologist Review 03/12/18 06:29 WBC Morphology Not Reportable 03/17/18 04:25 Hypersegmented Neuts Not Reportable 03/17/18 04:25 Hyposegmented Neuts Not Reportable 03/17/18 04:25 Hypogranular Neuts Not Reportable 03/17/18 04:25 Smudge Cells Not Reportable 03/17/18 04:25 Toxic Granulation Not Reportable 03/17/18 04:25 Toxic Vacuolation Not Reportable 03/17/18 04:25 Dohle Bodies Not Reportable 03/17/18 04:25 Pelger-Huet Anomaly Not Reportable 03/17/18 04:25 Kamar Rods Not Reportable 03/17/18 04:25 Platelet Estimate Consistent w auto 03/17/18 04:25 Clumped Platelets Not Reportable 03/17/18 04:25 Plt Clumps, EDTA Not Reportable 03/17/18 04:25 Large Platelets Not Reportable 03/17/18 04:25 Giant Platelets Not Reportable 03/17/18 04:25 Platelet Satelliting Not Reportable 03/17/18 04:25 Plt Morphology Comment Not Reportable 03/17/18 04:25 RBC Morphology Not Reportable 03/17/18 04:25 Dimorphic RBCs Not Reportable 03/17/18 04:25 Polychromasia Not Reportable 03/17/18 04:25 Hypochromasia Not Reportable 03/17/18 04:25 Poikilocytosis Not Reportable 03/17/18 04:25 Anisocytosis 1+ 03/17/18 04:25 Microcytosis Not Reportable 03/17/18 04:25 Macrocytosis Not Reportable 03/17/18 04:25 Spherocytes Not Reportable 03/17/18 04:25 Pappenheimer Bodies Not Reportable 03/17/18 04:25 Sickle Cells Not Reportable 03/17/18 04:25 Target Cells Few 03/17/18 04:25 Tear Drop Cells Not Reportable 03/17/18 04:25 Ovalocytes Few 03/17/18 04:25 Stomatocytes Rare 03/14/18 06:00 Helmet Cells Not Reportable 03/17/18 04:25 [place] Bodies Not Reportable 03/17/18 04:25 [place]iker Rings Not Reportable 03/17/18 04:25 [place] Cells Not Reportable 03/17/18 04:25 Bite Cells Not Reportable 03/17/18 04:25 Crenated Cell Not Reportable 03/17/18 04:25 Elliptocytes Not Reportable 03/17/18 04:25 Acanthocytes (Spur) Not Reportable 03/17/18 04:25 Rouleaux Not Reportable 03/17/18 04:25 Hemoglobin C Crystals Not Reportable 03/17/18 04:25 Schistocytes Not Reportable 03/17/18 04:25 Malaria parasites Not Reportable 03/17/18 04:25 Jose Bodies Not Reportable 03/17/18 04:25 Hem Pathologist Commnt No 03/17/18 04:25 PT 17.2 Sec. (12.2-14.9) H 03/10/18 18:15 INR 1.36 (0.87-1.13) H 03/10/18 18:15 APTT 38.5 Sec. (24.2-36.6) H 03/10/18 18:15 Fibrinogen 852 mg/dl (211-480) H 03/10/18 18:15 POC ABG pH 7.407 (7.35-7.45) 03/17/18 04:51 POC ABG pCO2 45.4 (35-45) H 03/17/18 04:51 POC ABG pO2 174 (80-105) H 03/17/18 04:51 POC ABG HCO3 28.6 03/17/18 04:51 POC ABG Total CO2 30 03/17/18 04:51 POC ABG O2 Sat 100 03/17/18 04:51 POC ABG Base Excess 4 03/17/18 04:51 VBG pH 7.297 (7.320-7.420) L 03/09/18 07:00 FiO2 75 % 03/17/18 04:51 Sodium 142 mmol/L (137-145) 03/17/18 04:25 Potassium 5.7 mmol/L (3.6-5.0) H 03/17/18 04:25 Chloride 107.5 mmol/L (98-107) H 03/17/18 04:25 Carbon Dioxide 27 mmol/L (22-30) 03/17/18 04:25 Anion Gap 13 mmol/L 03/17/18 04:25 BUN 38 mg/dL (9-20) H 03/17/18 04:25 Creatinine 0.8 mg/dL (0.8-1.5) 03/17/18 04:25 Estimated GFR > 60 ml/min 03/17/18 04:25 BUN/Creatinine Ratio 48 % 03/17/18 04:25 Glucose 165 mg/dL (75-100) H 03/17/18 04:25 POC Glucose 122 (70-105) H 03/17/18 11:51 Osmolality 256 Mosm/kg 03/14/18 07:00 Lactic Acid 4.10 mmol/L (0.7-2.0) H* 03/10/18 01:00 Uric Acid 3.5 mg/dL (3.5-7.6) 03/17/18 04:25 Calcium 8.4 mg/dL (8.4-10.2) 03/17/18 04:25 Phosphorus 4.10 mg/dL (2.5-4.5) D 03/17/18 04:25 Magnesium 2.00 mg/dL (1.7-2.3) 03/17/18 04:25 Iron 42 ug/dL (49-181) L 03/14/18 07:00 TIBC 262 mcg/dL (250-450) 03/14/18 07:00 Ferritin 532.4 ng/mL (13.0-400.0) H 03/14/18 07:00 Total Bilirubin 2.30 mg/dL (0.1-1.2) H 03/12/18 06:29 Direct Bilirubin 1.5 mg/dL (0-0.2) H 03/12/18 06:29 Indirect Bilirubin 0.8 mg/dL 03/12/18 06:29 AST 33 units/L (5-40) 03/12/18 06:29 ALT 48 units/L (7-56) 03/12/18 06:29 Alkaline Phosphatase 111 units/L (35-129) 03/12/18 06:29 Lactate Dehydrogenase 232 units/L (91-180) H 03/17/18 04:25 Total Creatine Kinase 33 units/L (55-170) L 03/17/18 04:25 NT-Pro-B Natriuret Pep 51270 pg/mL (0-450) H 03/10/18 11:16 Total Protein 6.2 g/dL (6.3-8.2) L 03/12/18 06:29 Albumin 3.1 g/dL (3.9-5) L 03/12/18 06:29 Albumin/Globulin Ratio 1.0 % 03/12/18 06:29 Triglycerides 212 mg/dL (2-149) H 03/16/18 05:01 Vitamin B12 1825 pg/mL (211-911) H 03/14/18 07:00 Folate 6.29 ng/mL (7.3-26.0) L 03/14/18 07:00 Urine Color Red (Yellow) 03/10/18 06:00 Urine Turbidity Cloudy (Clear) 03/10/18 06:00 Urine pH 5.0 (5.0-7.0) 03/10/18 06:00 Ur Specific [place] 1.009 (1.003-1.030) 03/10/18 06:00 Urine Protein 100 mg/dl mg/dL (Negative) 03/10/18 06:00 Urine Glucose (UA) Neg mg/dL (Negative) 03/10/18 06:00 Urine Ketones Neg mg/dL (Negative) 03/10/18 06:00 Urine Blood Lg (Negative) 03/10/18 06:00 Urine Nitrite Neg (Negative) 03/10/18 06:00 Urine Bilirubin Neg (Negative) 03/10/18 06:00 Urine Urobilinogen < 2.0 mg/dL (<2.0) 03/10/18 06:00 Ur Leukocyte Esterase Neg (Negative) 03/10/18 06:00 Urine WBC (Auto) 32.0 /HPF (0.0-6.0) H 03/10/18 06:00 Urine RBC (Auto) > 182.0 /HPF (0.0-6.0) 03/10/18 06:00 U Epithel Cells (Auto) 5.0 /HPF (0-13.0) 03/09/18 14:39 Urine Bacteria (Auto) 2+ /HPF (Negative) 03/10/18 06:00 Urine WBC Clumps Few /HPF 03/09/18 14:39 Amorphous Crystals 3+ 03/10/18 06:00 Granular Casts 29 /LPF 03/10/18 06:00 Urine Creatinine 210.7 mg/dL (0.1-20.0) H 03/09/18 14:39 Protein/Creatinin Ratio 3.89 03/09/18 14:39 Urine Sodium 81 mmol/L 03/14/18 18:50 Urine Total Protein 820 mg/dL (5-11.8) H 03/09/18 14:39 Urine Opiates Screen Presumptive negative 03/16/18 Unknown Urine Methadone Screen Presumptive negative 03/16/18 Unknown Ur Barbiturates Screen Presumptive negative 03/16/18 Unknown Ur Phencyclidine Scrn Presumptive negative 03/16/18 Unknown Ur Amphetamines Screen Presumptive negative 03/16/18 Unknown U Benzodiazepines Scrn Presumptive negative 03/16/18 Unknown Urine Cocaine Screen Presumptive negative 03/16/18 Unknown U Marijuana (THC) Screen Presumptive positive 03/16/18 Unknown Drugs of Abuse Note Disclamer 03/16/18 Unknown FELICIA Screen Negative (Negative) 03/10/18 11:16 Proteinase 3 (PR3) Ab <1.0 AI (<1.0) 03/10/18 11:16 Myeloperoxidase Ab <1.0 AI (<1.0) 03/10/18 11:16 Glomerular Base Mem IgG See scanned result 03/10/18 11:16 Complement C3 83 mg/dL (82-185) 03/10/18 11:16 Complement C4 30 mg/dL (15-53) 03/10/18 11:16 Lymph Enumerat CD4/CD8 0.56 (0.86-5.00) L 03/10/18 18:15 % CD3 Cells 67 % (57-85) 03/10/18 18:15 Absolute CD3 Count 524 cells/uL (840-3060) L 03/10/18 18:15 % CD4 Cells 24 % (30-61) L 03/10/18 18:15 Absolute CD4 Count 194 cells/uL (490-1740) L 03/10/18 18:15 % CD8 Cells 43 % (12-42) H 03/10/18 18:15 Absolute CD8 Count 344 cells/uL (180-1170) 03/10/18 18:15 % CD19 Cells 25 % (6-29) 03/10/18 18:15 Absolute CD19 Count 188 cells/uL (110-660) 03/10/18 18:15 Hepatitis A IgM Ab Non-reactive (NonReactive) 03/09/18 20:39 Hep Bs Antigen Non-reactive (Negative) 03/09/18 20:39 Hep B Core IgM Ab Non-reactive (NonReactive) 03/09/18 20:39 Hepatitis C Antibody Non-reactive (NonReactive) 03/09/18 20:39 HIV-1 Antibody See scanned result 03/09/18 20:39 HIV-1 RNA PCR copies/ml 80919 Copies/mL H 03/10/18 18:15 HIV-1 RNA (PCR) log 4.71 Log cps/mL H 03/10/18 18:15 HIV-2 Ab (Immunoblot) See scanned result 03/09/18 20:39 HIV 1&2 Antibody Rapid Reactive (Non React) 03/09/18 20:39 HIV P24 Antigen Non react (Non React) 03/09/18 20:39 Influenza A (Rapid) Negative (Negative) 03/09/18 Unknown Influenza B (Rapid) Negative (Negative) 03/09/18 Unknown Schistocytes Smear Rare 03/10/18 11:16 Blood Type O POSITIVE 03/09/18 12:36 Antibody Screen Negative 03/09/18 12:36 Nutrition/Malnutrition Assess - Dietary Evaluation Nutrition/Malnutrition Findings: Nutrition Notes Start: 03/12/18 12:51 Freq: Status: Active Protocol: Document 03/16/18 12:19 OCTAVIO (Rec: 03/16/18 12:38 OCTAVIO [email or web address]) Co-Sign 03/16/18 12:19 OL Nutrition Notes Initial or Follow up Reassessment Current Diagnosis Acute Kidney Injury Sepsis Respiratory Failure Other Pertinent Diagnosis HIV Current Diet Osmolite 1.5 at 60 ml/hr Labs/Tests Na 148 K 5.7 BUN: 41 T Pertinent Medications propofol at 10.884 ml/hr (287 kcals) Height 5 ft 11 in Weight 90.7 kg [place] Body Weight (lbs) 172.0 BMI 27.8 Subjective/Other Information Observed Osmolite 1.5 infusing at 60 ml/hr. Pt tolerating TF per nurse. During interdisciplinary rounds, per MD TF will be on hold for 24 hrs for procedure. Percent of energy/protein needs met: 100%/83% Burn Absent Trauma Absent #2 Nutrition Diagnosis Inadequate oral intake Diagnosis Progress(for reassessment Continues documentation) Is patient on ventilator? Yes Is Patient Ambulatory and/or Out of Bed No REE-([facility]-confined to bed) 0775.128 Calculation Used for Recommendations [facility] Additional Notes Protein needs are 109-181g (1. 2-2g/kg) Fluid needs are 1ml/kcal Nutrition Intervention Nutrition Support: Osmolite 1.5 at 60ml/hr Water flush of 250 mls q 4 hrs until hypernatremia resolves. Water flush of 200 mls q 4 hrs after hypernatremia resolves. Kcal 2,160 Protein (gm) 90 Fluid (mL) 1,097 Goal #1 Continue to meet at least 80% of kcal and protein needs Anticipated Discharge Needs: Unable to determine at this time Follow-Up By: 03/18/18 Additional Comments F/U for TF restart and tolerance, Na and K labs. Consider change of formula
[2018-03-17 15:28] LABS: BUN/Creatinine Ratio 45; Blood Urea Nitrogen 36 mg/dL (9-20); Calcium 8.4 mg/dL (8.4-10.2); Hemolysis Index 7
[2018-03-17] MEDS: D50W (25GM) Vial IV SCH ×2 (17:45→19:53)
[2018-03-17] MEDS: HumuLIN R IV SCH ×2 (17:46→19:53)
[2018-03-18] MEDS: DECADRON 20 MG in NACL 0.9% 50 ML IV SCH (00:54)
[2018-03-18] MEDS ORDERED: INTROPIN DRIP 800 MG/D5W 250 ML 800 MG/250 ML BAG IV SCH (01:00)
[2018-03-18] MEDS: SUBLIMAZE IV PRN (02:38)
--- NOTE | 2018-03-18 03:08 | XRay Report ---
FINAL REPORT PROCEDURE: XR CHEST 1V AP TECHNIQUE: Chest radiograph anteroposterior view. CPT 96168 HISTORY: Hypoxemia COMPARISON: 03/17/2018 FINDINGS: Heart: Normal. Mediastinum/Vessels: Normal. Lungs/Pleural space: There is atelectasis at the left lung base. Lungs are otherwise clear and expand ed.. Bony thorax: No acute osseous abnormality. Life support devices: NG tube is in the stomach. There is an endotracheal tube the mid trachea. There is a right-sided central venous catheter. The tip is in the superior vena cava.. IMPRESSION: The heart size is normal.. There is atelectasis at the left lung base. Lungs are otherwise clear and expanded.. NG tube is in the stomach. There is an endotracheal tube the mid trachea. There is a right-sided cent ral venous catheter. The tip is in the superior vena cava..
[2018-03-18] MEDS: HALDOL IV PRN (03:25)
[2018-03-18 04:57] LABS: Hematocrit 33.3 % (35.5-45.6); Hemoglobin 10.8 gm/dl (11.8-15.2); Mean Corpuscular HGB Conc 32 % (32-34); Mean Corpuscular Volume 88 fl (84-94); Platelet Count 143 K/mm3 (140-440); Red Cell Distribution Width 14.3 % (13.2-15.2)
[2018-03-18 05:16] LABS: BUN/Creatinine Ratio 43; Blood Urea Nitrogen 34 mg/dL (9-20); Calcium 8.5 mg/dL (8.4-10.2); Hemolysis Index 5
[2018-03-18] MEDS: DIPRIVAN 10 MG/ML 1,000 MG/100 ML BOTTLE IV SCH ×3 (05:22→21:21)
[2018-03-18 05:57] LABS: Band Neutrophils # (Manual) 2.4 K/mm3; Basophils % (Manual) 0 % (0.0-1.8); Eosinophils % (Manual) 0 % (0.0-4.3); Total Cells Counted 100
[2018-03-18 05:58] LABS: Anisocytosis Few; Hypochromasia Few; Ovalocytes Rare; Platelet Estimate Consistent w Auto
--- NOTE | 2018-03-18 07:17 | Hem/Onc Progress Note ---
Assessment and Plan 1. Thrombocytopenia. I reviewed the peripheral smear. I spoke to the analytical lab analyst. The laboratory report mentioned no schistocytes. When I reviewed the smear it did not have any schistocytes. Creatinine is elevated. The patient is short of breath. 2. At this time, differential includes some idiopathic thrombocytopenic purpura. Other differentials include immunosuppression related or medication or infection related. The patient's PT, PTT is elevated, but fibrinogen is not low. At admission, chest x-ray was clear and now it has worsened. There is a clinical suspicion of this being infection or disseminated intravascular coagulation or acute respiratory distress syndrome. 3. Renal impairment. 4. Decreased urine output. 5. h/o Shortness of breath. 6. Human immunodeficiency virus, pt was on treatment. 7. discussed with IDT. 8. steroid trial. 9. BNP was elevated. 10. I ordered [id number]. 11. Abnormal liver function tests. 12. Being treated for Haemophilus influenzae. 13. CD4 count 400. I will follow the patient during inpatient stay. 03/11/2018 - d/w dr garrison - low EF pt is on dexa 40 daily s/p plt transfusion no active bleeding 03/12/2018 s/p plt transfusion on dexa intubated d/w lab reg [id number] HIV d/w dr ojeda 03/15 - low folate plt better once plt >100 - will look into altering steroids as per nurse - good urine OP 03/16/2017 - pt plt are better - will follow off pressors 03/17/2018 - hb low as s iron was low - iv iron trial plt 85 - ct dexa for now - once >100 will look into changing ADAMTS - report not seen 03/18/2018 - plt 140s - change dexa to prednisone hb better good urine OP still on vent - Patient Problems (1) Thrombocytopenia Current Visit: Yes Status: Acute Subjective Date of service: 03/18/18 Principal diagnosis: low plt Interval history: still on vent - agitated Objective - Exam Narrative Exam: orally intubated - Constitutional Vitals: Last Vital Signs Temp 100.3 F H 03/18/18 03:28 Pulse 64 03/18/18 06:45 Resp 17 03/18/18 06:45 BP 107/58 03/18/18 06:45 Pulse Ox 97 03/18/18 06:45 General appearance: mild distress (agitated) Performance status: 4-completely disabled - EENT ENT: other (intubated) Lymph node exam: negative cervical, negative supraclavicular - Respiratory Respiratory: bilateral: diminished - Cardiovascular Heart Sounds: Present: S1 & S2 Extremities: No edema - Gastrointestinal General gastrointestinal: Present: soft, non-tender Rectal Exam: deferred - Genitourinary Male genitourinary: Present: deferred - Integumentary Integumentary: warm - Neurologic Neurologic: moves all extremities, other (agitated - on vent) - Labs Lab Results: Laboratory Results - last 24 hr 03/12/18 03/17/18 03/17/18 16:45 04:25 11:51 WBC RBC Hgb Hct MCV MCH MCHC RDW Plt Count Add Manual Diff Total Counted Seg Neutrophils % Seg Neuts % (Manual) Band Neutrophils % Lymphocytes % (Manual) Reactive Lymphs % (Man) Monocytes % (Manual) Eosinophils % (Manual) Basophils % (Manual) Metamyelocytes % Myelocytes % Promyelocytes % Blast Cells % Nucleated RBC % Seg Neutrophils # Man Band Neutrophils # Lymphocytes # (Manual) Abs React Lymphs (Man) Monocytes # (Manual) Eosinophils # (Manual) Basophils # (Manual) Metamyelocytes # Myelocytes # Promyelocytes # Blast Cells # WBC Morphology Hypersegmented Neuts Hyposegmented Neuts Hypogranular Neuts Smudge Cells Toxic Granulation Toxic Vacuolation Dohle Bodies Pelger-Huet Anomaly Kamar Rods Platelet Estimate Clumped Platelets Plt Clumps, EDTA Large Platelets Giant Platelets Platelet Satelliting Plt Morphology Comment RBC Morphology Dimorphic RBCs Polychromasia Hypochromasia Poikilocytosis Anisocytosis Microcytosis Macrocytosis Spherocytes Pappenheimer Bodies Sickle Cells Target Cells Tear Drop Cells Ovalocytes Helmet Cells [place] Bodies Imbler Rings Lyssa Cells Bite Cells Crenated Cell Elliptocytes Acanthocytes (Spur) Rouleaux Hemoglobin C Crystals Schistocytes Malaria parasites Jose Bodies Hem Pathologist Commnt POC ABG pH POC ABG pCO2 POC ABG pO2 POC ABG HCO3 POC ABG Total CO2 POC ABG O2 Sat POC ABG Base Excess FiO2 Sodium Potassium Chloride Carbon Dioxide Anion Gap BUN Creatinine Estimated GFR BUN/Creatinine Ratio Glucose POC Glucose 122 H Uric Acid 3.5 Calcium Phosphorus Lactate Dehydrogenase 232 H Total Creatine Kinase 33 L Miscellaneous Test Flexitest 1 03/17/18 03/17/18 03/17/18 14:40 17:40 20:20 WBC RBC Hgb Hct MCV MCH MCHC RDW Plt Count Add Manual Diff Total Counted Seg Neutrophils % Seg Neuts % (Manual) Band Neutrophils % Lymphocytes % (Manual) Reactive Lymphs % (Man) Monocytes % (Manual) Eosinophils % (Manual) Basophils % (Manual) Metamyelocytes % Myelocytes % Promyelocytes % Blast Cells % Nucleated RBC % Seg Neutrophils # Man Band Neutrophils # Lymphocytes # (Manual) Abs React Lymphs (Man) Monocytes # (Manual) Eosinophils # (Manual) Basophils # (Manual) Metamyelocytes # Myelocytes # Promyelocytes # Blast Cells # WBC Morphology Hypersegmented Neuts Hyposegmented Neuts Hypogranular Neuts Smudge Cells Toxic Granulation Toxic Vacuolation Dohle Bodies Pelger-Huet Anomaly Kamar Rods Platelet Estimate Clumped Platelets Plt Clumps, EDTA Large Platelets Giant Platelets Platelet Satelliting Plt Morphology Comment RBC Morphology Dimorphic RBCs Polychromasia Hypochromasia Poikilocytosis Anisocytosis Microcytosis Macrocytosis Spherocytes Pappenheimer Bodies Sickle Cells Target Cells Tear Drop Cells Ovalocytes Helmet Cells [place] Bodies Imbler Rings Lyssa Cells Bite Cells Crenated Cell Elliptocytes Acanthocytes (Spur) Rouleaux Hemoglobin C Crystals Schistocytes Malaria parasites Jose Bodies Hem Pathologist Commnt POC ABG pH POC ABG pCO2 POC ABG pO2 POC ABG HCO3 POC ABG Total CO2 POC ABG O2 Sat POC ABG Base Excess FiO2 Sodium 143 Potassium 4.4 D 4.9 Chloride 105.9 Carbon Dioxide 28 Anion Gap 14 BUN 36 H Creatinine 0.8 Estimated GFR > 60 BUN/Creatinine Ratio 45 Glucose 107 H POC Glucose 113 H Uric Acid Calcium 8.4 Phosphorus Lactate Dehydrogenase Total Creatine Kinase Miscellaneous Test 03/17/18 03/18/18 03/18/18 23:52 04:16 04:16 WBC 14.9 H RBC 3.80 Hgb 10.8 L Hct 33.3 L MCV 88 MCH 28 MCHC 32 RDW 14.3 Plt Count 143 Add Manual Diff Complete Total Counted 100 Seg Neutrophils % Intensive Care Medicine Specialist Seg Neuts % (Manual) 76.0 H Band Neutrophils % 16.0 Lymphocytes % (Manual) 5.0 L Reactive Lymphs % (Man) 0 Monocytes % (Manual) 3.0 Eosinophils % (Manual) 0 Basophils % (Manual) 0 Metamyelocytes % 0 Myelocytes % 0 Promyelocytes % 0 Blast Cells % 0 Nucleated RBC % Not Reportable Seg Neutrophils # Man 11.3 H Band Neutrophils # 2.4 Lymphocytes # (Manual) 0.7 L Abs React Lymphs (Man) 0.0 Monocytes # (Manual) 0.4 Eosinophils # (Manual) 0.0 Basophils # (Manual) 0.0 Metamyelocytes # 0.0 Myelocytes # 0.0 Promyelocytes # 0.0 Blast Cells # 0.0 WBC Morphology Not Reportable Hypersegmented Neuts Not Reportable Hyposegmented Neuts Not Reportable Hypogranular Neuts Not Reportable Smudge Cells Not Reportable Toxic Granulation Not Reportable Toxic Vacuolation Not Reportable Dohle Bodies Not Reportable Pelger-Huet Anomaly Not Reportable Kamar Rods Not Reportable Platelet Estimate Consistent w auto Clumped Platelets Not Reportable Plt Clumps, EDTA Not Reportable Large Platelets Not Reportable Giant Platelets Not Reportable Platelet Satelliting Not Reportable Plt Morphology Comment Not Reportable RBC Morphology Not Reportable Dimorphic RBCs Not Reportable Polychromasia Not Reportable Hypochromasia Few Poikilocytosis Not Reportable Anisocytosis Few Microcytosis Not Reportable Macrocytosis Not Reportable Spherocytes Not Reportable Pappenheimer Bodies Not Reportable Sickle Cells Not Reportable Target Cells Not Reportable Tear Drop Cells Not Reportable Ovalocytes Rare Helmet Cells Not Reportable [place] Bodies Not Reportable Imbler Rings Not Reportable [place] Cells Not Reportable Bite Cells Not Reportable Crenated Cell Not Reportable Elliptocytes Not Reportable Acanthocytes (Spur) Not Reportable Rouleaux Not Reportable Hemoglobin C Crystals Not Reportable Schistocytes Not Reportable Malaria parasites Not Reportable Jose Bodies Not Reportable Hem Pathologist Commnt No POC ABG pH POC ABG pCO2 POC ABG pO2 POC ABG HCO3 POC ABG Total CO2 POC ABG O2 Sat POC ABG Base Excess FiO2 Sodium 144 Potassium 4.6 Chloride 106.4 Carbon Dioxide 27 Anion Gap 15 BUN 34 H Creatinine 0.8 Estimated GFR > 60 BUN/Creatinine Ratio 43 Glucose 116 H POC Glucose 94 Uric Acid Calcium 8.5 Phosphorus 3.20 D Lactate Dehydrogenase Total Creatine Kinase Miscellaneous Test 03/18/18 03/18/18 04:48 05:13 WBC RBC Hgb Hct MCV MCH MCHC RDW Plt Count Add Manual Diff Total Counted Seg Neutrophils % Seg Neuts % (Manual) Band Neutrophils % Lymphocytes % (Manual) Reactive Lymphs % (Man) Monocytes % (Manual) Eosinophils % (Manual) Basophils % (Manual) Metamyelocytes % Myelocytes % Promyelocytes % Blast Cells % Nucleated RBC % Seg Neutrophils # Man Band Neutrophils # Lymphocytes # (Manual) Abs React Lymphs (Man) Monocytes # (Manual) Eosinophils # (Manual) Basophils # (Manual) Metamyelocytes # Myelocytes # Promyelocytes # Blast Cells # WBC Morphology Hypersegmented Neuts Hyposegmented Neuts Hypogranular Neuts Smudge Cells Toxic Granulation Toxic Vacuolation Dohle Bodies Pelger-Huet Anomaly Kamar Rods Platelet Estimate Clumped Platelets Plt Clumps, EDTA Large Platelets Giant Platelets Platelet Satelliting Plt Morphology Comment RBC Morphology Dimorphic RBCs Polychromasia Hypochromasia Poikilocytosis Anisocytosis Microcytosis Macrocytosis Spherocytes Pappenheimer Bodies Sickle Cells Target Cells Tear Drop Cells Ovalocytes Helmet Cells [place] Bodies Imbler Rings Lyssa Cells Bite Cells Crenated Cell Elliptocytes Acanthocytes (Spur) Rouleaux Hemoglobin C Crystals Schistocytes Malaria parasites Jose Bodies Hem Pathologist Commnt POC ABG pH 7.429 POC ABG pCO2 40.5 POC ABG pO2 54 L POC ABG HCO3 26.8 POC ABG Total CO2 28 POC ABG O2 Sat 88 POC ABG Base Excess 2 FiO2 65 Sodium Potassium Chloride Carbon Dioxide Anion Gap BUN Creatinine Estimated GFR BUN/Creatinine Ratio Glucose POC Glucose 127 H Uric Acid Calcium Phosphorus Lactate Dehydrogenase Total Creatine Kinase Miscellaneous Test Medications & Allergies - Medications Allergies/Adverse Reactions: Allergies clindamycin Allergy (Verified 03/09/18 06:43) Swelling Home Medications: Home Medications Medication Instructions Recorded Confirmed Last Taken Type No Known Home Medications [No 03/09/18 03/09/18 Unknown History Reported Home Medications] Active Medications: Generic Name Dose Route Start Last Admin Trade Name Freq PRN Reason Stop Dose Admin Lipase/Protease/Amylase 1 each 03/14/18 16:04 [place] 10,500 Unit FEEDTUBE PRN PRN For Clogged Feeding Tube Atovaquone 1,500 mg 03/11/18 20:00 03/17/18 10:33 Mepron PO 1,500 mg QDAY LIU Administration Clonazepam 0.5 mg 03/17/18 11:00 03/18/18 05:22 Klonopin PO 0.5 mg Q8HR LIU Administration Dextrose 50 ml 03/09/18 16:15 D50w (25gm) Syringe IV PRN PRN HYPOGLYCEMIA Fentanyl 50 mcg 03/14/18 09:44 03/18/18 02:38 Sublimaze IV 50 mcg Q2H PRN Administration Pain , Severe (7-10) Folic Acid 1 mg 03/15/18 10:00 03/17/18 10:33 Folvite PO 1 mg QDAY LIU Administration Haloperidol Lactate 5 mg 03/12/18 02:15 03/18/18 03:25 Haldol IV 5 mg Q6H PRN Administration Agitation Hydrophilic Ointment 1 applic 03/12/18 07:47 03/13/18 11:34 Vaseline Lip Therapy TP 1 applic Q2HR PRN Administration Dry Lips Norepinephrine 4 mg in 250 mls @ 7.5 mls/hr 03/09/18 23:45 03/12/18 13:57 Levophed Drip 4 Mg/Ns 250 Ml IV 0 mcg/min TITR LIU 0 mls/hr Titration Protocol 2 MCG/MIN Vasopressin 20 unit/ Sodium 101 mls @ 9.09 mls/hr 03/10/18 11:00 03/14/18 10:30 Chloride IV 0 units/min TITR LIU 0 mls/hr Titration Protocol 0.03 UNITS/MIN Dexamethasone 20 mg/ Sodium 55 mls @ 100 mls/hr 03/11/18 11:30 03/18/18 00:54 Chloride IV 100 mls/hr Q12HR LIU Administration Propofol 1,000 mg in 100 mls @ 2.721 mls/hr 03/12/18 08:00 03/18/18 05:22 Diprivan 10 Mg/Ml IV 20 mcg/kg/min TITR LIU 10.884 mls/hr Administration Protocol 5 MCG/KG/MIN Cefepime HCl 2 gm in 100 mls @ 200 mls/hr 03/13/18 10:00 03/17/18 21:22 Maxipime/Ns 2 Gm/100 Ml IV 200 mls/hr Q12HR LIU Administration Fentanyl Citrate 2,000 mcg in 100 mls @ 4.535 mls/hr 03/14/18 10:00 03/17/18 21:00 Fentanyl Drip Premix IV 4 mcg/kg/hr TITR LUI 18.14 mls/hr Administration Protocol 1 MCG/KG/HR Midazolam HCl 100 mg/ Sodium 100 mls @ 2 mls/hr 03/15/18 19:00 03/17/18 16:00 Chloride IV 5 mg/hr TITR LIU 5 mls/hr Titration Protocol 2 MG/HR Dopamine HCl/Dextrose 800 mg in 250 mls @ 2.936 mls/hr 03/18/18 01:00 Intropin Drip 800 Mg/D5w 250 Ml IV TITR LIU Protocol 2 MCG/KG/MIN Insulin Human Lispro 0 unit 03/14/18 12:00 03/17/18 18:55 Humalog SUB-Q Not Given Q6HR [facility] Protocol Lansoprazole 30 mg 03/14/18 10:00 03/17/18 10:34 Prevacid Solutab FEEDTUBE 30 mg QDAY LIU Administration Lorazepam 2 mg 03/15/18 17:14 03/17/18 17:41 Ativan IV 2 mg Q3H PRN Administration Agitation Midazolam HCl 2 mg 03/15/18 18:03 03/17/18 10:31 Versed IV 2 mg Q10MIN PRN Administration Sedation Morphine Sulfate 2 mg 03/14/18 05:25 03/14/18 07:49 Morphine IV 2 mg Q4H PRN Administration Pain, Moderate (4-6) Multi-Ingred Cream/Lotion/Oil/Oint 1 applic 03/12/18 07:47 Artificial Tears Ophth Oint OU Q4HR PRN Dry Eye(s) Ondansetron HCl 4 mg 03/14/18 08:00 Zofran IV Q8H PRN Nausea And Vomiting Senna/Docusate Sodium 2 tab 03/16/18 11:00 03/17/18 21:19 Senokot S PO 2 tab BID LIU Administration Simple Syrup 15 ml 03/14/18 16:04 Simple Syrup FEEDTUBE PRN PRN Hypoglycemia Simple Syrup 30 ml 03/14/18 16:04 Simple Syrup FEEDTUBE PRN PRN Hypoglycemia Sodium Chloride 10 ml 03/09/18 22:00 03/17/18 21:20 Sodium Chloride Flush Syringe 10 Ml IV 10 ml BID LIU Administration Sodium Chloride 10 ml 01/02/19 10:41 Sodium Chloride Flush Syringe 10 Ml IV PRN PRN LINE FLUSH
[2018-03-18] MEDS: MIDAZOLAM 100 MG in NACL 0.9% 80 ML IV SCH (07:25)
[2018-03-18] MEDS: fentaNYL DRIP Premix 2,000 MCG/100 ML BAG IV SCH ×2 (08:26→21:22)
[2018-03-18] MEDS: ATIVAN IV PRN (08:42)
[2018-03-18] MEDS: MAXIPIME/NS 2 GM/100 ML 2 GM/100 ML BAG IV SCH ×2 (09:21→22:36)
[2018-03-18] MEDS: FOLVITE PO SCH (09:22)
[2018-03-18] MEDS: SENOKOT S PO SCH ×2 (09:22→22:36)
[2018-03-18] MEDS: MEPRON PO SCH (09:22)
[2018-03-18] MEDS: PREVACID SOLUTAB FEEDTUBE SCH (09:24)
[2018-03-18] MEDS: SODIUM CHLORIDE FLUSH SYRINGE 10 ML IV SCH ×2 (09:34→22:37)
--- NOTE | 2018-03-18 09:56 | Progress Note ---
Assessment and Plan Acute respiratory failure. Hyperkalemia. Progressive. 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 HCO3 normal Aspiration pneumonia, atelectasis. CT scan revealing moderate amount of material in the trachea and main proximal bronchi on my review-not really detailed on official report. Plan for FOB today but worsening K+ Shock. Off PRESSORS KLAUDIA/sepsis. Fever still noted. Head and sinus CT scan negative, see comments regarding chest CT scan . HIV. ID following see recommendations. 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 No gross bleeding Cardiomyopathy with ejection fraction of 25% Bradycardia,hyperkalemia- better. Also holding propofol, switching to fentanyl,versed Recommendations FOB today if possible Kayexalate Nephro f/u Taper FIO2 , PEEP as tolerated Maintain extubation precautions DVT prophylaxis PPI prophylaxis Adjust fentanyl , versed Discussed with patient mother in detail. Critical care time was 31 minutes of [id number] evaluation and coordination of care Subjective Date of service: 03/18/18 Principal diagnosis: Resp failure, atelectasis aspiration,HIV, hyperkalemia,se psis,low plt Interval history: Sedated and intubated Objective Vital Signs - 12hr 03/17/18 03/17/18 03/17/18 22:00 22:15 22:30 Temperature Pulse Rate 56 L 57 L 61 Pulse Rate [ From Monitor] Respiratory 20 19 20 Rate Blood Pressure 98/49 90/51 94/47 O2 Sat by Pulse 88 88 94 Oximetry 03/17/18 03/17/18 03/17/18 22:45 23:00 23:15 Temperature Pulse Rate 62 55 L 59 L Pulse Rate [ From Monitor] Respiratory 20 Rate Blood Pressure 93/51 93/49 89/45 O2 Sat by Pulse 96 90 97 Oximetry 03/17/18 03/17/18 03/17/18 23:26 23:30 23:33 Temperature 98.2 F Pulse Rate 56 L 61 Pulse Rate [ From Monitor] Respiratory 20 Rate Blood Pressure 89/45 91/48 O2 Sat by Pulse 94 96 Oximetry 03/17/18 03/17/18 03/18/18 23:45 23:56 00:00 Temperature Pulse Rate 59 L 65 63 Pulse Rate [ 53 L From Monitor] Respiratory 20 Rate Blood Pressure 95/48 95/48 95/48 O2 Sat by Pulse 89 98 93 Oximetry 03/18/18 03/18/18 03/18/18 00:15 00:30 00:45 Temperature Pulse Rate 61 58 L 61 Pulse Rate [ From Monitor] Respiratory 20 20 20 Rate Blood Pressure 86/44 89/47 92/45 O2 Sat by Pulse 100 100 99 Oximetry 03/18/18 03/18/18 03/18/18 01:00 01:16 01:30 Temperature Pulse Rate 61 51 L 59 L Pulse Rate [ From Monitor] Respiratory 20 12 12 Rate Blood Pressure 91/46 111/60 107/58 O2 Sat by Pulse 97 97 91 Oximetry 03/18/18 03/18/18 03/18/18 01:46 02:00 02:15 Temperature Pulse Rate 61 62 70 Pulse Rate [ From Monitor] Respiratory 15 13 15 Rate Blood Pressure 112/59 112/62 104/68 O2 Sat by Pulse 88 89 90 Oximetry 03/18/18 03/18/18 03/18/18 02:30 02:46 03:00 Temperature Pulse Rate 79 66 82 Pulse Rate [ From Monitor] Respiratory 15 18 16 Rate Blood Pressure 127/56 127/56 134/62 O2 Sat by Pulse 92 90 98 Oximetry 03/18/18 03/18/18 03/18/18 03:15 03:28 03:30 Temperature 100.3 F H Pulse Rate 91 H 92 H Pulse Rate [ From Monitor] Respiratory 17 19 Rate Blood Pressure 119/65 126/65 O2 Sat by Pulse 98 92 Oximetry 03/18/18 03/18/18 03/18/18 03:45 04:00 04:05 Temperature Pulse Rate 72 70 66 Pulse Rate [ 79 From Monitor] Respiratory 22 18 Rate Blood Pressure 119/58 114/56 109/54 O2 Sat by Pulse 88 87 92 Oximetry 03/18/18 03/18/18 03/18/18 04:15 04:30 04:45 Temperature Pulse Rate 88 68 63 Pulse Rate [ From Monitor] Respiratory 19 14 14 Rate Blood Pressure 108/57 119/53 109/54 O2 Sat by Pulse 95 87 88 Oximetry 03/18/18 03/18/18 03/18/18 05:00 05:15 05:30 Temperature Pulse Rate 68 61 65 Pulse Rate [ From Monitor] Respiratory 8 L 12 11 L Rate Blood Pressure 109/51 104/54 111/54 O2 Sat by Pulse 89 92 93 Oximetry 03/18/18 03/18/18 03/18/18 05:45 06:00 06:15 Temperature Pulse Rate 60 67 65 Pulse Rate [ From Monitor] Respiratory 12 19 20 Rate Blood Pressure 101/51 101/48 95/48 O2 Sat by Pulse 92 92 93 Oximetry 03/18/18 03/18/18 03/18/18 06:30 06:45 09:08 Temperature Pulse Rate 64 64 65 Pulse Rate [ From Monitor] Respiratory 20 17 Rate Blood Pressure 96/55 107/58 119/58 O2 Sat by Pulse 94 97 92 Oximetry Constitutional: appears uncomfortable Eyes: non-icteric ENT: oropharynx dry, other (orally intubated and sedated) Neck: supple Effort: mildly labored Ascultation: Bilateral: clear, diminished breath sounds, rhonchi Percussion: Bilateral: not dull Cardiovascular: regular rate and rhythm Gastrointestinal: normoactive bowel sounds, non-tender Integumentary: normal Extremities: no cyanosis, no edema, pink and warm Neurologic: unable to assess, other (RA SS -1) CBC and BMP: 03/18/18 04:16 03/18/18 04:16 ABG, PT/INR, D-dimer: ABG POC ABG pH 7.429 (7.35-7.45) 03/18/18 04:48 POC ABG pCO2 40.5 (35-45) 03/18/18 04:48 POC ABG pO2 54 (80-105) L 03/18/18 04:48 POC ABG HCO3 26.8 03/18/18 04:48 POC ABG Total CO2 28 03/18/18 04:48 POC ABG O2 Sat 88 03/18/18 04:48 PT/INR, D-dimer PT 17.2 Sec. (12.2-14.9) H 03/10/18 18:15 INR 1.36 (0.87-1.13) H 03/10/18 18:15 Abnormal lab findings: Abnormal Labs 03/09/18 03/09/18 03/09/18 07:00 07:00 07:00 WBC RBC Hgb Hct RDW 15.5 H Plt Count 25 L Seg Neuts % (Manual) 90.0 H Lymphocytes % (Manual) 5.0 L Monocytes % (Manual) Seg Neutrophils # Man Abs Lymphs (Manual) Lymphocytes # (Manual) 0.4 L Monocytes # (Manual) PT 22.9 H INR 1.98 H APTT Fibrinogen POC ABG pH POC ABG pCO2 POC ABG pO2 VBG pH Sodium 135 L Potassium Chloride 90.8 L Carbon Dioxide 17 L BUN 45 H Creatinine 5.8 H Glucose 72 L POC Glucose Lactic Acid Calcium 7.6 L Phosphorus Magnesium Iron Ferritin Total Bilirubin Direct Bilirubin Alkaline Phosphatase 154 H Lactate Dehydrogenase Total Creatine Kinase NT-Pro-B Natriuret Pep Total Protein Albumin 3.6 L Triglycerides Vitamin B12 Folate Urine WBC (Auto) Urine Creatinine Urine Total Protein Complement C3 Lymph Enumerat CD4/CD8 Absolute CD3 Count % CD4 Cells Absolute CD4 Count % CD8 Cells HIV-1 RNA PCR copies/ml HIV-1 RNA (PCR) log 03/09/18 03/09/18 03/09/18 07:00 07:00 07:00 WBC RBC Hgb Hct RDW Plt Count Seg Neuts % (Manual) Lymphocytes % (Manual) Monocytes % (Manual) Seg Neutrophils # Man Abs Lymphs (Manual) Lymphocytes # (Manual) Monocytes # (Manual) PT INR APTT Fibrinogen POC ABG pH POC ABG pCO2 POC ABG pO2 VBG pH 7.297 L Sodium Potassium Chloride Carbon Dioxide BUN Creatinine Glucose POC Glucose Lactic Acid 6.80 H* Calcium Phosphorus 5.40 H Magnesium 1.20 L Iron Ferritin Total Bilirubin Direct Bilirubin Alkaline Phosphatase Lactate Dehydrogenase Total Creatine Kinase 228 H NT-Pro-B Natriuret Pep Total Protein Albumin Triglycerides Vitamin B12 Folate Urine WBC (Auto) Urine Creatinine Urine Total Protein Complement C3 Lymph Enumerat CD4/CD8 Absolute CD3 Count % CD4 Cells Absolute CD4 Count % CD8 Cells HIV-1 RNA PCR copies/ml HIV-1 RNA (PCR) log 03/09/18 03/09/18 03/09/18 09:22 12:36 14:39 WBC RBC Hgb Hct RDW Plt Count Seg Neuts % (Manual) Lymphocytes % (Manual) Monocytes % (Manual) Seg Neutrophils # Man Abs Lymphs (Manual) Lymphocytes # (Manual) Monocytes # (Manual) PT INR APTT Fibrinogen POC ABG pH POC ABG pCO2 POC ABG pO2 VBG pH Sodium Potassium Chloride Carbon Dioxide BUN Creatinine Glucose POC Glucose Lactic Acid 5.90 H* 8.30 H* Calcium Phosphorus Magnesium Iron Ferritin Total Bilirubin Direct Bilirubin Alkaline Phosphatase Lactate Dehydrogenase Total Creatine Kinase NT-Pro-B Natriuret Pep Total Protein Albumin Triglycerides Vitamin B12 Folate Urine WBC (Auto) 86.0 H Urine Creatinine Urine Total Protein Complement C3 Lymph Enumerat CD4/CD8 Absolute CD3 Count % CD4 Cells Absolute CD4 Count % CD8 Cells HIV-1 RNA PCR copies/ml HIV-1 RNA (PCR) log 03/09/18 03/09/18 03/09/18 14:39 14:39 15:12 WBC RBC Hgb Hct RDW Plt Count Seg Neuts % (Manual) Lymphocytes % (Manual) Monocytes % (Manual) Seg Neutrophils # Man Abs Lymphs (Manual) Lymphocytes # (Manual) Monocytes # (Manual) PT INR APTT Fibrinogen POC ABG pH POC ABG pCO2 POC ABG pO2 VBG pH Sodium Potassium Chloride Carbon Dioxide BUN Creatinine Glucose POC Glucose Lactic Acid 5.90 H* Calcium Phosphorus Magnesium Iron Ferritin Total Bilirubin Direct Bilirubin Alkaline Phosphatase Lactate Dehydrogenase Total Creatine Kinase NT-Pro-B Natriuret Pep Total Protein Albumin Triglycerides Vitamin B12 Folate Urine WBC (Auto) Urine Creatinine 217.1 H 210.7 H Urine Total Protein 820 H Complement C3 Lymph Enumerat CD4/CD8 Absolute CD3 Count % CD4 Cells Absolute CD4 Count % CD8 Cells HIV-1 RNA PCR copies/ml HIV-1 RNA (PCR) log 03/09/18 03/09/18 03/09/18 15:53 18:20 20:39 WBC RBC Hgb Hct RDW Plt Count Seg Neuts % (Manual) Lymphocytes % (Manual) Monocytes % (Manual) Seg Neutrophils # Man Abs Lymphs (Manual) Lymphocytes # (Manual) Monocytes # (Manual) PT INR APTT Fibrinogen POC ABG pH POC ABG pCO2 POC ABG pO2 VBG pH Sodium Potassium Chloride Carbon Dioxide BUN Creatinine Glucose POC Glucose 56 L Lactic Acid 5.10 H* 4.40 H* Calcium Phosphorus Magnesium Iron Ferritin Total Bilirubin Direct Bilirubin Alkaline Phosphatase Lactate Dehydrogenase Total Creatine Kinase NT-Pro-B Natriuret Pep Total Protein Albumin Triglycerides Vitamin B12 Folate Urine WBC (Auto) Urine Creatinine Urine Total Protein Complement C3 Lymph Enumerat CD4/CD8 Absolute CD3 Count % CD4 Cells Absolute CD4 Count % CD8 Cells HIV-1 RNA PCR copies/ml HIV-1 RNA (PCR) log 03/09/18 03/09/18 03/09/18 20:39 21:33 23:08 WBC RBC Hgb Hct RDW Plt Count Seg Neuts % (Manual) Lymphocytes % (Manual) Monocytes % (Manual) Seg Neutrophils # Man Abs Lymphs (Manual) Lymphocytes # (Manual) Monocytes # (Manual) PT INR APTT Fibrinogen POC ABG pH POC ABG pCO2 POC ABG pO2 VBG pH Sodium Potassium Chloride Carbon Dioxide BUN Creatinine Glucose POC Glucose Lactic Acid 4.90 H* 4.10 H* Calcium Phosphorus Magnesium Iron Ferritin Total Bilirubin Direct Bilirubin Alkaline Phosphatase Lactate Dehydrogenase Total Creatine Kinase NT-Pro-B Natriuret Pep Total Protein Albumin Triglycerides Vitamin B12 Folate Urine WBC (Auto) Urine Creatinine Urine Total Protein Complement C3 77 L Lymph Enumerat CD4/CD8 Absolute CD3 Count % CD4 Cells Absolute CD4 Count % CD8 Cells HIV-1 RNA PCR copies/ml HIV-1 RNA (PCR) log 03/10/18 03/10/18 03/10/18 01:00 04:40 04:40 WBC 11.8 H RBC Hgb 11.7 L Hct RDW Plt Count 8 L* Seg Neuts % (Manual) 93.0 H Lymphocytes % (Manual) 4.0 L Monocytes % (Manual) Seg Neutrophils # Man 11.0 H Abs Lymphs (Manual) Lymphocytes # (Manual) 0.5 L Monocytes # (Manual) PT INR APTT Fibrinogen POC ABG pH POC ABG pCO2 POC ABG pO2 VBG pH Sodium 136 L Potassium Chloride 96.6 L Carbon Dioxide 21 L BUN 62 H Creatinine 4.9 H Glucose POC Glucose Lactic Acid 4.10 H* Calcium 6.2 L D Phosphorus Magnesium Iron Ferritin Total Bilirubin Direct Bilirubin Alkaline Phosphatase Lactate Dehydrogenase Total Creatine Kinase NT-Pro-B Natriuret Pep Total Protein Albumin Triglycerides Vitamin B12 Folate Urine WBC (Auto) Urine Creatinine Urine Total Protein Complement C3 Lymph Enumerat CD4/CD8 Absolute CD3 Count % CD4 Cells Absolute CD4 Count % CD8 Cells HIV-1 RNA PCR copies/ml HIV-1 RNA (PCR) log 03/10/18 03/10/18 03/10/18 05:32 06:00 09:10 WBC RBC Hgb Hct RDW Plt Count Seg Neuts % (Manual) Lymphocytes % (Manual) Monocytes % (Manual) Seg Neutrophils # Man Abs Lymphs (Manual) Lymphocytes # (Manual) Monocytes # (Manual) PT INR APTT Fibrinogen POC ABG pH 7.254 L POC ABG pCO2 47.8 H POC ABG pO2 59 L VBG pH Sodium Potassium Chloride Carbon Dioxide BUN Creatinine Glucose POC Glucose 56 L Lactic Acid Calcium Phosphorus Magnesium Iron Ferritin Total Bilirubin Direct Bilirubin Alkaline Phosphatase Lactate Dehydrogenase Total Creatine Kinase NT-Pro-B Natriuret Pep Total Protein Albumin Triglycerides Vitamin B12 Folate Urine WBC (Auto) 32.0 H Urine Creatinine Urine Total Protein Complement C3 Lymph Enumerat CD4/CD8 Absolute CD3 Count % CD4 Cells Absolute CD4 Count % CD8 Cells HIV-1 RNA PCR copies/ml HIV-1 RNA (PCR) log 03/10/18 03/10/18 03/10/18 09:14 11:16 11:16 WBC RBC Hgb Hct RDW Plt Count Seg Neuts % (Manual) Lymphocytes % (Manual) Monocytes % (Manual) Seg Neutrophils # Man Abs Lymphs (Manual) Lymphocytes # (Manual) Monocytes # (Manual) PT INR APTT Fibrinogen POC ABG pH 7.266 L POC ABG pCO2 POC ABG pO2 VBG pH Sodium Potassium Chloride Carbon Dioxide BUN Creatinine Glucose POC Glucose Lactic Acid Calcium Phosphorus Magnesium Iron Ferritin Total Bilirubin Direct Bilirubin Alkaline Phosphatase Lactate Dehydrogenase 338 H Total Creatine Kinase 404 H NT-Pro-B Natriuret Pep 64145 H Total Protein Albumin Triglycerides Vitamin B12 Folate Urine WBC (Auto) Urine Creatinine Urine Total Protein Complement C3 Lymph Enumerat CD4/CD8 Absolute CD3 Count % CD4 Cells Absolute CD4 Count % CD8 Cells HIV-1 RNA PCR copies/ml HIV-1 RNA (PCR) log 03/10/18 03/10/18 03/10/18 11:51 18:15 18:15 WBC RBC Hgb Hct RDW Plt Count Seg Neuts % (Manual) Lymphocytes % (Manual) Monocytes % (Manual) Seg Neutrophils # Man Abs Lymphs (Manual) Lymphocytes # (Manual) Monocytes # (Manual) PT 17.2 H 17.0 H INR 1.36 H 1.34 H APTT 38.5 H Fibrinogen 852 H POC ABG pH POC ABG pCO2 POC ABG pO2 VBG pH Sodium Potassium Chloride Carbon Dioxide BUN Creatinine Glucose POC Glucose 109 H Lactic Acid Calcium Phosphorus Magnesium Iron Ferritin Total Bilirubin Direct Bilirubin Alkaline Phosphatase Lactate Dehydrogenase Total Creatine Kinase NT-Pro-B Natriuret Pep Total Protein Albumin Triglycerides Vitamin B12 Folate Urine WBC (Auto) Urine Creatinine Urine Total Protein Complement C3 Lymph Enumerat CD4/CD8 Absolute CD3 Count % CD4 Cells Absolute CD4 Count % CD8 Cells HIV-1 RNA PCR copies/ml HIV-1 RNA (PCR) log 03/10/18 03/10/18 03/10/18 18:15 18:15 19:45 WBC RBC Hgb Hct RDW Plt Count Seg Neuts % (Manual) Lymphocytes % (Manual) Monocytes % (Manual) Seg Neutrophils # Man Abs Lymphs (Manual) 779 L Lymphocytes # (Manual) Monocytes # (Manual) PT INR APTT Fibrinogen POC ABG pH POC ABG pCO2 POC ABG pO2 VBG pH Sodium Potassium Chloride Carbon Dioxide BUN Creatinine Glucose POC Glucose 136 H Lactic Acid Calcium Phosphorus Magnesium Iron Ferritin Total Bilirubin Direct Bilirubin Alkaline Phosphatase Lactate Dehydrogenase Total Creatine Kinase NT-Pro-B Natriuret Pep Total Protein Albumin Triglycerides Vitamin B12 Folate Urine WBC (Auto) Urine Creatinine Urine Total Protein Complement C3 Lymph Enumerat CD4/CD8 0.56 L Absolute CD3 Count 524 L % CD4 Cells 24 L Absolute CD4 Count 194 L % CD8 Cells 43 H HIV-1 RNA PCR copies/ml 39124 H HIV-1 RNA (PCR) log 4.71 H 03/10/18 03/10/18 03/10/18 20:40 22:07 23:06 WBC RBC Hgb Hct RDW Plt Count Seg Neuts % (Manual) Lymphocytes % (Manual) Monocytes % (Manual) Seg Neutrophils # Man Abs Lymphs (Manual) Lymphocytes # (Manual) Monocytes # (Manual) PT INR APTT Fibrinogen POC ABG pH POC ABG pCO2 POC ABG pO2 VBG pH Sodium Potassium Chloride Carbon Dioxide BUN Creatinine Glucose POC Glucose 135 H 135 H 133 H Lactic Acid Calcium Phosphorus Magnesium Iron Ferritin Total Bilirubin Direct Bilirubin Alkaline Phosphatase Lactate Dehydrogenase Total Creatine Kinase NT-Pro-B Natriuret Pep Total Protein Albumin Triglycerides Vitamin B12 Folate Urine WBC (Auto) Urine Creatinine Urine Total Protein Complement C3 Lymph Enumerat CD4/CD8 Absolute CD3 Count % CD4 Cells Absolute CD4 Count % CD8 Cells HIV-1 RNA PCR copies/ml HIV-1 RNA (PCR) log 03/11/18 03/11/18 03/11/18 00:07 02:01 03:10 WBC RBC Hgb Hct RDW Plt Count Seg Neuts % (Manual) Lymphocytes % (Manual) Monocytes % (Manual) Seg Neutrophils # Man Abs Lymphs (Manual) Lymphocytes # (Manual) Monocytes # (Manual) PT INR APTT Fibrinogen POC ABG pH POC ABG pCO2 POC ABG pO2 VBG pH Sodium Potassium Chloride Carbon Dioxide BUN Creatinine Glucose POC Glucose 148 H 161 H 189 H Lactic Acid Calcium Phosphorus Magnesium Iron Ferritin Total Bilirubin Direct Bilirubin Alkaline Phosphatase Lactate Dehydrogenase Total Creatine Kinase NT-Pro-B Natriuret Pep Total Protein Albumin Triglycerides Vitamin B12 Folate Urine WBC (Auto) Urine Creatinine Urine Total Protein Complement C3 Lymph Enumerat CD4/CD8 Absolute CD3 Count % CD4 Cells Absolute CD4 Count % CD8 Cells HIV-1 RNA PCR copies/ml HIV-1 RNA (PCR) log 03/11/18 03/11/18 03/11/18 04:12 04:50 04:50 WBC 12.8 H RBC Hgb 10.9 L Hct 32.5 L RDW 15.3 H Plt Count 17 L* D Seg Neuts % (Manual) 96.0 H Lymphocytes % (Manual) 2.0 L Monocytes % (Manual) Seg Neutrophils # Man 12.3 H Abs Lymphs (Manual) Lymphocytes # (Manual) 0.3 L Monocytes # (Manual) PT INR APTT Fibrinogen POC ABG pH POC ABG pCO2 POC ABG pO2 VBG pH Sodium Potassium Chloride 94.2 L Carbon Dioxide BUN 62 H Creatinine 2.7 H Glucose 191 H POC Glucose 188 H Lactic Acid Calcium 7.9 L D Phosphorus Magnesium Iron Ferritin Total Bilirubin Direct Bilirubin Alkaline Phosphatase Lactate Dehydrogenase Total Creatine Kinase NT-Pro-B Natriuret Pep Total Protein Albumin Triglycerides Vitamin B12 Folate Urine WBC (Auto) Urine Creatinine Urine Total Protein Complement C3 Lymph Enumerat CD4/CD8 Absolute CD3 Count % CD4 Cells Absolute CD4 Count % CD8 Cells HIV-1 RNA PCR copies/ml HIV-1 RNA (PCR) log 03/11/18 03/11/18 03/11/18 05:30 05:33 07:47 WBC RBC Hgb Hct RDW Plt Count Seg Neuts % (Manual) Lymphocytes % (Manual) Monocytes % (Manual) Seg Neutrophils # Man Abs Lymphs (Manual) Lymphocytes # (Manual) Monocytes # (Manual) PT INR APTT Fibrinogen POC ABG pH POC ABG pCO2 POC ABG pO2 58 L VBG pH Sodium Potassium Chloride Carbon Dioxide BUN Creatinine Glucose POC Glucose 187 H 151 H Lactic Acid Calcium Phosphorus Magnesium Iron Ferritin Total Bilirubin Direct Bilirubin Alkaline Phosphatase Lactate Dehydrogenase Total Creatine Kinase NT-Pro-B Natriuret Pep Total Protein Albumin Triglycerides Vitamin B12 Folate Urine WBC (Auto) Urine Creatinine Urine Total Protein Complement C3 Lymph Enumerat CD4/CD8 Absolute CD3 Count % CD4 Cells Absolute CD4 Count % CD8 Cells HIV-1 RNA PCR copies/ml HIV-1 RNA (PCR) log 03/11/18 03/11/18 03/11/18 12:11 13:18 14:26 WBC RBC Hgb Hct RDW Plt Count Seg Neuts % (Manual) Lymphocytes % (Manual) Monocytes % (Manual) Seg Neutrophils # Man Abs Lymphs (Manual) Lymphocytes # (Manual) Monocytes # (Manual) PT INR APTT Fibrinogen POC ABG pH POC ABG pCO2 POC ABG pO2 VBG pH Sodium Potassium Chloride Carbon Dioxide BUN Creatinine Glucose POC Glucose 166 H 157 H 145 H Lactic Acid Calcium Phosphorus Magnesium Iron Ferritin Total Bilirubin Direct Bilirubin Alkaline Phosphatase Lactate Dehydrogenase Total Creatine Kinase NT-Pro-B Natriuret Pep Total Protein Albumin Triglycerides Vitamin B12 Folate Urine WBC (Auto) Urine Creatinine Urine Total Protein Complement C3 Lymph Enumerat CD4/CD8 Absolute CD3 Count % CD4 Cells Absolute CD4 Count % CD8 Cells HIV-1 RNA PCR copies/ml HIV-1 RNA (PCR) log 03/11/18 03/11/18 03/11/18 14:48 15:15 16:17 WBC 21.2 H RBC Hgb 11.0 L Hct 33.8 L RDW Plt Count 15 L* Seg Neuts % (Manual) 92.0 H Lymphocytes % (Manual) 4.0 L Monocytes % (Manual) Seg Neutrophils # Man 19.5 H Abs Lymphs (Manual) Lymphocytes # (Manual) 0.8 L Monocytes # (Manual) PT INR APTT Fibrinogen POC ABG pH POC ABG pCO2 POC ABG pO2 VBG pH Sodium Potassium Chloride Carbon Dioxide BUN Creatinine Glucose POC Glucose 139 H 145 H Lactic Acid Calcium Phosphorus Magnesium Iron Ferritin Total Bilirubin Direct Bilirubin Alkaline Phosphatase Lactate Dehydrogenase Total Creatine Kinase NT-Pro-B Natriuret Pep Total Protein Albumin Triglycerides Vitamin B12 Folate Urine WBC (Auto) Urine Creatinine Urine Total Protein Complement C3 Lymph Enumerat CD4/CD8 Absolute CD3 Count % CD4 Cells Absolute CD4 Count % CD8 Cells HIV-1 RNA PCR copies/ml HIV-1 RNA (PCR) log 03/11/18 03/11/18 03/11/18 17:48 20:16 21:02 WBC RBC Hgb Hct RDW Plt Count Seg Neuts % (Manual) Lymphocytes % (Manual) Monocytes % (Manual) Seg Neutrophils # Man Abs Lymphs (Manual) Lymphocytes # (Manual) Monocytes # (Manual) PT INR APTT Fibrinogen POC ABG pH POC ABG pCO2 POC ABG pO2 VBG pH Sodium Potassium Chloride Carbon Dioxide BUN Creatinine Glucose POC Glucose 142 H 158 H 146 H Lactic Acid Calcium Phosphorus Magnesium Iron Ferritin Total Bilirubin Direct Bilirubin Alkaline Phosphatase Lactate Dehydrogenase Total Creatine Kinase NT-Pro-B Natriuret Pep Total Protein Albumin Triglycerides Vitamin B12 Folate Urine WBC (Auto) Urine Creatinine Urine Total Protein Complement C3 Lymph Enumerat CD4/CD8 Absolute CD3 Count % CD4 Cells Absolute CD4 Count % CD8 Cells HIV-1 RNA PCR copies/ml HIV-1 RNA (PCR) log 03/11/18 03/12/18 03/12/18 23:14 00:54 06:19 WBC 29.6 H RBC Hgb 10.6 L Hct 31.3 L RDW Plt Count 51 L D Seg Neuts % (Manual) Lymphocytes % (Manual) Monocytes % (Manual) Seg Neutrophils # Man Abs Lymphs (Manual) Lymphocytes # (Manual) Monocytes # (Manual) PT INR APTT Fibrinogen POC ABG pH POC ABG pCO2 POC ABG pO2 VBG pH Sodium Potassium Chloride Carbon Dioxide BUN Creatinine Glucose POC Glucose 168 H 185 H Lactic Acid Calcium Phosphorus Magnesium Iron Ferritin Total Bilirubin Direct Bilirubin Alkaline Phosphatase Lactate Dehydrogenase Total Creatine Kinase NT-Pro-B Natriuret Pep Total Protein Albumin Triglycerides Vitamin B12 Folate Urine WBC (Auto) Urine Creatinine Urine Total Protein Complement C3 Lymph Enumerat CD4/CD8 Absolute CD3 Count % CD4 Cells Absolute CD4 Count % CD8 Cells HIV-1 RNA PCR copies/ml HIV-1 RNA (PCR) log 03/12/18 03/12/18 03/12/18 06:29 06:29 06:29 WBC 32.7 H RBC Hgb 10.5 L Hct 31.7 L RDW 15.3 H Plt Count 34 L Seg Neuts % (Manual) 81.5 H Lymphocytes % (Manual) 7.0 L Monocytes % (Manual) 7.5 H Seg Neutrophils # Man 26.7 H Abs Lymphs (Manual) Lymphocytes # (Manual) Monocytes # (Manual) 2.5 H PT INR APTT Fibrinogen POC ABG pH POC ABG pCO2 POC ABG pO2 VBG pH Sodium Potassium 3.4 L Chloride Carbon Dioxide BUN 69 H Creatinine 2.2 H Glucose 181 H POC Glucose Lactic Acid Calcium Phosphorus Magnesium Iron Ferritin Total Bilirubin 2.30 H Direct Bilirubin 1.5 H Alkaline Phosphatase Lactate Dehydrogenase Total Creatine Kinase NT-Pro-B Natriuret Pep Total Protein 6.2 L Albumin 3.1 L Triglycerides Vitamin B12 Folate Urine WBC (Auto) Urine Creatinine Urine Total Protein Complement C3 Lymph Enumerat CD4/CD8 Absolute CD3 Count % CD4 Cells Absolute CD4 Count % CD8 Cells HIV-1 RNA PCR copies/ml HIV-1 RNA (PCR) log 03/12/18 03/12/18 03/12/18 07:21 07:44 10:16 WBC RBC Hgb Hct RDW Plt Count Seg Neuts % (Manual) Lymphocytes % (Manual) Monocytes % (Manual) Seg Neutrophils # Man Abs Lymphs (Manual) Lymphocytes # (Manual) Monocytes # (Manual) PT INR APTT Fibrinogen POC ABG pH 7.337 L POC ABG pCO2 54.9 H POC ABG pO2 59 L VBG pH Sodium Potassium Chloride Carbon Dioxide BUN Creatinine Glucose POC Glucose 157 H 153 H Lactic Acid Calcium Phosphorus Magnesium Iron Ferritin Total Bilirubin Direct Bilirubin Alkaline Phosphatase Lactate Dehydrogenase Total Creatine Kinase NT-Pro-B Natriuret Pep Total Protein Albumin Triglycerides Vitamin B12 Folate Urine WBC (Auto) Urine Creatinine Urine Total Protein Complement C3 Lymph Enumerat CD4/CD8 Absolute CD3 Count % CD4 Cells Absolute CD4 Count % CD8 Cells HIV-1 RNA PCR copies/ml HIV-1 RNA (PCR) log 03/12/18 03/12/18 03/12/18 12:53 15:22 18:17 WBC RBC Hgb Hct RDW Plt Count Seg Neuts % (Manual) Lymphocytes % (Manual) Monocytes % (Manual) Seg Neutrophils # Man Abs Lymphs (Manual) Lymphocytes # (Manual) Monocytes # (Manual) PT INR APTT Fibrinogen POC ABG pH POC ABG pCO2 61.7 H POC ABG pO2 110 H VBG pH Sodium Potassium Chloride Carbon Dioxide BUN Creatinine Glucose POC Glucose 148 H 148 H Lactic Acid Calcium Phosphorus Magnesium Iron Ferritin Total Bilirubin Direct Bilirubin Alkaline Phosphatase Lactate Dehydrogenase Total Creatine Kinase NT-Pro-B Natriuret Pep Total Protein Albumin Triglycerides Vitamin B12 Folate Urine WBC (Auto) Urine Creatinine Urine Total Protein Complement C3 Lymph Enumerat CD4/CD8 Absolute CD3 Count % CD4 Cells Absolute CD4 Count % CD8 Cells HIV-1 RNA PCR copies/ml HIV-1 RNA (PCR) log 03/12/18 03/13/18 03/13/18 21:34 01:14 04:37 WBC RBC Hgb Hct RDW Plt Count Seg Neuts % (Manual) Lymphocytes % (Manual) Monocytes % (Manual) Seg Neutrophils # Man Abs Lymphs (Manual) Lymphocytes # (Manual) Monocytes # (Manual) PT INR APTT Fibrinogen POC ABG pH POC ABG pCO2 60.2 H POC ABG pO2 115 H VBG pH Sodium Potassium Chloride Carbon Dioxide BUN Creatinine Glucose POC Glucose 161 H 187 H Lactic Acid Calcium Phosphorus Magnesium Iron Ferritin Total Bilirubin Direct Bilirubin Alkaline Phosphatase Lactate Dehydrogenase Total Creatine Kinase NT-Pro-B Natriuret Pep Total Protein Albumin Triglycerides Vitamin B12 Folate Urine WBC (Auto) Urine Creatinine Urine Total Protein Complement C3 Lymph Enumerat CD4/CD8 Absolute CD3 Count % CD4 Cells Absolute CD4 Count % CD8 Cells HIV-1 RNA PCR copies/ml HIV-1 RNA (PCR) log 03/13/18 03/13/18 03/13/18 05:22 05:22 08:24 WBC 30.4 H RBC 3.45 L Hgb 9.8 L Hct 29.7 L RDW Plt Count 37 L Seg Neuts % (Manual) 75.5 H Lymphocytes % (Manual) 3.0 L Monocytes % (Manual) Seg Neutrophils # Man 23.0 H Abs Lymphs (Manual) Lymphocytes # (Manual) 0.9 L Monocytes # (Manual) PT INR APTT Fibrinogen POC ABG pH POC ABG pCO2 POC ABG pO2 VBG pH Sodium 146 H Potassium Chloride Carbon Dioxide 35 H D BUN 71 H Creatinine 1.7 H Glucose 187 H POC Glucose 210 H Lactic Acid Calcium Phosphorus Magnesium Iron Ferritin Total Bilirubin Direct Bilirubin Alkaline Phosphatase Lactate Dehydrogenase Total Creatine Kinase NT-Pro-B Natriuret Pep Total Protein Albumin Triglycerides Vitamin B12 Folate Urine WBC (Auto) Urine Creatinine Urine Total Protein Complement C3 Lymph Enumerat CD4/CD8 Absolute CD3 Count % CD4 Cells Absolute CD4 Count % CD8 Cells HIV-1 RNA PCR copies/ml HIV-1 RNA (PCR) log 03/13/18 03/13/18 03/13/18 12:22 12:44 17:27 WBC RBC Hgb Hct RDW Plt Count Seg Neuts % (Manual) Lymphocytes % (Manual) Monocytes % (Manual) Seg Neutrophils # Man Abs Lymphs (Manual) Lymphocytes # (Manual) Monocytes # (Manual) PT INR APTT Fibrinogen POC ABG pH POC ABG pCO2 POC ABG pO2 VBG pH Sodium Potassium Chloride Carbon Dioxide BUN Creatinine Glucose POC Glucose 208 H 169 H Lactic Acid Calcium Phosphorus Magnesium 3.00 H Iron Ferritin Total Bilirubin Direct Bilirubin Alkaline Phosphatase Lactate Dehydrogenase Total Creatine Kinase NT-Pro-B Natriuret Pep Total Protein Albumin Triglycerides Vitamin B12 Folate Urine WBC (Auto) Urine Creatinine Urine Total Protein Complement C3 Lymph Enumerat CD4/CD8 Absolute CD3 Count % CD4 Cells Absolute CD4 Count % CD8 Cells HIV-1 RNA PCR copies/ml HIV-1 RNA (PCR) log 03/13/18 03/14/18 03/14/18 23:35 04:29 05:23 WBC RBC Hgb Hct RDW Plt Count Seg Neuts % (Manual) Lymphocytes % (Manual) Monocytes % (Manual) Seg Neutrophils # Man Abs Lymphs (Manual) Lymphocytes # (Manual) Monocytes # (Manual) PT INR APTT Fibrinogen POC ABG pH 7.502 H POC ABG pCO2 53.2 H POC ABG pO2 VBG pH Sodium Potassium Chloride Carbon Dioxide BUN Creatinine Glucose POC Glucose 256 H 212 H Lactic Acid Calcium Phosphorus Magnesium Iron Ferritin Total Bilirubin Direct Bilirubin Alkaline Phosphatase Lactate Dehydrogenase Total Creatine Kinase NT-Pro-B Natriuret Pep Total Protein Albumin Triglycerides Vitamin B12 Folate Urine WBC (Auto) Urine Creatinine Urine Total Protein Complement C3 Lymph Enumerat CD4/CD8 Absolute CD3 Count % CD4 Cells Absolute CD4 Count % CD8 Cells HIV-1 RNA PCR copies/ml HIV-1 RNA (PCR) log 03/14/18 03/14/18 03/14/18 06:00 06:00 06:00 WBC 27.3 H RBC 3.52 L Hgb 10.0 L Hct 30.8 L RDW Plt Count 50 L Seg Neuts % (Manual) 87.0 H Lymphocytes % (Manual) 3.0 L Monocytes % (Manual) Seg Neutrophils # Man 23.8 H Abs Lymphs (Manual) Lymphocytes # (Manual) 0.8 L Monocytes # (Manual) 1.6 H PT INR APTT Fibrinogen POC ABG pH POC ABG pCO2 POC ABG pO2 VBG pH Sodium 156 H D Potassium Chloride 109.5 H Carbon Dioxide 37 H BUN 70 H Creatinine Glucose 202 H POC Glucose Lactic Acid Calcium Phosphorus Magnesium Iron Ferritin Total Bilirubin Direct Bilirubin Alkaline Phosphatase Lactate Dehydrogenase Total Creatine Kinase 17 L NT-Pro-B Natriuret Pep Total Protein Albumin Triglycerides Vitamin B12 Folate Urine WBC (Auto) Urine Creatinine Urine Total Protein Complement C3 Lymph Enumerat CD4/CD8 Absolute CD3 Count % CD4 Cells Absolute CD4 Count % CD8 Cells HIV-1 RNA PCR copies/ml HIV-1 RNA (PCR) log 03/14/18 03/14/18 03/14/18 07:00 07:00 07:00 WBC RBC Hgb Hct RDW Plt Count Seg Neuts % (Manual) Lymphocytes % (Manual) Monocytes % (Manual) Seg Neutrophils # Man Abs Lymphs (Manual) Lymphocytes # (Manual) Monocytes # (Manual) PT INR APTT Fibrinogen POC ABG pH POC ABG pCO2 POC ABG pO2 VBG pH Sodium Potassium Chloride Carbon Dioxide BUN Creatinine Glucose POC Glucose Lactic Acid Calcium Phosphorus Magnesium Iron 42 L Ferritin 532.4 H Total Bilirubin Direct Bilirubin Alkaline Phosphatase Lactate Dehydrogenase Total Creatine Kinase NT-Pro-B Natriuret Pep Total Protein Albumin Triglycerides Vitamin B12 1825 H Folate Urine WBC (Auto) Urine Creatinine Urine Total Protein Complement C3 Lymph Enumerat CD4/CD8 Absolute CD3 Count % CD4 Cells Absolute CD4 Count % CD8 Cells HIV-1 RNA PCR copies/ml HIV-1 RNA (PCR) log 03/14/18 03/14/18 03/14/18 07:00 07:00 13:01 WBC RBC Hgb Hct RDW Plt Count Seg Neuts % (Manual) Lymphocytes % (Manual) Monocytes % (Manual) Seg Neutrophils # Man Abs Lymphs (Manual) Lymphocytes # (Manual) Monocytes # (Manual) PT INR APTT Fibrinogen POC ABG pH POC ABG pCO2 POC ABG pO2 VBG pH Sodium Potassium Chloride Carbon Dioxide BUN Creatinine Glucose POC Glucose 201 H Lactic Acid Calcium Phosphorus Magnesium Iron Ferritin Total Bilirubin Direct Bilirubin Alkaline Phosphatase Lactate Dehydrogenase Total Creatine Kinase NT-Pro-B Natriuret Pep Total Protein Albumin Triglycerides 532 H Vitamin B12 Folate 6.29 L Urine WBC (Auto) Urine Creatinine Urine Total Protein Complement C3 Lymph Enumerat CD4/CD8 Absolute CD3 Count % CD4 Cells Absolute CD4 Count % CD8 Cells HIV-1 RNA PCR copies/ml HIV-1 RNA (PCR) log 03/14/18 03/14/18 03/14/18 17:37 21:04 23:30 WBC RBC Hgb Hct RDW Plt Count Seg Neuts % (Manual) Lymphocytes % (Manual) Monocytes % (Manual) Seg Neutrophils # Man Abs Lymphs (Manual) Lymphocytes # (Manual) Monocytes # (Manual) PT INR APTT Fibrinogen POC ABG pH POC ABG pCO2 POC ABG pO2 VBG pH Sodium 155 H Potassium Chloride 114.1 H Carbon Dioxide 33 H BUN 58 H Creatinine Glucose 166 H POC Glucose 179 H 167 H Lactic Acid Calcium Phosphorus Magnesium Iron Ferritin Total Bilirubin Direct Bilirubin Alkaline Phosphatase Lactate Dehydrogenase Total Creatine Kinase NT-Pro-B Natriuret Pep Total Protein Albumin Triglycerides Vitamin B12 Folate Urine WBC (Auto) Urine Creatinine Urine Total Protein Complement C3 Lymph Enumerat CD4/CD8 Absolute CD3 Count % CD4 Cells Absolute CD4 Count % CD8 Cells HIV-1 RNA PCR copies/ml HIV-1 RNA (PCR) log 03/15/18 03/15/18 03/15/18 04:44 04:44 04:44 WBC 26.0 H RBC Hgb 10.5 L Hct 33.0 L RDW Plt Count 70 L Seg Neuts % (Manual) 91.0 H Lymphocytes % (Manual) 6.0 L Monocytes % (Manual) Seg Neutrophils # Man 23.7 H Abs Lymphs (Manual) Lymphocytes # (Manual) Monocytes # (Manual) PT INR APTT Fibrinogen POC ABG pH POC ABG pCO2 POC ABG pO2 VBG pH Sodium 155 H Potassium Chloride 114.3 H Carbon Dioxide 31 H BUN 51 H Creatinine Glucose 173 H POC Glucose Lactic Acid Calcium Phosphorus Magnesium 2.80 H Iron Ferritin Total Bilirubin Direct Bilirubin Alkaline Phosphatase Lactate Dehydrogenase Total Creatine Kinase NT-Pro-B Natriuret Pep Total Protein Albumin Triglycerides Vitamin B12 Folate Urine WBC (Auto) Urine Creatinine Urine Total Protein Complement C3 Lymph Enumerat CD4/CD8 Absolute CD3 Count % CD4 Cells Absolute CD4 Count % CD8 Cells HIV-1 RNA PCR copies/ml HIV-1 RNA (PCR) log 03/15/18 03/15/18 03/15/18 04:53 06:36 17:25 WBC RBC Hgb Hct RDW Plt Count Seg Neuts % (Manual) Lymphocytes % (Manual) Monocytes % (Manual) Seg Neutrophils # Man Abs Lymphs (Manual) Lymphocytes # (Manual) Monocytes # (Manual) PT INR APTT Fibrinogen POC ABG pH POC ABG pCO2 59.0 H POC ABG pO2 112 H VBG pH Sodium Potassium Chloride Carbon Dioxide BUN Creatinine Glucose POC Glucose 199 H 138 H Lactic Acid Calcium Phosphorus Magnesium Iron Ferritin Total Bilirubin Direct Bilirubin Alkaline Phosphatase Lactate Dehydrogenase Total Creatine Kinase NT-Pro-B Natriuret Pep Total Protein Albumin Triglycerides Vitamin B12 Folate Urine WBC (Auto) Urine Creatinine Urine Total Protein Complement C3 Lymph Enumerat CD4/CD8 Absolute CD3 Count % CD4 Cells Absolute CD4 Count % CD8 Cells HIV-1 RNA PCR copies/ml HIV-1 RNA (PCR) log 03/15/18 03/16/18 03/16/18 23:20 03:59 05:01 WBC 21.9 H RBC Hgb 10.3 L Hct 32.5 L RDW Plt Count 88 L Seg Neuts % (Manual) 98.0 H Lymphocytes % (Manual) 2.0 L Monocytes % (Manual) Seg Neutrophils # Man 21.5 H Abs Lymphs (Manual) Lymphocytes # (Manual) 0.4 L Monocytes # (Manual) PT INR APTT Fibrinogen POC ABG pH POC ABG pCO2 46.6 H POC ABG pO2 50 L VBG pH Sodium Potassium Chloride Carbon Dioxide BUN Creatinine Glucose POC Glucose 182 H Lactic Acid Calcium Phosphorus Magnesium Iron Ferritin Total Bilirubin Direct Bilirubin Alkaline Phosphatase Lactate Dehydrogenase Total Creatine Kinase NT-Pro-B Natriuret Pep Total Protein Albumin Triglycerides Vitamin B12 Folate Urine WBC (Auto) Urine Creatinine Urine Total Protein Complement C3 Lymph Enumerat CD4/CD8 Absolute CD3 Count % CD4 Cells Absolute CD4 Count % CD8 Cells HIV-1 RNA PCR copies/ml HIV-1 RNA (PCR) log 03/16/18 03/16/18 03/16/18 05:01 05:01 05:29 WBC RBC Hgb Hct RDW Plt Count Seg Neuts % (Manual) Lymphocytes % (Manual) Monocytes % (Manual) Seg Neutrophils # Man Abs Lymphs (Manual) Lymphocytes # (Manual) Monocytes # (Manual) PT INR APTT Fibrinogen POC ABG pH POC ABG pCO2 POC ABG pO2 VBG pH Sodium 148 H Potassium 5.7 H Chloride 112.1 H Carbon Dioxide BUN 41 H Creatinine Glucose 234 H POC Glucose 257 H Lactic Acid Calcium Phosphorus Magnesium Iron Ferritin Total Bilirubin Direct Bilirubin Alkaline Phosphatase Lactate Dehydrogenase Total Creatine Kinase NT-Pro-B Natriuret Pep Total Protein Albumin Triglycerides 212 H Vitamin B12 Folate Urine WBC (Auto) Urine Creatinine Urine Total Protein Complement C3 Lymph Enumerat CD4/CD8 Absolute CD3 Count % CD4 Cells Absolute CD4 Count % CD8 Cells HIV-1 RNA PCR copies/ml HIV-1 RNA (PCR) log 03/16/18 03/16/18 03/16/18 11:30 15:56 17:28 WBC RBC Hgb Hct RDW Plt Count Seg Neuts % (Manual) Lymphocytes % (Manual) Monocytes % (Manual) Seg Neutrophils # Man Abs Lymphs (Manual) Lymphocytes # (Manual) Monocytes # (Manual) PT INR APTT Fibrinogen POC ABG pH POC ABG pCO2 POC ABG pO2 VBG pH Sodium Potassium 5.5 H Chloride Carbon Dioxide BUN 39 H Creatinine Glucose 186 H POC Glucose 186 H 153 H Lactic Acid Calcium Phosphorus Magnesium Iron Ferritin Total Bilirubin Direct Bilirubin Alkaline Phosphatase Lactate Dehydrogenase Total Creatine Kinase NT-Pro-B Natriuret Pep Total Protein Albumin Triglycerides Vitamin B12 Folate Urine WBC (Auto) Urine Creatinine Urine Total Protein Complement C3 Lymph Enumerat CD4/CD8 Absolute CD3 Count % CD4 Cells Absolute CD4 Count % CD8 Cells HIV-1 RNA PCR copies/ml HIV-1 RNA (PCR) log 03/16/18 03/17/18 03/17/18 23:48 04:25 04:25 WBC 13.9 H RBC 2.89 L Hgb 8.2 L Hct 27.8 L RDW Plt Count 85 L Seg Neuts % (Manual) 88.0 H Lymphocytes % (Manual) 4.0 L Monocytes % (Manual) Seg Neutrophils # Man 12.2 H Abs Lymphs (Manual) Lymphocytes # (Manual) 0.6 L Monocytes # (Manual) PT INR APTT Fibrinogen POC ABG pH POC ABG pCO2 POC ABG pO2 VBG pH Sodium Potassium 5.7 H Chloride 107.5 H Carbon Dioxide BUN 38 H Creatinine Glucose 165 H POC Glucose 131 H Lactic Acid Calcium Phosphorus Magnesium Iron Ferritin Total Bilirubin Direct Bilirubin Alkaline Phosphatase Lactate Dehydrogenase Total Creatine Kinase NT-Pro-B Natriuret Pep Total Protein Albumin Triglycerides Vitamin B12 Folate Urine WBC (Auto) Urine Creatinine Urine Total Protein Complement C3 Lymph Enumerat CD4/CD8 Absolute CD3 Count % CD4 Cells Absolute CD4 Count % CD8 Cells HIV-1 RNA PCR copies/ml HIV-1 RNA (PCR) log 03/17/18 03/17/18 03/17/18 04:25 04:51 05:39 WBC RBC Hgb Hct RDW Plt Count Seg Neuts % (Manual) Lymphocytes % (Manual) Monocytes % (Manual) Seg Neutrophils # Man Abs Lymphs (Manual) Lymphocytes # (Manual) Monocytes # (Manual) PT INR APTT Fibrinogen POC ABG pH POC ABG pCO2 45.4 H POC ABG pO2 174 H VBG pH Sodium Potassium Chloride Carbon Dioxide BUN Creatinine Glucose POC Glucose 140 H Lactic Acid Calcium Phosphorus Magnesium Iron Ferritin Total Bilirubin Direct Bilirubin Alkaline Phosphatase Lactate Dehydrogenase 232 H Total Creatine Kinase 33 L NT-Pro-B Natriuret Pep Total Protein Albumin Triglycerides Vitamin B12 Folate Urine WBC (Auto) Urine Creatinine Urine Total Protein Complement C3 Lymph Enumerat CD4/CD8 Absolute CD3 Count % CD4 Cells Absolute CD4 Count % CD8 Cells HIV-1 RNA PCR copies/ml HIV-1 RNA (PCR) log 03/17/18 03/17/18 03/17/18 11:51 14:40 17:40 WBC RBC Hgb Hct RDW Plt Count Seg Neuts % (Manual) Lymphocytes % (Manual) Monocytes % (Manual) Seg Neutrophils # Man Abs Lymphs (Manual) Lymphocytes # (Manual) Monocytes # (Manual) PT INR APTT Fibrinogen POC ABG pH POC ABG pCO2 POC ABG pO2 VBG pH Sodium Potassium Chloride Carbon Dioxide BUN 36 H Creatinine Glucose 107 H POC Glucose 122 H 113 H Lactic Acid Calcium Phosphorus Magnesium Iron Ferritin Total Bilirubin Direct Bilirubin Alkaline Phosphatase Lactate Dehydrogenase Total Creatine Kinase NT-Pro-B Natriuret Pep Total Protein Albumin Triglycerides Vitamin B12 Folate Urine WBC (Auto) Urine Creatinine Urine Total Protein Complement C3 Lymph Enumerat CD4/CD8 Absolute CD3 Count % CD4 Cells Absolute CD4 Count % CD8 Cells HIV-1 RNA PCR copies/ml HIV-1 RNA (PCR) log 03/18/18 03/18/18 03/18/18 04:16 04:16 04:48 WBC 14.9 H RBC Hgb 10.8 L Hct 33.3 L RDW Plt Count Seg Neuts % (Manual) 76.0 H Lymphocytes % (Manual) 5.0 L Monocytes % (Manual) Seg Neutrophils # Man 11.3 H Abs Lymphs (Manual) Lymphocytes # (Manual) 0.7 L Monocytes # (Manual) PT INR APTT Fibrinogen POC ABG pH POC ABG pCO2 POC ABG pO2 54 L VBG pH Sodium Potassium Chloride Carbon Dioxide BUN 34 H Creatinine Glucose 116 H POC Glucose Lactic Acid Calcium Phosphorus Magnesium Iron Ferritin Total Bilirubin Direct Bilirubin Alkaline Phosphatase Lactate Dehydrogenase Total Creatine Kinase NT-Pro-B Natriuret Pep Total Protein Albumin Triglycerides Vitamin B12 Folate Urine WBC (Auto) Urine Creatinine Urine Total Protein Complement C3 Lymph Enumerat CD4/CD8 Absolute CD3 Count % CD4 Cells Absolute CD4 Count % CD8 Cells HIV-1 RNA PCR copies/ml HIV-1 RNA (PCR) log 03/18/18 05:13 WBC RBC Hgb Hct RDW Plt Count Seg Neuts % (Manual) Lymphocytes % (Manual) Monocytes % (Manual) Seg Neutrophils # Man Abs Lymphs (Manual) Lymphocytes # (Manual) Monocytes # (Manual) PT INR APTT Fibrinogen POC ABG pH POC ABG pCO2 POC ABG pO2 VBG pH Sodium Potassium Chloride Carbon Dioxide BUN Creatinine Glucose POC Glucose 127 H Lactic Acid Calcium Phosphorus Magnesium Iron Ferritin Total Bilirubin Direct Bilirubin Alkaline Phosphatase Lactate Dehydrogenase Total Creatine Kinase NT-Pro-B Natriuret Pep Total Protein Albumin Triglycerides Vitamin B12 Folate Urine WBC (Auto) Urine Creatinine Urine Total Protein Complement C3 Lymph Enumerat CD4/CD8 Absolute CD3 Count % CD4 Cells Absolute CD4 Count % CD8 Cells HIV-1 RNA PCR copies/ml HIV-1 RNA (PCR) log Chest x-ray: report reviewed, image reviewed
--- NOTE | 2018-03-18 10:58 | Progress Note ---
Assessment and Plan Acute renal failure, prerenal azotemia vs. ischemic ATN from hypotension Lactic acidosis hypernatremia Nausea and vomiting, likely gastroenteritis Hyperkalemia Hypocalcemia Dilated Cardiomyopathy Acute Pulmonary Edema Thrombocytopenia Plan: - SCOTT resolved - hypernatremia resolved - hyperkalemia resolved, normal uric and phos - Cardiology, Hematology, Pulmonology, and ID on board - Off pressors - Renally dose meds - Strict intake and output will sign off, please re consult if needed Joseph Stratton MD [phone] Subjective Date of service: 03/18/18 Principal diagnosis: low plt Interval history: sedated and intubated, family at bedside, all questions answered Objective - Vital Signs Vital signs: Vital Signs - 12hr 03/17/18 03/17/18 03/17/18 23:00 23:15 23:26 Temperature Pulse Rate 55 L 59 L 56 L Pulse Rate [ From Monitor] Respiratory 19 20 19 Rate Blood Pressure 93/49 89/45 89/45 O2 Sat by Pulse 90 97 94 Oximetry 03/17/18 03/17/18 03/17/18 23:30 23:33 23:45 Temperature 98.2 F Pulse Rate 61 59 L Pulse Rate [ From Monitor] Respiratory 20 19 Rate Blood Pressure 91/48 95/48 O2 Sat by Pulse 96 89 Oximetry 03/17/18 03/18/18 03/18/18 23:56 00:00 00:15 Temperature Pulse Rate 65 63 61 Pulse Rate [ 53 L From Monitor] Respiratory 20 20 Rate Blood Pressure 95/48 95/48 86/44 O2 Sat by Pulse 98 93 100 Oximetry 03/18/18 03/18/18 03/18/18 00:30 00:45 01:00 Temperature Pulse Rate 58 L 61 61 Pulse Rate [ From Monitor] Respiratory 20 20 20 Rate Blood Pressure 89/47 92/45 91/46 O2 Sat by Pulse 100 99 97 Oximetry 03/18/18 03/18/18 03/18/18 01:16 01:30 01:46 Temperature Pulse Rate 51 L 59 L 61 Pulse Rate [ From Monitor] Respiratory 12 12 15 Rate Blood Pressure 111/60 107/58 112/59 O2 Sat by Pulse 97 91 88 Oximetry 03/18/18 03/18/18 03/18/18 02:00 02:15 02:30 Temperature Pulse Rate 62 70 79 Pulse Rate [ From Monitor] Respiratory 13 15 15 Rate Blood Pressure 112/62 104/68 127/56 O2 Sat by Pulse 89 90 92 Oximetry 03/18/18 03/18/18 03/18/18 02:46 03:00 03:15 Temperature Pulse Rate 66 82 91 H Pulse Rate [ From Monitor] Respiratory 18 16 17 Rate Blood Pressure 127/56 134/62 119/65 O2 Sat by Pulse 90 98 98 Oximetry 03/18/18 03/18/18 03/18/18 03:28 03:30 03:45 Temperature 100.3 F H Pulse Rate 92 H 72 Pulse Rate [ From Monitor] Respiratory 19 22 Rate Blood Pressure 126/65 119/58 O2 Sat by Pulse 92 88 Oximetry 03/18/18 03/18/18 03/18/18 04:00 04:05 04:15 Temperature Pulse Rate 70 66 88 Pulse Rate [ 79 From Monitor] Respiratory 18 19 Rate Blood Pressure 114/56 109/54 108/57 O2 Sat by Pulse 87 92 95 Oximetry 03/18/18 03/18/18 03/18/18 04:30 04:45 05:00 Temperature Pulse Rate 68 63 68 Pulse Rate [ From Monitor] Respiratory 14 14 8 L Rate Blood Pressure 119/53 109/54 109/51 O2 Sat by Pulse 87 88 89 Oximetry 03/18/18 03/18/18 03/18/18 05:15 05:30 05:45 Temperature Pulse Rate 61 65 60 Pulse Rate [ From Monitor] Respiratory 12 11 L 12 Rate Blood Pressure 104/54 111/54 101/51 O2 Sat by Pulse 92 93 92 Oximetry 03/18/18 03/18/18 03/18/18 06:00 06:15 06:30 Temperature Pulse Rate 67 65 64 Pulse Rate [ From Monitor] Respiratory 19 20 20 Rate Blood Pressure 101/48 95/48 96/55 O2 Sat by Pulse 92 93 94 Oximetry 03/18/18 03/18/18 06:45 09:08 Temperature Pulse Rate 64 65 Pulse Rate [ From Monitor] Respiratory 17 Rate Blood Pressure 107/58 119/58 O2 Sat by Pulse 97 92 Oximetry - General Appearance General appearance: intubated EENT: ATNC, PERRL Neck: no JVD, no carotid bruit Respiratory: Present: Rales, Ronchi Cardiology: regular, S1S2 Gastrointestinal: normoactive bowel sounds, no tenderness, no distended Integumentary: no rash, warm and dry Neurologic: other (sedated and intubated) Musculoskeletal: other (no edema in BLE) Psychiatric: other (sedated and intubated) - Lab 03/18/18 04:16 03/18/18 04:16 Most recent lab results Calcium 8.5 mg/dL (8.4-10.2) 03/18/18 04:16 Phosphorus 3.20 mg/dL (2.5-4.5) D 03/18/18 04:16 Magnesium 2.00 mg/dL (1.7-2.3) 03/17/18 04:25 Urine Creatinine 210.7 mg/dL (0.1-20.0) H 03/09/18 14:39 Urine Sodium 81 mmol/L 03/14/18 18:50 Urine Total Protein 820 mg/dL (5-11.8) H 03/09/18 14:39 Medications & Allergies - Medications Allergies/Adverse Reactions: Allergies clindamycin Allergy (Verified 03/09/18 06:43) Swelling Home Medications: Home Medications Medication Instructions Recorded Confirmed Last Taken Type No Known Home Medications [No 03/09/18 03/09/18 Unknown History Reported Home Medications] Active Medications: Generic Name Dose Route Start Last Admin Trade Name Freq PRN Reason Stop Dose Admin Lipase/Protease/Amylase 1 each 03/14/18 16:[address] 10,500 Unit FEEDTUBE PRN PRN For Clogged Feeding Tube Atovaquone 1,500 mg 03/11/18 20:00 03/18/18 09:22 Mepron PO 1,500 mg QDAY LIU Administration Clonazepam 1 mg 03/18/18 11:00 Klonopin PO Q8HR LIU Dextrose 50 ml 03/09/18 16:15 D50w (25gm) Syringe IV PRN PRN HYPOGLYCEMIA Fentanyl 50 mcg 03/14/18 09:44 03/18/18 02:38 Sublimaze IV 50 mcg Q2H PRN Administration Pain , Severe (7-10) Folic Acid 1 mg 03/15/18 10:00 03/18/18 09:22 Folvite PO 1 mg QDAY LIU Administration Haloperidol Lactate 5 mg 03/12/18 02:15 03/18/18 03:25 Haldol IV 5 mg Q6H PRN Administration Agitation Hydrophilic Ointment 1 applic 03/12/18 07:47 03/13/18 11:34 Vaseline Lip Therapy TP 1 applic Q2HR PRN Administration Dry Lips Norepinephrine 4 mg in 250 mls @ 7.5 mls/hr 03/09/18 23:45 03/12/18 13:57 Levophed Drip 4 Mg/Ns 250 Ml IV 0 mcg/min TITR LIU 0 mls/hr Titration Protocol 2 MCG/MIN Vasopressin 20 unit/ Sodium 101 mls @ 9.09 mls/hr 03/10/18 11:00 03/14/18 10:30 Chloride IV 0 units/min TITR LIU 0 mls/hr Titration Protocol 0.03 UNITS/MIN Propofol 1,000 mg in 100 mls @ 2.721 mls/hr 03/12/18 08:00 03/18/18 09:27 Diprivan 10 Mg/Ml IV 30 mcg/kg/min TITR LIU 16.326 mls/hr Titration Protocol 5 MCG/KG/MIN Cefepime HCl 2 gm in 100 mls @ 200 mls/hr 03/13/18 10:00 03/18/18 09:21 Maxipime/Ns 2 Gm/100 Ml IV 200 mls/hr Q12HR LIU Administration Fentanyl Citrate 2,000 mcg in 100 mls @ 4.535 mls/hr 03/14/18 10:00 03/18/18 08:26 Fentanyl Drip Premix IV 4 mcg/kg/hr TITR LIU 18.14 mls/hr Administration Protocol 1 MCG/KG/HR Midazolam HCl 100 mg/ Sodium 100 mls @ 2 mls/hr 03/15/18 19:00 03/18/18 07:25 Chloride IV 5 mg/hr TITR LIU 5 mls/hr Administration Protocol 2 MG/HR Dopamine HCl/Dextrose 800 mg in 250 mls @ 2.936 mls/hr 03/18/18 01:00 Intropin Drip 800 Mg/D5w 250 Ml IV TITR LIU Protocol 2 MCG/KG/MIN Insulin Human Lispro 0 unit 03/14/18 12:00 03/17/18 18:55 Humalog SUB-Q Not Given Q6HR LIU Protocol Lansoprazole 30 mg 03/14/18 10:00 03/18/18 09:24 Prevacid Solutab FEEDTUBE 30 mg QDAY LIU Administration Lidocaine 20 ml 03/18/18 11:00 Xylocaine 2% INFILTRATI 03/18/18 11:01 ONCE ONE Lorazepam 2 mg 03/15/18 17:14 03/18/18 08:42 Ativan IV 2 mg Q3H PRN Administration Agitation Midazolam HCl 2 mg 03/15/18 18:03 03/17/18 10:31 Versed IV 2 mg Q10MIN PRN Administration Sedation Morphine Sulfate 2 mg 03/14/18 05:25 03/14/18 07:49 Morphine IV 2 mg Q4H PRN Administration Pain, Moderate (4-6) Multi-Ingred Cream/Lotion/Oil/Oint 1 applic 03/12/18 07:47 Artificial Tears Ophth Oint OU Q4HR PRN Dry Eye(s) Ondansetron HCl 4 mg 03/14/18 08:00 Zofran IV Q8H PRN Nausea And Vomiting Prednisone 50 mg 03/18/18 10:00 Deltasone PO QDAY LIU Quetiapine Fumarate 50 mg 03/18/18 11:00 Seroquel PO BID LIU Senna/Docusate Sodium 2 tab 03/16/18 11:00 03/18/18 09:22 Senokot S PO 2 tab BID LIU Administration Simple Syrup 15 ml 03/14/18 16:04 Simple Syrup FEEDTUBE PRN PRN Hypoglycemia Simple Syrup 30 ml 03/14/18 16:04 Simple Syrup FEEDTUBE PRN PRN Hypoglycemia Sodium Chloride 10 ml 03/09/18 22:00 03/18/18 09:34 Sodium Chloride Flush Syringe 10 Ml IV 10 ml BID LIU Administration Sodium Chloride 10 ml 03/09/18 10:41 Sodium Chloride Flush Syringe 10 Ml IV PRN PRN LINE FLUSH
[2018-03-18] MEDS ORDERED: NACL 0.9% IR ONE (11:00)
[2018-03-18] MEDS ORDERED: XYLOCAINE 2% INFILTRATI ONE (11:00)
--- NOTE | 2018-03-18 11:41 | Progress Note ---
Assessment and Plan Cultures: 03/09/2018 blood culture: Hemophilus hemolyticus in both sets 03/09/2018 influenza rapid: Negative 03/10/2018 urine culture: Negative 03/12/2018 Resp culture: usual resp thomas. 03/12/2018 Crypto Ag serum: negative. 03/13/2018 blood culture: negative. A/P: 33/M with no medical history, admitted with: 1) Septic shock: resolved; etio ? H. flu bacteremia. 2) Acute respiratory failure: now on vent. Initial CXR not suggestive of pneumonia, low suspicion for PJP pneumonia especially since patient reported a good recent CD4 count. Repeat CXRs are probably more suggestive of fluid overload / pulmonary edema which has steadily been improving with diuretics. Anyways, patient on Atovaquone which will cover PJP. Avoiding Bactrim due to thrombocytopenia. 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 Initial CXR not suggestive of pneumonia. Repeat blood cultures neg. CT chest showed possible LLL infiltrate/atelectasis/mucous plugging 4) HIV positive: Apparently he has been HIV positive, used to be on meds - Genvoya but stopped taking it 6 months ago, states his last CD4 count was 400+. 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 improving. [id number] activity normal. No schistocytes. FELICIA neg, ANCA neg. C3 low (unclear significance), C4 normal. On steroids. Hematology following. 6) Cardiomyopathy: low EF. etiology unclear. ?HIV related. Cardiology following. Recs: - continue Cefepime 2 gm q12 hrs D9 of 10 - continue mepron (atovaquone) - f/u HIV-genotype MD [facility] C: [phone] O: [phone] F: [phone] Subjective Date of service: 03/18/18 Principal diagnosis: low plt Interval history: Patient sedated, intubated, on the vent. No other issues. Objective - Exam Narrative Exam: Physical Exam: Constitutional: sedated, intubated, on vent. Head, Ears, Nose: Normocephalic, atraumatic. External ears, nose normal Eyes: Conjunctivae/corneas clear. No icterus. No ptosis. Neck: Supple, no meningeal signs Oral: intubated Cardiovascular: S1, S2 normal, no murmur Respiratory: Good air entry, clear to auscultation bilaterally GI: bowel sounds normal. No peritoneal signs Musculoskeletal: No pedal edema, no cyanosis. Skin: No rash or abscess Hem/Lymphatic: No palpable cervical or supraclavicular nodes. No lymphangitis Psych: sedated Neurological: sedated, intubated, exam is limited - Constitutional Vitals: Vital Signs Temp Pulse Resp BP Pulse Ox 100.3 F H 65 17 119/58 92 03/18/18 03:28 03/18/18 09:08 03/18/18 06:45 03/18/18 09:08 03/18/18 09:08 Temperature -Last 24 Hours Temperature 100.3 F Temperature 98.2 F Temperature 98.5 F Temperature 98.1 F Temperature 97.8 F - Labs CBC & Chem 7: 03/18/18 04:16 03/18/18 04:16 Labs: Abnormal lab results 03/17/18 03/17/18 03/17/18 Range/Units 04:25 11:51 14:40 WBC (4.5-11.0) K/mm3 Hgb (11.8-15.2) gm/dl Hct (35.5-45.6) % Seg Neuts % (Manual) (40.0-70.0) % Lymphocytes % (Manual) (13.4-35.0) % Seg Neutrophils # Man (1.8-7.7) K/mm3 Lymphocytes # (Manual) (1.2-5.4) K/mm3 POC ABG pO2 (80-105) BUN 36 H (9-20) mg/dL Glucose 107 H (75-100) mg/dL POC Glucose 122 H (70-105) Lactate Dehydrogenase 232 H (91-180) units/L Total Creatine Kinase 33 L (55-170) units/L 03/17/18 03/18/18 03/18/18 Range/Units 17:40 04:16 04:16 WBC 14.9 H (4.5-11.0) K/mm3 Hgb 10.8 L (11.8-15.2) gm/dl Hct 33.3 L (35.5-45.6) % Seg Neuts % (Manual) 76.0 H (40.0-70.0) % Lymphocytes % (Manual) 5.0 L (13.4-35.0) % Seg Neutrophils # Man 11.3 H (1.8-7.7) K/mm3 Lymphocytes # (Manual) 0.7 L (1.2-5.4) K/mm3 POC ABG pO2 (80-105) BUN 34 H (9-20) mg/dL Glucose 116 H (75-100) mg/dL POC Glucose 113 H (70-105) Lactate Dehydrogenase (91-180) units/L Total Creatine Kinase (55-170) units/L 03/18/18 03/18/18 Range/Units 04:48 05:13 WBC (4.5-11.0) K/mm3 Hgb (11.8-15.2) gm/dl Hct (35.5-45.6) % Seg Neuts % (Manual) (40.0-70.0) % Lymphocytes % (Manual) (13.4-35.0) % Seg Neutrophils # Man (1.8-7.7) K/mm3 Lymphocytes # (Manual) (1.2-5.4) K/mm3 POC ABG pO2 54 L (80-105) BUN (9-20) mg/dL Glucose (75-100) mg/dL POC Glucose 127 H (70-105) Lactate Dehydrogenase (91-180) units/L Total Creatine Kinase (55-170) units/L
[2018-03-18] MEDS: HumaLOG SUB-Q SCH ×2 (12:00→18:41)
--- NOTE | 2018-03-18 12:18 | Procedure Note ---
Date of procedure: 03/18/18 Pre-op diagnosis: left lower lobe atelectasis, pneumonia, respiratory failure HIV Post-op diagnosis: same Procedure: BRONCHOSCOPY REPORT Procedure: Mr. Liu underwent bronchoscopy today after informed consent was obtained and discussed in detail with the patient finally .This was signed and placed on the patient chart. Patient was then taken to the endoscopy suite and standard timeout review was done. Patient had topical anesthetic with nasal lidocaine, 1 mL twice a day endotracheal tube followed by a flush of saline. The patient was already sedated under ventilatory support. Preop oxygenation at 100 percent was started 20 minutes before procedure. The patient BP was marginally low (90/60) due to sedatives but vital signs otherwise stable. Once sedated the scope was gently introduced through the endotracheal tube. The epiglottis and vocal cords were bypassed. The trachea and main jayden were inspected. The trachea was full of secretions, purulent at the MC and opening of the right and left mainstem bronchus level. Main jayden was slightly inflammatory but sharp and midline. Inspection of the right main, right upper lobe, bronchus intermedius, right middle lobe and right lower lobe segmental and subsegmental airways was done. Findings: Purulent secretions with partial plugging of the posterior medial segment of the right lower lobe noted. This was suctioned and removed thoroughly We then inspected the left main and left upper lobe lingular and left lower lobe segmental and subsegmental airways. Findings-abundant secretions at the LC1 to level with complete mucous plug obstruction of the opening of the left lower lobe. BAL done with removal of secretions and mucous plugging Complications: none. Samples: BAL for culture including AFB and fungus of the left lower lobe. Bronchi washings for cytology of the left lower lobe for PCP stains Postprocedure recommendations/orders: Back to prior ventilator support Nothing by mouth for 2 hours and then initiate diet if water tolerated Continue oxygen support and monitor oximetry postop Reviewed of findings with family after procedure. All questions answered. Anesthesia: MAC Surgeon: AVA WATERS Estimated blood loss: none Pathology: list (bronchial wash cytology, BAL culture) Specimen disposition: to lab Condition: stable Disposition: ICU
[2018-03-18] MEDS: DELTASONE PO SCH (12:59)
--- NOTE | 2018-03-18 14:24 | Progress Note ---
Assessment and Plan Assessment and plan: 33 yo with HIV infection. He initially presented with nausea, vomiting, general weakness and chills for 2 days. He was getting weaker, no Urine output therefore came to ED for evaluation. In ED, labs show acute kidney injury with metabolic acidosis thrombocytopenia. He was Sepic, hypotensive. Septic shock/Haemophilus hemolyticus bacteremia sp IVF and pressors, weaned off pressors Antibiotics per ID head and Sinus CT negative Thrombocytopenia, stable and improving, , no schistocytes seen on smear sp plt transfusion and steroids The patient's mother does not know that he is HIV positive, he would not like her to be informed about it. Acute hypoxic respiratory failure on MV >96 hours, intubated since 03/12/17 Pulmonary input appreciated, left hemidiaphragm is elevated, CT chest now shows partial left atelectesis, management per pulmonology sp bronch 03/18, fup cultures hyperkalemia medically rx, resolved HIV positive. Diagnosed 6 yrs ago, Stopped taking his medications over 6 months ago which was generally oriented. Last CD4 count was 400, current CD4 and HIV viral load are still pending SCOTT resolved, avoid nephrotoxins Hyponatremia,Hypoglycemia. treated and resolved Coagulopathy, improved Acute toxic metabolic encephalpathy has been agitated and hard to sedate, obtain UDS -cont iv sedation dvt ppx -scds in light of thrombocytopenia Critical care time 35 minutes The patient does not want his HIV status being discussed with his family. History Interval history: Patient has been agitated easily, requiring restraints and IV sedation No fevers, no seizures no vomiting Hospitalist Physical - Physical exam Narrative exam: General.: Appears well, no distress, nontoxic HEENT: Moist mucous membranes, extraocular muscles intact, no lymphadenopathy Neck: supple Cardiac: S1-S2 heard Lungs: Ventilated breath sounds Abdomen: soft , nontender, nondistended, bowel sounds positive Extremities: no edema clubbing or cyanosis Skin: no rash or lesions Neurologic: Intubated and sedated - Constitutional Vitals: Temp Pulse Resp BP Pulse Ox 100.3 F H 65 17 97/49 100 03/18/18 03:28 03/18/18 12:44 03/18/18 06:45 03/18/18 12:44 03/18/18 13:01 General appearance: Present: cachectic, other (chronically ill-appearing) Results - Labs CBC & Chem 7: 03/18/18 04:16 03/18/18 04:16 Labs: Laboratory Last Values WBC 14.9 K/mm3 (4.5-11.0) H 03/18/18 04:16 RBC 3.80 M/mm3 (3.65-5.03) 03/18/18 04:16 Hgb 10.8 gm/dl (11.8-15.2) L 03/18/18 04:16 Hct 33.3 % (35.5-45.6) L 03/18/18 04:16 MCV 88 fl (84-94) 03/18/18 04:16 MCH 28 pg (28-32) 03/18/18 04:16 MCHC 32 % (32-34) 03/18/18 04:16 RDW 14.3 % (13.2-15.2) 03/18/18 04:16 Plt Count 143 K/mm3 (140-440) 03/18/18 04:16 Eos % (Auto) Microfilm Technician 03/09/18 07:00 Add Manual Diff Complete 03/18/18 04:16 Total Counted 100 03/18/18 04:16 Seg Neutrophils % Microfilm Technician 03/18/18 04:16 Seg Neuts % (Manual) 76.0 % (40.0-70.0) H 03/18/18 04:16 Band Neutrophils % 16.0 % 03/18/18 04:16 Lymphocytes % (Manual) 5.0 % (13.4-35.0) L 03/18/18 04:16 Reactive Lymphs % (Man) 0 % 03/18/18 04:16 Monocytes % (Manual) 3.0 % (0.0-7.3) 03/18/18 04:16 Eosinophils % (Manual) 0 % (0.0-4.3) 03/18/18 04:16 Basophils % (Manual) 0 % (0.0-1.8) 03/18/18 04:16 Metamyelocytes % 0 % 03/18/18 04:16 Myelocytes % 0 % 03/18/18 04:16 Promyelocytes % 0 % 03/18/18 04:16 Blast Cells % 0 % 03/18/18 04:16 Nucleated RBC % Not Reportable 03/18/18 04:16 Seg Neutrophils # Man 11.3 K/mm3 (1.8-7.7) H 03/18/18 04:16 Band Neutrophils # 2.4 K/mm3 03/18/18 04:16 Abs Lymphs (Manual) 779 cells/uL (850-3900) L 03/10/18 18:15 Lymphocytes # (Manual) 0.7 K/mm3 (1.2-5.4) L 03/18/18 04:16 Abs React Lymphs (Man) 0.0 K/mm3 03/18/18 04:16 Monocytes # (Manual) 0.4 K/mm3 (0.0-0.8) 03/18/18 04:16 Eosinophils # (Manual) 0.0 K/mm3 (0.0-0.4) 03/18/18 04:16 Basophils # (Manual) 0.0 K/mm3 (0.0-0.1) 03/18/18 04:16 Metamyelocytes # 0.0 K/mm3 03/18/18 04:16 Myelocytes # 0.0 K/mm3 03/18/18 04:16 Promyelocytes # 0.0 K/mm3 03/18/18 04:16 Blast Cells # 0.0 K/mm3 03/18/18 04:16 Pathologist Review 03/12/18 06:29 WBC Morphology Not Reportable 03/18/18 04:16 Hypersegmented Neuts Not Reportable 03/18/18 04:16 Hyposegmented Neuts Not Reportable 03/18/18 04:16 Hypogranular Neuts Not Reportable 03/18/18 04:16 Smudge Cells Not Reportable 03/18/18 04:16 Toxic Granulation Not Reportable 03/18/18 04:16 Toxic Vacuolation Not Reportable 03/18/18 04:16 Dohle Bodies Not Reportable 03/18/18 04:16 Pelger-Huet Anomaly Not Reportable 03/18/18 04:16 Kamar Rods Not Reportable 03/18/18 04:16 Platelet Estimate Consistent w auto 03/18/18 04:16 Clumped Platelets Not Reportable 03/18/18 04:16 Plt Clumps, EDTA Not Reportable 03/18/18 04:16 Large Platelets Not Reportable 03/18/18 04:16 Giant Platelets Not Reportable 03/18/18 04:16 Platelet Satelliting Not Reportable 03/18/18 04:16 Plt Morphology Comment Not Reportable 03/18/18 04:16 RBC Morphology Not Reportable 03/18/18 04:16 Dimorphic RBCs Not Reportable 03/18/18 04:16 Polychromasia Not Reportable 03/18/18 04:16 Hypochromasia Few 03/18/18 04:16 Poikilocytosis Not Reportable 03/18/18 04:16 Anisocytosis Few 03/18/18 04:16 Microcytosis Not Reportable 03/18/18 04:16 Macrocytosis Not Reportable 03/18/18 04:16 Spherocytes Not Reportable 03/18/18 04:16 Pappenheimer Bodies Not Reportable 03/18/18 04:16 Sickle Cells Not Reportable 03/18/18 04:16 Target Cells Not Reportable 03/18/18 04:16 Tear Drop Cells Not Reportable 03/18/18 04:16 Ovalocytes Rare 03/18/18 04:16 Stomatocytes Rare 03/14/18 06:00 Helmet Cells Not Reportable 03/18/18 04:16 [place] Bodies Not Reportable 03/18/18 04:16 [place] Rings Not Reportable 03/18/18 04:16 [place] Cells Not Reportable 03/18/18 04:16 Bite Cells Not Reportable 03/18/18 04:16 Crenated Cell Not Reportable 03/18/18 04:16 Elliptocytes Not Reportable 03/18/18 04:16 Acanthocytes (Spur) Not Reportable 03/18/18 04:16 Rouleaux Not Reportable 03/18/18 04:16 Hemoglobin C Crystals Not Reportable 03/18/18 04:16 Schistocytes Not Reportable 03/18/18 04:16 Malaria parasites Not Reportable 03/18/18 04:16 Jose Bodies Not Reportable 03/18/18 04:16 Hem Pathologist Commnt No 03/18/18 04:16 PT 17.2 Sec. (12.2-14.9) H 03/10/18 18:15 INR 1.36 (0.87-1.13) H 03/10/18 18:15 APTT 38.5 Sec. (24.2-36.6) H 03/10/18 18:15 Fibrinogen 852 mg/dl (211-480) H 03/10/18 18:15 POC ABG pH 7.429 (7.35-7.45) 03/18/18 04:48 POC ABG pCO2 40.5 (35-45) 03/18/18 04:48 POC ABG pO2 54 (80-105) L 03/18/18 04:48 POC ABG HCO3 26.8 03/18/18 04:48 POC ABG Total CO2 28 03/18/18 04:48 POC ABG O2 Sat 88 03/18/18 04:48 POC ABG Base Excess 2 03/18/18 04:48 VBG pH 7.297 (7.320-7.420) L 03/09/18 07:00 FiO2 65 % 03/18/18 04:48 Sodium 144 mmol/L (137-145) 03/18/18 04:16 Potassium 4.6 mmol/L (3.6-5.0) 03/18/18 04:16 Chloride 106.4 mmol/L (98-107) 03/18/18 04:16 Carbon Dioxide 27 mmol/L (22-30) 03/18/18 04:16 Anion Gap 15 mmol/L 03/18/18 04:16 BUN 34 mg/dL (9-20) H 03/18/18 04:16 Creatinine 0.8 mg/dL (0.8-1.5) 03/18/18 04:16 Estimated GFR > 60 ml/min 03/18/18 04:16 BUN/Creatinine Ratio 43 % 03/18/18 04:16 Glucose 116 mg/dL (75-100) H 03/18/18 04:16 POC Glucose 127 (70-105) H 03/18/18 05:13 Osmolality 256 Mosm/kg 03/14/18 07:00 Lactic Acid 4.10 mmol/L (0.7-2.0) H* 03/10/18 01:00 Uric Acid 3.5 mg/dL (3.5-7.6) 03/17/18 04:25 Calcium 8.5 mg/dL (8.4-10.2) 03/18/18 04:16 Phosphorus 3.20 mg/dL (2.5-4.5) D 03/18/18 04:16 Magnesium 2.00 mg/dL (1.7-2.3) 03/17/18 04:25 Iron 42 ug/dL (49-181) L 03/14/18 07:00 TIBC 262 mcg/dL (250-450) 03/14/18 07:00 Ferritin 532.4 ng/mL (13.0-400.0) H 03/14/18 07:00 Total Bilirubin 2.30 mg/dL (0.1-1.2) H 03/12/18 06:29 Direct Bilirubin 1.5 mg/dL (0-0.2) H 03/12/18 06:29 Indirect Bilirubin 0.8 mg/dL 03/12/18 06:29 AST 33 units/L (5-40) 03/12/18 06:29 ALT 48 units/L (7-56) 03/12/18 06:29 Alkaline Phosphatase 111 units/L (35-129) 03/12/18 06:29 Lactate Dehydrogenase 232 units/L (91-180) H 03/17/18 04:25 Total Creatine Kinase 33 units/L (55-170) L 03/17/18 04:25 NT-Pro-B Natriuret Pep 91910 pg/mL (0-450) H 03/10/18 11:16 Total Protein 6.2 g/dL (6.3-8.2) L 03/12/18 06:29 Albumin 3.1 g/dL (3.9-5) L 03/12/18 06:29 Albumin/Globulin Ratio 1.0 % 03/12/18 06:29 Triglycerides 212 mg/dL (2-149) H 03/16/18 05:01 Vitamin B12 1825 pg/mL (211-911) H 03/14/18 07:00 Folate 6.29 ng/mL (7.3-26.0) L 03/14/18 07:00 Urine Color Red (Yellow) 03/10/18 06:00 Urine Turbidity Cloudy (Clear) 03/10/18 06:00 Urine pH 5.0 (5.0-7.0) 03/10/18 06:00 Ur Specific [place] 1.009 (1.003-1.030) 03/10/18 06:00 Urine Protein 100 mg/dl mg/dL (Negative) 03/10/18 06:00 Urine Glucose (UA) Neg mg/dL (Negative) 03/10/18 06:00 Urine Ketones Neg mg/dL (Negative) 03/10/18 06:00 Urine Blood Lg (Negative) 03/10/18 06:00 Urine Nitrite Neg (Negative) 03/10/18 06:00 Urine Bilirubin Neg (Negative) 03/10/18 06:00 Urine Urobilinogen < 2.0 mg/dL (<2.0) 03/10/18 06:00 Ur Leukocyte Esterase Neg (Negative) 03/10/18 06:00 Urine WBC (Auto) 32.0 /HPF (0.0-6.0) H 03/10/18 06:00 Urine RBC (Auto) > 182.0 /HPF (0.0-6.0) 03/10/18 06:00 U Epithel Cells (Auto) 5.0 /HPF (0-13.0) 03/09/18 14:39 Urine Bacteria (Auto) 2+ /HPF (Negative) 03/10/18 06:00 Urine WBC Clumps Few /HPF 03/09/18 14:39 Amorphous Crystals 3+ 03/10/18 06:00 Granular Casts 29 /LPF 03/10/18 06:00 Urine Creatinine 210.7 mg/dL (0.1-20.0) H 03/09/18 14:39 Protein/Creatinin Ratio 3.89 03/09/18 14:39 Urine Sodium 81 mmol/L 03/14/18 18:50 Urine Total Protein 820 mg/dL (5-11.8) H 03/09/18 14:39 Urine Opiates Screen Presumptive negative 03/16/18 Unknown Urine Methadone Screen Presumptive negative 03/16/18 Unknown Ur Barbiturates Screen Presumptive negative 03/16/18 Unknown Ur Phencyclidine Scrn Presumptive negative 03/16/18 Unknown Ur Amphetamines Screen Presumptive negative 03/16/18 Unknown U Benzodiazepines Scrn Presumptive negative 03/16/18 Unknown Urine Cocaine Screen Presumptive negative 03/16/18 Unknown U Marijuana (THC) Screen Presumptive positive 03/16/18 Unknown Drugs of Abuse Note Disclamer 03/16/18 Unknown FELICIA Screen Negative (Negative) 03/10/18 11:16 Proteinase 3 (PR3) Ab <1.0 AI (<1.0) 03/10/18 11:16 Myeloperoxidase Ab <1.0 AI (<1.0) 03/10/18 11:16 Glomerular Base Mem IgG See scanned result 03/10/18 11:16 Complement C3 83 mg/dL (82-185) 03/10/18 11:16 Complement C4 30 mg/dL (15-53) 03/10/18 11:16 Lymph Enumerat CD4/CD8 0.56 (0.86-5.00) L 03/10/18 18:15 % CD3 Cells 67 % (57-85) 03/10/18 18:15 Absolute CD3 Count 524 cells/uL (840-3060) L 03/10/18 18:15 % CD4 Cells 24 % (30-61) L 03/10/18 18:15 Absolute CD4 Count 194 cells/uL (490-1740) L 03/10/18 18:15 % CD8 Cells 43 % (12-42) H 03/10/18 18:15 Absolute CD8 Count 344 cells/uL (180-1170) 03/10/18 18:15 % CD19 Cells 25 % (6-29) 03/10/18 18:15 Absolute CD19 Count 188 cells/uL (110-660) 03/10/18 18:15 Hepatitis A IgM Ab Non-reactive (NonReactive) 03/09/18 20:39 Hep Bs Antigen Non-reactive (Negative) 03/09/18 20:39 Hep B Core IgM Ab Non-reactive (NonReactive) 03/09/18 20:39 Hepatitis C Antibody Non-reactive (NonReactive) 03/09/18 20:39 HIV-1 Antibody See scanned result 03/09/18 20:39 HIV-1 RNA PCR copies/ml 12272 Copies/mL H 03/10/18 18:15 HIV-1 RNA (PCR) log 4.71 Log cps/mL H 03/10/18 18:15 HIV-2 Ab (Immunoblot) See scanned result 03/09/18 20:39 HIV 1&2 Antibody Rapid Reactive (Non React) 03/09/18 20:39 HIV P24 Antigen Non react (Non React) 03/09/18 20:39 Influenza A (Rapid) Negative (Negative) 03/09/18 Unknown Influenza B (Rapid) Negative (Negative) 03/09/18 Unknown Schistocytes Smear Rare 03/10/18 11:16 Miscellaneous Test Flexitest 1 03/12/18 16:45 Blood Type O POSITIVE 03/09/18 12:36 Antibody Screen Negative 03/09/18 12:36 Nutrition/Malnutrition Assess - Dietary Evaluation Nutrition/Malnutrition Findings: Nutrition Notes Start: 03/12/18 12:51 Freq: Status: Active Protocol: Document 03/18/18 13:00 OCTAVIO (Rec: 03/18/18 13:15 OCTAVIO [email or web address]) Co-Sign 03/18/18 13:00 LP Nutrition Notes Initial or Follow up Reassessment Current Diagnosis Acute Kidney Injury Sepsis Respiratory Failure Other Pertinent Diagnosis HIV Current Diet NPO Labs/Tests BUN:34 Pertinent Medications propofol at 13.604 ml/hr (359 kcals) Height 5 ft 11 in Weight 78.3 kg [place] Body Weight (lbs) 172.0 BMI 24.0 Subjective/Other Information F/u for TF tolerance. Pt had bronchoscopy secondary to aspiration. Based on results, MD requested TF to be held. Percent of energy/protein needs met: 0%/0% Burn Absent Trauma Absent #2 Nutrition Diagnosis Inadequate oral intake Diagnosis Progress(for reassessment Continues documentation) Is patient on ventilator? Yes Is Patient Ambulatory and/or Out of Bed No REE-(Hickman-St. Jeor-confined to bed) [phone] Calculation Used for Recommendations Hickman-St Jeor Additional Notes Protein needs are 109-181g (1. 2-2g/kg) Fluid needs are 1ml/kcal Nutrition Intervention Change Diet Order: npo Goal #1 Monitor for TF restart Anticipated Discharge Needs: unable to determine at this time Follow-Up By: 03/19/18 Additional Comments f/u for TF restart and tolerance
[2018-03-19] MEDS: HumaLOG SUB-Q SCH ×6 (00:49→18:32)
[2018-03-19] MEDS: fentaNYL DRIP Premix 2,000 MCG/100 ML BAG IV SCH ×4 (03:36→23:24)
[2018-03-19] MEDS: DIPRIVAN 10 MG/ML 1,000 MG/100 ML BOTTLE IV SCH ×4 (03:38→23:16)
[2018-03-19] MEDS: MIDAZOLAM 100 MG in NACL 0.9% 80 ML IV SCH ×2 (03:40→23:25)
[2018-03-19 07:09] LABS: BUN/Creatinine Ratio 35; Blood Urea Nitrogen 28 mg/dL (9-20); Calcium 8.1 mg/dL (8.4-10.2); Hemolysis Index 4
[2018-03-19] MEDS: ATIVAN IV PRN (07:19)
[2018-03-19 07:26] LABS: Basophils % (Auto) 0.2 % (0.0-1.8); Eosinophils # (Auto) 0.1 K/mm3 (0.0-0.4); Eosinophils % (Auto) 0.5 % (0.0-4.3); Hematocrit 30.6 % (35.5-45.6); Hemoglobin 9.7 gm/dl (11.8-15.2); Lymphocytes # (Auto) 1.1 K/mm3 (1.2-5.4); Lymphocytes % (Auto) 8.4 % (13.4-35.0); Mean Corpuscular HGB Conc 32 % (32-34); Mean Corpuscular Volume 89 fl (84-94); Monocytes # (Auto) 0.5 K/mm3 (0.0-0.8); Monocytes % (Auto) 3.5 % (0.0-7.3); Platelet Count 156 K/mm3 (140-440); Red Blood Count 3.43 M/mm3 (3.65-5.03); Red Cell Distribution Width 14.4 % (13.2-15.2)
[2018-03-19] MEDS: FOLVITE PO SCH (10:25)
[2018-03-19] MEDS: DELTASONE PO SCH (10:26)
[2018-03-19] MEDS: PREVACID SOLUTAB FEEDTUBE SCH (10:26)
[2018-03-19] MEDS: SENOKOT S PO SCH ×2 (10:26→21:00)
[2018-03-19] MEDS: MEPRON PO SCH (10:27)
[2018-03-19] MEDS: SODIUM CHLORIDE FLUSH SYRINGE 10 ML IV SCH ×2 (11:20→21:02)
[2018-03-19] MEDS: HumuLIN R IV SCH (11:28)
[2018-03-19] MEDS: D50W (25GM) Vial IV SCH (11:28)
--- NOTE | 2018-03-19 11:47 | Progress Note ---
Assessment and Plan - Patient Problems (1) Acute respiratory failure Current Visit: Yes Status: Acute (2) Acute renal failure Current Visit: Yes Status: Acute (3) Dilated cardiomyopathy Current Visit: Yes Status: Acute (4) Sepsis Current Visit: Yes Status: Acute (5) Thrombocytopenia Current Visit: Yes Status: Acute Subjective Principal diagnosis: low plt Interval history: on vent sbt attempted Objective Vital Signs - 12hr 03/18/18 03/19/18 03/19/18 23:52 00:00 00:15 Temperature 99.9 F H Pulse Rate 94 H 93 H Pulse Rate [ From Monitor] Respiratory 20 19 Rate Blood Pressure 109/55 114/55 O2 Sat by Pulse 98 98 Oximetry 03/19/18 03/19/18 03/19/18 00:25 00:30 00:45 Temperature Pulse Rate 93 H 93 H 81 Pulse Rate [ From Monitor] Respiratory 20 13 Rate Blood Pressure 114/55 112/54 100/63 O2 Sat by Pulse 98 98 99 Oximetry 03/19/18 03/19/18 03/19/18 00:50 01:00 01:15 Temperature Pulse Rate 97 H 88 Pulse Rate [ 81 From Monitor] Respiratory 13 17 20 Rate Blood Pressure 117/61 111/59 O2 Sat by Pulse 99 99 98 Oximetry 03/19/18 03/19/18 03/19/18 01:30 01:45 02:00 Temperature Pulse Rate 84 85 82 Pulse Rate [ From Monitor] Respiratory 18 20 20 Rate Blood Pressure 104/54 97/49 94/48 O2 Sat by Pulse 98 98 97 Oximetry 03/19/18 03/19/18 03/19/18 02:15 02:30 02:45 Temperature Pulse Rate 82 83 81 Pulse Rate [ From Monitor] Respiratory 20 20 21 Rate Blood Pressure 90/45 92/48 88/48 O2 Sat by Pulse 97 97 97 Oximetry 03/19/18 03/19/18 03/19/18 03:00 03:15 03:30 Temperature Pulse Rate 75 78 77 Pulse Rate [ From Monitor] Respiratory 20 20 18 Rate Blood Pressure 91/48 91/50 99/50 O2 Sat by Pulse 98 99 99 Oximetry 03/19/18 03/19/18 03/19/18 03:36 03:45 03:51 Temperature 98.9 F Pulse Rate 80 81 Pulse Rate [ From Monitor] Respiratory 16 Rate Blood Pressure 103/55 103/55 O2 Sat by Pulse 99 99 Oximetry 03/19/18 03/19/18 03/19/18 04:00 04:15 04:30 Temperature Pulse Rate 83 80 84 Pulse Rate [ 83 From Monitor] Respiratory 17 18 17 Rate Blood Pressure 97/54 105/51 109/55 O2 Sat by Pulse 99 99 99 Oximetry 03/19/18 03/19/18 03/19/18 04:45 05:00 05:15 Temperature Pulse Rate 83 104 H 99 H Pulse Rate [ From Monitor] Respiratory 17 17 16 Rate Blood Pressure 114/62 113/68 118/66 O2 Sat by Pulse 99 98 98 Oximetry 03/19/18 03/19/18 03/19/18 05:30 05:45 06:00 Temperature Pulse Rate 99 H 109 H 100 H Pulse Rate [ From Monitor] Respiratory 27 H 20 18 Rate Blood Pressure 118/66 96/66 118/66 O2 Sat by Pulse 98 98 98 Oximetry 03/19/18 03/19/18 03/19/18 06:15 06:30 06:46 Temperature Pulse Rate 101 H 109 H 74 Pulse Rate [ From Monitor] Respiratory 18 14 23 Rate Blood Pressure 123/71 123/71 155/79 O2 Sat by Pulse 99 99 99 Oximetry 03/19/18 03/19/18 03/19/18 07:00 07:15 07:30 Temperature Pulse Rate 104 H 102 H 100 H Pulse Rate [ From Monitor] Respiratory 24 28 H 20 Rate Blood Pressure 116/57 130/69 100/53 O2 Sat by Pulse 100 98 99 Oximetry 03/19/18 03/19/18 03/19/18 07:45 08:00 08:15 Temperature 100.6 F H Pulse Rate 88 87 91 H Pulse Rate [ From Monitor] Respiratory 22 21 21 Rate Blood Pressure 111/49 106/51 95/53 O2 Sat by Pulse 90 90 89 Oximetry 03/19/18 03/19/18 03/19/18 08:30 08:45 09:00 Temperature Pulse Rate 92 H 97 H 89 Pulse Rate [ From Monitor] Respiratory 17 17 14 Rate Blood Pressure 100/52 110/55 104/52 O2 Sat by Pulse 92 93 92 Oximetry 03/19/18 03/19/18 03/19/18 09:12 09:15 09:30 Temperature Pulse Rate 106 H 117 H 104 H Pulse Rate [ From Monitor] Respiratory 22 19 18 Rate Blood Pressure 103/54 103/54 90/53 O2 Sat by Pulse 98 99 98 Oximetry 03/19/18 09:45 Temperature Pulse Rate 105 H Pulse Rate [ From Monitor] Respiratory 20 Rate Blood Pressure 106/57 O2 Sat by Pulse 99 Oximetry Constitutional: no acute distress, other (on vent [id number] Eyes: non-icteric ENT: oropharynx dry, other (orally intubated and sedated) Neck: supple Effort: mildly labored Ascultation: Bilateral: diminished breath sounds, rales (OCCASIONAL), rhonchi Percussion: Bilateral: not dull Cardiovascular: regular rate and rhythm, other (sinus tach) Gastrointestinal: normoactive bowel sounds, non-tender Integumentary: normal Extremities: no cyanosis, no edema, pink and warm Neurologic: unable to assess, other (RA SS -1) CBC and BMP: 03/19/18 06:00 03/19/18 06:00 ABG, PT/INR, D-dimer: ABG POC ABG pH 7.375 (7.35-7.45) 03/19/18 04:50 POC ABG pCO2 46.1 (35-45) H 03/19/18 04:50 POC ABG pO2 112 (80-105) H 03/19/18 04:50 POC ABG HCO3 27.0 03/19/18 04:50 POC ABG Total CO2 28 03/19/18 04:50 POC ABG O2 Sat 98 03/19/18 04:50 PT/INR, D-dimer PT 17.2 Sec. (12.2-14.9) H 03/10/18 18:15 INR 1.36 (0.87-1.13) H 03/10/18 18:15 Abnormal lab findings: Abnormal Labs 03/09/18 03/09/18 03/09/18 07:00 07:00 07:00 WBC RBC Hgb Hct RDW 15.5 H Plt Count 25 L Lymph % (Auto) Lymph # Seg Neutrophils % Seg Neuts % (Manual) 90.0 H Lymphocytes % (Manual) 5.0 L Monocytes % (Manual) Seg Neutrophils # Seg Neutrophils # Man Abs Lymphs (Manual) Lymphocytes # (Manual) 0.4 L Monocytes # (Manual) PT 22.9 H INR 1.98 H APTT Fibrinogen POC ABG pH POC ABG pCO2 POC ABG pO2 VBG pH Sodium 135 L Potassium Chloride 90.8 L Carbon Dioxide 17 L BUN 45 H Creatinine 5.8 H Glucose 72 L POC Glucose Lactic Acid Calcium 7.6 L Phosphorus Magnesium Iron Ferritin Total Bilirubin Direct Bilirubin Alkaline Phosphatase 154 H Lactate Dehydrogenase Total Creatine Kinase NT-Pro-B Natriuret Pep Total Protein Albumin 3.6 L Triglycerides Vitamin B12 Folate Urine WBC (Auto) Urine Creatinine Urine Total Protein Complement C3 Lymph Enumerat CD4/CD8 Absolute CD3 Count % CD4 Cells Absolute CD4 Count % CD8 Cells HIV-1 RNA PCR copies/ml HIV-1 RNA (PCR) log 03/09/18 03/09/18 03/09/18 07:00 07:00 07:00 WBC RBC Hgb Hct RDW Plt Count Lymph % (Auto) Lymph # Seg Neutrophils % Seg Neuts % (Manual) Lymphocytes % (Manual) Monocytes % (Manual) Seg Neutrophils # Seg Neutrophils # Man Abs Lymphs (Manual) Lymphocytes # (Manual) Monocytes # (Manual) PT INR APTT Fibrinogen POC ABG pH POC ABG pCO2 POC ABG pO2 VBG pH 7.297 L Sodium Potassium Chloride Carbon Dioxide BUN Creatinine Glucose POC Glucose Lactic Acid 6.80 H* Calcium Phosphorus 5.40 H Magnesium 1.20 L Iron Ferritin Total Bilirubin Direct Bilirubin Alkaline Phosphatase Lactate Dehydrogenase Total Creatine Kinase 228 H NT-Pro-B Natriuret Pep Total Protein Albumin Triglycerides Vitamin B12 Folate Urine WBC (Auto) Urine Creatinine Urine Total Protein Complement C3 Lymph Enumerat CD4/CD8 Absolute CD3 Count % CD4 Cells Absolute CD4 Count % CD8 Cells HIV-1 RNA PCR copies/ml HIV-1 RNA (PCR) log 03/09/18 03/09/18 03/09/18 09:22 12:36 14:39 WBC RBC Hgb Hct RDW Plt Count Lymph % (Auto) Lymph # Seg Neutrophils % Seg Neuts % (Manual) Lymphocytes % (Manual) Monocytes % (Manual) Seg Neutrophils # Seg Neutrophils # Man Abs Lymphs (Manual) Lymphocytes # (Manual) Monocytes # (Manual) PT INR APTT Fibrinogen POC ABG pH POC ABG pCO2 POC ABG pO2 VBG pH Sodium Potassium Chloride Carbon Dioxide BUN Creatinine Glucose POC Glucose Lactic Acid 5.90 H* 8.30 H* Calcium Phosphorus Magnesium Iron Ferritin Total Bilirubin Direct Bilirubin Alkaline Phosphatase Lactate Dehydrogenase Total Creatine Kinase NT-Pro-B Natriuret Pep Total Protein Albumin Triglycerides Vitamin B12 Folate Urine WBC (Auto) 86.0 H Urine Creatinine Urine Total Protein Complement C3 Lymph Enumerat CD4/CD8 Absolute CD3 Count % CD4 Cells Absolute CD4 Count % CD8 Cells HIV-1 RNA PCR copies/ml HIV-1 RNA (PCR) log 03/09/18 03/09/18 03/09/18 14:39 14:39 15:12 WBC RBC Hgb Hct RDW Plt Count Lymph % (Auto) Lymph # Seg Neutrophils % Seg Neuts % (Manual) Lymphocytes % (Manual) Monocytes % (Manual) Seg Neutrophils # Seg Neutrophils # Man Abs Lymphs (Manual) Lymphocytes # (Manual) Monocytes # (Manual) PT INR APTT Fibrinogen POC ABG pH POC ABG pCO2 POC ABG pO2 VBG pH Sodium Potassium Chloride Carbon Dioxide BUN Creatinine Glucose POC Glucose Lactic Acid 5.90 H* Calcium Phosphorus Magnesium Iron Ferritin Total Bilirubin Direct Bilirubin Alkaline Phosphatase Lactate Dehydrogenase Total Creatine Kinase NT-Pro-B Natriuret Pep Total Protein Albumin Triglycerides Vitamin B12 Folate Urine WBC (Auto) Urine Creatinine 217.1 H 210.7 H Urine Total Protein 820 H Complement C3 Lymph Enumerat CD4/CD8 Absolute CD3 Count % CD4 Cells Absolute CD4 Count % CD8 Cells HIV-1 RNA PCR copies/ml HIV-1 RNA (PCR) log 03/09/18 03/09/18 03/09/18 15:53 18:20 20:39 WBC RBC Hgb Hct RDW Plt Count Lymph % (Auto) Lymph # Seg Neutrophils % Seg Neuts % (Manual) Lymphocytes % (Manual) Monocytes % (Manual) Seg Neutrophils # Seg Neutrophils # Man Abs Lymphs (Manual) Lymphocytes # (Manual) Monocytes # (Manual) PT INR APTT Fibrinogen POC ABG pH POC ABG pCO2 POC ABG pO2 VBG pH Sodium Potassium Chloride Carbon Dioxide BUN Creatinine Glucose POC Glucose 56 L Lactic Acid 5.10 H* 4.40 H* Calcium Phosphorus Magnesium Iron Ferritin Total Bilirubin Direct Bilirubin Alkaline Phosphatase Lactate Dehydrogenase Total Creatine Kinase NT-Pro-B Natriuret Pep Total Protein Albumin Triglycerides Vitamin B12 Folate Urine WBC (Auto) Urine Creatinine Urine Total Protein Complement C3 Lymph Enumerat CD4/CD8 Absolute CD3 Count % CD4 Cells Absolute CD4 Count % CD8 Cells HIV-1 RNA PCR copies/ml HIV-1 RNA (PCR) log 03/09/18 03/09/18 03/09/18 20:39 21:33 23:08 WBC RBC Hgb Hct RDW Plt Count Lymph % (Auto) Lymph # Seg Neutrophils % Seg Neuts % (Manual) Lymphocytes % (Manual) Monocytes % (Manual) Seg Neutrophils # Seg Neutrophils # Man Abs Lymphs (Manual) Lymphocytes # (Manual) Monocytes # (Manual) PT INR APTT Fibrinogen POC ABG pH POC ABG pCO2 POC ABG pO2 VBG pH Sodium Potassium Chloride Carbon Dioxide BUN Creatinine Glucose POC Glucose Lactic Acid 4.90 H* 4.10 H* Calcium Phosphorus Magnesium Iron Ferritin Total Bilirubin Direct Bilirubin Alkaline Phosphatase Lactate Dehydrogenase Total Creatine Kinase NT-Pro-B Natriuret Pep Total Protein Albumin Triglycerides Vitamin B12 Folate Urine WBC (Auto) Urine Creatinine Urine Total Protein Complement C3 77 L Lymph Enumerat CD4/CD8 Absolute CD3 Count % CD4 Cells Absolute CD4 Count % CD8 Cells HIV-1 RNA PCR copies/ml HIV-1 RNA (PCR) log 03/10/18 03/10/18 03/10/18 01:00 04:40 04:40 WBC 11.8 H RBC Hgb 11.7 L Hct RDW Plt Count 8 L* Lymph % (Auto) Lymph # Seg Neutrophils % Seg Neuts % (Manual) 93.0 H Lymphocytes % (Manual) 4.0 L Monocytes % (Manual) Seg Neutrophils # Seg Neutrophils # Man 11.0 H Abs Lymphs (Manual) Lymphocytes # (Manual) 0.5 L Monocytes # (Manual) PT INR APTT Fibrinogen POC ABG pH POC ABG pCO2 POC ABG pO2 VBG pH Sodium 136 L Potassium Chloride 96.6 L Carbon Dioxide 21 L BUN 62 H Creatinine 4.9 H Glucose POC Glucose Lactic Acid 4.10 H* Calcium 6.2 L D Phosphorus Magnesium Iron Ferritin Total Bilirubin Direct Bilirubin Alkaline Phosphatase Lactate Dehydrogenase Total Creatine Kinase NT-Pro-B Natriuret Pep Total Protein Albumin Triglycerides Vitamin B12 Folate Urine WBC (Auto) Urine Creatinine Urine Total Protein Complement C3 Lymph Enumerat CD4/CD8 Absolute CD3 Count % CD4 Cells Absolute CD4 Count % CD8 Cells HIV-1 RNA PCR copies/ml HIV-1 RNA (PCR) log 03/10/18 03/10/18 03/10/18 05:32 06:00 09:10 WBC RBC Hgb Hct RDW Plt Count Lymph % (Auto) Lymph # Seg Neutrophils % Seg Neuts % (Manual) Lymphocytes % (Manual) Monocytes % (Manual) Seg Neutrophils # Seg Neutrophils # Man Abs Lymphs (Manual) Lymphocytes # (Manual) Monocytes # (Manual) PT INR APTT Fibrinogen POC ABG pH 7.254 L POC ABG pCO2 47.8 H POC ABG pO2 59 L VBG pH Sodium Potassium Chloride Carbon Dioxide BUN Creatinine Glucose POC Glucose 56 L Lactic Acid Calcium Phosphorus Magnesium Iron Ferritin Total Bilirubin Direct Bilirubin Alkaline Phosphatase Lactate Dehydrogenase Total Creatine Kinase NT-Pro-B Natriuret Pep Total Protein Albumin Triglycerides Vitamin B12 Folate Urine WBC (Auto) 32.0 H Urine Creatinine Urine Total Protein Complement C3 Lymph Enumerat CD4/CD8 Absolute CD3 Count % CD4 Cells Absolute CD4 Count % CD8 Cells HIV-1 RNA PCR copies/ml HIV-1 RNA (PCR) log 03/10/18 03/10/18 03/10/18 09:14 11:16 11:16 WBC RBC Hgb Hct RDW Plt Count Lymph % (Auto) Lymph # Seg Neutrophils % Seg Neuts % (Manual) Lymphocytes % (Manual) Monocytes % (Manual) Seg Neutrophils # Seg Neutrophils # Man Abs Lymphs (Manual) Lymphocytes # (Manual) Monocytes # (Manual) PT INR APTT Fibrinogen POC ABG pH 7.266 L POC ABG pCO2 POC ABG pO2 VBG pH Sodium Potassium Chloride Carbon Dioxide BUN Creatinine Glucose POC Glucose Lactic Acid Calcium Phosphorus Magnesium Iron Ferritin Total Bilirubin Direct Bilirubin Alkaline Phosphatase Lactate Dehydrogenase 338 H Total Creatine Kinase 404 H NT-Pro-B Natriuret Pep 22330 H Total Protein Albumin Triglycerides Vitamin B12 Folate Urine WBC (Auto) Urine Creatinine Urine Total Protein Complement C3 Lymph Enumerat CD4/CD8 Absolute CD3 Count % CD4 Cells Absolute CD4 Count % CD8 Cells HIV-1 RNA PCR copies/ml HIV-1 RNA (PCR) log 03/10/18 03/10/18 03/10/18 11:51 18:15 18:15 WBC RBC Hgb Hct RDW Plt Count Lymph % (Auto) Lymph # Seg Neutrophils % Seg Neuts % (Manual) Lymphocytes % (Manual) Monocytes % (Manual) Seg Neutrophils # Seg Neutrophils # Man Abs Lymphs (Manual) Lymphocytes # (Manual) Monocytes # (Manual) PT 17.2 H 17.0 H INR 1.36 H 1.34 H APTT 38.5 H Fibrinogen 852 H POC ABG pH POC ABG pCO2 POC ABG pO2 VBG pH Sodium Potassium Chloride Carbon Dioxide BUN Creatinine Glucose POC Glucose 109 H Lactic Acid Calcium Phosphorus Magnesium Iron Ferritin Total Bilirubin Direct Bilirubin Alkaline Phosphatase Lactate Dehydrogenase Total Creatine Kinase NT-Pro-B Natriuret Pep Total Protein Albumin Triglycerides Vitamin B12 Folate Urine WBC (Auto) Urine Creatinine Urine Total Protein Complement C3 Lymph Enumerat CD4/CD8 Absolute CD3 Count % CD4 Cells Absolute CD4 Count % CD8 Cells HIV-1 RNA PCR copies/ml HIV-1 RNA (PCR) log 03/10/18 03/10/18 03/10/18 18:15 18:15 19:45 WBC RBC Hgb Hct RDW Plt Count Lymph % (Auto) Lymph # Seg Neutrophils % Seg Neuts % (Manual) Lymphocytes % (Manual) Monocytes % (Manual) Seg Neutrophils # Seg Neutrophils # Man Abs Lymphs (Manual) 779 L Lymphocytes # (Manual) Monocytes # (Manual) PT INR APTT Fibrinogen POC ABG pH POC ABG pCO2 POC ABG pO2 VBG pH Sodium Potassium Chloride Carbon Dioxide BUN Creatinine Glucose POC Glucose 136 H Lactic Acid Calcium Phosphorus Magnesium Iron Ferritin Total Bilirubin Direct Bilirubin Alkaline Phosphatase Lactate Dehydrogenase Total Creatine Kinase NT-Pro-B Natriuret Pep Total Protein Albumin Triglycerides Vitamin B12 Folate Urine WBC (Auto) Urine Creatinine Urine Total Protein Complement C3 Lymph Enumerat CD4/CD8 0.56 L Absolute CD3 Count 524 L % CD4 Cells 24 L Absolute CD4 Count 194 L % CD8 Cells 43 H HIV-1 RNA PCR copies/ml 72098 H HIV-1 RNA (PCR) log 4.71 H 03/10/18 03/10/18 03/10/18 20:40 22:07 23:06 WBC RBC Hgb Hct RDW Plt Count Lymph % (Auto) Lymph # Seg Neutrophils % Seg Neuts % (Manual) Lymphocytes % (Manual) Monocytes % (Manual) Seg Neutrophils # Seg Neutrophils # Man Abs Lymphs (Manual) Lymphocytes # (Manual) Monocytes # (Manual) PT INR APTT Fibrinogen POC ABG pH POC ABG pCO2 POC ABG pO2 VBG pH Sodium Potassium Chloride Carbon Dioxide BUN Creatinine Glucose POC Glucose 135 H 135 H 133 H Lactic Acid Calcium Phosphorus Magnesium Iron Ferritin Total Bilirubin Direct Bilirubin Alkaline Phosphatase Lactate Dehydrogenase Total Creatine Kinase NT-Pro-B Natriuret Pep Total Protein Albumin Triglycerides Vitamin B12 Folate Urine WBC (Auto) Urine Creatinine Urine Total Protein Complement C3 Lymph Enumerat CD4/CD8 Absolute CD3 Count % CD4 Cells Absolute CD4 Count % CD8 Cells HIV-1 RNA PCR copies/ml HIV-1 RNA (PCR) log 03/11/18 03/11/18 03/11/18 00:07 02:01 03:10 WBC RBC Hgb Hct RDW Plt Count Lymph % (Auto) Lymph # Seg Neutrophils % Seg Neuts % (Manual) Lymphocytes % (Manual) Monocytes % (Manual) Seg Neutrophils # Seg Neutrophils # Man Abs Lymphs (Manual) Lymphocytes # (Manual) Monocytes # (Manual) PT INR APTT Fibrinogen POC ABG pH POC ABG pCO2 POC ABG pO2 VBG pH Sodium Potassium Chloride Carbon Dioxide BUN Creatinine Glucose POC Glucose 148 H 161 H 189 H Lactic Acid Calcium Phosphorus Magnesium Iron Ferritin Total Bilirubin Direct Bilirubin Alkaline Phosphatase Lactate Dehydrogenase Total Creatine Kinase NT-Pro-B Natriuret Pep Total Protein Albumin Triglycerides Vitamin B12 Folate Urine WBC (Auto) Urine Creatinine Urine Total Protein Complement C3 Lymph Enumerat CD4/CD8 Absolute CD3 Count % CD4 Cells Absolute CD4 Count % CD8 Cells HIV-1 RNA PCR copies/ml HIV-1 RNA (PCR) log 03/11/18 03/11/18 03/11/18 04:12 04:50 04:50 WBC 12.8 H RBC Hgb 10.9 L Hct 32.5 L RDW 15.3 H Plt Count 17 L* D Lymph % (Auto) Lymph # Seg Neutrophils % Seg Neuts % (Manual) 96.0 H Lymphocytes % (Manual) 2.0 L Monocytes % (Manual) Seg Neutrophils # Seg Neutrophils # Man 12.3 H Abs Lymphs (Manual) Lymphocytes # (Manual) 0.3 L Monocytes # (Manual) PT INR APTT Fibrinogen POC ABG pH POC ABG pCO2 POC ABG pO2 VBG pH Sodium Potassium Chloride 94.2 L Carbon Dioxide BUN 62 H Creatinine 2.7 H Glucose 191 H POC Glucose 188 H Lactic Acid Calcium 7.9 L D Phosphorus Magnesium Iron Ferritin Total Bilirubin Direct Bilirubin Alkaline Phosphatase Lactate Dehydrogenase Total Creatine Kinase NT-Pro-B Natriuret Pep Total Protein Albumin Triglycerides Vitamin B12 Folate Urine WBC (Auto) Urine Creatinine Urine Total Protein Complement C3 Lymph Enumerat CD4/CD8 Absolute CD3 Count % CD4 Cells Absolute CD4 Count % CD8 Cells HIV-1 RNA PCR copies/ml HIV-1 RNA (PCR) log 03/11/18 03/11/18 03/11/18 05:30 05:33 07:47 WBC RBC Hgb Hct RDW Plt Count Lymph % (Auto) Lymph # Seg Neutrophils % Seg Neuts % (Manual) Lymphocytes % (Manual) Monocytes % (Manual) Seg Neutrophils # Seg Neutrophils # Man Abs Lymphs (Manual) Lymphocytes # (Manual) Monocytes # (Manual) PT INR APTT Fibrinogen POC ABG pH POC ABG pCO2 POC ABG pO2 58 L VBG pH Sodium Potassium Chloride Carbon Dioxide BUN Creatinine Glucose POC Glucose 187 H 151 H Lactic Acid Calcium Phosphorus Magnesium Iron Ferritin Total Bilirubin Direct Bilirubin Alkaline Phosphatase Lactate Dehydrogenase Total Creatine Kinase NT-Pro-B Natriuret Pep Total Protein Albumin Triglycerides Vitamin B12 Folate Urine WBC (Auto) Urine Creatinine Urine Total Protein Complement C3 Lymph Enumerat CD4/CD8 Absolute CD3 Count % CD4 Cells Absolute CD4 Count % CD8 Cells HIV-1 RNA PCR copies/ml HIV-1 RNA (PCR) log 03/11/18 03/11/18 03/11/18 12:11 13:18 14:26 WBC RBC Hgb Hct RDW Plt Count Lymph % (Auto) Lymph # Seg Neutrophils % Seg Neuts % (Manual) Lymphocytes % (Manual) Monocytes % (Manual) Seg Neutrophils # Seg Neutrophils # Man Abs Lymphs (Manual) Lymphocytes # (Manual) Monocytes # (Manual) PT INR APTT Fibrinogen POC ABG pH POC ABG pCO2 POC ABG pO2 VBG pH Sodium Potassium Chloride Carbon Dioxide BUN Creatinine Glucose POC Glucose 166 H 157 H 145 H Lactic Acid Calcium Phosphorus Magnesium Iron Ferritin Total Bilirubin Direct Bilirubin Alkaline Phosphatase Lactate Dehydrogenase Total Creatine Kinase NT-Pro-B Natriuret Pep Total Protein Albumin Triglycerides Vitamin B12 Folate Urine WBC (Auto) Urine Creatinine Urine Total Protein Complement C3 Lymph Enumerat CD4/CD8 Absolute CD3 Count % CD4 Cells Absolute CD4 Count % CD8 Cells HIV-1 RNA PCR copies/ml HIV-1 RNA (PCR) log 03/11/18 03/11/18 03/11/18 14:48 15:15 16:17 WBC 21.2 H RBC Hgb 11.0 L Hct 33.8 L RDW Plt Count 15 L* Lymph % (Auto) Lymph # Seg Neutrophils % Seg Neuts % (Manual) 92.0 H Lymphocytes % (Manual) 4.0 L Monocytes % (Manual) Seg Neutrophils # Seg Neutrophils # Man 19.5 H Abs Lymphs (Manual) Lymphocytes # (Manual) 0.8 L Monocytes # (Manual) PT INR APTT Fibrinogen POC ABG pH POC ABG pCO2 POC ABG pO2 VBG pH Sodium Potassium Chloride Carbon Dioxide BUN Creatinine Glucose POC Glucose 139 H 145 H Lactic Acid Calcium Phosphorus Magnesium Iron Ferritin Total Bilirubin Direct Bilirubin Alkaline Phosphatase Lactate Dehydrogenase Total Creatine Kinase NT-Pro-B Natriuret Pep Total Protein Albumin Triglycerides Vitamin B12 Folate Urine WBC (Auto) Urine Creatinine Urine Total Protein Complement C3 Lymph Enumerat CD4/CD8 Absolute CD3 Count % CD4 Cells Absolute CD4 Count % CD8 Cells HIV-1 RNA PCR copies/ml HIV-1 RNA (PCR) log 03/11/18 03/11/18 03/11/18 17:48 20:16 21:02 WBC RBC Hgb Hct RDW Plt Count Lymph % (Auto) Lymph # Seg Neutrophils % Seg Neuts % (Manual) Lymphocytes % (Manual) Monocytes % (Manual) Seg Neutrophils # Seg Neutrophils # Man Abs Lymphs (Manual) Lymphocytes # (Manual) Monocytes # (Manual) PT INR APTT Fibrinogen POC ABG pH POC ABG pCO2 POC ABG pO2 VBG pH Sodium Potassium Chloride Carbon Dioxide BUN Creatinine Glucose POC Glucose 142 H 158 H 146 H Lactic Acid Calcium Phosphorus Magnesium Iron Ferritin Total Bilirubin Direct Bilirubin Alkaline Phosphatase Lactate Dehydrogenase Total Creatine Kinase NT-Pro-B Natriuret Pep Total Protein Albumin Triglycerides Vitamin B12 Folate Urine WBC (Auto) Urine Creatinine Urine Total Protein Complement C3 Lymph Enumerat CD4/CD8 Absolute CD3 Count % CD4 Cells Absolute CD4 Count % CD8 Cells HIV-1 RNA PCR copies/ml HIV-1 RNA (PCR) log 03/11/18 03/12/18 03/12/18 23:14 00:54 06:19 WBC 29.6 H RBC Hgb 10.6 L Hct 31.3 L RDW Plt Count 51 L D Lymph % (Auto) Lymph # Seg Neutrophils % Seg Neuts % (Manual) Lymphocytes % (Manual) Monocytes % (Manual) Seg Neutrophils # Seg Neutrophils # Man Abs Lymphs (Manual) Lymphocytes # (Manual) Monocytes # (Manual) PT INR APTT Fibrinogen POC ABG pH POC ABG pCO2 POC ABG pO2 VBG pH Sodium Potassium Chloride Carbon Dioxide BUN Creatinine Glucose POC Glucose 168 H 185 H Lactic Acid Calcium Phosphorus Magnesium Iron Ferritin Total Bilirubin Direct Bilirubin Alkaline Phosphatase Lactate Dehydrogenase Total Creatine Kinase NT-Pro-B Natriuret Pep Total Protein Albumin Triglycerides Vitamin B12 Folate Urine WBC (Auto) Urine Creatinine Urine Total Protein Complement C3 Lymph Enumerat CD4/CD8 Absolute CD3 Count % CD4 Cells Absolute CD4 Count % CD8 Cells HIV-1 RNA PCR copies/ml HIV-1 RNA (PCR) log 03/12/18 03/12/18 03/12/18 06:29 06:29 06:29 WBC 32.7 H RBC Hgb 10.5 L Hct 31.7 L RDW 15.3 H Plt Count 34 L Lymph % (Auto) Lymph # Seg Neutrophils % Seg Neuts % (Manual) 81.5 H Lymphocytes % (Manual) 7.0 L Monocytes % (Manual) 7.5 H Seg Neutrophils # Seg Neutrophils # Man 26.7 H Abs Lymphs (Manual) Lymphocytes # (Manual) Monocytes # (Manual) 2.5 H PT INR APTT Fibrinogen POC ABG pH POC ABG pCO2 POC ABG pO2 VBG pH Sodium Potassium 3.4 L Chloride Carbon Dioxide BUN 69 H Creatinine 2.2 H Glucose 181 H POC Glucose Lactic Acid Calcium Phosphorus Magnesium Iron Ferritin Total Bilirubin 2.30 H Direct Bilirubin 1.5 H Alkaline Phosphatase Lactate Dehydrogenase Total Creatine Kinase NT-Pro-B Natriuret Pep Total Protein 6.2 L Albumin 3.1 L Triglycerides Vitamin B12 Folate Urine WBC (Auto) Urine Creatinine Urine Total Protein Complement C3 Lymph Enumerat CD4/CD8 Absolute CD3 Count % CD4 Cells Absolute CD4 Count % CD8 Cells HIV-1 RNA PCR copies/ml HIV-1 RNA (PCR) log 03/12/18 03/12/18 03/12/18 07:21 07:44 10:16 WBC RBC Hgb Hct RDW Plt Count Lymph % (Auto) Lymph # Seg Neutrophils % Seg Neuts % (Manual) Lymphocytes % (Manual) Monocytes % (Manual) Seg Neutrophils # Seg Neutrophils # Man Abs Lymphs (Manual) Lymphocytes # (Manual) Monocytes # (Manual) PT INR APTT Fibrinogen POC ABG pH 7.337 L POC ABG pCO2 54.9 H POC ABG pO2 59 L VBG pH Sodium Potassium Chloride Carbon Dioxide BUN Creatinine Glucose POC Glucose 157 H 153 H Lactic Acid Calcium Phosphorus Magnesium Iron Ferritin Total Bilirubin Direct Bilirubin Alkaline Phosphatase Lactate Dehydrogenase Total Creatine Kinase NT-Pro-B Natriuret Pep Total Protein Albumin Triglycerides Vitamin B12 Folate Urine WBC (Auto) Urine Creatinine Urine Total Protein Complement C3 Lymph Enumerat CD4/CD8 Absolute CD3 Count % CD4 Cells Absolute CD4 Count % CD8 Cells HIV-1 RNA PCR copies/ml HIV-1 RNA (PCR) log 03/12/18 03/12/18 03/12/18 12:53 15:22 18:17 WBC RBC Hgb Hct RDW Plt Count Lymph % (Auto) Lymph # Seg Neutrophils % Seg Neuts % (Manual) Lymphocytes % (Manual) Monocytes % (Manual) Seg Neutrophils # Seg Neutrophils # Man Abs Lymphs (Manual) Lymphocytes # (Manual) Monocytes # (Manual) PT INR APTT Fibrinogen POC ABG pH POC ABG pCO2 61.7 H POC ABG pO2 110 H VBG pH Sodium Potassium Chloride Carbon Dioxide BUN Creatinine Glucose POC Glucose 148 H 148 H Lactic Acid Calcium Phosphorus Magnesium Iron Ferritin Total Bilirubin Direct Bilirubin Alkaline Phosphatase Lactate Dehydrogenase Total Creatine Kinase NT-Pro-B Natriuret Pep Total Protein Albumin Triglycerides Vitamin B12 Folate Urine WBC (Auto) Urine Creatinine Urine Total Protein Complement C3 Lymph Enumerat CD4/CD8 Absolute CD3 Count % CD4 Cells Absolute CD4 Count % CD8 Cells HIV-1 RNA PCR copies/ml HIV-1 RNA (PCR) log 03/12/18 03/13/18 03/13/18 21:34 01:14 04:37 WBC RBC Hgb Hct RDW Plt Count Lymph % (Auto) Lymph # Seg Neutrophils % Seg Neuts % (Manual) Lymphocytes % (Manual) Monocytes % (Manual) Seg Neutrophils # Seg Neutrophils # Man Abs Lymphs (Manual) Lymphocytes # (Manual) Monocytes # (Manual) PT INR APTT Fibrinogen POC ABG pH POC ABG pCO2 60.2 H POC ABG pO2 115 H VBG pH Sodium Potassium Chloride Carbon Dioxide BUN Creatinine Glucose POC Glucose 161 H 187 H Lactic Acid Calcium Phosphorus Magnesium Iron Ferritin Total Bilirubin Direct Bilirubin Alkaline Phosphatase Lactate Dehydrogenase Total Creatine Kinase NT-Pro-B Natriuret Pep Total Protein Albumin Triglycerides Vitamin B12 Folate Urine WBC (Auto) Urine Creatinine Urine Total Protein Complement C3 Lymph Enumerat CD4/CD8 Absolute CD3 Count % CD4 Cells Absolute CD4 Count % CD8 Cells HIV-1 RNA PCR copies/ml HIV-1 RNA (PCR) log 03/13/18 03/13/18 03/13/18 05:22 05:22 08:24 WBC 30.4 H RBC 3.45 L Hgb 9.8 L Hct 29.7 L RDW Plt Count 37 L Lymph % (Auto) Lymph # Seg Neutrophils % Seg Neuts % (Manual) 75.5 H Lymphocytes % (Manual) 3.0 L Monocytes % (Manual) Seg Neutrophils # Seg Neutrophils # Man 23.0 H Abs Lymphs (Manual) Lymphocytes # (Manual) 0.9 L Monocytes # (Manual) PT INR APTT Fibrinogen POC ABG pH POC ABG pCO2 POC ABG pO2 VBG pH Sodium 146 H Potassium Chloride Carbon Dioxide 35 H D BUN 71 H Creatinine 1.7 H Glucose 187 H POC Glucose 210 H Lactic Acid Calcium Phosphorus Magnesium Iron Ferritin Total Bilirubin Direct Bilirubin Alkaline Phosphatase Lactate Dehydrogenase Total Creatine Kinase NT-Pro-B Natriuret Pep Total Protein Albumin Triglycerides Vitamin B12 Folate Urine WBC (Auto) Urine Creatinine Urine Total Protein Complement C3 Lymph Enumerat CD4/CD8 Absolute CD3 Count % CD4 Cells Absolute CD4 Count % CD8 Cells HIV-1 RNA PCR copies/ml HIV-1 RNA (PCR) log 03/13/18 03/13/18 03/13/18 12:22 12:44 17:27 WBC RBC Hgb Hct RDW Plt Count Lymph % (Auto) Lymph # Seg Neutrophils % Seg Neuts % (Manual) Lymphocytes % (Manual) Monocytes % (Manual) Seg Neutrophils # Seg Neutrophils # Man Abs Lymphs (Manual) Lymphocytes # (Manual) Monocytes # (Manual) PT INR APTT Fibrinogen POC ABG pH POC ABG pCO2 POC ABG pO2 VBG pH Sodium Potassium Chloride Carbon Dioxide BUN Creatinine Glucose POC Glucose 208 H 169 H Lactic Acid Calcium Phosphorus Magnesium 3.00 H Iron Ferritin Total Bilirubin Direct Bilirubin Alkaline Phosphatase Lactate Dehydrogenase Total Creatine Kinase NT-Pro-B Natriuret Pep Total Protein Albumin Triglycerides Vitamin B12 Folate Urine WBC (Auto) Urine Creatinine Urine Total Protein Complement C3 Lymph Enumerat CD4/CD8 Absolute CD3 Count % CD4 Cells Absolute CD4 Count % CD8 Cells HIV-1 RNA PCR copies/ml HIV-1 RNA (PCR) log 03/13/18 03/14/18 03/14/18 23:35 04:29 05:23 WBC RBC Hgb Hct RDW Plt Count Lymph % (Auto) Lymph # Seg Neutrophils % Seg Neuts % (Manual) Lymphocytes % (Manual) Monocytes % (Manual) Seg Neutrophils # Seg Neutrophils # Man Abs Lymphs (Manual) Lymphocytes # (Manual) Monocytes # (Manual) PT INR APTT Fibrinogen POC ABG pH 7.502 H POC ABG pCO2 53.2 H POC ABG pO2 VBG pH Sodium Potassium Chloride Carbon Dioxide BUN Creatinine Glucose POC Glucose 256 H 212 H Lactic Acid Calcium Phosphorus Magnesium Iron Ferritin Total Bilirubin Direct Bilirubin Alkaline Phosphatase Lactate Dehydrogenase Total Creatine Kinase NT-Pro-B Natriuret Pep Total Protein Albumin Triglycerides Vitamin B12 Folate Urine WBC (Auto) Urine Creatinine Urine Total Protein Complement C3 Lymph Enumerat CD4/CD8 Absolute CD3 Count % CD4 Cells Absolute CD4 Count % CD8 Cells HIV-1 RNA PCR copies/ml HIV-1 RNA (PCR) log 03/14/18 03/14/18 03/14/18 06:00 06:00 06:00 WBC 27.3 H RBC 3.52 L Hgb 10.0 L Hct 30.8 L RDW Plt Count 50 L Lymph % (Auto) Lymph # Seg Neutrophils % Seg Neuts % (Manual) 87.0 H Lymphocytes % (Manual) 3.0 L Monocytes % (Manual) Seg Neutrophils # Seg Neutrophils # Man 23.8 H Abs Lymphs (Manual) Lymphocytes # (Manual) 0.8 L Monocytes # (Manual) 1.6 H PT INR APTT Fibrinogen POC ABG pH POC ABG pCO2 POC ABG pO2 VBG pH Sodium 156 H D Potassium Chloride 109.5 H Carbon Dioxide 37 H BUN 70 H Creatinine Glucose 202 H POC Glucose Lactic Acid Calcium Phosphorus Magnesium Iron Ferritin Total Bilirubin Direct Bilirubin Alkaline Phosphatase Lactate Dehydrogenase Total Creatine Kinase 17 L NT-Pro-B Natriuret Pep Total Protein Albumin Triglycerides Vitamin B12 Folate Urine WBC (Auto) Urine Creatinine Urine Total Protein Complement C3 Lymph Enumerat CD4/CD8 Absolute CD3 Count % CD4 Cells Absolute CD4 Count % CD8 Cells HIV-1 RNA PCR copies/ml HIV-1 RNA (PCR) log 03/14/18 03/14/18 03/14/18 07:00 07:00 07:00 WBC RBC Hgb Hct RDW Plt Count Lymph % (Auto) Lymph # Seg Neutrophils % Seg Neuts % (Manual) Lymphocytes % (Manual) Monocytes % (Manual) Seg Neutrophils # Seg Neutrophils # Man Abs Lymphs (Manual) Lymphocytes # (Manual) Monocytes # (Manual) PT INR APTT Fibrinogen POC ABG pH POC ABG pCO2 POC ABG pO2 VBG pH Sodium Potassium Chloride Carbon Dioxide BUN Creatinine Glucose POC Glucose Lactic Acid Calcium Phosphorus Magnesium Iron 42 L Ferritin 532.4 H Total Bilirubin Direct Bilirubin Alkaline Phosphatase Lactate Dehydrogenase Total Creatine Kinase NT-Pro-B Natriuret Pep Total Protein Albumin Triglycerides Vitamin B12 1825 H Folate Urine WBC (Auto) Urine Creatinine Urine Total Protein Complement C3 Lymph Enumerat CD4/CD8 Absolute CD3 Count % CD4 Cells Absolute CD4 Count % CD8 Cells HIV-1 RNA PCR copies/ml HIV-1 RNA (PCR) log 03/14/18 03/14/18 03/14/18 07:00 07:00 13:01 WBC RBC Hgb Hct RDW Plt Count Lymph % (Auto) Lymph # Seg Neutrophils % Seg Neuts % (Manual) Lymphocytes % (Manual) Monocytes % (Manual) Seg Neutrophils # Seg Neutrophils # Man Abs Lymphs (Manual) Lymphocytes # (Manual) Monocytes # (Manual) PT INR APTT Fibrinogen POC ABG pH POC ABG pCO2 POC ABG pO2 VBG pH Sodium Potassium Chloride Carbon Dioxide BUN Creatinine Glucose POC Glucose 201 H Lactic Acid Calcium Phosphorus Magnesium Iron Ferritin Total Bilirubin Direct Bilirubin Alkaline Phosphatase Lactate Dehydrogenase Total Creatine Kinase NT-Pro-B Natriuret Pep Total Protein Albumin Triglycerides 532 H Vitamin B12 Folate 6.29 L Urine WBC (Auto) Urine Creatinine Urine Total Protein Complement C3 Lymph Enumerat CD4/CD8 Absolute CD3 Count % CD4 Cells Absolute CD4 Count % CD8 Cells HIV-1 RNA PCR copies/ml HIV-1 RNA (PCR) log 03/14/18 03/14/18 03/14/18 17:37 21:04 23:30 WBC RBC Hgb Hct RDW Plt Count Lymph % (Auto) Lymph # Seg Neutrophils % Seg Neuts % (Manual) Lymphocytes % (Manual) Monocytes % (Manual) Seg Neutrophils # Seg Neutrophils # Man Abs Lymphs (Manual) Lymphocytes # (Manual) Monocytes # (Manual) PT INR APTT Fibrinogen POC ABG pH POC ABG pCO2 POC ABG pO2 VBG pH Sodium 155 H Potassium Chloride 114.1 H Carbon Dioxide 33 H BUN 58 H Creatinine Glucose 166 H POC Glucose 179 H 167 H Lactic Acid Calcium Phosphorus Magnesium Iron Ferritin Total Bilirubin Direct Bilirubin Alkaline Phosphatase Lactate Dehydrogenase Total Creatine Kinase NT-Pro-B Natriuret Pep Total Protein Albumin Triglycerides Vitamin B12 Folate Urine WBC (Auto) Urine Creatinine Urine Total Protein Complement C3 Lymph Enumerat CD4/CD8 Absolute CD3 Count % CD4 Cells Absolute CD4 Count % CD8 Cells HIV-1 RNA PCR copies/ml HIV-1 RNA (PCR) log 03/15/18 03/15/18 03/15/18 04:44 04:44 04:44 WBC 26.0 H RBC Hgb 10.5 L Hct 33.0 L RDW Plt Count 70 L Lymph % (Auto) Lymph # Seg Neutrophils % Seg Neuts % (Manual) 91.0 H Lymphocytes % (Manual) 6.0 L Monocytes % (Manual) Seg Neutrophils # Seg Neutrophils # Man 23.7 H Abs Lymphs (Manual) Lymphocytes # (Manual) Monocytes # (Manual) PT INR APTT Fibrinogen POC ABG pH POC ABG pCO2 POC ABG pO2 VBG pH Sodium 155 H Potassium Chloride 114.3 H Carbon Dioxide 31 H BUN 51 H Creatinine Glucose 173 H POC Glucose Lactic Acid Calcium Phosphorus Magnesium 2.80 H Iron Ferritin Total Bilirubin Direct Bilirubin Alkaline Phosphatase Lactate Dehydrogenase Total Creatine Kinase NT-Pro-B Natriuret Pep Total Protein Albumin Triglycerides Vitamin B12 Folate Urine WBC (Auto) Urine Creatinine Urine Total Protein Complement C3 Lymph Enumerat CD4/CD8 Absolute CD3 Count % CD4 Cells Absolute CD4 Count % CD8 Cells HIV-1 RNA PCR copies/ml HIV-1 RNA (PCR) log 03/15/18 03/15/18 03/15/18 04:53 06:36 17:25 WBC RBC Hgb Hct RDW Plt Count Lymph % (Auto) Lymph # Seg Neutrophils % Seg Neuts % (Manual) Lymphocytes % (Manual) Monocytes % (Manual) Seg Neutrophils # Seg Neutrophils # Man Abs Lymphs (Manual) Lymphocytes # (Manual) Monocytes # (Manual) PT INR APTT Fibrinogen POC ABG pH POC ABG pCO2 59.0 H POC ABG pO2 112 H VBG pH Sodium Potassium Chloride Carbon Dioxide BUN Creatinine Glucose POC Glucose 199 H 138 H Lactic Acid Calcium Phosphorus Magnesium Iron Ferritin Total Bilirubin Direct Bilirubin Alkaline Phosphatase Lactate Dehydrogenase Total Creatine Kinase NT-Pro-B Natriuret Pep Total Protein Albumin Triglycerides Vitamin B12 Folate Urine WBC (Auto) Urine Creatinine Urine Total Protein Complement C3 Lymph Enumerat CD4/CD8 Absolute CD3 Count % CD4 Cells Absolute CD4 Count % CD8 Cells HIV-1 RNA PCR copies/ml HIV-1 RNA (PCR) log 03/15/18 03/16/18 03/16/18 23:20 03:59 05:01 WBC 21.9 H RBC Hgb 10.3 L Hct 32.5 L RDW Plt Count 88 L Lymph % (Auto) Lymph # Seg Neutrophils % Seg Neuts % (Manual) 98.0 H Lymphocytes % (Manual) 2.0 L Monocytes % (Manual) Seg Neutrophils # Seg Neutrophils # Man 21.5 H Abs Lymphs (Manual) Lymphocytes # (Manual) 0.4 L Monocytes # (Manual) PT INR APTT Fibrinogen POC ABG pH POC ABG pCO2 46.6 H POC ABG pO2 50 L VBG pH Sodium Potassium Chloride Carbon Dioxide BUN Creatinine Glucose POC Glucose 182 H Lactic Acid Calcium Phosphorus Magnesium Iron Ferritin Total Bilirubin Direct Bilirubin Alkaline Phosphatase Lactate Dehydrogenase Total Creatine Kinase NT-Pro-B Natriuret Pep Total Protein Albumin Triglycerides Vitamin B12 Folate Urine WBC (Auto) Urine Creatinine Urine Total Protein Complement C3 Lymph Enumerat CD4/CD8 Absolute CD3 Count % CD4 Cells Absolute CD4 Count % CD8 Cells HIV-1 RNA PCR copies/ml HIV-1 RNA (PCR) log 03/16/18 03/16/18 03/16/18 05:01 05:01 05:29 WBC RBC Hgb Hct RDW Plt Count Lymph % (Auto) Lymph # Seg Neutrophils % Seg Neuts % (Manual) Lymphocytes % (Manual) Monocytes % (Manual) Seg Neutrophils # Seg Neutrophils # Man Abs Lymphs (Manual) Lymphocytes # (Manual) Monocytes # (Manual) PT INR APTT Fibrinogen POC ABG pH POC ABG pCO2 POC ABG pO2 VBG pH Sodium 148 H Potassium 5.7 H Chloride 112.1 H Carbon Dioxide BUN 41 H Creatinine Glucose 234 H POC Glucose 257 H Lactic Acid Calcium Phosphorus Magnesium Iron Ferritin Total Bilirubin Direct Bilirubin Alkaline Phosphatase Lactate Dehydrogenase Total Creatine Kinase NT-Pro-B Natriuret Pep Total Protein Albumin Triglycerides 212 H Vitamin B12 Folate Urine WBC (Auto) Urine Creatinine Urine Total Protein Complement C3 Lymph Enumerat CD4/CD8 Absolute CD3 Count % CD4 Cells Absolute CD4 Count % CD8 Cells HIV-1 RNA PCR copies/ml HIV-1 RNA (PCR) log 03/16/18 03/16/18 03/16/18 11:30 15:56 17:28 WBC RBC Hgb Hct RDW Plt Count Lymph % (Auto) Lymph # Seg Neutrophils % Seg Neuts % (Manual) Lymphocytes % (Manual) Monocytes % (Manual) Seg Neutrophils # Seg Neutrophils # Man Abs Lymphs (Manual) Lymphocytes # (Manual) Monocytes # (Manual) PT INR APTT Fibrinogen POC ABG pH POC ABG pCO2 POC ABG pO2 VBG pH Sodium Potassium 5.5 H Chloride Carbon Dioxide BUN 39 H Creatinine Glucose 186 H POC Glucose 186 H 153 H Lactic Acid Calcium Phosphorus Magnesium Iron Ferritin Total Bilirubin Direct Bilirubin Alkaline Phosphatase Lactate Dehydrogenase Total Creatine Kinase NT-Pro-B Natriuret Pep Total Protein Albumin Triglycerides Vitamin B12 Folate Urine WBC (Auto) Urine Creatinine Urine Total Protein Complement C3 Lymph Enumerat CD4/CD8 Absolute CD3 Count % CD4 Cells Absolute CD4 Count % CD8 Cells HIV-1 RNA PCR copies/ml HIV-1 RNA (PCR) log 03/16/18 03/17/18 03/17/18 23:48 04:25 04:25 WBC 13.9 H RBC 2.89 L Hgb 8.2 L Hct 27.8 L RDW Plt Count 85 L Lymph % (Auto) Lymph # Seg Neutrophils % Seg Neuts % (Manual) 88.0 H Lymphocytes % (Manual) 4.0 L Monocytes % (Manual) Seg Neutrophils # Seg Neutrophils # Man 12.2 H Abs Lymphs (Manual) Lymphocytes # (Manual) 0.6 L Monocytes # (Manual) PT INR APTT Fibrinogen POC ABG pH POC ABG pCO2 POC ABG pO2 VBG pH Sodium Potassium 5.7 H Chloride 107.5 H Carbon Dioxide BUN 38 H Creatinine Glucose 165 H POC Glucose 131 H Lactic Acid Calcium Phosphorus Magnesium Iron Ferritin Total Bilirubin Direct Bilirubin Alkaline Phosphatase Lactate Dehydrogenase Total Creatine Kinase NT-Pro-B Natriuret Pep Total Protein Albumin Triglycerides Vitamin B12 Folate Urine WBC (Auto) Urine Creatinine Urine Total Protein Complement C3 Lymph Enumerat CD4/CD8 Absolute CD3 Count % CD4 Cells Absolute CD4 Count % CD8 Cells HIV-1 RNA PCR copies/ml HIV-1 RNA (PCR) log 03/17/18 03/17/18 03/17/18 04:25 04:51 05:39 WBC RBC Hgb Hct RDW Plt Count Lymph % (Auto) Lymph # Seg Neutrophils % Seg Neuts % (Manual) Lymphocytes % (Manual) Monocytes % (Manual) Seg Neutrophils # Seg Neutrophils # Man Abs Lymphs (Manual) Lymphocytes # (Manual) Monocytes # (Manual) PT INR APTT Fibrinogen POC ABG pH POC ABG pCO2 45.4 H POC ABG pO2 174 H VBG pH Sodium Potassium Chloride Carbon Dioxide BUN Creatinine Glucose POC Glucose 140 H Lactic Acid Calcium Phosphorus Magnesium Iron Ferritin Total Bilirubin Direct Bilirubin Alkaline Phosphatase Lactate Dehydrogenase 232 H Total Creatine Kinase 33 L NT-Pro-B Natriuret Pep Total Protein Albumin Triglycerides Vitamin B12 Folate Urine WBC (Auto) Urine Creatinine Urine Total Protein Complement C3 Lymph Enumerat CD4/CD8 Absolute CD3 Count % CD4 Cells Absolute CD4 Count % CD8 Cells HIV-1 RNA PCR copies/ml HIV-1 RNA (PCR) log 03/17/18 03/17/18 03/17/18 11:51 14:40 17:40 WBC RBC Hgb Hct RDW Plt Count Lymph % (Auto) Lymph # Seg Neutrophils % Seg Neuts % (Manual) Lymphocytes % (Manual) Monocytes % (Manual) Seg Neutrophils # Seg Neutrophils # Man Abs Lymphs (Manual) Lymphocytes # (Manual) Monocytes # (Manual) PT INR APTT Fibrinogen POC ABG pH POC ABG pCO2 POC ABG pO2 VBG pH Sodium Potassium Chloride Carbon Dioxide BUN 36 H Creatinine Glucose 107 H POC Glucose 122 H 113 H Lactic Acid Calcium Phosphorus Magnesium Iron Ferritin Total Bilirubin Direct Bilirubin Alkaline Phosphatase Lactate Dehydrogenase Total Creatine Kinase NT-Pro-B Natriuret Pep Total Protein Albumin Triglycerides Vitamin B12 Folate Urine WBC (Auto) Urine Creatinine Urine Total Protein Complement C3 Lymph Enumerat CD4/CD8 Absolute CD3 Count % CD4 Cells Absolute CD4 Count % CD8 Cells HIV-1 RNA PCR copies/ml HIV-1 RNA (PCR) log 03/18/18 03/18/18 03/18/18 04:16 04:16 04:48 WBC 14.9 H RBC Hgb 10.8 L Hct 33.3 L RDW Plt Count Lymph % (Auto) Lymph # Seg Neutrophils % Seg Neuts % (Manual) 76.0 H Lymphocytes % (Manual) 5.0 L Monocytes % (Manual) Seg Neutrophils # Seg Neutrophils # Man 11.3 H Abs Lymphs (Manual) Lymphocytes # (Manual) 0.7 L Monocytes # (Manual) PT INR APTT Fibrinogen POC ABG pH POC ABG pCO2 POC ABG pO2 54 L VBG pH Sodium Potassium Chloride Carbon Dioxide BUN 34 H Creatinine Glucose 116 H POC Glucose Lactic Acid Calcium Phosphorus Magnesium Iron Ferritin Total Bilirubin Direct Bilirubin Alkaline Phosphatase Lactate Dehydrogenase Total Creatine Kinase NT-Pro-B Natriuret Pep Total Protein Albumin Triglycerides Vitamin B12 Folate Urine WBC (Auto) Urine Creatinine Urine Total Protein Complement C3 Lymph Enumerat CD4/CD8 Absolute CD3 Count % CD4 Cells Absolute CD4 Count % CD8 Cells HIV-1 RNA PCR copies/ml HIV-1 RNA (PCR) log 03/18/18 03/18/18 03/19/18 05:13 18:40 04:50 WBC RBC Hgb Hct RDW Plt Count Lymph % (Auto) Lymph # Seg Neutrophils % Seg Neuts % (Manual) Lymphocytes % (Manual) Monocytes % (Manual) Seg Neutrophils # Seg Neutrophils # Man Abs Lymphs (Manual) Lymphocytes # (Manual) Monocytes # (Manual) PT INR APTT Fibrinogen POC ABG pH POC ABG pCO2 46.1 H POC ABG pO2 112 H VBG pH Sodium Potassium Chloride Carbon Dioxide BUN Creatinine Glucose POC Glucose 127 H 110 H Lactic Acid Calcium Phosphorus Magnesium Iron Ferritin Total Bilirubin Direct Bilirubin Alkaline Phosphatase Lactate Dehydrogenase Total Creatine Kinase NT-Pro-B Natriuret Pep Total Protein Albumin Triglycerides Vitamin B12 Folate Urine WBC (Auto) Urine Creatinine Urine Total Protein Complement C3 Lymph Enumerat CD4/CD8 Absolute CD3 Count % CD4 Cells Absolute CD4 Count % CD8 Cells HIV-1 RNA PCR copies/ml HIV-1 RNA (PCR) log 03/19/18 03/19/18 03/19/18 05:27 06:00 06:00 WBC 13.0 H RBC 3.43 L Hgb 9.7 L Hct 30.6 L RDW Plt Count Lymph % (Auto) 8.4 L Lymph # 1.1 L Seg Neutrophils % 87.4 H Seg Neuts % (Manual) Lymphocytes % (Manual) Monocytes % (Manual) Seg Neutrophils # 11.4 H Seg Neutrophils # Man Abs Lymphs (Manual) Lymphocytes # (Manual) Monocytes # (Manual) PT INR APTT Fibrinogen POC ABG pH POC ABG pCO2 POC ABG pO2 VBG pH Sodium Potassium Chloride 107.8 H Carbon Dioxide BUN 28 H Creatinine Glucose 220 H POC Glucose 69 L Lactic Acid Calcium 8.1 L Phosphorus Magnesium Iron Ferritin Total Bilirubin Direct Bilirubin Alkaline Phosphatase Lactate Dehydrogenase Total Creatine Kinase NT-Pro-B Natriuret Pep Total Protein Albumin Triglycerides Vitamin B12 Folate Urine WBC (Auto) Urine Creatinine Urine Total Protein Complement C3 Lymph Enumerat CD4/CD8 Absolute CD3 Count % CD4 Cells Absolute CD4 Count % CD8 Cells HIV-1 RNA PCR copies/ml HIV-1 RNA (PCR) log 03/19/18 06:00 WBC RBC Hgb Hct RDW Plt Count Lymph % (Auto) Lymph # Seg Neutrophils % Seg Neuts % (Manual) Lymphocytes % (Manual) Monocytes % (Manual) Seg Neutrophils # Seg Neutrophils # Man Abs Lymphs (Manual) Lymphocytes # (Manual) Monocytes # (Manual) PT INR APTT Fibrinogen POC ABG pH POC ABG pCO2 POC ABG pO2 VBG pH Sodium Potassium Chloride Carbon Dioxide BUN Creatinine Glucose POC Glucose Lactic Acid Calcium Phosphorus Magnesium Iron Ferritin Total Bilirubin Direct Bilirubin Alkaline Phosphatase Lactate Dehydrogenase Total Creatine Kinase NT-Pro-B Natriuret Pep Total Protein Albumin Triglycerides 177 H Vitamin B12 Folate Urine WBC (Auto) Urine Creatinine Urine Total Protein Complement C3 Lymph Enumerat CD4/CD8 Absolute CD3 Count % CD4 Cells Absolute CD4 Count % CD8 Cells HIV-1 RNA PCR copies/ml HIV-1 RNA (PCR) log
--- NOTE | 2018-03-19 11:55 | Progress Note ---
Assessment and Plan Assessment and plan: 33 yo with HIV infection. He initially presented with nausea, vomiting, general weakness and chills for 2 days. He was getting weaker, no Urine output therefore came to ED for evaluation. In ED, labs show acute kidney injury with metabolic acidosis thrombocytopenia. He was Sepic, hypotensive. 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 Diagnosed 6 yrs ago, Stopped taking his medications over 6 months ago which was generally oriented. Last CD4 count was 400, current CD4 and HIV viral load are still pending SCOTT resolved, avoid nephrotoxins Hyponatremia,Hypoglycemia. treated and resolved Coagulopathy, improved Acute toxic metabolic encephalpathy has been agitated and hard to sedate, obtain UDS -cont iv sedation dvt ppx -scds in light of thrombocytopenia Critical care time 35 minutes The patient does not want his HIV status being discussed with his family. History Interval history: Patient has been agitated easily, requiring restraints and IV sedation No fevers, no seizures no vomiting Hospitalist Physical - Physical exam Narrative exam: General.: Appears well, no distress, nontoxic HEENT: Moist mucous membranes, extraocular muscles intact, no lymphadenopathy Neck: supple Cardiac: S1-S2 heard Lungs: Ventilated breath sounds Abdomen: soft , nontender, nondistended, bowel sounds positive Extremities: no edema clubbing or cyanosis Skin: no rash or lesions Neurologic: Intubated and sedated - Constitutional Vitals: Temp Pulse Resp BP Pulse Ox 100.6 F H 105 H 20 106/57 99 03/19/18 08:00 03/19/18 09:45 03/19/18 09:45 03/19/18 09:45 03/19/18 09:45 General appearance: Present: cachectic, other (chronically ill-appearing) Results - Labs CBC & Chem 7: 03/19/18 06:00 03/19/18 06:00 Labs: Laboratory Last Values WBC 13.0 K/mm3 (4.5-11.0) H 03/19/18 06:00 RBC 3.43 M/mm3 (3.65-5.03) L 03/19/18 06:00 Hgb 9.7 gm/dl (11.8-15.2) L 03/19/18 06:00 Hct 30.6 % (35.5-45.6) L 03/19/18 06:00 MCV 89 fl (84-94) 03/19/18 06:00 MCH 28 pg (28-32) 03/19/18 06:00 MCHC 32 % (32-34) 03/19/18 06:00 RDW 14.4 % (13.2-15.2) 03/19/18 06:00 Plt Count 156 K/mm3 (140-440) 03/19/18 06:00 Lymph % (Auto) 8.4 % (13.4-35.0) L 03/19/18 06:00 [place] % (Auto) 3.5 % (0.0-7.3) 03/19/18 06:00 Eos % (Auto) 0.5 % (0.0-4.3) 03/19/18 06:00 Baso % (Auto) 0.2 % (0.0-1.8) 03/19/18 06:00 Lymph # 1.1 K/mm3 (1.2-5.4) L 03/19/18 06:00 [place] # 0.5 K/mm3 (0.0-0.8) 03/19/18 06:00 Eos # 0.1 K/mm3 (0.0-0.4) 03/19/18 06:00 Baso # 0.0 K/mm3 (0.0-0.1) 03/19/18 06:00 Add Manual Diff Complete 03/18/18 04:16 Total Counted 100 03/18/18 04:16 Seg Neutrophils % 87.4 % (40.0-70.0) H 03/19/18 06:00 Seg Neuts % (Manual) 76.0 % (40.0-70.0) H 03/18/18 04:16 Band Neutrophils % 16.0 % 03/18/18 04:16 Lymphocytes % (Manual) 5.0 % (13.4-35.0) L 03/18/18 04:16 Reactive Lymphs % (Man) 0 % 03/18/18 04:16 Monocytes % (Manual) 3.0 % (0.0-7.3) 03/18/18 04:16 Eosinophils % (Manual) 0 % (0.0-4.3) 03/18/18 04:16 Basophils % (Manual) 0 % (0.0-1.8) 03/18/18 04:16 Metamyelocytes % 0 % 03/18/18 04:16 Myelocytes % 0 % 03/18/18 04:16 Promyelocytes % 0 % 03/18/18 04:16 Blast Cells % 0 % 03/18/18 04:16 Nucleated RBC % Not Reportable 03/18/18 04:16 Seg Neutrophils # 11.4 K/mm3 (1.8-7.7) H 03/19/18 06:00 Seg Neutrophils # Man 11.3 K/mm3 (1.8-7.7) H 03/18/18 04:16 Band Neutrophils # 2.4 K/mm3 03/18/18 04:16 Abs Lymphs (Manual) 779 cells/uL (850-3900) L 03/10/18 18:15 Lymphocytes # (Manual) 0.7 K/mm3 (1.2-5.4) L 03/18/18 04:16 Abs React Lymphs (Man) 0.0 K/mm3 03/18/18 04:16 Monocytes # (Manual) 0.4 K/mm3 (0.0-0.8) 03/18/18 04:16 Eosinophils # (Manual) 0.0 K/mm3 (0.0-0.4) 03/18/18 04:16 Basophils # (Manual) 0.0 K/mm3 (0.0-0.1) 03/18/18 04:16 Metamyelocytes # 0.0 K/mm3 03/18/18 04:16 Myelocytes # 0.0 K/mm3 03/18/18 04:16 Promyelocytes # 0.0 K/mm3 03/18/18 04:16 Blast Cells # 0.0 K/mm3 03/18/18 04:16 Pathologist Review 03/12/18 06:29 WBC Morphology Not Reportable 03/18/18 04:16 Hypersegmented Neuts Not Reportable 03/18/18 04:16 Hyposegmented Neuts Not Reportable 03/18/18 04:16 Hypogranular Neuts Not Reportable 03/18/18 04:16 Smudge Cells Not Reportable 03/18/18 04:16 Toxic Granulation Not Reportable 03/18/18 04:16 Toxic Vacuolation Not Reportable 03/18/18 04:16 Dohle Bodies Not Reportable 03/18/18 04:16 Pelger-Huet Anomaly Not Reportable 03/18/18 04:16 Kamar Rods Not Reportable 03/18/18 04:16 Platelet Estimate Consistent w auto 03/18/18 04:16 Clumped Platelets Not Reportable 03/18/18 04:16 Plt Clumps, EDTA Not Reportable 03/18/18 04:16 Large Platelets Not Reportable 03/18/18 04:16 Giant Platelets Not Reportable 03/18/18 04:16 Platelet Satelliting Not Reportable 03/18/18 04:16 Plt Morphology Comment Not Reportable 03/18/18 04:16 RBC Morphology Not Reportable 03/18/18 04:16 Dimorphic RBCs Not Reportable 03/18/18 04:16 Polychromasia Not Reportable 03/18/18 04:16 Hypochromasia Few 03/18/18 04:16 Poikilocytosis Not Reportable 03/18/18 04:16 Anisocytosis Few 03/18/18 04:16 Microcytosis Not Reportable 03/18/18 04:16 Macrocytosis Not Reportable 03/18/18 04:16 Spherocytes Not Reportable 03/18/18 04:16 Pappenheimer Bodies Not Reportable 03/18/18 04:16 Sickle Cells Not Reportable 03/18/18 04:16 Target Cells Not Reportable 03/18/18 04:16 Tear Drop Cells Not Reportable 03/18/18 04:16 Ovalocytes Rare 03/18/18 04:16 Stomatocytes Rare 03/14/18 06:00 Helmet Cells Not Reportable 03/18/18 04:16 [place] Bodies Not Reportable 03/18/18 04:16 [place] Rings Not Reportable 03/18/18 04:16 Lyssa Cells Not Reportable 03/18/18 04:16 Bite Cells Not Reportable 03/18/18 04:16 Crenated Cell Not Reportable 03/18/18 04:16 Elliptocytes Not Reportable 03/18/18 04:16 Acanthocytes (Spur) Not Reportable 03/18/18 04:16 Rouleaux Not Reportable 03/18/18 04:16 Hemoglobin C Crystals Not Reportable 03/18/18 04:16 Schistocytes Not Reportable 03/18/18 04:16 Malaria parasites Not Reportable 03/18/18 04:16 Jose Bodies Not Reportable 03/18/18 04:16 Hem Pathologist Commnt No 03/18/18 04:16 PT 17.2 Sec. (12.2-14.9) H 03/10/18 18:15 INR 1.36 (0.87-1.13) H 03/10/18 18:15 APTT 38.5 Sec. (24.2-36.6) H 03/10/18 18:15 Fibrinogen 852 mg/dl (211-480) H 03/10/18 18:15 POC ABG pH 7.375 (7.35-7.45) 03/19/18 04:50 POC ABG pCO2 46.1 (35-45) H 03/19/18 04:50 POC ABG pO2 112 (80-105) H 03/19/18 04:50 POC ABG HCO3 27.0 03/19/18 04:50 POC ABG Total CO2 28 03/19/18 04:50 POC ABG O2 Sat 98 03/19/18 04:50 POC ABG Base Excess 2 03/19/18 04:50 VBG pH 7.297 (7.320-7.420) L 03/09/18 07:00 FiO2 65 % 03/19/18 04:50 Sodium 144 mmol/L (137-145) 03/19/18 06:00 Potassium 4.0 mmol/L (3.6-5.0) 03/19/18 06:00 Chloride 107.8 mmol/L (98-107) H 03/19/18 06:00 Carbon Dioxide 26 mmol/L (22-30) 03/19/18 06:00 Anion Gap 14 mmol/L 03/19/18 06:00 BUN 28 mg/dL (9-20) H 03/19/18 06:00 Creatinine 0.8 mg/dL (0.8-1.5) 03/19/18 06:00 Estimated GFR > 60 ml/min 03/19/18 06:00 BUN/Creatinine Ratio 35 % 03/19/18 06:00 Glucose 220 mg/dL (75-100) H 03/19/18 06:00 POC Glucose 69 (70-105) L 03/19/18 05:27 Osmolality 256 Mosm/kg 03/14/18 07:00 Lactic Acid 4.10 mmol/L (0.7-2.0) H* 03/10/18 01:00 Uric Acid 3.5 mg/dL (3.5-7.6) 03/17/18 04:25 Calcium 8.1 mg/dL (8.4-10.2) L 03/19/18 06:00 Phosphorus 3.10 mg/dL (2.5-4.5) 03/19/18 06:00 Magnesium 1.90 mg/dL (1.7-2.3) 03/19/18 06:00 Iron 42 ug/dL (49-181) L 03/14/18 07:00 TIBC 262 mcg/dL (250-450) 03/14/18 07:00 Ferritin 532.4 ng/mL (13.0-400.0) H 03/14/18 07:00 Total Bilirubin 2.30 mg/dL (0.1-1.2) H 03/12/18 06:29 Direct Bilirubin 1.5 mg/dL (0-0.2) H 03/12/18 06:29 Indirect Bilirubin 0.8 mg/dL 03/12/18 06:29 AST 33 units/L (5-40) 03/12/18 06:29 ALT 48 units/L (7-56) 03/12/18 06:29 Alkaline Phosphatase 111 units/L (35-129) 03/12/18 06:29 Lactate Dehydrogenase 232 units/L (91-180) H 03/17/18 04:25 Total Creatine Kinase 33 units/L (55-170) L 03/17/18 04:25 NT-Pro-B Natriuret Pep 21928 pg/mL (0-450) H 03/10/18 11:16 Total Protein 6.2 g/dL (6.3-8.2) L 03/12/18 06:29 Albumin 3.1 g/dL (3.9-5) L 03/12/18 06:29 Albumin/Globulin Ratio 1.0 % 03/12/18 06:29 Triglycerides 177 mg/dL (2-149) H 03/19/18 06:00 Vitamin B12 1825 pg/mL (211-911) H 03/14/18 07:00 Folate 6.29 ng/mL (7.3-26.0) L 03/14/18 07:00 Urine Color Red (Yellow) 03/10/18 06:00 Urine Turbidity Cloudy (Clear) 03/10/18 06:00 Urine pH 5.0 (5.0-7.0) 03/10/18 06:00 Ur Specific [place] 1.009 (1.003-1.030) 03/10/18 06:00 Urine Protein 100 mg/dl mg/dL (Negative) 03/10/18 06:00 Urine Glucose (UA) Neg mg/dL (Negative) 03/10/18 06:00 Urine Ketones Neg mg/dL (Negative) 03/10/18 06:00 Urine Blood Lg (Negative) 03/10/18 06:00 Urine Nitrite Neg (Negative) 03/10/18 06:00 Urine Bilirubin Neg (Negative) 03/10/18 06:00 Urine Urobilinogen < 2.0 mg/dL (<2.0) 03/10/18 06:00 Ur Leukocyte Esterase Neg (Negative) 03/10/18 06:00 Urine WBC (Auto) 32.0 /HPF (0.0-6.0) H 03/10/18 06:00 Urine RBC (Auto) > 182.0 /HPF (0.0-6.0) 03/10/18 06:00 U Epithel Cells (Auto) 5.0 /HPF (0-13.0) 03/09/18 14:39 Urine Bacteria (Auto) 2+ /HPF (Negative) 03/10/18 06:00 Urine WBC Clumps Few /HPF 03/09/18 14:39 Amorphous Crystals 3+ 03/10/18 06:00 Granular Casts 29 /LPF 03/10/18 06:00 Urine Creatinine 210.7 mg/dL (0.1-20.0) H 03/09/18 14:39 Protein/Creatinin Ratio 3.89 03/09/18 14:39 Urine Sodium 81 mmol/L 03/14/18 18:50 Urine Total Protein 820 mg/dL (5-11.8) H 03/09/18 14:39 Urine Opiates Screen Presumptive negative 03/16/18 Unknown Urine Methadone Screen Presumptive negative 03/16/18 Unknown Ur Barbiturates Screen Presumptive negative 03/16/18 Unknown Ur Phencyclidine Scrn Presumptive negative 03/16/18 Unknown Ur Amphetamines Screen Presumptive negative 03/16/18 Unknown U Benzodiazepines Scrn Presumptive negative 03/16/18 Unknown Urine Cocaine Screen Presumptive negative 03/16/18 Unknown U Marijuana (THC) Screen Presumptive positive 03/16/18 Unknown Drugs of Abuse Note Disclamer 03/16/18 Unknown FELICIA Screen Negative (Negative) 03/10/18 11:16 Proteinase 3 (PR3) Ab <1.0 AI (<1.0) 03/10/18 11:16 Myeloperoxidase Ab <1.0 AI (<1.0) 03/10/18 11:16 Glomerular Base Mem IgG See scanned result 03/10/18 11:16 Complement C3 83 mg/dL (82-185) 03/10/18 11:16 Complement C4 30 mg/dL (15-53) 03/10/18 11:16 Lymph Enumerat CD4/CD8 0.56 (0.86-5.00) L 03/10/18 18:15 % CD3 Cells 67 % (57-85) 03/10/18 18:15 Absolute CD3 Count 524 cells/uL (840-3060) L 03/10/18 18:15 % CD4 Cells 24 % (30-61) L 03/10/18 18:15 Absolute CD4 Count 194 cells/uL (490-1740) L 03/10/18 18:15 % CD8 Cells 43 % (12-42) H 03/10/18 18:15 Absolute CD8 Count 344 cells/uL (180-1170) 03/10/18 18:15 % CD19 Cells 25 % (6-29) 03/10/18 18:15 Absolute CD19 Count 188 cells/uL (110-660) 03/10/18 18:15 Hepatitis A IgM Ab Non-reactive (NonReactive) 03/09/18 20:39 Hep Bs Antigen Non-reactive (Negative) 03/09/18 20:39 Hep B Core IgM Ab Non-reactive (NonReactive) 03/09/18 20:39 Hepatitis C Antibody Non-reactive (NonReactive) 03/09/18 20:39 HIV-1 Antibody See scanned result 03/09/18 20:39 HIV-1 RNA PCR copies/ml 57142 Copies/mL H 03/10/18 18:15 HIV-1 RNA (PCR) log 4.71 Log cps/mL H 03/10/18 18:15 HIV-2 Ab (Immunoblot) See scanned result 03/09/18 20:39 HIV 1&2 Antibody Rapid Reactive (Non React) 03/09/18 20:39 HIV P24 Antigen Non react (Non React) 03/09/18 20:39 Influenza A (Rapid) Negative (Negative) 03/09/18 Unknown Influenza B (Rapid) Negative (Negative) 03/09/18 Unknown Schistocytes Smear Rare 03/10/18 11:16 Miscellaneous Test Flexitest 1 03/12/18 16:45 Blood Type O POSITIVE 03/09/18 12:36 Antibody Screen Negative 03/09/18 12:36 Nutrition/Malnutrition Assess - Dietary Evaluation Nutrition/Malnutrition Findings: Nutrition Notes Start: 03/12/18 12:51 Freq: Status: Active Protocol: Document 03/18/18 13:00 OCTAVIO (Rec: 03/18/18 13:15 [email or web address]) Co-Sign 03/18/18 13:00 LP Nutrition Notes Initial or Follow up Reassessment Current Diagnosis Acute Kidney Injury Sepsis Respiratory Failure Other Pertinent Diagnosis HIV Current Diet NPO Labs/Tests BUN:34 Pertinent Medications propofol at 13.604 ml/hr (359 kcals) Height 5 ft 11 in Weight 78.3 kg [place] Body Weight (lbs) 172.0 BMI 24.0 Subjective/Other Information F/u for TF tolerance. Pt had bronchoscopy secondary to aspiration. Based on results, MD requested TF to be held. Percent of energy/protein needs met: 0%/0% Burn Absent Trauma Absent #2 Nutrition Diagnosis Inadequate oral intake Diagnosis Progress(for reassessment Continues documentation) Is patient on ventilator? Yes Is Patient Ambulatory and/or Out of Bed No REE-([place] Jeor-confined to bed) [phone] Calculation Used for Recommendations [facility] Additional Notes Protein needs are 109-181g (1. 2-2g/kg) Fluid needs are 1ml/kcal Nutrition Intervention Change Diet Order: npo Goal #1 Monitor for TF restart Anticipated Discharge Needs: unable to determine at this time Follow-Up By: 03/19/18 Additional Comments f/u for TF restart and tolerance
--- NOTE | 2018-03-19 18:09 | Progress Note ---
Assessment and Plan Cultures: 03/09/2018 blood culture: Hemophilus hemolyticus in both sets 03/09/2018 influenza rapid: Negative 03/10/2018 urine culture: Negative 03/12/2018 Resp culture: usual resp thomas. 03/12/2018 Crypto Ag serum: negative. 03/13/2018 blood culture BAL 03/18/2018 +Staph aureus A/P: 33/M with no medical history, admitted with: 1) Septic shock: resolved; etio ? H. flu bacteremia. New low grade fever. S/P BAL 03/18/2018 +Staph aureus 2) Acute respiratory failure: now on vent. Initial CXR not suggestive of pneumonia, low suspicion for PJP pneumonia especially since patient reported a good recent CD4 count. Repeat CXRs are probably more suggestive of fluid over load / pulmonary edema which has steadily been improving with diuretics. Anyways, patient on Atovaquone which will cover PJP. Avoiding Bactrim due to thrombocytopenia. 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 Initial CXR not suggestive of pneumonia. Repeat blood cultures neg. CT chest showed possible LLL infiltrate/atelectasis/mucous plugging 4) HIV positive: Apparently he has been HIV positive, used to be on meds - Genvoya but stopped taking it 6 months ago, states his last CD4 count was 400+. 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 improving. [id number] pending. No schistocytes. FELICIA neg, ANCA neg. C3 low (unclear significance), C4 normal. 6) Cardiomyopathy: low EF. etiology unclear. ?HIV related. Cardiology following. Recs: - add vancomycin to cover empirically for MRSA pneumonia until MRSA is r/o - stop Cefepime 2 gm q12 hrs D10 of 10 - continue mepron (atovaquone) - f/u HIV-genotype Dr Vasquez will cover on Wednesday MD [facility] C: [phone] O: [phone] F: [phone] Subjective Date of service: 03/19/18 Principal diagnosis: low plt Interval history: Patient remains on the vent FiO2 60%,p 10, on sedation x 3. Tmax 100.3. Objective - Exam Narrative Exam: Constitutional: sedated intubated, on vent. Head, Ears, Nose: Normocephalic, atraumatic. External ears, nose normal Eyes: Conjunctivae/corneas clear. No icterus. No ptosis. Neck: Supple, no meningeal signs Oral: intubated, +ETT, +NGT Cardiovascular: RRR Respiratory: CTA ace GI: bowel sounds normal. No peritoneal signs Musculoskeletal: No pedal edema, no cyanosis. Skin: No rash or abscess Hem/Lymphatic: No palpable cervical or supraclavicular nodes. No lymphangitis Psych: sedated Neurological: sedated, intubated, exam limited Right PICC - Constitutional Vitals: Vital Signs Temp Pulse Resp BP Pulse Ox 99.0 F 84 20 92/45 98 03/19/18 12:00 03/19/18 16:00 03/19/18 14:30 03/19/18 16:00 03/19/18 16:00 Temperature -Last 24 Hours Temperature 99.0 F Temperature 100.6 F Temperature 98.9 F Temperature 99.9 F Temperature 99.4 F - Labs CBC & Chem 7: 03/19/18 06:00 03/19/18 06:00 Labs: Abnormal lab results 03/18/18 03/19/18 03/19/18 Range/Units 18:40 04:50 05:27 WBC (4.5-11.0) K/mm3 RBC (3.65-5.03) M/mm3 Hgb (11.8-15.2) gm/dl Hct (35.5-45.6) % Lymph % (Auto) (13.4-35.0) % Lymph # (1.2-5.4) K/mm3 Seg Neutrophils % (40.0-70.0) % Seg Neutrophils # (1.8-7.7) K/mm3 POC ABG pCO2 46.1 H (35-45) POC ABG pO2 112 H (80-105) Chloride (98-107) mmol/L BUN (9-20) mg/dL Glucose (75-100) mg/dL POC Glucose 110 H 69 L (70-105) Calcium (8.4-10.2) mg/dL Triglycerides (2-149) mg/dL 03/19/18 03/19/18 03/19/18 Range/Units 06:00 06:00 06:00 WBC 13.0 H (4.5-11.0) K/mm3 RBC 3.43 L (3.65-5.03) M/mm3 Hgb 9.7 L (11.8-15.2) gm/dl Hct 30.6 L (35.5-45.6) % Lymph % (Auto) 8.4 L (13.4-35.0) % Lymph # 1.1 L (1.2-5.4) K/mm3 Seg Neutrophils % 87.4 H (40.0-70.0) % Seg Neutrophils # 11.4 H (1.8-7.7) K/mm3 POC ABG pCO2 (35-45) POC ABG pO2 (80-105) Chloride 107.8 H (98-107) mmol/L BUN 28 H (9-20) mg/dL Glucose 220 H (75-100) mg/dL POC Glucose (70-105) Calcium 8.1 L (8.4-10.2) mg/dL Triglycerides 177 H (2-149) mg/dL 03/19/18 Range/Units 17:10 WBC (4.5-11.0) K/mm3 RBC (3.65-5.03) M/mm3 Hgb (11.8-15.2) gm/dl Hct (35.5-45.6) % Lymph % (Auto) (13.4-35.0) % Lymph # (1.2-5.4) K/mm3 Seg Neutrophils % (40.0-70.0) % Seg Neutrophils # (1.8-7.7) K/mm3 POC ABG pCO2 (35-45) POC ABG pO2 (80-105) Chloride (98-107) mmol/L BUN (9-20) mg/dL Glucose (75-100) mg/dL POC Glucose 132 H (70-105) Calcium (8.4-10.2) mg/dL Triglycerides (2-149) mg/dL
[2018-03-19] MEDS ORDERED: .VANCOMYCIN VIAL 1,000 MG in NACL 0.9% 100 ML IV SCH (19:00)
--- NOTE | 2018-03-19 19:27 | Hem/Onc Progress Note ---
Assessment and Plan 1. Thrombocytopenia. I reviewed the peripheral smear. I spoke to the laboratory engineer. The laboratory report mentioned no schistocytes. When I reviewed the smear it did not have any schistocytes. Creatinine is elevated. The patient is short of breath. 2. At this time, differential includes some idiopathic thrombocytopenic purpura. Other differentials include immunosuppression related or medication or infection related. The patient's PT, PTT is elevated, but fibrinogen is not low. At admission, chest x-ray was clear and now it has worsened. There is a clinical suspicion of this being infection or disseminated intravascular coagulation or acute respiratory distress syndrome. 3. Renal impairment. 4. Decreased urine output. 5. h/o Shortness of breath. 6. Human immunodeficiency virus, pt was on treatment. 7. discussed with IDT. 8. steroid trial. 9. BNP was elevated. 10. I ordered [id number]. 11. Abnormal liver function tests. 12. Being treated for Haemophilus influenzae. 13. CD4 count 400. I will follow the patient during inpatient stay. 03/11/2018 - d/w dr garrison - low EF pt is on dexa 40 daily s/p plt transfusion no active bleeding 03/12/2018 s/p plt transfusion on dexa intubated d/w lab reg [id number] HIV d/w dr ojeda 03/15 - low folate plt better once plt >100 - will look into altering steroids as per nurse - good urine OP 03/16/2017 - pt plt are better - will follow off pressors 03/17/2018 - hb low as s iron was low - iv iron trial plt 85 - ct dexa for now - once >100 will look into changing ADAMTS - report not seen 03/18/2018 - plt 140s - change dexa to prednisone hb better good urine OP still on vent' 03/19/2018 on vent plt stable - on oral prednisone - Patient Problems (1) Thrombocytopenia Current Visit: Yes Status: Acute Subjective Date of service: 03/19/18 Principal diagnosis: itp Interval history: still on ent- d/ family and RN Objective - Exam Narrative Exam: on vent - Constitutional Vitals: Last Vital Signs Temp 97.6 F 03/19/18 16:00 Pulse 82 03/19/18 18:15 Resp 20 03/19/18 18:15 BP 96/50 03/19/18 18:15 Pulse Ox 99 03/19/18 18:15 General appearance: other (intubated) Performance status: 4-completely disabled - EENT Lymph node exam: negative cervical, negative supraclavicular - Respiratory Respiratory effort: Positive: other (vent) Respiratory: bilateral: diminished - Cardiovascular Heart Sounds: Present: S1 & S2 Extremities: No edema - Gastrointestinal General gastrointestinal: Present: soft Rectal Exam: deferred - Genitourinary Male genitourinary: Present: deferred - Integumentary Integumentary: warm - Neurologic Neurologic: other (sedated) - Labs Lab Results: Laboratory Results - last 24 hr 03/18/18 03/19/18 03/19/18 18:40 00:15 04:50 WBC RBC Hgb Hct MCV MCH MCHC RDW Plt Count Lymph % (Auto) Jack % (Auto) Eos % (Auto) Baso % (Auto) Lymph # Jack # Eos # Baso # Seg Neutrophils % Seg Neutrophils # POC ABG pH 7.375 POC ABG pCO2 46.1 H POC ABG pO2 112 H POC ABG HCO3 27.0 POC ABG Total CO2 28 POC ABG O2 Sat 98 POC ABG Base Excess 2 FiO2 65 Sodium Potassium Chloride Carbon Dioxide Anion Gap BUN Creatinine Estimated GFR BUN/Creatinine Ratio Glucose POC Glucose 110 H 89 Calcium Phosphorus Magnesium Triglycerides 03/19/18 03/19/18 03/19/18 05:27 06:00 06:00 WBC 13.0 H RBC 3.43 L Hgb 9.7 L Hct 30.6 L MCV 89 MCH 28 MCHC 32 RDW 14.4 Plt Count 156 Lymph % (Auto) 8.4 L Jack % (Auto) 3.5 Eos % (Auto) 0.5 Baso % (Auto) 0.2 Lymph # 1.1 L Jack # 0.5 Eos # 0.1 Baso # 0.0 Seg Neutrophils % 87.4 H Seg Neutrophils # 11.4 H POC ABG pH POC ABG pCO2 POC ABG pO2 POC ABG HCO3 POC ABG Total CO2 POC ABG O2 Sat POC ABG Base Excess FiO2 Sodium 144 Potassium 4.0 Chloride 107.8 H Carbon Dioxide 26 Anion Gap 14 BUN 28 H Creatinine 0.8 Estimated GFR > 60 BUN/Creatinine Ratio 35 Glucose 220 H POC Glucose 69 L Calcium 8.1 L Phosphorus 3.10 Magnesium Triglycerides 03/19/18 03/19/18 03/19/18 06:00 06:00 11:49 WBC RBC Hgb Hct MCV MCH MCHC RDW Plt Count Lymph % (Auto) Jack % (Auto) Eos % (Auto) Baso % (Auto) Lymph # Jack # Eos # Baso # Seg Neutrophils % Seg Neutrophils # POC ABG pH POC ABG pCO2 POC ABG pO2 POC ABG HCO3 POC ABG Total CO2 POC ABG O2 Sat POC ABG Base Excess FiO2 Sodium Potassium Chloride Carbon Dioxide Anion Gap BUN Creatinine Estimated GFR BUN/Creatinine Ratio Glucose POC Glucose 97 Calcium Phosphorus Magnesium 1.90 Triglycerides 177 H 03/19/18 17:10 WBC RBC Hgb Hct MCV MCH MCHC RDW Plt Count Lymph % (Auto) Jack % (Auto) Eos % (Auto) Baso % (Auto) Lymph # Jack # Eos # Baso # Seg Neutrophils % Seg Neutrophils # POC ABG pH POC ABG pCO2 POC ABG pO2 POC ABG HCO3 POC ABG Total CO2 POC ABG O2 Sat POC ABG Base Excess FiO2 Sodium Potassium Chloride Carbon Dioxide Anion Gap BUN Creatinine Estimated GFR BUN/Creatinine Ratio Glucose POC Glucose 132 H Calcium Phosphorus Magnesium Triglycerides Medications & Allergies - Medications Allergies/Adverse Reactions: Allergies clindamycin Allergy (Verified 03/09/18 06:43) Swelling Home Medications: Home Medications Medication Instructions Recorded Confirmed Last Taken Type No Known Home Medications [No 03/09/18 03/09/18 Unknown History Reported Home Medications] Active Medications: Generic Name Dose Route Start Last Admin Trade Name Freq PRN Reason Stop Dose Admin Lipase/Protease/Amylase 1 each 03/14/18 16:04 [place] 10,500 Unit FEEDTUBE PRN PRN For Clogged Feeding Tube Atovaquone 1,500 mg 03/11/18 20:00 03/19/18 10:27 Mepron PO 1,500 mg QDAY LIU Administration Clonazepam 1 mg 03/18/18 11:00 03/19/18 16:02 Klonopin PO 1 mg Q8HR LIU Administration Dextrose 50 ml 03/09/18 16:15 03/19/18 06:17 D50w (25gm) Syringe IV 50 ml PRN PRN Administration HYPOGLYCEMIA Fentanyl 50 mcg 03/14/18 09:44 03/18/18 02:38 Sublimaze IV 50 mcg Q2H PRN Administration Pain , Severe (7-10) Folic Acid 1 mg 03/15/18 10:00 03/19/18 10:25 Folvite PO 1 mg QDAY LIU Administration Hydrophilic Ointment 1 applic 03/12/18 07:47 03/13/18 11:34 Vaseline Lip Therapy TP 1 applic Q2HR PRN Administration Dry Lips Norepinephrine 4 mg in 250 mls @ 7.5 mls/hr 03/09/18 23:45 03/12/18 13:57 Levophed Drip 4 Mg/Ns 250 Ml IV 0 mcg/min TITR LIU 0 mls/hr Titration Protocol 2 MCG/MIN Vasopressin 20 unit/ Sodium 101 mls @ 9.09 mls/hr 03/10/18 11:00 03/14/18 10:30 Chloride IV 0 units/min TITR LIU 0 mls/hr Titration Protocol 0.03 UNITS/MIN Propofol 1,000 mg in 100 mls @ 2.721 mls/hr 03/12/18 08:00 03/19/18 16:51 Diprivan 10 Mg/Ml IV 20 mcg/kg/min TITR LIU 10.884 mls/hr Administration Protocol 5 MCG/KG/MIN Fentanyl Citrate 2,000 mcg in 100 mls @ 4.535 mls/hr 03/14/18 10:00 03/19/18 16:53 Fentanyl Drip Premix IV 3 mcg/kg/hr TITR LIU 13.605 mls/hr Administration Protocol 1 MCG/KG/HR Midazolam HCl 100 mg/ Sodium 100 mls @ 2 mls/hr 03/15/18 19:00 03/19/18 06:45 Chloride IV 4 mg/hr TITR LIU 4 mls/hr Titration Protocol 2 MG/HR Dopamine HCl/Dextrose 800 mg in 250 mls @ 2.936 mls/hr 03/18/18 01:00 Intropin Drip 800 Mg/D5w 250 Ml IV TITR LIU Protocol 2 MCG/KG/MIN Vancomycin HCl 1 gm in 250 mls @ 125 mls/hr 03/19/18 20:00 Vancomycin/Ns 1 Gm/250 Ml IV Q8H [facility] Protocol Insulin Human Lispro 0 unit 03/14/18 12:00 03/19/18 18:32 Humalog SUB-Q Not Given Q6HR LIU Protocol Lansoprazole 30 mg 03/14/18 10:00 03/19/18 10:26 Prevacid Solutab FEEDTUBE 30 mg QDAY LIU Administration Lorazepam 2 mg 01/08/19 17:14 03/19/18 07:19 Ativan IV 2 mg Q3H PRN Administration Agitation Midazolam HCl 2 mg 03/15/18 18:03 03/17/18 10:31 Versed IV 2 mg Q10MIN PRN Administration Sedation Morphine Sulfate 2 mg 03/14/18 05:25 03/14/18 07:49 Morphine IV 2 mg Q4H PRN Administration Pain, Moderate (4-6) Multi-Ingred Cream/Lotion/Oil/Oint 1 applic 03/12/18 07:47 Artificial Tears Ophth Oint OU Q4HR PRN Dry Eye(s) Ondansetron HCl 4 mg 03/14/18 08:00 Zofran IV Q8H PRN Nausea And Vomiting Prednisone 50 mg 03/18/18 10:00 03/19/18 10:26 Deltasone PO 50 mg QDAY LIU Administration Quetiapine Fumarate 50 mg 03/18/18 11:00 03/19/18 10:24 Seroquel PO 50 mg BID LIU Administration Senna/Docusate Sodium 2 tab 03/16/18 11:00 03/19/18 10:26 Senokot S PO 2 tab BID LIU Administration Simple Syrup 15 ml 03/14/18 16:04 Simple Syrup FEEDTUBE PRN PRN Hypoglycemia Simple Syrup 30 ml 03/14/18 16:04 Simple Syrup FEEDTUBE PRN PRN Hypoglycemia Sodium Chloride 10 ml 03/09/18 22:00 03/19/18 11:20 Sodium Chloride Flush Syringe 10 Ml IV 10 ml BID LIU Administration Sodium Chloride 10 ml 03/09/18 10:41 Sodium Chloride Flush Syringe 10 Ml IV PRN PRN LINE FLUSH
[2018-03-19] MEDS: VANCOMYCIN/NS 1 GM/250 ML 1 GM/250 ML BAG IV SCH (20:56)
[2018-03-20] MEDS: HumaLOG SUB-Q SCH ×4 (00:28→18:58)
[2018-03-20] MEDS: DIPRIVAN 10 MG/ML 1,000 MG/100 ML BOTTLE IV SCH ×3 (04:26→18:17)
[2018-03-20] MEDS: VANCOMYCIN/NS 1 GM/250 ML 1 GM/250 ML BAG IV SCH ×2 (04:59→12:15)
[2018-03-20 05:09] LABS: Hematocrit 31.2 % (35.5-45.6); Hemoglobin 10.5 gm/dl (11.8-15.2); Mean Corpuscular HGB Conc 34 % (32-34); Mean Corpuscular Volume 88 fl (84-94); Platelet Count 196 K/mm3 (140-440); Red Blood Count 3.53 M/mm3 (3.65-5.03); Red Cell Distribution Width 14.4 % (13.2-15.2)
[2018-03-20 05:15] LABS: BUN/Creatinine Ratio 38; Blood Urea Nitrogen 30 mg/dL (9-20); Calcium 8.1 mg/dL (8.4-10.2); Hemolysis Index 51
[2018-03-20] MEDS: fentaNYL DRIP Premix 2,000 MCG/100 ML BAG IV SCH ×3 (05:52→21:47)
[2018-03-20 06:12] LABS: Basophils % (Manual) 0 % (0.0-1.8); Eosinophils % (Manual) 0 % (0.0-4.3); Total Cells Counted 100
[2018-03-20 06:13] LABS: Anisocytosis 1+; Platelet Estimate Consistent w Auto
[2018-03-20] MEDS: ATIVAN IV PRN (10:03)
[2018-03-20] MEDS: MEPRON PO SCH (10:04)
[2018-03-20] MEDS: PREVACID SOLUTAB FEEDTUBE SCH (10:05)
[2018-03-20] MEDS: SENOKOT S PO SCH ×2 (10:06→21:38)
[2018-03-20] MEDS: DELTASONE PO SCH (10:07)
[2018-03-20] MEDS: FOLVITE PO SCH (10:08)
--- NOTE | 2018-03-20 11:01 | Progress Note ---
Assessment and Plan Assessment and plan: 33 yo with HIV infection. He initially presented with nausea, vomiting, general weakness and chills for 2 days. He was getting weaker, no Urine output therefore came to ED for evaluation. In ED, labs show acute kidney injury with metabolic acidosis thrombocytopenia. He was Sepic, hypotensive. Septic shock/Haemophilus hemolyticus bacteremia sp IVF and pressors, weaned off pressors Antibiotics per ID head and Sinus CT negative ITP, Thrombocytopenia, stable and improving, , no schistocytes seen on smear sp plt transfusion and steroids Acute hypoxic respiratory failure on MV >96 hours, intubated since 03/12/17 Pulmonary input appreciated, left hemidiaphragm is elevated, CT chest now shows partial left atelectesis, management per pulmonology sp bronch 03/18, fup cultures wean off vent per pulmonology hyperkalemia medically rx, resolved HIV positive. Diagnosed 6 yrs ago, Stopped taking his medications over 6 months ago which was generally oriented. Last CD4 count was 400, current CD4 and HIV viral load are still pending SCOTT resolved, avoid nephrotoxins Hyponatremia,Hypoglycemia. treated and resolved Coagulopathy, improved Acute toxic metabolic encephalpathy has been agitated and hard to sedate, obtain UDS -cont iv sedation dvt ppx -scds in light of thrombocytopenia Critical care time 35 minutes The patient does not want his HIV status being discussed with his family. History Interval history: Patient has been agitated easily, requiring restraints and IV sedation No fevers, no seizures no vomiting Hospitalist Physical - Physical exam Narrative exam: General.: Appears well, no distress, nontoxic HEENT: Moist mucous membranes, extraocular muscles intact, no lymphadenopathy Neck: supple Cardiac: S1-S2 heard Lungs: Ventilated breath sounds Abdomen: soft , nontender, nondistended, bowel sounds positive Extremities: no edema clubbing or cyanosis Skin: no rash or lesions Neurologic: Intubated and sedated - Constitutional Vitals: Temp Pulse Resp BP Pulse Ox 100.1 F H 97 H 12 100/58 98 03/20/18 08:00 03/20/18 08:53 03/20/18 08:00 03/20/18 08:53 03/20/18 08:53 General appearance: Present: cachectic, other (chronically ill-appearing) Results - Labs CBC & Chem 7: 03/20/18 04:00 03/20/18 04:00 Labs: Laboratory Last Values WBC 19.0 K/mm3 (4.5-11.0) H 03/20/18 04:00 RBC 3.53 M/mm3 (3.65-5.03) L 03/20/18 04:00 Hgb 10.5 gm/dl (11.8-15.2) L 03/20/18 04:00 Hct 31.2 % (35.5-45.6) L 03/20/18 04:00 MCV 88 fl (84-94) 03/20/18 04:00 MCH 30 pg (28-32) 03/20/18 04:00 MCHC 34 % (32-34) 03/20/18 04:00 RDW 14.4 % (13.2-15.2) 03/20/18 04:00 Plt Count 196 K/mm3 (140-440) 03/20/18 04:00 Lymph % (Auto) 8.4 % (13.4-35.0) L 03/19/18 06:00 [place] % (Auto) 3.5 % (0.0-7.3) 03/19/18 06:00 Eos % (Auto) 0.5 % (0.0-4.3) 03/19/18 06:00 Baso % (Auto) 0.2 % (0.0-1.8) 03/19/18 06:00 Lymph # 1.1 K/mm3 (1.2-5.4) L 03/19/18 06:00 [place] # 0.5 K/mm3 (0.0-0.8) 03/19/18 06:00 Eos # 0.1 K/mm3 (0.0-0.4) 03/19/18 06:00 Baso # 0.0 K/mm3 (0.0-0.1) 03/19/18 06:00 Add Manual Diff Complete 03/20/18 04:00 Total Counted 100 03/20/18 04:00 Seg Neutrophils % 87.4 % (40.0-70.0) H 03/19/18 06:00 Seg Neuts % (Manual) 94.0 % (40.0-70.0) H 03/20/18 04:00 Band Neutrophils % 0 % 03/20/18 04:00 Lymphocytes % (Manual) 4.0 % (13.4-35.0) L 03/20/18 04:00 Reactive Lymphs % (Man) 0 % 03/20/18 04:00 Monocytes % (Manual) 2.0 % (0.0-7.3) 03/20/18 04:00 Eosinophils % (Manual) 0 % (0.0-4.3) 03/20/18 04:00 Basophils % (Manual) 0 % (0.0-1.8) 03/20/18 04:00 Metamyelocytes % 0 % 03/20/18 04:00 Myelocytes % 0 % 03/20/18 04:00 Promyelocytes % 0 % 03/20/18 04:00 Blast Cells % 0 % 03/20/18 04:00 Nucleated RBC % Not Reportable 03/20/18 04:00 Seg Neutrophils # 11.4 K/mm3 (1.8-7.7) H 03/19/18 06:00 Seg Neutrophils # Man 17.9 K/mm3 (1.8-7.7) H 03/20/18 04:00 Band Neutrophils # 0.0 K/mm3 03/20/18 04:00 Abs Lymphs (Manual) 779 cells/uL (850-3900) L 03/10/18 18:15 Lymphocytes # (Manual) 0.8 K/mm3 (1.2-5.4) L 03/20/18 04:00 Abs React Lymphs (Man) 0.0 K/mm3 03/20/18 04:00 Monocytes # (Manual) 0.4 K/mm3 (0.0-0.8) 03/20/18 04:00 Eosinophils # (Manual) 0.0 K/mm3 (0.0-0.4) 03/20/18 04:00 Basophils # (Manual) 0.0 K/mm3 (0.0-0.1) 03/20/18 04:00 Metamyelocytes # 0.0 K/mm3 03/20/18 04:00 Myelocytes # 0.0 K/mm3 03/20/18 04:00 Promyelocytes # 0.0 K/mm3 03/20/18 04:00 Blast Cells # 0.0 K/mm3 03/20/18 04:00 Pathologist Review 03/12/18 06:29 WBC Morphology Not Reportable 03/20/18 04:00 Hypersegmented Neuts Not Reportable 03/20/18 04:00 Hyposegmented Neuts Not Reportable 03/20/18 04:00 Hypogranular Neuts Not Reportable 03/20/18 04:00 Smudge Cells Not Reportable 03/20/18 04:00 Toxic Granulation Not Reportable 03/20/18 04:00 Toxic Vacuolation Not Reportable 03/20/18 04:00 Dohle Bodies Not Reportable 03/20/18 04:00 Pelger-Huet Anomaly Not Reportable 03/20/18 04:00 Kamar Rods Not Reportable 03/20/18 04:00 Platelet Estimate Consistent w auto 03/20/18 04:00 Clumped Platelets Not Reportable 03/20/18 04:00 Plt Clumps, EDTA Not Reportable 03/20/18 04:00 Large Platelets Not Reportable 03/20/18 04:00 Giant Platelets Not Reportable 03/20/18 04:00 Platelet Satelliting Not Reportable 03/20/18 04:00 Plt Morphology Comment Not Reportable 03/20/18 04:00 RBC Morphology Not Reportable 03/20/18 04:00 Dimorphic RBCs Not Reportable 03/20/18 04:00 Polychromasia Not Reportable 03/20/18 04:00 Hypochromasia Not Reportable 03/20/18 04:00 Poikilocytosis Not Reportable 03/20/18 04:00 Anisocytosis 1+ 03/20/18 04:00 Microcytosis Not Reportable 03/20/18 04:00 Macrocytosis Not Reportable 03/20/18 04:00 Spherocytes Not Reportable 03/20/18 04:00 Pappenheimer Bodies Not Reportable 03/20/18 04:00 Sickle Cells Not Reportable 03/20/18 04:00 Target Cells Not Reportable 03/20/18 04:00 Tear Drop Cells Not Reportable 03/20/18 04:00 Ovalocytes Not Reportable 03/20/18 04:00 Stomatocytes Rare 03/14/18 06:00 Helmet Cells Not Reportable 03/20/18 04:00 [place] Bodies Not Reportable 03/20/18 04:00 [place] Rings Not Reportable 03/20/18 04:00 [place] Cells Not Reportable 03/20/18 04:00 Bite Cells Not Reportable 03/20/18 04:00 Crenated Cell Not Reportable 03/20/18 04:00 Elliptocytes Not Reportable 03/20/18 04:00 Acanthocytes (Spur) Not Reportable 03/20/18 04:00 Rouleaux Not Reportable 03/20/18 04:00 Hemoglobin C Crystals Not Reportable 03/20/18 04:00 Schistocytes Not Reportable 03/20/18 04:00 Malaria parasites Not Reportable 03/20/18 04:00 Jose Bodies Not Reportable 03/20/18 04:00 Hem Pathologist Commnt No 03/20/18 04:00 PT 17.2 Sec. (12.2-14.9) H 03/10/18 18:15 INR 1.36 (0.87-1.13) H 03/10/18 18:15 APTT 38.5 Sec. (24.2-36.6) H 03/10/18 18:15 Fibrinogen 852 mg/dl (211-480) H 03/10/18 18:15 POC ABG pH 7.342 (7.35-7.45) L 03/20/18 04:07 POC ABG pCO2 48.4 (35-45) H 03/20/18 04:07 POC ABG pO2 96 (80-105) 03/20/18 04:07 POC ABG HCO3 26.2 03/20/18 04:07 POC ABG Total CO2 28 03/20/18 04:07 POC ABG O2 Sat 97 03/20/18 04:07 POC ABG Base Excess 0 03/20/18 04:07 VBG pH 7.297 (7.320-7.420) L 03/09/18 07:00 FiO2 60 % 03/20/18 04:07 Sodium 141 mmol/L (137-145) 03/20/18 04:00 Potassium 4.2 mmol/L (3.6-5.0) 03/20/18 04:00 Chloride 107.1 mmol/L (98-107) H 03/20/18 04:00 Carbon Dioxide 26 mmol/L (22-30) 03/20/18 04:00 Anion Gap 12 mmol/L 03/20/18 04:00 BUN 30 mg/dL (9-20) H 03/20/18 04:00 Creatinine 0.8 mg/dL (0.8-1.5) 03/20/18 04:00 Estimated GFR > 60 ml/min 03/20/18 04:00 BUN/Creatinine Ratio 38 % 03/20/18 04:00 Glucose 143 mg/dL (75-100) H 03/20/18 04:00 POC Glucose 181 (70-105) H 03/20/18 00:01 Osmolality 256 Mosm/kg 03/14/18 07:00 Lactic Acid 4.10 mmol/L (0.7-2.0) H* 03/10/18 01:00 Uric Acid 3.5 mg/dL (3.5-7.6) 03/17/18 04:25 Calcium 8.1 mg/dL (8.4-10.2) L 03/20/18 04:00 Phosphorus 3.10 mg/dL (2.5-4.5) 03/20/18 04:00 Magnesium 1.90 mg/dL (1.7-2.3) 03/19/18 06:00 Iron 42 ug/dL (49-181) L 03/14/18 07:00 TIBC 262 mcg/dL (250-450) 03/14/18 07:00 Ferritin 532.4 ng/mL (13.0-400.0) H 03/14/18 07:00 Total Bilirubin 2.30 mg/dL (0.1-1.2) H 03/12/18 06:29 Direct Bilirubin 1.5 mg/dL (0-0.2) H 03/12/18 06:29 Indirect Bilirubin 0.8 mg/dL 03/12/18 06:29 AST 33 units/L (5-40) 03/12/18 06:29 ALT 48 units/L (7-56) 03/12/18 06:29 Alkaline Phosphatase 111 units/L (35-129) 03/12/18 06:29 Lactate Dehydrogenase 232 units/L (91-180) H 03/17/18 04:25 Total Creatine Kinase 33 units/L (55-170) L 03/17/18 04:25 NT-Pro-B Natriuret Pep 54261 pg/mL (0-450) H 03/10/18 11:16 Total Protein 6.2 g/dL (6.3-8.2) L 03/12/18 06:29 Albumin 3.1 g/dL (3.9-5) L 03/12/18 06:29 Albumin/Globulin Ratio 1.0 % 03/12/18 06:29 Triglycerides 177 mg/dL (2-149) H 03/19/18 06:00 Vitamin B12 1825 pg/mL (211-911) H 03/14/18 07:00 Folate 6.29 ng/mL (7.3-26.0) L 03/14/18 07:00 Urine Color Red (Yellow) 03/10/18 06:00 Urine Turbidity Cloudy (Clear) 03/10/18 06:00 Urine pH 5.0 (5.0-7.0) 03/10/18 06:00 Ur Specific [place] 1.009 (1.003-1.030) 03/10/18 06:00 Urine Protein 100 mg/dl mg/dL (Negative) 03/10/18 06:00 Urine Glucose (UA) Neg mg/dL (Negative) 03/10/18 06:00 Urine Ketones Neg mg/dL (Negative) 03/10/18 06:00 Urine Blood Lg (Negative) 03/10/18 06:00 Urine Nitrite Neg (Negative) 03/10/18 06:00 Urine Bilirubin Neg (Negative) 03/10/18 06:00 Urine Urobilinogen < 2.0 mg/dL (<2.0) 03/10/18 06:00 Ur Leukocyte Esterase Neg (Negative) 03/10/18 06:00 Urine WBC (Auto) 32.0 /HPF (0.0-6.0) H 03/10/18 06:00 Urine RBC (Auto) > 182.0 /HPF (0.0-6.0) 03/10/18 06:00 U Epithel Cells (Auto) 5.0 /HPF (0-13.0) 03/09/18 14:39 Urine Bacteria (Auto) 2+ /HPF (Negative) 03/10/18 06:00 Urine WBC Clumps Few /HPF 03/09/18 14:39 Amorphous Crystals 3+ 03/10/18 06:00 Granular Casts 29 /LPF 03/10/18 06:00 Urine Creatinine 210.7 mg/dL (0.1-20.0) H 03/09/18 14:39 Protein/Creatinin Ratio 3.89 03/09/18 14:39 Urine Sodium 81 mmol/L 03/14/18 18:50 Urine Total Protein 820 mg/dL (5-11.8) H 03/09/18 14:39 Urine Opiates Screen Presumptive negative 03/16/18 Unknown Urine Methadone Screen Presumptive negative 03/16/18 Unknown Ur Barbiturates Screen Presumptive negative 03/16/18 Unknown Ur Phencyclidine Scrn Presumptive negative 03/16/18 Unknown Ur Amphetamines Screen Presumptive negative 03/16/18 Unknown U Benzodiazepines Scrn Presumptive negative 03/16/18 Unknown Urine Cocaine Screen Presumptive negative 03/16/18 Unknown U Marijuana (THC) Screen Presumptive positive 03/16/18 Unknown Drugs of Abuse Note Disclamer 03/16/18 Unknown FELICIA Screen Negative (Negative) 03/10/18 11:16 Proteinase 3 (PR3) Ab <1.0 AI (<1.0) 03/10/18 11:16 Myeloperoxidase Ab <1.0 AI (<1.0) 03/10/18 11:16 Glomerular Base Mem IgG See scanned result 03/10/18 11:16 Complement C3 83 mg/dL (82-185) 03/10/18 11:16 Complement C4 30 mg/dL (15-53) 03/10/18 11:16 Lymph Enumerat CD4/CD8 0.56 (0.86-5.00) L 03/10/18 18:15 % CD3 Cells 67 % (57-85) 03/10/18 18:15 Absolute CD3 Count 524 cells/uL (840-3060) L 03/10/18 18:15 % CD4 Cells 24 % (30-61) L 03/10/18 18:15 Absolute CD4 Count 194 cells/uL (490-1740) L 03/10/18 18:15 % CD8 Cells 43 % (12-42) H 03/10/18 18:15 Absolute CD8 Count 344 cells/uL (180-1170) 03/10/18 18:15 % CD19 Cells 25 % (6-29) 03/10/18 18:15 Absolute CD19 Count 188 cells/uL (110-660) 03/10/18 18:15 Hepatitis A IgM Ab Non-reactive (NonReactive) 03/09/18 20:39 Hep Bs Antigen Non-reactive (Negative) 03/09/18 20:39 Hep B Core IgM Ab Non-reactive (NonReactive) 03/09/18 20:39 Hepatitis C Antibody Non-reactive (NonReactive) 03/09/18 20:39 HIV-1 Antibody See scanned result 03/09/18 20:39 HIV-1 RNA PCR copies/ml [id number] Copies/mL H 03/10/18 18:15 HIV-1 RNA (PCR) log 4.71 Log cps/mL H 03/10/18 18:15 HIV-2 Ab (Immunoblot) See scanned result 03/09/18 20:39 HIV 1&2 Antibody Rapid Reactive (Non React) 03/09/18 20:39 HIV P24 Antigen Non react (Non React) 03/09/18 20:39 Influenza A (Rapid) Negative (Negative) 03/09/18 Unknown Influenza B (Rapid) Negative (Negative) 03/09/18 Unknown Schistocytes Smear Rare 03/10/18 11:16 Miscellaneous Test Flexitest 1 03/12/18 16:45 Blood Type O POSITIVE 03/09/18 12:36 Antibody Screen Negative 03/09/18 12:36 Nutrition/Malnutrition Assess - Dietary Evaluation Nutrition/Malnutrition Findings: Nutrition Notes Start: 03/12/18 12:51 Freq: Status: Active Protocol: Document 03/19/18 14:34 OL (Rec: 03/19/18 14:38 OL [facility]-[id number]) Nutrition Notes Initial or Follow up Reassessment Current Diagnosis Acute Kidney Injury Sepsis Respiratory Failure Other Pertinent Diagnosis HIV Current Diet NPO Labs/Tests Reviewed Pertinent Medications propofol at 16.32mL/hr ( provides 431 lipid kcal) Height 5 ft 11 in Weight 78.3 kg [place] Body Weight (lbs) 172.0 BMI 24.0 Subjective/Other Information Osmolite 1.5 infusing at 20mL/ hr. Spoke with pt.'s mother regarding TF; answered questions accordingly. TF restarted today per RN. Orders updated in chart. Burn Absent Trauma Absent #2 Nutrition Diagnosis Inadequate oral intake Diagnosis Progress(for reassessment Continues documentation) Is patient on ventilator? Yes Is Patient Ambulatory and/or Out of Bed No REE-([place] Jeor-confined to bed) 1518.071 Calculation Used for Recommendations [place] Je[place] Additional Notes Protein needs are 94-157g (1.2 -2g/kg) Fluid needs are 1ml/kcal Nutrition Intervention Change Diet Order: TF Nutrition Support: Osmolite 1.5 at 60mL/hr. 200mL free water flush q4h Kcal 2,160 Protein (gm) 90 Fluid (mL) 1,097 Goal #1 TF to meet at least 80% protein and kcal needs Anticipated Discharge Needs: Unable to determine at this time Follow-Up By: 03/22/18 Additional Comments f/u: TF to goal
--- NOTE | 2018-03-20 11:27 | Progress Note ---
Assessment and Plan - Patient Problems (1) Acute respiratory failure Current Visit: Yes Status: Acute (2) Acute renal failure Current Visit: Yes Status: Acute Plan to address problem: improved (3) Dilated cardiomyopathy Current Visit: Yes Status: Acute (4) Sepsis Current Visit: Yes Status: Acute (5) Thrombocytopenia Current Visit: Yes Status: Acute (6) Sinus tachycardia Current Visit: Yes Status: Acute Subjective Principal diagnosis: low plt Interval history: on vent mother and family at bedside mother and other family not aware of HIV status Objective Vital Signs - 12hr 03/19/18 03/20/18 03/20/18 23:30 00:00 00:30 Temperature 98.8 F Pulse Rate 81 84 85 Respiratory 13 9 L 13 Rate Blood Pressure 101/57 115/57 101/62 O2 Sat by Pulse 100 100 100 Oximetry 03/20/18 03/20/18 03/20/18 01:00 01:30 02:00 Temperature Pulse Rate 82 85 83 Respiratory 14 13 12 Rate Blood Pressure 104/59 119/57 106/65 O2 Sat by Pulse 100 100 99 Oximetry 03/20/18 03/20/18 03/20/18 02:30 03:00 03:30 Temperature Pulse Rate 84 87 92 H Respiratory 21 27 H 23 Rate Blood Pressure 117/71 130/68 145/85 O2 Sat by Pulse 100 96 98 Oximetry 03/20/18 03/20/18 03/20/18 03:53 04:00 04:30 Temperature Pulse Rate 108 H 102 H 82 Respiratory 19 29 H Rate Blood Pressure 144/96 124/56 144/96 O2 Sat by Pulse 98 96 96 Oximetry 03/20/18 03/20/18 03/20/18 05:00 05:30 06:00 Temperature Pulse Rate 78 92 H 95 H Respiratory 22 12 19 Rate Blood Pressure 140/83 91/42 O2 Sat by Pulse 84 94 97 Oximetry 03/20/18 03/20/18 03/20/18 06:30 07:00 07:30 Temperature Pulse Rate 94 H 90 97 H Respiratory 19 18 16 Rate Blood Pressure 91/42 100/64 111/54 O2 Sat by Pulse 97 93 97 Oximetry 03/20/18 03/20/18 08:00 08:53 Temperature 100.1 F H Pulse Rate 92 H 97 H Respiratory 12 Rate Blood Pressure 112/53 100/58 O2 Sat by Pulse 96 98 Oximetry Constitutional: no acute distress, other (on vent [id number] Eyes: non-icteric ENT: oropharynx dry, other (orally intubated and sedated) Neck: supple Effort: mildly labored Ascultation: Bilateral: clear, diminished breath sounds, rales (OCCASIONAL), rhonchi Percussion: Bilateral: not dull Cardiovascular: regular rate and rhythm, other (sinus tach) Gastrointestinal: normoactive bowel sounds, non-tender Integumentary: normal Extremities: no cyanosis, no edema, pink and warm Neurologic: unable to assess, other (RA SS -1) CBC and BMP: 03/20/18 04:00 03/20/18 04:00 ABG, PT/INR, D-dimer: ABG POC ABG pH 7.342 (7.35-7.45) L 03/20/18 04:07 POC ABG pCO2 48.4 (35-45) H 03/20/18 04:07 POC ABG pO2 96 (80-105) 03/20/18 04:07 POC ABG HCO3 26.2 03/20/18 04:07 POC ABG Total CO2 28 03/20/18 04:07 POC ABG O2 Sat 97 03/20/18 04:07 PT/INR, D-dimer PT 17.2 Sec. (12.2-14.9) H 03/10/18 18:15 INR 1.36 (0.87-1.13) H 03/10/18 18:15 Abnormal lab findings: Abnormal Labs 03/09/18 03/09/18 03/09/18 07:00 07:00 07:00 WBC RBC Hgb Hct RDW 15.5 H Plt Count 25 L Lymph % (Auto) Lymph # Seg Neutrophils % Seg Neuts % (Manual) 90.0 H Lymphocytes % (Manual) 5.0 L Monocytes % (Manual) Seg Neutrophils # Seg Neutrophils # Man Abs Lymphs (Manual) Lymphocytes # (Manual) 0.4 L Monocytes # (Manual) PT 22.9 H INR 1.98 H APTT Fibrinogen POC ABG pH POC ABG pCO2 POC ABG pO2 VBG pH Sodium 135 L Potassium Chloride 90.8 L Carbon Dioxide 17 L BUN 45 H Creatinine 5.8 H Glucose 72 L POC Glucose Lactic Acid Calcium 7.6 L Phosphorus Magnesium Iron Ferritin Total Bilirubin Direct Bilirubin Alkaline Phosphatase 154 H Lactate Dehydrogenase Total Creatine Kinase NT-Pro-B Natriuret Pep Total Protein Albumin 3.6 L Triglycerides Vitamin B12 Folate Urine WBC (Auto) Urine Creatinine Urine Total Protein Complement C3 Lymph Enumerat CD4/CD8 Absolute CD3 Count % CD4 Cells Absolute CD4 Count % CD8 Cells HIV-1 RNA PCR copies/ml HIV-1 RNA (PCR) log 03/09/18 03/09/18 03/09/18 07:00 07:00 07:00 WBC RBC Hgb Hct RDW Plt Count Lymph % (Auto) Lymph # Seg Neutrophils % Seg Neuts % (Manual) Lymphocytes % (Manual) Monocytes % (Manual) Seg Neutrophils # Seg Neutrophils # Man Abs Lymphs (Manual) Lymphocytes # (Manual) Monocytes # (Manual) PT INR APTT Fibrinogen POC ABG pH POC ABG pCO2 POC ABG pO2 VBG pH 7.297 L Sodium Potassium Chloride Carbon Dioxide BUN Creatinine Glucose POC Glucose Lactic Acid 6.80 H* Calcium Phosphorus 5.40 H Magnesium 1.20 L Iron Ferritin Total Bilirubin Direct Bilirubin Alkaline Phosphatase Lactate Dehydrogenase Total Creatine Kinase 228 H NT-Pro-B Natriuret Pep Total Protein Albumin Triglycerides Vitamin B12 Folate Urine WBC (Auto) Urine Creatinine Urine Total Protein Complement C3 Lymph Enumerat CD4/CD8 Absolute CD3 Count % CD4 Cells Absolute CD4 Count % CD8 Cells HIV-1 RNA PCR copies/ml HIV-1 RNA (PCR) log 03/09/18 03/09/18 03/09/18 09:22 12:36 14:39 WBC RBC Hgb Hct RDW Plt Count Lymph % (Auto) Lymph # Seg Neutrophils % Seg Neuts % (Manual) Lymphocytes % (Manual) Monocytes % (Manual) Seg Neutrophils # Seg Neutrophils # Man Abs Lymphs (Manual) Lymphocytes # (Manual) Monocytes # (Manual) PT INR APTT Fibrinogen POC ABG pH POC ABG pCO2 POC ABG pO2 VBG pH Sodium Potassium Chloride Carbon Dioxide BUN Creatinine Glucose POC Glucose Lactic Acid 5.90 H* 8.30 H* Calcium Phosphorus Magnesium Iron Ferritin Total Bilirubin Direct Bilirubin Alkaline Phosphatase Lactate Dehydrogenase Total Creatine Kinase NT-Pro-B Natriuret Pep Total Protein Albumin Triglycerides Vitamin B12 Folate Urine WBC (Auto) 86.0 H Urine Creatinine Urine Total Protein Complement C3 Lymph Enumerat CD4/CD8 Absolute CD3 Count % CD4 Cells Absolute CD4 Count % CD8 Cells HIV-1 RNA PCR copies/ml HIV-1 RNA (PCR) log 03/09/18 03/09/18 03/09/18 14:39 14:39 15:12 WBC RBC Hgb Hct RDW Plt Count Lymph % (Auto) Lymph # Seg Neutrophils % Seg Neuts % (Manual) Lymphocytes % (Manual) Monocytes % (Manual) Seg Neutrophils # Seg Neutrophils # Man Abs Lymphs (Manual) Lymphocytes # (Manual) Monocytes # (Manual) PT INR APTT Fibrinogen POC ABG pH POC ABG pCO2 POC ABG pO2 VBG pH Sodium Potassium Chloride Carbon Dioxide BUN Creatinine Glucose POC Glucose Lactic Acid 5.90 H* Calcium Phosphorus Magnesium Iron Ferritin Total Bilirubin Direct Bilirubin Alkaline Phosphatase Lactate Dehydrogenase Total Creatine Kinase NT-Pro-B Natriuret Pep Total Protein Albumin Triglycerides Vitamin B12 Folate Urine WBC (Auto) Urine Creatinine 217.1 H 210.7 H Urine Total Protein 820 H Complement C3 Lymph Enumerat CD4/CD8 Absolute CD3 Count % CD4 Cells Absolute CD4 Count % CD8 Cells HIV-1 RNA PCR copies/ml HIV-1 RNA (PCR) log 03/09/18 03/09/18 03/09/18 15:53 18:20 20:39 WBC RBC Hgb Hct RDW Plt Count Lymph % (Auto) Lymph # Seg Neutrophils % Seg Neuts % (Manual) Lymphocytes % (Manual) Monocytes % (Manual) Seg Neutrophils # Seg Neutrophils # Man Abs Lymphs (Manual) Lymphocytes # (Manual) Monocytes # (Manual) PT INR APTT Fibrinogen POC ABG pH POC ABG pCO2 POC ABG pO2 VBG pH Sodium Potassium Chloride Carbon Dioxide BUN Creatinine Glucose POC Glucose 56 L Lactic Acid 5.10 H* 4.40 H* Calcium Phosphorus Magnesium Iron Ferritin Total Bilirubin Direct Bilirubin Alkaline Phosphatase Lactate Dehydrogenase Total Creatine Kinase NT-Pro-B Natriuret Pep Total Protein Albumin Triglycerides Vitamin B12 Folate Urine WBC (Auto) Urine Creatinine Urine Total Protein Complement C3 Lymph Enumerat CD4/CD8 Absolute CD3 Count % CD4 Cells Absolute CD4 Count % CD8 Cells HIV-1 RNA PCR copies/ml HIV-1 RNA (PCR) log 03/09/18 03/09/18 03/09/18 20:39 21:33 23:08 WBC RBC Hgb Hct RDW Plt Count Lymph % (Auto) Lymph # Seg Neutrophils % Seg Neuts % (Manual) Lymphocytes % (Manual) Monocytes % (Manual) Seg Neutrophils # Seg Neutrophils # Man Abs Lymphs (Manual) Lymphocytes # (Manual) Monocytes # (Manual) PT INR APTT Fibrinogen POC ABG pH POC ABG pCO2 POC ABG pO2 VBG pH Sodium Potassium Chloride Carbon Dioxide BUN Creatinine Glucose POC Glucose Lactic Acid 4.90 H* 4.10 H* Calcium Phosphorus Magnesium Iron Ferritin Total Bilirubin Direct Bilirubin Alkaline Phosphatase Lactate Dehydrogenase Total Creatine Kinase NT-Pro-B Natriuret Pep Total Protein Albumin Triglycerides Vitamin B12 Folate Urine WBC (Auto) Urine Creatinine Urine Total Protein Complement C3 77 L Lymph Enumerat CD4/CD8 Absolute CD3 Count % CD4 Cells Absolute CD4 Count % CD8 Cells HIV-1 RNA PCR copies/ml HIV-1 RNA (PCR) log 03/10/18 03/10/18 03/10/18 01:00 04:40 04:40 WBC 11.8 H RBC Hgb 11.7 L Hct RDW Plt Count 8 L* Lymph % (Auto) Lymph # Seg Neutrophils % Seg Neuts % (Manual) 93.0 H Lymphocytes % (Manual) 4.0 L Monocytes % (Manual) Seg Neutrophils # Seg Neutrophils # Man 11.0 H Abs Lymphs (Manual) Lymphocytes # (Manual) 0.5 L Monocytes # (Manual) PT INR APTT Fibrinogen POC ABG pH POC ABG pCO2 POC ABG pO2 VBG pH Sodium 136 L Potassium Chloride 96.6 L Carbon Dioxide 21 L BUN 62 H Creatinine 4.9 H Glucose POC Glucose Lactic Acid 4.10 H* Calcium 6.2 L D Phosphorus Magnesium Iron Ferritin Total Bilirubin Direct Bilirubin Alkaline Phosphatase Lactate Dehydrogenase Total Creatine Kinase NT-Pro-B Natriuret Pep Total Protein Albumin Triglycerides Vitamin B12 Folate Urine WBC (Auto) Urine Creatinine Urine Total Protein Complement C3 Lymph Enumerat CD4/CD8 Absolute CD3 Count % CD4 Cells Absolute CD4 Count % CD8 Cells HIV-1 RNA PCR copies/ml HIV-1 RNA (PCR) log 03/10/18 03/10/18 03/10/18 05:32 06:00 09:10 WBC RBC Hgb Hct RDW Plt Count Lymph % (Auto) Lymph # Seg Neutrophils % Seg Neuts % (Manual) Lymphocytes % (Manual) Monocytes % (Manual) Seg Neutrophils # Seg Neutrophils # Man Abs Lymphs (Manual) Lymphocytes # (Manual) Monocytes # (Manual) PT INR APTT Fibrinogen POC ABG pH 7.254 L POC ABG pCO2 47.8 H POC ABG pO2 59 L VBG pH Sodium Potassium Chloride Carbon Dioxide BUN Creatinine Glucose POC Glucose 56 L Lactic Acid Calcium Phosphorus Magnesium Iron Ferritin Total Bilirubin Direct Bilirubin Alkaline Phosphatase Lactate Dehydrogenase Total Creatine Kinase NT-Pro-B Natriuret Pep Total Protein Albumin Triglycerides Vitamin B12 Folate Urine WBC (Auto) 32.0 H Urine Creatinine Urine Total Protein Complement C3 Lymph Enumerat CD4/CD8 Absolute CD3 Count % CD4 Cells Absolute CD4 Count % CD8 Cells HIV-1 RNA PCR copies/ml HIV-1 RNA (PCR) log 03/10/18 03/10/18 03/10/18 09:14 11:16 11:16 WBC RBC Hgb Hct RDW Plt Count Lymph % (Auto) Lymph # Seg Neutrophils % Seg Neuts % (Manual) Lymphocytes % (Manual) Monocytes % (Manual) Seg Neutrophils # Seg Neutrophils # Man Abs Lymphs (Manual) Lymphocytes # (Manual) Monocytes # (Manual) PT INR APTT Fibrinogen POC ABG pH 7.266 L POC ABG pCO2 POC ABG pO2 VBG pH Sodium Potassium Chloride Carbon Dioxide BUN Creatinine Glucose POC Glucose Lactic Acid Calcium Phosphorus Magnesium Iron Ferritin Total Bilirubin Direct Bilirubin Alkaline Phosphatase Lactate Dehydrogenase 338 H Total Creatine Kinase 404 H NT-Pro-B Natriuret Pep 53756 H Total Protein Albumin Triglycerides Vitamin B12 Folate Urine WBC (Auto) Urine Creatinine Urine Total Protein Complement C3 Lymph Enumerat CD4/CD8 Absolute CD3 Count % CD4 Cells Absolute CD4 Count % CD8 Cells HIV-1 RNA PCR copies/ml HIV-1 RNA (PCR) log 03/10/18 03/10/18 03/10/18 11:51 18:15 18:15 WBC RBC Hgb Hct RDW Plt Count Lymph % (Auto) Lymph # Seg Neutrophils % Seg Neuts % (Manual) Lymphocytes % (Manual) Monocytes % (Manual) Seg Neutrophils # Seg Neutrophils # Man Abs Lymphs (Manual) Lymphocytes # (Manual) Monocytes # (Manual) PT 17.2 H 17.0 H INR 1.36 H 1.34 H APTT 38.5 H Fibrinogen 852 H POC ABG pH POC ABG pCO2 POC ABG pO2 VBG pH Sodium Potassium Chloride Carbon Dioxide BUN Creatinine Glucose POC Glucose 109 H Lactic Acid Calcium Phosphorus Magnesium Iron Ferritin Total Bilirubin Direct Bilirubin Alkaline Phosphatase Lactate Dehydrogenase Total Creatine Kinase NT-Pro-B Natriuret Pep Total Protein Albumin Triglycerides Vitamin B12 Folate Urine WBC (Auto) Urine Creatinine Urine Total Protein Complement C3 Lymph Enumerat CD4/CD8 Absolute CD3 Count % CD4 Cells Absolute CD4 Count % CD8 Cells HIV-1 RNA PCR copies/ml HIV-1 RNA (PCR) log 03/10/18 03/10/18 03/10/18 18:15 18:15 19:45 WBC RBC Hgb Hct RDW Plt Count Lymph % (Auto) Lymph # Seg Neutrophils % Seg Neuts % (Manual) Lymphocytes % (Manual) Monocytes % (Manual) Seg Neutrophils # Seg Neutrophils # Man Abs Lymphs (Manual) 779 L Lymphocytes # (Manual) Monocytes # (Manual) PT INR APTT Fibrinogen POC ABG pH POC ABG pCO2 POC ABG pO2 VBG pH Sodium Potassium Chloride Carbon Dioxide BUN Creatinine Glucose POC Glucose 136 H Lactic Acid Calcium Phosphorus Magnesium Iron Ferritin Total Bilirubin Direct Bilirubin Alkaline Phosphatase Lactate Dehydrogenase Total Creatine Kinase NT-Pro-B Natriuret Pep Total Protein Albumin Triglycerides Vitamin B12 Folate Urine WBC (Auto) Urine Creatinine Urine Total Protein Complement C3 Lymph Enumerat CD4/CD8 0.56 L Absolute CD3 Count 524 L % CD4 Cells 24 L Absolute CD4 Count 194 L % CD8 Cells 43 H HIV-1 RNA PCR copies/ml 20534 H HIV-1 RNA (PCR) log 4.71 H 03/10/18 03/10/18 03/10/18 20:40 22:07 23:06 WBC RBC Hgb Hct RDW Plt Count Lymph % (Auto) Lymph # Seg Neutrophils % Seg Neuts % (Manual) Lymphocytes % (Manual) Monocytes % (Manual) Seg Neutrophils # Seg Neutrophils # Man Abs Lymphs (Manual) Lymphocytes # (Manual) Monocytes # (Manual) PT INR APTT Fibrinogen POC ABG pH POC ABG pCO2 POC ABG pO2 VBG pH Sodium Potassium Chloride Carbon Dioxide BUN Creatinine Glucose POC Glucose 135 H 135 H 133 H Lactic Acid Calcium Phosphorus Magnesium Iron Ferritin Total Bilirubin Direct Bilirubin Alkaline Phosphatase Lactate Dehydrogenase Total Creatine Kinase NT-Pro-B Natriuret Pep Total Protein Albumin Triglycerides Vitamin B12 Folate Urine WBC (Auto) Urine Creatinine Urine Total Protein Complement C3 Lymph Enumerat CD4/CD8 Absolute CD3 Count % CD4 Cells Absolute CD4 Count % CD8 Cells HIV-1 RNA PCR copies/ml HIV-1 RNA (PCR) log 03/11/18 03/11/18 03/11/18 00:07 02:01 03:10 WBC RBC Hgb Hct RDW Plt Count Lymph % (Auto) Lymph # Seg Neutrophils % Seg Neuts % (Manual) Lymphocytes % (Manual) Monocytes % (Manual) Seg Neutrophils # Seg Neutrophils # Man Abs Lymphs (Manual) Lymphocytes # (Manual) Monocytes # (Manual) PT INR APTT Fibrinogen POC ABG pH POC ABG pCO2 POC ABG pO2 VBG pH Sodium Potassium Chloride Carbon Dioxide BUN Creatinine Glucose POC Glucose 148 H 161 H 189 H Lactic Acid Calcium Phosphorus Magnesium Iron Ferritin Total Bilirubin Direct Bilirubin Alkaline Phosphatase Lactate Dehydrogenase Total Creatine Kinase NT-Pro-B Natriuret Pep Total Protein Albumin Triglycerides Vitamin B12 Folate Urine WBC (Auto) Urine Creatinine Urine Total Protein Complement C3 Lymph Enumerat CD4/CD8 Absolute CD3 Count % CD4 Cells Absolute CD4 Count % CD8 Cells HIV-1 RNA PCR copies/ml HIV-1 RNA (PCR) log 03/11/18 03/11/18 03/11/18 04:12 04:50 04:50 WBC 12.8 H RBC Hgb 10.9 L Hct 32.5 L RDW 15.3 H Plt Count 17 L* D Lymph % (Auto) Lymph # Seg Neutrophils % Seg Neuts % (Manual) 96.0 H Lymphocytes % (Manual) 2.0 L Monocytes % (Manual) Seg Neutrophils # Seg Neutrophils # Man 12.3 H Abs Lymphs (Manual) Lymphocytes # (Manual) 0.3 L Monocytes # (Manual) PT INR APTT Fibrinogen POC ABG pH POC ABG pCO2 POC ABG pO2 VBG pH Sodium Potassium Chloride 94.2 L Carbon Dioxide BUN 62 H Creatinine 2.7 H Glucose 191 H POC Glucose 188 H Lactic Acid Calcium 7.9 L D Phosphorus Magnesium Iron Ferritin Total Bilirubin Direct Bilirubin Alkaline Phosphatase Lactate Dehydrogenase Total Creatine Kinase NT-Pro-B Natriuret Pep Total Protein Albumin Triglycerides Vitamin B12 Folate Urine WBC (Auto) Urine Creatinine Urine Total Protein Complement C3 Lymph Enumerat CD4/CD8 Absolute CD3 Count % CD4 Cells Absolute CD4 Count % CD8 Cells HIV-1 RNA PCR copies/ml HIV-1 RNA (PCR) log 03/11/18 03/11/18 03/11/18 05:30 05:33 07:47 WBC RBC Hgb Hct RDW Plt Count Lymph % (Auto) Lymph # Seg Neutrophils % Seg Neuts % (Manual) Lymphocytes % (Manual) Monocytes % (Manual) Seg Neutrophils # Seg Neutrophils # Man Abs Lymphs (Manual) Lymphocytes # (Manual) Monocytes # (Manual) PT INR APTT Fibrinogen POC ABG pH POC ABG pCO2 POC ABG pO2 58 L VBG pH Sodium Potassium Chloride Carbon Dioxide BUN Creatinine Glucose POC Glucose 187 H 151 H Lactic Acid Calcium Phosphorus Magnesium Iron Ferritin Total Bilirubin Direct Bilirubin Alkaline Phosphatase Lactate Dehydrogenase Total Creatine Kinase NT-Pro-B Natriuret Pep Total Protein Albumin Triglycerides Vitamin B12 Folate Urine WBC (Auto) Urine Creatinine Urine Total Protein Complement C3 Lymph Enumerat CD4/CD8 Absolute CD3 Count % CD4 Cells Absolute CD4 Count % CD8 Cells HIV-1 RNA PCR copies/ml HIV-1 RNA (PCR) log 03/11/18 03/11/18 03/11/18 12:11 13:18 14:26 WBC RBC Hgb Hct RDW Plt Count Lymph % (Auto) Lymph # Seg Neutrophils % Seg Neuts % (Manual) Lymphocytes % (Manual) Monocytes % (Manual) Seg Neutrophils # Seg Neutrophils # Man Abs Lymphs (Manual) Lymphocytes # (Manual) Monocytes # (Manual) PT INR APTT Fibrinogen POC ABG pH POC ABG pCO2 POC ABG pO2 VBG pH Sodium Potassium Chloride Carbon Dioxide BUN Creatinine Glucose POC Glucose 166 H 157 H 145 H Lactic Acid Calcium Phosphorus Magnesium Iron Ferritin Total Bilirubin Direct Bilirubin Alkaline Phosphatase Lactate Dehydrogenase Total Creatine Kinase NT-Pro-B Natriuret Pep Total Protein Albumin Triglycerides Vitamin B12 Folate Urine WBC (Auto) Urine Creatinine Urine Total Protein Complement C3 Lymph Enumerat CD4/CD8 Absolute CD3 Count % CD4 Cells Absolute CD4 Count % CD8 Cells HIV-1 RNA PCR copies/ml HIV-1 RNA (PCR) log 03/11/18 03/11/18 03/11/18 14:48 15:15 16:17 WBC 21.2 H RBC Hgb 11.0 L Hct 33.8 L RDW Plt Count 15 L* Lymph % (Auto) Lymph # Seg Neutrophils % Seg Neuts % (Manual) 92.0 H Lymphocytes % (Manual) 4.0 L Monocytes % (Manual) Seg Neutrophils # Seg Neutrophils # Man 19.5 H Abs Lymphs (Manual) Lymphocytes # (Manual) 0.8 L Monocytes # (Manual) PT INR APTT Fibrinogen POC ABG pH POC ABG pCO2 POC ABG pO2 VBG pH Sodium Potassium Chloride Carbon Dioxide BUN Creatinine Glucose POC Glucose 139 H 145 H Lactic Acid Calcium Phosphorus Magnesium Iron Ferritin Total Bilirubin Direct Bilirubin Alkaline Phosphatase Lactate Dehydrogenase Total Creatine Kinase NT-Pro-B Natriuret Pep Total Protein Albumin Triglycerides Vitamin B12 Folate Urine WBC (Auto) Urine Creatinine Urine Total Protein Complement C3 Lymph Enumerat CD4/CD8 Absolute CD3 Count % CD4 Cells Absolute CD4 Count % CD8 Cells HIV-1 RNA PCR copies/ml HIV-1 RNA (PCR) log 03/11/18 03/11/18 03/11/18 17:48 20:16 21:02 WBC RBC Hgb Hct RDW Plt Count Lymph % (Auto) Lymph # Seg Neutrophils % Seg Neuts % (Manual) Lymphocytes % (Manual) Monocytes % (Manual) Seg Neutrophils # Seg Neutrophils # Man Abs Lymphs (Manual) Lymphocytes # (Manual) Monocytes # (Manual) PT INR APTT Fibrinogen POC ABG pH POC ABG pCO2 POC ABG pO2 VBG pH Sodium Potassium Chloride Carbon Dioxide BUN Creatinine Glucose POC Glucose 142 H 158 H 146 H Lactic Acid Calcium Phosphorus Magnesium Iron Ferritin Total Bilirubin Direct Bilirubin Alkaline Phosphatase Lactate Dehydrogenase Total Creatine Kinase NT-Pro-B Natriuret Pep Total Protein Albumin Triglycerides Vitamin B12 Folate Urine WBC (Auto) Urine Creatinine Urine Total Protein Complement C3 Lymph Enumerat CD4/CD8 Absolute CD3 Count % CD4 Cells Absolute CD4 Count % CD8 Cells HIV-1 RNA PCR copies/ml HIV-1 RNA (PCR) log 03/11/18 03/12/18 03/12/18 23:14 00:54 06:19 WBC 29.6 H RBC Hgb 10.6 L Hct 31.3 L RDW Plt Count 51 L D Lymph % (Auto) Lymph # Seg Neutrophils % Seg Neuts % (Manual) Lymphocytes % (Manual) Monocytes % (Manual) Seg Neutrophils # Seg Neutrophils # Man Abs Lymphs (Manual) Lymphocytes # (Manual) Monocytes # (Manual) PT INR APTT Fibrinogen POC ABG pH POC ABG pCO2 POC ABG pO2 VBG pH Sodium Potassium Chloride Carbon Dioxide BUN Creatinine Glucose POC Glucose 168 H 185 H Lactic Acid Calcium Phosphorus Magnesium Iron Ferritin Total Bilirubin Direct Bilirubin Alkaline Phosphatase Lactate Dehydrogenase Total Creatine Kinase NT-Pro-B Natriuret Pep Total Protein Albumin Triglycerides Vitamin B12 Folate Urine WBC (Auto) Urine Creatinine Urine Total Protein Complement C3 Lymph Enumerat CD4/CD8 Absolute CD3 Count % CD4 Cells Absolute CD4 Count % CD8 Cells HIV-1 RNA PCR copies/ml HIV-1 RNA (PCR) log 03/12/18 03/12/18 03/12/18 06:29 06:29 06:29 WBC 32.7 H RBC Hgb 10.5 L Hct 31.7 L RDW 15.3 H Plt Count 34 L Lymph % (Auto) Lymph # Seg Neutrophils % Seg Neuts % (Manual) 81.5 H Lymphocytes % (Manual) 7.0 L Monocytes % (Manual) 7.5 H Seg Neutrophils # Seg Neutrophils # Man 26.7 H Abs Lymphs (Manual) Lymphocytes # (Manual) Monocytes # (Manual) 2.5 H PT INR APTT Fibrinogen POC ABG pH POC ABG pCO2 POC ABG pO2 VBG pH Sodium Potassium 3.4 L Chloride Carbon Dioxide BUN 69 H Creatinine 2.2 H Glucose 181 H POC Glucose Lactic Acid Calcium Phosphorus Magnesium Iron Ferritin Total Bilirubin 2.30 H Direct Bilirubin 1.5 H Alkaline Phosphatase Lactate Dehydrogenase Total Creatine Kinase NT-Pro-B Natriuret Pep Total Protein 6.2 L Albumin 3.1 L Triglycerides Vitamin B12 Folate Urine WBC (Auto) Urine Creatinine Urine Total Protein Complement C3 Lymph Enumerat CD4/CD8 Absolute CD3 Count % CD4 Cells Absolute CD4 Count % CD8 Cells HIV-1 RNA PCR copies/ml HIV-1 RNA (PCR) log 03/12/18 03/12/18 03/12/18 07:21 07:44 10:16 WBC RBC Hgb Hct RDW Plt Count Lymph % (Auto) Lymph # Seg Neutrophils % Seg Neuts % (Manual) Lymphocytes % (Manual) Monocytes % (Manual) Seg Neutrophils # Seg Neutrophils # Man Abs Lymphs (Manual) Lymphocytes # (Manual) Monocytes # (Manual) PT INR APTT Fibrinogen POC ABG pH 7.337 L POC ABG pCO2 54.9 H POC ABG pO2 59 L VBG pH Sodium Potassium Chloride Carbon Dioxide BUN Creatinine Glucose POC Glucose 157 H 153 H Lactic Acid Calcium Phosphorus Magnesium Iron Ferritin Total Bilirubin Direct Bilirubin Alkaline Phosphatase Lactate Dehydrogenase Total Creatine Kinase NT-Pro-B Natriuret Pep Total Protein Albumin Triglycerides Vitamin B12 Folate Urine WBC (Auto) Urine Creatinine Urine Total Protein Complement C3 Lymph Enumerat CD4/CD8 Absolute CD3 Count % CD4 Cells Absolute CD4 Count % CD8 Cells HIV-1 RNA PCR copies/ml HIV-1 RNA (PCR) log 03/12/18 03/12/18 03/12/18 12:53 15:22 18:17 WBC RBC Hgb Hct RDW Plt Count Lymph % (Auto) Lymph # Seg Neutrophils % Seg Neuts % (Manual) Lymphocytes % (Manual) Monocytes % (Manual) Seg Neutrophils # Seg Neutrophils # Man Abs Lymphs (Manual) Lymphocytes # (Manual) Monocytes # (Manual) PT INR APTT Fibrinogen POC ABG pH POC ABG pCO2 61.7 H POC ABG pO2 110 H VBG pH Sodium Potassium Chloride Carbon Dioxide BUN Creatinine Glucose POC Glucose 148 H 148 H Lactic Acid Calcium Phosphorus Magnesium Iron Ferritin Total Bilirubin Direct Bilirubin Alkaline Phosphatase Lactate Dehydrogenase Total Creatine Kinase NT-Pro-B Natriuret Pep Total Protein Albumin Triglycerides Vitamin B12 Folate Urine WBC (Auto) Urine Creatinine Urine Total Protein Complement C3 Lymph Enumerat CD4/CD8 Absolute CD3 Count % CD4 Cells Absolute CD4 Count % CD8 Cells HIV-1 RNA PCR copies/ml HIV-1 RNA (PCR) log 03/12/18 03/13/18 03/13/18 21:34 01:14 04:37 WBC RBC Hgb Hct RDW Plt Count Lymph % (Auto) Lymph # Seg Neutrophils % Seg Neuts % (Manual) Lymphocytes % (Manual) Monocytes % (Manual) Seg Neutrophils # Seg Neutrophils # Man Abs Lymphs (Manual) Lymphocytes # (Manual) Monocytes # (Manual) PT INR APTT Fibrinogen POC ABG pH POC ABG pCO2 60.2 H POC ABG pO2 115 H VBG pH Sodium Potassium Chloride Carbon Dioxide BUN Creatinine Glucose POC Glucose 161 H 187 H Lactic Acid Calcium Phosphorus Magnesium Iron Ferritin Total Bilirubin Direct Bilirubin Alkaline Phosphatase Lactate Dehydrogenase Total Creatine Kinase NT-Pro-B Natriuret Pep Total Protein Albumin Triglycerides Vitamin B12 Folate Urine WBC (Auto) Urine Creatinine Urine Total Protein Complement C3 Lymph Enumerat CD4/CD8 Absolute CD3 Count % CD4 Cells Absolute CD4 Count % CD8 Cells HIV-1 RNA PCR copies/ml HIV-1 RNA (PCR) log 03/13/18 03/13/18 03/13/18 05:22 05:22 08:24 WBC 30.4 H RBC 3.45 L Hgb 9.8 L Hct 29.7 L RDW Plt Count 37 L Lymph % (Auto) Lymph # Seg Neutrophils % Seg Neuts % (Manual) 75.5 H Lymphocytes % (Manual) 3.0 L Monocytes % (Manual) Seg Neutrophils # Seg Neutrophils # Man 23.0 H Abs Lymphs (Manual) Lymphocytes # (Manual) 0.9 L Monocytes # (Manual) PT INR APTT Fibrinogen POC ABG pH POC ABG pCO2 POC ABG pO2 VBG pH Sodium 146 H Potassium Chloride Carbon Dioxide 35 H D BUN 71 H Creatinine 1.7 H Glucose 187 H POC Glucose 210 H Lactic Acid Calcium Phosphorus Magnesium Iron Ferritin Total Bilirubin Direct Bilirubin Alkaline Phosphatase Lactate Dehydrogenase Total Creatine Kinase NT-Pro-B Natriuret Pep Total Protein Albumin Triglycerides Vitamin B12 Folate Urine WBC (Auto) Urine Creatinine Urine Total Protein Complement C3 Lymph Enumerat CD4/CD8 Absolute CD3 Count % CD4 Cells Absolute CD4 Count % CD8 Cells HIV-1 RNA PCR copies/ml HIV-1 RNA (PCR) log 03/13/18 03/13/18 03/13/18 12:22 12:44 17:27 WBC RBC Hgb Hct RDW Plt Count Lymph % (Auto) Lymph # Seg Neutrophils % Seg Neuts % (Manual) Lymphocytes % (Manual) Monocytes % (Manual) Seg Neutrophils # Seg Neutrophils # Man Abs Lymphs (Manual) Lymphocytes # (Manual) Monocytes # (Manual) PT INR APTT Fibrinogen POC ABG pH POC ABG pCO2 POC ABG pO2 VBG pH Sodium Potassium Chloride Carbon Dioxide BUN Creatinine Glucose POC Glucose 208 H 169 H Lactic Acid Calcium Phosphorus Magnesium 3.00 H Iron Ferritin Total Bilirubin Direct Bilirubin Alkaline Phosphatase Lactate Dehydrogenase Total Creatine Kinase NT-Pro-B Natriuret Pep Total Protein Albumin Triglycerides Vitamin B12 Folate Urine WBC (Auto) Urine Creatinine Urine Total Protein Complement C3 Lymph Enumerat CD4/CD8 Absolute CD3 Count % CD4 Cells Absolute CD4 Count % CD8 Cells HIV-1 RNA PCR copies/ml HIV-1 RNA (PCR) log 03/13/18 03/14/18 03/14/18 23:35 04:29 05:23 WBC RBC Hgb Hct RDW Plt Count Lymph % (Auto) Lymph # Seg Neutrophils % Seg Neuts % (Manual) Lymphocytes % (Manual) Monocytes % (Manual) Seg Neutrophils # Seg Neutrophils # Man Abs Lymphs (Manual) Lymphocytes # (Manual) Monocytes # (Manual) PT INR APTT Fibrinogen POC ABG pH 7.502 H POC ABG pCO2 53.2 H POC ABG pO2 VBG pH Sodium Potassium Chloride Carbon Dioxide BUN Creatinine Glucose POC Glucose 256 H 212 H Lactic Acid Calcium Phosphorus Magnesium Iron Ferritin Total Bilirubin Direct Bilirubin Alkaline Phosphatase Lactate Dehydrogenase Total Creatine Kinase NT-Pro-B Natriuret Pep Total Protein Albumin Triglycerides Vitamin B12 Folate Urine WBC (Auto) Urine Creatinine Urine Total Protein Complement C3 Lymph Enumerat CD4/CD8 Absolute CD3 Count % CD4 Cells Absolute CD4 Count % CD8 Cells HIV-1 RNA PCR copies/ml HIV-1 RNA (PCR) log 03/14/18 03/14/18 03/14/18 06:00 06:00 06:00 WBC 27.3 H RBC 3.52 L Hgb 10.0 L Hct 30.8 L RDW Plt Count 50 L Lymph % (Auto) Lymph # Seg Neutrophils % Seg Neuts % (Manual) 87.0 H Lymphocytes % (Manual) 3.0 L Monocytes % (Manual) Seg Neutrophils # Seg Neutrophils # Man 23.8 H Abs Lymphs (Manual) Lymphocytes # (Manual) 0.8 L Monocytes # (Manual) 1.6 H PT INR APTT Fibrinogen POC ABG pH POC ABG pCO2 POC ABG pO2 VBG pH Sodium 156 H D Potassium Chloride 109.5 H Carbon Dioxide 37 H BUN 70 H Creatinine Glucose 202 H POC Glucose Lactic Acid Calcium Phosphorus Magnesium Iron Ferritin Total Bilirubin Direct Bilirubin Alkaline Phosphatase Lactate Dehydrogenase Total Creatine Kinase 17 L NT-Pro-B Natriuret Pep Total Protein Albumin Triglycerides Vitamin B12 Folate Urine WBC (Auto) Urine Creatinine Urine Total Protein Complement C3 Lymph Enumerat CD4/CD8 Absolute CD3 Count % CD4 Cells Absolute CD4 Count % CD8 Cells HIV-1 RNA PCR copies/ml HIV-1 RNA (PCR) log 03/14/18 03/14/18 03/14/18 07:00 07:00 07:00 WBC RBC Hgb Hct RDW Plt Count Lymph % (Auto) Lymph # Seg Neutrophils % Seg Neuts % (Manual) Lymphocytes % (Manual) Monocytes % (Manual) Seg Neutrophils # Seg Neutrophils # Man Abs Lymphs (Manual) Lymphocytes # (Manual) Monocytes # (Manual) PT INR APTT Fibrinogen POC ABG pH POC ABG pCO2 POC ABG pO2 VBG pH Sodium Potassium Chloride Carbon Dioxide BUN Creatinine Glucose POC Glucose Lactic Acid Calcium Phosphorus Magnesium Iron 42 L Ferritin 532.4 H Total Bilirubin Direct Bilirubin Alkaline Phosphatase Lactate Dehydrogenase Total Creatine Kinase NT-Pro-B Natriuret Pep Total Protein Albumin Triglycerides Vitamin B12 1825 H Folate Urine WBC (Auto) Urine Creatinine Urine Total Protein Complement C3 Lymph Enumerat CD4/CD8 Absolute CD3 Count % CD4 Cells Absolute CD4 Count % CD8 Cells HIV-1 RNA PCR copies/ml HIV-1 RNA (PCR) log 03/14/18 03/14/18 03/14/18 07:00 07:00 13:01 WBC RBC Hgb Hct RDW Plt Count Lymph % (Auto) Lymph # Seg Neutrophils % Seg Neuts % (Manual) Lymphocytes % (Manual) Monocytes % (Manual) Seg Neutrophils # Seg Neutrophils # Man Abs Lymphs (Manual) Lymphocytes # (Manual) Monocytes # (Manual) PT INR APTT Fibrinogen POC ABG pH POC ABG pCO2 POC ABG pO2 VBG pH Sodium Potassium Chloride Carbon Dioxide BUN Creatinine Glucose POC Glucose 201 H Lactic Acid Calcium Phosphorus Magnesium Iron Ferritin Total Bilirubin Direct Bilirubin Alkaline Phosphatase Lactate Dehydrogenase Total Creatine Kinase NT-Pro-B Natriuret Pep Total Protein Albumin Triglycerides 532 H Vitamin B12 Folate 6.29 L Urine WBC (Auto) Urine Creatinine Urine Total Protein Complement C3 Lymph Enumerat CD4/CD8 Absolute CD3 Count % CD4 Cells Absolute CD4 Count % CD8 Cells HIV-1 RNA PCR copies/ml HIV-1 RNA (PCR) log 03/14/18 03/14/18 03/14/18 17:37 21:04 23:30 WBC RBC Hgb Hct RDW Plt Count Lymph % (Auto) Lymph # Seg Neutrophils % Seg Neuts % (Manual) Lymphocytes % (Manual) Monocytes % (Manual) Seg Neutrophils # Seg Neutrophils # Man Abs Lymphs (Manual) Lymphocytes # (Manual) Monocytes # (Manual) PT INR APTT Fibrinogen POC ABG pH POC ABG pCO2 POC ABG pO2 VBG pH Sodium 155 H Potassium Chloride 114.1 H Carbon Dioxide 33 H BUN 58 H Creatinine Glucose 166 H POC Glucose 179 H 167 H Lactic Acid Calcium Phosphorus Magnesium Iron Ferritin Total Bilirubin Direct Bilirubin Alkaline Phosphatase Lactate Dehydrogenase Total Creatine Kinase NT-Pro-B Natriuret Pep Total Protein Albumin Triglycerides Vitamin B12 Folate Urine WBC (Auto) Urine Creatinine Urine Total Protein Complement C3 Lymph Enumerat CD4/CD8 Absolute CD3 Count % CD4 Cells Absolute CD4 Count % CD8 Cells HIV-1 RNA PCR copies/ml HIV-1 RNA (PCR) log 03/15/18 03/15/18 03/15/18 04:44 04:44 04:44 WBC 26.0 H RBC Hgb 10.5 L Hct 33.0 L RDW Plt Count 70 L Lymph % (Auto) Lymph # Seg Neutrophils % Seg Neuts % (Manual) 91.0 H Lymphocytes % (Manual) 6.0 L Monocytes % (Manual) Seg Neutrophils # Seg Neutrophils # Man 23.7 H Abs Lymphs (Manual) Lymphocytes # (Manual) Monocytes # (Manual) PT INR APTT Fibrinogen POC ABG pH POC ABG pCO2 POC ABG pO2 VBG pH Sodium 155 H Potassium Chloride 114.3 H Carbon Dioxide 31 H BUN 51 H Creatinine Glucose 173 H POC Glucose Lactic Acid Calcium Phosphorus Magnesium 2.80 H Iron Ferritin Total Bilirubin Direct Bilirubin Alkaline Phosphatase Lactate Dehydrogenase Total Creatine Kinase NT-Pro-B Natriuret Pep Total Protein Albumin Triglycerides Vitamin B12 Folate Urine WBC (Auto) Urine Creatinine Urine Total Protein Complement C3 Lymph Enumerat CD4/CD8 Absolute CD3 Count % CD4 Cells Absolute CD4 Count % CD8 Cells HIV-1 RNA PCR copies/ml HIV-1 RNA (PCR) log 03/15/18 03/15/18 03/15/18 04:53 06:36 17:25 WBC RBC Hgb Hct RDW Plt Count Lymph % (Auto) Lymph # Seg Neutrophils % Seg Neuts % (Manual) Lymphocytes % (Manual) Monocytes % (Manual) Seg Neutrophils # Seg Neutrophils # Man Abs Lymphs (Manual) Lymphocytes # (Manual) Monocytes # (Manual) PT INR APTT Fibrinogen POC ABG pH POC ABG pCO2 59.0 H POC ABG pO2 112 H VBG pH Sodium Potassium Chloride Carbon Dioxide BUN Creatinine Glucose POC Glucose 199 H 138 H Lactic Acid Calcium Phosphorus Magnesium Iron Ferritin Total Bilirubin Direct Bilirubin Alkaline Phosphatase Lactate Dehydrogenase Total Creatine Kinase NT-Pro-B Natriuret Pep Total Protein Albumin Triglycerides Vitamin B12 Folate Urine WBC (Auto) Urine Creatinine Urine Total Protein Complement C3 Lymph Enumerat CD4/CD8 Absolute CD3 Count % CD4 Cells Absolute CD4 Count % CD8 Cells HIV-1 RNA PCR copies/ml HIV-1 RNA (PCR) log 03/15/18 03/16/18 03/16/18 23:20 03:59 05:01 WBC 21.9 H RBC Hgb 10.3 L Hct 32.5 L RDW Plt Count 88 L Lymph % (Auto) Lymph # Seg Neutrophils % Seg Neuts % (Manual) 98.0 H Lymphocytes % (Manual) 2.0 L Monocytes % (Manual) Seg Neutrophils # Seg Neutrophils # Man 21.5 H Abs Lymphs (Manual) Lymphocytes # (Manual) 0.4 L Monocytes # (Manual) PT INR APTT Fibrinogen POC ABG pH POC ABG pCO2 46.6 H POC ABG pO2 50 L VBG pH Sodium Potassium Chloride Carbon Dioxide BUN Creatinine Glucose POC Glucose 182 H Lactic Acid Calcium Phosphorus Magnesium Iron Ferritin Total Bilirubin Direct Bilirubin Alkaline Phosphatase Lactate Dehydrogenase Total Creatine Kinase NT-Pro-B Natriuret Pep Total Protein Albumin Triglycerides Vitamin B12 Folate Urine WBC (Auto) Urine Creatinine Urine Total Protein Complement C3 Lymph Enumerat CD4/CD8 Absolute CD3 Count % CD4 Cells Absolute CD4 Count % CD8 Cells HIV-1 RNA PCR copies/ml HIV-1 RNA (PCR) log 03/16/18 03/16/18 03/16/18 05:01 05:01 05:29 WBC RBC Hgb Hct RDW Plt Count Lymph % (Auto) Lymph # Seg Neutrophils % Seg Neuts % (Manual) Lymphocytes % (Manual) Monocytes % (Manual) Seg Neutrophils # Seg Neutrophils # Man Abs Lymphs (Manual) Lymphocytes # (Manual) Monocytes # (Manual) PT INR APTT Fibrinogen POC ABG pH POC ABG pCO2 POC ABG pO2 VBG pH Sodium 148 H Potassium 5.7 H Chloride 112.1 H Carbon Dioxide BUN 41 H Creatinine Glucose 234 H POC Glucose 257 H Lactic Acid Calcium Phosphorus Magnesium Iron Ferritin Total Bilirubin Direct Bilirubin Alkaline Phosphatase Lactate Dehydrogenase Total Creatine Kinase NT-Pro-B Natriuret Pep Total Protein Albumin Triglycerides 212 H Vitamin B12 Folate Urine WBC (Auto) Urine Creatinine Urine Total Protein Complement C3 Lymph Enumerat CD4/CD8 Absolute CD3 Count % CD4 Cells Absolute CD4 Count % CD8 Cells HIV-1 RNA PCR copies/ml HIV-1 RNA (PCR) log 03/16/18 03/16/18 03/16/18 11:30 15:56 17:28 WBC RBC Hgb Hct RDW Plt Count Lymph % (Auto) Lymph # Seg Neutrophils % Seg Neuts % (Manual) Lymphocytes % (Manual) Monocytes % (Manual) Seg Neutrophils # Seg Neutrophils # Man Abs Lymphs (Manual) Lymphocytes # (Manual) Monocytes # (Manual) PT INR APTT Fibrinogen POC ABG pH POC ABG pCO2 POC ABG pO2 VBG pH Sodium Potassium 5.5 H Chloride Carbon Dioxide BUN 39 H Creatinine Glucose 186 H POC Glucose 186 H 153 H Lactic Acid Calcium Phosphorus Magnesium Iron Ferritin Total Bilirubin Direct Bilirubin Alkaline Phosphatase Lactate Dehydrogenase Total Creatine Kinase NT-Pro-B Natriuret Pep Total Protein Albumin Triglycerides Vitamin B12 Folate Urine WBC (Auto) Urine Creatinine Urine Total Protein Complement C3 Lymph Enumerat CD4/CD8 Absolute CD3 Count % CD4 Cells Absolute CD4 Count % CD8 Cells HIV-1 RNA PCR copies/ml HIV-1 RNA (PCR) log 03/16/18 03/17/18 03/17/18 23:48 04:25 04:25 WBC 13.9 H RBC 2.89 L Hgb 8.2 L Hct 27.8 L RDW Plt Count 85 L Lymph % (Auto) Lymph # Seg Neutrophils % Seg Neuts % (Manual) 88.0 H Lymphocytes % (Manual) 4.0 L Monocytes % (Manual) Seg Neutrophils # Seg Neutrophils # Man 12.2 H Abs Lymphs (Manual) Lymphocytes # (Manual) 0.6 L Monocytes # (Manual) PT INR APTT Fibrinogen POC ABG pH POC ABG pCO2 POC ABG pO2 VBG pH Sodium Potassium 5.7 H Chloride 107.5 H Carbon Dioxide BUN 38 H Creatinine Glucose 165 H POC Glucose 131 H Lactic Acid Calcium Phosphorus Magnesium Iron Ferritin Total Bilirubin Direct Bilirubin Alkaline Phosphatase Lactate Dehydrogenase Total Creatine Kinase NT-Pro-B Natriuret Pep Total Protein Albumin Triglycerides Vitamin B12 Folate Urine WBC (Auto) Urine Creatinine Urine Total Protein Complement C3 Lymph Enumerat CD4/CD8 Absolute CD3 Count % CD4 Cells Absolute CD4 Count % CD8 Cells HIV-1 RNA PCR copies/ml HIV-1 RNA (PCR) log 03/17/18 03/17/18 03/17/18 04:25 04:51 05:39 WBC RBC Hgb Hct RDW Plt Count Lymph % (Auto) Lymph # Seg Neutrophils % Seg Neuts % (Manual) Lymphocytes % (Manual) Monocytes % (Manual) Seg Neutrophils # Seg Neutrophils # Man Abs Lymphs (Manual) Lymphocytes # (Manual) Monocytes # (Manual) PT INR APTT Fibrinogen POC ABG pH POC ABG pCO2 45.4 H POC ABG pO2 174 H VBG pH Sodium Potassium Chloride Carbon Dioxide BUN Creatinine Glucose POC Glucose 140 H Lactic Acid Calcium Phosphorus Magnesium Iron Ferritin Total Bilirubin Direct Bilirubin Alkaline Phosphatase Lactate Dehydrogenase 232 H Total Creatine Kinase 33 L NT-Pro-B Natriuret Pep Total Protein Albumin Triglycerides Vitamin B12 Folate Urine WBC (Auto) Urine Creatinine Urine Total Protein Complement C3 Lymph Enumerat CD4/CD8 Absolute CD3 Count % CD4 Cells Absolute CD4 Count % CD8 Cells HIV-1 RNA PCR copies/ml HIV-1 RNA (PCR) log 03/17/18 03/17/18 03/17/18 11:51 14:40 17:40 WBC RBC Hgb Hct RDW Plt Count Lymph % (Auto) Lymph # Seg Neutrophils % Seg Neuts % (Manual) Lymphocytes % (Manual) Monocytes % (Manual) Seg Neutrophils # Seg Neutrophils # Man Abs Lymphs (Manual) Lymphocytes # (Manual) Monocytes # (Manual) PT INR APTT Fibrinogen POC ABG pH POC ABG pCO2 POC ABG pO2 VBG pH Sodium Potassium Chloride Carbon Dioxide BUN 36 H Creatinine Glucose 107 H POC Glucose 122 H 113 H Lactic Acid Calcium Phosphorus Magnesium Iron Ferritin Total Bilirubin Direct Bilirubin Alkaline Phosphatase Lactate Dehydrogenase Total Creatine Kinase NT-Pro-B Natriuret Pep Total Protein Albumin Triglycerides Vitamin B12 Folate Urine WBC (Auto) Urine Creatinine Urine Total Protein Complement C3 Lymph Enumerat CD4/CD8 Absolute CD3 Count % CD4 Cells Absolute CD4 Count % CD8 Cells HIV-1 RNA PCR copies/ml HIV-1 RNA (PCR) log 03/18/18 03/18/18 03/18/18 04:16 04:16 04:48 WBC 14.9 H RBC Hgb 10.8 L Hct 33.3 L RDW Plt Count Lymph % (Auto) Lymph # Seg Neutrophils % Seg Neuts % (Manual) 76.0 H Lymphocytes % (Manual) 5.0 L Monocytes % (Manual) Seg Neutrophils # Seg Neutrophils # Man 11.3 H Abs Lymphs (Manual) Lymphocytes # (Manual) 0.7 L Monocytes # (Manual) PT INR APTT Fibrinogen POC ABG pH POC ABG pCO2 POC ABG pO2 54 L VBG pH Sodium Potassium Chloride Carbon Dioxide BUN 34 H Creatinine Glucose 116 H POC Glucose Lactic Acid Calcium Phosphorus Magnesium Iron Ferritin Total Bilirubin Direct Bilirubin Alkaline Phosphatase Lactate Dehydrogenase Total Creatine Kinase NT-Pro-B Natriuret Pep Total Protein Albumin Triglycerides Vitamin B12 Folate Urine WBC (Auto) Urine Creatinine Urine Total Protein Complement C3 Lymph Enumerat CD4/CD8 Absolute CD3 Count % CD4 Cells Absolute CD4 Count % CD8 Cells HIV-1 RNA PCR copies/ml HIV-1 RNA (PCR) log 03/18/18 03/18/18 03/19/18 05:13 18:40 04:50 WBC RBC Hgb Hct RDW Plt Count Lymph % (Auto) Lymph # Seg Neutrophils % Seg Neuts % (Manual) Lymphocytes % (Manual) Monocytes % (Manual) Seg Neutrophils # Seg Neutrophils # Man Abs Lymphs (Manual) Lymphocytes # (Manual) Monocytes # (Manual) PT INR APTT Fibrinogen POC ABG pH POC ABG pCO2 46.1 H POC ABG pO2 112 H VBG pH Sodium Potassium Chloride Carbon Dioxide BUN Creatinine Glucose POC Glucose 127 H 110 H Lactic Acid Calcium Phosphorus Magnesium Iron Ferritin Total Bilirubin Direct Bilirubin Alkaline Phosphatase Lactate Dehydrogenase Total Creatine Kinase NT-Pro-B Natriuret Pep Total Protein Albumin Triglycerides Vitamin B12 Folate Urine WBC (Auto) Urine Creatinine Urine Total Protein Complement C3 Lymph Enumerat CD4/CD8 Absolute CD3 Count % CD4 Cells Absolute CD4 Count % CD8 Cells HIV-1 RNA PCR copies/ml HIV-1 RNA (PCR) log 03/19/18 03/19/18 03/19/18 05:27 06:00 06:00 WBC 13.0 H RBC 3.43 L Hgb 9.7 L Hct 30.6 L RDW Plt Count Lymph % (Auto) 8.4 L Lymph # 1.1 L Seg Neutrophils % 87.4 H Seg Neuts % (Manual) Lymphocytes % (Manual) Monocytes % (Manual) Seg Neutrophils # 11.4 H Seg Neutrophils # Man Abs Lymphs (Manual) Lymphocytes # (Manual) Monocytes # (Manual) PT INR APTT Fibrinogen POC ABG pH POC ABG pCO2 POC ABG pO2 VBG pH Sodium Potassium Chloride 107.8 H Carbon Dioxide BUN 28 H Creatinine Glucose 220 H POC Glucose 69 L Lactic Acid Calcium 8.1 L Phosphorus Magnesium Iron Ferritin Total Bilirubin Direct Bilirubin Alkaline Phosphatase Lactate Dehydrogenase Total Creatine Kinase NT-Pro-B Natriuret Pep Total Protein Albumin Triglycerides Vitamin B12 Folate Urine WBC (Auto) Urine Creatinine Urine Total Protein Complement C3 Lymph Enumerat CD4/CD8 Absolute CD3 Count % CD4 Cells Absolute CD4 Count % CD8 Cells HIV-1 RNA PCR copies/ml HIV-1 RNA (PCR) log 03/19/18 03/19/18 03/20/18 06:00 17:10 00:01 WBC RBC Hgb Hct RDW Plt Count Lymph % (Auto) Lymph # Seg Neutrophils % Seg Neuts % (Manual) Lymphocytes % (Manual) Monocytes % (Manual) Seg Neutrophils # Seg Neutrophils # Man Abs Lymphs (Manual) Lymphocytes # (Manual) Monocytes # (Manual) PT INR APTT Fibrinogen POC ABG pH POC ABG pCO2 POC ABG pO2 VBG pH Sodium Potassium Chloride Carbon Dioxide BUN Creatinine Glucose POC Glucose 132 H 181 H Lactic Acid Calcium Phosphorus Magnesium Iron Ferritin Total Bilirubin Direct Bilirubin Alkaline Phosphatase Lactate Dehydrogenase Total Creatine Kinase NT-Pro-B Natriuret Pep Total Protein Albumin Triglycerides 177 H Vitamin B12 Folate Urine WBC (Auto) Urine Creatinine Urine Total Protein Complement C3 Lymph Enumerat CD4/CD8 Absolute CD3 Count % CD4 Cells Absolute CD4 Count % CD8 Cells HIV-1 RNA PCR copies/ml HIV-1 RNA (PCR) log 03/20/18 03/20/18 03/20/18 04:00 04:00 04:07 WBC 19.0 H RBC 3.53 L Hgb 10.5 L Hct 31.2 L RDW Plt Count Lymph % (Auto) Lymph # Seg Neutrophils % Seg Neuts % (Manual) 94.0 H Lymphocytes % (Manual) 4.0 L Monocytes % (Manual) Seg Neutrophils # Seg Neutrophils # Man 17.9 H Abs Lymphs (Manual) Lymphocytes # (Manual) 0.8 L Monocytes # (Manual) PT INR APTT Fibrinogen POC ABG pH 7.342 L POC ABG pCO2 48.4 H POC ABG pO2 VBG pH Sodium Potassium Chloride 107.1 H Carbon Dioxide BUN 30 H Creatinine Glucose 143 H POC Glucose Lactic Acid Calcium 8.1 L Phosphorus Magnesium Iron Ferritin Total Bilirubin Direct Bilirubin Alkaline Phosphatase Lactate Dehydrogenase Total Creatine Kinase NT-Pro-B Natriuret Pep Total Protein Albumin Triglycerides Vitamin B12 Folate Urine WBC (Auto) Urine Creatinine Urine Total Protein Complement C3 Lymph Enumerat CD4/CD8 Absolute CD3 Count % CD4 Cells Absolute CD4 Count % CD8 Cells HIV-1 RNA PCR copies/ml HIV-1 RNA (PCR) log
--- NOTE | 2018-03-20 12:44 | Progress Note ---
Assessment and Plan Cultures: 03/09/2018 blood culture: Hemophilus hemolyticus in both sets 03/09/2018 influenza rapid: Negative 03/10/2018 urine culture: Negative 03/12/2018 Resp culture: usual resp thomas. 03/12/2018 Crypto Ag serum: negative. 03/13/2018 blood culture BAL 03/18/2018 +MRSA A/P: 33/M with no medical history, admitted with: 1) Septic shock: resolved; etio ? H. flu bacteremia. New low grade fever, not better. S/P BAL 03/18/2018 +MRSA 2) Acute respiratory failure: now on vent. Initial CXR not suggestive of pneumonia, low suspicion for PJP pneumonia especially since patient reported a good recent CD4 count. Repeat CXRs are probably more suggestive of fluid overload / pulmonary edema which has steadily been improving with diuretics. Anyways, patient on Atovaquone which will cover PJP. Avoiding Bactrim due to thrombocytopenia. 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 Initial CXR not suggestive of pneumonia. Repeat blood cultures neg. CT chest showed possible LLL infiltrate/atelectasis/mucous plugging 4) HIV positive: Apparently he has been HIV positive, used to be on meds - Genvoya but stopped taking it 6 months ago, states his last CD4 count was 400+. 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 resolved [id number] normal. No schistocytes. FELICIA neg, ANCA neg. C3 low (unclear significance), C4 normal. 6) Cardiomyopathy: low EF. etiology unclear. ?HIV related. Cardiology following. Recs: - continue vancomycin to cover empirically for MRSA pneumonia D2 - continue mepron (atovaquone) - f/u HIV-genotype - monitor fever Dr Vasquez will cover on Wednesday MD [facility] C: [phone] O: [phone] F: [phone] Subjective Date of service: 03/20/18 Principal diagnosis: low plt Interval history: Patient remains on the vent FiO2 55%,p 10, on sedation x 3. Tmax 100.1. Objective - Exam Narrative Exam: Constitutional: sedated intubated, on vent. Head, Ears, Nose: Normocephalic, atraumatic. External ears, nose normal Eyes: Conjunctivae/corneas clear. No icterus. No ptosis. Neck: Supple, no meningeal signs Oral: intubated, +ETT with yellow thin secretions, +NGT Cardiovascular: RRR Respiratory: scattered rhonchi GI: bowel sounds normal. No peritoneal signs Musculoskeletal: No pedal edema, no cyanosis. Skin: No rash or abscess Hem/Lymphatic: No palpable cervical or supraclavicular nodes. No lymphangitis Psych: sedated Neurological: sedated, intubated, exam limited Right PICC - Constitutional Vitals: Vital Signs Temp Pulse Resp BP Pulse Ox 100.1 F H 108 H 21 96/49 96 03/20/18 12:00 03/20/18 12:00 03/20/18 12:00 03/20/18 12:00 03/20/18 12:00 Temperature -Last 24 Hours Temperature 100.1 F Temperature 100.1 F Temperature 98.8 F Temperature 99.0 F Temperature 97.6 F - Labs CBC & Chem 7: 03/20/18 04:00 03/20/18 04:00 Labs: Abnormal lab results 03/19/18 03/20/18 03/20/18 Range/Units 17:10 00:01 04:00 WBC 19.0 H (4.5-11.0) K/mm3 RBC 3.53 L (3.65-5.03) M/mm3 Hgb 10.5 L (11.8-15.2) gm/dl Hct 31.2 L (35.5-45.6) % Seg Neuts % (Manual) 94.0 H (40.0-70.0) % Lymphocytes % (Manual) 4.0 L (13.4-35.0) % Seg Neutrophils # Man 17.9 H (1.8-7.7) K/mm3 Lymphocytes # (Manual) 0.8 L (1.2-5.4) K/mm3 POC ABG pH (7.35-7.45) POC ABG pCO2 (35-45) Chloride (98-107) mmol/L BUN (9-20) mg/dL Glucose (75-100) mg/dL POC Glucose 132 H 181 H (70-105) Calcium (8.4-10.2) mg/dL 03/20/18 03/20/18 03/20/18 Range/Units 04:00 04:07 11:31 WBC (4.5-11.0) K/mm3 RBC (3.65-5.03) M/mm3 Hgb (11.8-15.2) gm/dl Hct (35.5-45.6) % Seg Neuts % (Manual) (40.0-70.0) % Lymphocytes % (Manual) (13.4-35.0) % Seg Neutrophils # Man (1.8-7.7) K/mm3 Lymphocytes # (Manual) (1.2-5.4) K/mm3 POC ABG pH 7.342 L (7.35-7.45) POC ABG pCO2 48.4 H (35-45) Chloride 107.1 H (98-107) mmol/L BUN 30 H (9-20) mg/dL Glucose 143 H (75-100) mg/dL POC Glucose 136 H (70-105) Calcium 8.1 L (8.4-10.2) mg/dL
[2018-03-20] MEDS: SODIUM CHLORIDE FLUSH SYRINGE 10 ML IV SCH ×2 (14:07→21:37)
[2018-03-20] MEDS: VANCOMYCIN 1,250 MG in NACL 0.9% 250ML 250 ML IV SCH (20:39)
[2018-03-20] MEDS: MIDAZOLAM 100 MG in NACL 0.9% 80 ML IV SCH (21:36)
[2018-03-21] MEDS: HumaLOG SUB-Q SCH ×4 (00:02→18:10)
[2018-03-21] MEDS: VANCOMYCIN 1,250 MG in NACL 0.9% 250ML 250 ML IV SCH ×3 (04:57→20:26)
[2018-03-21] MEDS: fentaNYL DRIP Premix 2,000 MCG/100 ML BAG IV SCH ×2 (04:58→18:07)
[2018-03-21 05:41] LABS: Basophils # (Auto) 0.1 K/mm3 (0.0-0.1); Basophils % (Auto) 0.5 % (0.0-1.8); Eosinophils # (Auto) 0.1 K/mm3 (0.0-0.4); Eosinophils % (Auto) 1.4 % (0.0-4.3); Hematocrit 21.4 % (35.5-45.6); Hemoglobin 7.2 gm/dl (11.8-15.2); Lymphocytes % (Auto) 8.9 % (13.4-35.0); Mean Corpuscular HGB Conc 34 % (32-34); Mean Corpuscular Volume 90 fl (84-94); Monocytes # (Auto) 0.8 K/mm3 (0.0-0.8); Monocytes % (Auto) 7.1 % (0.0-7.3); Platelet Count 171 K/mm3 (140-440); Red Blood Count 2.37 M/mm3 (3.65-5.03); Red Cell Distribution Width 14.3 % (13.2-15.2)
[2018-03-21 05:49] LABS: BUN/Creatinine Ratio 42; Blood Urea Nitrogen 21 mg/dL (9-20); Hemolysis Index 31
[2018-03-21] MEDS: DIPRIVAN 10 MG/ML 1,000 MG/100 ML BOTTLE IV SCH ×5 (06:39→23:18)
--- NOTE | 2018-03-21 07:44 | Hem/Onc Progress Note ---
Assessment and Plan 1. Thrombocytopenia. I reviewed the peripheral smear. I spoke to the ear mold laboratory technician. The laboratory report mentioned no schistocytes. When I reviewed the smear it did not have any schistocytes. Creatinine is elevated. The patient is short of breath. 2. At this time, differential includes some idiopathic thrombocytopenic purpura. Other differentials include immunosuppression related or medication or infection related. The patient's PT, PTT is elevated, but fibrinogen is not low. At admission, chest x-ray was clear and now it has worsened. There is a clinical suspicion of this being infection or disseminated intravascular coagulation or acute respiratory distress syndrome. 3. Renal impairment. 4. Decreased urine output. 5. h/o Shortness of breath. 6. Human immunodeficiency virus, pt was on treatment. 7. discussed with IDT. 8. steroid trial. 9. BNP was elevated. 10. I ordered [id number]. 11. Abnormal liver function tests. 12. Being treated for Haemophilus influenzae. 13. CD4 count 400. I will follow the patient during inpatient stay. 03/11/2018 - d/w dr garrison - low EF pt is on dexa 40 daily s/p plt transfusion no active bleeding 03/12/2018 s/p plt transfusion on dexa intubated d/w lab reg [id number] HIV d/w dr ojeda 03/15 - low folate plt better once plt >100 - will look into altering steroids as per nurse - good urine OP 03/16/2017 - pt plt are better - will follow off pressors 03/17/2018 - hb low as s iron was low - iv iron trial plt 85 - ct dexa for now - once >100 will look into changing ADAMTS - report not seen 03/18/2018 - plt 140s - change dexa to prednisone hb better good urine OP still on vent' 03/19/2018 on vent plt stable - on oral prednisone 03/21/2018 - hb low - will repeat same plt stable - pt on prednsione - ct same for now - Patient Problems (1) Thrombocytopenia Current Visit: Yes Status: Acute Subjective Date of service: 03/21/18 Principal diagnosis: ITP Interval history: pt on vent - d/w RN and mother Objective - Exam Narrative Exam: on vent - Constitutional Vitals: Last Vital Signs Temp 97.1 F L 03/21/18 03:48 Pulse 91 H 03/21/18 06:00 Resp 22 03/21/18 06:00 BP 115/61 03/21/18 06:00 Pulse Ox 100 03/21/18 06:00 General appearance: other (sedated) Performance status: 4-completely disabled - EENT ENT: other (intubated) Lymph node exam: negative cervical, negative supraclavicular - Respiratory Respiratory effort: Positive: normal Respiratory: bilateral: diminished - Cardiovascular Heart Sounds: Present: S1 & S2 Extremities: No edema - Gastrointestinal General gastrointestinal: Present: soft, non-tender Rectal Exam: deferred - Genitourinary Male genitourinary: Present: deferred - Musculoskeletal Musculoskeletal: other (on sedation) - Labs Lab Results: Laboratory Results - last 24 hr 03/20/18 03/20/18 03/20/18 11:31 17:55 23:50 WBC RBC Hgb Hct MCV MCH MCHC RDW Plt Count Lymph % (Auto) Glenn % (Auto) Eos % (Auto) Baso % (Auto) Lymph # Glenn # Eos # Baso # Seg Neutrophils % Seg Neutrophils # POC ABG pH POC ABG pCO2 POC ABG pO2 POC ABG HCO3 POC ABG Total CO2 POC ABG O2 Sat POC ABG Base Excess FiO2 Sodium Potassium Chloride Carbon Dioxide Anion Gap BUN Creatinine Estimated GFR BUN/Creatinine Ratio Glucose POC Glucose 136 H 162 H 148 H Calcium Phosphorus Magnesium 03/21/18 03/21/18 03/21/18 04:41 05:15 05:15 WBC 10.9 RBC 2.37 L Hgb 7.2 L D Hct 21.4 L D MCV 90 MCH 31 MCHC 34 RDW 14.3 Plt Count 171 Lymph % (Auto) 8.9 L Glenn % (Auto) 7.1 Eos % (Auto) 1.4 Baso % (Auto) 0.5 Lymph # 1.0 L Glenn # 0.8 Eos # 0.1 Baso # 0.1 Seg Neutrophils % 82.1 H Seg Neutrophils # 8.9 H POC ABG pH 7.344 L POC ABG pCO2 52.8 H POC ABG pO2 140 H POC ABG HCO3 28.8 POC ABG Total CO2 30 POC ABG O2 Sat 99 POC ABG Base Excess 3 FiO2 55 Sodium 145 Potassium 3.0 L D Chloride 117.5 H Carbon Dioxide 21 L Anion Gap 10 BUN 21 H Creatinine 0.5 L Estimated GFR > 60 BUN/Creatinine Ratio 42 Glucose 118 H POC Glucose Calcium 6.0 L D Phosphorus 1.90 L D Magnesium 03/21/18 05:15 WBC RBC Hgb Hct MCV MCH MCHC RDW Plt Count Lymph % (Auto) Glenn % (Auto) Eos % (Auto) Baso % (Auto) Lymph # Glenn # Eos # Baso # Seg Neutrophils % Seg Neutrophils # POC ABG pH POC ABG pCO2 POC ABG pO2 POC ABG HCO3 POC ABG Total CO2 POC ABG O2 Sat POC ABG Base Excess FiO2 Sodium Potassium Chloride Carbon Dioxide Anion Gap BUN Creatinine Estimated GFR BUN/Creatinine Ratio Glucose POC Glucose Calcium Phosphorus Magnesium 1.60 L Medications & Allergies - Medications Allergies/Adverse Reactions: Allergies clindamycin Allergy (Verified 03/09/18 06:43) Swelling Home Medications: Home Medications Medication Instructions Recorded Confirmed Last Taken Type No Known Home Medications [No 03/09/18 03/09/18 Unknown History Reported Home Medications] Active Medications: Generic Name Dose Route Start Last Admin Trade Name Freq PRN Reason Stop Dose Admin Lipase/Protease/Amylase 1 each 03/14/18 16:[address] 10,500 Unit FEEDTUBE PRN PRN For Clogged Feeding Tube Atovaquone 1,500 mg 03/11/18 20:00 03/20/18 10:04 Mepron PO 1,500 mg QDAY LIU Administration Clonazepam 1 mg 03/18/18 11:00 03/21/18 05:11 Klonopin PO 1 mg Q8HR LIU Administration Dextrose 50 ml 03/09/18 16:15 03/19/18 06:17 D50w (25gm) Syringe IV 50 ml PRN PRN Administration HYPOGLYCEMIA Fentanyl 50 mcg 03/14/18 09:44 03/18/18 02:38 Sublimaze IV 50 mcg Q2H PRN Administration Pain , Severe (7-10) Folic Acid 1 mg 03/15/18 10:00 03/20/18 10:08 Folvite PO 1 mg QDAY LIU Administration Hydrophilic Ointment 1 applic 03/12/18 07:47 03/13/18 11:34 Vaseline Lip Therapy TP 1 applic Q2HR PRN Administration Dry Lips Norepinephrine 4 mg in 250 mls @ 7.5 mls/hr 03/09/18 23:45 03/12/18 13:57 Levophed Drip 4 Mg/Ns 250 Ml IV 0 mcg/min TITR LIU 0 mls/hr Titration Protocol 2 MCG/MIN Vasopressin 20 unit/ Sodium 101 mls @ 9.09 mls/hr 03/10/18 11:00 03/14/18 10:30 Chloride IV 0 units/min TITR LIU 0 mls/hr Titration Protocol 0.03 UNITS/MIN Propofol 1,000 mg in 100 mls @ 2.721 mls/hr 03/12/18 08:00 03/21/18 06:39 Diprivan 10 Mg/Ml IV 30 mcg/kg/min TITR LIU 16.326 mls/hr Administration Protocol 5 MCG/KG/MIN Fentanyl Citrate 2,000 mcg in 100 mls @ 4.535 mls/hr 03/14/18 10:00 03/21/18 04:58 Fentanyl Drip Premix IV 3 mcg/kg/hr TITR LIU 13.605 mls/hr Administration Protocol 1 MCG/KG/HR Midazolam HCl 100 mg/ Sodium 100 mls @ 2 mls/hr 03/15/18 19:00 03/20/18 21:36 Chloride IV 4 mg/hr TITR LIU 4 mls/hr Administration Protocol 2 MG/HR Dopamine HCl/Dextrose 800 mg in 250 mls @ 2.936 mls/hr 03/18/18 01:00 Intropin Drip 800 Mg/D5w 250 Ml IV TITR LIU Protocol 2 MCG/KG/MIN Vancomycin HCl 1,250 mg/ 275 mls @ 166.667 mls/hr 03/20/18 20:00 03/21/18 04:57 Sodium Chloride IV 166.667 mls/hr Q8H LIU Administration Insulin Human Lispro 0 unit 03/14/18 12:00 03/21/18 05:26 Humalog SUB-Q 3 unit Q6HR [facility] Administration Protocol Lansoprazole 30 mg 03/14/18 10:00 03/20/18 10:05 Prevacid Solutab FEEDTUBE 30 mg QDAY LIU Administration Lorazepam 2 mg 03/15/18 17:14 03/20/18 10:03 Ativan IV 2 mg Q3H PRN Administration Agitation Midazolam HCl 2 mg 03/15/18 18:03 03/17/18 10:31 Versed IV 2 mg Q10MIN PRN Administration Sedation Morphine Sulfate 2 mg 03/14/18 05:25 03/14/18 07:49 Morphine IV 2 mg Q4H PRN Administration Pain, Moderate (4-6) Multi-Ingred Cream/Lotion/Oil/Oint 1 applic 03/12/18 07:47 Artificial Tears Ophth Oint OU Q4HR PRN Dry Eye(s) Ondansetron HCl 4 mg 03/14/18 08:00 Zofran IV Q8H PRN Nausea And Vomiting Prednisone 50 mg 03/18/18 10:00 03/20/18 10:07 Deltasone PO 50 mg QDAY LIU Administration Quetiapine Fumarate 50 mg 03/18/18 11:00 03/20/18 21:37 Seroquel PO 50 mg BID LIU Administration Senna/Docusate Sodium 2 tab 03/16/18 11:00 03/20/18 21:38 Senokot S PO Not Given BID LIU Simple Syrup 15 ml 03/14/18 16:04 Simple Syrup FEEDTUBE PRN PRN Hypoglycemia Simple Syrup 30 ml 03/14/18 16:04 Simple Syrup FEEDTUBE PRN PRN Hypoglycemia Sodium Chloride 10 ml 03/09/18 22:00 03/20/18 21:37 Sodium Chloride Flush Syringe 10 Ml IV 10 ml BID LIU Administration Sodium Chloride 10 ml 03/09/18 10:41 Sodium Chloride Flush Syringe 10 Ml IV PRN PRN LINE FLUSH
[2018-03-21 08:38] LABS: Hematocrit 28.1 % (35.5-45.6)
[2018-03-21] MEDS ORDERED: POTASSIUM CHLORIDE FEEDTUBE ONE (09:00)
[2018-03-21] MEDS ORDERED: KPHOS 40 MMOL in NACL 0.9% 500 ML 500 ML IV ONE (09:00)
[2018-03-21] MEDS ORDERED: MAGNESIUM SULFATE 4GM/100ML 4 GM/100 ML BAG IV ONE (09:00)
[2018-03-21] MEDS: PREVACID SOLUTAB FEEDTUBE SCH (10:32)
[2018-03-21] MEDS: DELTASONE PO SCH (10:32)
[2018-03-21] MEDS: FOLVITE PO SCH (10:32)
[2018-03-21] MEDS: MEPRON PO SCH (10:33)
[2018-03-21] MEDS: SODIUM CHLORIDE FLUSH SYRINGE 10 ML IV SCH ×2 (10:46→23:45)
--- NOTE | 2018-03-21 11:10 | Progress Note ---
Assessment and Plan Cultures: 03/09/2018 blood culture: Hemophilus hemolyticus in both sets 03/09/2018 influenza rapid: Negative 03/10/2018 urine culture: Negative 03/12/2018 Resp culture: usual resp thomas. 03/12/2018 Crypto Ag serum: negative. 03/13/2018 blood culture BAL 03/18/2018 +MRSA A/P: 33/M with no medical history, admitted with: 1) Septic shock: resolved; etio ? H. flu bacteremia. New low grade fever, improving. S/P BAL 03/18/2018 +MRSA. Started on IV Vancomycin. 2) Acute respiratory failure: now on vent. Initial CXR not suggestive of pneumonia, low suspicion for PJP pneumonia especially since patient reported a good recent CD4 count. Repeat CXRs are probably more suggestive of fluid overload / pulmonary edema which has steadily been improving with diuretics. Continue PCP prophylaxis. 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 Initial CXR not suggestive of pneumonia. Repeat blood cultures neg. CT chest showed possible LLL infiltrate/atelectasis/mucous plugging. Completed 10 days of Cefepime. 4) HIV positive: Apparently he has been HIV positive, used to be on meds - Genvoya but stopped taking it 6 months ago, states his last CD4 count was 400+. - SR1=513 / VL 51,300 on 03/10/2018. Now that platelet issues and renal issues resolved, can start bactrim and d/c Atovaquone. 5) Acute renal failure: resolved 6) Severe thrombocytopenia, coagulopathy: Presumed ITP. resolved [id number] normal. FELICIA neg, ANCA neg. C3 low (unclear significance), C4 normal. 6) Cardiomyopathy: low EF. etiology unclear. ?HIV related. Cardiology following. Recs: - continue IV vancomycin to cover empirically for MRSA pneumonia D3 - discontinued mepron - started PO Bactrim DS 1 tab daily for prophylaxis D/W Pharmacy. Kaylyn Vasquez MD [facility] C: [phone] O: [phone] F: [phone] Subjective Date of service: 03/21/18 Principal diagnosis: ITP Interval history: No fever. Remains on the vent. Sedated. No diarrhea. No rash. Objective - Exam Narrative Exam: Physical Exam: Constitutional: sedated, intubated, on vent. Head, Ears, Nose: Normocephalic, atraumatic. External ears, nose normal Eyes: Conjunctivae/corneas clear. No icterus. No ptosis. Neck: Supple, no meningeal signs Oral: intubated Cardiovascular: S1, S2 normal, no murmur Respiratory: Good air entry, clear to auscultation bilaterally GI: bowel sounds normal. No peritoneal signs Musculoskeletal: No pedal edema, no cyanosis. Skin: No rash or abscess Hem/Lymphatic: No palpable cervical or supraclavicular nodes. No lymphangitis Psych: sedated, no agitation Neurological: sedated, intubated, exam is limited - Constitutional Vitals: Vital Signs Temp Pulse Resp BP Pulse Ox 97.6 F 74 24 91/46 99 03/21/18 08:00 03/21/18 09:15 03/21/18 09:15 03/21/18 09:15 03/21/18 09:15 Temperature -Last 24 Hours Temperature 97.6 F Temperature 97.1 F Temperature 98.0 F Temperature 100.9 F Temperature 99.8 F Temperature 100.1 F - Labs CBC & Chem 7: 03/21/18 08:25 03/21/18 05:15 Labs: Abnormal lab results 03/20/18 03/20/18 03/20/18 Range/Units 11:31 17:55 23:50 RBC (3.65-5.03) M/mm3 Hgb (11.8-15.2) gm/dl Hct (35.5-45.6) % Lymph % (Auto) (13.4-35.0) % Lymph # (1.2-5.4) K/mm3 Seg Neutrophils % (40.0-70.0) % Seg Neutrophils # (1.8-7.7) K/mm3 POC ABG pH (7.35-7.45) POC ABG pCO2 (35-45) POC ABG pO2 (80-105) Potassium (3.6-5.0) mmol/L Chloride (98-107) mmol/L Carbon Dioxide (22-30) mmol/L BUN (9-20) mg/dL Creatinine (0.8-1.5) mg/dL Glucose (75-100) mg/dL POC Glucose 136 H 162 H 148 H (70-105) Calcium (8.4-10.2) mg/dL Phosphorus (2.5-4.5) mg/dL Magnesium (1.7-2.3) mg/dL 03/21/18 03/21/18 03/21/18 Range/Units 04:41 05:15 05:15 RBC 2.37 L (3.65-5.03) M/mm3 Hgb 7.2 L D (11.8-15.2) gm/dl Hct 21.4 L D (35.5-45.6) % Lymph % (Auto) 8.9 L (13.4-35.0) % Lymph # 1.0 L (1.2-5.4) K/mm3 Seg Neutrophils % 82.1 H (40.0-70.0) % Seg Neutrophils # 8.9 H (1.8-7.7) K/mm3 POC ABG pH 7.344 L (7.35-7.45) POC ABG pCO2 52.8 H (35-45) POC ABG pO2 140 H (80-105) Potassium 3.0 L D (3.6-5.0) mmol/L Chloride 117.5 H (98-107) mmol/L Carbon Dioxide 21 L (22-30) mmol/L BUN 21 H (9-20) mg/dL Creatinine 0.5 L (0.8-1.5) mg/dL Glucose 118 H (75-100) mg/dL POC Glucose (70-105) Calcium 6.0 L D (8.4-10.2) mg/dL Phosphorus 1.90 L D (2.5-4.5) mg/dL Magnesium (1.7-2.3) mg/dL 03/21/18 03/21/18 03/21/18 Range/Units 05:15 05:23 08:25 RBC (3.65-5.03) M/mm3 Hgb 9.0 L (11.8-15.2) gm/dl Hct 28.1 L D (35.5-45.6) % Lymph % (Auto) (13.4-35.0) % Lymph # (1.2-5.4) K/mm3 Seg Neutrophils % (40.0-70.0) % Seg Neutrophils # (1.8-7.7) K/mm3 POC ABG pH (7.35-7.45) POC ABG pCO2 (35-45) POC ABG pO2 (80-105) Potassium (3.6-5.0) mmol/L Chloride (98-107) mmol/L Carbon Dioxide (22-30) mmol/L BUN (9-20) mg/dL Creatinine (0.8-1.5) mg/dL Glucose (75-100) mg/dL POC Glucose 159 H (70-105) Calcium (8.4-10.2) mg/dL Phosphorus (2.5-4.5) mg/dL Magnesium 1.60 L (1.7-2.3) mg/dL
--- NOTE | 2018-03-21 12:17 | Progress Note ---
Assessment and Plan 33 y/o male with thrombocytopenia, renal failure, and hypotension. 1. Mother now knows all diagnosis. 2. Monitor fluid balance given history of systolic heart failure 3. abx therapy per ID, appreciate their help 4. PT consult 5. Wean PEEP on Vent 6. ABG after PEEP dropped and then may need to consider PSV trials but must be off sedation. 7. If patient cannot tolerate PSV trials of sedation, may have to extubate and have bipap ready/standby CCT 31 minutes Subjective Date of service: 03/21/18 Principal diagnosis: ITP Interval history: No acute events. Still sedated and intubated. REviewed sedation list on rounds and decreased some of the continuous infusion therapy. Mother at bedside and now she knows patient's full medical history. Including immune status. Objective Vital Signs - 12hr 03/21/18 03/21/18 03/21/18 00:20 00:30 01:00 Temperature Pulse Rate 80 79 78 Pulse Rate [ From Monitor] Respiratory 19 14 Rate Respiratory Rate [bodyaches ] Blood Pressure 91/51 93/51 96/47 O2 Sat by Pulse 100 100 100 Oximetry 03/21/18 03/21/18 03/21/18 01:30 02:00 02:30 Temperature Pulse Rate 74 90 78 Pulse Rate [ From Monitor] Respiratory 21 19 15 Rate Respiratory Rate [bodyaches ] Blood Pressure 95/47 96/49 97/52 O2 Sat by Pulse 100 100 100 Oximetry 03/21/18 03/21/18 03/21/18 03:00 03:30 03:48 Temperature 97.1 F L Pulse Rate 76 73 Pulse Rate [ From Monitor] Respiratory 23 16 Rate Respiratory Rate [bodyaches ] Blood Pressure 90/49 93/49 O2 Sat by Pulse 100 99 Oximetry 03/21/18 03/21/18 03/21/18 04:00 04:30 05:00 Temperature Pulse Rate 77 75 72 Pulse Rate [ From Monitor] Respiratory 18 21 21 Rate Respiratory Rate [bodyaches ] Blood Pressure 93/48 98/51 94/48 O2 Sat by Pulse 99 100 100 Oximetry 03/21/18 03/21/18 03/21/18 05:15 05:30 06:00 Temperature Pulse Rate 90 90 91 H Pulse Rate [ From Monitor] Respiratory 21 22 Rate Respiratory Rate [bodyaches ] Blood Pressure 115/61 114/69 115/61 O2 Sat by Pulse 99 100 100 Oximetry 03/21/18 03/21/18 03/21/18 06:15 06:30 06:45 Temperature Pulse Rate 75 71 74 Pulse Rate [ From Monitor] Respiratory 25 H 24 24 Rate Respiratory Rate [bodyaches ] Blood Pressure 122/62 110/56 109/55 O2 Sat by Pulse 97 97 96 Oximetry 03/21/18 03/21/18 03/21/18 07:00 07:15 07:30 Temperature Pulse Rate 75 80 80 Pulse Rate [ From Monitor] Respiratory 24 24 24 Rate Respiratory Rate [bodyaches ] Blood Pressure 102/52 97/50 92/46 O2 Sat by Pulse 96 97 97 Oximetry 03/21/18 03/21/18 03/21/18 07:45 08:00 08:15 Temperature 97.6 F Pulse Rate 75 72 71 Pulse Rate [ 75 From Monitor] Respiratory 24 24 24 Rate Respiratory Rate [bodyaches ] Blood Pressure 87/45 86/44 94/47 O2 Sat by Pulse 98 98 99 Oximetry 03/21/18 03/21/18 03/21/18 08:30 08:45 09:00 Temperature Pulse Rate 74 72 73 Pulse Rate [ From Monitor] Respiratory 24 24 24 Rate Respiratory Rate [bodyaches ] Blood Pressure 90/47 90/47 90/45 O2 Sat by Pulse 99 99 99 Oximetry 03/21/18 03/21/18 03/21/18 09:15 09:30 09:45 Temperature Pulse Rate 74 75 73 Pulse Rate [ From Monitor] Respiratory 24 24 24 Rate Respiratory Rate [bodyaches ] Blood Pressure 91/46 91/49 93/46 O2 Sat by Pulse 99 99 98 Oximetry 03/21/18 03/21/18 03/21/18 10:00 10:15 10:30 Temperature Pulse Rate 72 77 73 Pulse Rate [ From Monitor] Respiratory 24 24 24 Rate Respiratory 24 Rate [bodyaches ] Blood Pressure 91/54 97/51 88/44 O2 Sat by Pulse 98 99 98 Oximetry 03/21/18 03/21/18 03/21/18 10:45 11:00 11:15 Temperature Pulse Rate 72 75 82 Pulse Rate [ From Monitor] Respiratory 24 24 24 Rate Respiratory Rate [bodyaches ] Blood Pressure 91/44 97/49 103/55 O2 Sat by Pulse 99 99 100 Oximetry Constitutional: no acute distress, other (on vent [id number]%) Eyes: non-icteric ENT: oropharynx dry, other (orally intubated and sedated) Neck: supple Effort: mildly labored Ascultation: Bilateral: clear, diminished breath sounds, rales (OCCASIONAL), rhonchi Percussion: Bilateral: not dull Cardiovascular: regular rate and rhythm, other (sinus tach) Gastrointestinal: normoactive bowel sounds, non-tender Integumentary: normal Extremities: no cyanosis, no edema, pink and warm Neurologic: unable to assess, other (RA SS -1) CBC and BMP: 03/21/18 08:25 03/21/18 05:15 ABG, PT/INR, D-dimer: ABG POC ABG pH 7.423 (7.35-7.45) 03/21/18 10:34 POC ABG pCO2 42.4 (35-45) 03/21/18 10:34 POC ABG pO2 89 (80-105) 03/21/18 10:34 POC ABG HCO3 27.6 03/21/18 10:34 POC ABG Total CO2 29 03/21/18 10:34 POC ABG O2 Sat 97 03/21/18 10:34 PT/INR, D-dimer PT 17.2 Sec. (12.2-14.9) H 03/10/18 18:15 INR 1.36 (0.87-1.13) H 03/10/18 18:15 Abnormal lab findings: Abnormal Labs 03/09/18 03/09/18 03/09/18 07:00 07:00 07:00 WBC RBC Hgb Hct RDW 15.5 H Plt Count 25 L Lymph % (Auto) Lymph # Seg Neutrophils % Seg Neuts % (Manual) 90.0 H Lymphocytes % (Manual) 5.0 L Monocytes % (Manual) Seg Neutrophils # Seg Neutrophils # Man Abs Lymphs (Manual) Lymphocytes # (Manual) 0.4 L Monocytes # (Manual) PT 22.9 H INR 1.98 H APTT Fibrinogen POC ABG pH POC ABG pCO2 POC ABG pO2 VBG pH Sodium 135 L Potassium Chloride 90.8 L Carbon Dioxide 17 L BUN 45 H Creatinine 5.8 H Glucose 72 L POC Glucose Lactic Acid Calcium 7.6 L Phosphorus Magnesium Iron Ferritin Total Bilirubin Direct Bilirubin Alkaline Phosphatase 154 H Lactate Dehydrogenase Total Creatine Kinase NT-Pro-B Natriuret Pep Total Protein Albumin 3.6 L Triglycerides Vitamin B12 Folate Urine WBC (Auto) Urine Creatinine Urine Total Protein Complement C3 Lymph Enumerat CD4/CD8 Absolute CD3 Count % CD4 Cells Absolute CD4 Count % CD8 Cells HIV-1 RNA PCR copies/ml HIV-1 RNA (PCR) log 03/09/18 03/09/18 03/09/18 07:00 07:00 07:00 WBC RBC Hgb Hct RDW Plt Count Lymph % (Auto) Lymph # Seg Neutrophils % Seg Neuts % (Manual) Lymphocytes % (Manual) Monocytes % (Manual) Seg Neutrophils # Seg Neutrophils # Man Abs Lymphs (Manual) Lymphocytes # (Manual) Monocytes # (Manual) PT INR APTT Fibrinogen POC ABG pH POC ABG pCO2 POC ABG pO2 VBG pH 7.297 L Sodium Potassium Chloride Carbon Dioxide BUN Creatinine Glucose POC Glucose Lactic Acid 6.80 H* Calcium Phosphorus 5.40 H Magnesium 1.20 L Iron Ferritin Total Bilirubin Direct Bilirubin Alkaline Phosphatase Lactate Dehydrogenase Total Creatine Kinase 228 H NT-Pro-B Natriuret Pep Total Protein Albumin Triglycerides Vitamin B12 Folate Urine WBC (Auto) Urine Creatinine Urine Total Protein Complement C3 Lymph Enumerat CD4/CD8 Absolute CD3 Count % CD4 Cells Absolute CD4 Count % CD8 Cells HIV-1 RNA PCR copies/ml HIV-1 RNA (PCR) log 03/09/18 03/09/18 03/09/18 09:22 12:36 14:39 WBC RBC Hgb Hct RDW Plt Count Lymph % (Auto) Lymph # Seg Neutrophils % Seg Neuts % (Manual) Lymphocytes % (Manual) Monocytes % (Manual) Seg Neutrophils # Seg Neutrophils # Man Abs Lymphs (Manual) Lymphocytes # (Manual) Monocytes # (Manual) PT INR APTT Fibrinogen POC ABG pH POC ABG pCO2 POC ABG pO2 VBG pH Sodium Potassium Chloride Carbon Dioxide BUN Creatinine Glucose POC Glucose Lactic Acid 5.90 H* 8.30 H* Calcium Phosphorus Magnesium Iron Ferritin Total Bilirubin Direct Bilirubin Alkaline Phosphatase Lactate Dehydrogenase Total Creatine Kinase NT-Pro-B Natriuret Pep Total Protein Albumin Triglycerides Vitamin B12 Folate Urine WBC (Auto) 86.0 H Urine Creatinine Urine Total Protein Complement C3 Lymph Enumerat CD4/CD8 Absolute CD3 Count % CD4 Cells Absolute CD4 Count % CD8 Cells HIV-1 RNA PCR copies/ml HIV-1 RNA (PCR) log 03/09/18 03/09/18 03/09/18 14:39 14:39 15:12 WBC RBC Hgb Hct RDW Plt Count Lymph % (Auto) Lymph # Seg Neutrophils % Seg Neuts % (Manual) Lymphocytes % (Manual) Monocytes % (Manual) Seg Neutrophils # Seg Neutrophils # Man Abs Lymphs (Manual) Lymphocytes # (Manual) Monocytes # (Manual) PT INR APTT Fibrinogen POC ABG pH POC ABG pCO2 POC ABG pO2 VBG pH Sodium Potassium Chloride Carbon Dioxide BUN Creatinine Glucose POC Glucose Lactic Acid 5.90 H* Calcium Phosphorus Magnesium Iron Ferritin Total Bilirubin Direct Bilirubin Alkaline Phosphatase Lactate Dehydrogenase Total Creatine Kinase NT-Pro-B Natriuret Pep Total Protein Albumin Triglycerides Vitamin B12 Folate Urine WBC (Auto) Urine Creatinine 217.1 H 210.7 H Urine Total Protein 820 H Complement C3 Lymph Enumerat CD4/CD8 Absolute CD3 Count % CD4 Cells Absolute CD4 Count % CD8 Cells HIV-1 RNA PCR copies/ml HIV-1 RNA (PCR) log 03/09/18 03/09/18 03/09/18 15:53 18:20 20:39 WBC RBC Hgb Hct RDW Plt Count Lymph % (Auto) Lymph # Seg Neutrophils % Seg Neuts % (Manual) Lymphocytes % (Manual) Monocytes % (Manual) Seg Neutrophils # Seg Neutrophils # Man Abs Lymphs (Manual) Lymphocytes # (Manual) Monocytes # (Manual) PT INR APTT Fibrinogen POC ABG pH POC ABG pCO2 POC ABG pO2 VBG pH Sodium Potassium Chloride Carbon Dioxide BUN Creatinine Glucose POC Glucose 56 L Lactic Acid 5.10 H* 4.40 H* Calcium Phosphorus Magnesium Iron Ferritin Total Bilirubin Direct Bilirubin Alkaline Phosphatase Lactate Dehydrogenase Total Creatine Kinase NT-Pro-B Natriuret Pep Total Protein Albumin Triglycerides Vitamin B12 Folate Urine WBC (Auto) Urine Creatinine Urine Total Protein Complement C3 Lymph Enumerat CD4/CD8 Absolute CD3 Count % CD4 Cells Absolute CD4 Count % CD8 Cells HIV-1 RNA PCR copies/ml HIV-1 RNA (PCR) log 03/09/18 03/09/18 03/09/18 20:39 21:33 23:08 WBC RBC Hgb Hct RDW Plt Count Lymph % (Auto) Lymph # Seg Neutrophils % Seg Neuts % (Manual) Lymphocytes % (Manual) Monocytes % (Manual) Seg Neutrophils # Seg Neutrophils # Man Abs Lymphs (Manual) Lymphocytes # (Manual) Monocytes # (Manual) PT INR APTT Fibrinogen POC ABG pH POC ABG pCO2 POC ABG pO2 VBG pH Sodium Potassium Chloride Carbon Dioxide BUN Creatinine Glucose POC Glucose Lactic Acid 4.90 H* 4.10 H* Calcium Phosphorus Magnesium Iron Ferritin Total Bilirubin Direct Bilirubin Alkaline Phosphatase Lactate Dehydrogenase Total Creatine Kinase NT-Pro-B Natriuret Pep Total Protein Albumin Triglycerides Vitamin B12 Folate Urine WBC (Auto) Urine Creatinine Urine Total Protein Complement C3 77 L Lymph Enumerat CD4/CD8 Absolute CD3 Count % CD4 Cells Absolute CD4 Count % CD8 Cells HIV-1 RNA PCR copies/ml HIV-1 RNA (PCR) log 03/10/18 03/10/18 03/10/18 01:00 04:40 04:40 WBC 11.8 H RBC Hgb 11.7 L Hct RDW Plt Count 8 L* Lymph % (Auto) Lymph # Seg Neutrophils % Seg Neuts % (Manual) 93.0 H Lymphocytes % (Manual) 4.0 L Monocytes % (Manual) Seg Neutrophils # Seg Neutrophils # Man 11.0 H Abs Lymphs (Manual) Lymphocytes # (Manual) 0.5 L Monocytes # (Manual) PT INR APTT Fibrinogen POC ABG pH POC ABG pCO2 POC ABG pO2 VBG pH Sodium 136 L Potassium Chloride 96.6 L Carbon Dioxide 21 L BUN 62 H Creatinine 4.9 H Glucose POC Glucose Lactic Acid 4.10 H* Calcium 6.2 L D Phosphorus Magnesium Iron Ferritin Total Bilirubin Direct Bilirubin Alkaline Phosphatase Lactate Dehydrogenase Total Creatine Kinase NT-Pro-B Natriuret Pep Total Protein Albumin Triglycerides Vitamin B12 Folate Urine WBC (Auto) Urine Creatinine Urine Total Protein Complement C3 Lymph Enumerat CD4/CD8 Absolute CD3 Count % CD4 Cells Absolute CD4 Count % CD8 Cells HIV-1 RNA PCR copies/ml HIV-1 RNA (PCR) log 03/10/18 03/10/18 03/10/18 05:32 06:00 09:10 WBC RBC Hgb Hct RDW Plt Count Lymph % (Auto) Lymph # Seg Neutrophils % Seg Neuts % (Manual) Lymphocytes % (Manual) Monocytes % (Manual) Seg Neutrophils # Seg Neutrophils # Man Abs Lymphs (Manual) Lymphocytes # (Manual) Monocytes # (Manual) PT INR APTT Fibrinogen POC ABG pH 7.254 L POC ABG pCO2 47.8 H POC ABG pO2 59 L VBG pH Sodium Potassium Chloride Carbon Dioxide BUN Creatinine Glucose POC Glucose 56 L Lactic Acid Calcium Phosphorus Magnesium Iron Ferritin Total Bilirubin Direct Bilirubin Alkaline Phosphatase Lactate Dehydrogenase Total Creatine Kinase NT-Pro-B Natriuret Pep Total Protein Albumin Triglycerides Vitamin B12 Folate Urine WBC (Auto) 32.0 H Urine Creatinine Urine Total Protein Complement C3 Lymph Enumerat CD4/CD8 Absolute CD3 Count % CD4 Cells Absolute CD4 Count % CD8 Cells HIV-1 RNA PCR copies/ml HIV-1 RNA (PCR) log 03/10/18 03/10/18 03/10/18 09:14 11:16 11:16 WBC RBC Hgb Hct RDW Plt Count Lymph % (Auto) Lymph # Seg Neutrophils % Seg Neuts % (Manual) Lymphocytes % (Manual) Monocytes % (Manual) Seg Neutrophils # Seg Neutrophils # Man Abs Lymphs (Manual) Lymphocytes # (Manual) Monocytes # (Manual) PT INR APTT Fibrinogen POC ABG pH 7.266 L POC ABG pCO2 POC ABG pO2 VBG pH Sodium Potassium Chloride Carbon Dioxide BUN Creatinine Glucose POC Glucose Lactic Acid Calcium Phosphorus Magnesium Iron Ferritin Total Bilirubin Direct Bilirubin Alkaline Phosphatase Lactate Dehydrogenase 338 H Total Creatine Kinase 404 H NT-Pro-B Natriuret Pep 46044 H Total Protein Albumin Triglycerides Vitamin B12 Folate Urine WBC (Auto) Urine Creatinine Urine Total Protein Complement C3 Lymph Enumerat CD4/CD8 Absolute CD3 Count % CD4 Cells Absolute CD4 Count % CD8 Cells HIV-1 RNA PCR copies/ml HIV-1 RNA (PCR) log 03/10/18 03/10/18 03/10/18 11:51 18:15 18:15 WBC RBC Hgb Hct RDW Plt Count Lymph % (Auto) Lymph # Seg Neutrophils % Seg Neuts % (Manual) Lymphocytes % (Manual) Monocytes % (Manual) Seg Neutrophils # Seg Neutrophils # Man Abs Lymphs (Manual) Lymphocytes # (Manual) Monocytes # (Manual) PT 17.2 H 17.0 H INR 1.36 H 1.34 H APTT 38.5 H Fibrinogen 852 H POC ABG pH POC ABG pCO2 POC ABG pO2 VBG pH Sodium Potassium Chloride Carbon Dioxide BUN Creatinine Glucose POC Glucose 109 H Lactic Acid Calcium Phosphorus Magnesium Iron Ferritin Total Bilirubin Direct Bilirubin Alkaline Phosphatase Lactate Dehydrogenase Total Creatine Kinase NT-Pro-B Natriuret Pep Total Protein Albumin Triglycerides Vitamin B12 Folate Urine WBC (Auto) Urine Creatinine Urine Total Protein Complement C3 Lymph Enumerat CD4/CD8 Absolute CD3 Count % CD4 Cells Absolute CD4 Count % CD8 Cells HIV-1 RNA PCR copies/ml HIV-1 RNA (PCR) log 03/10/18 03/10/18 03/10/18 18:15 18:15 19:45 WBC RBC Hgb Hct RDW Plt Count Lymph % (Auto) Lymph # Seg Neutrophils % Seg Neuts % (Manual) Lymphocytes % (Manual) Monocytes % (Manual) Seg Neutrophils # Seg Neutrophils # Man Abs Lymphs (Manual) 779 L Lymphocytes # (Manual) Monocytes # (Manual) PT INR APTT Fibrinogen POC ABG pH POC ABG pCO2 POC ABG pO2 VBG pH Sodium Potassium Chloride Carbon Dioxide BUN Creatinine Glucose POC Glucose 136 H Lactic Acid Calcium Phosphorus Magnesium Iron Ferritin Total Bilirubin Direct Bilirubin Alkaline Phosphatase Lactate Dehydrogenase Total Creatine Kinase NT-Pro-B Natriuret Pep Total Protein Albumin Triglycerides Vitamin B12 Folate Urine WBC (Auto) Urine Creatinine Urine Total Protein Complement C3 Lymph Enumerat CD4/CD8 0.56 L Absolute CD3 Count 524 L % CD4 Cells 24 L Absolute CD4 Count 194 L % CD8 Cells 43 H HIV-1 RNA PCR copies/ml 94957 H HIV-1 RNA (PCR) log 4.71 H 03/10/18 03/10/18 03/10/18 20:40 22:07 23:06 WBC RBC Hgb Hct RDW Plt Count Lymph % (Auto) Lymph # Seg Neutrophils % Seg Neuts % (Manual) Lymphocytes % (Manual) Monocytes % (Manual) Seg Neutrophils # Seg Neutrophils # Man Abs Lymphs (Manual) Lymphocytes # (Manual) Monocytes # (Manual) PT INR APTT Fibrinogen POC ABG pH POC ABG pCO2 POC ABG pO2 VBG pH Sodium Potassium Chloride Carbon Dioxide BUN Creatinine Glucose POC Glucose 135 H 135 H 133 H Lactic Acid Calcium Phosphorus Magnesium Iron Ferritin Total Bilirubin Direct Bilirubin Alkaline Phosphatase Lactate Dehydrogenase Total Creatine Kinase NT-Pro-B Natriuret Pep Total Protein Albumin Triglycerides Vitamin B12 Folate Urine WBC (Auto) Urine Creatinine Urine Total Protein Complement C3 Lymph Enumerat CD4/CD8 Absolute CD3 Count % CD4 Cells Absolute CD4 Count % CD8 Cells HIV-1 RNA PCR copies/ml HIV-1 RNA (PCR) log 03/11/18 03/11/18 03/11/18 00:07 02:01 03:10 WBC RBC Hgb Hct RDW Plt Count Lymph % (Auto) Lymph # Seg Neutrophils % Seg Neuts % (Manual) Lymphocytes % (Manual) Monocytes % (Manual) Seg Neutrophils # Seg Neutrophils # Man Abs Lymphs (Manual) Lymphocytes # (Manual) Monocytes # (Manual) PT INR APTT Fibrinogen POC ABG pH POC ABG pCO2 POC ABG pO2 VBG pH Sodium Potassium Chloride Carbon Dioxide BUN Creatinine Glucose POC Glucose 148 H 161 H 189 H Lactic Acid Calcium Phosphorus Magnesium Iron Ferritin Total Bilirubin Direct Bilirubin Alkaline Phosphatase Lactate Dehydrogenase Total Creatine Kinase NT-Pro-B Natriuret Pep Total Protein Albumin Triglycerides Vitamin B12 Folate Urine WBC (Auto) Urine Creatinine Urine Total Protein Complement C3 Lymph Enumerat CD4/CD8 Absolute CD3 Count % CD4 Cells Absolute CD4 Count % CD8 Cells HIV-1 RNA PCR copies/ml HIV-1 RNA (PCR) log 03/11/18 03/11/18 03/11/18 04:12 04:50 04:50 WBC 12.8 H RBC Hgb 10.9 L Hct 32.5 L RDW 15.3 H Plt Count 17 L* D Lymph % (Auto) Lymph # Seg Neutrophils % Seg Neuts % (Manual) 96.0 H Lymphocytes % (Manual) 2.0 L Monocytes % (Manual) Seg Neutrophils # Seg Neutrophils # Man 12.3 H Abs Lymphs (Manual) Lymphocytes # (Manual) 0.3 L Monocytes # (Manual) PT INR APTT Fibrinogen POC ABG pH POC ABG pCO2 POC ABG pO2 VBG pH Sodium Potassium Chloride 94.2 L Carbon Dioxide BUN 62 H Creatinine 2.7 H Glucose 191 H POC Glucose 188 H Lactic Acid Calcium 7.9 L D Phosphorus Magnesium Iron Ferritin Total Bilirubin Direct Bilirubin Alkaline Phosphatase Lactate Dehydrogenase Total Creatine Kinase NT-Pro-B Natriuret Pep Total Protein Albumin Triglycerides Vitamin B12 Folate Urine WBC (Auto) Urine Creatinine Urine Total Protein Complement C3 Lymph Enumerat CD4/CD8 Absolute CD3 Count % CD4 Cells Absolute CD4 Count % CD8 Cells HIV-1 RNA PCR copies/ml HIV-1 RNA (PCR) log 03/11/18 03/11/18 03/11/18 05:30 05:33 07:47 WBC RBC Hgb Hct RDW Plt Count Lymph % (Auto) Lymph # Seg Neutrophils % Seg Neuts % (Manual) Lymphocytes % (Manual) Monocytes % (Manual) Seg Neutrophils # Seg Neutrophils # Man Abs Lymphs (Manual) Lymphocytes # (Manual) Monocytes # (Manual) PT INR APTT Fibrinogen POC ABG pH POC ABG pCO2 POC ABG pO2 58 L VBG pH Sodium Potassium Chloride Carbon Dioxide BUN Creatinine Glucose POC Glucose 187 H 151 H Lactic Acid Calcium Phosphorus Magnesium Iron Ferritin Total Bilirubin Direct Bilirubin Alkaline Phosphatase Lactate Dehydrogenase Total Creatine Kinase NT-Pro-B Natriuret Pep Total Protein Albumin Triglycerides Vitamin B12 Folate Urine WBC (Auto) Urine Creatinine Urine Total Protein Complement C3 Lymph Enumerat CD4/CD8 Absolute CD3 Count % CD4 Cells Absolute CD4 Count % CD8 Cells HIV-1 RNA PCR copies/ml HIV-1 RNA (PCR) log 03/11/18 03/11/18 03/11/18 12:11 13:18 14:26 WBC RBC Hgb Hct RDW Plt Count Lymph % (Auto) Lymph # Seg Neutrophils % Seg Neuts % (Manual) Lymphocytes % (Manual) Monocytes % (Manual) Seg Neutrophils # Seg Neutrophils # Man Abs Lymphs (Manual) Lymphocytes # (Manual) Monocytes # (Manual) PT INR APTT Fibrinogen POC ABG pH POC ABG pCO2 POC ABG pO2 VBG pH Sodium Potassium Chloride Carbon Dioxide BUN Creatinine Glucose POC Glucose 166 H 157 H 145 H Lactic Acid Calcium Phosphorus Magnesium Iron Ferritin Total Bilirubin Direct Bilirubin Alkaline Phosphatase Lactate Dehydrogenase Total Creatine Kinase NT-Pro-B Natriuret Pep Total Protein Albumin Triglycerides Vitamin B12 Folate Urine WBC (Auto) Urine Creatinine Urine Total Protein Complement C3 Lymph Enumerat CD4/CD8 Absolute CD3 Count % CD4 Cells Absolute CD4 Count % CD8 Cells HIV-1 RNA PCR copies/ml HIV-1 RNA (PCR) log 03/11/18 03/11/18 03/11/18 14:48 15:15 16:17 WBC 21.2 H RBC Hgb 11.0 L Hct 33.8 L RDW Plt Count 15 L* Lymph % (Auto) Lymph # Seg Neutrophils % Seg Neuts % (Manual) 92.0 H Lymphocytes % (Manual) 4.0 L Monocytes % (Manual) Seg Neutrophils # Seg Neutrophils # Man 19.5 H Abs Lymphs (Manual) Lymphocytes # (Manual) 0.8 L Monocytes # (Manual) PT INR APTT Fibrinogen POC ABG pH POC ABG pCO2 POC ABG pO2 VBG pH Sodium Potassium Chloride Carbon Dioxide BUN Creatinine Glucose POC Glucose 139 H 145 H Lactic Acid Calcium Phosphorus Magnesium Iron Ferritin Total Bilirubin Direct Bilirubin Alkaline Phosphatase Lactate Dehydrogenase Total Creatine Kinase NT-Pro-B Natriuret Pep Total Protein Albumin Triglycerides Vitamin B12 Folate Urine WBC (Auto) Urine Creatinine Urine Total Protein Complement C3 Lymph Enumerat CD4/CD8 Absolute CD3 Count % CD4 Cells Absolute CD4 Count % CD8 Cells HIV-1 RNA PCR copies/ml HIV-1 RNA (PCR) log 03/11/18 03/11/18 03/11/18 17:48 20:16 21:02 WBC RBC Hgb Hct RDW Plt Count Lymph % (Auto) Lymph # Seg Neutrophils % Seg Neuts % (Manual) Lymphocytes % (Manual) Monocytes % (Manual) Seg Neutrophils # Seg Neutrophils # Man Abs Lymphs (Manual) Lymphocytes # (Manual) Monocytes # (Manual) PT INR APTT Fibrinogen POC ABG pH POC ABG pCO2 POC ABG pO2 VBG pH Sodium Potassium Chloride Carbon Dioxide BUN Creatinine Glucose POC Glucose 142 H 158 H 146 H Lactic Acid Calcium Phosphorus Magnesium Iron Ferritin Total Bilirubin Direct Bilirubin Alkaline Phosphatase Lactate Dehydrogenase Total Creatine Kinase NT-Pro-B Natriuret Pep Total Protein Albumin Triglycerides Vitamin B12 Folate Urine WBC (Auto) Urine Creatinine Urine Total Protein Complement C3 Lymph Enumerat CD4/CD8 Absolute CD3 Count % CD4 Cells Absolute CD4 Count % CD8 Cells HIV-1 RNA PCR copies/ml HIV-1 RNA (PCR) log 03/11/18 03/12/18 03/12/18 23:14 00:54 06:19 WBC 29.6 H RBC Hgb 10.6 L Hct 31.3 L RDW Plt Count 51 L D Lymph % (Auto) Lymph # Seg Neutrophils % Seg Neuts % (Manual) Lymphocytes % (Manual) Monocytes % (Manual) Seg Neutrophils # Seg Neutrophils # Man Abs Lymphs (Manual) Lymphocytes # (Manual) Monocytes # (Manual) PT INR APTT Fibrinogen POC ABG pH POC ABG pCO2 POC ABG pO2 VBG pH Sodium Potassium Chloride Carbon Dioxide BUN Creatinine Glucose POC Glucose 168 H 185 H Lactic Acid Calcium Phosphorus Magnesium Iron Ferritin Total Bilirubin Direct Bilirubin Alkaline Phosphatase Lactate Dehydrogenase Total Creatine Kinase NT-Pro-B Natriuret Pep Total Protein Albumin Triglycerides Vitamin B12 Folate Urine WBC (Auto) Urine Creatinine Urine Total Protein Complement C3 Lymph Enumerat CD4/CD8 Absolute CD3 Count % CD4 Cells Absolute CD4 Count % CD8 Cells HIV-1 RNA PCR copies/ml HIV-1 RNA (PCR) log 03/12/18 03/12/18 03/12/18 06:29 06:29 06:29 WBC 32.7 H RBC Hgb 10.5 L Hct 31.7 L RDW 15.3 H Plt Count 34 L Lymph % (Auto) Lymph # Seg Neutrophils % Seg Neuts % (Manual) 81.5 H Lymphocytes % (Manual) 7.0 L Monocytes % (Manual) 7.5 H Seg Neutrophils # Seg Neutrophils # Man 26.7 H Abs Lymphs (Manual) Lymphocytes # (Manual) Monocytes # (Manual) 2.5 H PT INR APTT Fibrinogen POC ABG pH POC ABG pCO2 POC ABG pO2 VBG pH Sodium Potassium 3.4 L Chloride Carbon Dioxide BUN 69 H Creatinine 2.2 H Glucose 181 H POC Glucose Lactic Acid Calcium Phosphorus Magnesium Iron Ferritin Total Bilirubin 2.30 H Direct Bilirubin 1.5 H Alkaline Phosphatase Lactate Dehydrogenase Total Creatine Kinase NT-Pro-B Natriuret Pep Total Protein 6.2 L Albumin 3.1 L Triglycerides Vitamin B12 Folate Urine WBC (Auto) Urine Creatinine Urine Total Protein Complement C3 Lymph Enumerat CD4/CD8 Absolute CD3 Count % CD4 Cells Absolute CD4 Count % CD8 Cells HIV-1 RNA PCR copies/ml HIV-1 RNA (PCR) log 03/12/18 03/12/18 03/12/18 07:21 07:44 10:16 WBC RBC Hgb Hct RDW Plt Count Lymph % (Auto) Lymph # Seg Neutrophils % Seg Neuts % (Manual) Lymphocytes % (Manual) Monocytes % (Manual) Seg Neutrophils # Seg Neutrophils # Man Abs Lymphs (Manual) Lymphocytes # (Manual) Monocytes # (Manual) PT INR APTT Fibrinogen POC ABG pH 7.337 L POC ABG pCO2 54.9 H POC ABG pO2 59 L VBG pH Sodium Potassium Chloride Carbon Dioxide BUN Creatinine Glucose POC Glucose 157 H 153 H Lactic Acid Calcium Phosphorus Magnesium Iron Ferritin Total Bilirubin Direct Bilirubin Alkaline Phosphatase Lactate Dehydrogenase Total Creatine Kinase NT-Pro-B Natriuret Pep Total Protein Albumin Triglycerides Vitamin B12 Folate Urine WBC (Auto) Urine Creatinine Urine Total Protein Complement C3 Lymph Enumerat CD4/CD8 Absolute CD3 Count % CD4 Cells Absolute CD4 Count % CD8 Cells HIV-1 RNA PCR copies/ml HIV-1 RNA (PCR) log 03/12/18 03/12/18 03/12/18 12:53 15:22 18:17 WBC RBC Hgb Hct RDW Plt Count Lymph % (Auto) Lymph # Seg Neutrophils % Seg Neuts % (Manual) Lymphocytes % (Manual) Monocytes % (Manual) Seg Neutrophils # Seg Neutrophils # Man Abs Lymphs (Manual) Lymphocytes # (Manual) Monocytes # (Manual) PT INR APTT Fibrinogen POC ABG pH POC ABG pCO2 61.7 H POC ABG pO2 110 H VBG pH Sodium Potassium Chloride Carbon Dioxide BUN Creatinine Glucose POC Glucose 148 H 148 H Lactic Acid Calcium Phosphorus Magnesium Iron Ferritin Total Bilirubin Direct Bilirubin Alkaline Phosphatase Lactate Dehydrogenase Total Creatine Kinase NT-Pro-B Natriuret Pep Total Protein Albumin Triglycerides Vitamin B12 Folate Urine WBC (Auto) Urine Creatinine Urine Total Protein Complement C3 Lymph Enumerat CD4/CD8 Absolute CD3 Count % CD4 Cells Absolute CD4 Count % CD8 Cells HIV-1 RNA PCR copies/ml HIV-1 RNA (PCR) log 03/12/18 03/13/18 03/13/18 21:34 01:14 04:37 WBC RBC Hgb Hct RDW Plt Count Lymph % (Auto) Lymph # Seg Neutrophils % Seg Neuts % (Manual) Lymphocytes % (Manual) Monocytes % (Manual) Seg Neutrophils # Seg Neutrophils # Man Abs Lymphs (Manual) Lymphocytes # (Manual) Monocytes # (Manual) PT INR APTT Fibrinogen POC ABG pH POC ABG pCO2 60.2 H POC ABG pO2 115 H VBG pH Sodium Potassium Chloride Carbon Dioxide BUN Creatinine Glucose POC Glucose 161 H 187 H Lactic Acid Calcium Phosphorus Magnesium Iron Ferritin Total Bilirubin Direct Bilirubin Alkaline Phosphatase Lactate Dehydrogenase Total Creatine Kinase NT-Pro-B Natriuret Pep Total Protein Albumin Triglycerides Vitamin B12 Folate Urine WBC (Auto) Urine Creatinine Urine Total Protein Complement C3 Lymph Enumerat CD4/CD8 Absolute CD3 Count % CD4 Cells Absolute CD4 Count % CD8 Cells HIV-1 RNA PCR copies/ml HIV-1 RNA (PCR) log 03/13/18 03/13/18 03/13/18 05:22 05:22 08:24 WBC 30.4 H RBC 3.45 L Hgb 9.8 L Hct 29.7 L RDW Plt Count 37 L Lymph % (Auto) Lymph # Seg Neutrophils % Seg Neuts % (Manual) 75.5 H Lymphocytes % (Manual) 3.0 L Monocytes % (Manual) Seg Neutrophils # Seg Neutrophils # Man 23.0 H Abs Lymphs (Manual) Lymphocytes # (Manual) 0.9 L Monocytes # (Manual) PT INR APTT Fibrinogen POC ABG pH POC ABG pCO2 POC ABG pO2 VBG pH Sodium 146 H Potassium Chloride Carbon Dioxide 35 H D BUN 71 H Creatinine 1.7 H Glucose 187 H POC Glucose 210 H Lactic Acid Calcium Phosphorus Magnesium Iron Ferritin Total Bilirubin Direct Bilirubin Alkaline Phosphatase Lactate Dehydrogenase Total Creatine Kinase NT-Pro-B Natriuret Pep Total Protein Albumin Triglycerides Vitamin B12 Folate Urine WBC (Auto) Urine Creatinine Urine Total Protein Complement C3 Lymph Enumerat CD4/CD8 Absolute CD3 Count % CD4 Cells Absolute CD4 Count % CD8 Cells HIV-1 RNA PCR copies/ml HIV-1 RNA (PCR) log 03/13/18 03/13/18 03/13/18 12:22 12:44 17:27 WBC RBC Hgb Hct RDW Plt Count Lymph % (Auto) Lymph # Seg Neutrophils % Seg Neuts % (Manual) Lymphocytes % (Manual) Monocytes % (Manual) Seg Neutrophils # Seg Neutrophils # Man Abs Lymphs (Manual) Lymphocytes # (Manual) Monocytes # (Manual) PT INR APTT Fibrinogen POC ABG pH POC ABG pCO2 POC ABG pO2 VBG pH Sodium Potassium Chloride Carbon Dioxide BUN Creatinine Glucose POC Glucose 208 H 169 H Lactic Acid Calcium Phosphorus Magnesium 3.00 H Iron Ferritin Total Bilirubin Direct Bilirubin Alkaline Phosphatase Lactate Dehydrogenase Total Creatine Kinase NT-Pro-B Natriuret Pep Total Protein Albumin Triglycerides Vitamin B12 Folate Urine WBC (Auto) Urine Creatinine Urine Total Protein Complement C3 Lymph Enumerat CD4/CD8 Absolute CD3 Count % CD4 Cells Absolute CD4 Count % CD8 Cells HIV-1 RNA PCR copies/ml HIV-1 RNA (PCR) log 03/13/18 03/14/18 03/14/18 23:35 04:29 05:23 WBC RBC Hgb Hct RDW Plt Count Lymph % (Auto) Lymph # Seg Neutrophils % Seg Neuts % (Manual) Lymphocytes % (Manual) Monocytes % (Manual) Seg Neutrophils # Seg Neutrophils # Man Abs Lymphs (Manual) Lymphocytes # (Manual) Monocytes # (Manual) PT INR APTT Fibrinogen POC ABG pH 7.502 H POC ABG pCO2 53.2 H POC ABG pO2 VBG pH Sodium Potassium Chloride Carbon Dioxide BUN Creatinine Glucose POC Glucose 256 H 212 H Lactic Acid Calcium Phosphorus Magnesium Iron Ferritin Total Bilirubin Direct Bilirubin Alkaline Phosphatase Lactate Dehydrogenase Total Creatine Kinase NT-Pro-B Natriuret Pep Total Protein Albumin Triglycerides Vitamin B12 Folate Urine WBC (Auto) Urine Creatinine Urine Total Protein Complement C3 Lymph Enumerat CD4/CD8 Absolute CD3 Count % CD4 Cells Absolute CD4 Count % CD8 Cells HIV-1 RNA PCR copies/ml HIV-1 RNA (PCR) log 03/14/18 03/14/18 03/14/18 06:00 06:00 06:00 WBC 27.3 H RBC 3.52 L Hgb 10.0 L Hct 30.8 L RDW Plt Count 50 L Lymph % (Auto) Lymph # Seg Neutrophils % Seg Neuts % (Manual) 87.0 H Lymphocytes % (Manual) 3.0 L Monocytes % (Manual) Seg Neutrophils # Seg Neutrophils # Man 23.8 H Abs Lymphs (Manual) Lymphocytes # (Manual) 0.8 L Monocytes # (Manual) 1.6 H PT INR APTT Fibrinogen POC ABG pH POC ABG pCO2 POC ABG pO2 VBG pH Sodium 156 H D Potassium Chloride 109.5 H Carbon Dioxide 37 H BUN 70 H Creatinine Glucose 202 H POC Glucose Lactic Acid Calcium Phosphorus Magnesium Iron Ferritin Total Bilirubin Direct Bilirubin Alkaline Phosphatase Lactate Dehydrogenase Total Creatine Kinase 17 L NT-Pro-B Natriuret Pep Total Protein Albumin Triglycerides Vitamin B12 Folate Urine WBC (Auto) Urine Creatinine Urine Total Protein Complement C3 Lymph Enumerat CD4/CD8 Absolute CD3 Count % CD4 Cells Absolute CD4 Count % CD8 Cells HIV-1 RNA PCR copies/ml HIV-1 RNA (PCR) log 03/14/18 03/14/18 03/14/18 07:00 07:00 07:00 WBC RBC Hgb Hct RDW Plt Count Lymph % (Auto) Lymph # Seg Neutrophils % Seg Neuts % (Manual) Lymphocytes % (Manual) Monocytes % (Manual) Seg Neutrophils # Seg Neutrophils # Man Abs Lymphs (Manual) Lymphocytes # (Manual) Monocytes # (Manual) PT INR APTT Fibrinogen POC ABG pH POC ABG pCO2 POC ABG pO2 VBG pH Sodium Potassium Chloride Carbon Dioxide BUN Creatinine Glucose POC Glucose Lactic Acid Calcium Phosphorus Magnesium Iron 42 L Ferritin 532.4 H Total Bilirubin Direct Bilirubin Alkaline Phosphatase Lactate Dehydrogenase Total Creatine Kinase NT-Pro-B Natriuret Pep Total Protein Albumin Triglycerides Vitamin B12 1825 H Folate Urine WBC (Auto) Urine Creatinine Urine Total Protein Complement C3 Lymph Enumerat CD4/CD8 Absolute CD3 Count % CD4 Cells Absolute CD4 Count % CD8 Cells HIV-1 RNA PCR copies/ml HIV-1 RNA (PCR) log 03/14/18 03/14/18 03/14/18 07:00 07:00 13:01 WBC RBC Hgb Hct RDW Plt Count Lymph % (Auto) Lymph # Seg Neutrophils % Seg Neuts % (Manual) Lymphocytes % (Manual) Monocytes % (Manual) Seg Neutrophils # Seg Neutrophils # Man Abs Lymphs (Manual) Lymphocytes # (Manual) Monocytes # (Manual) PT INR APTT Fibrinogen POC ABG pH POC ABG pCO2 POC ABG pO2 VBG pH Sodium Potassium Chloride Carbon Dioxide BUN Creatinine Glucose POC Glucose 201 H Lactic Acid Calcium Phosphorus Magnesium Iron Ferritin Total Bilirubin Direct Bilirubin Alkaline Phosphatase Lactate Dehydrogenase Total Creatine Kinase NT-Pro-B Natriuret Pep Total Protein Albumin Triglycerides 532 H Vitamin B12 Folate 6.29 L Urine WBC (Auto) Urine Creatinine Urine Total Protein Complement C3 Lymph Enumerat CD4/CD8 Absolute CD3 Count % CD4 Cells Absolute CD4 Count % CD8 Cells HIV-1 RNA PCR copies/ml HIV-1 RNA (PCR) log 03/14/18 03/14/18 03/14/18 17:37 21:04 23:30 WBC RBC Hgb Hct RDW Plt Count Lymph % (Auto) Lymph # Seg Neutrophils % Seg Neuts % (Manual) Lymphocytes % (Manual) Monocytes % (Manual) Seg Neutrophils # Seg Neutrophils # Man Abs Lymphs (Manual) Lymphocytes # (Manual) Monocytes # (Manual) PT INR APTT Fibrinogen POC ABG pH POC ABG pCO2 POC ABG pO2 VBG pH Sodium 155 H Potassium Chloride 114.1 H Carbon Dioxide 33 H BUN 58 H Creatinine Glucose 166 H POC Glucose 179 H 167 H Lactic Acid Calcium Phosphorus Magnesium Iron Ferritin Total Bilirubin Direct Bilirubin Alkaline Phosphatase Lactate Dehydrogenase Total Creatine Kinase NT-Pro-B Natriuret Pep Total Protein Albumin Triglycerides Vitamin B12 Folate Urine WBC (Auto) Urine Creatinine Urine Total Protein Complement C3 Lymph Enumerat CD4/CD8 Absolute CD3 Count % CD4 Cells Absolute CD4 Count % CD8 Cells HIV-1 RNA PCR copies/ml HIV-1 RNA (PCR) log 03/15/18 03/15/18 03/15/18 04:44 04:44 04:44 WBC 26.0 H RBC Hgb 10.5 L Hct 33.0 L RDW Plt Count 70 L Lymph % (Auto) Lymph # Seg Neutrophils % Seg Neuts % (Manual) 91.0 H Lymphocytes % (Manual) 6.0 L Monocytes % (Manual) Seg Neutrophils # Seg Neutrophils # Man 23.7 H Abs Lymphs (Manual) Lymphocytes # (Manual) Monocytes # (Manual) PT INR APTT Fibrinogen POC ABG pH POC ABG pCO2 POC ABG pO2 VBG pH Sodium 155 H Potassium Chloride 114.3 H Carbon Dioxide 31 H BUN 51 H Creatinine Glucose 173 H POC Glucose Lactic Acid Calcium Phosphorus Magnesium 2.80 H Iron Ferritin Total Bilirubin Direct Bilirubin Alkaline Phosphatase Lactate Dehydrogenase Total Creatine Kinase NT-Pro-B Natriuret Pep Total Protein Albumin Triglycerides Vitamin B12 Folate Urine WBC (Auto) Urine Creatinine Urine Total Protein Complement C3 Lymph Enumerat CD4/CD8 Absolute CD3 Count % CD4 Cells Absolute CD4 Count % CD8 Cells HIV-1 RNA PCR copies/ml HIV-1 RNA (PCR) log 03/15/18 03/15/18 03/15/18 04:53 06:36 17:25 WBC RBC Hgb Hct RDW Plt Count Lymph % (Auto) Lymph # Seg Neutrophils % Seg Neuts % (Manual) Lymphocytes % (Manual) Monocytes % (Manual) Seg Neutrophils # Seg Neutrophils # Man Abs Lymphs (Manual) Lymphocytes # (Manual) Monocytes # (Manual) PT INR APTT Fibrinogen POC ABG pH POC ABG pCO2 59.0 H POC ABG pO2 112 H VBG pH Sodium Potassium Chloride Carbon Dioxide BUN Creatinine Glucose POC Glucose 199 H 138 H Lactic Acid Calcium Phosphorus Magnesium Iron Ferritin Total Bilirubin Direct Bilirubin Alkaline Phosphatase Lactate Dehydrogenase Total Creatine Kinase NT-Pro-B Natriuret Pep Total Protein Albumin Triglycerides Vitamin B12 Folate Urine WBC (Auto) Urine Creatinine Urine Total Protein Complement C3 Lymph Enumerat CD4/CD8 Absolute CD3 Count % CD4 Cells Absolute CD4 Count % CD8 Cells HIV-1 RNA PCR copies/ml HIV-1 RNA (PCR) log 03/15/18 03/16/18 03/16/18 23:20 03:59 05:01 WBC 21.9 H RBC Hgb 10.3 L Hct 32.5 L RDW Plt Count 88 L Lymph % (Auto) Lymph # Seg Neutrophils % Seg Neuts % (Manual) 98.0 H Lymphocytes % (Manual) 2.0 L Monocytes % (Manual) Seg Neutrophils # Seg Neutrophils # Man 21.5 H Abs Lymphs (Manual) Lymphocytes # (Manual) 0.4 L Monocytes # (Manual) PT INR APTT Fibrinogen POC ABG pH POC ABG pCO2 46.6 H POC ABG pO2 50 L VBG pH Sodium Potassium Chloride Carbon Dioxide BUN Creatinine Glucose POC Glucose 182 H Lactic Acid Calcium Phosphorus Magnesium Iron Ferritin Total Bilirubin Direct Bilirubin Alkaline Phosphatase Lactate Dehydrogenase Total Creatine Kinase NT-Pro-B Natriuret Pep Total Protein Albumin Triglycerides Vitamin B12 Folate Urine WBC (Auto) Urine Creatinine Urine Total Protein Complement C3 Lymph Enumerat CD4/CD8 Absolute CD3 Count % CD4 Cells Absolute CD4 Count % CD8 Cells HIV-1 RNA PCR copies/ml HIV-1 RNA (PCR) log 03/16/18 03/16/18 03/16/18 05:01 05:01 05:29 WBC RBC Hgb Hct RDW Plt Count Lymph % (Auto) Lymph # Seg Neutrophils % Seg Neuts % (Manual) Lymphocytes % (Manual) Monocytes % (Manual) Seg Neutrophils # Seg Neutrophils # Man Abs Lymphs (Manual) Lymphocytes # (Manual) Monocytes # (Manual) PT INR APTT Fibrinogen POC ABG pH POC ABG pCO2 POC ABG pO2 VBG pH Sodium 148 H Potassium 5.7 H Chloride 112.1 H Carbon Dioxide BUN 41 H Creatinine Glucose 234 H POC Glucose 257 H Lactic Acid Calcium Phosphorus Magnesium Iron Ferritin Total Bilirubin Direct Bilirubin Alkaline Phosphatase Lactate Dehydrogenase Total Creatine Kinase NT-Pro-B Natriuret Pep Total Protein Albumin Triglycerides 212 H Vitamin B12 Folate Urine WBC (Auto) Urine Creatinine Urine Total Protein Complement C3 Lymph Enumerat CD4/CD8 Absolute CD3 Count % CD4 Cells Absolute CD4 Count % CD8 Cells HIV-1 RNA PCR copies/ml HIV-1 RNA (PCR) log 03/16/18 03/16/18 03/16/18 11:30 15:56 17:28 WBC RBC Hgb Hct RDW Plt Count Lymph % (Auto) Lymph # Seg Neutrophils % Seg Neuts % (Manual) Lymphocytes % (Manual) Monocytes % (Manual) Seg Neutrophils # Seg Neutrophils # Man Abs Lymphs (Manual) Lymphocytes # (Manual) Monocytes # (Manual) PT INR APTT Fibrinogen POC ABG pH POC ABG pCO2 POC ABG pO2 VBG pH Sodium Potassium 5.5 H Chloride Carbon Dioxide BUN 39 H Creatinine Glucose 186 H POC Glucose 186 H 153 H Lactic Acid Calcium Phosphorus Magnesium Iron Ferritin Total Bilirubin Direct Bilirubin Alkaline Phosphatase Lactate Dehydrogenase Total Creatine Kinase NT-Pro-B Natriuret Pep Total Protein Albumin Triglycerides Vitamin B12 Folate Urine WBC (Auto) Urine Creatinine Urine Total Protein Complement C3 Lymph Enumerat CD4/CD8 Absolute CD3 Count % CD4 Cells Absolute CD4 Count % CD8 Cells HIV-1 RNA PCR copies/ml HIV-1 RNA (PCR) log 03/16/18 03/17/18 03/17/18 23:48 04:25 04:25 WBC 13.9 H RBC 2.89 L Hgb 8.2 L Hct 27.8 L RDW Plt Count 85 L Lymph % (Auto) Lymph # Seg Neutrophils % Seg Neuts % (Manual) 88.0 H Lymphocytes % (Manual) 4.0 L Monocytes % (Manual) Seg Neutrophils # Seg Neutrophils # Man 12.2 H Abs Lymphs (Manual) Lymphocytes # (Manual) 0.6 L Monocytes # (Manual) PT INR APTT Fibrinogen POC ABG pH POC ABG pCO2 POC ABG pO2 VBG pH Sodium Potassium 5.7 H Chloride 107.5 H Carbon Dioxide BUN 38 H Creatinine Glucose 165 H POC Glucose 131 H Lactic Acid Calcium Phosphorus Magnesium Iron Ferritin Total Bilirubin Direct Bilirubin Alkaline Phosphatase Lactate Dehydrogenase Total Creatine Kinase NT-Pro-B Natriuret Pep Total Protein Albumin Triglycerides Vitamin B12 Folate Urine WBC (Auto) Urine Creatinine Urine Total Protein Complement C3 Lymph Enumerat CD4/CD8 Absolute CD3 Count % CD4 Cells Absolute CD4 Count % CD8 Cells HIV-1 RNA PCR copies/ml HIV-1 RNA (PCR) log 03/17/18 03/17/18 03/17/18 04:25 04:51 05:39 WBC RBC Hgb Hct RDW Plt Count Lymph % (Auto) Lymph # Seg Neutrophils % Seg Neuts % (Manual) Lymphocytes % (Manual) Monocytes % (Manual) Seg Neutrophils # Seg Neutrophils # Man Abs Lymphs (Manual) Lymphocytes # (Manual) Monocytes # (Manual) PT INR APTT Fibrinogen POC ABG pH POC ABG pCO2 45.4 H POC ABG pO2 174 H VBG pH Sodium Potassium Chloride Carbon Dioxide BUN Creatinine Glucose POC Glucose 140 H Lactic Acid Calcium Phosphorus Magnesium Iron Ferritin Total Bilirubin Direct Bilirubin Alkaline Phosphatase Lactate Dehydrogenase 232 H Total Creatine Kinase 33 L NT-Pro-B Natriuret Pep Total Protein Albumin Triglycerides Vitamin B12 Folate Urine WBC (Auto) Urine Creatinine Urine Total Protein Complement C3 Lymph Enumerat CD4/CD8 Absolute CD3 Count % CD4 Cells Absolute CD4 Count % CD8 Cells HIV-1 RNA PCR copies/ml HIV-1 RNA (PCR) log 03/17/18 03/17/18 03/17/18 11:51 14:40 17:40 WBC RBC Hgb Hct RDW Plt Count Lymph % (Auto) Lymph # Seg Neutrophils % Seg Neuts % (Manual) Lymphocytes % (Manual) Monocytes % (Manual) Seg Neutrophils # Seg Neutrophils # Man Abs Lymphs (Manual) Lymphocytes # (Manual) Monocytes # (Manual) PT INR APTT Fibrinogen POC ABG pH POC ABG pCO2 POC ABG pO2 VBG pH Sodium Potassium Chloride Carbon Dioxide BUN 36 H Creatinine Glucose 107 H POC Glucose 122 H 113 H Lactic Acid Calcium Phosphorus Magnesium Iron Ferritin Total Bilirubin Direct Bilirubin Alkaline Phosphatase Lactate Dehydrogenase Total Creatine Kinase NT-Pro-B Natriuret Pep Total Protein Albumin Triglycerides Vitamin B12 Folate Urine WBC (Auto) Urine Creatinine Urine Total Protein Complement C3 Lymph Enumerat CD4/CD8 Absolute CD3 Count % CD4 Cells Absolute CD4 Count % CD8 Cells HIV-1 RNA PCR copies/ml HIV-1 RNA (PCR) log 03/18/18 03/18/18 03/18/18 04:16 04:16 04:48 WBC 14.9 H RBC Hgb 10.8 L Hct 33.3 L RDW Plt Count Lymph % (Auto) Lymph # Seg Neutrophils % Seg Neuts % (Manual) 76.0 H Lymphocytes % (Manual) 5.0 L Monocytes % (Manual) Seg Neutrophils # Seg Neutrophils # Man 11.3 H Abs Lymphs (Manual) Lymphocytes # (Manual) 0.7 L Monocytes # (Manual) PT INR APTT Fibrinogen POC ABG pH POC ABG pCO2 POC ABG pO2 54 L VBG pH Sodium Potassium Chloride Carbon Dioxide BUN 34 H Creatinine Glucose 116 H POC Glucose Lactic Acid Calcium Phosphorus Magnesium Iron Ferritin Total Bilirubin Direct Bilirubin Alkaline Phosphatase Lactate Dehydrogenase Total Creatine Kinase NT-Pro-B Natriuret Pep Total Protein Albumin Triglycerides Vitamin B12 Folate Urine WBC (Auto) Urine Creatinine Urine Total Protein Complement C3 Lymph Enumerat CD4/CD8 Absolute CD3 Count % CD4 Cells Absolute CD4 Count % CD8 Cells HIV-1 RNA PCR copies/ml HIV-1 RNA (PCR) log 03/18/18 03/18/18 03/19/18 05:13 18:40 04:50 WBC RBC Hgb Hct RDW Plt Count Lymph % (Auto) Lymph # Seg Neutrophils % Seg Neuts % (Manual) Lymphocytes % (Manual) Monocytes % (Manual) Seg Neutrophils # Seg Neutrophils # Man Abs Lymphs (Manual) Lymphocytes # (Manual) Monocytes # (Manual) PT INR APTT Fibrinogen POC ABG pH POC ABG pCO2 46.1 H POC ABG pO2 112 H VBG pH Sodium Potassium Chloride Carbon Dioxide BUN Creatinine Glucose POC Glucose 127 H 110 H Lactic Acid Calcium Phosphorus Magnesium Iron Ferritin Total Bilirubin Direct Bilirubin Alkaline Phosphatase Lactate Dehydrogenase Total Creatine Kinase NT-Pro-B Natriuret Pep Total Protein Albumin Triglycerides Vitamin B12 Folate Urine WBC (Auto) Urine Creatinine Urine Total Protein Complement C3 Lymph Enumerat CD4/CD8 Absolute CD3 Count % CD4 Cells Absolute CD4 Count % CD8 Cells HIV-1 RNA PCR copies/ml HIV-1 RNA (PCR) log 03/19/18 03/19/18 03/19/18 05:27 06:00 06:00 WBC 13.0 H RBC 3.43 L Hgb 9.7 L Hct 30.6 L RDW Plt Count Lymph % (Auto) 8.4 L Lymph # 1.1 L Seg Neutrophils % 87.4 H Seg Neuts % (Manual) Lymphocytes % (Manual) Monocytes % (Manual) Seg Neutrophils # 11.4 H Seg Neutrophils # Man Abs Lymphs (Manual) Lymphocytes # (Manual) Monocytes # (Manual) PT INR APTT Fibrinogen POC ABG pH POC ABG pCO2 POC ABG pO2 VBG pH Sodium Potassium Chloride 107.8 H Carbon Dioxide BUN 28 H Creatinine Glucose 220 H POC Glucose 69 L Lactic Acid Calcium 8.1 L Phosphorus Magnesium Iron Ferritin Total Bilirubin Direct Bilirubin Alkaline Phosphatase Lactate Dehydrogenase Total Creatine Kinase NT-Pro-B Natriuret Pep Total Protein Albumin Triglycerides Vitamin B12 Folate Urine WBC (Auto) Urine Creatinine Urine Total Protein Complement C3 Lymph Enumerat CD4/CD8 Absolute CD3 Count % CD4 Cells Absolute CD4 Count % CD8 Cells HIV-1 RNA PCR copies/ml HIV-1 RNA (PCR) log 03/19/18 03/19/18 03/20/18 06:00 17:10 00:01 WBC RBC Hgb Hct RDW Plt Count Lymph % (Auto) Lymph # Seg Neutrophils % Seg Neuts % (Manual) Lymphocytes % (Manual) Monocytes % (Manual) Seg Neutrophils # Seg Neutrophils # Man Abs Lymphs (Manual) Lymphocytes # (Manual) Monocytes # (Manual) PT INR APTT Fibrinogen POC ABG pH POC ABG pCO2 POC ABG pO2 VBG pH Sodium Potassium Chloride Carbon Dioxide BUN Creatinine Glucose POC Glucose 132 H 181 H Lactic Acid Calcium Phosphorus Magnesium Iron Ferritin Total Bilirubin Direct Bilirubin Alkaline Phosphatase Lactate Dehydrogenase Total Creatine Kinase NT-Pro-B Natriuret Pep Total Protein Albumin Triglycerides 177 H Vitamin B12 Folate Urine WBC (Auto) Urine Creatinine Urine Total Protein Complement C3 Lymph Enumerat CD4/CD8 Absolute CD3 Count % CD4 Cells Absolute CD4 Count % CD8 Cells HIV-1 RNA PCR copies/ml HIV-1 RNA (PCR) log 03/20/18 03/20/18 03/20/18 04:00 04:00 04:07 WBC 19.0 H RBC 3.53 L Hgb 10.5 L Hct 31.2 L RDW Plt Count Lymph % (Auto) Lymph # Seg Neutrophils % Seg Neuts % (Manual) 94.0 H Lymphocytes % (Manual) 4.0 L Monocytes % (Manual) Seg Neutrophils # Seg Neutrophils # Man 17.9 H Abs Lymphs (Manual) Lymphocytes # (Manual) 0.8 L Monocytes # (Manual) PT INR APTT Fibrinogen POC ABG pH 7.342 L POC ABG pCO2 48.4 H POC ABG pO2 VBG pH Sodium Potassium Chloride 107.1 H Carbon Dioxide BUN 30 H Creatinine Glucose 143 H POC Glucose Lactic Acid Calcium 8.1 L Phosphorus Magnesium Iron Ferritin Total Bilirubin Direct Bilirubin Alkaline Phosphatase Lactate Dehydrogenase Total Creatine Kinase NT-Pro-B Natriuret Pep Total Protein Albumin Triglycerides Vitamin B12 Folate Urine WBC (Auto) Urine Creatinine Urine Total Protein Complement C3 Lymph Enumerat CD4/CD8 Absolute CD3 Count % CD4 Cells Absolute CD4 Count % CD8 Cells HIV-1 RNA PCR copies/ml HIV-1 RNA (PCR) log 03/20/18 03/20/18 03/20/18 11:31 17:55 23:50 WBC RBC Hgb Hct RDW Plt Count Lymph % (Auto) Lymph # Seg Neutrophils % Seg Neuts % (Manual) Lymphocytes % (Manual) Monocytes % (Manual) Seg Neutrophils # Seg Neutrophils # Man Abs Lymphs (Manual) Lymphocytes # (Manual) Monocytes # (Manual) PT INR APTT Fibrinogen POC ABG pH POC ABG pCO2 POC ABG pO2 VBG pH Sodium Potassium Chloride Carbon Dioxide BUN Creatinine Glucose POC Glucose 136 H 162 H 148 H Lactic Acid Calcium Phosphorus Magnesium Iron Ferritin Total Bilirubin Direct Bilirubin Alkaline Phosphatase Lactate Dehydrogenase Total Creatine Kinase NT-Pro-B Natriuret Pep Total Protein Albumin Triglycerides Vitamin B12 Folate Urine WBC (Auto) Urine Creatinine Urine Total Protein Complement C3 Lymph Enumerat CD4/CD8 Absolute CD3 Count % CD4 Cells Absolute CD4 Count % CD8 Cells HIV-1 RNA PCR copies/ml HIV-1 RNA (PCR) log 03/21/18 03/21/18 03/21/18 04:41 05:15 05:15 WBC RBC 2.37 L Hgb 7.2 L D Hct 21.4 L D RDW Plt Count Lymph % (Auto) 8.9 L Lymph # 1.0 L Seg Neutrophils % 82.1 H Seg Neuts % (Manual) Lymphocytes % (Manual) Monocytes % (Manual) Seg Neutrophils # 8.9 H Seg Neutrophils # Man Abs Lymphs (Manual) Lymphocytes # (Manual) Monocytes # (Manual) PT INR APTT Fibrinogen POC ABG pH 7.344 L POC ABG pCO2 52.8 H POC ABG pO2 140 H VBG pH Sodium Potassium 3.0 L D Chloride 117.5 H Carbon Dioxide 21 L BUN 21 H Creatinine 0.5 L Glucose 118 H POC Glucose Lactic Acid Calcium 6.0 L D Phosphorus 1.90 L D Magnesium Iron Ferritin Total Bilirubin Direct Bilirubin Alkaline Phosphatase Lactate Dehydrogenase Total Creatine Kinase NT-Pro-B Natriuret Pep Total Protein Albumin Triglycerides Vitamin B12 Folate Urine WBC (Auto) Urine Creatinine Urine Total Protein Complement C3 Lymph Enumerat CD4/CD8 Absolute CD3 Count % CD4 Cells Absolute CD4 Count % CD8 Cells HIV-1 RNA PCR copies/ml HIV-1 RNA (PCR) log 03/21/18 03/21/18 03/21/18 05:15 05:23 08:25 WBC RBC Hgb 9.0 L Hct 28.1 L D RDW Plt Count Lymph % (Auto) Lymph # Seg Neutrophils % Seg Neuts % (Manual) Lymphocytes % (Manual) Monocytes % (Manual) Seg Neutrophils # Seg Neutrophils # Man Abs Lymphs (Manual) Lymphocytes # (Manual) Monocytes # (Manual) PT INR APTT Fibrinogen POC ABG pH POC ABG pCO2 POC ABG pO2 VBG pH Sodium Potassium Chloride Carbon Dioxide BUN Creatinine Glucose POC Glucose 159 H Lactic Acid Calcium Phosphorus Magnesium 1.60 L Iron Ferritin Total Bilirubin Direct Bilirubin Alkaline Phosphatase Lactate Dehydrogenase Total Creatine Kinase NT-Pro-B Natriuret Pep Total Protein Albumin Triglycerides Vitamin B12 Folate Urine WBC (Auto) Urine Creatinine Urine Total Protein Complement C3 Lymph Enumerat CD4/CD8 Absolute CD3 Count % CD4 Cells Absolute CD4 Count % CD8 Cells HIV-1 RNA PCR copies/ml HIV-1 RNA (PCR) log
[2018-03-21] MEDS: SENOKOT S PO SCH ×2 (12:44→23:20)
--- NOTE | 2018-03-21 16:47 | Progress Note ---
Assessment and Plan Assessment and plan: 33 yo with HIV infection. He initially presented with nausea, vomiting, general weakness and chills for 2 days. He was getting weaker, no Urine output therefore came to ED for evaluation. In ED, labs show acute kidney injury with metabolic acidosis thrombocytopenia. He was Sepic, hypotensive. 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 He received platelet transfusion and steroids after which she improved * He suffered a TIA, which resolved with IV fluids, nephrotoxins are being avoided, his electrolytes have been repleted. He was medically treated for hyperkalemia at some point but then now became hypokalemic and received potassium supplements today * The patient is HIV positive he stopped taking his medications over 6 years ago, management per infectious disease, on prophylaxis antibiotics for opportunistic organisms * The patient had worsening respiratory failure, has been on ventilator since 03/12/2018. He then went on to have bronchoscopy, BAL culture grew MRSA, patient was started on vancomycin on 03/21/18, ID managing * At this point the patient is being weaned off ventilator per pulmonology, k repleted today Diagnoses PNA due to MRSA Septic shock/Haemophilus hemolyticus bacteremia ITP, Thrombocytopenia, stable and improving, Acute hypoxic respiratory failure on MV >96 hours, intubated since 03/12/18 hyperkalemia, then later developed hypokalemia HIV/AIDs SCOTT-ATN Hyponatremia Hypoglycemia. Coagulopathy, Acute toxic metabolic encephalpathy Critical care time 35 minutes The patient does not want his HIV status being discussed with his family. History Interval history: less agitated, on sedation No fevers, no seizures no vomiting Hospitalist Physical - Physical exam Narrative exam: General.: Appears well, no distress, nontoxic HEENT: Moist mucous membranes, extraocular muscles intact, no lymphadenopathy Neck: supple Cardiac: S1-S2 heard Lungs: Ventilated breath sounds Abdomen: soft , nontender, nondistended, bowel sounds positive Extremities: no edema clubbing or cyanosis Skin: no rash or lesions Neurologic: Intubated and sedated - Constitutional Vitals: Temp Pulse Resp BP Pulse Ox 98.9 F 89 24 121/75 98 03/21/18 12:00 03/21/18 16:00 03/21/18 15:45 03/21/18 16:00 03/21/18 16:00 General appearance: Present: cachectic, other (chronically ill-appearing) Results - Labs CBC & Chem 7: 03/21/18 08:25 03/21/18 05:15 Labs: Laboratory Last Values WBC 10.9 K/mm3 (4.5-11.0) 03/21/18 05:15 RBC 2.37 M/mm3 (3.65-5.03) L 03/21/18 05:15 Hgb 9.0 gm/dl (11.8-15.2) L 03/21/18 08:25 Hct 28.1 % (35.5-45.6) L D 03/21/18 08:25 MCV 90 fl (84-94) 03/21/18 05:15 MCH 31 pg (28-32) 03/21/18 05:15 MCHC 34 % (32-34) 03/21/18 05:15 RDW 14.3 % (13.2-15.2) 03/21/18 05:15 Plt Count 171 K/mm3 (140-440) 03/21/18 05:15 Lymph % (Auto) 8.9 % (13.4-35.0) L 03/21/18 05:15 [place] % (Auto) 7.1 % (0.0-7.3) 03/21/18 05:15 Eos % (Auto) 1.4 % (0.0-4.3) 03/21/18 05:15 Baso % (Auto) 0.5 % (0.0-1.8) 03/21/18 05:15 Lymph # 1.0 K/mm3 (1.2-5.4) L 03/21/18 05:15 [place] # 0.8 K/mm3 (0.0-0.8) 03/21/18 05:15 Eos # 0.1 K/mm3 (0.0-0.4) 03/21/18 05:15 Baso # 0.1 K/mm3 (0.0-0.1) 03/21/18 05:15 Add Manual Diff Complete 03/20/18 04:00 Total Counted 100 03/20/18 04:00 Seg Neutrophils % 82.1 % (40.0-70.0) H 03/21/18 05:15 Seg Neuts % (Manual) 94.0 % (40.0-70.0) H 03/20/18 04:00 Band Neutrophils % 0 % 03/20/18 04:00 Lymphocytes % (Manual) 4.0 % (13.4-35.0) L 03/20/18 04:00 Reactive Lymphs % (Man) 0 % 03/20/18 04:00 Monocytes % (Manual) 2.0 % (0.0-7.3) 03/20/18 04:00 Eosinophils % (Manual) 0 % (0.0-4.3) 03/20/18 04:00 Basophils % (Manual) 0 % (0.0-1.8) 03/20/18 04:00 Metamyelocytes % 0 % 03/20/18 04:00 Myelocytes % 0 % 03/20/18 04:00 Promyelocytes % 0 % 03/20/18 04:00 Blast Cells % 0 % 03/20/18 04:00 Nucleated RBC % Not Reportable 03/20/18 04:00 Seg Neutrophils # 8.9 K/mm3 (1.8-7.7) H 03/21/18 05:15 Seg Neutrophils # Man 17.9 K/mm3 (1.8-7.7) H 03/20/18 04:00 Band Neutrophils # 0.0 K/mm3 03/20/18 04:00 Abs Lymphs (Manual) 779 cells/uL (850-3900) L 03/10/18 18:15 Lymphocytes # (Manual) 0.8 K/mm3 (1.2-5.4) L 03/20/18 04:00 Abs React Lymphs (Man) 0.0 K/mm3 03/20/18 04:00 Monocytes # (Manual) 0.4 K/mm3 (0.0-0.8) 03/20/18 04:00 Eosinophils # (Manual) 0.0 K/mm3 (0.0-0.4) 03/20/18 04:00 Basophils # (Manual) 0.0 K/mm3 (0.0-0.1) 03/20/18 04:00 Metamyelocytes # 0.0 K/mm3 03/20/18 04:00 Myelocytes # 0.0 K/mm3 03/20/18 04:00 Promyelocytes # 0.0 K/mm3 03/20/18 04:00 Blast Cells # 0.0 K/mm3 03/20/18 04:00 Pathologist Review 03/12/18 06:29 WBC Morphology Not Reportable 03/20/18 04:00 Hypersegmented Neuts Not Reportable 03/20/18 04:00 Hyposegmented Neuts Not Reportable 03/20/18 04:00 Hypogranular Neuts Not Reportable 03/20/18 04:00 Smudge Cells Not Reportable 03/20/18 04:00 Toxic Granulation Not Reportable 03/20/18 04:00 Toxic Vacuolation Not Reportable 03/20/18 04:00 Dohle Bodies Not Reportable 03/20/18 04:00 Pelger-Huet Anomaly Not Reportable 03/20/18 04:00 Kamar Rods Not Reportable 03/20/18 04:00 Platelet Estimate Consistent w auto 03/20/18 04:00 Clumped Platelets Not Reportable 03/20/18 04:00 Plt Clumps, EDTA Not Reportable 03/20/18 04:00 Large Platelets Not Reportable 03/20/18 04:00 Giant Platelets Not Reportable 03/20/18 04:00 Platelet Satelliting Not Reportable 03/20/18 04:00 Plt Morphology Comment Not Reportable 03/20/18 04:00 RBC Morphology Not Reportable 03/20/18 04:00 Dimorphic RBCs Not Reportable 03/20/18 04:00 Polychromasia Not Reportable 03/20/18 04:00 Hypochromasia Not Reportable 03/20/18 04:00 Poikilocytosis Not Reportable 03/20/18 04:00 Anisocytosis 1+ 03/20/18 04:00 Microcytosis Not Reportable 03/20/18 04:00 Macrocytosis Not Reportable 03/20/18 04:00 Spherocytes Not Reportable 03/20/18 04:00 Pappenheimer Bodies Not Reportable 03/20/18 04:00 Sickle Cells Not Reportable 03/20/18 04:00 Target Cells Not Reportable 03/20/18 04:00 Tear Drop Cells Not Reportable 03/20/18 04:00 Ovalocytes Not Reportable 03/20/18 04:00 Stomatocytes Rare 03/14/18 06:00 Helmet Cells Not Reportable 03/20/18 04:00 Barnes-Culpeper Bodies Not Reportable 03/20/18 04:00 Ellenton Rings Not Reportable 03/20/18 04:00 Lyssa Cells Not Reportable 03/20/18 04:00 Bite Cells Not Reportable 03/20/18 04:00 Crenated Cell Not Reportable 03/20/18 04:00 Elliptocytes Not Reportable 03/20/18 04:00 Acanthocytes (Spur) Not Reportable 03/20/18 04:00 Rouleaux Not Reportable 03/20/18 04:00 Hemoglobin C Crystals Not Reportable 03/20/18 04:00 Schistocytes Not Reportable 03/20/18 04:00 Malaria parasites Not Reportable 03/20/18 04:00 Jose Bodies Not Reportable 03/20/18 04:00 Hem Pathologist Commnt No 03/20/18 04:00 PT 17.2 Sec. (12.2-14.9) H 03/10/18 18:15 INR 1.36 (0.87-1.13) H 03/10/18 18:15 APTT 38.5 Sec. (24.2-36.6) H 03/10/18 18:15 Fibrinogen 852 mg/dl (211-480) H 03/10/18 18:15 POC ABG pH 7.357 (7.35-7.45) 03/21/18 13:39 POC ABG pCO2 50.9 (35-45) H 03/21/18 13:39 POC ABG pO2 60 (80-105) L 03/21/18 13:39 POC ABG HCO3 28.6 03/21/18 13:39 POC ABG Total CO2 30 03/21/18 13:39 POC ABG O2 Sat 89 03/21/18 13:39 POC ABG Base Excess 3 03/21/18 13:39 VBG pH 7.297 (7.320-7.420) L 03/09/18 07:00 FiO2 45 % 03/21/18 13:39 Sodium 145 mmol/L (137-145) 03/21/18 05:15 Potassium 3.0 mmol/L (3.6-5.0) L D 03/21/18 05:15 Chloride 117.5 mmol/L (98-107) H 03/21/18 05:15 Carbon Dioxide 21 mmol/L (22-30) L 03/21/18 05:15 Anion Gap 10 mmol/L 03/21/18 05:15 BUN 21 mg/dL (9-20) H 03/21/18 05:15 Creatinine 0.5 mg/dL (0.8-1.5) L 03/21/18 05:15 Estimated GFR > 60 ml/min 03/21/18 05:15 BUN/Creatinine Ratio 42 % 03/21/18 05:15 Glucose 118 mg/dL (75-100) H 03/21/18 05:15 POC Glucose 177 (70-105) H 03/21/18 12:27 Osmolality 256 Mosm/kg 03/14/18 07:00 Lactic Acid 4.10 mmol/L (0.7-2.0) H* 03/10/18 01:00 Uric Acid 3.5 mg/dL (3.5-7.6) 03/17/18 04:25 Calcium 6.0 mg/dL (8.4-10.2) L D 03/21/18 05:15 Phosphorus 1.90 mg/dL (2.5-4.5) L D 03/21/18 05:15 Magnesium 1.60 mg/dL (1.7-2.3) L 03/21/18 05:15 Iron 42 ug/dL (49-181) L 03/14/18 07:00 TIBC 262 mcg/dL (250-450) 03/14/18 07:00 Ferritin 532.4 ng/mL (13.0-400.0) H 03/14/18 07:00 Total Bilirubin 2.30 mg/dL (0.1-1.2) H 03/12/18 06:29 Direct Bilirubin 1.5 mg/dL (0-0.2) H 03/12/18 06:29 Indirect Bilirubin 0.8 mg/dL 03/12/18 06:29 AST 33 units/L (5-40) 03/12/18 06:29 ALT 48 units/L (7-56) 03/12/18 06:29 Alkaline Phosphatase 111 units/L (35-129) 03/12/18 06:29 Lactate Dehydrogenase 232 units/L (91-180) H 03/17/18 04:25 Total Creatine Kinase 33 units/L (55-170) L 03/17/18 04:25 NT-Pro-B Natriuret Pep 14601 pg/mL (0-450) H 03/10/18 11:16 Total Protein 6.2 g/dL (6.3-8.2) L 03/12/18 06:29 Albumin 3.1 g/dL (3.9-5) L 03/12/18 06:29 Albumin/Globulin Ratio 1.0 % 03/12/18 06:29 Triglycerides 177 mg/dL (2-149) H 03/19/18 06:00 Vitamin B12 1825 pg/mL (211-911) H 03/14/18 07:00 Folate 6.29 ng/mL (7.3-26.0) L 03/14/18 07:00 Urine Color Red (Yellow) 03/10/18 06:00 Urine Turbidity Cloudy (Clear) 03/10/18 06:00 Urine pH 5.0 (5.0-7.0) 03/10/18 06:00 Ur Specific Printer 1.009 (1.003-1.030) 03/10/18 06:00 Urine Protein 100 mg/dl mg/dL (Negative) 03/10/18 06:00 Urine Glucose (UA) Neg mg/dL (Negative) 03/10/18 06:00 Urine Ketones Neg mg/dL (Negative) 03/10/18 06:00 Urine Blood Lg (Negative) 03/10/18 06:00 Urine Nitrite Neg (Negative) 03/10/18 06:00 Urine Bilirubin Neg (Negative) 03/10/18 06:00 Urine Urobilinogen < 2.0 mg/dL (<2.0) 03/10/18 06:00 Ur Leukocyte Esterase Neg (Negative) 03/10/18 06:00 Urine WBC (Auto) 32.0 /HPF (0.0-6.0) H 03/10/18 06:00 Urine RBC (Auto) > 182.0 /HPF (0.0-6.0) 03/10/18 06:00 U Epithel Cells (Auto) 5.0 /HPF (0-13.0) 03/09/18 14:39 Urine Bacteria (Auto) 2+ /HPF (Negative) 03/10/18 06:00 Urine WBC Clumps Few /HPF 03/09/18 14:39 Amorphous Crystals 3+ 03/10/18 06:00 Granular Casts 29 /LPF 03/10/18 06:00 Urine Creatinine 210.7 mg/dL (0.1-20.0) H 03/09/18 14:39 Protein/Creatinin Ratio 3.89 03/09/18 14:39 Urine Sodium 81 mmol/L 03/14/18 18:50 Urine Total Protein 820 mg/dL (5-11.8) H 03/09/18 14:39 Urine Opiates Screen Presumptive negative 03/16/18 Unknown Urine Methadone Screen Presumptive negative 03/16/18 Unknown Ur Barbiturates Screen Presumptive negative 03/16/18 Unknown Ur Phencyclidine Scrn Presumptive negative 03/16/18 Unknown Ur Amphetamines Screen Presumptive negative 03/16/18 Unknown U Benzodiazepines Scrn Presumptive negative 03/16/18 Unknown Urine Cocaine Screen Presumptive negative 03/16/18 Unknown U Marijuana (THC) Screen Presumptive positive 03/16/18 Unknown Drugs of Abuse Note Disclamer 03/16/18 Unknown FELICIA Screen Negative (Negative) 03/10/18 11:16 Proteinase 3 (PR3) Ab <1.0 AI (<1.0) 03/10/18 11:16 Myeloperoxidase Ab <1.0 AI (<1.0) 03/10/18 11:16 Glomerular Base Mem IgG See scanned result 03/10/18 11:16 Complement C3 83 mg/dL (82-185) 03/10/18 11:16 Complement C4 30 mg/dL (15-53) 03/10/18 11:16 Lymph Enumerat CD4/CD8 0.56 (0.86-5.00) L 03/10/18 18:15 % CD3 Cells 67 % (57-85) 03/10/18 18:15 Absolute CD3 Count 524 cells/uL (840-3060) L 03/10/18 18:15 % CD4 Cells 24 % (30-61) L 03/10/18 18:15 Absolute CD4 Count 194 cells/uL (490-1740) L 03/10/18 18:15 % CD8 Cells 43 % (12-42) H 03/10/18 18:15 Absolute CD8 Count 344 cells/uL (180-1170) 03/10/18 18:15 % CD19 Cells 25 % (6-29) 03/10/18 18:15 Absolute CD19 Count 188 cells/uL (110-660) 03/10/18 18:15 Hepatitis A IgM Ab Non-reactive (NonReactive) 03/09/18 20:39 Hep Bs Antigen Non-reactive (Negative) 03/09/18 20:39 Hep B Core IgM Ab Non-reactive (NonReactive) 03/09/18 20:39 Hepatitis C Antibody Non-reactive (NonReactive) 03/09/18 20:39 HIV-1 Antibody See scanned result 03/09/18 20:39 HIV-1 RNA PCR copies/ml 54436 Copies/mL H 03/10/18 18:15 HIV-1 RNA (PCR) log 4.71 Log cps/mL H 03/10/18 18:15 HIV-2 Ab (Immunoblot) See scanned result 03/09/18 20:39 HIV 1&2 Antibody Rapid Reactive (Non React) 03/09/18 20:39 HIV P24 Antigen Non react (Non React) 03/09/18 20:39 Influenza A (Rapid) Negative (Negative) 03/09/18 Unknown Influenza B (Rapid) Negative (Negative) 03/09/18 Unknown Schistocytes Smear Rare 03/10/18 11:16 Miscellaneous Test Flexitest 1 03/12/18 16:45 Blood Type O POSITIVE 03/09/18 12:36 Antibody Screen Negative 03/09/18 12:36 Nutrition/Malnutrition Assess - Dietary Evaluation Nutrition/Malnutrition Findings: Nutrition Notes Start: 03/12/18 12:51 Freq: Status: Active Protocol: Document 03/19/18 14:34 OL (Rec: 03/19/18 14:38 OL [id number]) Nutrition Notes Initial or Follow up Reassessment Current Diagnosis Acute Kidney Injury Sepsis Respiratory Failure Other Pertinent Diagnosis HIV Current Diet NPO Labs/Tests Reviewed Pertinent Medications propofol at 16.32mL/hr ( provides 431 lipid kcal) Height 5 ft 11 in Weight 78.3 kg [place] Body Weight (lbs) 172.0 BMI 24.0 Subjective/Other Information Osmolite 1.5 infusing at 20mL/ hr. Spoke with pt.'s mother regarding TF; answered questions accordingly. TF restarted today per RN. Orders updated in chart. Burn Absent Trauma Absent #2 Nutrition Diagnosis Inadequate oral intake Diagnosis Progress(for reassessment Continues documentation) Is patient on ventilator? Yes Is Patient Ambulatory and/or Out of Bed No REE-([facility]-confined to bed) [phone] Calculation Used for Recommendations [facility] Additional Notes Protein needs are 94-157g (1.2 -2g/kg) Fluid needs are 1ml/kcal Nutrition Intervention Change Diet Order: TF Nutrition Support: Osmolite 1.5 at 60mL/hr. 200mL free water flush q4h Kcal 2,160 Protein (gm) 90 Fluid (mL) 1,097 Goal #1 TF to meet at least 80% protein and kcal needs Anticipated Discharge Needs: Unable to determine at this time Follow-Up By: 03/22/18 Additional Comments f/u: TF to goal
[2018-03-21] MEDS ORDERED: QUELICIN ONE (21:45)
--- NOTE | 2018-03-21 22:12 | Event Note ---
Date: 03/21/18 (Re-intubation) Received call at 2142 from ICU with concern for dislodged ETT in patient with hypoxic respiratory failure. Arrived 2143 and found patient to be hypoxic to 70s, tachycardic and hypertensive, large air leak noted on ventilator. RT and RN at bedside. Sedation infusing, no pressors, Tube feeds turned off at arrival. Patient coughing but not responsive or cooperative. Recent K+ 3.0. Patient sedated with propofol 100mg IV bolus and paralyzed with succinylcholine 120mg IV. DL with MAC4 blade revealed moderate secretions and ETT cuff in the posterior pharynx. Cords only partially visualized. ETT removed, oropharynx sunctions and re-intubated with new 7.0 oETT. Positive CO2 color change and equal breath sounds bilaterally @ 24cm at the teeth. SpO2 improved to 100% within seconds. Bite block inserted and placed back on ventilator by RT. CXR ordered by ICU team. HD stable throughout.
--- NOTE | 2018-03-21 23:24 | XRay Report ---
FINAL REPORT PROCEDURE: XR CHEST 1V AP TECHNIQUE: Chest radiograph anteroposterior view. CPT 52957 HISTORY: Reintubation COMPARISON: 03/18/2018 FINDINGS: Heart: Normal. Mediastinum/Vessels: Normal. Lungs/Pleural space: There is a developing infiltrate in the right lower lung. No effusion or pneumot horax. Bony thorax: No acute osseous abnormality. Life support devices: The endotracheal tube ends 4 centimeters above the jayden. A nasogastric tube e nds below the hemidiaphragms. Right PICC catheter ends in the SVC. IMPRESSION: Developing right lower lung infiltrate. Tubes and lines are properly positioned..
[2018-03-22] MEDS: HumaLOG SUB-Q SCH ×4 (00:31→17:50)
[2018-03-22] MEDS: DIPRIVAN 10 MG/ML 1,000 MG/100 ML BOTTLE IV SCH ×2 (04:36→09:21)
[2018-03-22] MEDS: VANCOMYCIN 1,250 MG in NACL 0.9% 250ML 250 ML IV SCH ×3 (06:13→21:10)
[2018-03-22] MEDS: BACTRIM DS PO SCH (09:44)
[2018-03-22] MEDS: DELTASONE PO SCH (09:44)
[2018-03-22] MEDS: FOLVITE PO SCH (09:44)
[2018-03-22] MEDS: PREVACID SOLUTAB FEEDTUBE SCH (09:45)
[2018-03-22] MEDS: SENOKOT S PO SCH (09:45)
[2018-03-22] MEDS ORDERED: LASIX ONE (09:57)
[2018-03-22] MEDS ORDERED: LASIX IV ONE (10:00)
[2018-03-22] MEDS ORDERED: LASIX PO ONE (10:00)
[2018-03-22] MEDS ORDERED: ATIVAN IV PRN (11:21)
--- NOTE | 2018-03-22 11:23 | Progress Note ---
Assessment and Plan 33 y/o male with thrombocytopenia, renal failure, and hypotension. 1. Mother now knows all diagnosis. 2. lasix 20mg IV x1 now 3. Will attempt extubation 4. Bipap ordered for PRN but will start with HFNC 5. May need some scheduled haldol if truly agitation post extubation. 6. Will add some PRN ativan therapy as well. CCT 31 minutes Subjective Date of service: 03/22/18 Principal diagnosis: ITP Interval history: Re intubated last night secondary to tube being dislodge. Reviewed Anesthesia note. Mother at bedside. Tolerating PSV with no difficulty. CXR stable. No evidence of severe edema. Objective Vital Signs - 12hr 03/21/18 03/21/18 03/21/18 23:30 23:32 23:45 Temperature Pulse Rate 98 H 90 107 H Pulse Rate [ From Monitor] Respiratory 24 24 Rate Blood Pressure 106/60 107/57 99/59 O2 Sat by Pulse 100 100 100 Oximetry 03/22/18 03/22/18 03/22/18 00:00 00:15 00:30 Temperature Pulse Rate 96 H 97 H 101 H Pulse Rate [ 119 H From Monitor] Respiratory 20 24 20 Rate Blood Pressure 104/56 111/58 112/65 O2 Sat by Pulse 100 100 100 Oximetry 03/22/18 03/22/18 03/22/18 00:45 01:00 01:15 Temperature Pulse Rate 103 H 102 H 114 H Pulse Rate [ From Monitor] Respiratory 22 12 18 Rate Blood Pressure 120/61 107/68 103/67 O2 Sat by Pulse 100 100 100 Oximetry 03/22/18 03/22/18 03/22/18 01:21 01:30 01:45 Temperature Pulse Rate 119 H 116 H 106 H Pulse Rate [ From Monitor] Respiratory 22 24 Rate Blood Pressure 106/75 115/67 O2 Sat by Pulse 100 100 Oximetry 03/22/18 03/22/18 03/22/18 02:00 02:15 02:30 Temperature Pulse Rate 107 H 108 H 115 H Pulse Rate [ From Monitor] Respiratory 24 24 19 Rate Blood Pressure 119/72 107/67 104/68 O2 Sat by Pulse 100 100 100 Oximetry 03/22/18 03/22/18 03/22/18 02:45 03:00 03:15 Temperature Pulse Rate 106 H 110 H 108 H Pulse Rate [ From Monitor] Respiratory 18 18 15 Rate Blood Pressure 110/61 104/71 107/61 O2 Sat by Pulse 100 100 100 Oximetry 03/22/18 03/22/18 03/22/18 03:30 03:31 03:46 Temperature 99.8 F H Pulse Rate 110 H 112 H Pulse Rate [ From Monitor] Respiratory 14 12 Rate Blood Pressure 103/70 115/72 O2 Sat by Pulse 100 100 Oximetry 03/22/18 03/22/18 03/22/18 04:00 04:15 04:30 Temperature Pulse Rate 109 H 99 H 105 H Pulse Rate [ 119 H From Monitor] Respiratory 20 21 24 Rate Blood Pressure 124/76 121/67 114/68 O2 Sat by Pulse 100 100 100 Oximetry 03/22/18 03/22/18 03/22/18 04:41 04:45 05:00 Temperature Pulse Rate 101 H 103 H 120 H Pulse Rate [ From Monitor] Respiratory 24 25 H Rate Blood Pressure 118/69 113/74 O2 Sat by Pulse 100 100 Oximetry 03/22/18 03/22/18 03/22/18 05:15 05:30 05:45 Temperature Pulse Rate 105 H 107 H 113 H Pulse Rate [ From Monitor] Respiratory 14 22 16 Rate Blood Pressure 120/72 124/76 128/71 O2 Sat by Pulse 100 100 100 Oximetry 03/22/18 03/22/18 03/22/18 06:00 06:15 06:30 Temperature Pulse Rate 127 H 102 H 112 H Pulse Rate [ From Monitor] Respiratory 15 20 16 Rate Blood Pressure 113/79 117/69 118/73 O2 Sat by Pulse 100 100 100 Oximetry 03/22/18 03/22/18 03/22/18 06:45 07:00 07:15 Temperature Pulse Rate 112 H 106 H 108 H Pulse Rate [ From Monitor] Respiratory 20 24 16 Rate Blood Pressure 129/73 120/69 122/73 O2 Sat by Pulse 100 100 100 Oximetry 03/22/18 03/22/18 03/22/18 07:30 07:45 08:00 Temperature 99.6 F Pulse Rate 108 H 100 H 112 H Pulse Rate [ 104 H From Monitor] Respiratory 24 24 21 Rate Blood Pressure 117/68 115/66 119/69 O2 Sat by Pulse 100 100 100 Oximetry 03/22/18 03/22/18 03/22/18 08:15 08:30 08:50 Temperature Pulse Rate 105 H 107 H 105 H Pulse Rate [ From Monitor] Respiratory 24 18 Rate Blood Pressure 120/73 120/72 119/71 O2 Sat by Pulse 100 100 100 Oximetry 03/22/18 09:03 Temperature Pulse Rate 107 H Pulse Rate [ From Monitor] Respiratory 18 Rate Blood Pressure 128/63 O2 Sat by Pulse 100 Oximetry Constitutional: no acute distress, other (on vent [id number] Eyes: non-icteric ENT: oropharynx dry, other (orally intubated and sedated) Neck: supple Effort: mildly labored Ascultation: Bilateral: clear, diminished breath sounds, rales (OCCASIONAL), rhonchi Percussion: Bilateral: not dull Cardiovascular: regular rate and rhythm, other (sinus tach) Gastrointestinal: normoactive bowel sounds, non-tender Integumentary: normal Extremities: no cyanosis, no edema, pink and warm Neurologic: unable to assess, other (RA SS -1) CBC and BMP: 03/21/18 08:25 03/21/18 05:15 ABG, PT/INR, D-dimer: ABG POC ABG pH 7.447 (7.35-7.45) 03/22/18 05:28 POC ABG pCO2 41.9 (35-45) 03/22/18 05:28 POC ABG pO2 155 (80-105) H 03/22/18 05:28 POC ABG HCO3 28.9 03/22/18 05:28 POC ABG Total CO2 30 03/22/18 05:28 POC ABG O2 Sat 99 03/22/18 05:28 PT/INR, D-dimer PT 17.2 Sec. (12.2-14.9) H 03/10/18 18:15 INR 1.36 (0.87-1.13) H 03/10/18 18:15 Abnormal lab findings: Abnormal Labs 03/09/18 03/09/18 03/09/18 07:00 07:00 07:00 WBC RBC Hgb Hct RDW 15.5 H Plt Count 25 L Lymph % (Auto) Lymph # Seg Neutrophils % Seg Neuts % (Manual) 90.0 H Lymphocytes % (Manual) 5.0 L Monocytes % (Manual) Seg Neutrophils # Seg Neutrophils # Man Abs Lymphs (Manual) Lymphocytes # (Manual) 0.4 L Monocytes # (Manual) PT 22.9 H INR 1.98 H APTT Fibrinogen POC ABG pH POC ABG pCO2 POC ABG pO2 VBG pH Sodium 135 L Potassium Chloride 90.8 L Carbon Dioxide 17 L BUN 45 H Creatinine 5.8 H Glucose 72 L POC Glucose Lactic Acid Calcium 7.6 L Phosphorus Magnesium Iron Ferritin Total Bilirubin Direct Bilirubin Alkaline Phosphatase 154 H Lactate Dehydrogenase Total Creatine Kinase NT-Pro-B Natriuret Pep Total Protein Albumin 3.6 L Triglycerides Vitamin B12 Folate Urine WBC (Auto) Urine Creatinine Urine Total Protein Complement C3 Lymph Enumerat CD4/CD8 Absolute CD3 Count % CD4 Cells Absolute CD4 Count % CD8 Cells HIV-1 RNA PCR copies/ml HIV-1 RNA (PCR) log 03/09/18 03/09/18 03/09/18 07:00 07:00 07:00 WBC RBC Hgb Hct RDW Plt Count Lymph % (Auto) Lymph # Seg Neutrophils % Seg Neuts % (Manual) Lymphocytes % (Manual) Monocytes % (Manual) Seg Neutrophils # Seg Neutrophils # Man Abs Lymphs (Manual) Lymphocytes # (Manual) Monocytes # (Manual) PT INR APTT Fibrinogen POC ABG pH POC ABG pCO2 POC ABG pO2 VBG pH 7.297 L Sodium Potassium Chloride Carbon Dioxide BUN Creatinine Glucose POC Glucose Lactic Acid 6.80 H* Calcium Phosphorus 5.40 H Magnesium 1.20 L Iron Ferritin Total Bilirubin Direct Bilirubin Alkaline Phosphatase Lactate Dehydrogenase Total Creatine Kinase 228 H NT-Pro-B Natriuret Pep Total Protein Albumin Triglycerides Vitamin B12 Folate Urine WBC (Auto) Urine Creatinine Urine Total Protein Complement C3 Lymph Enumerat CD4/CD8 Absolute CD3 Count % CD4 Cells Absolute CD4 Count % CD8 Cells HIV-1 RNA PCR copies/ml HIV-1 RNA (PCR) log 03/09/18 03/09/18 03/09/18 09:22 12:36 14:39 WBC RBC Hgb Hct RDW Plt Count Lymph % (Auto) Lymph # Seg Neutrophils % Seg Neuts % (Manual) Lymphocytes % (Manual) Monocytes % (Manual) Seg Neutrophils # Seg Neutrophils # Man Abs Lymphs (Manual) Lymphocytes # (Manual) Monocytes # (Manual) PT INR APTT Fibrinogen POC ABG pH POC ABG pCO2 POC ABG pO2 VBG pH Sodium Potassium Chloride Carbon Dioxide BUN Creatinine Glucose POC Glucose Lactic Acid 5.90 H* 8.30 H* Calcium Phosphorus Magnesium Iron Ferritin Total Bilirubin Direct Bilirubin Alkaline Phosphatase Lactate Dehydrogenase Total Creatine Kinase NT-Pro-B Natriuret Pep Total Protein Albumin Triglycerides Vitamin B12 Folate Urine WBC (Auto) 86.0 H Urine Creatinine Urine Total Protein Complement C3 Lymph Enumerat CD4/CD8 Absolute CD3 Count % CD4 Cells Absolute CD4 Count % CD8 Cells HIV-1 RNA PCR copies/ml HIV-1 RNA (PCR) log 03/09/18 03/09/18 03/09/18 14:39 14:39 15:12 WBC RBC Hgb Hct RDW Plt Count Lymph % (Auto) Lymph # Seg Neutrophils % Seg Neuts % (Manual) Lymphocytes % (Manual) Monocytes % (Manual) Seg Neutrophils # Seg Neutrophils # Man Abs Lymphs (Manual) Lymphocytes # (Manual) Monocytes # (Manual) PT INR APTT Fibrinogen POC ABG pH POC ABG pCO2 POC ABG pO2 VBG pH Sodium Potassium Chloride Carbon Dioxide BUN Creatinine Glucose POC Glucose Lactic Acid 5.90 H* Calcium Phosphorus Magnesium Iron Ferritin Total Bilirubin Direct Bilirubin Alkaline Phosphatase Lactate Dehydrogenase Total Creatine Kinase NT-Pro-B Natriuret Pep Total Protein Albumin Triglycerides Vitamin B12 Folate Urine WBC (Auto) Urine Creatinine 217.1 H 210.7 H Urine Total Protein 820 H Complement C3 Lymph Enumerat CD4/CD8 Absolute CD3 Count % CD4 Cells Absolute CD4 Count % CD8 Cells HIV-1 RNA PCR copies/ml HIV-1 RNA (PCR) log 03/09/18 03/09/18 03/09/18 15:53 18:20 20:39 WBC RBC Hgb Hct RDW Plt Count Lymph % (Auto) Lymph # Seg Neutrophils % Seg Neuts % (Manual) Lymphocytes % (Manual) Monocytes % (Manual) Seg Neutrophils # Seg Neutrophils # Man Abs Lymphs (Manual) Lymphocytes # (Manual) Monocytes # (Manual) PT INR APTT Fibrinogen POC ABG pH POC ABG pCO2 POC ABG pO2 VBG pH Sodium Potassium Chloride Carbon Dioxide BUN Creatinine Glucose POC Glucose 56 L Lactic Acid 5.10 H* 4.40 H* Calcium Phosphorus Magnesium Iron Ferritin Total Bilirubin Direct Bilirubin Alkaline Phosphatase Lactate Dehydrogenase Total Creatine Kinase NT-Pro-B Natriuret Pep Total Protein Albumin Triglycerides Vitamin B12 Folate Urine WBC (Auto) Urine Creatinine Urine Total Protein Complement C3 Lymph Enumerat CD4/CD8 Absolute CD3 Count % CD4 Cells Absolute CD4 Count % CD8 Cells HIV-1 RNA PCR copies/ml HIV-1 RNA (PCR) log 03/09/18 03/09/18 03/09/18 20:39 21:33 23:08 WBC RBC Hgb Hct RDW Plt Count Lymph % (Auto) Lymph # Seg Neutrophils % Seg Neuts % (Manual) Lymphocytes % (Manual) Monocytes % (Manual) Seg Neutrophils # Seg Neutrophils # Man Abs Lymphs (Manual) Lymphocytes # (Manual) Monocytes # (Manual) PT INR APTT Fibrinogen POC ABG pH POC ABG pCO2 POC ABG pO2 VBG pH Sodium Potassium Chloride Carbon Dioxide BUN Creatinine Glucose POC Glucose Lactic Acid 4.90 H* 4.10 H* Calcium Phosphorus Magnesium Iron Ferritin Total Bilirubin Direct Bilirubin Alkaline Phosphatase Lactate Dehydrogenase Total Creatine Kinase NT-Pro-B Natriuret Pep Total Protein Albumin Triglycerides Vitamin B12 Folate Urine WBC (Auto) Urine Creatinine Urine Total Protein Complement C3 77 L Lymph Enumerat CD4/CD8 Absolute CD3 Count % CD4 Cells Absolute CD4 Count % CD8 Cells HIV-1 RNA PCR copies/ml HIV-1 RNA (PCR) log 03/10/18 03/10/18 03/10/18 01:00 04:40 04:40 WBC 11.8 H RBC Hgb 11.7 L Hct RDW Plt Count 8 L* Lymph % (Auto) Lymph # Seg Neutrophils % Seg Neuts % (Manual) 93.0 H Lymphocytes % (Manual) 4.0 L Monocytes % (Manual) Seg Neutrophils # Seg Neutrophils # Man 11.0 H Abs Lymphs (Manual) Lymphocytes # (Manual) 0.5 L Monocytes # (Manual) PT INR APTT Fibrinogen POC ABG pH POC ABG pCO2 POC ABG pO2 VBG pH Sodium 136 L Potassium Chloride 96.6 L Carbon Dioxide 21 L BUN 62 H Creatinine 4.9 H Glucose POC Glucose Lactic Acid 4.10 H* Calcium 6.2 L D Phosphorus Magnesium Iron Ferritin Total Bilirubin Direct Bilirubin Alkaline Phosphatase Lactate Dehydrogenase Total Creatine Kinase NT-Pro-B Natriuret Pep Total Protein Albumin Triglycerides Vitamin B12 Folate Urine WBC (Auto) Urine Creatinine Urine Total Protein Complement C3 Lymph Enumerat CD4/CD8 Absolute CD3 Count % CD4 Cells Absolute CD4 Count % CD8 Cells HIV-1 RNA PCR copies/ml HIV-1 RNA (PCR) log 03/10/18 03/10/18 03/10/18 05:32 06:00 09:10 WBC RBC Hgb Hct RDW Plt Count Lymph % (Auto) Lymph # Seg Neutrophils % Seg Neuts % (Manual) Lymphocytes % (Manual) Monocytes % (Manual) Seg Neutrophils # Seg Neutrophils # Man Abs Lymphs (Manual) Lymphocytes # (Manual) Monocytes # (Manual) PT INR APTT Fibrinogen POC ABG pH 7.254 L POC ABG pCO2 47.8 H POC ABG pO2 59 L VBG pH Sodium Potassium Chloride Carbon Dioxide BUN Creatinine Glucose POC Glucose 56 L Lactic Acid Calcium Phosphorus Magnesium Iron Ferritin Total Bilirubin Direct Bilirubin Alkaline Phosphatase Lactate Dehydrogenase Total Creatine Kinase NT-Pro-B Natriuret Pep Total Protein Albumin Triglycerides Vitamin B12 Folate Urine WBC (Auto) 32.0 H Urine Creatinine Urine Total Protein Complement C3 Lymph Enumerat CD4/CD8 Absolute CD3 Count % CD4 Cells Absolute CD4 Count % CD8 Cells HIV-1 RNA PCR copies/ml HIV-1 RNA (PCR) log 03/10/18 03/10/18 03/10/18 09:14 11:16 11:16 WBC RBC Hgb Hct RDW Plt Count Lymph % (Auto) Lymph # Seg Neutrophils % Seg Neuts % (Manual) Lymphocytes % (Manual) Monocytes % (Manual) Seg Neutrophils # Seg Neutrophils # Man Abs Lymphs (Manual) Lymphocytes # (Manual) Monocytes # (Manual) PT INR APTT Fibrinogen POC ABG pH 7.266 L POC ABG pCO2 POC ABG pO2 VBG pH Sodium Potassium Chloride Carbon Dioxide BUN Creatinine Glucose POC Glucose Lactic Acid Calcium Phosphorus Magnesium Iron Ferritin Total Bilirubin Direct Bilirubin Alkaline Phosphatase Lactate Dehydrogenase 338 H Total Creatine Kinase 404 H NT-Pro-B Natriuret Pep 16747 H Total Protein Albumin Triglycerides Vitamin B12 Folate Urine WBC (Auto) Urine Creatinine Urine Total Protein Complement C3 Lymph Enumerat CD4/CD8 Absolute CD3 Count % CD4 Cells Absolute CD4 Count % CD8 Cells HIV-1 RNA PCR copies/ml HIV-1 RNA (PCR) log 03/10/18 03/10/18 03/10/18 11:51 18:15 18:15 WBC RBC Hgb Hct RDW Plt Count Lymph % (Auto) Lymph # Seg Neutrophils % Seg Neuts % (Manual) Lymphocytes % (Manual) Monocytes % (Manual) Seg Neutrophils # Seg Neutrophils # Man Abs Lymphs (Manual) Lymphocytes # (Manual) Monocytes # (Manual) PT 17.2 H 17.0 H INR 1.36 H 1.34 H APTT 38.5 H Fibrinogen 852 H POC ABG pH POC ABG pCO2 POC ABG pO2 VBG pH Sodium Potassium Chloride Carbon Dioxide BUN Creatinine Glucose POC Glucose 109 H Lactic Acid Calcium Phosphorus Magnesium Iron Ferritin Total Bilirubin Direct Bilirubin Alkaline Phosphatase Lactate Dehydrogenase Total Creatine Kinase NT-Pro-B Natriuret Pep Total Protein Albumin Triglycerides Vitamin B12 Folate Urine WBC (Auto) Urine Creatinine Urine Total Protein Complement C3 Lymph Enumerat CD4/CD8 Absolute CD3 Count % CD4 Cells Absolute CD4 Count % CD8 Cells HIV-1 RNA PCR copies/ml HIV-1 RNA (PCR) log 03/10/18 03/10/18 03/10/18 18:15 18:15 19:45 WBC RBC Hgb Hct RDW Plt Count Lymph % (Auto) Lymph # Seg Neutrophils % Seg Neuts % (Manual) Lymphocytes % (Manual) Monocytes % (Manual) Seg Neutrophils # Seg Neutrophils # Man Abs Lymphs (Manual) 779 L Lymphocytes # (Manual) Monocytes # (Manual) PT INR APTT Fibrinogen POC ABG pH POC ABG pCO2 POC ABG pO2 VBG pH Sodium Potassium Chloride Carbon Dioxide BUN Creatinine Glucose POC Glucose 136 H Lactic Acid Calcium Phosphorus Magnesium Iron Ferritin Total Bilirubin Direct Bilirubin Alkaline Phosphatase Lactate Dehydrogenase Total Creatine Kinase NT-Pro-B Natriuret Pep Total Protein Albumin Triglycerides Vitamin B12 Folate Urine WBC (Auto) Urine Creatinine Urine Total Protein Complement C3 Lymph Enumerat CD4/CD8 0.56 L Absolute CD3 Count 524 L % CD4 Cells 24 L Absolute CD4 Count 194 L % CD8 Cells 43 H HIV-1 RNA PCR copies/ml 60154 H HIV-1 RNA (PCR) log 4.71 H 03/10/18 03/10/18 03/10/18 20:40 22:07 23:06 WBC RBC Hgb Hct RDW Plt Count Lymph % (Auto) Lymph # Seg Neutrophils % Seg Neuts % (Manual) Lymphocytes % (Manual) Monocytes % (Manual) Seg Neutrophils # Seg Neutrophils # Man Abs Lymphs (Manual) Lymphocytes # (Manual) Monocytes # (Manual) PT INR APTT Fibrinogen POC ABG pH POC ABG pCO2 POC ABG pO2 VBG pH Sodium Potassium Chloride Carbon Dioxide BUN Creatinine Glucose POC Glucose 135 H 135 H 133 H Lactic Acid Calcium Phosphorus Magnesium Iron Ferritin Total Bilirubin Direct Bilirubin Alkaline Phosphatase Lactate Dehydrogenase Total Creatine Kinase NT-Pro-B Natriuret Pep Total Protein Albumin Triglycerides Vitamin B12 Folate Urine WBC (Auto) Urine Creatinine Urine Total Protein Complement C3 Lymph Enumerat CD4/CD8 Absolute CD3 Count % CD4 Cells Absolute CD4 Count % CD8 Cells HIV-1 RNA PCR copies/ml HIV-1 RNA (PCR) log 03/11/18 03/11/18 03/11/18 00:07 02:01 03:10 WBC RBC Hgb Hct RDW Plt Count Lymph % (Auto) Lymph # Seg Neutrophils % Seg Neuts % (Manual) Lymphocytes % (Manual) Monocytes % (Manual) Seg Neutrophils # Seg Neutrophils # Man Abs Lymphs (Manual) Lymphocytes # (Manual) Monocytes # (Manual) PT INR APTT Fibrinogen POC ABG pH POC ABG pCO2 POC ABG pO2 VBG pH Sodium Potassium Chloride Carbon Dioxide BUN Creatinine Glucose POC Glucose 148 H 161 H 189 H Lactic Acid Calcium Phosphorus Magnesium Iron Ferritin Total Bilirubin Direct Bilirubin Alkaline Phosphatase Lactate Dehydrogenase Total Creatine Kinase NT-Pro-B Natriuret Pep Total Protein Albumin Triglycerides Vitamin B12 Folate Urine WBC (Auto) Urine Creatinine Urine Total Protein Complement C3 Lymph Enumerat CD4/CD8 Absolute CD3 Count % CD4 Cells Absolute CD4 Count % CD8 Cells HIV-1 RNA PCR copies/ml HIV-1 RNA (PCR) log 03/11/18 03/11/18 03/11/18 04:12 04:50 04:50 WBC 12.8 H RBC Hgb 10.9 L Hct 32.5 L RDW 15.3 H Plt Count 17 L* D Lymph % (Auto) Lymph # Seg Neutrophils % Seg Neuts % (Manual) 96.0 H Lymphocytes % (Manual) 2.0 L Monocytes % (Manual) Seg Neutrophils # Seg Neutrophils # Man 12.3 H Abs Lymphs (Manual) Lymphocytes # (Manual) 0.3 L Monocytes # (Manual) PT INR APTT Fibrinogen POC ABG pH POC ABG pCO2 POC ABG pO2 VBG pH Sodium Potassium Chloride 94.2 L Carbon Dioxide BUN 62 H Creatinine 2.7 H Glucose 191 H POC Glucose 188 H Lactic Acid Calcium 7.9 L D Phosphorus Magnesium Iron Ferritin Total Bilirubin Direct Bilirubin Alkaline Phosphatase Lactate Dehydrogenase Total Creatine Kinase NT-Pro-B Natriuret Pep Total Protein Albumin Triglycerides Vitamin B12 Folate Urine WBC (Auto) Urine Creatinine Urine Total Protein Complement C3 Lymph Enumerat CD4/CD8 Absolute CD3 Count % CD4 Cells Absolute CD4 Count % CD8 Cells HIV-1 RNA PCR copies/ml HIV-1 RNA (PCR) log 03/11/18 03/11/18 03/11/18 05:30 05:33 07:47 WBC RBC Hgb Hct RDW Plt Count Lymph % (Auto) Lymph # Seg Neutrophils % Seg Neuts % (Manual) Lymphocytes % (Manual) Monocytes % (Manual) Seg Neutrophils # Seg Neutrophils # Man Abs Lymphs (Manual) Lymphocytes # (Manual) Monocytes # (Manual) PT INR APTT Fibrinogen POC ABG pH POC ABG pCO2 POC ABG pO2 58 L VBG pH Sodium Potassium Chloride Carbon Dioxide BUN Creatinine Glucose POC Glucose 187 H 151 H Lactic Acid Calcium Phosphorus Magnesium Iron Ferritin Total Bilirubin Direct Bilirubin Alkaline Phosphatase Lactate Dehydrogenase Total Creatine Kinase NT-Pro-B Natriuret Pep Total Protein Albumin Triglycerides Vitamin B12 Folate Urine WBC (Auto) Urine Creatinine Urine Total Protein Complement C3 Lymph Enumerat CD4/CD8 Absolute CD3 Count % CD4 Cells Absolute CD4 Count % CD8 Cells HIV-1 RNA PCR copies/ml HIV-1 RNA (PCR) log 03/11/18 03/11/18 03/11/18 12:11 13:18 14:26 WBC RBC Hgb Hct RDW Plt Count Lymph % (Auto) Lymph # Seg Neutrophils % Seg Neuts % (Manual) Lymphocytes % (Manual) Monocytes % (Manual) Seg Neutrophils # Seg Neutrophils # Man Abs Lymphs (Manual) Lymphocytes # (Manual) Monocytes # (Manual) PT INR APTT Fibrinogen POC ABG pH POC ABG pCO2 POC ABG pO2 VBG pH Sodium Potassium Chloride Carbon Dioxide BUN Creatinine Glucose POC Glucose 166 H 157 H 145 H Lactic Acid Calcium Phosphorus Magnesium Iron Ferritin Total Bilirubin Direct Bilirubin Alkaline Phosphatase Lactate Dehydrogenase Total Creatine Kinase NT-Pro-B Natriuret Pep Total Protein Albumin Triglycerides Vitamin B12 Folate Urine WBC (Auto) Urine Creatinine Urine Total Protein Complement C3 Lymph Enumerat CD4/CD8 Absolute CD3 Count % CD4 Cells Absolute CD4 Count % CD8 Cells HIV-1 RNA PCR copies/ml HIV-1 RNA (PCR) log 03/11/18 03/11/18 03/11/18 14:48 15:15 16:17 WBC 21.2 H RBC Hgb 11.0 L Hct 33.8 L RDW Plt Count 15 L* Lymph % (Auto) Lymph # Seg Neutrophils % Seg Neuts % (Manual) 92.0 H Lymphocytes % (Manual) 4.0 L Monocytes % (Manual) Seg Neutrophils # Seg Neutrophils # Man 19.5 H Abs Lymphs (Manual) Lymphocytes # (Manual) 0.8 L Monocytes # (Manual) PT INR APTT Fibrinogen POC ABG pH POC ABG pCO2 POC ABG pO2 VBG pH Sodium Potassium Chloride Carbon Dioxide BUN Creatinine Glucose POC Glucose 139 H 145 H Lactic Acid Calcium Phosphorus Magnesium Iron Ferritin Total Bilirubin Direct Bilirubin Alkaline Phosphatase Lactate Dehydrogenase Total Creatine Kinase NT-Pro-B Natriuret Pep Total Protein Albumin Triglycerides Vitamin B12 Folate Urine WBC (Auto) Urine Creatinine Urine Total Protein Complement C3 Lymph Enumerat CD4/CD8 Absolute CD3 Count % CD4 Cells Absolute CD4 Count % CD8 Cells HIV-1 RNA PCR copies/ml HIV-1 RNA (PCR) log 03/11/18 03/11/18 03/11/18 17:48 20:16 21:02 WBC RBC Hgb Hct RDW Plt Count Lymph % (Auto) Lymph # Seg Neutrophils % Seg Neuts % (Manual) Lymphocytes % (Manual) Monocytes % (Manual) Seg Neutrophils # Seg Neutrophils # Man Abs Lymphs (Manual) Lymphocytes # (Manual) Monocytes # (Manual) PT INR APTT Fibrinogen POC ABG pH POC ABG pCO2 POC ABG pO2 VBG pH Sodium Potassium Chloride Carbon Dioxide BUN Creatinine Glucose POC Glucose 142 H 158 H 146 H Lactic Acid Calcium Phosphorus Magnesium Iron Ferritin Total Bilirubin Direct Bilirubin Alkaline Phosphatase Lactate Dehydrogenase Total Creatine Kinase NT-Pro-B Natriuret Pep Total Protein Albumin Triglycerides Vitamin B12 Folate Urine WBC (Auto) Urine Creatinine Urine Total Protein Complement C3 Lymph Enumerat CD4/CD8 Absolute CD3 Count % CD4 Cells Absolute CD4 Count % CD8 Cells HIV-1 RNA PCR copies/ml HIV-1 RNA (PCR) log 03/11/18 03/12/18 03/12/18 23:14 00:54 06:19 WBC 29.6 H RBC Hgb 10.6 L Hct 31.3 L RDW Plt Count 51 L D Lymph % (Auto) Lymph # Seg Neutrophils % Seg Neuts % (Manual) Lymphocytes % (Manual) Monocytes % (Manual) Seg Neutrophils # Seg Neutrophils # Man Abs Lymphs (Manual) Lymphocytes # (Manual) Monocytes # (Manual) PT INR APTT Fibrinogen POC ABG pH POC ABG pCO2 POC ABG pO2 VBG pH Sodium Potassium Chloride Carbon Dioxide BUN Creatinine Glucose POC Glucose 168 H 185 H Lactic Acid Calcium Phosphorus Magnesium Iron Ferritin Total Bilirubin Direct Bilirubin Alkaline Phosphatase Lactate Dehydrogenase Total Creatine Kinase NT-Pro-B Natriuret Pep Total Protein Albumin Triglycerides Vitamin B12 Folate Urine WBC (Auto) Urine Creatinine Urine Total Protein Complement C3 Lymph Enumerat CD4/CD8 Absolute CD3 Count % CD4 Cells Absolute CD4 Count % CD8 Cells HIV-1 RNA PCR copies/ml HIV-1 RNA (PCR) log 03/12/18 03/12/18 03/12/18 06:29 06:29 06:29 WBC 32.7 H RBC Hgb 10.5 L Hct 31.7 L RDW 15.3 H Plt Count 34 L Lymph % (Auto) Lymph # Seg Neutrophils % Seg Neuts % (Manual) 81.5 H Lymphocytes % (Manual) 7.0 L Monocytes % (Manual) 7.5 H Seg Neutrophils # Seg Neutrophils # Man 26.7 H Abs Lymphs (Manual) Lymphocytes # (Manual) Monocytes # (Manual) 2.5 H PT INR APTT Fibrinogen POC ABG pH POC ABG pCO2 POC ABG pO2 VBG pH Sodium Potassium 3.4 L Chloride Carbon Dioxide BUN 69 H Creatinine 2.2 H Glucose 181 H POC Glucose Lactic Acid Calcium Phosphorus Magnesium Iron Ferritin Total Bilirubin 2.30 H Direct Bilirubin 1.5 H Alkaline Phosphatase Lactate Dehydrogenase Total Creatine Kinase NT-Pro-B Natriuret Pep Total Protein 6.2 L Albumin 3.1 L Triglycerides Vitamin B12 Folate Urine WBC (Auto) Urine Creatinine Urine Total Protein Complement C3 Lymph Enumerat CD4/CD8 Absolute CD3 Count % CD4 Cells Absolute CD4 Count % CD8 Cells HIV-1 RNA PCR copies/ml HIV-1 RNA (PCR) log 03/12/18 03/12/18 03/12/18 07:21 07:44 10:16 WBC RBC Hgb Hct RDW Plt Count Lymph % (Auto) Lymph # Seg Neutrophils % Seg Neuts % (Manual) Lymphocytes % (Manual) Monocytes % (Manual) Seg Neutrophils # Seg Neutrophils # Man Abs Lymphs (Manual) Lymphocytes # (Manual) Monocytes # (Manual) PT INR APTT Fibrinogen POC ABG pH 7.337 L POC ABG pCO2 54.9 H POC ABG pO2 59 L VBG pH Sodium Potassium Chloride Carbon Dioxide BUN Creatinine Glucose POC Glucose 157 H 153 H Lactic Acid Calcium Phosphorus Magnesium Iron Ferritin Total Bilirubin Direct Bilirubin Alkaline Phosphatase Lactate Dehydrogenase Total Creatine Kinase NT-Pro-B Natriuret Pep Total Protein Albumin Triglycerides Vitamin B12 Folate Urine WBC (Auto) Urine Creatinine Urine Total Protein Complement C3 Lymph Enumerat CD4/CD8 Absolute CD3 Count % CD4 Cells Absolute CD4 Count % CD8 Cells HIV-1 RNA PCR copies/ml HIV-1 RNA (PCR) log 03/12/18 03/12/18 03/12/18 12:53 15:22 18:17 WBC RBC Hgb Hct RDW Plt Count Lymph % (Auto) Lymph # Seg Neutrophils % Seg Neuts % (Manual) Lymphocytes % (Manual) Monocytes % (Manual) Seg Neutrophils # Seg Neutrophils # Man Abs Lymphs (Manual) Lymphocytes # (Manual) Monocytes # (Manual) PT INR APTT Fibrinogen POC ABG pH POC ABG pCO2 61.7 H POC ABG pO2 110 H VBG pH Sodium Potassium Chloride Carbon Dioxide BUN Creatinine Glucose POC Glucose 148 H 148 H Lactic Acid Calcium Phosphorus Magnesium Iron Ferritin Total Bilirubin Direct Bilirubin Alkaline Phosphatase Lactate Dehydrogenase Total Creatine Kinase NT-Pro-B Natriuret Pep Total Protein Albumin Triglycerides Vitamin B12 Folate Urine WBC (Auto) Urine Creatinine Urine Total Protein Complement C3 Lymph Enumerat CD4/CD8 Absolute CD3 Count % CD4 Cells Absolute CD4 Count % CD8 Cells HIV-1 RNA PCR copies/ml HIV-1 RNA (PCR) log 03/12/18 03/13/18 03/13/18 21:34 01:14 04:37 WBC RBC Hgb Hct RDW Plt Count Lymph % (Auto) Lymph # Seg Neutrophils % Seg Neuts % (Manual) Lymphocytes % (Manual) Monocytes % (Manual) Seg Neutrophils # Seg Neutrophils # Man Abs Lymphs (Manual) Lymphocytes # (Manual) Monocytes # (Manual) PT INR APTT Fibrinogen POC ABG pH POC ABG pCO2 60.2 H POC ABG pO2 115 H VBG pH Sodium Potassium Chloride Carbon Dioxide BUN Creatinine Glucose POC Glucose 161 H 187 H Lactic Acid Calcium Phosphorus Magnesium Iron Ferritin Total Bilirubin Direct Bilirubin Alkaline Phosphatase Lactate Dehydrogenase Total Creatine Kinase NT-Pro-B Natriuret Pep Total Protein Albumin Triglycerides Vitamin B12 Folate Urine WBC (Auto) Urine Creatinine Urine Total Protein Complement C3 Lymph Enumerat CD4/CD8 Absolute CD3 Count % CD4 Cells Absolute CD4 Count % CD8 Cells HIV-1 RNA PCR copies/ml HIV-1 RNA (PCR) log 03/13/18 03/13/18 03/13/18 05:22 05:22 08:24 WBC 30.4 H RBC 3.45 L Hgb 9.8 L Hct 29.7 L RDW Plt Count 37 L Lymph % (Auto) Lymph # Seg Neutrophils % Seg Neuts % (Manual) 75.5 H Lymphocytes % (Manual) 3.0 L Monocytes % (Manual) Seg Neutrophils # Seg Neutrophils # Man 23.0 H Abs Lymphs (Manual) Lymphocytes # (Manual) 0.9 L Monocytes # (Manual) PT INR APTT Fibrinogen POC ABG pH POC ABG pCO2 POC ABG pO2 VBG pH Sodium 146 H Potassium Chloride Carbon Dioxide 35 H D BUN 71 H Creatinine 1.7 H Glucose 187 H POC Glucose 210 H Lactic Acid Calcium Phosphorus Magnesium Iron Ferritin Total Bilirubin Direct Bilirubin Alkaline Phosphatase Lactate Dehydrogenase Total Creatine Kinase NT-Pro-B Natriuret Pep Total Protein Albumin Triglycerides Vitamin B12 Folate Urine WBC (Auto) Urine Creatinine Urine Total Protein Complement C3 Lymph Enumerat CD4/CD8 Absolute CD3 Count % CD4 Cells Absolute CD4 Count % CD8 Cells HIV-1 RNA PCR copies/ml HIV-1 RNA (PCR) log 03/13/18 03/13/18 03/13/18 12:22 12:44 17:27 WBC RBC Hgb Hct RDW Plt Count Lymph % (Auto) Lymph # Seg Neutrophils % Seg Neuts % (Manual) Lymphocytes % (Manual) Monocytes % (Manual) Seg Neutrophils # Seg Neutrophils # Man Abs Lymphs (Manual) Lymphocytes # (Manual) Monocytes # (Manual) PT INR APTT Fibrinogen POC ABG pH POC ABG pCO2 POC ABG pO2 VBG pH Sodium Potassium Chloride Carbon Dioxide BUN Creatinine Glucose POC Glucose 208 H 169 H Lactic Acid Calcium Phosphorus Magnesium 3.00 H Iron Ferritin Total Bilirubin Direct Bilirubin Alkaline Phosphatase Lactate Dehydrogenase Total Creatine Kinase NT-Pro-B Natriuret Pep Total Protein Albumin Triglycerides Vitamin B12 Folate Urine WBC (Auto) Urine Creatinine Urine Total Protein Complement C3 Lymph Enumerat CD4/CD8 Absolute CD3 Count % CD4 Cells Absolute CD4 Count % CD8 Cells HIV-1 RNA PCR copies/ml HIV-1 RNA (PCR) log 03/13/18 03/14/18 03/14/18 23:35 04:29 05:23 WBC RBC Hgb Hct RDW Plt Count Lymph % (Auto) Lymph # Seg Neutrophils % Seg Neuts % (Manual) Lymphocytes % (Manual) Monocytes % (Manual) Seg Neutrophils # Seg Neutrophils # Man Abs Lymphs (Manual) Lymphocytes # (Manual) Monocytes # (Manual) PT INR APTT Fibrinogen POC ABG pH 7.502 H POC ABG pCO2 53.2 H POC ABG pO2 VBG pH Sodium Potassium Chloride Carbon Dioxide BUN Creatinine Glucose POC Glucose 256 H 212 H Lactic Acid Calcium Phosphorus Magnesium Iron Ferritin Total Bilirubin Direct Bilirubin Alkaline Phosphatase Lactate Dehydrogenase Total Creatine Kinase NT-Pro-B Natriuret Pep Total Protein Albumin Triglycerides Vitamin B12 Folate Urine WBC (Auto) Urine Creatinine Urine Total Protein Complement C3 Lymph Enumerat CD4/CD8 Absolute CD3 Count % CD4 Cells Absolute CD4 Count % CD8 Cells HIV-1 RNA PCR copies/ml HIV-1 RNA (PCR) log 03/14/18 03/14/18 03/14/18 06:00 06:00 06:00 WBC 27.3 H RBC 3.52 L Hgb 10.0 L Hct 30.8 L RDW Plt Count 50 L Lymph % (Auto) Lymph # Seg Neutrophils % Seg Neuts % (Manual) 87.0 H Lymphocytes % (Manual) 3.0 L Monocytes % (Manual) Seg Neutrophils # Seg Neutrophils # Man 23.8 H Abs Lymphs (Manual) Lymphocytes # (Manual) 0.8 L Monocytes # (Manual) 1.6 H PT INR APTT Fibrinogen POC ABG pH POC ABG pCO2 POC ABG pO2 VBG pH Sodium 156 H D Potassium Chloride 109.5 H Carbon Dioxide 37 H BUN 70 H Creatinine Glucose 202 H POC Glucose Lactic Acid Calcium Phosphorus Magnesium Iron Ferritin Total Bilirubin Direct Bilirubin Alkaline Phosphatase Lactate Dehydrogenase Total Creatine Kinase 17 L NT-Pro-B Natriuret Pep Total Protein Albumin Triglycerides Vitamin B12 Folate Urine WBC (Auto) Urine Creatinine Urine Total Protein Complement C3 Lymph Enumerat CD4/CD8 Absolute CD3 Count % CD4 Cells Absolute CD4 Count % CD8 Cells HIV-1 RNA PCR copies/ml HIV-1 RNA (PCR) log 03/14/18 03/14/18 03/14/18 07:00 07:00 07:00 WBC RBC Hgb Hct RDW Plt Count Lymph % (Auto) Lymph # Seg Neutrophils % Seg Neuts % (Manual) Lymphocytes % (Manual) Monocytes % (Manual) Seg Neutrophils # Seg Neutrophils # Man Abs Lymphs (Manual) Lymphocytes # (Manual) Monocytes # (Manual) PT INR APTT Fibrinogen POC ABG pH POC ABG pCO2 POC ABG pO2 VBG pH Sodium Potassium Chloride Carbon Dioxide BUN Creatinine Glucose POC Glucose Lactic Acid Calcium Phosphorus Magnesium Iron 42 L Ferritin 532.4 H Total Bilirubin Direct Bilirubin Alkaline Phosphatase Lactate Dehydrogenase Total Creatine Kinase NT-Pro-B Natriuret Pep Total Protein Albumin Triglycerides Vitamin B12 1825 H Folate Urine WBC (Auto) Urine Creatinine Urine Total Protein Complement C3 Lymph Enumerat CD4/CD8 Absolute CD3 Count % CD4 Cells Absolute CD4 Count % CD8 Cells HIV-1 RNA PCR copies/ml HIV-1 RNA (PCR) log 03/14/18 03/14/18 03/14/18 07:00 07:00 13:01 WBC RBC Hgb Hct RDW Plt Count Lymph % (Auto) Lymph # Seg Neutrophils % Seg Neuts % (Manual) Lymphocytes % (Manual) Monocytes % (Manual) Seg Neutrophils # Seg Neutrophils # Man Abs Lymphs (Manual) Lymphocytes # (Manual) Monocytes # (Manual) PT INR APTT Fibrinogen POC ABG pH POC ABG pCO2 POC ABG pO2 VBG pH Sodium Potassium Chloride Carbon Dioxide BUN Creatinine Glucose POC Glucose 201 H Lactic Acid Calcium Phosphorus Magnesium Iron Ferritin Total Bilirubin Direct Bilirubin Alkaline Phosphatase Lactate Dehydrogenase Total Creatine Kinase NT-Pro-B Natriuret Pep Total Protein Albumin Triglycerides 532 H Vitamin B12 Folate 6.29 L Urine WBC (Auto) Urine Creatinine Urine Total Protein Complement C3 Lymph Enumerat CD4/CD8 Absolute CD3 Count % CD4 Cells Absolute CD4 Count % CD8 Cells HIV-1 RNA PCR copies/ml HIV-1 RNA (PCR) log 03/14/18 03/14/18 03/14/18 17:37 21:04 23:30 WBC RBC Hgb Hct RDW Plt Count Lymph % (Auto) Lymph # Seg Neutrophils % Seg Neuts % (Manual) Lymphocytes % (Manual) Monocytes % (Manual) Seg Neutrophils # Seg Neutrophils # Man Abs Lymphs (Manual) Lymphocytes # (Manual) Monocytes # (Manual) PT INR APTT Fibrinogen POC ABG pH POC ABG pCO2 POC ABG pO2 VBG pH Sodium 155 H Potassium Chloride 114.1 H Carbon Dioxide 33 H BUN 58 H Creatinine Glucose 166 H POC Glucose 179 H 167 H Lactic Acid Calcium Phosphorus Magnesium Iron Ferritin Total Bilirubin Direct Bilirubin Alkaline Phosphatase Lactate Dehydrogenase Total Creatine Kinase NT-Pro-B Natriuret Pep Total Protein Albumin Triglycerides Vitamin B12 Folate Urine WBC (Auto) Urine Creatinine Urine Total Protein Complement C3 Lymph Enumerat CD4/CD8 Absolute CD3 Count % CD4 Cells Absolute CD4 Count % CD8 Cells HIV-1 RNA PCR copies/ml HIV-1 RNA (PCR) log 03/15/18 03/15/18 03/15/18 04:44 04:44 04:44 WBC 26.0 H RBC Hgb 10.5 L Hct 33.0 L RDW Plt Count 70 L Lymph % (Auto) Lymph # Seg Neutrophils % Seg Neuts % (Manual) 91.0 H Lymphocytes % (Manual) 6.0 L Monocytes % (Manual) Seg Neutrophils # Seg Neutrophils # Man 23.7 H Abs Lymphs (Manual) Lymphocytes # (Manual) Monocytes # (Manual) PT INR APTT Fibrinogen POC ABG pH POC ABG pCO2 POC ABG pO2 VBG pH Sodium 155 H Potassium Chloride 114.3 H Carbon Dioxide 31 H BUN 51 H Creatinine Glucose 173 H POC Glucose Lactic Acid Calcium Phosphorus Magnesium 2.80 H Iron Ferritin Total Bilirubin Direct Bilirubin Alkaline Phosphatase Lactate Dehydrogenase Total Creatine Kinase NT-Pro-B Natriuret Pep Total Protein Albumin Triglycerides Vitamin B12 Folate Urine WBC (Auto) Urine Creatinine Urine Total Protein Complement C3 Lymph Enumerat CD4/CD8 Absolute CD3 Count % CD4 Cells Absolute CD4 Count % CD8 Cells HIV-1 RNA PCR copies/ml HIV-1 RNA (PCR) log 03/15/18 03/15/18 03/15/18 04:53 06:36 17:25 WBC RBC Hgb Hct RDW Plt Count Lymph % (Auto) Lymph # Seg Neutrophils % Seg Neuts % (Manual) Lymphocytes % (Manual) Monocytes % (Manual) Seg Neutrophils # Seg Neutrophils # Man Abs Lymphs (Manual) Lymphocytes # (Manual) Monocytes # (Manual) PT INR APTT Fibrinogen POC ABG pH POC ABG pCO2 59.0 H POC ABG pO2 112 H VBG pH Sodium Potassium Chloride Carbon Dioxide BUN Creatinine Glucose POC Glucose 199 H 138 H Lactic Acid Calcium Phosphorus Magnesium Iron Ferritin Total Bilirubin Direct Bilirubin Alkaline Phosphatase Lactate Dehydrogenase Total Creatine Kinase NT-Pro-B Natriuret Pep Total Protein Albumin Triglycerides Vitamin B12 Folate Urine WBC (Auto) Urine Creatinine Urine Total Protein Complement C3 Lymph Enumerat CD4/CD8 Absolute CD3 Count % CD4 Cells Absolute CD4 Count % CD8 Cells HIV-1 RNA PCR copies/ml HIV-1 RNA (PCR) log 03/15/18 03/16/18 03/16/18 23:20 03:59 05:01 WBC 21.9 H RBC Hgb 10.3 L Hct 32.5 L RDW Plt Count 88 L Lymph % (Auto) Lymph # Seg Neutrophils % Seg Neuts % (Manual) 98.0 H Lymphocytes % (Manual) 2.0 L Monocytes % (Manual) Seg Neutrophils # Seg Neutrophils # Man 21.5 H Abs Lymphs (Manual) Lymphocytes # (Manual) 0.4 L Monocytes # (Manual) PT INR APTT Fibrinogen POC ABG pH POC ABG pCO2 46.6 H POC ABG pO2 50 L VBG pH Sodium Potassium Chloride Carbon Dioxide BUN Creatinine Glucose POC Glucose 182 H Lactic Acid Calcium Phosphorus Magnesium Iron Ferritin Total Bilirubin Direct Bilirubin Alkaline Phosphatase Lactate Dehydrogenase Total Creatine Kinase NT-Pro-B Natriuret Pep Total Protein Albumin Triglycerides Vitamin B12 Folate Urine WBC (Auto) Urine Creatinine Urine Total Protein Complement C3 Lymph Enumerat CD4/CD8 Absolute CD3 Count % CD4 Cells Absolute CD4 Count % CD8 Cells HIV-1 RNA PCR copies/ml HIV-1 RNA (PCR) log 03/16/18 03/16/18 03/16/18 05:01 05:01 05:29 WBC RBC Hgb Hct RDW Plt Count Lymph % (Auto) Lymph # Seg Neutrophils % Seg Neuts % (Manual) Lymphocytes % (Manual) Monocytes % (Manual) Seg Neutrophils # Seg Neutrophils # Man Abs Lymphs (Manual) Lymphocytes # (Manual) Monocytes # (Manual) PT INR APTT Fibrinogen POC ABG pH POC ABG pCO2 POC ABG pO2 VBG pH Sodium 148 H Potassium 5.7 H Chloride 112.1 H Carbon Dioxide BUN 41 H Creatinine Glucose 234 H POC Glucose 257 H Lactic Acid Calcium Phosphorus Magnesium Iron Ferritin Total Bilirubin Direct Bilirubin Alkaline Phosphatase Lactate Dehydrogenase Total Creatine Kinase NT-Pro-B Natriuret Pep Total Protein Albumin Triglycerides 212 H Vitamin B12 Folate Urine WBC (Auto) Urine Creatinine Urine Total Protein Complement C3 Lymph Enumerat CD4/CD8 Absolute CD3 Count % CD4 Cells Absolute CD4 Count % CD8 Cells HIV-1 RNA PCR copies/ml HIV-1 RNA (PCR) log 03/16/18 03/16/18 03/16/18 11:30 15:56 17:28 WBC RBC Hgb Hct RDW Plt Count Lymph % (Auto) Lymph # Seg Neutrophils % Seg Neuts % (Manual) Lymphocytes % (Manual) Monocytes % (Manual) Seg Neutrophils # Seg Neutrophils # Man Abs Lymphs (Manual) Lymphocytes # (Manual) Monocytes # (Manual) PT INR APTT Fibrinogen POC ABG pH POC ABG pCO2 POC ABG pO2 VBG pH Sodium Potassium 5.5 H Chloride Carbon Dioxide BUN 39 H Creatinine Glucose 186 H POC Glucose 186 H 153 H Lactic Acid Calcium Phosphorus Magnesium Iron Ferritin Total Bilirubin Direct Bilirubin Alkaline Phosphatase Lactate Dehydrogenase Total Creatine Kinase NT-Pro-B Natriuret Pep Total Protein Albumin Triglycerides Vitamin B12 Folate Urine WBC (Auto) Urine Creatinine Urine Total Protein Complement C3 Lymph Enumerat CD4/CD8 Absolute CD3 Count % CD4 Cells Absolute CD4 Count % CD8 Cells HIV-1 RNA PCR copies/ml HIV-1 RNA (PCR) log 03/16/18 03/17/18 03/17/18 23:48 04:25 04:25 WBC 13.9 H RBC 2.89 L Hgb 8.2 L Hct 27.8 L RDW Plt Count 85 L Lymph % (Auto) Lymph # Seg Neutrophils % Seg Neuts % (Manual) 88.0 H Lymphocytes % (Manual) 4.0 L Monocytes % (Manual) Seg Neutrophils # Seg Neutrophils # Man 12.2 H Abs Lymphs (Manual) Lymphocytes # (Manual) 0.6 L Monocytes # (Manual) PT INR APTT Fibrinogen POC ABG pH POC ABG pCO2 POC ABG pO2 VBG pH Sodium Potassium 5.7 H Chloride 107.5 H Carbon Dioxide BUN 38 H Creatinine Glucose 165 H POC Glucose 131 H Lactic Acid Calcium Phosphorus Magnesium Iron Ferritin Total Bilirubin Direct Bilirubin Alkaline Phosphatase Lactate Dehydrogenase Total Creatine Kinase NT-Pro-B Natriuret Pep Total Protein Albumin Triglycerides Vitamin B12 Folate Urine WBC (Auto) Urine Creatinine Urine Total Protein Complement C3 Lymph Enumerat CD4/CD8 Absolute CD3 Count % CD4 Cells Absolute CD4 Count % CD8 Cells HIV-1 RNA PCR copies/ml HIV-1 RNA (PCR) log 03/17/18 03/17/18 03/17/18 04:25 04:51 05:39 WBC RBC Hgb Hct RDW Plt Count Lymph % (Auto) Lymph # Seg Neutrophils % Seg Neuts % (Manual) Lymphocytes % (Manual) Monocytes % (Manual) Seg Neutrophils # Seg Neutrophils # Man Abs Lymphs (Manual) Lymphocytes # (Manual) Monocytes # (Manual) PT INR APTT Fibrinogen POC ABG pH POC ABG pCO2 45.4 H POC ABG pO2 174 H VBG pH Sodium Potassium Chloride Carbon Dioxide BUN Creatinine Glucose POC Glucose 140 H Lactic Acid Calcium Phosphorus Magnesium Iron Ferritin Total Bilirubin Direct Bilirubin Alkaline Phosphatase Lactate Dehydrogenase 232 H Total Creatine Kinase 33 L NT-Pro-B Natriuret Pep Total Protein Albumin Triglycerides Vitamin B12 Folate Urine WBC (Auto) Urine Creatinine Urine Total Protein Complement C3 Lymph Enumerat CD4/CD8 Absolute CD3 Count % CD4 Cells Absolute CD4 Count % CD8 Cells HIV-1 RNA PCR copies/ml HIV-1 RNA (PCR) log 03/17/18 03/17/18 03/17/18 11:51 14:40 17:40 WBC RBC Hgb Hct RDW Plt Count Lymph % (Auto) Lymph # Seg Neutrophils % Seg Neuts % (Manual) Lymphocytes % (Manual) Monocytes % (Manual) Seg Neutrophils # Seg Neutrophils # Man Abs Lymphs (Manual) Lymphocytes # (Manual) Monocytes # (Manual) PT INR APTT Fibrinogen POC ABG pH POC ABG pCO2 POC ABG pO2 VBG pH Sodium Potassium Chloride Carbon Dioxide BUN 36 H Creatinine Glucose 107 H POC Glucose 122 H 113 H Lactic Acid Calcium Phosphorus Magnesium Iron Ferritin Total Bilirubin Direct Bilirubin Alkaline Phosphatase Lactate Dehydrogenase Total Creatine Kinase NT-Pro-B Natriuret Pep Total Protein Albumin Triglycerides Vitamin B12 Folate Urine WBC (Auto) Urine Creatinine Urine Total Protein Complement C3 Lymph Enumerat CD4/CD8 Absolute CD3 Count % CD4 Cells Absolute CD4 Count % CD8 Cells HIV-1 RNA PCR copies/ml HIV-1 RNA (PCR) log 03/18/18 03/18/18 03/18/18 04:16 04:16 04:48 WBC 14.9 H RBC Hgb 10.8 L Hct 33.3 L RDW Plt Count Lymph % (Auto) Lymph # Seg Neutrophils % Seg Neuts % (Manual) 76.0 H Lymphocytes % (Manual) 5.0 L Monocytes % (Manual) Seg Neutrophils # Seg Neutrophils # Man 11.3 H Abs Lymphs (Manual) Lymphocytes # (Manual) 0.7 L Monocytes # (Manual) PT INR APTT Fibrinogen POC ABG pH POC ABG pCO2 POC ABG pO2 54 L VBG pH Sodium Potassium Chloride Carbon Dioxide BUN 34 H Creatinine Glucose 116 H POC Glucose Lactic Acid Calcium Phosphorus Magnesium Iron Ferritin Total Bilirubin Direct Bilirubin Alkaline Phosphatase Lactate Dehydrogenase Total Creatine Kinase NT-Pro-B Natriuret Pep Total Protein Albumin Triglycerides Vitamin B12 Folate Urine WBC (Auto) Urine Creatinine Urine Total Protein Complement C3 Lymph Enumerat CD4/CD8 Absolute CD3 Count % CD4 Cells Absolute CD4 Count % CD8 Cells HIV-1 RNA PCR copies/ml HIV-1 RNA (PCR) log 03/18/18 03/18/18 03/19/18 05:13 18:40 04:50 WBC RBC Hgb Hct RDW Plt Count Lymph % (Auto) Lymph # Seg Neutrophils % Seg Neuts % (Manual) Lymphocytes % (Manual) Monocytes % (Manual) Seg Neutrophils # Seg Neutrophils # Man Abs Lymphs (Manual) Lymphocytes # (Manual) Monocytes # (Manual) PT INR APTT Fibrinogen POC ABG pH POC ABG pCO2 46.1 H POC ABG pO2 112 H VBG pH Sodium Potassium Chloride Carbon Dioxide BUN Creatinine Glucose POC Glucose 127 H 110 H Lactic Acid Calcium Phosphorus Magnesium Iron Ferritin Total Bilirubin Direct Bilirubin Alkaline Phosphatase Lactate Dehydrogenase Total Creatine Kinase NT-Pro-B Natriuret Pep Total Protein Albumin Triglycerides Vitamin B12 Folate Urine WBC (Auto) Urine Creatinine Urine Total Protein Complement C3 Lymph Enumerat CD4/CD8 Absolute CD3 Count % CD4 Cells Absolute CD4 Count % CD8 Cells HIV-1 RNA PCR copies/ml HIV-1 RNA (PCR) log 03/19/18 03/19/18 03/19/18 05:27 06:00 06:00 WBC 13.0 H RBC 3.43 L Hgb 9.7 L Hct 30.6 L RDW Plt Count Lymph % (Auto) 8.4 L Lymph # 1.1 L Seg Neutrophils % 87.4 H Seg Neuts % (Manual) Lymphocytes % (Manual) Monocytes % (Manual) Seg Neutrophils # 11.4 H Seg Neutrophils # Man Abs Lymphs (Manual) Lymphocytes # (Manual) Monocytes # (Manual) PT INR APTT Fibrinogen POC ABG pH POC ABG pCO2 POC ABG pO2 VBG pH Sodium Potassium Chloride 107.8 H Carbon Dioxide BUN 28 H Creatinine Glucose 220 H POC Glucose 69 L Lactic Acid Calcium 8.1 L Phosphorus Magnesium Iron Ferritin Total Bilirubin Direct Bilirubin Alkaline Phosphatase Lactate Dehydrogenase Total Creatine Kinase NT-Pro-B Natriuret Pep Total Protein Albumin Triglycerides Vitamin B12 Folate Urine WBC (Auto) Urine Creatinine Urine Total Protein Complement C3 Lymph Enumerat CD4/CD8 Absolute CD3 Count % CD4 Cells Absolute CD4 Count % CD8 Cells HIV-1 RNA PCR copies/ml HIV-1 RNA (PCR) log 03/19/18 03/19/18 03/20/18 06:00 17:10 00:01 WBC RBC Hgb Hct RDW Plt Count Lymph % (Auto) Lymph # Seg Neutrophils % Seg Neuts % (Manual) Lymphocytes % (Manual) Monocytes % (Manual) Seg Neutrophils # Seg Neutrophils # Man Abs Lymphs (Manual) Lymphocytes # (Manual) Monocytes # (Manual) PT INR APTT Fibrinogen POC ABG pH POC ABG pCO2 POC ABG pO2 VBG pH Sodium Potassium Chloride Carbon Dioxide BUN Creatinine Glucose POC Glucose 132 H 181 H Lactic Acid Calcium Phosphorus Magnesium Iron Ferritin Total Bilirubin Direct Bilirubin Alkaline Phosphatase Lactate Dehydrogenase Total Creatine Kinase NT-Pro-B Natriuret Pep Total Protein Albumin Triglycerides 177 H Vitamin B12 Folate Urine WBC (Auto) Urine Creatinine Urine Total Protein Complement C3 Lymph Enumerat CD4/CD8 Absolute CD3 Count % CD4 Cells Absolute CD4 Count % CD8 Cells HIV-1 RNA PCR copies/ml HIV-1 RNA (PCR) log 03/20/18 03/20/18 03/20/18 04:00 04:00 04:07 WBC 19.0 H RBC 3.53 L Hgb 10.5 L Hct 31.2 L RDW Plt Count Lymph % (Auto) Lymph # Seg Neutrophils % Seg Neuts % (Manual) 94.0 H Lymphocytes % (Manual) 4.0 L Monocytes % (Manual) Seg Neutrophils # Seg Neutrophils # Man 17.9 H Abs Lymphs (Manual) Lymphocytes # (Manual) 0.8 L Monocytes # (Manual) PT INR APTT Fibrinogen POC ABG pH 7.342 L POC ABG pCO2 48.4 H POC ABG pO2 VBG pH Sodium Potassium Chloride 107.1 H Carbon Dioxide BUN 30 H Creatinine Glucose 143 H POC Glucose Lactic Acid Calcium 8.1 L Phosphorus Magnesium Iron Ferritin Total Bilirubin Direct Bilirubin Alkaline Phosphatase Lactate Dehydrogenase Total Creatine Kinase NT-Pro-B Natriuret Pep Total Protein Albumin Triglycerides Vitamin B12 Folate Urine WBC (Auto) Urine Creatinine Urine Total Protein Complement C3 Lymph Enumerat CD4/CD8 Absolute CD3 Count % CD4 Cells Absolute CD4 Count % CD8 Cells HIV-1 RNA PCR copies/ml HIV-1 RNA (PCR) log 03/20/18 03/20/18 03/20/18 11:31 17:55 23:50 WBC RBC Hgb Hct RDW Plt Count Lymph % (Auto) Lymph # Seg Neutrophils % Seg Neuts % (Manual) Lymphocytes % (Manual) Monocytes % (Manual) Seg Neutrophils # Seg Neutrophils # Man Abs Lymphs (Manual) Lymphocytes # (Manual) Monocytes # (Manual) PT INR APTT Fibrinogen POC ABG pH POC ABG pCO2 POC ABG pO2 VBG pH Sodium Potassium Chloride Carbon Dioxide BUN Creatinine Glucose POC Glucose 136 H 162 H 148 H Lactic Acid Calcium Phosphorus Magnesium Iron Ferritin Total Bilirubin Direct Bilirubin Alkaline Phosphatase Lactate Dehydrogenase Total Creatine Kinase NT-Pro-B Natriuret Pep Total Protein Albumin Triglycerides Vitamin B12 Folate Urine WBC (Auto) Urine Creatinine Urine Total Protein Complement C3 Lymph Enumerat CD4/CD8 Absolute CD3 Count % CD4 Cells Absolute CD4 Count % CD8 Cells HIV-1 RNA PCR copies/ml HIV-1 RNA (PCR) log 03/21/18 03/21/18 03/21/18 04:41 05:15 05:15 WBC RBC 2.37 L Hgb 7.2 L D Hct 21.4 L D RDW Plt Count Lymph % (Auto) 8.9 L Lymph # 1.0 L Seg Neutrophils % 82.1 H Seg Neuts % (Manual) Lymphocytes % (Manual) Monocytes % (Manual) Seg Neutrophils # 8.9 H Seg Neutrophils # Man Abs Lymphs (Manual) Lymphocytes # (Manual) Monocytes # (Manual) PT INR APTT Fibrinogen POC ABG pH 7.344 L POC ABG pCO2 52.8 H POC ABG pO2 140 H VBG pH Sodium Potassium 3.0 L D Chloride 117.5 H Carbon Dioxide 21 L BUN 21 H Creatinine 0.5 L Glucose 118 H POC Glucose Lactic Acid Calcium 6.0 L D Phosphorus 1.90 L D Magnesium Iron Ferritin Total Bilirubin Direct Bilirubin Alkaline Phosphatase Lactate Dehydrogenase Total Creatine Kinase NT-Pro-B Natriuret Pep Total Protein Albumin Triglycerides Vitamin B12 Folate Urine WBC (Auto) Urine Creatinine Urine Total Protein Complement C3 Lymph Enumerat CD4/CD8 Absolute CD3 Count % CD4 Cells Absolute CD4 Count % CD8 Cells HIV-1 RNA PCR copies/ml HIV-1 RNA (PCR) log 03/21/18 03/21/18 03/21/18 05:15 05:23 08:25 WBC RBC Hgb 9.0 L Hct 28.1 L D RDW Plt Count Lymph % (Auto) Lymph # Seg Neutrophils % Seg Neuts % (Manual) Lymphocytes % (Manual) Monocytes % (Manual) Seg Neutrophils # Seg Neutrophils # Man Abs Lymphs (Manual) Lymphocytes # (Manual) Monocytes # (Manual) PT INR APTT Fibrinogen POC ABG pH POC ABG pCO2 POC ABG pO2 VBG pH Sodium Potassium Chloride Carbon Dioxide BUN Creatinine Glucose POC Glucose 159 H Lactic Acid Calcium Phosphorus Magnesium 1.60 L Iron Ferritin Total Bilirubin Direct Bilirubin Alkaline Phosphatase Lactate Dehydrogenase Total Creatine Kinase NT-Pro-B Natriuret Pep Total Protein Albumin Triglycerides Vitamin B12 Folate Urine WBC (Auto) Urine Creatinine Urine Total Protein Complement C3 Lymph Enumerat CD4/CD8 Absolute CD3 Count % CD4 Cells Absolute CD4 Count % CD8 Cells HIV-1 RNA PCR copies/ml HIV-1 RNA (PCR) log 03/21/18 03/21/18 03/21/18 12:27 13:39 18:04 WBC RBC Hgb Hct RDW Plt Count Lymph % (Auto) Lymph # Seg Neutrophils % Seg Neuts % (Manual) Lymphocytes % (Manual) Monocytes % (Manual) Seg Neutrophils # Seg Neutrophils # Man Abs Lymphs (Manual) Lymphocytes # (Manual) Monocytes # (Manual) PT INR APTT Fibrinogen POC ABG pH POC ABG pCO2 50.9 H POC ABG pO2 60 L VBG pH Sodium Potassium Chloride Carbon Dioxide BUN Creatinine Glucose POC Glucose 177 H 119 H Lactic Acid Calcium Phosphorus Magnesium Iron Ferritin Total Bilirubin Direct Bilirubin Alkaline Phosphatase Lactate Dehydrogenase Total Creatine Kinase NT-Pro-B Natriuret Pep Total Protein Albumin Triglycerides Vitamin B12 Folate Urine WBC (Auto) Urine Creatinine Urine Total Protein Complement C3 Lymph Enumerat CD4/CD8 Absolute CD3 Count % CD4 Cells Absolute CD4 Count % CD8 Cells HIV-1 RNA PCR copies/ml HIV-1 RNA (PCR) log 03/22/18 03/22/18 03/22/18 00:15 05:28 05:36 WBC RBC Hgb Hct RDW Plt Count Lymph % (Auto) Lymph # Seg Neutrophils % Seg Neuts % (Manual) Lymphocytes % (Manual) Monocytes % (Manual) Seg Neutrophils # Seg Neutrophils # Man Abs Lymphs (Manual) Lymphocytes # (Manual) Monocytes # (Manual) PT INR APTT Fibrinogen POC ABG pH POC ABG pCO2 POC ABG pO2 155 H VBG pH Sodium Potassium Chloride Carbon Dioxide BUN Creatinine Glucose POC Glucose 125 H 140 H Lactic Acid Calcium Phosphorus Magnesium Iron Ferritin Total Bilirubin Direct Bilirubin Alkaline Phosphatase Lactate Dehydrogenase Total Creatine Kinase NT-Pro-B Natriuret Pep Total Protein Albumin Triglycerides Vitamin B12 Folate Urine WBC (Auto) Urine Creatinine Urine Total Protein Complement C3 Lymph Enumerat CD4/CD8 Absolute CD3 Count % CD4 Cells Absolute CD4 Count % CD8 Cells HIV-1 RNA PCR copies/ml HIV-1 RNA (PCR) log
--- NOTE | 2018-03-22 12:33 | Progress Note ---
Assessment and Plan Assessment and plan: 33 yo with HIV infection. He initially presented with nausea, vomiting, general weakness and chills for 2 days. He was getting weaker, no Urine output therefore came to ED for evaluation. In ED, labs show acute kidney injury with metabolic acidosis thrombocytopenia. He was Sepic, hypotensive. 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 He received platelet transfusion and steroids after which she improved * He suffered a SCOTT, which resolved with IV fluids, nephrotoxins are being avoided, his electrolytes have been repleted. He was medically treated for hyperkalemia at some point but then now became hypokalemic and received potassium supplements today * The patient is HIV positive he stopped taking his medications over 6 years ago, management per infectious disease, on prophylaxis antibiotics for opportunistic organisms * The patient had worsening respiratory failure, has been on ventilator since 03/12/2018. He then went on to have bronchoscopy, BAL culture grew MRSA, patient was started on vancomycin on 03/21/18, ID managing * patient extubated on 03/22/18, now on high flow oxygen Diagnoses PNA due to MRSA Septic shock/Haemophilus hemolyticus bacteremia ITP, Thrombocytopenia, stable and improving, Acute hypoxic respiratory failure on MV >96 hours, intubated since 03/12/18 hyperkalemia, then later developed hypokalemia HIV/AIDs SCOTT-ATN Hyponatremia Hypoglycemia. Coagulopathy, Acute toxic metabolic encephalpathy Critical care time 35 minutes The patient does not want his HIV status being discussed with his family. His brother apparently was aware, but his mother wasn't. [facility] had contacted her and told her, so now the mother is also aware History Interval history: no agitation no n/v, no diarrhea sob is improving No fevers, no seizures no vomiting Hospitalist Physical - Physical exam Narrative exam: General.: Appears well, no distress, nontoxic HEENT: Moist mucous membranes, extraocular muscles intact, no lymphadenopathy Neck: supple Cardiac: S1-S2 heard Lungs: CTA BL Abdomen: soft , nontender, nondistended, bowel sounds positive Extremities: no edema clubbing or cyanosis Skin: no rash or lesions Neurologic: no deficits psych, calm and cooperative - Constitutional Vitals: Temp Pulse Resp BP Pulse Ox 99.6 F 107 H 18 128/63 100 03/22/18 08:00 03/22/18 09:03 03/22/18 09:03 03/22/18 09:03 03/22/18 09:03 General appearance: Present: cachectic, other (chronically ill-appearing) Results - Labs CBC & Chem 7: 03/21/18 08:25 03/21/18 05:15 Labs: Laboratory Last Values WBC 10.9 K/mm3 (4.5-11.0) 03/21/18 05:15 RBC 2.37 M/mm3 (3.65-5.03) L 03/21/18 05:15 Hgb 9.0 gm/dl (11.8-15.2) L 03/21/18 08:25 Hct 28.1 % (35.5-45.6) L D 03/21/18 08:25 MCV 90 fl (84-94) 03/21/18 05:15 MCH 31 pg (28-32) 03/21/18 05:15 MCHC 34 % (32-34) 03/21/18 05:15 RDW 14.3 % (13.2-15.2) 03/21/18 05:15 Plt Count 171 K/mm3 (140-440) 03/21/18 05:15 Lymph % (Auto) 8.9 % (13.4-35.0) L 03/21/18 05:15 Emanuel % (Auto) 7.1 % (0.0-7.3) 03/21/18 05:15 Eos % (Auto) 1.4 % (0.0-4.3) 03/21/18 05:15 Baso % (Auto) 0.5 % (0.0-1.8) 03/21/18 05:15 Lymph # 1.0 K/mm3 (1.2-5.4) L 03/21/18 05:15 Emanuel # 0.8 K/mm3 (0.0-0.8) 03/21/18 05:15 Eos # 0.1 K/mm3 (0.0-0.4) 03/21/18 05:15 Baso # 0.1 K/mm3 (0.0-0.1) 03/21/18 05:15 Add Manual Diff Complete 03/20/18 04:00 Total Counted 100 03/20/18 04:00 Seg Neutrophils % 82.1 % (40.0-70.0) H 03/21/18 05:15 Seg Neuts % (Manual) 94.0 % (40.0-70.0) H 03/20/18 04:00 Band Neutrophils % 0 % 03/20/18 04:00 Lymphocytes % (Manual) 4.0 % (13.4-35.0) L 03/20/18 04:00 Reactive Lymphs % (Man) 0 % 03/20/18 04:00 Monocytes % (Manual) 2.0 % (0.0-7.3) 03/20/18 04:00 Eosinophils % (Manual) 0 % (0.0-4.3) 03/20/18 04:00 Basophils % (Manual) 0 % (0.0-1.8) 03/20/18 04:00 Metamyelocytes % 0 % 03/20/18 04:00 Myelocytes % 0 % 03/20/18 04:00 Promyelocytes % 0 % 03/20/18 04:00 Blast Cells % 0 % 03/20/18 04:00 Nucleated RBC % Not Reportable 03/20/18 04:00 Seg Neutrophils # 8.9 K/mm3 (1.8-7.7) H 03/21/18 05:15 Seg Neutrophils # Man 17.9 K/mm3 (1.8-7.7) H 03/20/18 04:00 Band Neutrophils # 0.0 K/mm3 03/20/18 04:00 Abs Lymphs (Manual) 779 cells/uL (850-3900) L 03/10/18 18:15 Lymphocytes # (Manual) 0.8 K/mm3 (1.2-5.4) L 03/20/18 04:00 Abs React Lymphs (Man) 0.0 K/mm3 03/20/18 04:00 Monocytes # (Manual) 0.4 K/mm3 (0.0-0.8) 03/20/18 04:00 Eosinophils # (Manual) 0.0 K/mm3 (0.0-0.4) 03/20/18 04:00 Basophils # (Manual) 0.0 K/mm3 (0.0-0.1) 03/20/18 04:00 Metamyelocytes # 0.0 K/mm3 03/20/18 04:00 Myelocytes # 0.0 K/mm3 03/20/18 04:00 Promyelocytes # 0.0 K/mm3 03/20/18 04:00 Blast Cells # 0.0 K/mm3 03/20/18 04:00 Pathologist Review 03/12/18 06:29 WBC Morphology Not Reportable 03/20/18 04:00 Hypersegmented Neuts Not Reportable 03/20/18 04:00 Hyposegmented Neuts Not Reportable 03/20/18 04:00 Hypogranular Neuts Not Reportable 03/20/18 04:00 Smudge Cells Not Reportable 03/20/18 04:00 Toxic Granulation Not Reportable 03/20/18 04:00 Toxic Vacuolation Not Reportable 03/20/18 04:00 Dohle Bodies Not Reportable 03/20/18 04:00 Pelger-Huet Anomaly Not Reportable 03/20/18 04:00 Kamar Rods Not Reportable 03/20/18 04:00 Platelet Estimate Consistent w auto 03/20/18 04:00 Clumped Platelets Not Reportable 03/20/18 04:00 Plt Clumps, EDTA Not Reportable 03/20/18 04:00 Large Platelets Not Reportable 03/20/18 04:00 Giant Platelets Not Reportable 03/20/18 04:00 Platelet Satelliting Not Reportable 03/20/18 04:00 Plt Morphology Comment Not Reportable 03/20/18 04:00 RBC Morphology Not Reportable 03/20/18 04:00 Dimorphic RBCs Not Reportable 03/20/18 04:00 Polychromasia Not Reportable 03/20/18 04:00 Hypochromasia Not Reportable 03/20/18 04:00 Poikilocytosis Not Reportable 03/20/18 04:00 Anisocytosis 1+ 03/20/18 04:00 Microcytosis Not Reportable 03/20/18 04:00 Macrocytosis Not Reportable 03/20/18 04:00 Spherocytes Not Reportable 03/20/18 04:00 Pappenheimer Bodies Not Reportable 03/20/18 04:00 Sickle Cells Not Reportable 03/20/18 04:00 Target Cells Not Reportable 03/20/18 04:00 Tear Drop Cells Not Reportable 03/20/18 04:00 Ovalocytes Not Reportable 03/20/18 04:00 Stomatocytes Rare 03/14/18 06:00 Helmet Cells Not Reportable 03/20/18 04:00 [place] Bodies Not Reportable 03/20/18 04:00 [place] Rings Not Reportable 03/20/18 04:00 [place] Cells Not Reportable 03/20/18 04:00 Bite Cells Not Reportable 03/20/18 04:00 Crenated Cell Not Reportable 03/20/18 04:00 Elliptocytes Not Reportable 03/20/18 04:00 Acanthocytes (Spur) Not Reportable 03/20/18 04:00 Rouleaux Not Reportable 03/20/18 04:00 Hemoglobin C Crystals Not Reportable 03/20/18 04:00 Schistocytes Not Reportable 03/20/18 04:00 Malaria parasites Not Reportable 03/20/18 04:00 Jose Bodies Not Reportable 03/20/18 04:00 Hem Pathologist Commnt No 03/20/18 04:00 PT 17.2 Sec. (12.2-14.9) H 03/10/18 18:15 INR 1.36 (0.87-1.13) H 03/10/18 18:15 APTT 38.5 Sec. (24.2-36.6) H 03/10/18 18:15 Fibrinogen 852 mg/dl (211-480) H 03/10/18 18:15 POC ABG pH 7.447 (7.35-7.45) 03/22/18 05:28 POC ABG pCO2 41.9 (35-45) 03/22/18 05:28 POC ABG pO2 155 (80-105) H 03/22/18 05:28 POC ABG HCO3 28.9 03/22/18 05:28 POC ABG Total CO2 30 03/22/18 05:28 POC ABG O2 Sat 99 03/22/18 05:28 POC ABG Base Excess 5 03/22/18 05:28 VBG pH 7.297 (7.320-7.420) L 03/09/18 07:00 FiO2 45 % 03/22/18 05:28 Sodium 145 mmol/L (137-145) 03/21/18 05:15 Potassium 3.0 mmol/L (3.6-5.0) L D 03/21/18 05:15 Chloride 117.5 mmol/L (98-107) H 03/21/18 05:15 Carbon Dioxide 21 mmol/L (22-30) L 03/21/18 05:15 Anion Gap 10 mmol/L 03/21/18 05:15 BUN 21 mg/dL (9-20) H 03/21/18 05:15 Creatinine 0.5 mg/dL (0.8-1.5) L 03/21/18 05:15 Estimated GFR > 60 ml/min 03/21/18 05:15 BUN/Creatinine Ratio 42 % 03/21/18 05:15 Glucose 118 mg/dL (75-100) H 03/21/18 05:15 POC Glucose 99 (70-105) 03/22/18 11:55 Osmolality 256 Mosm/kg 03/14/18 07:00 Lactic Acid 4.10 mmol/L (0.7-2.0) H* 03/10/18 01:00 Uric Acid 3.5 mg/dL (3.5-7.6) 03/17/18 04:25 Calcium 6.0 mg/dL (8.4-10.2) L D 03/21/18 05:15 Phosphorus 3.10 mg/dL (2.5-4.5) D 03/22/18 04:15 Magnesium 1.60 mg/dL (1.7-2.3) L 03/21/18 05:15 Iron 42 ug/dL (49-181) L 03/14/18 07:00 TIBC 262 mcg/dL (250-450) 03/14/18 07:00 Ferritin 532.4 ng/mL (13.0-400.0) H 03/14/18 07:00 Total Bilirubin 2.30 mg/dL (0.1-1.2) H 03/12/18 06:29 Direct Bilirubin 1.5 mg/dL (0-0.2) H 03/12/18 06:29 Indirect Bilirubin 0.8 mg/dL 03/12/18 06:29 AST 33 units/L (5-40) 03/12/18 06:29 ALT 48 units/L (7-56) 03/12/18 06:29 Alkaline Phosphatase 111 units/L (35-129) 03/12/18 06:29 Lactate Dehydrogenase 232 units/L (91-180) H 03/17/18 04:25 Total Creatine Kinase 33 units/L (55-170) L 03/17/18 04:25 NT-Pro-B Natriuret Pep 94603 pg/mL (0-450) H 03/10/18 11:16 Total Protein 6.2 g/dL (6.3-8.2) L 03/12/18 06:29 Albumin 3.1 g/dL (3.9-5) L 03/12/18 06:29 Albumin/Globulin Ratio 1.0 % 03/12/18 06:29 Triglycerides 177 mg/dL (2-149) H 03/19/18 06:00 Vitamin B12 1825 pg/mL (211-911) H 03/14/18 07:00 Folate 6.29 ng/mL (7.3-26.0) L 03/14/18 07:00 Urine Color Red (Yellow) 03/10/18 06:00 Urine Turbidity Cloudy (Clear) 03/10/18 06:00 Urine pH 5.0 (5.0-7.0) 03/10/18 06:00 Ur Specific [place] 1.009 (1.003-1.030) 03/10/18 06:00 Urine Protein 100 mg/dl mg/dL (Negative) 03/10/18 06:00 Urine Glucose (UA) Neg mg/dL (Negative) 03/10/18 06:00 Urine Ketones Neg mg/dL (Negative) 03/10/18 06:00 Urine Blood Lg (Negative) 03/10/18 06:00 Urine Nitrite Neg (Negative) 03/10/18 06:00 Urine Bilirubin Neg (Negative) 03/10/18 06:00 Urine Urobilinogen < 2.0 mg/dL (<2.0) 03/10/18 06:00 Ur Leukocyte Esterase Neg (Negative) 03/10/18 06:00 Urine WBC (Auto) 32.0 /HPF (0.0-6.0) H 03/10/18 06:00 Urine RBC (Auto) > 182.0 /HPF (0.0-6.0) 03/10/18 06:00 U Epithel Cells (Auto) 5.0 /HPF (0-13.0) 03/09/18 14:39 Urine Bacteria (Auto) 2+ /HPF (Negative) 03/10/18 06:00 Urine WBC Clumps Few /HPF 03/09/18 14:39 Amorphous Crystals 3+ 03/10/18 06:00 Granular Casts 29 /LPF 03/10/18 06:00 Urine Creatinine 210.7 mg/dL (0.1-20.0) H 03/09/18 14:39 Protein/Creatinin Ratio 3.89 03/09/18 14:39 Urine Sodium 81 mmol/L 03/14/18 18:50 Urine Total Protein 820 mg/dL (5-11.8) H 03/09/18 14:39 Urine Opiates Screen Presumptive negative 03/16/18 Unknown Urine Methadone Screen Presumptive negative 03/16/18 Unknown Ur Barbiturates Screen Presumptive negative 03/16/18 Unknown Ur Phencyclidine Scrn Presumptive negative 03/16/18 Unknown Ur Amphetamines Screen Presumptive negative 03/16/18 Unknown U Benzodiazepines Scrn Presumptive negative 03/16/18 Unknown Urine Cocaine Screen Presumptive negative 03/16/18 Unknown U Marijuana (THC) Screen Presumptive positive 03/16/18 Unknown Drugs of Abuse Note Disclamer 03/16/18 Unknown FELICIA Screen Negative (Negative) 03/10/18 11:16 Proteinase 3 (PR3) Ab <1.0 AI (<1.0) 03/10/18 11:16 Myeloperoxidase Ab <1.0 AI (<1.0) 03/10/18 11:16 Glomerular Base Mem IgG See scanned result 03/10/18 11:16 Complement C3 83 mg/dL (82-185) 03/10/18 11:16 Complement C4 30 mg/dL (15-53) 03/10/18 11:16 Lymph Enumerat CD4/CD8 0.56 (0.86-5.00) L 03/10/18 18:15 % CD3 Cells 67 % (57-85) 03/10/18 18:15 Absolute CD3 Count 524 cells/uL (840-3060) L 03/10/18 18:15 % CD4 Cells 24 % (30-61) L 03/10/18 18:15 Absolute CD4 Count 194 cells/uL (490-1740) L 03/10/18 18:15 % CD8 Cells 43 % (12-42) H 03/10/18 18:15 Absolute CD8 Count 344 cells/uL (180-1170) 03/10/18 18:15 % CD19 Cells 25 % (6-29) 03/10/18 18:15 Absolute CD19 Count 188 cells/uL (110-660) 03/10/18 18:15 Hepatitis A IgM Ab Non-reactive (NonReactive) 03/09/18 20:39 Hep Bs Antigen Non-reactive (Negative) 03/09/18 20:39 Hep B Core IgM Ab Non-reactive (NonReactive) 03/09/18 20:39 Hepatitis C Antibody Non-reactive (NonReactive) 03/09/18 20:39 HIV-1 Antibody See scanned result 03/09/18 20:39 HIV-1 RNA PCR copies/ml 22760 Copies/mL H 03/10/18 18:15 HIV-1 RNA (PCR) log 4.71 Log cps/mL H 03/10/18 18:15 HIV-2 Ab (Immunoblot) See scanned result 03/09/18 20:39 HIV 1&2 Antibody Rapid Reactive (Non React) 03/09/18 20:39 HIV P24 Antigen Non react (Non React) 03/09/18 20:39 Influenza A (Rapid) Negative (Negative) 03/09/18 Unknown Influenza B (Rapid) Negative (Negative) 03/09/18 Unknown Schistocytes Smear Rare 03/10/18 11:16 Miscellaneous Test Flexitest 1 03/12/18 16:45 Blood Type O POSITIVE 03/09/18 12:36 Antibody Screen Negative 03/09/18 12:36 Nutrition/Malnutrition Assess - Dietary Evaluation Nutrition/Malnutrition Findings: Nutrition Notes Start: 03/12/18 12:51 Freq: Status: Active Protocol: Document 03/19/18 14:34 OL (Rec: 03/19/18 14:38 OL [id number]) Nutrition Notes Initial or Follow up Reassessment Current Diagnosis Acute Kidney Injury Sepsis Respiratory Failure Other Pertinent Diagnosis HIV Current Diet NPO Labs/Tests Reviewed Pertinent Medications propofol at 16.32mL/hr ( provides 431 lipid kcal) Height 5 ft 11 in Weight 78.3 kg [place] Body Weight (lbs) 172.0 BMI 24.0 Subjective/Other Information Osmolite 1.5 infusing at 20mL/ hr. Spoke with pt.'s mother regarding TF; answered questions accordingly. TF restarted today per RN. Orders updated in chart. Burn Absent Trauma Absent #2 Nutrition Diagnosis Inadequate oral intake Diagnosis Progress(for reassessment Continues documentation) Is patient on ventilator? Yes Is Patient Ambulatory and/or Out of Bed No REE-([facility]-confined to bed) [phone] Calculation Used for Recommendations [facility] Additional Notes Protein needs are 94-157g (1.2 -2g/kg) Fluid needs are 1ml/kcal Nutrition Intervention Change Diet Order: TF Nutrition Support: Osmolite 1.5 at 60mL/hr. 200mL free water flush q4h Kcal 2,160 Protein (gm) 90 Fluid (mL) 1,097 Goal #1 TF to meet at least 80% protein and kcal needs Anticipated Discharge Needs: Unable to determine at this time Follow-Up By: 03/22/18 Additional Comments f/u: TF to goal
--- NOTE | 2018-03-22 13:08 | Progress Note ---
Assessment and Plan Cultures: 03/09/2018 blood culture: Hemophilus hemolyticus in both sets 03/09/2018 influenza rapid: Negative 03/10/2018 urine culture: Negative 03/12/2018 Resp culture: usual resp thomas. 03/12/2018 Crypto Ag serum: negative. 03/13/2018 blood culture BAL 03/18/2018 +MRSA A/P: 33/M with no medical history, admitted with: 1) Septic shock: resolved; etio ? H. flu bacteremia. Much improved. S/P BAL 03/18/2018 +MRSA. On IV Vancomycin. 2) Acute respiratory failure: now on vent. Initial CXR not suggestive of pneumonia, low suspicion for PJP pneumonia especially since patient reported a good recent CD4 count. Repeat CXRs are probably more suggestive of fluid overload / pulmonary edema which has steadily been improving with diuretics. Continue PCP prophylaxis. 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 Initial CXR not suggestive of pneumonia. Repeat blood cultures neg. CT chest showed possible LLL infiltrate/atelectasis/mucous plugging. Completed 10 days of Cefepime. 4) HIV disease: Apparently he has been HIV positive, used to be on meds - Genvoya but stopped taking it 6 months ago, states his last CD4 count was 400+. - RC2=008 / VL 51,300 on 03/10/2018. Now that platelet issues and renal issues resolved, started bactrim and d/seamus Atovaquone. 5) Acute renal failure: resolved. 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 resolved [id number] normal. FELICIA neg, ANCA neg. C3 low (unclear significance), C4 normal. Hematology following. 6) Cardiomyopathy: low EF. etiology unclear. ?HIV related. Cardiology following. Recs: - continue IV vancomycin to cover empirically for MRSA pneumonia/tracheobronchitis D4 today, plan for total 7 days - continue PO Bactrim DS 1 tab daily for prophylaxis Kaylyn Vasquez MD [facility] C: [phone] O: [phone] F: [phone] Subjective Date of service: 03/22/18 Principal diagnosis: ITP Interval history: Patient was extubated today. Doing well. On nasal cannula. Denies any complaints. Objective - Exam Narrative Exam: Physical Exam: Constitutional: awake, alert, no distress. Head, Ears, Nose: Normocephalic, atraumatic. External ears, nose normal Eyes: Conjunctivae/corneas clear. No icterus. No ptosis. Neck: Supple, no meningeal signs Oral: no thrush Cardiovascular: S1, S2 normal, no murmur Respiratory: Good air entry, clear to auscultation bilaterally GI: bowel sounds normal. No peritoneal signs Musculoskeletal: No pedal edema, no cyanosis. Skin: No rash or abscess Hem/Lymphatic: No palpable cervical or supraclavicular nodes. No lymphangitis Psych: calm, no agitation Neurological: awake, alert, answering basic questions. - Constitutional Vitals: Vital Signs Temp Pulse Resp BP Pulse Ox 99.6 F 107 H 18 128/63 98 03/22/18 08:00 03/22/18 09:03 03/22/18 09:03 03/22/18 09:03 03/22/18 11:25 Temperature -Last 24 Hours Temperature 99.6 F Temperature 99.8 F Temperature 99.4 F Temperature 100.4 F Temperature 98.7 F - Labs CBC & Chem 7: 03/21/18 08:25 03/21/18 05:15 Labs: Abnormal lab results 03/21/18 03/21/18 03/22/18 Range/Units 13:39 18:04 00:15 POC ABG pCO2 50.9 H (35-45) POC ABG pO2 60 L (80-105) POC Glucose 119 H 125 H (70-105) 03/22/18 03/22/18 Range/Units 05:28 05:36 POC ABG pCO2 (35-45) POC ABG pO2 155 H (80-105) POC Glucose 140 H (70-105) - Imaging and cardiology Chest x-ray: report reviewed, image reviewed (much improved, minimal right sided air space disease)
[2018-03-23] MEDS: VANCOMYCIN 1,250 MG in NACL 0.9% 250ML 250 ML IV SCH ×3 (05:10→20:19)
[2018-03-23] MEDS: SENOKOT S PO SCH (05:11)
[2018-03-23] MEDS: HumaLOG SUB-Q SCH ×3 (05:12→18:06)
[2018-03-23] MEDS: SODIUM CHLORIDE FLUSH SYRINGE 10 ML IV SCH ×2 (07:43→11:10)
--- NOTE | 2018-03-23 08:24 | Hem/Onc Progress Note ---
Assessment and Plan 1. Thrombocytopenia. I reviewed the peripheral smear. I spoke to the cytology laboratory manager. The laboratory report mentioned no schistocytes. When I reviewed the smear it did not have any schistocytes. Creatinine is elevated. The patient is short of breath. 2. At this time, differential includes some idiopathic thrombocytopenic purpura. Other differentials include immunosuppression related or medication or infection related. The patient's PT, PTT is elevated, but fibrinogen is not low. At admission, chest x-ray was clear and now it has worsened. There is a clinical suspicion of this being infection or disseminated intravascular coagulation or acute respiratory distress syndrome. 3. Renal impairment. 4. Decreased urine output. 5. h/o Shortness of breath. 6. Human immunodeficiency virus, pt was on treatment. 7. discussed with IDT. 8. steroid trial. 9. BNP was elevated. 10. I ordered [id number]. 11. Abnormal liver function tests. 12. Being treated for Haemophilus influenzae. 13. CD4 count 400. I will follow the patient during inpatient stay. 03/11/2018 - d/w dr garrison - low EF pt is on dexa 40 daily s/p plt transfusion no active bleeding 03/12/2018 s/p plt transfusion on dexa intubated d/w lab reg [id number] HIV d/w dr ojeda 03/15 - low folate plt better once plt >100 - will look into altering steroids as per nurse - good urine OP 03/16/2017 - pt plt are better - will follow off pressors 03/17/2018 - hb low as s iron was low - iv iron trial plt 85 - ct dexa for now - once >100 will look into changing ADAMTS - report not seen 03/18/2018 - plt 140s - change dexa to prednisone hb better good urine OP still on vent' 03/19/2018 on vent plt stable - on oral prednisone 03/21/2018 - hb low - will repeat same plt stable - pt on prednsione - ct same for now 03/23 - pt off vent wants to go home pt on prednisone will follow as OP - Patient Problems (1) Thrombocytopenia Current Visit: Yes Status: Acute Subjective Date of service: 03/23/18 Principal diagnosis: itp Interval history: extubated Objective - Constitutional Vitals: Last Vital Signs Temp 99 F 03/23/18 03:37 Pulse 72 01/16/19 06:31 Resp 19 03/23/18 06:31 BP 116/74 03/23/18 06:31 Pulse Ox 99 03/23/18 07:18 Pain Intensity (0-10): denies any pain General appearance: mild distress (sob) Performance status: 3-limited selfcare - EENT Eyes: EOM intact ENT: hearing intact Lymph node exam: negative cervical, negative supraclavicular - Respiratory Respiratory effort: Positive: other (slight SOB) Respiratory: bilateral: diminished - Cardiovascular Heart Sounds: Present: S1 & S2 Extremities: No edema - Gastrointestinal General gastrointestinal: Present: soft, non-tender Rectal Exam: deferred - Genitourinary Male genitourinary: Present: deferred - Integumentary Integumentary: warm - Musculoskeletal Musculoskeletal: strength equal bilaterally - Neurologic Neurologic: moves all extremities - Labs Lab Results: Laboratory Results - last 24 hr 03/22/18 03/22/18 03/22/18 11:55 12:10 17:13 POC Glucose 99 133 H Vancomycin Trough 19.7 03/22/18 03/23/18 23:45 05:09 POC Glucose 119 H 112 H Vancomycin Trough Medications & Allergies - Medications Allergies/Adverse Reactions: Allergies clindamycin Allergy (Verified 03/09/18 06:43) Swelling Home Medications: Home Medications Medication Instructions Recorded Confirmed Last Taken Type No Known Home Medications [No 03/09/18 03/09/18 Unknown History Reported Home Medications] Active Medications: Generic Name Dose Route Start Last Admin Trade Name Freq PRN Reason Stop Dose Admin Lipase/Protease/Amylase 1 each 03/14/18 16:04 Pancre[place]den [place] 10,500 Unit FEEDTUBE PRN PRN For Clogged Feeding Tube Dextrose 50 ml 03/09/18 16:15 03/19/18 06:17 D50w (25gm) Syringe IV 50 ml PRN PRN Administration HYPOGLYCEMIA Fentanyl 50 mcg 03/14/18 09:44 03/18/18 02:38 Sublimaze IV 50 mcg Q2H PRN Administration Pain , Severe (7-10) Folic Acid 1 mg 03/15/18 10:00 03/22/18 09:44 Folvite PO 1 mg QDAY LIU Administration Hydrophilic Ointment 1 applic 03/12/18 07:47 03/13/18 11:34 Vaseline Lip Therapy TP 1 applic Q2HR PRN Administration Dry Lips Norepinephrine 4 mg in 250 mls @ 7.5 mls/hr 03/09/18 23:45 03/12/18 13:57 Levophed Drip 4 Mg/Ns 250 Ml IV 0 mcg/min TITR LIU 0 mls/hr Titration Protocol 2 MCG/MIN Propofol 1,000 mg in 100 mls @ 2.721 mls/hr 03/12/18 08:00 03/22/18 13:12 Diprivan 10 Mg/Ml IV 0 mcg/kg/min TITR LIU 0 mls/hr Titration Protocol 5 MCG/KG/MIN Fentanyl Citrate 2,000 mcg in 100 mls @ 4.535 mls/hr 03/14/18 10:00 03/22/18 13:20 Fentanyl Drip Premix IV 0 mcg/kg/hr TITR LIU 0 mls/hr Titration Protocol 1 MCG/KG/HR Midazolam HCl 100 mg/ Sodium 100 mls @ 2 mls/hr 03/15/18 19:00 03/22/18 13:24 Chloride IV 0 mg/hr TITR LIU 0 mls/hr Titration Protocol 2 MG/HR Dopamine HCl/Dextrose 800 mg in 250 mls @ 2.936 mls/hr 03/18/18 01:00 Intropin Drip 800 Mg/D5w 250 Ml IV TITR LIU Protocol 2 MCG/KG/MIN Vancomycin HCl 1,250 mg/ 275 mls @ 166.667 mls/hr 03/20/18 20:00 03/23/18 05:10 Sodium Chloride IV 166.667 mls/hr Q8H LIU Administration Insulin Human Lispro 0 unit 03/14/18 12:00 03/23/18 05:12 Humalog SUB-Q Not Given Q6HR [facility] Protocol Lansoprazole 30 mg 03/14/18 10:00 03/22/18 09:45 Prevacid Solutab FEEDTUBE 30 mg QDAY LIU Administration Lorazepam 1 mg 03/22/18 11:21 Ativan IV Q4H PRN Agitation Midazolam HCl 2 mg 03/15/18 18:03 03/17/18 10:31 Versed IV 2 mg Q10MIN PRN Administration Sedation Multi-Ingred Cream/Lotion/Oil/Oint 1 applic 03/12/18 07:47 Artificial Tears Ophth Oint OU Q4HR PRN Dry Eye(s) Ondansetron HCl 4 mg 03/14/18 08:00 Zofran IV Q8H PRN Nausea And Vomiting Prednisone 50 mg 03/18/18 10:00 03/22/18 09:44 Deltasone PO 50 mg QDAY LIU Administration Quetiapine Fumarate 50 mg 03/18/18 11:00 03/23/18 07:43 Seroquel PO Not Given BID LIU Senna/Docusate Sodium 2 tab 03/16/18 11:00 03/23/18 05:11 Senokot S PO Not Given BID LIU Simple Syrup 15 ml 03/14/18 16:04 Simple Syrup FEEDTUBE PRN PRN Hypoglycemia Simple Syrup 30 ml 03/14/18 16:04 Simple Syrup FEEDTUBE PRN PRN Hypoglycemia Sodium Chloride 10 ml 03/09/18 22:00 03/23/18 07:43 Sodium Chloride Flush Syringe 10 Ml IV Not Given BID LIU Sodium Chloride 10 ml 03/09/18 10:41 Sodium Chloride Flush Syringe 10 Ml IV PRN PRN LINE FLUSH Trimethoprim/Sulfamethoxazole 1 each 03/22/18 10:00 03/22/18 09:44 Bactrim Ds PO 1 each DAILY LIU Administration
[2018-03-23] MEDS: DELTASONE PO SCH (11:11)
[2018-03-23] MEDS: PREVACID SOLUTAB FEEDTUBE SCH (11:11)
[2018-03-23] MEDS: BACTRIM DS PO SCH (11:11)
[2018-03-23] MEDS: FOLVITE PO SCH (11:11)
--- NOTE | 2018-03-23 11:18 | Progress Note ---
Assessment and Plan Cultures: 03/09/2018 blood culture: Hemophilus hemolyticus in both sets 03/09/2018 influenza rapid: Negative 03/10/2018 urine culture: Negative 03/12/2018 Resp culture: usual resp thomas. 03/12/2018 Crypto Ag serum: negative. 03/13/2018 blood culture BAL 03/18/2018 +MRSA A/P: 33/M with no medical history, admitted with: 1) Septic shock: resolved; etio ? H. flu bacteremia. Much improved. S/P BAL 03/18/2018 +MRSA. On IV Vancomycin. 2) Acute respiratory failure: Initial CXR not suggestive of pneumonia, low suspicion for PJP pneumonia especially since patient reported a good recent CD4 count. Repeat CXRs are probably more suggestive of fluid overload / pulmonary e lucila which has steadily been improving with diuretics. Continue PCP prophylaxis. 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 Initial CXR not suggestive of pneumonia. Repeat blood cultures neg. CT chest showed possible LLL infiltrate/atelectasis/mucous plugging. Completed 10 days of Cefepime. 4) HIV disease: Apparently he has been HIV positive, used to be on meds - Genvoya but stopped taking it 6 months ago, states his last CD4 count was 400+. - XJ4=044 / VL 51,300 on 03/10/2018. Now that platelet issues and renal issues resolved, started bactrim and d/seamus Atovaquone. 5) Acute renal failure: resolved. 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 [id number] normal. FELICIA neg, ANCA neg. C3 low (unclear significance), C4 normal. Hematology following. 6) Cardiomyopathy: low EF. etiology unclear. ?HIV related. Cardiology following. Recs: - continue IV vancomycin to cover empirically for MRSA pneumonia/t racheobronchitis D5 today, plan for total 7 days - continue PO Bactrim DS 1 tab daily for prophylaxis - Patient will follow up with his outside HIV provider to resume Genvoya upon discharge MD [facility] C: [phone] O: [phone] F: [phone] Subjective Date of service: 03/23/18 Principal diagnosis: itp Interval history: No fever. Some confusion. Breathing better, still on oxygen. No diarrhea or abdominal pain. Objective - Exam Narrative Exam: Physical Exam: Constitutional: awake, alert, no distress. Head, Ears, Nose: Normocephalic, atraumatic. External ears, nose normal Eyes: Conjunctivae/corneas clear. No icterus. No ptosis. Neck: Supple, no meningeal signs Oral: no thrush Cardiovascular: S1, S2 normal, no murmur Respiratory: Good air entry, clear to auscultation bilaterally GI: soft, bowel sounds normal. No peritoneal signs Musculoskeletal: No pedal edema, no cyanosis. Skin: No rash or abscess Hem/Lymphatic: No palpable cervical or supraclavicular nodes. No lymphangitis Psych: calm, no agitation Neurological: awake, alert, answering questions. - Constitutional Vitals: Vital Signs Temp Pulse Resp BP Pulse Ox 99 F 70 15 126/71 100 03/23/18 03:37 03/23/18 09:00 03/23/18 09:00 03/23/18 09:00 03/23/18 09:00 Temperature -Last 24 Hours Temperature 99 F Temperature 99.4 F Temperature 98.9 F Temperature 97.4 F Temperature 98.7 F - Labs CBC & Chem 7: 03/21/18 08:25 03/21/18 05:15 Labs: Abnormal lab results 03/22/18 03/22/18 03/23/18 Range/Units 17:13 23:45 05:09 POC Glucose 133 H 119 H 112 H (70-105)
--- NOTE | 2018-03-23 11:19 | Progress Note ---
Assessment and Plan 33 y/o male with thrombocytopenia, renal failure, and hypotension. 1. Mother now knows all diagnosis. 2. Hold on lasix therapy today. 3. Wean FiO2 for sats >88% 4. Follow up any new ID, renal recs. 5. May need some scheduled haldol if truly agitation post extubation. 6. Will keep PRN ativan but will add PRN haldol and stop scheduled seroquel 7. Stable for transfer to tele floor, especially with new diagnosis of systolic heart failure. Subjective Date of service: 03/23/18 Principal diagnosis: itp Interval history: Successful extubation on yesterday. Currently on HFNC at 20 and 40%. Mother at bedside. Patient is confused, likely some mild delirium. He did not get any antipsychotics this am. Calm and easily re-directed. HR in the 70's. Objective Vital Signs - 12hr 03/22/18 03/22/18 03/23/18 23:24 23:30 00:00 Temperature 99.4 F Pulse Rate 91 H 95 H Pulse Rate [ From Monitor] Pulse Rate [ 79 Right Dorsalis Pedis] Respiratory 24 25 H Rate Blood Pressure 122/76 129/70 O2 Sat by Pulse 99 100 Oximetry 03/23/18 03/23/18 03/23/18 00:30 01:00 01:30 Temperature Pulse Rate 93 H 86 89 Pulse Rate [ From Monitor] Pulse Rate [ Right Dorsalis Pedis] Respiratory 23 22 22 Rate Blood Pressure 129/70 107/55 107/55 O2 Sat by Pulse 100 98 99 Oximetry 03/23/18 03/23/18 03/23/18 02:00 02:30 03:00 Temperature Pulse Rate 77 82 77 Pulse Rate [ From Monitor] Pulse Rate [ Right Dorsalis Pedis] Respiratory 23 22 21 Rate Blood Pressure 115/68 115/68 116/73 O2 Sat by Pulse 98 98 98 Oximetry 03/23/18 03/23/18 03/23/18 03:31 03:37 04:00 Temperature 99 F Pulse Rate 93 H 79 Pulse Rate [ From Monitor] Pulse Rate [ 81 Right Dorsalis Pedis] Respiratory 15 15 Rate Blood Pressure 115/68 116/74 O2 Sat by Pulse 99 96 Oximetry 03/23/18 03/23/18 03/23/18 04:31 05:00 05:27 Temperature Pulse Rate 85 87 Pulse Rate [ From Monitor] Pulse Rate [ Right Dorsalis Pedis] Respiratory 17 25 H Rate Blood Pressure 116/74 124/76 O2 Sat by Pulse 99 99 99 Oximetry 03/23/18 03/23/18 03/23/18 05:31 06:00 06:31 Temperature Pulse Rate 81 78 72 Pulse Rate [ From Monitor] Pulse Rate [ Right Dorsalis Pedis] Respiratory 20 22 19 Rate Blood Pressure 124/76 116/74 116/74 O2 Sat by Pulse 99 100 100 Oximetry 03/23/18 03/23/18 03/23/18 07:00 07:18 07:31 Temperature Pulse Rate 68 82 Pulse Rate [ From Monitor] Pulse Rate [ Right Dorsalis Pedis] Respiratory 19 18 Rate Blood Pressure 117/72 117/72 O2 Sat by Pulse 99 99 98 Oximetry 03/23/18 03/23/18 03/23/18 08:00 08:31 09:00 Temperature Pulse Rate 79 74 70 Pulse Rate [ 84 From Monitor] Pulse Rate [ Right Dorsalis Pedis] Respiratory 16 22 15 Rate Blood Pressure 112/49 112/49 126/71 O2 Sat by Pulse 99 99 100 Oximetry Constitutional: no acute distress, other (on vent [id number] Eyes: non-icteric ENT: oropharynx dry, other (orally intubated and sedated) Neck: supple Effort: mildly labored Ascultation: Bilateral: clear, diminished breath sounds, rales (OCCASIONAL), rhonchi Percussion: Bilateral: not dull Cardiovascular: regular rate and rhythm, other (sinus tach) Gastrointestinal: normoactive bowel sounds, non-tender Integumentary: normal Extremities: no cyanosis, no edema, pink and warm Neurologic: unable to assess, other (RA SS -1) CBC and BMP: 03/21/18 08:25 03/21/18 05:15 ABG, PT/INR, D-dimer: ABG POC ABG pH 7.447 (7.35-7.45) 03/22/18 05:28 POC ABG pCO2 41.9 (35-45) 03/22/18 05:28 POC ABG pO2 155 (80-105) H 03/22/18 05:28 POC ABG HCO3 28.9 03/22/18 05:28 POC ABG Total CO2 30 03/22/18 05:28 POC ABG O2 Sat 99 03/22/18 05:28 PT/INR, D-dimer PT 17.2 Sec. (12.2-14.9) H 03/10/18 18:15 INR 1.36 (0.87-1.13) H 03/10/18 18:15 Abnormal lab findings: Abnormal Labs 03/09/18 03/09/18 03/09/18 07:00 07:00 07:00 WBC RBC Hgb Hct RDW 15.5 H Plt Count 25 L Lymph % (Auto) Lymph # Seg Neutrophils % Seg Neuts % (Manual) 90.0 H Lymphocytes % (Manual) 5.0 L Monocytes % (Manual) Seg Neutrophils # Seg Neutrophils # Man Abs Lymphs (Manual) Lymphocytes # (Manual) 0.4 L Monocytes # (Manual) PT 22.9 H INR 1.98 H APTT Fibrinogen POC ABG pH POC ABG pCO2 POC ABG pO2 VBG pH Sodium 135 L Potassium Chloride 90.8 L Carbon Dioxide 17 L BUN 45 H Creatinine 5.8 H Glucose 72 L POC Glucose Lactic Acid Calcium 7.6 L Phosphorus Magnesium Iron Ferritin Total Bilirubin Direct Bilirubin Alkaline Phosphatase 154 H Lactate Dehydrogenase Total Creatine Kinase NT-Pro-B Natriuret Pep Total Protein Albumin 3.6 L Triglycerides Vitamin B12 Folate Urine WBC (Auto) Urine Creatinine Urine Total Protein Complement C3 Lymph Enumerat CD4/CD8 Absolute CD3 Count % CD4 Cells Absolute CD4 Count % CD8 Cells HIV-1 RNA PCR copies/ml HIV-1 RNA (PCR) log 03/09/18 03/09/18 03/09/18 07:00 07:00 07:00 WBC RBC Hgb Hct RDW Plt Count Lymph % (Auto) Lymph # Seg Neutrophils % Seg Neuts % (Manual) Lymphocytes % (Manual) Monocytes % (Manual) Seg Neutrophils # Seg Neutrophils # Man Abs Lymphs (Manual) Lymphocytes # (Manual) Monocytes # (Manual) PT INR APTT Fibrinogen POC ABG pH POC ABG pCO2 POC ABG pO2 VBG pH 7.297 L Sodium Potassium Chloride Carbon Dioxide BUN Creatinine Glucose POC Glucose Lactic Acid 6.80 H* Calcium Phosphorus 5.40 H Magnesium 1.20 L Iron Ferritin Total Bilirubin Direct Bilirubin Alkaline Phosphatase Lactate Dehydrogenase Total Creatine Kinase 228 H NT-Pro-B Natriuret Pep Total Protein Albumin Triglycerides Vitamin B12 Folate Urine WBC (Auto) Urine Creatinine Urine Total Protein Complement C3 Lymph Enumerat CD4/CD8 Absolute CD3 Count % CD4 Cells Absolute CD4 Count % CD8 Cells HIV-1 RNA PCR copies/ml HIV-1 RNA (PCR) log 03/09/18 03/09/18 03/09/18 09:22 12:36 14:39 WBC RBC Hgb Hct RDW Plt Count Lymph % (Auto) Lymph # Seg Neutrophils % Seg Neuts % (Manual) Lymphocytes % (Manual) Monocytes % (Manual) Seg Neutrophils # Seg Neutrophils # Man Abs Lymphs (Manual) Lymphocytes # (Manual) Monocytes # (Manual) PT INR APTT Fibrinogen POC ABG pH POC ABG pCO2 POC ABG pO2 VBG pH Sodium Potassium Chloride Carbon Dioxide BUN Creatinine Glucose POC Glucose Lactic Acid 5.90 H* 8.30 H* Calcium Phosphorus Magnesium Iron Ferritin Total Bilirubin Direct Bilirubin Alkaline Phosphatase Lactate Dehydrogenase Total Creatine Kinase NT-Pro-B Natriuret Pep Total Protein Albumin Triglycerides Vitamin B12 Folate Urine WBC (Auto) 86.0 H Urine Creatinine Urine Total Protein Complement C3 Lymph Enumerat CD4/CD8 Absolute CD3 Count % CD4 Cells Absolute CD4 Count % CD8 Cells HIV-1 RNA PCR copies/ml HIV-1 RNA (PCR) log 03/09/18 03/09/18 03/09/18 14:39 14:39 15:12 WBC RBC Hgb Hct RDW Plt Count Lymph % (Auto) Lymph # Seg Neutrophils % Seg Neuts % (Manual) Lymphocytes % (Manual) Monocytes % (Manual) Seg Neutrophils # Seg Neutrophils # Man Abs Lymphs (Manual) Lymphocytes # (Manual) Monocytes # (Manual) PT INR APTT Fibrinogen POC ABG pH POC ABG pCO2 POC ABG pO2 VBG pH Sodium Potassium Chloride Carbon Dioxide BUN Creatinine Glucose POC Glucose Lactic Acid 5.90 H* Calcium Phosphorus Magnesium Iron Ferritin Total Bilirubin Direct Bilirubin Alkaline Phosphatase Lactate Dehydrogenase Total Creatine Kinase NT-Pro-B Natriuret Pep Total Protein Albumin Triglycerides Vitamin B12 Folate Urine WBC (Auto) Urine Creatinine 217.1 H 210.7 H Urine Total Protein 820 H Complement C3 Lymph Enumerat CD4/CD8 Absolute CD3 Count % CD4 Cells Absolute CD4 Count % CD8 Cells HIV-1 RNA PCR copies/ml HIV-1 RNA (PCR) log 03/09/18 03/09/18 03/09/18 15:53 18:20 20:39 WBC RBC Hgb Hct RDW Plt Count Lymph % (Auto) Lymph # Seg Neutrophils % Seg Neuts % (Manual) Lymphocytes % (Manual) Monocytes % (Manual) Seg Neutrophils # Seg Neutrophils # Man Abs Lymphs (Manual) Lymphocytes # (Manual) Monocytes # (Manual) PT INR APTT Fibrinogen POC ABG pH POC ABG pCO2 POC ABG pO2 VBG pH Sodium Potassium Chloride Carbon Dioxide BUN Creatinine Glucose POC Glucose 56 L Lactic Acid 5.10 H* 4.40 H* Calcium Phosphorus Magnesium Iron Ferritin Total Bilirubin Direct Bilirubin Alkaline Phosphatase Lactate Dehydrogenase Total Creatine Kinase NT-Pro-B Natriuret Pep Total Protein Albumin Triglycerides Vitamin B12 Folate Urine WBC (Auto) Urine Creatinine Urine Total Protein Complement C3 Lymph Enumerat CD4/CD8 Absolute CD3 Count % CD4 Cells Absolute CD4 Count % CD8 Cells HIV-1 RNA PCR copies/ml HIV-1 RNA (PCR) log 03/09/18 03/09/18 03/09/18 20:39 21:33 23:08 WBC RBC Hgb Hct RDW Plt Count Lymph % (Auto) Lymph # Seg Neutrophils % Seg Neuts % (Manual) Lymphocytes % (Manual) Monocytes % (Manual) Seg Neutrophils # Seg Neutrophils # Man Abs Lymphs (Manual) Lymphocytes # (Manual) Monocytes # (Manual) PT INR APTT Fibrinogen POC ABG pH POC ABG pCO2 POC ABG pO2 VBG pH Sodium Potassium Chloride Carbon Dioxide BUN Creatinine Glucose POC Glucose Lactic Acid 4.90 H* 4.10 H* Calcium Phosphorus Magnesium Iron Ferritin Total Bilirubin Direct Bilirubin Alkaline Phosphatase Lactate Dehydrogenase Total Creatine Kinase NT-Pro-B Natriuret Pep Total Protein Albumin Triglycerides Vitamin B12 Folate Urine WBC (Auto) Urine Creatinine Urine Total Protein Complement C3 77 L Lymph Enumerat CD4/CD8 Absolute CD3 Count % CD4 Cells Absolute CD4 Count % CD8 Cells HIV-1 RNA PCR copies/ml HIV-1 RNA (PCR) log 03/10/18 03/10/18 03/10/18 01:00 04:40 04:40 WBC 11.8 H RBC Hgb 11.7 L Hct RDW Plt Count 8 L* Lymph % (Auto) Lymph # Seg Neutrophils % Seg Neuts % (Manual) 93.0 H Lymphocytes % (Manual) 4.0 L Monocytes % (Manual) Seg Neutrophils # Seg Neutrophils # Man 11.0 H Abs Lymphs (Manual) Lymphocytes # (Manual) 0.5 L Monocytes # (Manual) PT INR APTT Fibrinogen POC ABG pH POC ABG pCO2 POC ABG pO2 VBG pH Sodium 136 L Potassium Chloride 96.6 L Carbon Dioxide 21 L BUN 62 H Creatinine 4.9 H Glucose POC Glucose Lactic Acid 4.10 H* Calcium 6.2 L D Phosphorus Magnesium Iron Ferritin Total Bilirubin Direct Bilirubin Alkaline Phosphatase Lactate Dehydrogenase Total Creatine Kinase NT-Pro-B Natriuret Pep Total Protein Albumin Triglycerides Vitamin B12 Folate Urine WBC (Auto) Urine Creatinine Urine Total Protein Complement C3 Lymph Enumerat CD4/CD8 Absolute CD3 Count % CD4 Cells Absolute CD4 Count % CD8 Cells HIV-1 RNA PCR copies/ml HIV-1 RNA (PCR) log 03/10/18 03/10/18 03/10/18 05:32 06:00 09:10 WBC RBC Hgb Hct RDW Plt Count Lymph % (Auto) Lymph # Seg Neutrophils % Seg Neuts % (Manual) Lymphocytes % (Manual) Monocytes % (Manual) Seg Neutrophils # Seg Neutrophils # Man Abs Lymphs (Manual) Lymphocytes # (Manual) Monocytes # (Manual) PT INR APTT Fibrinogen POC ABG pH 7.254 L POC ABG pCO2 47.8 H POC ABG pO2 59 L VBG pH Sodium Potassium Chloride Carbon Dioxide BUN Creatinine Glucose POC Glucose 56 L Lactic Acid Calcium Phosphorus Magnesium Iron Ferritin Total Bilirubin Direct Bilirubin Alkaline Phosphatase Lactate Dehydrogenase Total Creatine Kinase NT-Pro-B Natriuret Pep Total Protein Albumin Triglycerides Vitamin B12 Folate Urine WBC (Auto) 32.0 H Urine Creatinine Urine Total Protein Complement C3 Lymph Enumerat CD4/CD8 Absolute CD3 Count % CD4 Cells Absolute CD4 Count % CD8 Cells HIV-1 RNA PCR copies/ml HIV-1 RNA (PCR) log 03/10/18 03/10/18 03/10/18 09:14 11:16 11:16 WBC RBC Hgb Hct RDW Plt Count Lymph % (Auto) Lymph # Seg Neutrophils % Seg Neuts % (Manual) Lymphocytes % (Manual) Monocytes % (Manual) Seg Neutrophils # Seg Neutrophils # Man Abs Lymphs (Manual) Lymphocytes # (Manual) Monocytes # (Manual) PT INR APTT Fibrinogen POC ABG pH 7.266 L POC ABG pCO2 POC ABG pO2 VBG pH Sodium Potassium Chloride Carbon Dioxide BUN Creatinine Glucose POC Glucose Lactic Acid Calcium Phosphorus Magnesium Iron Ferritin Total Bilirubin Direct Bilirubin Alkaline Phosphatase Lactate Dehydrogenase 338 H Total Creatine Kinase 404 H NT-Pro-B Natriuret Pep 40199 H Total Protein Albumin Triglycerides Vitamin B12 Folate Urine WBC (Auto) Urine Creatinine Urine Total Protein Complement C3 Lymph Enumerat CD4/CD8 Absolute CD3 Count % CD4 Cells Absolute CD4 Count % CD8 Cells HIV-1 RNA PCR copies/ml HIV-1 RNA (PCR) log 03/10/18 03/10/18 03/10/18 11:51 18:15 18:15 WBC RBC Hgb Hct RDW Plt Count Lymph % (Auto) Lymph # Seg Neutrophils % Seg Neuts % (Manual) Lymphocytes % (Manual) Monocytes % (Manual) Seg Neutrophils # Seg Neutrophils # Man Abs Lymphs (Manual) Lymphocytes # (Manual) Monocytes # (Manual) PT 17.2 H 17.0 H INR 1.36 H 1.34 H APTT 38.5 H Fibrinogen 852 H POC ABG pH POC ABG pCO2 POC ABG pO2 VBG pH Sodium Potassium Chloride Carbon Dioxide BUN Creatinine Glucose POC Glucose 109 H Lactic Acid Calcium Phosphorus Magnesium Iron Ferritin Total Bilirubin Direct Bilirubin Alkaline Phosphatase Lactate Dehydrogenase Total Creatine Kinase NT-Pro-B Natriuret Pep Total Protein Albumin Triglycerides Vitamin B12 Folate Urine WBC (Auto) Urine Creatinine Urine Total Protein Complement C3 Lymph Enumerat CD4/CD8 Absolute CD3 Count % CD4 Cells Absolute CD4 Count % CD8 Cells HIV-1 RNA PCR copies/ml HIV-1 RNA (PCR) log 03/10/18 03/10/18 03/10/18 18:15 18:15 19:45 WBC RBC Hgb Hct RDW Plt Count Lymph % (Auto) Lymph # Seg Neutrophils % Seg Neuts % (Manual) Lymphocytes % (Manual) Monocytes % (Manual) Seg Neutrophils # Seg Neutrophils # Man Abs Lymphs (Manual) 779 L Lymphocytes # (Manual) Monocytes # (Manual) PT INR APTT Fibrinogen POC ABG pH POC ABG pCO2 POC ABG pO2 VBG pH Sodium Potassium Chloride Carbon Dioxide BUN Creatinine Glucose POC Glucose 136 H Lactic Acid Calcium Phosphorus Magnesium Iron Ferritin Total Bilirubin Direct Bilirubin Alkaline Phosphatase Lactate Dehydrogenase Total Creatine Kinase NT-Pro-B Natriuret Pep Total Protein Albumin Triglycerides Vitamin B12 Folate Urine WBC (Auto) Urine Creatinine Urine Total Protein Complement C3 Lymph Enumerat CD4/CD8 0.56 L Absolute CD3 Count 524 L % CD4 Cells 24 L Absolute CD4 Count 194 L % CD8 Cells 43 H HIV-1 RNA PCR copies/ml 51780 H HIV-1 RNA (PCR) log 4.71 H 03/10/18 03/10/18 03/10/18 20:40 22:07 23:06 WBC RBC Hgb Hct RDW Plt Count Lymph % (Auto) Lymph # Seg Neutrophils % Seg Neuts % (Manual) Lymphocytes % (Manual) Monocytes % (Manual) Seg Neutrophils # Seg Neutrophils # Man Abs Lymphs (Manual) Lymphocytes # (Manual) Monocytes # (Manual) PT INR APTT Fibrinogen POC ABG pH POC ABG pCO2 POC ABG pO2 VBG pH Sodium Potassium Chloride Carbon Dioxide BUN Creatinine Glucose POC Glucose 135 H 135 H 133 H Lactic Acid Calcium Phosphorus Magnesium Iron Ferritin Total Bilirubin Direct Bilirubin Alkaline Phosphatase Lactate Dehydrogenase Total Creatine Kinase NT-Pro-B Natriuret Pep Total Protein Albumin Triglycerides Vitamin B12 Folate Urine WBC (Auto) Urine Creatinine Urine Total Protein Complement C3 Lymph Enumerat CD4/CD8 Absolute CD3 Count % CD4 Cells Absolute CD4 Count % CD8 Cells HIV-1 RNA PCR copies/ml HIV-1 RNA (PCR) log 03/11/18 03/11/18 03/11/18 00:07 02:01 03:10 WBC RBC Hgb Hct RDW Plt Count Lymph % (Auto) Lymph # Seg Neutrophils % Seg Neuts % (Manual) Lymphocytes % (Manual) Monocytes % (Manual) Seg Neutrophils # Seg Neutrophils # Man Abs Lymphs (Manual) Lymphocytes # (Manual) Monocytes # (Manual) PT INR APTT Fibrinogen POC ABG pH POC ABG pCO2 POC ABG pO2 VBG pH Sodium Potassium Chloride Carbon Dioxide BUN Creatinine Glucose POC Glucose 148 H 161 H 189 H Lactic Acid Calcium Phosphorus Magnesium Iron Ferritin Total Bilirubin Direct Bilirubin Alkaline Phosphatase Lactate Dehydrogenase Total Creatine Kinase NT-Pro-B Natriuret Pep Total Protein Albumin Triglycerides Vitamin B12 Folate Urine WBC (Auto) Urine Creatinine Urine Total Protein Complement C3 Lymph Enumerat CD4/CD8 Absolute CD3 Count % CD4 Cells Absolute CD4 Count % CD8 Cells HIV-1 RNA PCR copies/ml HIV-1 RNA (PCR) log 03/11/18 03/11/18 03/11/18 04:12 04:50 04:50 WBC 12.8 H RBC Hgb 10.9 L Hct 32.5 L RDW 15.3 H Plt Count 17 L* D Lymph % (Auto) Lymph # Seg Neutrophils % Seg Neuts % (Manual) 96.0 H Lymphocytes % (Manual) 2.0 L Monocytes % (Manual) Seg Neutrophils # Seg Neutrophils # Man 12.3 H Abs Lymphs (Manual) Lymphocytes # (Manual) 0.3 L Monocytes # (Manual) PT INR APTT Fibrinogen POC ABG pH POC ABG pCO2 POC ABG pO2 VBG pH Sodium Potassium Chloride 94.2 L Carbon Dioxide BUN 62 H Creatinine 2.7 H Glucose 191 H POC Glucose 188 H Lactic Acid Calcium 7.9 L D Phosphorus Magnesium Iron Ferritin Total Bilirubin Direct Bilirubin Alkaline Phosphatase Lactate Dehydrogenase Total Creatine Kinase NT-Pro-B Natriuret Pep Total Protein Albumin Triglycerides Vitamin B12 Folate Urine WBC (Auto) Urine Creatinine Urine Total Protein Complement C3 Lymph Enumerat CD4/CD8 Absolute CD3 Count % CD4 Cells Absolute CD4 Count % CD8 Cells HIV-1 RNA PCR copies/ml HIV-1 RNA (PCR) log 03/11/18 03/11/18 03/11/18 05:30 05:33 07:47 WBC RBC Hgb Hct RDW Plt Count Lymph % (Auto) Lymph # Seg Neutrophils % Seg Neuts % (Manual) Lymphocytes % (Manual) Monocytes % (Manual) Seg Neutrophils # Seg Neutrophils # Man Abs Lymphs (Manual) Lymphocytes # (Manual) Monocytes # (Manual) PT INR APTT Fibrinogen POC ABG pH POC ABG pCO2 POC ABG pO2 58 L VBG pH Sodium Potassium Chloride Carbon Dioxide BUN Creatinine Glucose POC Glucose 187 H 151 H Lactic Acid Calcium Phosphorus Magnesium Iron Ferritin Total Bilirubin Direct Bilirubin Alkaline Phosphatase Lactate Dehydrogenase Total Creatine Kinase NT-Pro-B Natriuret Pep Total Protein Albumin Triglycerides Vitamin B12 Folate Urine WBC (Auto) Urine Creatinine Urine Total Protein Complement C3 Lymph Enumerat CD4/CD8 Absolute CD3 Count % CD4 Cells Absolute CD4 Count % CD8 Cells HIV-1 RNA PCR copies/ml HIV-1 RNA (PCR) log 03/11/18 03/11/18 03/11/18 12:11 13:18 14:26 WBC RBC Hgb Hct RDW Plt Count Lymph % (Auto) Lymph # Seg Neutrophils % Seg Neuts % (Manual) Lymphocytes % (Manual) Monocytes % (Manual) Seg Neutrophils # Seg Neutrophils # Man Abs Lymphs (Manual) Lymphocytes # (Manual) Monocytes # (Manual) PT INR APTT Fibrinogen POC ABG pH POC ABG pCO2 POC ABG pO2 VBG pH Sodium Potassium Chloride Carbon Dioxide BUN Creatinine Glucose POC Glucose 166 H 157 H 145 H Lactic Acid Calcium Phosphorus Magnesium Iron Ferritin Total Bilirubin Direct Bilirubin Alkaline Phosphatase Lactate Dehydrogenase Total Creatine Kinase NT-Pro-B Natriuret Pep Total Protein Albumin Triglycerides Vitamin B12 Folate Urine WBC (Auto) Urine Creatinine Urine Total Protein Complement C3 Lymph Enumerat CD4/CD8 Absolute CD3 Count % CD4 Cells Absolute CD4 Count % CD8 Cells HIV-1 RNA PCR copies/ml HIV-1 RNA (PCR) log 03/11/18 03/11/18 03/11/18 14:48 15:15 16:17 WBC 21.2 H RBC Hgb 11.0 L Hct 33.8 L RDW Plt Count 15 L* Lymph % (Auto) Lymph # Seg Neutrophils % Seg Neuts % (Manual) 92.0 H Lymphocytes % (Manual) 4.0 L Monocytes % (Manual) Seg Neutrophils # Seg Neutrophils # Man 19.5 H Abs Lymphs (Manual) Lymphocytes # (Manual) 0.8 L Monocytes # (Manual) PT INR APTT Fibrinogen POC ABG pH POC ABG pCO2 POC ABG pO2 VBG pH Sodium Potassium Chloride Carbon Dioxide BUN Creatinine Glucose POC Glucose 139 H 145 H Lactic Acid Calcium Phosphorus Magnesium Iron Ferritin Total Bilirubin Direct Bilirubin Alkaline Phosphatase Lactate Dehydrogenase Total Creatine Kinase NT-Pro-B Natriuret Pep Total Protein Albumin Triglycerides Vitamin B12 Folate Urine WBC (Auto) Urine Creatinine Urine Total Protein Complement C3 Lymph Enumerat CD4/CD8 Absolute CD3 Count % CD4 Cells Absolute CD4 Count % CD8 Cells HIV-1 RNA PCR copies/ml HIV-1 RNA (PCR) log 03/11/18 03/11/18 03/11/18 17:48 20:16 21:02 WBC RBC Hgb Hct RDW Plt Count Lymph % (Auto) Lymph # Seg Neutrophils % Seg Neuts % (Manual) Lymphocytes % (Manual) Monocytes % (Manual) Seg Neutrophils # Seg Neutrophils # Man Abs Lymphs (Manual) Lymphocytes # (Manual) Monocytes # (Manual) PT INR APTT Fibrinogen POC ABG pH POC ABG pCO2 POC ABG pO2 VBG pH Sodium Potassium Chloride Carbon Dioxide BUN Creatinine Glucose POC Glucose 142 H 158 H 146 H Lactic Acid Calcium Phosphorus Magnesium Iron Ferritin Total Bilirubin Direct Bilirubin Alkaline Phosphatase Lactate Dehydrogenase Total Creatine Kinase NT-Pro-B Natriuret Pep Total Protein Albumin Triglycerides Vitamin B12 Folate Urine WBC (Auto) Urine Creatinine Urine Total Protein Complement C3 Lymph Enumerat CD4/CD8 Absolute CD3 Count % CD4 Cells Absolute CD4 Count % CD8 Cells HIV-1 RNA PCR copies/ml HIV-1 RNA (PCR) log 03/11/18 03/12/18 03/12/18 23:14 00:54 06:19 WBC 29.6 H RBC Hgb 10.6 L Hct 31.3 L RDW Plt Count 51 L D Lymph % (Auto) Lymph # Seg Neutrophils % Seg Neuts % (Manual) Lymphocytes % (Manual) Monocytes % (Manual) Seg Neutrophils # Seg Neutrophils # Man Abs Lymphs (Manual) Lymphocytes # (Manual) Monocytes # (Manual) PT INR APTT Fibrinogen POC ABG pH POC ABG pCO2 POC ABG pO2 VBG pH Sodium Potassium Chloride Carbon Dioxide BUN Creatinine Glucose POC Glucose 168 H 185 H Lactic Acid Calcium Phosphorus Magnesium Iron Ferritin Total Bilirubin Direct Bilirubin Alkaline Phosphatase Lactate Dehydrogenase Total Creatine Kinase NT-Pro-B Natriuret Pep Total Protein Albumin Triglycerides Vitamin B12 Folate Urine WBC (Auto) Urine Creatinine Urine Total Protein Complement C3 Lymph Enumerat CD4/CD8 Absolute CD3 Count % CD4 Cells Absolute CD4 Count % CD8 Cells HIV-1 RNA PCR copies/ml HIV-1 RNA (PCR) log 03/12/18 03/12/18 03/12/18 06:29 06:29 06:29 WBC 32.7 H RBC Hgb 10.5 L Hct 31.7 L RDW 15.3 H Plt Count 34 L Lymph % (Auto) Lymph # Seg Neutrophils % Seg Neuts % (Manual) 81.5 H Lymphocytes % (Manual) 7.0 L Monocytes % (Manual) 7.5 H Seg Neutrophils # Seg Neutrophils # Man 26.7 H Abs Lymphs (Manual) Lymphocytes # (Manual) Monocytes # (Manual) 2.5 H PT INR APTT Fibrinogen POC ABG pH POC ABG pCO2 POC ABG pO2 VBG pH Sodium Potassium 3.4 L Chloride Carbon Dioxide BUN 69 H Creatinine 2.2 H Glucose 181 H POC Glucose Lactic Acid Calcium Phosphorus Magnesium Iron Ferritin Total Bilirubin 2.30 H Direct Bilirubin 1.5 H Alkaline Phosphatase Lactate Dehydrogenase Total Creatine Kinase NT-Pro-B Natriuret Pep Total Protein 6.2 L Albumin 3.1 L Triglycerides Vitamin B12 Folate Urine WBC (Auto) Urine Creatinine Urine Total Protein Complement C3 Lymph Enumerat CD4/CD8 Absolute CD3 Count % CD4 Cells Absolute CD4 Count % CD8 Cells HIV-1 RNA PCR copies/ml HIV-1 RNA (PCR) log 03/12/18 03/12/18 03/12/18 07:21 07:44 10:16 WBC RBC Hgb Hct RDW Plt Count Lymph % (Auto) Lymph # Seg Neutrophils % Seg Neuts % (Manual) Lymphocytes % (Manual) Monocytes % (Manual) Seg Neutrophils # Seg Neutrophils # Man Abs Lymphs (Manual) Lymphocytes # (Manual) Monocytes # (Manual) PT INR APTT Fibrinogen POC ABG pH 7.337 L POC ABG pCO2 54.9 H POC ABG pO2 59 L VBG pH Sodium Potassium Chloride Carbon Dioxide BUN Creatinine Glucose POC Glucose 157 H 153 H Lactic Acid Calcium Phosphorus Magnesium Iron Ferritin Total Bilirubin Direct Bilirubin Alkaline Phosphatase Lactate Dehydrogenase Total Creatine Kinase NT-Pro-B Natriuret Pep Total Protein Albumin Triglycerides Vitamin B12 Folate Urine WBC (Auto) Urine Creatinine Urine Total Protein Complement C3 Lymph Enumerat CD4/CD8 Absolute CD3 Count % CD4 Cells Absolute CD4 Count % CD8 Cells HIV-1 RNA PCR copies/ml HIV-1 RNA (PCR) log 03/12/18 03/12/18 03/12/18 12:53 15:22 18:17 WBC RBC Hgb Hct RDW Plt Count Lymph % (Auto) Lymph # Seg Neutrophils % Seg Neuts % (Manual) Lymphocytes % (Manual) Monocytes % (Manual) Seg Neutrophils # Seg Neutrophils # Man Abs Lymphs (Manual) Lymphocytes # (Manual) Monocytes # (Manual) PT INR APTT Fibrinogen POC ABG pH POC ABG pCO2 61.7 H POC ABG pO2 110 H VBG pH Sodium Potassium Chloride Carbon Dioxide BUN Creatinine Glucose POC Glucose 148 H 148 H Lactic Acid Calcium Phosphorus Magnesium Iron Ferritin Total Bilirubin Direct Bilirubin Alkaline Phosphatase Lactate Dehydrogenase Total Creatine Kinase NT-Pro-B Natriuret Pep Total Protein Albumin Triglycerides Vitamin B12 Folate Urine WBC (Auto) Urine Creatinine Urine Total Protein Complement C3 Lymph Enumerat CD4/CD8 Absolute CD3 Count % CD4 Cells Absolute CD4 Count % CD8 Cells HIV-1 RNA PCR copies/ml HIV-1 RNA (PCR) log 03/12/18 03/13/18 03/13/18 21:34 01:14 04:37 WBC RBC Hgb Hct RDW Plt Count Lymph % (Auto) Lymph # Seg Neutrophils % Seg Neuts % (Manual) Lymphocytes % (Manual) Monocytes % (Manual) Seg Neutrophils # Seg Neutrophils # Man Abs Lymphs (Manual) Lymphocytes # (Manual) Monocytes # (Manual) PT INR APTT Fibrinogen POC ABG pH POC ABG pCO2 60.2 H POC ABG pO2 115 H VBG pH Sodium Potassium Chloride Carbon Dioxide BUN Creatinine Glucose POC Glucose 161 H 187 H Lactic Acid Calcium Phosphorus Magnesium Iron Ferritin Total Bilirubin Direct Bilirubin Alkaline Phosphatase Lactate Dehydrogenase Total Creatine Kinase NT-Pro-B Natriuret Pep Total Protein Albumin Triglycerides Vitamin B12 Folate Urine WBC (Auto) Urine Creatinine Urine Total Protein Complement C3 Lymph Enumerat CD4/CD8 Absolute CD3 Count % CD4 Cells Absolute CD4 Count % CD8 Cells HIV-1 RNA PCR copies/ml HIV-1 RNA (PCR) log 03/13/18 03/13/18 03/13/18 05:22 05:22 08:24 WBC 30.4 H RBC 3.45 L Hgb 9.8 L Hct 29.7 L RDW Plt Count 37 L Lymph % (Auto) Lymph # Seg Neutrophils % Seg Neuts % (Manual) 75.5 H Lymphocytes % (Manual) 3.0 L Monocytes % (Manual) Seg Neutrophils # Seg Neutrophils # Man 23.0 H Abs Lymphs (Manual) Lymphocytes # (Manual) 0.9 L Monocytes # (Manual) PT INR APTT Fibrinogen POC ABG pH POC ABG pCO2 POC ABG pO2 VBG pH Sodium 146 H Potassium Chloride Carbon Dioxide 35 H D BUN 71 H Creatinine 1.7 H Glucose 187 H POC Glucose 210 H Lactic Acid Calcium Phosphorus Magnesium Iron Ferritin Total Bilirubin Direct Bilirubin Alkaline Phosphatase Lactate Dehydrogenase Total Creatine Kinase NT-Pro-B Natriuret Pep Total Protein Albumin Triglycerides Vitamin B12 Folate Urine WBC (Auto) Urine Creatinine Urine Total Protein Complement C3 Lymph Enumerat CD4/CD8 Absolute CD3 Count % CD4 Cells Absolute CD4 Count % CD8 Cells HIV-1 RNA PCR copies/ml HIV-1 RNA (PCR) log 03/13/18 03/13/18 03/13/18 12:22 12:44 17:27 WBC RBC Hgb Hct RDW Plt Count Lymph % (Auto) Lymph # Seg Neutrophils % Seg Neuts % (Manual) Lymphocytes % (Manual) Monocytes % (Manual) Seg Neutrophils # Seg Neutrophils # Man Abs Lymphs (Manual) Lymphocytes # (Manual) Monocytes # (Manual) PT INR APTT Fibrinogen POC ABG pH POC ABG pCO2 POC ABG pO2 VBG pH Sodium Potassium Chloride Carbon Dioxide BUN Creatinine Glucose POC Glucose 208 H 169 H Lactic Acid Calcium Phosphorus Magnesium 3.00 H Iron Ferritin Total Bilirubin Direct Bilirubin Alkaline Phosphatase Lactate Dehydrogenase Total Creatine Kinase NT-Pro-B Natriuret Pep Total Protein Albumin Triglycerides Vitamin B12 Folate Urine WBC (Auto) Urine Creatinine Urine Total Protein Complement C3 Lymph Enumerat CD4/CD8 Absolute CD3 Count % CD4 Cells Absolute CD4 Count % CD8 Cells HIV-1 RNA PCR copies/ml HIV-1 RNA (PCR) log 03/13/18 03/14/18 03/14/18 23:35 04:29 05:23 WBC RBC Hgb Hct RDW Plt Count Lymph % (Auto) Lymph # Seg Neutrophils % Seg Neuts % (Manual) Lymphocytes % (Manual) Monocytes % (Manual) Seg Neutrophils # Seg Neutrophils # Man Abs Lymphs (Manual) Lymphocytes # (Manual) Monocytes # (Manual) PT INR APTT Fibrinogen POC ABG pH 7.502 H POC ABG pCO2 53.2 H POC ABG pO2 VBG pH Sodium Potassium Chloride Carbon Dioxide BUN Creatinine Glucose POC Glucose 256 H 212 H Lactic Acid Calcium Phosphorus Magnesium Iron Ferritin Total Bilirubin Direct Bilirubin Alkaline Phosphatase Lactate Dehydrogenase Total Creatine Kinase NT-Pro-B Natriuret Pep Total Protein Albumin Triglycerides Vitamin B12 Folate Urine WBC (Auto) Urine Creatinine Urine Total Protein Complement C3 Lymph Enumerat CD4/CD8 Absolute CD3 Count % CD4 Cells Absolute CD4 Count % CD8 Cells HIV-1 RNA PCR copies/ml HIV-1 RNA (PCR) log 03/14/18 03/14/18 03/14/18 06:00 06:00 06:00 WBC 27.3 H RBC 3.52 L Hgb 10.0 L Hct 30.8 L RDW Plt Count 50 L Lymph % (Auto) Lymph # Seg Neutrophils % Seg Neuts % (Manual) 87.0 H Lymphocytes % (Manual) 3.0 L Monocytes % (Manual) Seg Neutrophils # Seg Neutrophils # Man 23.8 H Abs Lymphs (Manual) Lymphocytes # (Manual) 0.8 L Monocytes # (Manual) 1.6 H PT INR APTT Fibrinogen POC ABG pH POC ABG pCO2 POC ABG pO2 VBG pH Sodium 156 H D Potassium Chloride 109.5 H Carbon Dioxide 37 H BUN 70 H Creatinine Glucose 202 H POC Glucose Lactic Acid Calcium Phosphorus Magnesium Iron Ferritin Total Bilirubin Direct Bilirubin Alkaline Phosphatase Lactate Dehydrogenase Total Creatine Kinase 17 L NT-Pro-B Natriuret Pep Total Protein Albumin Triglycerides Vitamin B12 Folate Urine WBC (Auto) Urine Creatinine Urine Total Protein Complement C3 Lymph Enumerat CD4/CD8 Absolute CD3 Count % CD4 Cells Absolute CD4 Count % CD8 Cells HIV-1 RNA PCR copies/ml HIV-1 RNA (PCR) log 03/14/18 03/14/18 03/14/18 07:00 07:00 07:00 WBC RBC Hgb Hct RDW Plt Count Lymph % (Auto) Lymph # Seg Neutrophils % Seg Neuts % (Manual) Lymphocytes % (Manual) Monocytes % (Manual) Seg Neutrophils # Seg Neutrophils # Man Abs Lymphs (Manual) Lymphocytes # (Manual) Monocytes # (Manual) PT INR APTT Fibrinogen POC ABG pH POC ABG pCO2 POC ABG pO2 VBG pH Sodium Potassium Chloride Carbon Dioxide BUN Creatinine Glucose POC Glucose Lactic Acid Calcium Phosphorus Magnesium Iron 42 L Ferritin 532.4 H Total Bilirubin Direct Bilirubin Alkaline Phosphatase Lactate Dehydrogenase Total Creatine Kinase NT-Pro-B Natriuret Pep Total Protein Albumin Triglycerides Vitamin B12 1825 H Folate Urine WBC (Auto) Urine Creatinine Urine Total Protein Complement C3 Lymph Enumerat CD4/CD8 Absolute CD3 Count % CD4 Cells Absolute CD4 Count % CD8 Cells HIV-1 RNA PCR copies/ml HIV-1 RNA (PCR) log 03/14/18 03/14/18 03/14/18 07:00 07:00 13:01 WBC RBC Hgb Hct RDW Plt Count Lymph % (Auto) Lymph # Seg Neutrophils % Seg Neuts % (Manual) Lymphocytes % (Manual) Monocytes % (Manual) Seg Neutrophils # Seg Neutrophils # Man Abs Lymphs (Manual) Lymphocytes # (Manual) Monocytes # (Manual) PT INR APTT Fibrinogen POC ABG pH POC ABG pCO2 POC ABG pO2 VBG pH Sodium Potassium Chloride Carbon Dioxide BUN Creatinine Glucose POC Glucose 201 H Lactic Acid Calcium Phosphorus Magnesium Iron Ferritin Total Bilirubin Direct Bilirubin Alkaline Phosphatase Lactate Dehydrogenase Total Creatine Kinase NT-Pro-B Natriuret Pep Total Protein Albumin Triglycerides 532 H Vitamin B12 Folate 6.29 L Urine WBC (Auto) Urine Creatinine Urine Total Protein Complement C3 Lymph Enumerat CD4/CD8 Absolute CD3 Count % CD4 Cells Absolute CD4 Count % CD8 Cells HIV-1 RNA PCR copies/ml HIV-1 RNA (PCR) log 03/14/18 03/14/18 03/14/18 17:37 21:04 23:30 WBC RBC Hgb Hct RDW Plt Count Lymph % (Auto) Lymph # Seg Neutrophils % Seg Neuts % (Manual) Lymphocytes % (Manual) Monocytes % (Manual) Seg Neutrophils # Seg Neutrophils # Man Abs Lymphs (Manual) Lymphocytes # (Manual) Monocytes # (Manual) PT INR APTT Fibrinogen POC ABG pH POC ABG pCO2 POC ABG pO2 VBG pH Sodium 155 H Potassium Chloride 114.1 H Carbon Dioxide 33 H BUN 58 H Creatinine Glucose 166 H POC Glucose 179 H 167 H Lactic Acid Calcium Phosphorus Magnesium Iron Ferritin Total Bilirubin Direct Bilirubin Alkaline Phosphatase Lactate Dehydrogenase Total Creatine Kinase NT-Pro-B Natriuret Pep Total Protein Albumin Triglycerides Vitamin B12 Folate Urine WBC (Auto) Urine Creatinine Urine Total Protein Complement C3 Lymph Enumerat CD4/CD8 Absolute CD3 Count % CD4 Cells Absolute CD4 Count % CD8 Cells HIV-1 RNA PCR copies/ml HIV-1 RNA (PCR) log 03/15/18 03/15/18 03/15/18 04:44 04:44 04:44 WBC 26.0 H RBC Hgb 10.5 L Hct 33.0 L RDW Plt Count 70 L Lymph % (Auto) Lymph # Seg Neutrophils % Seg Neuts % (Manual) 91.0 H Lymphocytes % (Manual) 6.0 L Monocytes % (Manual) Seg Neutrophils # Seg Neutrophils # Man 23.7 H Abs Lymphs (Manual) Lymphocytes # (Manual) Monocytes # (Manual) PT INR APTT Fibrinogen POC ABG pH POC ABG pCO2 POC ABG pO2 VBG pH Sodium 155 H Potassium Chloride 114.3 H Carbon Dioxide 31 H BUN 51 H Creatinine Glucose 173 H POC Glucose Lactic Acid Calcium Phosphorus Magnesium 2.80 H Iron Ferritin Total Bilirubin Direct Bilirubin Alkaline Phosphatase Lactate Dehydrogenase Total Creatine Kinase NT-Pro-B Natriuret Pep Total Protein Albumin Triglycerides Vitamin B12 Folate Urine WBC (Auto) Urine Creatinine Urine Total Protein Complement C3 Lymph Enumerat CD4/CD8 Absolute CD3 Count % CD4 Cells Absolute CD4 Count % CD8 Cells HIV-1 RNA PCR copies/ml HIV-1 RNA (PCR) log 03/15/18 03/15/18 03/15/18 04:53 06:36 17:25 WBC RBC Hgb Hct RDW Plt Count Lymph % (Auto) Lymph # Seg Neutrophils % Seg Neuts % (Manual) Lymphocytes % (Manual) Monocytes % (Manual) Seg Neutrophils # Seg Neutrophils # Man Abs Lymphs (Manual) Lymphocytes # (Manual) Monocytes # (Manual) PT INR APTT Fibrinogen POC ABG pH POC ABG pCO2 59.0 H POC ABG pO2 112 H VBG pH Sodium Potassium Chloride Carbon Dioxide BUN Creatinine Glucose POC Glucose 199 H 138 H Lactic Acid Calcium Phosphorus Magnesium Iron Ferritin Total Bilirubin Direct Bilirubin Alkaline Phosphatase Lactate Dehydrogenase Total Creatine Kinase NT-Pro-B Natriuret Pep Total Protein Albumin Triglycerides Vitamin B12 Folate Urine WBC (Auto) Urine Creatinine Urine Total Protein Complement C3 Lymph Enumerat CD4/CD8 Absolute CD3 Count % CD4 Cells Absolute CD4 Count % CD8 Cells HIV-1 RNA PCR copies/ml HIV-1 RNA (PCR) log 03/15/18 03/16/18 03/16/18 23:20 03:59 05:01 WBC 21.9 H RBC Hgb 10.3 L Hct 32.5 L RDW Plt Count 88 L Lymph % (Auto) Lymph # Seg Neutrophils % Seg Neuts % (Manual) 98.0 H Lymphocytes % (Manual) 2.0 L Monocytes % (Manual) Seg Neutrophils # Seg Neutrophils # Man 21.5 H Abs Lymphs (Manual) Lymphocytes # (Manual) 0.4 L Monocytes # (Manual) PT INR APTT Fibrinogen POC ABG pH POC ABG pCO2 46.6 H POC ABG pO2 50 L VBG pH Sodium Potassium Chloride Carbon Dioxide BUN Creatinine Glucose POC Glucose 182 H Lactic Acid Calcium Phosphorus Magnesium Iron Ferritin Total Bilirubin Direct Bilirubin Alkaline Phosphatase Lactate Dehydrogenase Total Creatine Kinase NT-Pro-B Natriuret Pep Total Protein Albumin Triglycerides Vitamin B12 Folate Urine WBC (Auto) Urine Creatinine Urine Total Protein Complement C3 Lymph Enumerat CD4/CD8 Absolute CD3 Count % CD4 Cells Absolute CD4 Count % CD8 Cells HIV-1 RNA PCR copies/ml HIV-1 RNA (PCR) log 03/16/18 03/16/18 03/16/18 05:01 05:01 05:29 WBC RBC Hgb Hct RDW Plt Count Lymph % (Auto) Lymph # Seg Neutrophils % Seg Neuts % (Manual) Lymphocytes % (Manual) Monocytes % (Manual) Seg Neutrophils # Seg Neutrophils # Man Abs Lymphs (Manual) Lymphocytes # (Manual) Monocytes # (Manual) PT INR APTT Fibrinogen POC ABG pH POC ABG pCO2 POC ABG pO2 VBG pH Sodium 148 H Potassium 5.7 H Chloride 112.1 H Carbon Dioxide BUN 41 H Creatinine Glucose 234 H POC Glucose 257 H Lactic Acid Calcium Phosphorus Magnesium Iron Ferritin Total Bilirubin Direct Bilirubin Alkaline Phosphatase Lactate Dehydrogenase Total Creatine Kinase NT-Pro-B Natriuret Pep Total Protein Albumin Triglycerides 212 H Vitamin B12 Folate Urine WBC (Auto) Urine Creatinine Urine Total Protein Complement C3 Lymph Enumerat CD4/CD8 Absolute CD3 Count % CD4 Cells Absolute CD4 Count % CD8 Cells HIV-1 RNA PCR copies/ml HIV-1 RNA (PCR) log 03/16/18 03/16/18 03/16/18 11:30 15:56 17:28 WBC RBC Hgb Hct RDW Plt Count Lymph % (Auto) Lymph # Seg Neutrophils % Seg Neuts % (Manual) Lymphocytes % (Manual) Monocytes % (Manual) Seg Neutrophils # Seg Neutrophils # Man Abs Lymphs (Manual) Lymphocytes # (Manual) Monocytes # (Manual) PT INR APTT Fibrinogen POC ABG pH POC ABG pCO2 POC ABG pO2 VBG pH Sodium Potassium 5.5 H Chloride Carbon Dioxide BUN 39 H Creatinine Glucose 186 H POC Glucose 186 H 153 H Lactic Acid Calcium Phosphorus Magnesium Iron Ferritin Total Bilirubin Direct Bilirubin Alkaline Phosphatase Lactate Dehydrogenase Total Creatine Kinase NT-Pro-B Natriuret Pep Total Protein Albumin Triglycerides Vitamin B12 Folate Urine WBC (Auto) Urine Creatinine Urine Total Protein Complement C3 Lymph Enumerat CD4/CD8 Absolute CD3 Count % CD4 Cells Absolute CD4 Count % CD8 Cells HIV-1 RNA PCR copies/ml HIV-1 RNA (PCR) log 03/16/18 03/17/18 03/17/18 23:48 04:25 04:25 WBC 13.9 H RBC 2.89 L Hgb 8.2 L Hct 27.8 L RDW Plt Count 85 L Lymph % (Auto) Lymph # Seg Neutrophils % Seg Neuts % (Manual) 88.0 H Lymphocytes % (Manual) 4.0 L Monocytes % (Manual) Seg Neutrophils # Seg Neutrophils # Man 12.2 H Abs Lymphs (Manual) Lymphocytes # (Manual) 0.6 L Monocytes # (Manual) PT INR APTT Fibrinogen POC ABG pH POC ABG pCO2 POC ABG pO2 VBG pH Sodium Potassium 5.7 H Chloride 107.5 H Carbon Dioxide BUN 38 H Creatinine Glucose 165 H POC Glucose 131 H Lactic Acid Calcium Phosphorus Magnesium Iron Ferritin Total Bilirubin Direct Bilirubin Alkaline Phosphatase Lactate Dehydrogenase Total Creatine Kinase NT-Pro-B Natriuret Pep Total Protein Albumin Triglycerides Vitamin B12 Folate Urine WBC (Auto) Urine Creatinine Urine Total Protein Complement C3 Lymph Enumerat CD4/CD8 Absolute CD3 Count % CD4 Cells Absolute CD4 Count % CD8 Cells HIV-1 RNA PCR copies/ml HIV-1 RNA (PCR) log 03/17/18 03/17/18 03/17/18 04:25 04:51 05:39 WBC RBC Hgb Hct RDW Plt Count Lymph % (Auto) Lymph # Seg Neutrophils % Seg Neuts % (Manual) Lymphocytes % (Manual) Monocytes % (Manual) Seg Neutrophils # Seg Neutrophils # Man Abs Lymphs (Manual) Lymphocytes # (Manual) Monocytes # (Manual) PT INR APTT Fibrinogen POC ABG pH POC ABG pCO2 45.4 H POC ABG pO2 174 H VBG pH Sodium Potassium Chloride Carbon Dioxide BUN Creatinine Glucose POC Glucose 140 H Lactic Acid Calcium Phosphorus Magnesium Iron Ferritin Total Bilirubin Direct Bilirubin Alkaline Phosphatase Lactate Dehydrogenase 232 H Total Creatine Kinase 33 L NT-Pro-B Natriuret Pep Total Protein Albumin Triglycerides Vitamin B12 Folate Urine WBC (Auto) Urine Creatinine Urine Total Protein Complement C3 Lymph Enumerat CD4/CD8 Absolute CD3 Count % CD4 Cells Absolute CD4 Count % CD8 Cells HIV-1 RNA PCR copies/ml HIV-1 RNA (PCR) log 03/17/18 03/17/18 03/17/18 11:51 14:40 17:40 WBC RBC Hgb Hct RDW Plt Count Lymph % (Auto) Lymph # Seg Neutrophils % Seg Neuts % (Manual) Lymphocytes % (Manual) Monocytes % (Manual) Seg Neutrophils # Seg Neutrophils # Man Abs Lymphs (Manual) Lymphocytes # (Manual) Monocytes # (Manual) PT INR APTT Fibrinogen POC ABG pH POC ABG pCO2 POC ABG pO2 VBG pH Sodium Potassium Chloride Carbon Dioxide BUN 36 H Creatinine Glucose 107 H POC Glucose 122 H 113 H Lactic Acid Calcium Phosphorus Magnesium Iron Ferritin Total Bilirubin Direct Bilirubin Alkaline Phosphatase Lactate Dehydrogenase Total Creatine Kinase NT-Pro-B Natriuret Pep Total Protein Albumin Triglycerides Vitamin B12 Folate Urine WBC (Auto) Urine Creatinine Urine Total Protein Complement C3 Lymph Enumerat CD4/CD8 Absolute CD3 Count % CD4 Cells Absolute CD4 Count % CD8 Cells HIV-1 RNA PCR copies/ml HIV-1 RNA (PCR) log 03/18/18 03/18/18 03/18/18 04:16 04:16 04:48 WBC 14.9 H RBC Hgb 10.8 L Hct 33.3 L RDW Plt Count Lymph % (Auto) Lymph # Seg Neutrophils % Seg Neuts % (Manual) 76.0 H Lymphocytes % (Manual) 5.0 L Monocytes % (Manual) Seg Neutrophils # Seg Neutrophils # Man 11.3 H Abs Lymphs (Manual) Lymphocytes # (Manual) 0.7 L Monocytes # (Manual) PT INR APTT Fibrinogen POC ABG pH POC ABG pCO2 POC ABG pO2 54 L VBG pH Sodium Potassium Chloride Carbon Dioxide BUN 34 H Creatinine Glucose 116 H POC Glucose Lactic Acid Calcium Phosphorus Magnesium Iron Ferritin Total Bilirubin Direct Bilirubin Alkaline Phosphatase Lactate Dehydrogenase Total Creatine Kinase NT-Pro-B Natriuret Pep Total Protein Albumin Triglycerides Vitamin B12 Folate Urine WBC (Auto) Urine Creatinine Urine Total Protein Complement C3 Lymph Enumerat CD4/CD8 Absolute CD3 Count % CD4 Cells Absolute CD4 Count % CD8 Cells HIV-1 RNA PCR copies/ml HIV-1 RNA (PCR) log 03/18/18 03/18/18 03/19/18 05:13 18:40 04:50 WBC RBC Hgb Hct RDW Plt Count Lymph % (Auto) Lymph # Seg Neutrophils % Seg Neuts % (Manual) Lymphocytes % (Manual) Monocytes % (Manual) Seg Neutrophils # Seg Neutrophils # Man Abs Lymphs (Manual) Lymphocytes # (Manual) Monocytes # (Manual) PT INR APTT Fibrinogen POC ABG pH POC ABG pCO2 46.1 H POC ABG pO2 112 H VBG pH Sodium Potassium Chloride Carbon Dioxide BUN Creatinine Glucose POC Glucose 127 H 110 H Lactic Acid Calcium Phosphorus Magnesium Iron Ferritin Total Bilirubin Direct Bilirubin Alkaline Phosphatase Lactate Dehydrogenase Total Creatine Kinase NT-Pro-B Natriuret Pep Total Protein Albumin Triglycerides Vitamin B12 Folate Urine WBC (Auto) Urine Creatinine Urine Total Protein Complement C3 Lymph Enumerat CD4/CD8 Absolute CD3 Count % CD4 Cells Absolute CD4 Count % CD8 Cells HIV-1 RNA PCR copies/ml HIV-1 RNA (PCR) log 03/19/18 03/19/18 03/19/18 05:27 06:00 06:00 WBC 13.0 H RBC 3.43 L Hgb 9.7 L Hct 30.6 L RDW Plt Count Lymph % (Auto) 8.4 L Lymph # 1.1 L Seg Neutrophils % 87.4 H Seg Neuts % (Manual) Lymphocytes % (Manual) Monocytes % (Manual) Seg Neutrophils # 11.4 H Seg Neutrophils # Man Abs Lymphs (Manual) Lymphocytes # (Manual) Monocytes # (Manual) PT INR APTT Fibrinogen POC ABG pH POC ABG pCO2 POC ABG pO2 VBG pH Sodium Potassium Chloride 107.8 H Carbon Dioxide BUN 28 H Creatinine Glucose 220 H POC Glucose 69 L Lactic Acid Calcium 8.1 L Phosphorus Magnesium Iron Ferritin Total Bilirubin Direct Bilirubin Alkaline Phosphatase Lactate Dehydrogenase Total Creatine Kinase NT-Pro-B Natriuret Pep Total Protein Albumin Triglycerides Vitamin B12 Folate Urine WBC (Auto) Urine Creatinine Urine Total Protein Complement C3 Lymph Enumerat CD4/CD8 Absolute CD3 Count % CD4 Cells Absolute CD4 Count % CD8 Cells HIV-1 RNA PCR copies/ml HIV-1 RNA (PCR) log 03/19/18 03/19/18 03/20/18 06:00 17:10 00:01 WBC RBC Hgb Hct RDW Plt Count Lymph % (Auto) Lymph # Seg Neutrophils % Seg Neuts % (Manual) Lymphocytes % (Manual) Monocytes % (Manual) Seg Neutrophils # Seg Neutrophils # Man Abs Lymphs (Manual) Lymphocytes # (Manual) Monocytes # (Manual) PT INR APTT Fibrinogen POC ABG pH POC ABG pCO2 POC ABG pO2 VBG pH Sodium Potassium Chloride Carbon Dioxide BUN Creatinine Glucose POC Glucose 132 H 181 H Lactic Acid Calcium Phosphorus Magnesium Iron Ferritin Total Bilirubin Direct Bilirubin Alkaline Phosphatase Lactate Dehydrogenase Total Creatine Kinase NT-Pro-B Natriuret Pep Total Protein Albumin Triglycerides 177 H Vitamin B12 Folate Urine WBC (Auto) Urine Creatinine Urine Total Protein Complement C3 Lymph Enumerat CD4/CD8 Absolute CD3 Count % CD4 Cells Absolute CD4 Count % CD8 Cells HIV-1 RNA PCR copies/ml HIV-1 RNA (PCR) log 03/20/18 03/20/18 03/20/18 04:00 04:00 04:07 WBC 19.0 H RBC 3.53 L Hgb 10.5 L Hct 31.2 L RDW Plt Count Lymph % (Auto) Lymph # Seg Neutrophils % Seg Neuts % (Manual) 94.0 H Lymphocytes % (Manual) 4.0 L Monocytes % (Manual) Seg Neutrophils # Seg Neutrophils # Man 17.9 H Abs Lymphs (Manual) Lymphocytes # (Manual) 0.8 L Monocytes # (Manual) PT INR APTT Fibrinogen POC ABG pH 7.342 L POC ABG pCO2 48.4 H POC ABG pO2 VBG pH Sodium Potassium Chloride 107.1 H Carbon Dioxide BUN 30 H Creatinine Glucose 143 H POC Glucose Lactic Acid Calcium 8.1 L Phosphorus Magnesium Iron Ferritin Total Bilirubin Direct Bilirubin Alkaline Phosphatase Lactate Dehydrogenase Total Creatine Kinase NT-Pro-B Natriuret Pep Total Protein Albumin Triglycerides Vitamin B12 Folate Urine WBC (Auto) Urine Creatinine Urine Total Protein Complement C3 Lymph Enumerat CD4/CD8 Absolute CD3 Count % CD4 Cells Absolute CD4 Count % CD8 Cells HIV-1 RNA PCR copies/ml HIV-1 RNA (PCR) log 03/20/18 03/20/18 03/20/18 11:31 17:55 23:50 WBC RBC Hgb Hct RDW Plt Count Lymph % (Auto) Lymph # Seg Neutrophils % Seg Neuts % (Manual) Lymphocytes % (Manual) Monocytes % (Manual) Seg Neutrophils # Seg Neutrophils # Man Abs Lymphs (Manual) Lymphocytes # (Manual) Monocytes # (Manual) PT INR APTT Fibrinogen POC ABG pH POC ABG pCO2 POC ABG pO2 VBG pH Sodium Potassium Chloride Carbon Dioxide BUN Creatinine Glucose POC Glucose 136 H 162 H 148 H Lactic Acid Calcium Phosphorus Magnesium Iron Ferritin Total Bilirubin Direct Bilirubin Alkaline Phosphatase Lactate Dehydrogenase Total Creatine Kinase NT-Pro-B Natriuret Pep Total Protein Albumin Triglycerides Vitamin B12 Folate Urine WBC (Auto) Urine Creatinine Urine Total Protein Complement C3 Lymph Enumerat CD4/CD8 Absolute CD3 Count % CD4 Cells Absolute CD4 Count % CD8 Cells HIV-1 RNA PCR copies/ml HIV-1 RNA (PCR) log 03/21/18 03/21/18 03/21/18 04:41 05:15 05:15 WBC RBC 2.37 L Hgb 7.2 L D Hct 21.4 L D RDW Plt Count Lymph % (Auto) 8.9 L Lymph # 1.0 L Seg Neutrophils % 82.1 H Seg Neuts % (Manual) Lymphocytes % (Manual) Monocytes % (Manual) Seg Neutrophils # 8.9 H Seg Neutrophils # Man Abs Lymphs (Manual) Lymphocytes # (Manual) Monocytes # (Manual) PT INR APTT Fibrinogen POC ABG pH 7.344 L POC ABG pCO2 52.8 H POC ABG pO2 140 H VBG pH Sodium Potassium 3.0 L D Chloride 117.5 H Carbon Dioxide 21 L BUN 21 H Creatinine 0.5 L Glucose 118 H POC Glucose Lactic Acid Calcium 6.0 L D Phosphorus 1.90 L D Magnesium Iron Ferritin Total Bilirubin Direct Bilirubin Alkaline Phosphatase Lactate Dehydrogenase Total Creatine Kinase NT-Pro-B Natriuret Pep Total Protein Albumin Triglycerides Vitamin B12 Folate Urine WBC (Auto) Urine Creatinine Urine Total Protein Complement C3 Lymph Enumerat CD4/CD8 Absolute CD3 Count % CD4 Cells Absolute CD4 Count % CD8 Cells HIV-1 RNA PCR copies/ml HIV-1 RNA (PCR) log 03/21/18 03/21/18 03/21/18 05:15 05:23 08:25 WBC RBC Hgb 9.0 L Hct 28.1 L D RDW Plt Count Lymph % (Auto) Lymph # Seg Neutrophils % Seg Neuts % (Manual) Lymphocytes % (Manual) Monocytes % (Manual) Seg Neutrophils # Seg Neutrophils # Man Abs Lymphs (Manual) Lymphocytes # (Manual) Monocytes # (Manual) PT INR APTT Fibrinogen POC ABG pH POC ABG pCO2 POC ABG pO2 VBG pH Sodium Potassium Chloride Carbon Dioxide BUN Creatinine Glucose POC Glucose 159 H Lactic Acid Calcium Phosphorus Magnesium 1.60 L Iron Ferritin Total Bilirubin Direct Bilirubin Alkaline Phosphatase Lactate Dehydrogenase Total Creatine Kinase NT-Pro-B Natriuret Pep Total Protein Albumin Triglycerides Vitamin B12 Folate Urine WBC (Auto) Urine Creatinine Urine Total Protein Complement C3 Lymph Enumerat CD4/CD8 Absolute CD3 Count % CD4 Cells Absolute CD4 Count % CD8 Cells HIV-1 RNA PCR copies/ml HIV-1 RNA (PCR) log 03/21/18 03/21/18 03/21/18 12:27 13:39 18:04 WBC RBC Hgb Hct RDW Plt Count Lymph % (Auto) Lymph # Seg Neutrophils % Seg Neuts % (Manual) Lymphocytes % (Manual) Monocytes % (Manual) Seg Neutrophils # Seg Neutrophils # Man Abs Lymphs (Manual) Lymphocytes # (Manual) Monocytes # (Manual) PT INR APTT Fibrinogen POC ABG pH POC ABG pCO2 50.9 H POC ABG pO2 60 L VBG pH Sodium Potassium Chloride Carbon Dioxide BUN Creatinine Glucose POC Glucose 177 H 119 H Lactic Acid Calcium Phosphorus Magnesium Iron Ferritin Total Bilirubin Direct Bilirubin Alkaline Phosphatase Lactate Dehydrogenase Total Creatine Kinase NT-Pro-B Natriuret Pep Total Protein Albumin Triglycerides Vitamin B12 Folate Urine WBC (Auto) Urine Creatinine Urine Total Protein Complement C3 Lymph Enumerat CD4/CD8 Absolute CD3 Count % CD4 Cells Absolute CD4 Count % CD8 Cells HIV-1 RNA PCR copies/ml HIV-1 RNA (PCR) log 03/22/18 03/22/18 03/22/18 00:15 05:28 05:36 WBC RBC Hgb Hct RDW Plt Count Lymph % (Auto) Lymph # Seg Neutrophils % Seg Neuts % (Manual) Lymphocytes % (Manual) Monocytes % (Manual) Seg Neutrophils # Seg Neutrophils # Man Abs Lymphs (Manual) Lymphocytes # (Manual) Monocytes # (Manual) PT INR APTT Fibrinogen POC ABG pH POC ABG pCO2 POC ABG pO2 155 H VBG pH Sodium Potassium Chloride Carbon Dioxide BUN Creatinine Glucose POC Glucose 125 H 140 H Lactic Acid Calcium Phosphorus Magnesium Iron Ferritin Total Bilirubin Direct Bilirubin Alkaline Phosphatase Lactate Dehydrogenase Total Creatine Kinase NT-Pro-B Natriuret Pep Total Protein Albumin Triglycerides Vitamin B12 Folate Urine WBC (Auto) Urine Creatinine Urine Total Protein Complement C3 Lymph Enumerat CD4/CD8 Absolute CD3 Count % CD4 Cells Absolute CD4 Count % CD8 Cells HIV-1 RNA PCR copies/ml HIV-1 RNA (PCR) log 03/22/18 03/22/18 03/23/18 17:13 23:45 05:09 WBC RBC Hgb Hct RDW Plt Count Lymph % (Auto) Lymph # Seg Neutrophils % Seg Neuts % (Manual) Lymphocytes % (Manual) Monocytes % (Manual) Seg Neutrophils # Seg Neutrophils # Man Abs Lymphs (Manual) Lymphocytes # (Manual) Monocytes # (Manual) PT INR APTT Fibrinogen POC ABG pH POC ABG pCO2 POC ABG pO2 VBG pH Sodium Potassium Chloride Carbon Dioxide BUN Creatinine Glucose POC Glucose 133 H 119 H 112 H Lactic Acid Calcium Phosphorus Magnesium Iron Ferritin Total Bilirubin Direct Bilirubin Alkaline Phosphatase Lactate Dehydrogenase Total Creatine Kinase NT-Pro-B Natriuret Pep Total Protein Albumin Triglycerides Vitamin B12 Folate Urine WBC (Auto) Urine Creatinine Urine Total Protein Complement C3 Lymph Enumerat CD4/CD8 Absolute CD3 Count % CD4 Cells Absolute CD4 Count % CD8 Cells HIV-1 RNA PCR copies/ml HIV-1 RNA (PCR) log
[2018-03-23] MEDS ORDERED: HALDOL IV PRN (11:20)
[2018-03-23] MEDS ORDERED: ATIVAN IV PRN (11:21)
--- NOTE | 2018-03-23 15:40 | Progress Note ---
Assessment and Plan Assessment and plan: 33 yo with HIV infection. He initially presented with nausea, vomiting, general weakness and chills for 2 days. He was getting weaker, no Urine output therefore came to ED for evaluation. In ED, labs show acute kidney injury with metabolic acidosis thrombocytopenia. He was Sepic, hypotensive. 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 He received platelet transfusion and steroids after which she improved * He suffered a SCOTT, which resolved with IV fluids, nephrotoxins are being avoided, his electrolytes have been repleted. He was medically treated for hyperkalemia at some point but then now became hypokalemic and received potassium supplements today * The patient is HIV positive he stopped taking his medications over 6 years ago, management per infectious disease, on prophylaxis antibiotics for opportunistic organisms * The patient had worsening respiratory failure, has been on ventilator since 03/12/2018. He then went on to have bronchoscopy, BAL culture grew MRSA, patient was started on vancomycin on 03/21/18, ID managing * patient extubated on 03/22/18, now on high flow oxygen Diagnoses PNA due to MRSA Septic shock/Haemophilus hemolyticus bacteremia ITP, Thrombocytopenia, stable and improving, Acute hypoxic respiratory failure on MV >96 hours, intubated since 03/12/18 hyperkalemia, then later developed hypokalemia HIV/AIDs SCOTT-ATN Hyponatremia Hypoglycemia. Coagulopathy, Acute toxic metabolic encephalpathy Critical care time 35 minutes The patient does not want his HIV status being discussed with his family. His brother apparently was aware, but his mother wasn't. [facility] had contacted her and told her, so now the mother is also aware History Interval history: no agitation no n/v, no diarrhea sob is improving No fevers, no seizures no vomiting Hospitalist Physical - Physical exam Narrative exam: General.: Appears well, no distress, nontoxic HEENT: Moist mucous membranes, extraocular muscles intact, no lymphadenopathy Neck: supple Cardiac: S1-S2 heard Lungs: CTA BL Abdomen: soft , nontender, nondistended, bowel sounds positive Extremities: no edema clubbing or cyanosis Skin: no rash or lesions Neurologic: no deficits psych, calm and cooperative - Constitutional Vitals: Temp Pulse Resp BP Pulse Ox 98.2 F 68 19 103/59 100 03/23/18 12:00 03/23/18 13:00 03/23/18 13:00 03/23/18 13:00 03/23/18 13:00 General appearance: Present: cachectic, other (chronically ill-appearing) Results - Labs CBC & Chem 7: 03/21/18 08:25 03/21/18 05:15 Labs: Laboratory Last Values WBC 10.9 K/mm3 (4.5-11.0) 03/21/18 05:15 RBC 2.37 M/mm3 (3.65-5.03) L 03/21/18 05:15 Hgb 9.0 gm/dl (11.8-15.2) L 03/21/18 08:25 Hct 28.1 % (35.5-45.6) L D 03/21/18 08:25 MCV 90 fl (84-94) 03/21/18 05:15 MCH 31 pg (28-32) 03/21/18 05:15 MCHC 34 % (32-34) 03/21/18 05:15 RDW 14.3 % (13.2-15.2) 03/21/18 05:15 Plt Count 171 K/mm3 (140-440) 03/21/18 05:15 Lymph % (Auto) 8.9 % (13.4-35.0) L 03/21/18 05:15 Warren % (Auto) 7.1 % (0.0-7.3) 03/21/18 05:15 Eos % (Auto) 1.4 % (0.0-4.3) 03/21/18 05:15 Baso % (Auto) 0.5 % (0.0-1.8) 03/21/18 05:15 Lymph # 1.0 K/mm3 (1.2-5.4) L 03/21/18 05:15 Warren # 0.8 K/mm3 (0.0-0.8) 03/21/18 05:15 Eos # 0.1 K/mm3 (0.0-0.4) 03/21/18 05:15 Baso # 0.1 K/mm3 (0.0-0.1) 03/21/18 05:15 Add Manual Diff Complete 03/20/18 04:00 Total Counted 100 03/20/18 04:00 Seg Neutrophils % 82.1 % (40.0-70.0) H 03/21/18 05:15 Seg Neuts % (Manual) 94.0 % (40.0-70.0) H 03/20/18 04:00 Band Neutrophils % 0 % 03/20/18 04:00 Lymphocytes % (Manual) 4.0 % (13.4-35.0) L 03/20/18 04:00 Reactive Lymphs % (Man) 0 % 03/20/18 04:00 Monocytes % (Manual) 2.0 % (0.0-7.3) 03/20/18 04:00 Eosinophils % (Manual) 0 % (0.0-4.3) 03/20/18 04:00 Basophils % (Manual) 0 % (0.0-1.8) 03/20/18 04:00 Metamyelocytes % 0 % 03/20/18 04:00 Myelocytes % 0 % 03/20/18 04:00 Promyelocytes % 0 % 03/20/18 04:00 Blast Cells % 0 % 03/20/18 04:00 Nucleated RBC % Not Reportable 03/20/18 04:00 Seg Neutrophils # 8.9 K/mm3 (1.8-7.7) H 03/21/18 05:15 Seg Neutrophils # Man 17.9 K/mm3 (1.8-7.7) H 03/20/18 04:00 Band Neutrophils # 0.0 K/mm3 03/20/18 04:00 Abs Lymphs (Manual) 779 cells/uL (850-3900) L 03/10/18 18:15 Lymphocytes # (Manual) 0.8 K/mm3 (1.2-5.4) L 03/20/18 04:00 Abs React Lymphs (Man) 0.0 K/mm3 03/20/18 04:00 Monocytes # (Manual) 0.4 K/mm3 (0.0-0.8) 03/20/18 04:00 Eosinophils # (Manual) 0.0 K/mm3 (0.0-0.4) 03/20/18 04:00 Basophils # (Manual) 0.0 K/mm3 (0.0-0.1) 03/20/18 04:00 Metamyelocytes # 0.0 K/mm3 03/20/18 04:00 Myelocytes # 0.0 K/mm3 03/20/18 04:00 Promyelocytes # 0.0 K/mm3 03/20/18 04:00 Blast Cells # 0.0 K/mm3 03/20/18 04:00 Pathologist Review 03/12/18 06:29 WBC Morphology Not Reportable 03/20/18 04:00 Hypersegmented Neuts Not Reportable 03/20/18 04:00 Hyposegmented Neuts Not Reportable 03/20/18 04:00 Hypogranular Neuts Not Reportable 03/20/18 04:00 Smudge Cells Not Reportable 03/20/18 04:00 Toxic Granulation Not Reportable 03/20/18 04:00 Toxic Vacuolation Not Reportable 03/20/18 04:00 Dohle Bodies Not Reportable 03/20/18 04:00 Pelger-Huet Anomaly Not Reportable 03/20/18 04:00 Kamar Rods Not Reportable 03/20/18 04:00 Platelet Estimate Consistent w auto 03/20/18 04:00 Clumped Platelets Not Reportable 03/20/18 04:00 Plt Clumps, EDTA Not Reportable 03/20/18 04:00 Large Platelets Not Reportable 03/20/18 04:00 Giant Platelets Not Reportable 03/20/18 04:00 Platelet Satelliting Not Reportable 03/20/18 04:00 Plt Morphology Comment Not Reportable 03/20/18 04:00 RBC Morphology Not Reportable 03/20/18 04:00 Dimorphic RBCs Not Reportable 03/20/18 04:00 Polychromasia Not Reportable 03/20/18 04:00 Hypochromasia Not Reportable 03/20/18 04:00 Poikilocytosis Not Reportable 03/20/18 04:00 Anisocytosis 1+ 03/20/18 04:00 Microcytosis Not Reportable 03/20/18 04:00 Macrocytosis Not Reportable 03/20/18 04:00 Spherocytes Not Reportable 03/20/18 04:00 Pappenheimer Bodies Not Reportable 03/20/18 04:00 Sickle Cells Not Reportable 03/20/18 04:00 Target Cells Not Reportable 03/20/18 04:00 Tear Drop Cells Not Reportable 03/20/18 04:00 Ovalocytes Not Reportable 03/20/18 04:00 Stomatocytes Rare 03/14/18 06:00 Helmet Cells Not Reportable 03/20/18 04:00 [place] Bodies Not Reportable 03/20/18 04:00 Lequire Rings Not Reportable 03/20/18 04:00 Lyssa Cells Not Reportable 03/20/18 04:00 Bite Cells Not Reportable 03/20/18 04:00 Crenated Cell Not Reportable 03/20/18 04:00 Elliptocytes Not Reportable 03/20/18 04:00 Acanthocytes (Spur) Not Reportable 03/20/18 04:00 Rouleaux Not Reportable 03/20/18 04:00 Hemoglobin C Crystals Not Reportable 03/20/18 04:00 Schistocytes Not Reportable 03/20/18 04:00 Malaria parasites Not Reportable 03/20/18 04:00 Jose Bodies Not Reportable 03/20/18 04:00 Hem Pathologist Commnt No 03/20/18 04:00 PT 17.2 Sec. (12.2-14.9) H 03/10/18 18:15 INR 1.36 (0.87-1.13) H 03/10/18 18:15 APTT 38.5 Sec. (24.2-36.6) H 03/10/18 18:15 Fibrinogen 852 mg/dl (211-480) H 03/10/18 18:15 POC ABG pH 7.447 (7.35-7.45) 03/22/18 05:28 POC ABG pCO2 41.9 (35-45) 03/22/18 05:28 POC ABG pO2 155 (80-105) H 03/22/18 05:28 POC ABG HCO3 28.9 03/22/18 05:28 POC ABG Total CO2 30 03/22/18 05:28 POC ABG O2 Sat 99 03/22/18 05:28 POC ABG Base Excess 5 03/22/18 05:28 VBG pH 7.297 (7.320-7.420) L 03/09/18 07:00 FiO2 45 % 03/22/18 05:28 Sodium 145 mmol/L (137-145) 03/21/18 05:15 Potassium 3.0 mmol/L (3.6-5.0) L D 03/21/18 05:15 Chloride 117.5 mmol/L (98-107) H 03/21/18 05:15 Carbon Dioxide 21 mmol/L (22-30) L 03/21/18 05:15 Anion Gap 10 mmol/L 03/21/18 05:15 BUN 21 mg/dL (9-20) H 03/21/18 05:15 Creatinine 0.5 mg/dL (0.8-1.5) L 03/21/18 05:15 Estimated GFR > 60 ml/min 03/21/18 05:15 BUN/Creatinine Ratio 42 % 03/21/18 05:15 Glucose 118 mg/dL (75-100) H 03/21/18 05:15 POC Glucose 112 (70-105) H 03/23/18 12:10 Osmolality 256 Mosm/kg 03/14/18 07:00 Lactic Acid 4.10 mmol/L (0.7-2.0) H* 03/10/18 01:00 Uric Acid 3.5 mg/dL (3.5-7.6) 03/17/18 04:25 Calcium 6.0 mg/dL (8.4-10.2) L D 03/21/18 05:15 Phosphorus 3.00 mg/dL (2.5-4.5) 03/23/18 08:44 Magnesium 1.60 mg/dL (1.7-2.3) L 03/21/18 05:15 Iron 42 ug/dL (49-181) L 03/14/18 07:00 TIBC 262 mcg/dL (250-450) 03/14/18 07:00 Ferritin 532.4 ng/mL (13.0-400.0) H 03/14/18 07:00 Total Bilirubin 2.30 mg/dL (0.1-1.2) H 03/12/18 06:29 Direct Bilirubin 1.5 mg/dL (0-0.2) H 03/12/18 06:29 Indirect Bilirubin 0.8 mg/dL 03/12/18 06:29 AST 33 units/L (5-40) 03/12/18 06:29 ALT 48 units/L (7-56) 03/12/18 06:29 Alkaline Phosphatase 111 units/L (35-129) 03/12/18 06:29 Lactate Dehydrogenase 232 units/L (91-180) H 03/17/18 04:25 Total Creatine Kinase 33 units/L (55-170) L 03/17/18 04:25 NT-Pro-B Natriuret Pep 12032 pg/mL (0-450) H 03/10/18 11:16 Total Protein 6.2 g/dL (6.3-8.2) L 03/12/18 06:29 Albumin 3.1 g/dL (3.9-5) L 03/12/18 06:29 Albumin/Globulin Ratio 1.0 % 03/12/18 06:29 Triglycerides 177 mg/dL (2-149) H 03/19/18 06:00 Vitamin B12 1825 pg/mL (211-911) H 03/14/18 07:00 Folate 6.29 ng/mL (7.3-26.0) L 03/14/18 07:00 Urine Color Red (Yellow) 03/10/18 06:00 Urine Turbidity Cloudy (Clear) 03/10/18 06:00 Urine pH 5.0 (5.0-7.0) 03/10/18 06:00 Ur Specific [place] 1.009 (1.003-1.030) 03/10/18 06:00 Urine Protein 100 mg/dl mg/dL (Negative) 03/10/18 06:00 Urine Glucose (UA) Neg mg/dL (Negative) 03/10/18 06:00 Urine Ketones Neg mg/dL (Negative) 03/10/18 06:00 Urine Blood Lg (Negative) 03/10/18 06:00 Urine Nitrite Neg (Negative) 03/10/18 06:00 Urine Bilirubin Neg (Negative) 03/10/18 06:00 Urine Urobilinogen < 2.0 mg/dL (<2.0) 03/10/18 06:00 Ur Leukocyte Esterase Neg (Negative) 03/10/18 06:00 Urine WBC (Auto) 32.0 /HPF (0.0-6.0) H 03/10/18 06:00 Urine RBC (Auto) > 182.0 /HPF (0.0-6.0) 03/10/18 06:00 U Epithel Cells (Auto) 5.0 /HPF (0-13.0) 03/09/18 14:39 Urine Bacteria (Auto) 2+ /HPF (Negative) 03/10/18 06:00 Urine WBC Clumps Few /HPF 03/09/18 14:39 Amorphous Crystals 3+ 03/10/18 06:00 Granular Casts 29 /LPF 03/10/18 06:00 Urine Creatinine 210.7 mg/dL (0.1-20.0) H 03/09/18 14:39 Protein/Creatinin Ratio 3.89 03/09/18 14:39 Urine Sodium 81 mmol/L 03/14/18 18:50 Urine Total Protein 820 mg/dL (5-11.8) H 03/09/18 14:39 Vancomycin Trough 19.7 ug/mL (5.0-20.0) 03/22/18 12:10 Urine Opiates Screen Presumptive negative 03/16/18 Unknown Urine Methadone Screen Presumptive negative 03/16/18 Unknown Ur Barbiturates Screen Presumptive negative 03/16/18 Unknown Ur Phencyclidine Scrn Presumptive negative 03/16/18 Unknown Ur Amphetamines Screen Presumptive negative 03/16/18 Unknown U Benzodiazepines Scrn Presumptive negative 03/16/18 Unknown Urine Cocaine Screen Presumptive negative 03/16/18 Unknown U Marijuana (THC) Screen Presumptive positive 03/16/18 Unknown Drugs of Abuse Note Disclamer 03/16/18 Unknown FELICIA Screen Negative (Negative) 03/10/18 11:16 Proteinase 3 (PR3) Ab <1.0 AI (<1.0) 03/10/18 11:16 Myeloperoxidase Ab <1.0 AI (<1.0) 03/10/18 11:16 Glomerular Base Mem IgG See scanned result 03/10/18 11:16 Complement C3 83 mg/dL (82-185) 03/10/18 11:16 Complement C4 30 mg/dL (15-53) 03/10/18 11:16 Lymph Enumerat CD4/CD8 0.56 (0.86-5.00) L 03/10/18 18:15 % CD3 Cells 67 % (57-85) 03/10/18 18:15 Absolute CD3 Count 524 cells/uL (840-3060) L 03/10/18 18:15 % CD4 Cells 24 % (30-61) L 03/10/18 18:15 Absolute CD4 Count 194 cells/uL (490-1740) L 03/10/18 18:15 % CD8 Cells 43 % (12-42) H 03/10/18 18:15 Absolute CD8 Count 344 cells/uL (180-1170) 03/10/18 18:15 % CD19 Cells 25 % (6-29) 03/10/18 18:15 Absolute CD19 Count 188 cells/uL (110-660) 03/10/18 18:15 Hepatitis A IgM Ab Non-reactive (NonReactive) 03/09/18 20:39 Hep Bs Antigen Non-reactive (Negative) 03/09/18 20:39 Hep B Core IgM Ab Non-reactive (NonReactive) 03/09/18 20:39 Hepatitis C Antibody Non-reactive (NonReactive) 03/09/18 20:39 HIV-1 Antibody See scanned result 03/09/18 20:39 HIV-1 RNA PCR copies/ml 64580 Copies/mL H 03/10/18 18:15 HIV-1 RNA (PCR) log 4.71 Log cps/mL H 03/10/18 18:15 HIV-2 Ab (Immunoblot) See scanned result 03/09/18 20:39 HIV 1&2 Antibody Rapid Reactive (Non React) 03/09/18 20:39 HIV P24 Antigen Non react (Non React) 03/09/18 20:39 Influenza A (Rapid) Negative (Negative) 03/09/18 Unknown Influenza B (Rapid) Negative (Negative) 03/09/18 Unknown Schistocytes Smear Rare 03/10/18 11:16 Miscellaneous Test Flexitest 1 03/12/18 16:45 Blood Type O POSITIVE 03/09/18 12:36 Antibody Screen Negative 03/09/18 12:36 Nutrition/Malnutrition Assess - Dietary Evaluation Nutrition/Malnutrition Findings: Nutrition Notes Start: 03/12/18 12:51 Freq: Status: Active Protocol: Document 03/22/18 13:55 OCTAVIO (Rec: 03/22/18 14:44 OCTAVIO [email or web address]) Co-Sign 03/22/18 13:55 NHALL Nutrition Notes Initial or Follow up Reassessment Current Diagnosis Acute Kidney Injury Sepsis Respiratory Failure Other Pertinent Diagnosis HIV Current Diet NPO Labs/Tests Reviewed Pertinent Medications Reviewed Height 5 ft 11 in Weight 70.2 kg [place] Body Weight (lbs) 172.0 BMI 21.6 Subjective/Other Information F/u for TF rate. Pt. TF on hold for the time being per MD . Pt. is to be extubated today . Burn Absent Trauma Absent #2 Nutrition Diagnosis Inadequate oral intake Diagnosis Progress(for reassessment Continues documentation) Is patient on ventilator? Yes Is Patient Ambulatory and/or Out of Bed No REE-([facility]-confined to bed) 1998.368 Calculation Used for Recommendations [facility] Additional Notes PRO: 84-140g (1.2-2g/kg) Fluid: 1ml/kcal Nutrition Intervention Change Diet Order: Advance diet Nutrition Support: Resume TF Goal #1 Restart TF or advance diet when medically feasible Anticipated Discharge Needs: Unable to determine at this time Follow-Up By: 03/24/18 Additional Comments F/u: TF restart/diet advancement
[2018-03-23] MEDS ORDERED: TYLENOL PO PRN (23:28)
[2018-03-24] MEDS ORDERED: TYLENOL PO PRN (00:05)
[2018-03-24] MEDS: TYLENOL PO PRN ×3 (00:27→18:27)
[2018-03-24] MEDS: HumaLOG SUB-Q SCH ×4 (00:30→18:17)
[2018-03-24] MEDS: SODIUM CHLORIDE FLUSH SYRINGE 10 ML IV SCH ×3 (00:31→22:43)
[2018-03-24] MEDS: VANCOMYCIN 1,250 MG in NACL 0.9% 250ML 250 ML IV SCH ×3 (03:49→20:00)
[2018-03-24 07:54] LABS: Basophils # (Auto) 0.1 K/mm3 (0.0-0.1); Basophils % (Auto) 1.1 % (0.0-1.8); Eosinophils # (Auto) 0.1 K/mm3 (0.0-0.4); Eosinophils % (Auto) 1.4 % (0.0-4.3); Hematocrit 30.7 % (35.5-45.6); Lymphocytes # (Auto) 1.3 K/mm3 (1.2-5.4); Lymphocytes % (Auto) 14.9 % (13.4-35.0); Mean Corpuscular HGB Conc 33 % (32-34); Mean Corpuscular Volume 87 fl (84-94); Monocytes # (Auto) 1.2 K/mm3 (0.0-0.8); Monocytes % (Auto) 14.3 % (0.0-7.3); Platelet Count 226 K/mm3 (140-440); Red Blood Count 3.53 M/mm3 (3.65-5.03); Red Cell Distribution Width 14.2 % (13.2-15.2)
[2018-03-24 08:06] LABS: BUN/Creatinine Ratio 18; Blood Urea Nitrogen 14 mg/dL (9-20); Calcium 8.4 mg/dL (8.4-10.2); Hemolysis Index 5
--- NOTE | 2018-03-24 08:15 | Hem/Onc Progress Note ---
Assessment and Plan 1. Thrombocytopenia. I reviewed the peripheral smear. I spoke to the union laborer. The laboratory report mentioned no schistocytes. When I reviewed the smear it did not have any schistocytes. Creatinine is elevated. The patient is short of breath. 2. At this time, differential includes some idiopathic thrombocytopenic purpura. Other differentials include immunosuppression related or medication or infection related. The patient's PT, PTT is elevated, but fibrinogen is not low. At admission, chest x-ray was clear and now it has worsened. There is a clinical suspicion of this being infection or disseminated intravascular coagulation or acute respiratory distress syndrome. 3. Renal impairment. 4. Decreased urine output. 5. h/o Shortness of breath. 6. Human immunodeficiency virus, pt was on treatment. 7. discussed with IDT. 8. steroid trial. 9. BNP was elevated. 10. I ordered [id number]. 11. Abnormal liver function tests. 12. Being treated for Haemophilus influenzae. 13. CD4 count 400. I will follow the patient during inpatient stay. 03/11/2018 - d/w dr garrison - low EF pt is on dexa 40 daily s/p plt transfusion no active bleeding 03/12/2018 s/p plt transfusion on dexa intubated d/w lab reg [id number] HIV d/w dr ojeda 03/15 - low folate plt better once plt >100 - will look into altering steroids as per nurse - good urine OP 03/16/2017 - pt plt are better - will follow off pressors 03/17/2018 - hb low as s iron was low - iv iron trial plt 85 - ct dexa for now - once >100 will look into changing ADAMTS - report not seen 03/18/2018 - plt 140s - change dexa to prednisone hb better good urine OP still on vent' 03/19/2018 on vent plt stable - on oral prednisone 03/21/2018 - hb low - will repeat same plt stable - pt on prednsione - ct same for now 03/23 - pt off vent wants to go home pt on prednisone will follow as OP 03/24 - pt wants to go home lowered the dose of prednisone to 40 d/w pulm team - Patient Problems (1) Thrombocytopenia Status: Acute Subjective Date of service: 03/24/18 Principal diagnosis: ITP Interval history: feeling better Objective - Constitutional Vitals: Last Vital Signs Temp 98.0 F 03/24/18 04:09 Pulse 86 03/24/18 04:09 Resp 18 03/24/18 04:09 BP 125/72 03/24/18 04:09 Pulse Ox 98 03/24/18 04:09 Pain Intensity (0-10): denies any pain General appearance: no acute distress Performance status: 2- selfcare, ambulatory - EENT Eyes: EOM intact ENT: clear oral mucosa Lymph node exam: negative cervical, negative supraclavicular - Neck Neck: normal ROM - Respiratory Respiratory effort: Positive: normal Respiratory: bilateral: CTA - Cardiovascular Heart Sounds: Present: S1 & S2 Extremities: No edema - Gastrointestinal General gastrointestinal: Present: soft, non-tender Rectal Exam: deferred - Genitourinary Male genitourinary: Present: deferred - Integumentary Integumentary: warm - Musculoskeletal Musculoskeletal: strength equal bilaterally - Neurologic Neurologic: moves all extremities - Psychiatric Psychiatric: appropriate mood/affect - Labs Lab Results: Laboratory Results - last 24 hr 03/23/18 03/23/18 03/23/18 08:44 12:10 17:40 WBC RBC Hgb Hct MCV MCH MCHC RDW Plt Count Lymph % (Auto) Mcminn % (Auto) Eos % (Auto) Baso % (Auto) Lymph # Mcminn # Eos # Baso # Seg Neutrophils % Seg Neutrophils # Sodium Potassium Chloride Carbon Dioxide Anion Gap BUN Creatinine Estimated GFR BUN/Creatinine Ratio Glucose POC Glucose 112 H 116 H Calcium Phosphorus 3.00 03/24/18 03/24/18 03/24/18 00:29 05:44 07:34 WBC 8.5 RBC 3.53 L Hgb 10.0 L Hct 30.7 L MCV 87 MCH 28 MCHC 33 RDW 14.2 Plt Count 226 Lymph % (Auto) 14.9 Mcminn % (Auto) 14.3 H Eos % (Auto) 1.4 Baso % (Auto) 1.1 Lymph # 1.3 Mcminn # 1.2 H Eos # 0.1 Baso # 0.1 Seg Neutrophils % 68.3 Seg Neutrophils # 5.8 Sodium Potassium Chloride Carbon Dioxide Anion Gap BUN Creatinine Estimated GFR BUN/Creatinine Ratio Glucose POC Glucose 89 149 H Calcium Phosphorus 03/24/18 07:34 WBC RBC Hgb Hct MCV MCH MCHC RDW Plt Count Lymph % (Auto) Mcminn % (Auto) Eos % (Auto) Baso % (Auto) Lymph # Mcminn # Eos # Baso # Seg Neutrophils % Seg Neutrophils # Sodium 137 D Potassium 4.0 D Chloride 102.2 Carbon Dioxide 24 Anion Gap 15 BUN 14 Creatinine 0.8 D Estimated GFR > 60 BUN/Creatinine Ratio 18 Glucose 105 H POC Glucose Calcium 8.4 D Phosphorus Medications & Allergies - Medications Allergies/Adverse Reactions: Allergies clindamycin Allergy (Verified 03/09/18 06:43) Swelling Home Medications: Home Medications Medication Instructions Recorded Confirmed Last Taken Type Prednisone [predniSONE 5 mg (6-Day 5 mg PO .TAPER #1 tab.ds.pk 03/25/18 Unknown Rx Pack, 21 Tabs)] Sulfamethoxazole/Trimethoprim 1 each PO DAILY #30 tablet 03/25/18 Unknown Rx [Bactrim DS TAB] Active Medications: Generic Name Dose Route Start Last Admin Trade Name Freq PRN Reason Stop Dose Admin Acetaminophen 650 mg 03/24/18 01:00 03/24/18 00:27 Tylenol PO 650 mg Q4H PRN Administration Pain, Mild (1-3) Lipase/Protease/Amylase 1 each 03/14/18 16:[address] 10,500 Unit FEEDTUBE PRN PRN For Clogged Feeding Tube Dextrose 50 ml 03/09/18 16:15 03/19/18 06:17 D50w (25gm) Syringe IV 50 ml PRN PRN Administration HYPOGLYCEMIA Folic Acid 1 mg 03/15/18 10:00 03/23/18 11:11 Folvite PO 1 mg QDAY LIU Administration Haloperidol Lactate 5 mg 03/23/18 11:20 Haldol IV Q6H PRN Agitation Hydrophilic Ointment 1 applic 03/12/18 07:47 03/13/18 11:34 Vaseline Lip Therapy TP 1 applic Q2HR PRN Administration Dry Lips Vancomycin HCl 1,250 mg/ 275 mls @ 166.667 mls/hr 03/20/18 20:00 03/24/18 03:49 Sodium Chloride IV 166.667 mls/hr Q8H LIU Administration Insulin Human Lispro 0 unit 03/14/18 12:00 03/24/18 05:44 Humalog SUB-Q Not Given Q6HR LIU Protocol Lansoprazole 30 mg 03/14/18 10:00 03/23/18 11:11 Prevacid Solutab FEEDTUBE 30 mg QDAY LIU Administration Lorazepam 1 mg 03/23/18 11:21 Ativan IV Q6H PRN Agitation Multi-Ingred Cream/Lotion/Oil/Oint 1 applic 03/12/18 07:47 Artificial Tears Ophth Oint OU Q4HR PRN Dry Eye(s) Ondansetron HCl 4 mg 03/14/18 08:00 Zofran IV Q8H PRN Nausea And Vomiting Prednisone 50 mg 03/18/18 10:00 03/23/18 11:11 Deltasone PO 03/24/18 23:59 50 mg QDAY LIU Administration Simple Syrup 15 ml 03/14/18 16:04 Simple Syrup FEEDTUBE PRN PRN Hypoglycemia Simple Syrup 30 ml 03/14/18 16:04 Simple Syrup FEEDTUBE PRN PRN Hypoglycemia Sodium Chloride 10 ml 03/09/18 22:00 03/24/18 00:31 Sodium Chloride Flush Syringe 10 Ml IV 10 ml BID LIU Administration Sodium Chloride 10 ml 03/09/18 10:41 Sodium Chloride Flush Syringe 10 Ml IV PRN PRN LINE FLUSH Trimethoprim/Sulfamethoxazole 1 each 03/22/18 10:00 03/23/18 11:11 Bactrim Ds PO 1 each DAILY LIU Administration
--- NOTE | 2018-03-24 10:20 | Progress Note ---
Assessment and Plan A/P: 33/M with no medical history, admitted with: 1) Septic shock: resolved; etio ? H. flu bacteremia. Much improved. S/P BAL 03/18/2018 +MRSA. On IV Vancomycin. 2) Acute respiratory failure: Initial CXR not suggestive of pneumonia, low suspicion for PJP pneumonia especially since patient reported a good recent CD4 count. Repeat CXRs are probably more suggestive of fluid overload / pulmonary edema which has steadily been improving with diuretics. Continue PCP prophylaxis. 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 Initial CXR not suggestive of pneumonia. Repeat blood cultures neg. CT chest showed possible LLL infiltrate/atelectasis/mucous plugging. Completed 10 days of Cefepime. 4) HIV disease: Apparently he has been HIV positive, used to be on meds - Genvoya but stopped taking it 6 months ago, states his last CD4 count was 400+. - LI3=618 / VL 51,300 on 03/10/2018. Now that platelet issues and renal issues resolved, started bactrim and d/seamus Atovaquone. 5) Acute renal failure: resolved. 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 [id number] normal. FELICIA neg, ANCA neg. C3 low (unclear significance), C4 normal. Hematology following. 6) Cardiomyopathy: low EF. etiology unclear. ?HIV related. Cardiology following. Recs: - continue IV vancomycin to cover empirically for MRSA pneumonia/tracheobronchitis D6 today, plan for total 7 days - continue PO Bactrim DS 1 tab daily for prophylaxis - Patient will follow up with his outside HIV provider to resume Genvoya upon discharge [facility] M: [phone] O:[phone] Subjective Date of service: 03/24/18 Principal diagnosis: itp Objective - Constitutional Vitals: Vital Signs Temp Pulse Resp BP Pulse Ox 98.6 F 88 18 119/78 100 03/24/18 09:16 03/24/18 09:13 03/24/18 09:13 03/24/18 09:13 03/24/18 09:21 Temperature -Last 24 Hours Temperature 98.6 F Temperature 98.0 F Temperature 98.2 F Temperature 98.4 F Temperature 98.2 F - Labs CBC & Chem 7: 03/24/18 07:34 03/24/18 07:34 Labs: Abnormal lab results 03/23/18 03/23/18 03/24/18 Range/Units 12:10 17:40 05:44 RBC (3.65-5.03) M/mm3 Hgb (11.8-15.2) gm/dl Hct (35.5-45.6) % Barton % (Auto) (0.0-7.3) % Barton # (0.0-0.8) K/mm3 Glucose (75-100) mg/dL POC Glucose 112 H 116 H 149 H (70-105) 03/24/18 03/24/18 Range/Units 07:34 07:34 RBC 3.53 L (3.65-5.03) M/mm3 Hgb 10.0 L (11.8-15.2) gm/dl Hct 30.7 L (35.5-45.6) % Barton % (Auto) 14.3 H (0.0-7.3) % Barton # 1.2 H (0.0-0.8) K/mm3 Glucose 105 H (75-100) mg/dL POC Glucose (70-105)
[2018-03-24] MEDS: BACTRIM DS PO SCH (10:57)
[2018-03-24] MEDS: FOLVITE PO SCH (10:57)
[2018-03-24] MEDS: PREVACID SOLUTAB FEEDTUBE SCH (13:13)
--- NOTE | 2018-03-24 13:45 | Progress Note ---
Assessment and Plan 33 y/o male with acute respiratory failure, secondary to volume overload from new diagnosis of systolic heart failure, now resolved with HIV, noncompliant with therapy and improving thrombocytopenia with MRSA 1. Pulm status is now stable. Off all supportive oxygen with good sats. At this time will sign off. Please remember that this patient has systolic heart failure and although young is likely very volume sensitive. He is not on scheduled lasix but this may need to be considered. Subjective Date of service: 03/24/18 Principal diagnosis: itp Interval history: Patient weaned to room air and stable. Family not at bedside. Patient states that breathing is well. Objective Vital Signs - 12hr 03/24/18 03/24/18 03/24/18 04:09 09:13 09:16 Temperature 98.0 F 98.6 F Pulse Rate 86 88 Respiratory 18 18 Rate Blood Pressure 125/72 119/78 O2 Sat by Pulse 98 98 Oximetry 03/24/18 09:21 Temperature Pulse Rate Respiratory Rate Blood Pressure O2 Sat by Pulse 100 Oximetry Constitutional: no acute distress, other (on vent [id number]%) Eyes: non-icteric ENT: oropharynx dry, other (orally intubated and sedated) Neck: supple Effort: mildly labored Ascultation: Bilateral: clear, diminished breath sounds, rales (OCCASIONAL), rhonchi Percussion: Bilateral: not dull Cardiovascular: regular rate and rhythm, other (sinus tach) Gastrointestinal: normoactive bowel sounds, non-tender Integumentary: normal Extremities: no cyanosis, no edema, pink and warm Neurologic: unable to assess, other (RA SS -1) CBC and BMP: 03/24/18 07:34 03/24/18 07:34 ABG, PT/INR, D-dimer: ABG POC ABG pH 7.447 (7.35-7.45) 03/22/18 05:28 POC ABG pCO2 41.9 (35-45) 03/22/18 05:28 POC ABG pO2 155 (80-105) H 03/22/18 05:28 POC ABG HCO3 28.9 03/22/18 05:28 POC ABG Total CO2 30 03/22/18 05:28 POC ABG O2 Sat 99 03/22/18 05:28 PT/INR, D-dimer PT 17.2 Sec. (12.2-14.9) H 03/10/18 18:15 INR 1.36 (0.87-1.13) H 03/10/18 18:15 Abnormal lab findings: Abnormal Labs 03/09/18 03/09/18 03/09/18 07:00 07:00 07:00 WBC RBC Hgb Hct RDW 15.5 H Plt Count 25 L Lymph % (Auto) [place] % (Auto) Lymph # [place] # Seg Neutrophils % Seg Neuts % (Manual) 90.0 H Lymphocytes % (Manual) 5.0 L Monocytes % (Manual) Seg Neutrophils # Seg Neutrophils # Man Abs Lymphs (Manual) Lymphocytes # (Manual) 0.4 L Monocytes # (Manual) PT 22.9 H INR 1.98 H APTT Fibrinogen POC ABG pH POC ABG pCO2 POC ABG pO2 VBG pH Sodium 135 L Potassium Chloride 90.8 L Carbon Dioxide 17 L BUN 45 H Creatinine 5.8 H Glucose 72 L POC Glucose Lactic Acid Calcium 7.6 L Phosphorus Magnesium Iron Ferritin Total Bilirubin Direct Bilirubin Alkaline Phosphatase 154 H Lactate Dehydrogenase Total Creatine Kinase NT-Pro-B Natriuret Pep Total Protein Albumin 3.6 L Triglycerides Vitamin B12 Folate Urine WBC (Auto) Urine Creatinine Urine Total Protein Complement C3 Lymph Enumerat CD4/CD8 Absolute CD3 Count % CD4 Cells Absolute CD4 Count % CD8 Cells HIV-1 RNA PCR copies/ml HIV-1 RNA (PCR) log 03/09/18 03/09/18 03/09/18 07:00 07:00 07:00 WBC RBC Hgb Hct RDW Plt Count Lymph % (Auto) [place] % (Auto) Lymph # [place] # Seg Neutrophils % Seg Neuts % (Manual) Lymphocytes % (Manual) Monocytes % (Manual) Seg Neutrophils # Seg Neutrophils # Man Abs Lymphs (Manual) Lymphocytes # (Manual) Monocytes # (Manual) PT INR APTT Fibrinogen POC ABG pH POC ABG pCO2 POC ABG pO2 VBG pH 7.297 L Sodium Potassium Chloride Carbon Dioxide BUN Creatinine Glucose POC Glucose Lactic Acid 6.80 H* Calcium Phosphorus 5.40 H Magnesium 1.20 L Iron Ferritin Total Bilirubin Direct Bilirubin Alkaline Phosphatase Lactate Dehydrogenase Total Creatine Kinase 228 H NT-Pro-B Natriuret Pep Total Protein Albumin Triglycerides Vitamin B12 Folate Urine WBC (Auto) Urine Creatinine Urine Total Protein Complement C3 Lymph Enumerat CD4/CD8 Absolute CD3 Count % CD4 Cells Absolute CD4 Count % CD8 Cells HIV-1 RNA PCR copies/ml HIV-1 RNA (PCR) log 03/09/18 03/09/18 03/09/18 09:22 12:36 14:39 WBC RBC Hgb Hct RDW Plt Count Lymph % (Auto) [place] % (Auto) Lymph # [place] # Seg Neutrophils % Seg Neuts % (Manual) Lymphocytes % (Manual) Monocytes % (Manual) Seg Neutrophils # Seg Neutrophils # Man Abs Lymphs (Manual) Lymphocytes # (Manual) Monocytes # (Manual) PT INR APTT Fibrinogen POC ABG pH POC ABG pCO2 POC ABG pO2 VBG pH Sodium Potassium Chloride Carbon Dioxide BUN Creatinine Glucose POC Glucose Lactic Acid 5.90 H* 8.30 H* Calcium Phosphorus Magnesium Iron Ferritin Total Bilirubin Direct Bilirubin Alkaline Phosphatase Lactate Dehydrogenase Total Creatine Kinase NT-Pro-B Natriuret Pep Total Protein Albumin Triglycerides Vitamin B12 Folate Urine WBC (Auto) 86.0 H Urine Creatinine Urine Total Protein Complement C3 Lymph Enumerat CD4/CD8 Absolute CD3 Count % CD4 Cells Absolute CD4 Count % CD8 Cells HIV-1 RNA PCR copies/ml HIV-1 RNA (PCR) log 03/09/18 03/09/18 03/09/18 14:39 14:39 15:12 WBC RBC Hgb Hct RDW Plt Count Lymph % (Auto) [place] % (Auto) Lymph # [place] # Seg Neutrophils % Seg Neuts % (Manual) Lymphocytes % (Manual) Monocytes % (Manual) Seg Neutrophils # Seg Neutrophils # Man Abs Lymphs (Manual) Lymphocytes # (Manual) Monocytes # (Manual) PT INR APTT Fibrinogen POC ABG pH POC ABG pCO2 POC ABG pO2 VBG pH Sodium Potassium Chloride Carbon Dioxide BUN Creatinine Glucose POC Glucose Lactic Acid 5.90 H* Calcium Phosphorus Magnesium Iron Ferritin Total Bilirubin Direct Bilirubin Alkaline Phosphatase Lactate Dehydrogenase Total Creatine Kinase NT-Pro-B Natriuret Pep Total Protein Albumin Triglycerides Vitamin B12 Folate Urine WBC (Auto) Urine Creatinine 217.1 H 210.7 H Urine Total Protein 820 H Complement C3 Lymph Enumerat CD4/CD8 Absolute CD3 Count % CD4 Cells Absolute CD4 Count % CD8 Cells HIV-1 RNA PCR copies/ml HIV-1 RNA (PCR) log 03/09/18 03/09/18 03/09/18 15:53 18:20 20:39 WBC RBC Hgb Hct RDW Plt Count Lymph % (Auto) [place] % (Auto) Lymph # [place] # Seg Neutrophils % Seg Neuts % (Manual) Lymphocytes % (Manual) Monocytes % (Manual) Seg Neutrophils # Seg Neutrophils # Man Abs Lymphs (Manual) Lymphocytes # (Manual) Monocytes # (Manual) PT INR APTT Fibrinogen POC ABG pH POC ABG pCO2 POC ABG pO2 VBG pH Sodium Potassium Chloride Carbon Dioxide BUN Creatinine Glucose POC Glucose 56 L Lactic Acid 5.10 H* 4.40 H* Calcium Phosphorus Magnesium Iron Ferritin Total Bilirubin Direct Bilirubin Alkaline Phosphatase Lactate Dehydrogenase Total Creatine Kinase NT-Pro-B Natriuret Pep Total Protein Albumin Triglycerides Vitamin B12 Folate Urine WBC (Auto) Urine Creatinine Urine Total Protein Complement C3 Lymph Enumerat CD4/CD8 Absolute CD3 Count % CD4 Cells Absolute CD4 Count % CD8 Cells HIV-1 RNA PCR copies/ml HIV-1 RNA (PCR) log 03/09/18 03/09/18 03/09/18 20:39 21:33 23:08 WBC RBC Hgb Hct RDW Plt Count Lymph % (Auto) [place] % (Auto) Lymph # [place] # Seg Neutrophils % Seg Neuts % (Manual) Lymphocytes % (Manual) Monocytes % (Manual) Seg Neutrophils # Seg Neutrophils # Man Abs Lymphs (Manual) Lymphocytes # (Manual) Monocytes # (Manual) PT INR APTT Fibrinogen POC ABG pH POC ABG pCO2 POC ABG pO2 VBG pH Sodium Potassium Chloride Carbon Dioxide BUN Creatinine Glucose POC Glucose Lactic Acid 4.90 H* 4.10 H* Calcium Phosphorus Magnesium Iron Ferritin Total Bilirubin Direct Bilirubin Alkaline Phosphatase Lactate Dehydrogenase Total Creatine Kinase NT-Pro-B Natriuret Pep Total Protein Albumin Triglycerides Vitamin B12 Folate Urine WBC (Auto) Urine Creatinine Urine Total Protein Complement C3 77 L Lymph Enumerat CD4/CD8 Absolute CD3 Count % CD4 Cells Absolute CD4 Count % CD8 Cells HIV-1 RNA PCR copies/ml HIV-1 RNA (PCR) log 03/10/18 03/10/18 03/10/18 01:00 04:40 04:40 WBC 11.8 H RBC Hgb 11.7 L Hct RDW Plt Count 8 L* Lymph % (Auto) [place] % (Auto) Lymph # [place] # Seg Neutrophils % Seg Neuts % (Manual) 93.0 H Lymphocytes % (Manual) 4.0 L Monocytes % (Manual) Seg Neutrophils # Seg Neutrophils # Man 11.0 H Abs Lymphs (Manual) Lymphocytes # (Manual) 0.5 L Monocytes # (Manual) PT INR APTT Fibrinogen POC ABG pH POC ABG pCO2 POC ABG pO2 VBG pH Sodium 136 L Potassium Chloride 96.6 L Carbon Dioxide 21 L BUN 62 H Creatinine 4.9 H Glucose POC Glucose Lactic Acid 4.10 H* Calcium 6.2 L D Phosphorus Magnesium Iron Ferritin Total Bilirubin Direct Bilirubin Alkaline Phosphatase Lactate Dehydrogenase Total Creatine Kinase NT-Pro-B Natriuret Pep Total Protein Albumin Triglycerides Vitamin B12 Folate Urine WBC (Auto) Urine Creatinine Urine Total Protein Complement C3 Lymph Enumerat CD4/CD8 Absolute CD3 Count % CD4 Cells Absolute CD4 Count % CD8 Cells HIV-1 RNA PCR copies/ml HIV-1 RNA (PCR) log 03/10/18 03/10/18 03/10/18 05:32 06:00 09:10 WBC RBC Hgb Hct RDW Plt Count Lymph % (Auto) [place] % (Auto) Lymph # [place] # Seg Neutrophils % Seg Neuts % (Manual) Lymphocytes % (Manual) Monocytes % (Manual) Seg Neutrophils # Seg Neutrophils # Man Abs Lymphs (Manual) Lymphocytes # (Manual) Monocytes # (Manual) PT INR APTT Fibrinogen POC ABG pH 7.254 L POC ABG pCO2 47.8 H POC ABG pO2 59 L VBG pH Sodium Potassium Chloride Carbon Dioxide BUN Creatinine Glucose POC Glucose 56 L Lactic Acid Calcium Phosphorus Magnesium Iron Ferritin Total Bilirubin Direct Bilirubin Alkaline Phosphatase Lactate Dehydrogenase Total Creatine Kinase NT-Pro-B Natriuret Pep Total Protein Albumin Triglycerides Vitamin B12 Folate Urine WBC (Auto) 32.0 H Urine Creatinine Urine Total Protein Complement C3 Lymph Enumerat CD4/CD8 Absolute CD3 Count % CD4 Cells Absolute CD4 Count % CD8 Cells HIV-1 RNA PCR copies/ml HIV-1 RNA (PCR) log 03/10/18 03/10/18 03/10/18 09:14 11:16 11:16 WBC RBC Hgb Hct RDW Plt Count Lymph % (Auto) [place] % (Auto) Lymph # [place] # Seg Neutrophils % Seg Neuts % (Manual) Lymphocytes % (Manual) Monocytes % (Manual) Seg Neutrophils # Seg Neutrophils # Man Abs Lymphs (Manual) Lymphocytes # (Manual) Monocytes # (Manual) PT INR APTT Fibrinogen POC ABG pH 7.266 L POC ABG pCO2 POC ABG pO2 VBG pH Sodium Potassium Chloride Carbon Dioxide BUN Creatinine Glucose POC Glucose Lactic Acid Calcium Phosphorus Magnesium Iron Ferritin Total Bilirubin Direct Bilirubin Alkaline Phosphatase Lactate Dehydrogenase 338 H Total Creatine Kinase 404 H NT-Pro-B Natriuret Pep 68322 H Total Protein Albumin Triglycerides Vitamin B12 Folate Urine WBC (Auto) Urine Creatinine Urine Total Protein Complement C3 Lymph Enumerat CD4/CD8 Absolute CD3 Count % CD4 Cells Absolute CD4 Count % CD8 Cells HIV-1 RNA PCR copies/ml HIV-1 RNA (PCR) log 03/10/18 03/10/18 03/10/18 11:51 18:15 18:15 WBC RBC Hgb Hct RDW Plt Count Lymph % (Auto) [place] % (Auto) Lymph # [place] # Seg Neutrophils % Seg Neuts % (Manual) Lymphocytes % (Manual) Monocytes % (Manual) Seg Neutrophils # Seg Neutrophils # Man Abs Lymphs (Manual) Lymphocytes # (Manual) Monocytes # (Manual) PT 17.2 H 17.0 H INR 1.36 H 1.34 H APTT 38.5 H Fibrinogen 852 H POC ABG pH POC ABG pCO2 POC ABG pO2 VBG pH Sodium Potassium Chloride Carbon Dioxide BUN Creatinine Glucose POC Glucose 109 H Lactic Acid Calcium Phosphorus Magnesium Iron Ferritin Total Bilirubin Direct Bilirubin Alkaline Phosphatase Lactate Dehydrogenase Total Creatine Kinase NT-Pro-B Natriuret Pep Total Protein Albumin Triglycerides Vitamin B12 Folate Urine WBC (Auto) Urine Creatinine Urine Total Protein Complement C3 Lymph Enumerat CD4/CD8 Absolute CD3 Count % CD4 Cells Absolute CD4 Count % CD8 Cells HIV-1 RNA PCR copies/ml HIV-1 RNA (PCR) log 03/10/18 03/10/18 03/10/18 18:15 18:15 19:45 WBC RBC Hgb Hct RDW Plt Count Lymph % (Auto) [place] % (Auto) Lymph # [place] # Seg Neutrophils % Seg Neuts % (Manual) Lymphocytes % (Manual) Monocytes % (Manual) Seg Neutrophils # Seg Neutrophils # Man Abs Lymphs (Manual) 779 L Lymphocytes # (Manual) Monocytes # (Manual) PT INR APTT Fibrinogen POC ABG pH POC ABG pCO2 POC ABG pO2 VBG pH Sodium Potassium Chloride Carbon Dioxide BUN Creatinine Glucose POC Glucose 136 H Lactic Acid Calcium Phosphorus Magnesium Iron Ferritin Total Bilirubin Direct Bilirubin Alkaline Phosphatase Lactate Dehydrogenase Total Creatine Kinase NT-Pro-B Natriuret Pep Total Protein Albumin Triglycerides Vitamin B12 Folate Urine WBC (Auto) Urine Creatinine Urine Total Protein Complement C3 Lymph Enumerat CD4/CD8 0.56 L Absolute CD3 Count 524 L % CD4 Cells 24 L Absolute CD4 Count 194 L % CD8 Cells 43 H HIV-1 RNA PCR copies/ml 78654 H HIV-1 RNA (PCR) log 4.71 H 03/10/18 03/10/18 03/10/18 20:40 22:07 23:06 WBC RBC Hgb Hct RDW Plt Count Lymph % (Auto) [place] % (Auto) Lymph # [place] # Seg Neutrophils % Seg Neuts % (Manual) Lymphocytes % (Manual) Monocytes % (Manual) Seg Neutrophils # Seg Neutrophils # Man Abs Lymphs (Manual) Lymphocytes # (Manual) Monocytes # (Manual) PT INR APTT Fibrinogen POC ABG pH POC ABG pCO2 POC ABG pO2 VBG pH Sodium Potassium Chloride Carbon Dioxide BUN Creatinine Glucose POC Glucose 135 H 135 H 133 H Lactic Acid Calcium Phosphorus Magnesium Iron Ferritin Total Bilirubin Direct Bilirubin Alkaline Phosphatase Lactate Dehydrogenase Total Creatine Kinase NT-Pro-B Natriuret Pep Total Protein Albumin Triglycerides Vitamin B12 Folate Urine WBC (Auto) Urine Creatinine Urine Total Protein Complement C3 Lymph Enumerat CD4/CD8 Absolute CD3 Count % CD4 Cells Absolute CD4 Count % CD8 Cells HIV-1 RNA PCR copies/ml HIV-1 RNA (PCR) log 03/11/18 03/11/18 03/11/18 00:07 02:01 03:10 WBC RBC Hgb Hct RDW Plt Count Lymph % (Auto) [place] % (Auto) Lymph # [place] # Seg Neutrophils % Seg Neuts % (Manual) Lymphocytes % (Manual) Monocytes % (Manual) Seg Neutrophils # Seg Neutrophils # Man Abs Lymphs (Manual) Lymphocytes # (Manual) Monocytes # (Manual) PT INR APTT Fibrinogen POC ABG pH POC ABG pCO2 POC ABG pO2 VBG pH Sodium Potassium Chloride Carbon Dioxide BUN Creatinine Glucose POC Glucose 148 H 161 H 189 H Lactic Acid Calcium Phosphorus Magnesium Iron Ferritin Total Bilirubin Direct Bilirubin Alkaline Phosphatase Lactate Dehydrogenase Total Creatine Kinase NT-Pro-B Natriuret Pep Total Protein Albumin Triglycerides Vitamin B12 Folate Urine WBC (Auto) Urine Creatinine Urine Total Protein Complement C3 Lymph Enumerat CD4/CD8 Absolute CD3 Count % CD4 Cells Absolute CD4 Count % CD8 Cells HIV-1 RNA PCR copies/ml HIV-1 RNA (PCR) log 03/11/18 03/11/18 03/11/18 04:12 04:50 04:50 WBC 12.8 H RBC Hgb 10.9 L Hct 32.5 L RDW 15.3 H Plt Count 17 L* D Lymph % (Auto) [place] % (Auto) Lymph # [place] # Seg Neutrophils % Seg Neuts % (Manual) 96.0 H Lymphocytes % (Manual) 2.0 L Monocytes % (Manual) Seg Neutrophils # Seg Neutrophils # Man 12.3 H Abs Lymphs (Manual) Lymphocytes # (Manual) 0.3 L Monocytes # (Manual) PT INR APTT Fibrinogen POC ABG pH POC ABG pCO2 POC ABG pO2 VBG pH Sodium Potassium Chloride 94.2 L Carbon Dioxide BUN 62 H Creatinine 2.7 H Glucose 191 H POC Glucose 188 H Lactic Acid Calcium 7.9 L D Phosphorus Magnesium Iron Ferritin Total Bilirubin Direct Bilirubin Alkaline Phosphatase Lactate Dehydrogenase Total Creatine Kinase NT-Pro-B Natriuret Pep Total Protein Albumin Triglycerides Vitamin B12 Folate Urine WBC (Auto) Urine Creatinine Urine Total Protein Complement C3 Lymph Enumerat CD4/CD8 Absolute CD3 Count % CD4 Cells Absolute CD4 Count % CD8 Cells HIV-1 RNA PCR copies/ml HIV-1 RNA (PCR) log 03/11/18 03/11/18 03/11/18 05:30 05:33 07:47 WBC RBC Hgb Hct RDW Plt Count Lymph % (Auto) [place] % (Auto) Lymph # [place] # Seg Neutrophils % Seg Neuts % (Manual) Lymphocytes % (Manual) Monocytes % (Manual) Seg Neutrophils # Seg Neutrophils # Man Abs Lymphs (Manual) Lymphocytes # (Manual) Monocytes # (Manual) PT INR APTT Fibrinogen POC ABG pH POC ABG pCO2 POC ABG pO2 58 L VBG pH Sodium Potassium Chloride Carbon Dioxide BUN Creatinine Glucose POC Glucose 187 H 151 H Lactic Acid Calcium Phosphorus Magnesium Iron Ferritin Total Bilirubin Direct Bilirubin Alkaline Phosphatase Lactate Dehydrogenase Total Creatine Kinase NT-Pro-B Natriuret Pep Total Protein Albumin Triglycerides Vitamin B12 Folate Urine WBC (Auto) Urine Creatinine Urine Total Protein Complement C3 Lymph Enumerat CD4/CD8 Absolute CD3 Count % CD4 Cells Absolute CD4 Count % CD8 Cells HIV-1 RNA PCR copies/ml HIV-1 RNA (PCR) log 03/11/18 03/11/18 03/11/18 12:11 13:18 14:26 WBC RBC Hgb Hct RDW Plt Count Lymph % (Auto) [place] % (Auto) Lymph # [place] # Seg Neutrophils % Seg Neuts % (Manual) Lymphocytes % (Manual) Monocytes % (Manual) Seg Neutrophils # Seg Neutrophils # Man Abs Lymphs (Manual) Lymphocytes # (Manual) Monocytes # (Manual) PT INR APTT Fibrinogen POC ABG pH POC ABG pCO2 POC ABG pO2 VBG pH Sodium Potassium Chloride Carbon Dioxide BUN Creatinine Glucose POC Glucose 166 H 157 H 145 H Lactic Acid Calcium Phosphorus Magnesium Iron Ferritin Total Bilirubin Direct Bilirubin Alkaline Phosphatase Lactate Dehydrogenase Total Creatine Kinase NT-Pro-B Natriuret Pep Total Protein Albumin Triglycerides Vitamin B12 Folate Urine WBC (Auto) Urine Creatinine Urine Total Protein Complement C3 Lymph Enumerat CD4/CD8 Absolute CD3 Count % CD4 Cells Absolute CD4 Count % CD8 Cells HIV-1 RNA PCR copies/ml HIV-1 RNA (PCR) log 03/11/18 03/11/18 03/11/18 14:48 15:15 16:17 WBC 21.2 H RBC Hgb 11.0 L Hct 33.8 L RDW Plt Count 15 L* Lymph % (Auto) [place] % (Auto) Lymph # [place] # Seg Neutrophils % Seg Neuts % (Manual) 92.0 H Lymphocytes % (Manual) 4.0 L Monocytes % (Manual) Seg Neutrophils # Seg Neutrophils # Man 19.5 H Abs Lymphs (Manual) Lymphocytes # (Manual) 0.8 L Monocytes # (Manual) PT INR APTT Fibrinogen POC ABG pH POC ABG pCO2 POC ABG pO2 VBG pH Sodium Potassium Chloride Carbon Dioxide BUN Creatinine Glucose POC Glucose 139 H 145 H Lactic Acid Calcium Phosphorus Magnesium Iron Ferritin Total Bilirubin Direct Bilirubin Alkaline Phosphatase Lactate Dehydrogenase Total Creatine Kinase NT-Pro-B Natriuret Pep Total Protein Albumin Triglycerides Vitamin B12 Folate Urine WBC (Auto) Urine Creatinine Urine Total Protein Complement C3 Lymph Enumerat CD4/CD8 Absolute CD3 Count % CD4 Cells Absolute CD4 Count % CD8 Cells HIV-1 RNA PCR copies/ml HIV-1 RNA (PCR) log 03/11/18 03/11/18 03/11/18 17:48 20:16 21:02 WBC RBC Hgb Hct RDW Plt Count Lymph % (Auto) [place] % (Auto) Lymph # [place] # Seg Neutrophils % Seg Neuts % (Manual) Lymphocytes % (Manual) Monocytes % (Manual) Seg Neutrophils # Seg Neutrophils # Man Abs Lymphs (Manual) Lymphocytes # (Manual) Monocytes # (Manual) PT INR APTT Fibrinogen POC ABG pH POC ABG pCO2 POC ABG pO2 VBG pH Sodium Potassium Chloride Carbon Dioxide BUN Creatinine Glucose POC Glucose 142 H 158 H 146 H Lactic Acid Calcium Phosphorus Magnesium Iron Ferritin Total Bilirubin Direct Bilirubin Alkaline Phosphatase Lactate Dehydrogenase Total Creatine Kinase NT-Pro-B Natriuret Pep Total Protein Albumin Triglycerides Vitamin B12 Folate Urine WBC (Auto) Urine Creatinine Urine Total Protein Complement C3 Lymph Enumerat CD4/CD8 Absolute CD3 Count % CD4 Cells Absolute CD4 Count % CD8 Cells HIV-1 RNA PCR copies/ml HIV-1 RNA (PCR) log 03/11/18 03/12/18 03/12/18 23:14 00:54 06:19 WBC 29.6 H RBC Hgb 10.6 L Hct 31.3 L RDW Plt Count 51 L D Lymph % (Auto) [place] % (Auto) Lymph # [place] # Seg Neutrophils % Seg Neuts % (Manual) Lymphocytes % (Manual) Monocytes % (Manual) Seg Neutrophils # Seg Neutrophils # Man Abs Lymphs (Manual) Lymphocytes # (Manual) Monocytes # (Manual) PT INR APTT Fibrinogen POC ABG pH POC ABG pCO2 POC ABG pO2 VBG pH Sodium Potassium Chloride Carbon Dioxide BUN Creatinine Glucose POC Glucose 168 H 185 H Lactic Acid Calcium Phosphorus Magnesium Iron Ferritin Total Bilirubin Direct Bilirubin Alkaline Phosphatase Lactate Dehydrogenase Total Creatine Kinase NT-Pro-B Natriuret Pep Total Protein Albumin Triglycerides Vitamin B12 Folate Urine WBC (Auto) Urine Creatinine Urine Total Protein Complement C3 Lymph Enumerat CD4/CD8 Absolute CD3 Count % CD4 Cells Absolute CD4 Count % CD8 Cells HIV-1 RNA PCR copies/ml HIV-1 RNA (PCR) log 03/12/18 03/12/18 03/12/18 06:29 06:29 06:29 WBC 32.7 H RBC Hgb 10.5 L Hct 31.7 L RDW 15.3 H Plt Count 34 L Lymph % (Auto) [place] % (Auto) Lymph # [place] # Seg Neutrophils % Seg Neuts % (Manual) 81.5 H Lymphocytes % (Manual) 7.0 L Monocytes % (Manual) 7.5 H Seg Neutrophils # Seg Neutrophils # Man 26.7 H Abs Lymphs (Manual) Lymphocytes # (Manual) Monocytes # (Manual) 2.5 H PT INR APTT Fibrinogen POC ABG pH POC ABG pCO2 POC ABG pO2 VBG pH Sodium Potassium 3.4 L Chloride Carbon Dioxide BUN 69 H Creatinine 2.2 H Glucose 181 H POC Glucose Lactic Acid Calcium Phosphorus Magnesium Iron Ferritin Total Bilirubin 2.30 H Direct Bilirubin 1.5 H Alkaline Phosphatase Lactate Dehydrogenase Total Creatine Kinase NT-Pro-B Natriuret Pep Total Protein 6.2 L Albumin 3.1 L Triglycerides Vitamin B12 Folate Urine WBC (Auto) Urine Creatinine Urine Total Protein Complement C3 Lymph Enumerat CD4/CD8 Absolute CD3 Count % CD4 Cells Absolute CD4 Count % CD8 Cells HIV-1 RNA PCR copies/ml HIV-1 RNA (PCR) log 03/12/18 03/12/18 03/12/18 07:21 07:44 10:16 WBC RBC Hgb Hct RDW Plt Count Lymph % (Auto) [place] % (Auto) Lymph # [place] # Seg Neutrophils % Seg Neuts % (Manual) Lymphocytes % (Manual) Monocytes % (Manual) Seg Neutrophils # Seg Neutrophils # Man Abs Lymphs (Manual) Lymphocytes # (Manual) Monocytes # (Manual) PT INR APTT Fibrinogen POC ABG pH 7.337 L POC ABG pCO2 54.9 H POC ABG pO2 59 L VBG pH Sodium Potassium Chloride Carbon Dioxide BUN Creatinine Glucose POC Glucose 157 H 153 H Lactic Acid Calcium Phosphorus Magnesium Iron Ferritin Total Bilirubin Direct Bilirubin Alkaline Phosphatase Lactate Dehydrogenase Total Creatine Kinase NT-Pro-B Natriuret Pep Total Protein Albumin Triglycerides Vitamin B12 Folate Urine WBC (Auto) Urine Creatinine Urine Total Protein Complement C3 Lymph Enumerat CD4/CD8 Absolute CD3 Count % CD4 Cells Absolute CD4 Count % CD8 Cells HIV-1 RNA PCR copies/ml HIV-1 RNA (PCR) log 03/12/18 03/12/18 03/12/18 12:53 15:22 18:17 WBC RBC Hgb Hct RDW Plt Count Lymph % (Auto) [place] % (Auto) Lymph # [place] # Seg Neutrophils % Seg Neuts % (Manual) Lymphocytes % (Manual) Monocytes % (Manual) Seg Neutrophils # Seg Neutrophils # Man Abs Lymphs (Manual) Lymphocytes # (Manual) Monocytes # (Manual) PT INR APTT Fibrinogen POC ABG pH POC ABG pCO2 61.7 H POC ABG pO2 110 H VBG pH Sodium Potassium Chloride Carbon Dioxide BUN Creatinine Glucose POC Glucose 148 H 148 H Lactic Acid Calcium Phosphorus Magnesium Iron Ferritin Total Bilirubin Direct Bilirubin Alkaline Phosphatase Lactate Dehydrogenase Total Creatine Kinase NT-Pro-B Natriuret Pep Total Protein Albumin Triglycerides Vitamin B12 Folate Urine WBC (Auto) Urine Creatinine Urine Total Protein Complement C3 Lymph Enumerat CD4/CD8 Absolute CD3 Count % CD4 Cells Absolute CD4 Count % CD8 Cells HIV-1 RNA PCR copies/ml HIV-1 RNA (PCR) log 03/12/18 03/13/18 03/13/18 21:34 01:14 04:37 WBC RBC Hgb Hct RDW Plt Count Lymph % (Auto) [place] % (Auto) Lymph # [place] # Seg Neutrophils % Seg Neuts % (Manual) Lymphocytes % (Manual) Monocytes % (Manual) Seg Neutrophils # Seg Neutrophils # Man Abs Lymphs (Manual) Lymphocytes # (Manual) Monocytes # (Manual) PT INR APTT Fibrinogen POC ABG pH POC ABG pCO2 60.2 H POC ABG pO2 115 H VBG pH Sodium Potassium Chloride Carbon Dioxide BUN Creatinine Glucose POC Glucose 161 H 187 H Lactic Acid Calcium Phosphorus Magnesium Iron Ferritin Total Bilirubin Direct Bilirubin Alkaline Phosphatase Lactate Dehydrogenase Total Creatine Kinase NT-Pro-B Natriuret Pep Total Protein Albumin Triglycerides Vitamin B12 Folate Urine WBC (Auto) Urine Creatinine Urine Total Protein Complement C3 Lymph Enumerat CD4/CD8 Absolute CD3 Count % CD4 Cells Absolute CD4 Count % CD8 Cells HIV-1 RNA PCR copies/ml HIV-1 RNA (PCR) log 03/13/18 03/13/18 03/13/18 05:22 05:22 08:24 WBC 30.4 H RBC 3.45 L Hgb 9.8 L Hct 29.7 L RDW Plt Count 37 L Lymph % (Auto) [place] % (Auto) Lymph # [place] # Seg Neutrophils % Seg Neuts % (Manual) 75.5 H Lymphocytes % (Manual) 3.0 L Monocytes % (Manual) Seg Neutrophils # Seg Neutrophils # Man 23.0 H Abs Lymphs (Manual) Lymphocytes # (Manual) 0.9 L Monocytes # (Manual) PT INR APTT Fibrinogen POC ABG pH POC ABG pCO2 POC ABG pO2 VBG pH Sodium 146 H Potassium Chloride Carbon Dioxide 35 H D BUN 71 H Creatinine 1.7 H Glucose 187 H POC Glucose 210 H Lactic Acid Calcium Phosphorus Magnesium Iron Ferritin Total Bilirubin Direct Bilirubin Alkaline Phosphatase Lactate Dehydrogenase Total Creatine Kinase NT-Pro-B Natriuret Pep Total Protein Albumin Triglycerides Vitamin B12 Folate Urine WBC (Auto) Urine Creatinine Urine Total Protein Complement C3 Lymph Enumerat CD4/CD8 Absolute CD3 Count % CD4 Cells Absolute CD4 Count % CD8 Cells HIV-1 RNA PCR copies/ml HIV-1 RNA (PCR) log 03/13/18 03/13/18 03/13/18 12:22 12:44 17:27 WBC RBC Hgb Hct RDW Plt Count Lymph % (Auto) [place] % (Auto) Lymph # [place] # Seg Neutrophils % Seg Neuts % (Manual) Lymphocytes % (Manual) Monocytes % (Manual) Seg Neutrophils # Seg Neutrophils # Man Abs Lymphs (Manual) Lymphocytes # (Manual) Monocytes # (Manual) PT INR APTT Fibrinogen POC ABG pH POC ABG pCO2 POC ABG pO2 VBG pH Sodium Potassium Chloride Carbon Dioxide BUN Creatinine Glucose POC Glucose 208 H 169 H Lactic Acid Calcium Phosphorus Magnesium 3.00 H Iron Ferritin Total Bilirubin Direct Bilirubin Alkaline Phosphatase Lactate Dehydrogenase Total Creatine Kinase NT-Pro-B Natriuret Pep Total Protein Albumin Triglycerides Vitamin B12 Folate Urine WBC (Auto) Urine Creatinine Urine Total Protein Complement C3 Lymph Enumerat CD4/CD8 Absolute CD3 Count % CD4 Cells Absolute CD4 Count % CD8 Cells HIV-1 RNA PCR copies/ml HIV-1 RNA (PCR) log 03/13/18 03/14/18 03/14/18 23:35 04:29 05:23 WBC RBC Hgb Hct RDW Plt Count Lymph % (Auto) [place] % (Auto) Lymph # [place] # Seg Neutrophils % Seg Neuts % (Manual) Lymphocytes % (Manual) Monocytes % (Manual) Seg Neutrophils # Seg Neutrophils # Man Abs Lymphs (Manual) Lymphocytes # (Manual) Monocytes # (Manual) PT INR APTT Fibrinogen POC ABG pH 7.502 H POC ABG pCO2 53.2 H POC ABG pO2 VBG pH Sodium Potassium Chloride Carbon Dioxide BUN Creatinine Glucose POC Glucose 256 H 212 H Lactic Acid Calcium Phosphorus Magnesium Iron Ferritin Total Bilirubin Direct Bilirubin Alkaline Phosphatase Lactate Dehydrogenase Total Creatine Kinase NT-Pro-B Natriuret Pep Total Protein Albumin Triglycerides Vitamin B12 Folate Urine WBC (Auto) Urine Creatinine Urine Total Protein Complement C3 Lymph Enumerat CD4/CD8 Absolute CD3 Count % CD4 Cells Absolute CD4 Count % CD8 Cells HIV-1 RNA PCR copies/ml HIV-1 RNA (PCR) log 03/14/18 03/14/18 03/14/18 06:00 06:00 06:00 WBC 27.3 H RBC 3.52 L Hgb 10.0 L Hct 30.8 L RDW Plt Count 50 L Lymph % (Auto) [place] % (Auto) Lymph # [place] # Seg Neutrophils % Seg Neuts % (Manual) 87.0 H Lymphocytes % (Manual) 3.0 L Monocytes % (Manual) Seg Neutrophils # Seg Neutrophils # Man 23.8 H Abs Lymphs (Manual) Lymphocytes # (Manual) 0.8 L Monocytes # (Manual) 1.6 H PT INR APTT Fibrinogen POC ABG pH POC ABG pCO2 POC ABG pO2 VBG pH Sodium 156 H D Potassium Chloride 109.5 H Carbon Dioxide 37 H BUN 70 H Creatinine Glucose 202 H POC Glucose Lactic Acid Calcium Phosphorus Magnesium Iron Ferritin Total Bilirubin Direct Bilirubin Alkaline Phosphatase Lactate Dehydrogenase Total Creatine Kinase 17 L NT-Pro-B Natriuret Pep Total Protein Albumin Triglycerides Vitamin B12 Folate Urine WBC (Auto) Urine Creatinine Urine Total Protein Complement C3 Lymph Enumerat CD4/CD8 Absolute CD3 Count % CD4 Cells Absolute CD4 Count % CD8 Cells HIV-1 RNA PCR copies/ml HIV-1 RNA (PCR) log 03/14/18 03/14/18 03/14/18 07:00 07:00 07:00 WBC RBC Hgb Hct RDW Plt Count Lymph % (Auto) [place] % (Auto) Lymph # [place] # Seg Neutrophils % Seg Neuts % (Manual) Lymphocytes % (Manual) Monocytes % (Manual) Seg Neutrophils # Seg Neutrophils # Man Abs Lymphs (Manual) Lymphocytes # (Manual) Monocytes # (Manual) PT INR APTT Fibrinogen POC ABG pH POC ABG pCO2 POC ABG pO2 VBG pH Sodium Potassium Chloride Carbon Dioxide BUN Creatinine Glucose POC Glucose Lactic Acid Calcium Phosphorus Magnesium Iron 42 L Ferritin 532.4 H Total Bilirubin Direct Bilirubin Alkaline Phosphatase Lactate Dehydrogenase Total Creatine Kinase NT-Pro-B Natriuret Pep Total Protein Albumin Triglycerides Vitamin B12 1825 H Folate Urine WBC (Auto) Urine Creatinine Urine Total Protein Complement C3 Lymph Enumerat CD4/CD8 Absolute CD3 Count % CD4 Cells Absolute CD4 Count % CD8 Cells HIV-1 RNA PCR copies/ml HIV-1 RNA (PCR) log 03/14/18 03/14/18 03/14/18 07:00 07:00 13:01 WBC RBC Hgb Hct RDW Plt Count Lymph % (Auto) [place] % (Auto) Lymph # [place] # Seg Neutrophils % Seg Neuts % (Manual) Lymphocytes % (Manual) Monocytes % (Manual) Seg Neutrophils # Seg Neutrophils # Man Abs Lymphs (Manual) Lymphocytes # (Manual) Monocytes # (Manual) PT INR APTT Fibrinogen POC ABG pH POC ABG pCO2 POC ABG pO2 VBG pH Sodium Potassium Chloride Carbon Dioxide BUN Creatinine Glucose POC Glucose 201 H Lactic Acid Calcium Phosphorus Magnesium Iron Ferritin Total Bilirubin Direct Bilirubin Alkaline Phosphatase Lactate Dehydrogenase Total Creatine Kinase NT-Pro-B Natriuret Pep Total Protein Albumin Triglycerides 532 H Vitamin B12 Folate 6.29 L Urine WBC (Auto) Urine Creatinine Urine Total Protein Complement C3 Lymph Enumerat CD4/CD8 Absolute CD3 Count % CD4 Cells Absolute CD4 Count % CD8 Cells HIV-1 RNA PCR copies/ml HIV-1 RNA (PCR) log 03/14/18 03/14/18 03/14/18 17:37 21:04 23:30 WBC RBC Hgb Hct RDW Plt Count Lymph % (Auto) [place] % (Auto) Lymph # [place] # Seg Neutrophils % Seg Neuts % (Manual) Lymphocytes % (Manual) Monocytes % (Manual) Seg Neutrophils # Seg Neutrophils # Man Abs Lymphs (Manual) Lymphocytes # (Manual) Monocytes # (Manual) PT INR APTT Fibrinogen POC ABG pH POC ABG pCO2 POC ABG pO2 VBG pH Sodium 155 H Potassium Chloride 114.1 H Carbon Dioxide 33 H BUN 58 H Creatinine Glucose 166 H POC Glucose 179 H 167 H Lactic Acid Calcium Phosphorus Magnesium Iron Ferritin Total Bilirubin Direct Bilirubin Alkaline Phosphatase Lactate Dehydrogenase Total Creatine Kinase NT-Pro-B Natriuret Pep Total Protein Albumin Triglycerides Vitamin B12 Folate Urine WBC (Auto) Urine Creatinine Urine Total Protein Complement C3 Lymph Enumerat CD4/CD8 Absolute CD3 Count % CD4 Cells Absolute CD4 Count % CD8 Cells HIV-1 RNA PCR copies/ml HIV-1 RNA (PCR) log 03/15/18 03/15/18 03/15/18 04:44 04:44 04:44 WBC 26.0 H RBC Hgb 10.5 L Hct 33.0 L RDW Plt Count 70 L Lymph % (Auto) [place] % (Auto) Lymph # [place] # Seg Neutrophils % Seg Neuts % (Manual) 91.0 H Lymphocytes % (Manual) 6.0 L Monocytes % (Manual) Seg Neutrophils # Seg Neutrophils # Man 23.7 H Abs Lymphs (Manual) Lymphocytes # (Manual) Monocytes # (Manual) PT INR APTT Fibrinogen POC ABG pH POC ABG pCO2 POC ABG pO2 VBG pH Sodium 155 H Potassium Chloride 114.3 H Carbon Dioxide 31 H BUN 51 H Creatinine Glucose 173 H POC Glucose Lactic Acid Calcium Phosphorus Magnesium 2.80 H Iron Ferritin Total Bilirubin Direct Bilirubin Alkaline Phosphatase Lactate Dehydrogenase Total Creatine Kinase NT-Pro-B Natriuret Pep Total Protein Albumin Triglycerides Vitamin B12 Folate Urine WBC (Auto) Urine Creatinine Urine Total Protein Complement C3 Lymph Enumerat CD4/CD8 Absolute CD3 Count % CD4 Cells Absolute CD4 Count % CD8 Cells HIV-1 RNA PCR copies/ml HIV-1 RNA (PCR) log 03/15/18 03/15/18 03/15/18 04:53 06:36 17:25 WBC RBC Hgb Hct RDW Plt Count Lymph % (Auto) [place] % (Auto) Lymph # [place] # Seg Neutrophils % Seg Neuts % (Manual) Lymphocytes % (Manual) Monocytes % (Manual) Seg Neutrophils # Seg Neutrophils # Man Abs Lymphs (Manual) Lymphocytes # (Manual) Monocytes # (Manual) PT INR APTT Fibrinogen POC ABG pH POC ABG pCO2 59.0 H POC ABG pO2 112 H VBG pH Sodium Potassium Chloride Carbon Dioxide BUN Creatinine Glucose POC Glucose 199 H 138 H Lactic Acid Calcium Phosphorus Magnesium Iron Ferritin Total Bilirubin Direct Bilirubin Alkaline Phosphatase Lactate Dehydrogenase Total Creatine Kinase NT-Pro-B Natriuret Pep Total Protein Albumin Triglycerides Vitamin B12 Folate Urine WBC (Auto) Urine Creatinine Urine Total Protein Complement C3 Lymph Enumerat CD4/CD8 Absolute CD3 Count % CD4 Cells Absolute CD4 Count % CD8 Cells HIV-1 RNA PCR copies/ml HIV-1 RNA (PCR) log 03/15/18 03/16/18 03/16/18 23:20 03:59 05:01 WBC 21.9 H RBC Hgb 10.3 L Hct 32.5 L RDW Plt Count 88 L Lymph % (Auto) [place] % (Auto) Lymph # [place] # Seg Neutrophils % Seg Neuts % (Manual) 98.0 H Lymphocytes % (Manual) 2.0 L Monocytes % (Manual) Seg Neutrophils # Seg Neutrophils # Man 21.5 H Abs Lymphs (Manual) Lymphocytes # (Manual) 0.4 L Monocytes # (Manual) PT INR APTT Fibrinogen POC ABG pH POC ABG pCO2 46.6 H POC ABG pO2 50 L VBG pH Sodium Potassium Chloride Carbon Dioxide BUN Creatinine Glucose POC Glucose 182 H Lactic Acid Calcium Phosphorus Magnesium Iron Ferritin Total Bilirubin Direct Bilirubin Alkaline Phosphatase Lactate Dehydrogenase Total Creatine Kinase NT-Pro-B Natriuret Pep Total Protein Albumin Triglycerides Vitamin B12 Folate Urine WBC (Auto) Urine Creatinine Urine Total Protein Complement C3 Lymph Enumerat CD4/CD8 Absolute CD3 Count % CD4 Cells Absolute CD4 Count % CD8 Cells HIV-1 RNA PCR copies/ml HIV-1 RNA (PCR) log 03/16/18 03/16/18 03/16/18 05:01 05:01 05:29 WBC RBC Hgb Hct RDW Plt Count Lymph % (Auto) [place] % (Auto) Lymph # [place] # Seg Neutrophils % Seg Neuts % (Manual) Lymphocytes % (Manual) Monocytes % (Manual) Seg Neutrophils # Seg Neutrophils # Man Abs Lymphs (Manual) Lymphocytes # (Manual) Monocytes # (Manual) PT INR APTT Fibrinogen POC ABG pH POC ABG pCO2 POC ABG pO2 VBG pH Sodium 148 H Potassium 5.7 H Chloride 112.1 H Carbon Dioxide BUN 41 H Creatinine Glucose 234 H POC Glucose 257 H Lactic Acid Calcium Phosphorus Magnesium Iron Ferritin Total Bilirubin Direct Bilirubin Alkaline Phosphatase Lactate Dehydrogenase Total Creatine Kinase NT-Pro-B Natriuret Pep Total Protein Albumin Triglycerides 212 H Vitamin B12 Folate Urine WBC (Auto) Urine Creatinine Urine Total Protein Complement C3 Lymph Enumerat CD4/CD8 Absolute CD3 Count % CD4 Cells Absolute CD4 Count % CD8 Cells HIV-1 RNA PCR copies/ml HIV-1 RNA (PCR) log 03/16/18 03/16/18 03/16/18 11:30 15:56 17:28 WBC RBC Hgb Hct RDW Plt Count Lymph % (Auto) [place] % (Auto) Lymph # [place] # Seg Neutrophils % Seg Neuts % (Manual) Lymphocytes % (Manual) Monocytes % (Manual) Seg Neutrophils # Seg Neutrophils # Man Abs Lymphs (Manual) Lymphocytes # (Manual) Monocytes # (Manual) PT INR APTT Fibrinogen POC ABG pH POC ABG pCO2 POC ABG pO2 VBG pH Sodium Potassium 5.5 H Chloride Carbon Dioxide BUN 39 H Creatinine Glucose 186 H POC Glucose 186 H 153 H Lactic Acid Calcium Phosphorus Magnesium Iron Ferritin Total Bilirubin Direct Bilirubin Alkaline Phosphatase Lactate Dehydrogenase Total Creatine Kinase NT-Pro-B Natriuret Pep Total Protein Albumin Triglycerides Vitamin B12 Folate Urine WBC (Auto) Urine Creatinine Urine Total Protein Complement C3 Lymph Enumerat CD4/CD8 Absolute CD3 Count % CD4 Cells Absolute CD4 Count % CD8 Cells HIV-1 RNA PCR copies/ml HIV-1 RNA (PCR) log 03/16/18 03/17/18 03/17/18 23:48 04:25 04:25 WBC 13.9 H RBC 2.89 L Hgb 8.2 L Hct 27.8 L RDW Plt Count 85 L Lymph % (Auto) [place] % (Auto) Lymph # [place] # Seg Neutrophils % Seg Neuts % (Manual) 88.0 H Lymphocytes % (Manual) 4.0 L Monocytes % (Manual) Seg Neutrophils # Seg Neutrophils # Man 12.2 H Abs Lymphs (Manual) Lymphocytes # (Manual) 0.6 L Monocytes # (Manual) PT INR APTT Fibrinogen POC ABG pH POC ABG pCO2 POC ABG pO2 VBG pH Sodium Potassium 5.7 H Chloride 107.5 H Carbon Dioxide BUN 38 H Creatinine Glucose 165 H POC Glucose 131 H Lactic Acid Calcium Phosphorus Magnesium Iron Ferritin Total Bilirubin Direct Bilirubin Alkaline Phosphatase Lactate Dehydrogenase Total Creatine Kinase NT-Pro-B Natriuret Pep Total Protein Albumin Triglycerides Vitamin B12 Folate Urine WBC (Auto) Urine Creatinine Urine Total Protein Complement C3 Lymph Enumerat CD4/CD8 Absolute CD3 Count % CD4 Cells Absolute CD4 Count % CD8 Cells HIV-1 RNA PCR copies/ml HIV-1 RNA (PCR) log 03/17/18 03/17/18 03/17/18 04:25 04:51 05:39 WBC RBC Hgb Hct RDW Plt Count Lymph % (Auto) [place] % (Auto) Lymph # [place] # Seg Neutrophils % Seg Neuts % (Manual) Lymphocytes % (Manual) Monocytes % (Manual) Seg Neutrophils # Seg Neutrophils # Man Abs Lymphs (Manual) Lymphocytes # (Manual) Monocytes # (Manual) PT INR APTT Fibrinogen POC ABG pH POC ABG pCO2 45.4 H POC ABG pO2 174 H VBG pH Sodium Potassium Chloride Carbon Dioxide BUN Creatinine Glucose POC Glucose 140 H Lactic Acid Calcium Phosphorus Magnesium Iron Ferritin Total Bilirubin Direct Bilirubin Alkaline Phosphatase Lactate Dehydrogenase 232 H Total Creatine Kinase 33 L NT-Pro-B Natriuret Pep Total Protein Albumin Triglycerides Vitamin B12 Folate Urine WBC (Auto) Urine Creatinine Urine Total Protein Complement C3 Lymph Enumerat CD4/CD8 Absolute CD3 Count % CD4 Cells Absolute CD4 Count % CD8 Cells HIV-1 RNA PCR copies/ml HIV-1 RNA (PCR) log 03/17/18 03/17/18 03/17/18 11:51 14:40 17:40 WBC RBC Hgb Hct RDW Plt Count Lymph % (Auto) [place] % (Auto) Lymph # [place] # Seg Neutrophils % Seg Neuts % (Manual) Lymphocytes % (Manual) Monocytes % (Manual) Seg Neutrophils # Seg Neutrophils # Man Abs Lymphs (Manual) Lymphocytes # (Manual) Monocytes # (Manual) PT INR APTT Fibrinogen POC ABG pH POC ABG pCO2 POC ABG pO2 VBG pH Sodium Potassium Chloride Carbon Dioxide BUN 36 H Creatinine Glucose 107 H POC Glucose 122 H 113 H Lactic Acid Calcium Phosphorus Magnesium Iron Ferritin Total Bilirubin Direct Bilirubin Alkaline Phosphatase Lactate Dehydrogenase Total Creatine Kinase NT-Pro-B Natriuret Pep Total Protein Albumin Triglycerides Vitamin B12 Folate Urine WBC (Auto) Urine Creatinine Urine Total Protein Complement C3 Lymph Enumerat CD4/CD8 Absolute CD3 Count % CD4 Cells Absolute CD4 Count % CD8 Cells HIV-1 RNA PCR copies/ml HIV-1 RNA (PCR) log 03/18/18 03/18/18 03/18/18 04:16 04:16 04:48 WBC 14.9 H RBC Hgb 10.8 L Hct 33.3 L RDW Plt Count Lymph % (Auto) [place] % (Auto) Lymph # [place] # Seg Neutrophils % Seg Neuts % (Manual) 76.0 H Lymphocytes % (Manual) 5.0 L Monocytes % (Manual) Seg Neutrophils # Seg Neutrophils # Man 11.3 H Abs Lymphs (Manual) Lymphocytes # (Manual) 0.7 L Monocytes # (Manual) PT INR APTT Fibrinogen POC ABG pH POC ABG pCO2 POC ABG pO2 54 L VBG pH Sodium Potassium Chloride Carbon Dioxide BUN 34 H Creatinine Glucose 116 H POC Glucose Lactic Acid Calcium Phosphorus Magnesium Iron Ferritin Total Bilirubin Direct Bilirubin Alkaline Phosphatase Lactate Dehydrogenase Total Creatine Kinase NT-Pro-B Natriuret Pep Total Protein Albumin Triglycerides Vitamin B12 Folate Urine WBC (Auto) Urine Creatinine Urine Total Protein Complement C3 Lymph Enumerat CD4/CD8 Absolute CD3 Count % CD4 Cells Absolute CD4 Count % CD8 Cells HIV-1 RNA PCR copies/ml HIV-1 RNA (PCR) log 03/18/18 03/18/18 03/19/18 05:13 18:40 04:50 WBC RBC Hgb Hct RDW Plt Count Lymph % (Auto) [place] % (Auto) Lymph # [place] # Seg Neutrophils % Seg Neuts % (Manual) Lymphocytes % (Manual) Monocytes % (Manual) Seg Neutrophils # Seg Neutrophils # Man Abs Lymphs (Manual) Lymphocytes # (Manual) Monocytes # (Manual) PT INR APTT Fibrinogen POC ABG pH POC ABG pCO2 46.1 H POC ABG pO2 112 H VBG pH Sodium Potassium Chloride Carbon Dioxide BUN Creatinine Glucose POC Glucose 127 H 110 H Lactic Acid Calcium Phosphorus Magnesium Iron Ferritin Total Bilirubin Direct Bilirubin Alkaline Phosphatase Lactate Dehydrogenase Total Creatine Kinase NT-Pro-B Natriuret Pep Total Protein Albumin Triglycerides Vitamin B12 Folate Urine WBC (Auto) Urine Creatinine Urine Total Protein Complement C3 Lymph Enumerat CD4/CD8 Absolute CD3 Count % CD4 Cells Absolute CD4 Count % CD8 Cells HIV-1 RNA PCR copies/ml HIV-1 RNA (PCR) log 03/19/18 03/19/18 03/19/18 05:27 06:00 06:00 WBC 13.0 H RBC 3.43 L Hgb 9.7 L Hct 30.6 L RDW Plt Count Lymph % (Auto) 8.4 L [place] % (Auto) Lymph # 1.1 L [place] # Seg Neutrophils % 87.4 H Seg Neuts % (Manual) Lymphocytes % (Manual) Monocytes % (Manual) Seg Neutrophils # 11.4 H Seg Neutrophils # Man Abs Lymphs (Manual) Lymphocytes # (Manual) Monocytes # (Manual) PT INR APTT Fibrinogen POC ABG pH POC ABG pCO2 POC ABG pO2 VBG pH Sodium Potassium Chloride 107.8 H Carbon Dioxide BUN 28 H Creatinine Glucose 220 H POC Glucose 69 L Lactic Acid Calcium 8.1 L Phosphorus Magnesium Iron Ferritin Total Bilirubin Direct Bilirubin Alkaline Phosphatase Lactate Dehydrogenase Total Creatine Kinase NT-Pro-B Natriuret Pep Total Protein Albumin Triglycerides Vitamin B12 Folate Urine WBC (Auto) Urine Creatinine Urine Total Protein Complement C3 Lymph Enumerat CD4/CD8 Absolute CD3 Count % CD4 Cells Absolute CD4 Count % CD8 Cells HIV-1 RNA PCR copies/ml HIV-1 RNA (PCR) log 03/19/18 03/19/18 03/20/18 06:00 17:10 00:01 WBC RBC Hgb Hct RDW Plt Count Lymph % (Auto) [place] % (Auto) Lymph # [place] # Seg Neutrophils % Seg Neuts % (Manual) Lymphocytes % (Manual) Monocytes % (Manual) Seg Neutrophils # Seg Neutrophils # Man Abs Lymphs (Manual) Lymphocytes # (Manual) Monocytes # (Manual) PT INR APTT Fibrinogen POC ABG pH POC ABG pCO2 POC ABG pO2 VBG pH Sodium Potassium Chloride Carbon Dioxide BUN Creatinine Glucose POC Glucose 132 H 181 H Lactic Acid Calcium Phosphorus Magnesium Iron Ferritin Total Bilirubin Direct Bilirubin Alkaline Phosphatase Lactate Dehydrogenase Total Creatine Kinase NT-Pro-B Natriuret Pep Total Protein Albumin Triglycerides 177 H Vitamin B12 Folate Urine WBC (Auto) Urine Creatinine Urine Total Protein Complement C3 Lymph Enumerat CD4/CD8 Absolute CD3 Count % CD4 Cells Absolute CD4 Count % CD8 Cells HIV-1 RNA PCR copies/ml HIV-1 RNA (PCR) log 03/20/18 03/20/18 03/20/18 04:00 04:00 04:07 WBC 19.0 H RBC 3.53 L Hgb 10.5 L Hct 31.2 L RDW Plt Count Lymph % (Auto) [place] % (Auto) Lymph # [place] # Seg Neutrophils % Seg Neuts % (Manual) 94.0 H Lymphocytes % (Manual) 4.0 L Monocytes % (Manual) Seg Neutrophils # Seg Neutrophils # Man 17.9 H Abs Lymphs (Manual) Lymphocytes # (Manual) 0.8 L Monocytes # (Manual) PT INR APTT Fibrinogen POC ABG pH 7.342 L POC ABG pCO2 48.4 H POC ABG pO2 VBG pH Sodium Potassium Chloride 107.1 H Carbon Dioxide BUN 30 H Creatinine Glucose 143 H POC Glucose Lactic Acid Calcium 8.1 L Phosphorus Magnesium Iron Ferritin Total Bilirubin Direct Bilirubin Alkaline Phosphatase Lactate Dehydrogenase Total Creatine Kinase NT-Pro-B Natriuret Pep Total Protein Albumin Triglycerides Vitamin B12 Folate Urine WBC (Auto) Urine Creatinine Urine Total Protein Complement C3 Lymph Enumerat CD4/CD8 Absolute CD3 Count % CD4 Cells Absolute CD4 Count % CD8 Cells HIV-1 RNA PCR copies/ml HIV-1 RNA (PCR) log 03/20/18 03/20/18 03/20/18 11:31 17:55 23:50 WBC RBC Hgb Hct RDW Plt Count Lymph % (Auto) [place] % (Auto) Lymph # [place] # Seg Neutrophils % Seg Neuts % (Manual) Lymphocytes % (Manual) Monocytes % (Manual) Seg Neutrophils # Seg Neutrophils # Man Abs Lymphs (Manual) Lymphocytes # (Manual) Monocytes # (Manual) PT INR APTT Fibrinogen POC ABG pH POC ABG pCO2 POC ABG pO2 VBG pH Sodium Potassium Chloride Carbon Dioxide BUN Creatinine Glucose POC Glucose 136 H 162 H 148 H Lactic Acid Calcium Phosphorus Magnesium Iron Ferritin Total Bilirubin Direct Bilirubin Alkaline Phosphatase Lactate Dehydrogenase Total Creatine Kinase NT-Pro-B Natriuret Pep Total Protein Albumin Triglycerides Vitamin B12 Folate Urine WBC (Auto) Urine Creatinine Urine Total Protein Complement C3 Lymph Enumerat CD4/CD8 Absolute CD3 Count % CD4 Cells Absolute CD4 Count % CD8 Cells HIV-1 RNA PCR copies/ml HIV-1 RNA (PCR) log 03/21/18 03/21/18 03/21/18 04:41 05:15 05:15 WBC RBC 2.37 L Hgb 7.2 L D Hct 21.4 L D RDW Plt Count Lymph % (Auto) 8.9 L [place] % (Auto) Lymph # 1.0 L [place] # Seg Neutrophils % 82.1 H Seg Neuts % (Manual) Lymphocytes % (Manual) Monocytes % (Manual) Seg Neutrophils # 8.9 H Seg Neutrophils # Man Abs Lymphs (Manual) Lymphocytes # (Manual) Monocytes # (Manual) PT INR APTT Fibrinogen POC ABG pH 7.344 L POC ABG pCO2 52.8 H POC ABG pO2 140 H VBG pH Sodium Potassium 3.0 L D Chloride 117.5 H Carbon Dioxide 21 L BUN 21 H Creatinine 0.5 L Glucose 118 H POC Glucose Lactic Acid Calcium 6.0 L D Phosphorus 1.90 L D Magnesium Iron Ferritin Total Bilirubin Direct Bilirubin Alkaline Phosphatase Lactate Dehydrogenase Total Creatine Kinase NT-Pro-B Natriuret Pep Total Protein Albumin Triglycerides Vitamin B12 Folate Urine WBC (Auto) Urine Creatinine Urine Total Protein Complement C3 Lymph Enumerat CD4/CD8 Absolute CD3 Count % CD4 Cells Absolute CD4 Count % CD8 Cells HIV-1 RNA PCR copies/ml HIV-1 RNA (PCR) log 03/21/18 03/21/18 03/21/18 05:15 05:23 08:25 WBC RBC Hgb 9.0 L Hct 28.1 L D RDW Plt Count Lymph % (Auto) [place] % (Auto) Lymph # [place] # Seg Neutrophils % Seg Neuts % (Manual) Lymphocytes % (Manual) Monocytes % (Manual) Seg Neutrophils # Seg Neutrophils # Man Abs Lymphs (Manual) Lymphocytes # (Manual) Monocytes # (Manual) PT INR APTT Fibrinogen POC ABG pH POC ABG pCO2 POC ABG pO2 VBG pH Sodium Potassium Chloride Carbon Dioxide BUN Creatinine Glucose POC Glucose 159 H Lactic Acid Calcium Phosphorus Magnesium 1.60 L Iron Ferritin Total Bilirubin Direct Bilirubin Alkaline Phosphatase Lactate Dehydrogenase Total Creatine Kinase NT-Pro-B Natriuret Pep Total Protein Albumin Triglycerides Vitamin B12 Folate Urine WBC (Auto) Urine Creatinine Urine Total Protein Complement C3 Lymph Enumerat CD4/CD8 Absolute CD3 Count % CD4 Cells Absolute CD4 Count % CD8 Cells HIV-1 RNA PCR copies/ml HIV-1 RNA (PCR) log 03/21/18 03/21/18 03/21/18 12:27 13:39 18:04 WBC RBC Hgb Hct RDW Plt Count Lymph % (Auto) [place] % (Auto) Lymph # [place] # Seg Neutrophils % Seg Neuts % (Manual) Lymphocytes % (Manual) Monocytes % (Manual) Seg Neutrophils # Seg Neutrophils # Man Abs Lymphs (Manual) Lymphocytes # (Manual) Monocytes # (Manual) PT INR APTT Fibrinogen POC ABG pH POC ABG pCO2 50.9 H POC ABG pO2 60 L VBG pH Sodium Potassium Chloride Carbon Dioxide BUN Creatinine Glucose POC Glucose 177 H 119 H Lactic Acid Calcium Phosphorus Magnesium Iron Ferritin Total Bilirubin Direct Bilirubin Alkaline Phosphatase Lactate Dehydrogenase Total Creatine Kinase NT-Pro-B Natriuret Pep Total Protein Albumin Triglycerides Vitamin B12 Folate Urine WBC (Auto) Urine Creatinine Urine Total Protein Complement C3 Lymph Enumerat CD4/CD8 Absolute CD3 Count % CD4 Cells Absolute CD4 Count % CD8 Cells HIV-1 RNA PCR copies/ml HIV-1 RNA (PCR) log 03/22/18 03/22/18 03/22/18 00:15 05:28 05:36 WBC RBC Hgb Hct RDW Plt Count Lymph % (Auto) [place] % (Auto) Lymph # [place] # Seg Neutrophils % Seg Neuts % (Manual) Lymphocytes % (Manual) Monocytes % (Manual) Seg Neutrophils # Seg Neutrophils # Man Abs Lymphs (Manual) Lymphocytes # (Manual) Monocytes # (Manual) PT INR APTT Fibrinogen POC ABG pH POC ABG pCO2 POC ABG pO2 155 H VBG pH Sodium Potassium Chloride Carbon Dioxide BUN Creatinine Glucose POC Glucose 125 H 140 H Lactic Acid Calcium Phosphorus Magnesium Iron Ferritin Total Bilirubin Direct Bilirubin Alkaline Phosphatase Lactate Dehydrogenase Total Creatine Kinase NT-Pro-B Natriuret Pep Total Protein Albumin Triglycerides Vitamin B12 Folate Urine WBC (Auto) Urine Creatinine Urine Total Protein Complement C3 Lymph Enumerat CD4/CD8 Absolute CD3 Count % CD4 Cells Absolute CD4 Count % CD8 Cells HIV-1 RNA PCR copies/ml HIV-1 RNA (PCR) log 03/22/18 03/22/18 03/23/18 17:13 23:45 05:09 WBC RBC Hgb Hct RDW Plt Count Lymph % (Auto) [place] % (Auto) Lymph # [place] # Seg Neutrophils % Seg Neuts % (Manual) Lymphocytes % (Manual) Monocytes % (Manual) Seg Neutrophils # Seg Neutrophils # Man Abs Lymphs (Manual) Lymphocytes # (Manual) Monocytes # (Manual) PT INR APTT Fibrinogen POC ABG pH POC ABG pCO2 POC ABG pO2 VBG pH Sodium Potassium Chloride Carbon Dioxide BUN Creatinine Glucose POC Glucose 133 H 119 H 112 H Lactic Acid Calcium Phosphorus Magnesium Iron Ferritin Total Bilirubin Direct Bilirubin Alkaline Phosphatase Lactate Dehydrogenase Total Creatine Kinase NT-Pro-B Natriuret Pep Total Protein Albumin Triglycerides Vitamin B12 Folate Urine WBC (Auto) Urine Creatinine Urine Total Protein Complement C3 Lymph Enumerat CD4/CD8 Absolute CD3 Count % CD4 Cells Absolute CD4 Count % CD8 Cells HIV-1 RNA PCR copies/ml HIV-1 RNA (PCR) log 03/23/18 03/23/1819 12:10 17:40 05:44 WBC RBC Hgb Hct RDW Plt Count Lymph % (Auto) [place] % (Auto) Lymph # [place] # Seg Neutrophils % Seg Neuts % (Manual) Lymphocytes % (Manual) Monocytes % (Manual) Seg Neutrophils # Seg Neutrophils # Man Abs Lymphs (Manual) Lymphocytes # (Manual) Monocytes # (Manual) PT INR APTT Fibrinogen POC ABG pH POC ABG pCO2 POC ABG pO2 VBG pH Sodium Potassium Chloride Carbon Dioxide BUN Creatinine Glucose POC Glucose 112 H 116 H 149 H Lactic Acid Calcium Phosphorus Magnesium Iron Ferritin Total Bilirubin Direct Bilirubin Alkaline Phosphatase Lactate Dehydrogenase Total Creatine Kinase NT-Pro-B Natriuret Pep Total Protein Albumin Triglycerides Vitamin B12 Folate Urine WBC (Auto) Urine Creatinine Urine Total Protein Complement C3 Lymph Enumerat CD4/CD8 Absolute CD3 Count % CD4 Cells Absolute CD4 Count % CD8 Cells HIV-1 RNA PCR copies/ml HIV-1 RNA (PCR) log 03/24/18 03/24/18 07:34 07:34 WBC RBC 3.53 L Hgb 10.0 L Hct 30.7 L RDW Plt Count Lymph % (Auto) [place] % (Auto) 14.3 H Lymph # [place] # 1.2 H Seg Neutrophils % Seg Neuts % (Manual) Lymphocytes % (Manual) Monocytes % (Manual) Seg Neutrophils # Seg Neutrophils # Man Abs Lymphs (Manual) Lymphocytes # (Manual) Monocytes # (Manual) PT INR APTT Fibrinogen POC ABG pH POC ABG pCO2 POC ABG pO2 VBG pH Sodium Potassium Chloride Carbon Dioxide BUN Creatinine Glucose 105 H POC Glucose Lactic Acid Calcium Phosphorus Magnesium Iron Ferritin Total Bilirubin Direct Bilirubin Alkaline Phosphatase Lactate Dehydrogenase Total Creatine Kinase NT-Pro-B Natriuret Pep Total Protein Albumin Triglycerides Vitamin B12 Folate Urine WBC (Auto) Urine Creatinine Urine Total Protein Complement C3 Lymph Enumerat CD4/CD8 Absolute CD3 Count % CD4 Cells Absolute CD4 Count % CD8 Cells HIV-1 RNA PCR copies/ml HIV-1 RNA (PCR) log
--- NOTE | 2018-03-24 14:35 | Progress Note ---
Assessment and Plan Cultures: 03/09/2018 blood culture: Hemophilus hemolyticus in both sets 03/09/2018 influenza rapid: Negative 03/10/2018 urine culture: Negative 03/12/2018 Resp culture: usual resp thomas. 03/12/2018 Crypto Ag serum: negative. 03/13/2018 blood culture BAL 03/18/2018 +MRSA A/P: 33/M with no medical history, admitted with: 1) Septic shock: resolved; etio ? H. flu bacteremia. Much improved. S/P BAL 03/18/2018 +MRSA. On IV Vancomycin, complete 7 days. 2) Acute respiratory failure: Initial CXR not suggestive of pneumonia, low suspicion for PJP pneumonia especially since patient reported a good recent CD4 count. Repeat CXRs are probably more suggestive of fluid overload / pulmonary edema which has steadily been improving with diuretics. Continue PCP prophylaxis. 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 Initial CXR not suggestive of pneumonia. Repeat blood cultures neg. CT chest showed possible LLL infiltrate/atelectasis/mucous plugging. Completed 10 days of Cefepime. 4) HIV disease: Apparently he has been HIV positive, used to be on meds - Genvoya but stopped taking it 6 months ago, states his last CD4 count was 400+. - FZ4=782 / VL 51,300 on 03/10/2018. Now that platelet issues and renal issues resolved, started bactrim and d/seamus Atovaquone. 5) Acute renal failure: resolved. 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 [id number] normal. FELICIA neg, ANCA neg. C3 low (unclear significance), C4 normal. Hematology following. 6) Cardiomyopathy: low EF. etiology unclear. ?HIV related. Recs: - continue IV vancomycin to cover empirically for MRSA pneumonia/tracheobronchitis D6 today, plan for total 7 days - continue PO Bactrim DS 1 tab daily for prophylaxis - Patient will follow up with his outside HIV provider to resume Genvoya/ARVs upon discharge MD [facility] C: [phone] O: [phone] F: [phone] Subjective Date of service: 03/24/18 Principal diagnosis: itp Interval history: No fever. Feeling well. Weaned off oxygen. Has no complaints. No diarrhea. No cough or SOB. Objective - Exam Narrative Exam: Physical Exam: Constitutional: awake, alert, no distress. Head, Ears, Nose: Normocephalic, atraumatic. External ears, nose normal Eyes: Conjunctivae/corneas clear. No icterus. No ptosis. Neck: Supple, no meningeal signs Oral: no thrush Cardiovascular: S1, S2 normal, no murmur Respiratory: clear to auscultation bilaterally, no wheeze GI: soft, bowel sounds normal. No peritoneal signs Musculoskeletal: No pedal edema, no cyanosis. Skin: No rash or abscess Hem/Lymphatic: No palpable cervical or supraclavicular nodes. No lymphangitis Psych: calm, no agitation Neurological: awake, alert, answering questions. - Constitutional Vitals: Vital Signs Temp Pulse Resp BP Pulse Ox 98.6 F 73 18 119/78 100 03/24/18 09:16 03/24/18 10:00 03/24/18 09:13 03/24/18 09:13 03/24/18 09:21 Temperature -Last 24 Hours Temperature 98.6 F Temperature 98.0 F Temperature 98.2 F Temperature 98.4 F - Labs CBC & Chem 7: 03/24/18 07:34 03/24/18 07:34 Labs: Abnormal lab results 03/23/18 03/24/18 03/24/18 Range/Units 17:40 05:44 07:34 RBC 3.53 L (3.65-5.03) M/mm3 Hgb 10.0 L (11.8-15.2) gm/dl Hct 30.7 L (35.5-45.6) % [place] % (Auto) 14.3 H (0.0-7.3) % [place] # 1.2 H (0.0-0.8) K/mm3 Glucose (75-100) mg/dL POC Glucose 116 H 149 H (70-105) 03/24/18 Range/Units 07:34 RBC (3.65-5.03) M/mm3 Hgb (11.8-15.2) gm/dl Hct (35.5-45.6) % [place] % (Auto) (0.0-7.3) % [place] # (0.0-0.8) K/mm3 Glucose 105 H (75-100) mg/dL POC Glucose (70-105)
--- NOTE | 2018-03-24 14:54 | Progress Note ---
Assessment and Plan Assessment and plan: 33 yo with HIV infection. He initially presented with nausea, vomiting, general weakness and chills for 2 days. He was getting weaker, no Urine output therefore came to ED for evaluation. In ED, labs show acute kidney injury with metabolic acidosis thrombocytopenia. He was Sepic, hypotensive. 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 He received platelet transfusion and steroids after which she improved * He suffered a SCOTT, which resolved with IV fluids, nephrotoxins are being avoided, his electrolytes have been repleted. He was medically treated for hyperkalemia at some point but then now became hypokalemic and received potassium supplements today * The patient is HIV positive he stopped taking his medications over 6 years ago, management per infectious disease, on prophylaxis antibiotics for opportunistic organisms * The patient had worsening respiratory failure, has been on ventilator since 03/12/2018. He then went on to have bronchoscopy, BAL culture grew MRSA, patient was started on vancomycin on 03/21/18, ID managing * patient extubated on 03/22/18, was on high flow oxygen, now weaned off oxygen * last day of iv vanc is 03/25, can dc home afterwards Diagnoses PNA due to MRSA Septic shock/Haemophilus hemolyticus bacteremia ITP, Thrombocytopenia, stable and improving, Acute hypoxic respiratory failure on MV >96 hours, intubated since 03/12/18 hyperkalemia, then later developed hypokalemia HIV/AIDs SCOTT-ATN Hyponatremia Hypoglycemia. Coagulopathy, Acute toxic metabolic encephalpathy Critical care time 35 minutes The patient does not want his HIV status being discussed with his family. His brother apparently was aware, but his mother wasn't. Department of Health had contacted her and told her, so now the mother is also aware History Interval history: no agitation no n/v, no diarrhea sob is resolved No fevers, no seizures no vomiting Hospitalist Physical - Physical exam Narrative exam: General.: Appears well, no distress, nontoxic HEENT: Moist mucous membranes, extraocular muscles intact, no lymphadenopathy Neck: supple Cardiac: S1-S2 heard Lungs: CTA BL Abdomen: soft , nontender, nondistended, bowel sounds positive Extremities: no edema clubbing or cyanosis Skin: no rash or lesions Neurologic: no deficits psych, calm and cooperative - Constitutional Vitals: Temp Pulse Resp BP Pulse Ox 98.6 F 73 18 119/78 100 03/24/18 09:16 03/24/18 10:00 03/24/18 09:13 03/24/18 09:13 03/24/18 09:21 General appearance: Present: cachectic, other (chronically ill-appearing) Results - Labs CBC & Chem 7: 03/24/18 07:34 03/24/18 07:34 Labs: Laboratory Last Values WBC 8.5 K/mm3 (4.5-11.0) 03/24/18 07:34 RBC 3.53 M/mm3 (3.65-5.03) L 03/24/18 07:34 Hgb 10.0 gm/dl (11.8-15.2) L 03/24/18 07:34 Hct 30.7 % (35.5-45.6) L 03/24/18 07:34 MCV 87 fl (84-94) 03/24/18 07:34 MCH 28 pg (28-32) 03/24/18 07:34 MCHC 33 % (32-34) 03/24/18 07:34 RDW 14.2 % (13.2-15.2) 03/24/18 07:34 Plt Count 226 K/mm3 (140-440) 03/24/18 07:34 Lymph % (Auto) 14.9 % (13.4-35.0) 03/24/18 07:34 [place] % (Auto) 14.3 % (0.0-7.3) H 03/24/18 07:34 Eos % (Auto) 1.4 % (0.0-4.3) 03/24/18 07:34 Baso % (Auto) 1.1 % (0.0-1.8) 03/24/18 07:34 Lymph # 1.3 K/mm3 (1.2-5.4) 03/24/18 07:34 [place] # 1.2 K/mm3 (0.0-0.8) H 03/24/18 07:34 Eos # 0.1 K/mm3 (0.0-0.4) 03/24/18 07:34 Baso # 0.1 K/mm3 (0.0-0.1) 03/24/18 07:34 Add Manual Diff Complete 03/20/18 04:00 Total Counted 100 03/20/18 04:00 Seg Neutrophils % 68.3 % (40.0-70.0) 03/24/18 07:34 Seg Neuts % (Manual) 94.0 % (40.0-70.0) H 03/20/18 04:00 Band Neutrophils % 0 % 03/20/18 04:00 Lymphocytes % (Manual) 4.0 % (13.4-35.0) L 03/20/18 04:00 Reactive Lymphs % (Man) 0 % 03/20/18 04:00 Monocytes % (Manual) 2.0 % (0.0-7.3) 03/20/18 04:00 Eosinophils % (Manual) 0 % (0.0-4.3) 03/20/18 04:00 Basophils % (Manual) 0 % (0.0-1.8) 03/20/18 04:00 Metamyelocytes % 0 % 03/20/18 04:00 Myelocytes % 0 % 03/20/18 04:00 Promyelocytes % 0 % 03/20/18 04:00 Blast Cells % 0 % 03/20/18 04:00 Nucleated RBC % Not Reportable 03/20/18 04:00 Seg Neutrophils # 5.8 K/mm3 (1.8-7.7) 03/24/18 07:34 Seg Neutrophils # Man 17.9 K/mm3 (1.8-7.7) H 03/20/18 04:00 Band Neutrophils # 0.0 K/mm3 03/20/18 04:00 Abs Lymphs (Manual) 779 cells/uL (850-3900) L 03/10/18 18:15 Lymphocytes # (Manual) 0.8 K/mm3 (1.2-5.4) L 03/20/18 04:00 Abs React Lymphs (Man) 0.0 K/mm3 03/20/18 04:00 Monocytes # (Manual) 0.4 K/mm3 (0.0-0.8) 03/20/18 04:00 Eosinophils # (Manual) 0.0 K/mm3 (0.0-0.4) 03/20/18 04:00 Basophils # (Manual) 0.0 K/mm3 (0.0-0.1) 03/20/18 04:00 Metamyelocytes # 0.0 K/mm3 03/20/18 04:00 Myelocytes # 0.0 K/mm3 03/20/18 04:00 Promyelocytes # 0.0 K/mm3 03/20/18 04:00 Blast Cells # 0.0 K/mm3 03/20/18 04:00 Pathologist Review 03/12/18 06:29 WBC Morphology Not Reportable 03/20/18 04:00 Hypersegmented Neuts Not Reportable 03/20/18 04:00 Hyposegmented Neuts Not Reportable 03/20/18 04:00 Hypogranular Neuts Not Reportable 03/20/18 04:00 Smudge Cells Not Reportable 03/20/18 04:00 Toxic Granulation Not Reportable 03/20/18 04:00 Toxic Vacuolation Not Reportable 03/20/18 04:00 Dohle Bodies Not Reportable 03/20/18 04:00 Pelger-Huet Anomaly Not Reportable 03/20/18 04:00 Kamar Rods Not Reportable 03/20/18 04:00 Platelet Estimate Consistent w auto 03/20/18 04:00 Clumped Platelets Not Reportable 03/20/18 04:00 Plt Clumps, EDTA Not Reportable 03/20/18 04:00 Large Platelets Not Reportable 03/20/18 04:00 Giant Platelets Not Reportable 03/20/18 04:00 Platelet Satelliting Not Reportable 03/20/18 04:00 Plt Morphology Comment Not Reportable 03/20/18 04:00 RBC Morphology Not Reportable 03/20/18 04:00 Dimorphic RBCs Not Reportable 03/20/18 04:00 Polychromasia Not Reportable 03/20/18 04:00 Hypochromasia Not Reportable 03/20/18 04:00 Poikilocytosis Not Reportable 03/20/18 04:00 Anisocytosis 1+ 03/20/18 04:00 Microcytosis Not Reportable 03/20/18 04:00 Macrocytosis Not Reportable 03/20/18 04:00 Spherocytes Not Reportable 03/20/18 04:00 Pappenheimer Bodies Not Reportable 03/20/18 04:00 Sickle Cells Not Reportable 03/20/18 04:00 Target Cells Not Reportable 03/20/18 04:00 Tear Drop Cells Not Reportable 03/20/18 04:00 Ovalocytes Not Reportable 03/20/18 04:00 Stomatocytes Rare 03/14/18 06:00 Helmet Cells Not Reportable 03/20/18 04:00 Barnes-Dasher Bodies Not Reportable 03/20/18 04:00 [place] Rings Not Reportable 03/20/18 04:00 Lyssa Cells Not Reportable 03/20/18 04:00 Bite Cells Not Reportable 03/20/18 04:00 Crenated Cell Not Reportable 03/20/18 04:00 Elliptocytes Not Reportable 03/20/18 04:00 Acanthocytes (Spur) Not Reportable 03/20/18 04:00 Rouleaux Not Reportable 03/20/18 04:00 Hemoglobin C Crystals Not Reportable 03/20/18 04:00 Schistocytes Not Reportable 03/20/18 04:00 Malaria parasites Not Reportable 03/20/18 04:00 Jose Bodies Not Reportable 03/20/18 04:00 Hem Pathologist Commnt No 03/20/18 04:00 PT 17.2 Sec. (12.2-14.9) H 03/10/18 18:15 INR 1.36 (0.87-1.13) H 03/10/18 18:15 APTT 38.5 Sec. (24.2-36.6) H 03/10/18 18:15 Fibrinogen 852 mg/dl (211-480) H 03/10/18 18:15 POC ABG pH 7.447 (7.35-7.45) 03/22/18 05:28 POC ABG pCO2 41.9 (35-45) 03/22/18 05:28 POC ABG pO2 155 (80-105) H 03/22/18 05:28 POC ABG HCO3 28.9 03/22/18 05:28 POC ABG Total CO2 30 03/22/18 05:28 POC ABG O2 Sat 99 03/22/18 05:28 POC ABG Base Excess 5 03/22/18 05:28 VBG pH 7.297 (7.320-7.420) L 03/09/18 07:00 FiO2 45 % 03/22/18 05:28 Sodium 137 mmol/L (137-145) D 03/24/18 07:34 Potassium 4.0 mmol/L (3.6-5.0) D 03/24/18 07:34 Chloride 102.2 mmol/L (98-107) 03/24/18 07:34 Carbon Dioxide 24 mmol/L (22-30) 03/24/18 07:34 Anion Gap 15 mmol/L 03/24/18 07:34 BUN 14 mg/dL (9-20) 03/24/18 07:34 Creatinine 0.8 mg/dL (0.8-1.5) D 03/24/18 07:34 Estimated GFR > 60 ml/min 03/24/18 07:34 BUN/Creatinine Ratio 18 % 03/24/18 07:34 Glucose 105 mg/dL (75-100) H 03/24/18 07:34 POC Glucose 149 (70-105) H 03/24/18 05:44 Osmolality 256 Mosm/kg 03/14/18 07:00 Lactic Acid 4.10 mmol/L (0.7-2.0) H* 03/10/18 01:00 Uric Acid 3.5 mg/dL (3.5-7.6) 03/17/18 04:25 Calcium 8.4 mg/dL (8.4-10.2) D 03/24/18 07:34 Phosphorus 3.00 mg/dL (2.5-4.5) 03/23/18 08:44 Magnesium 1.60 mg/dL (1.7-2.3) L 03/21/18 05:15 Iron 42 ug/dL (49-181) L 03/14/18 07:00 TIBC 262 mcg/dL (250-450) 03/14/18 07:00 Ferritin 532.4 ng/mL (13.0-400.0) H 03/14/18 07:00 Total Bilirubin 2.30 mg/dL (0.1-1.2) H 03/12/18 06:29 Direct Bilirubin 1.5 mg/dL (0-0.2) H 03/12/18 06:29 Indirect Bilirubin 0.8 mg/dL 03/12/18 06:29 AST 33 units/L (5-40) 03/12/18 06:29 ALT 48 units/L (7-56) 03/12/18 06:29 Alkaline Phosphatase 111 units/L (35-129) 03/12/18 06:29 Lactate Dehydrogenase 232 units/L (91-180) H 03/17/18 04:25 Total Creatine Kinase 33 units/L (55-170) L 03/17/18 04:25 NT-Pro-B Natriuret Pep 88119 pg/mL (0-450) H 03/10/18 11:16 Total Protein 6.2 g/dL (6.3-8.2) L 03/12/18 06:29 Albumin 3.1 g/dL (3.9-5) L 03/12/18 06:29 Albumin/Globulin Ratio 1.0 % 03/12/18 06:29 Triglycerides 177 mg/dL (2-149) H 03/19/18 06:00 Vitamin B12 1825 pg/mL (211-911) H 03/14/18 07:00 Folate 6.29 ng/mL (7.3-26.0) L 03/14/18 07:00 Urine Color Red (Yellow) 03/10/18 06:00 Urine Turbidity Cloudy (Clear) 03/10/18 06:00 Urine pH 5.0 (5.0-7.0) 03/10/18 06:00 Ur Specific [place] 1.009 (1.003-1.030) 03/10/18 06:00 Urine Protein 100 mg/dl mg/dL (Negative) 03/10/18 06:00 Urine Glucose (UA) Neg mg/dL (Negative) 03/10/18 06:00 Urine Ketones Neg mg/dL (Negative) 03/10/18 06:00 Urine Blood Lg (Negative) 03/10/18 06:00 Urine Nitrite Neg (Negative) 03/10/18 06:00 Urine Bilirubin Neg (Negative) 03/10/18 06:00 Urine Urobilinogen < 2.0 mg/dL (<2.0) 03/10/18 06:00 Ur Leukocyte Esterase Neg (Negative) 03/10/18 06:00 Urine WBC (Auto) 32.0 /HPF (0.0-6.0) H 03/10/18 06:00 Urine RBC (Auto) > 182.0 /HPF (0.0-6.0) 03/10/18 06:00 U Epithel Cells (Auto) 5.0 /HPF (0-13.0) 03/09/18 14:39 Urine Bacteria (Auto) 2+ /HPF (Negative) 03/10/18 06:00 Urine WBC Clumps Few /HPF 03/09/18 14:39 Amorphous Crystals 3+ 03/10/18 06:00 Granular Casts 29 /LPF 03/10/18 06:00 Urine Creatinine 210.7 mg/dL (0.1-20.0) H 03/09/18 14:39 Protein/Creatinin Ratio 3.89 03/09/18 14:39 Urine Sodium 81 mmol/L 03/14/18 18:50 Urine Total Protein 820 mg/dL (5-11.8) H 03/09/18 14:39 Vancomycin Trough 19.7 ug/mL (5.0-20.0) 03/22/18 12:10 Urine Opiates Screen Presumptive negative 03/16/18 Unknown Urine Methadone Screen Presumptive negative 03/16/18 Unknown Ur Barbiturates Screen Presumptive negative 03/16/18 Unknown Ur Phencyclidine Scrn Presumptive negative 03/16/18 Unknown Ur Amphetamines Screen Presumptive negative 03/16/18 Unknown U Benzodiazepines Scrn Presumptive negative 03/16/18 Unknown Urine Cocaine Screen Presumptive negative 03/16/18 Unknown U Marijuana (THC) Screen Presumptive positive 03/16/18 Unknown Drugs of Abuse Note Disclamer 03/16/18 Unknown FELICIA Screen Negative (Negative) 03/10/18 11:16 Proteinase 3 (PR3) Ab <1.0 AI (<1.0) 03/10/18 11:16 Myeloperoxidase Ab <1.0 AI (<1.0) 03/10/18 11:16 Glomerular Base Mem IgG See scanned result 03/10/18 11:16 Complement C3 83 mg/dL (82-185) 03/10/18 11:16 Complement C4 30 mg/dL (15-53) 03/10/18 11:16 Lymph Enumerat CD4/CD8 0.56 (0.86-5.00) L 03/10/18 18:15 % CD3 Cells 67 % (57-85) 03/10/18 18:15 Absolute CD3 Count 524 cells/uL (840-3060) L 03/10/18 18:15 % CD4 Cells 24 % (30-61) L 03/10/18 18:15 Absolute CD4 Count 194 cells/uL (490-1740) L 03/10/18 18:15 % CD8 Cells 43 % (12-42) H 03/10/18 18:15 Absolute CD8 Count 344 cells/uL (180-1170) 03/10/18 18:15 % CD19 Cells 25 % (6-29) 03/10/18 18:15 Absolute CD19 Count 188 cells/uL (110-660) 03/10/18 18:15 Hepatitis A IgM Ab Non-reactive (NonReactive) 03/09/18 20:39 Hep Bs Antigen Non-reactive (Negative) 03/09/18 20:39 Hep B Core IgM Ab Non-reactive (NonReactive) 03/09/18 20:39 Hepatitis C Antibody Non-reactive (NonReactive) 03/09/18 20:39 HIV-1 Antibody See scanned result 03/09/18 20:39 HIV-1 RNA PCR copies/ml [id number] Copies/mL H 03/10/18 18:15 HIV-1 RNA (PCR) log 4.71 Log cps/mL H 03/10/18 18:15 HIV-2 Ab (Immunoblot) See scanned result 03/09/18 20:39 HIV 1&2 Antibody Rapid Reactive (Non React) 03/09/18 20:39 HIV P24 Antigen Non react (Non React) 03/09/18 20:39 Influenza A (Rapid) Negative (Negative) 03/09/18 Unknown Influenza B (Rapid) Negative (Negative) 03/09/18 Unknown Schistocytes Smear Rare 03/10/18 11:16 Miscellaneous Test Flexitest 1 03/12/18 16:45 Blood Type O POSITIVE 03/09/18 12:36 Antibody Screen Negative 03/09/18 12:36 Nutrition/Malnutrition Assess - Dietary Evaluation Nutrition/Malnutrition Findings: Nutrition Notes Start: 03/12/18 12:51 Freq: Status: Active Protocol: Document 03/22/18 13:55 OCTAVIO (Rec: 03/22/18 14:44 OCTAVIO [email or web address]) Co-Sign 03/22/18 13:55 NHALL Nutrition Notes Initial or Follow up Reassessment Current Diagnosis Acute Kidney Injury Sepsis Respiratory Failure Other Pertinent Diagnosis HIV Current Diet NPO Labs/Tests Reviewed Pertinent Medications Reviewed Height 5 ft 11 in Weight 70.2 kg [place] Body Weight (lbs) 172.0 BMI 21.6 Subjective/Other Information F/u for TF rate. Pt. TF on hold for the time being per MD . Pt. is to be extubated today . Burn Absent Trauma Absent #2 Nutrition Diagnosis Inadequate oral intake Diagnosis Progress(for reassessment Continues documentation) Is patient on ventilator? Yes Is Patient Ambulatory and/or Out of Bed No REE-([facility]-confined to bed) [phone] Calculation Used for Recommendations [facility] Additional Notes PRO: 84-140g (1.2-2g/kg) Fluid: 1ml/kcal Nutrition Intervention Change Diet Order: Advance diet Nutrition Support: Resume TF Goal #1 Restart TF or advance diet when medically feasible Anticipated Discharge Needs: Unable to determine at this time Follow-Up By: 03/24/18 Additional Comments F/u: TF restart/diet advancement
[2018-03-24] MEDS: DELTASONE PO SCH (18:17)
[2018-03-25] MEDS: VANCOMYCIN 1,250 MG in NACL 0.9% 250ML 250 ML IV SCH ×2 (04:20→12:50)
[2018-03-25] MEDS: TYLENOL PO PRN (05:53)
[2018-03-25] MEDS: HumaLOG SUB-Q SCH ×3 (06:34→12:12)
[2018-03-25 08:35] VITALS: BP 109/77
[2018-03-25] MEDS ORDERED: DELTASONE PO SCH (10:00)
--- NOTE | 2018-03-25 10:59 | Discharge Summary ---
Providers - Providers Date of Admission: 03/09/18 09:19 Attending physician: KENYATTA SPENCER MD 03/09/18 09:40 Consult to Physician [CONS] Urgent Comment: Dr. Stratton notified @ 09:40- [facility] Consulting Provider: TAYLER STRATTON Physician Instructions: Reason For Exam: acute renal failure 03/09/18 09:44 Consult to Physician [CONS] Routine Comment: Alesia in office notified @ 11:23- [facility] Consulting Provider: ROYAL GRIMES Physician Instructions: Reason For Exam: Shell Plater, Hypotension 03/09/18 10:42 Consult to Case Management [CONS] Routine Services Needed at Discharge: Other Notified:: cm notified Comment:: dc planning 03/09/18 10:48 Consult to Physician [CONS] Routine Comment: Edmund in office notified @ 11:28- [facility] Consulting Provider: LIVIER PEREZ Physician Instructions: Reason For Exam: Possible sepsis 03/10/18 15:41 Consult to Physician [CONS] Routine Comment: Consulting Provider: EDINSON MONTANA Physician Instructions: Reason For Exam: Thrombocytopenia, Coagulopathy 03/11/18 12:26 Consult to Physician [CONS] Routine Comment: Consulting Provider: VADIM STRICKLAND Physician Instructions: Reason For Exam: Cardiomyopathy 03/12/18 07:49 Consult to Dietitian/Nutrition [CONS] Routine Physician Instructions: Reason For Exam: Reason for Consult: Evaluate nutritional intake 03/14/18 10:27 Consult to PICC Line RN [CONS] Routine Reason For Exam: Central line access Type Line:: PICC 03/21/18 10:14 Physical Therapy Evaluation and Treat [CONS] Routine Comment: Reason For Exam: Debility Primary care physician: [employer] Hospitalization Condition: Serious Hospital course: 33 yo with HIV infection. He initially presented with nausea, vomiting, general weakness and chills for 2 days. He was getting weaker, no Urine output therefore came to ED for evaluation. In ED, labs show acute kidney injury with metabolic acidosis thrombocytopenia. He was Sepic, hypotensive. 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 He received platelet transfusion and steroids after which she improved * He suffered a SCOTT, which resolved with IV fluids, nephrotoxins are being avoided, his electrolytes have been repleted. He was medically treated for hyperkalemia at some point but then now became hypokalemic and received potassium supplements, K normalized afterwards * The patient is HIV positive he stopped taking his medications over 6 years ago, management per infectious disease, on prophylaxis antibiotics for opportunistic organisms * The patient had worsening respiratory failure, has been on ventilator since 03/12/2018. He then went on to have bronchoscopy, BAL culture grew MRSA, patient was started on vancomycin on 03/21/18, ID managing * patient extubated on 03/22/18, was on high flow oxygen, now weaned off oxygen * he completed 7 days of of IV antibiotics, vancomycin for MRSA pneumonia. After which he was discharged Diagnoses PNA due to MRSA Septic shock/Haemophilus hemolyticus bacteremia ITP, Thrombocytopenia, stable and improving, Acute hypoxic respiratory failure on MV >96 hours, intubated since 03/12/18 hyperkalemia, then later developed hypokalemia HIV/AIDs SCOTT-ATN Hyponatremia Hypoglycemia. Coagulopathy, Acute toxic metabolic encephalpathy The patient did not want his HIV status being discussed with his family during his hospital stay Disposition: DC-01 TO HOME OR SELFCARE Time spent for discharge: 33 mins Core Measure Documentation - Palliative Care Palliative Care/ Comfort Measures: Not Applicable - Core Measures Any of the following diagnoses?: heart failure - Heart Failure Discharge Requirements LAUREN/ARB for LVSD if EF <40%: No Reason for no LAUREN/ARB: Hypotension Beta joseline at discharge: No Reason for no beta joseline on DC: Hypotension Exam - Constitutional Vitals: Temp Pulse Resp BP Pulse Ox 98.3 F 83 18 109/77 98 03/25/18 08:25 03/25/18 08:25 03/25/18 08:25 03/25/18 08:25 03/25/18 08:25 General appearance: Present: no acute distress, well-nourished - EENT Eyes: Present: PERRL ENT: hearing intact, clear oral mucosa - Neck Neck: Present: supple, normal ROM - Respiratory Respiratory effort: normal Respiratory: bilateral: CTA - Cardiovascular Heart Sounds: Present: S1 & S2. Absent: rub, click - Extremities Extremities: pulses symmetrical, No edema Peripheral Pulses: within normal limits - Abdominal General gastrointestinal: Present: soft, non-tender, non-distended, normal bowel sounds Male genitourinary: Present: normal - Integumentary Integumentary: Present: clear, warm, dry - Musculoskeletal Musculoskeletal: gait normal, strength equal bilaterally - Psychiatric Psychiatric: appropriate mood/affect, intact judgment & insight - Neurologic Neurologic: CNII-XII intact, moves all extremities Plan Follow up with: PRIMARY CARE,MD [Primary Care Provider] - 3-5 Days Prescriptions: Sulfamethoxazole/Trimethoprim [Bactrim DS TAB] 1 each PO DAILY #30 tablet
[2018-03-25] MEDS: FOLVITE PO SCH (12:10)
[2018-03-25] MEDS: BACTRIM DS PO SCH (12:10)
[2018-03-25] MEDS: PREVACID SOLUTAB FEEDTUBE SCH (12:11)
--- NOTE | 2018-03-25 13:05 | Progress Note ---
Assessment and Plan Cultures: 03/09/2018 blood culture: Hemophilus hemolyticus in both sets 03/09/2018 influenza rapid: Negative 03/10/2018 urine culture: Negative 03/12/2018 Resp culture: usual resp thomas. 03/12/2018 Crypto Ag serum: negative. 03/13/2018 blood culture BAL 03/18/2018 +MRSA A/P: 33/M with no medical history, admitted with: 1) Septic shock: resolved; etio ? H. flu bacteremia. Much improved. S/P BAL 03/18/2018 +MRSA. On IV Vancomycin, completed 7 days today. 2) Acute respiratory failure: Initial CXR not suggestive of pneumonia, low suspicion for PJP pneumonia especially since patient reported a good recent CD4 count. Repeat CXRs are probably more suggestive of fluid overload / pulmonary ed ella which has steadily been improving with diuretics. Continue PCP prophylaxis. 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 Initial CXR not suggestive of pneumonia. Repeat blood cultures neg. CT chest showed possible LLL infiltrate/atelectasis/mucous plugging. Completed 10 days of Cefepime. 4) HIV disease: Apparently he has been HIV positive, used to be on meds - Genvoya but stopped taking it 6 months ago, states his last CD4 count was 400+. - FD3=123 / VL 51,300 on 03/10/2018. Now that platelet issues and renal issues resolved, started bactrim and d/seamus Atovaquone. 5) Acute renal failure: resolved. 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 [id number] normal. FELICIA neg, ANCA neg. C3 low (unclear significance), C4 normal. Hematology following. 6) Cardiomyopathy: low EF. etiology unclear. ?HIV related. Recs: - d/seamus Vancomycin - Ok to discharge from ID standpoint, patient needs to continue PO Bactrim DS 1 tab daily for prophylaxis till he gets back on HIV therapy with immune reconstitution. One month prescription printed - Patient will follow up with his outside HIV provider to resume Genvoya/ARVs upon discharge d/w patient, his mother at bedside and Dr. Pereira. MD [facility] C: [phone] O: [phone] F: [phone] Subjective Date of service: 03/25/18 Principal diagnosis: itp Interval history: Doing well. No fever. No chest pain. No abdominal pain. Family at bedside. Objective - Exam Narrative Exam: Physical Exam: Constitutional: awake, alert, no distress. Head, Ears, Nose: Normocephalic, atraumatic. External ears, nose normal Eyes: Conjunctivae/corneas clear. No icterus. No ptosis. Neck: Supple, no meningeal signs Oral: no thrush Cardiovascular: S1, S2 normal, no murmur Respiratory: clear to auscultation bilaterally, no wheeze GI: soft, bowel sounds normal. No peritoneal signs Musculoskeletal: No pedal edema, no cyanosis. Skin: No rash or abscess Hem/Lymphatic: No palpable cervical or supraclavicular nodes. No lymphangitis Neurological: awake, alert, answering questions. - Constitutional Vitals: Vital Signs Temp Pulse Resp BP Pulse Ox 98.3 F 83 18 109/77 98 03/25/18 08:25 03/25/18 08:25 03/25/18 08:25 03/25/18 08:25 03/25/18 08:25 Temperature -Last 24 Hours Temperature 98.3 F Temperature 98.3 F Temperature 97.9 F Temperature 98.5 F Temperature 98.2 F - Labs CBC & Chem 7: 03/24/18 07:34 03/24/18 07:34
[2018-03-25] MEDS: SODIUM CHLORIDE FLUSH SYRINGE 10 ML IV SCH (13:21)
--- NOTE | 2018-03-25 18:00 | Hem/Onc Progress Note ---
Assessment and Plan 1. Thrombocytopenia. I reviewed the peripheral smear. I spoke to the laboratory inspector. The laboratory report mentioned no schistocytes. When I reviewed the smear it did not have any schistocytes. Creatinine is elevated. The patient is short of breath. 2. At this time, differential includes some idiopathic thrombocytopenic purpura. Other differentials include immunosuppression related or medication or infection related. The patient's PT, PTT is elevated, but fibrinogen is not low. At admission, chest x-ray was clear and now it has worsened. There is a clinical suspicion of this being infection or disseminated intravascular coagulation or acute respiratory distress syndrome. 3. Renal impairment. 4. Decreased urine output. 5. h/o Shortness of breath. 6. Human immunodeficiency virus, pt was on treatment. 7. discussed with IDT. 8. steroid trial. 9. BNP was elevated. 10. I ordered [id number]. 11. Abnormal liver function tests. 12. Being treated for Haemophilus influenzae. 13. CD4 count 400. I will follow the patient during inpatient stay. 03/11/2018 - d/w dr garrison - low EF pt is on dexa 40 daily s/p plt transfusion no active bleeding 03/12/2018 s/p plt transfusion on dexa intubated d/w lab reg [id number] HIV d/w dr ojeda 03/15 - low folate plt better once plt >100 - will look into altering steroids as per nurse - good urine OP 03/16/2017 - pt plt are better - will follow off pressors 03/17/2018 - hb low as s iron was low - iv iron trial plt 85 - ct dexa for now - once >100 will look into changing ADAMTS - report not seen 03/18/2018 - plt 140s - change dexa to prednisone hb better good urine OP still on vent' 03/19/2018 on vent plt stable - on oral prednisone 03/21/2018 - hb low - will repeat same plt stable - pt on prednsione - ct same for now 03/23 - pt off vent wants to go home pt on prednisone will follow as OP 03/25 - pt wants to go home OP follow up for ITP pt on prednisone 40 mg - Patient Problems (1) Thrombocytopenia Status: Acute Subjective Date of service: 03/25/18 Principal diagnosis: ITP Interval history: feeling better - wants to go home Objective - Constitutional Vitals: Last Vital Signs Temp 98.3 F 03/25/18 08:25 Pulse 83 03/25/18 08:25 Resp 18 03/25/18 08:25 BP 109/77 03/25/18 08:25 Pulse Ox 98 03/25/18 08:25 Pain Intensity (0-10): denies any pain General appearance: no acute distress Performance status: 2- selfcare, ambulatory - EENT Eyes: EOM intact ENT: clear oral mucosa Lymph node exam: negative cervical, negative supraclavicular - Neck Neck: normal ROM - Respiratory Respiratory effort: Positive: normal Respiratory: bilateral: CTA - Cardiovascular Heart Sounds: Present: S1 & S2 Extremities: No edema - Gastrointestinal General gastrointestinal: Present: soft Rectal Exam: deferred - Genitourinary Male genitourinary: Present: deferred - Integumentary Integumentary: warm - Musculoskeletal Musculoskeletal: strength equal bilaterally - Neurologic Neurologic: moves all extremities Medications & Allergies - Medications Allergies/Adverse Reactions: Allergies clindamycin Allergy (Verified 03/09/18 06:43) Swelling Home Medications: Home Medications Medication Instructions Recorded Confirmed Last Taken Type Prednisone [predniSONE 5 mg (6-Day 5 mg PO .TAPER #1 tab.ds.pk 03/25/18 Unknown Rx Pack, 21 Tabs)] Sulfamethoxazole/Trimethoprim 1 each PO DAILY #30 tablet 03/25/18 Unknown Rx [Bactrim DS TAB] Active Medications: reviewed in AM
== END 2018-03-25 14:16 | disposition home health service (06) | DRG 974 ==
LOC: ED 06:29 → CC1 09:19 → 4A 03-23 21:36
PROVIDERS: ADMIT Internal Medicine; ATTEND Internal Medicine
PROC: 30233R1 Transfusion of Nonautologous Platelets into Peripheral Vein, Percutaneous Approach (ICD-10-PCS; 2018-03-10)
PROC: 4A033R1 Measurement of Arterial Saturation, Peripheral, Percutaneous Approach (ICD-10-PCS; 2018-03-10)
PROC: 5A09357 Assistance with Respiratory Ventilation, Less than 24 Consecutive Hours, Continuous Positive Airway Pressure (ICD-10-PCS; 2018-03-10)
PROC: 5A09357 Assistance with Respiratory Ventilation, Less than 24 Consecutive Hours, Continuous Positive Airway Pressure (ICD-10-PCS; 2018-03-11)
PROC: 5A1955Z Respiratory Ventilation, Greater than 96 Consecutive Hours (ICD-10-PCS; principal; 2018-03-12)
PROC: 0BH17EZ Insertion of Endotracheal Airway into Trachea, Via Natural or Artificial Opening (ICD-10-PCS; 2018-03-12)
PROC: 5A09357 Assistance with Respiratory Ventilation, Less than 24 Consecutive Hours, Continuous Positive Airway Pressure (ICD-10-PCS; 2018-03-12)
PROC: 06HM33Z Insertion of Infusion Device into Right Femoral Vein, Percutaneous Approach (ICD-10-PCS; 2018-03-16)
PROC: 02HV33Z Insertion of Infusion Device into Superior Vena Cava, Percutaneous Approach (ICD-10-PCS; 2018-03-16)
PROC: 0B9J8ZX Drainage of Left Lower Lung Lobe, Via Natural or Artificial Opening Endoscopic, Diagnostic (ICD-10-PCS; 2018-03-18)
PROC: 0BC28ZZ Extirpation of Matter from Carina, Via Natural or Artificial Opening Endoscopic (ICD-10-PCS; 2018-03-18)
PROC: 0BC68ZZ Extirpation of Matter from Right Lower Lobe Bronchus, Via Natural or Artificial Opening Endoscopic (ICD-10-PCS; 2018-03-18)
PROC: 0BCB8ZZ Extirpation of Matter from Left Lower Lobe Bronchus, Via Natural or Artificial Opening Endoscopic (ICD-10-PCS; 2018-03-18)
PROC: 0BP1XDZ Removal of Intraluminal Device from Trachea, External Approach (ICD-10-PCS; 2018-03-21)
PROC: 0BH17EZ Insertion of Endotracheal Airway into Trachea, Via Natural or Artificial Opening (ICD-10-PCS; 2018-03-21)
DX: B20 Human immunodeficiency virus [HIV] disease (principal); A41.3 Sepsis due to Hemophilus influenzae; N17.0 Acute kidney failure with tubular necrosis; R65.21 Severe sepsis with septic shock; J69.0 Pneumonitis due to inhalation of food and vomit; J96.01 Acute respiratory failure with hypoxia; J15.29 Pneumonia due to other staphylococcus; G92 Toxic encephalopathy; E87.1 Hypo-osmolality and hyponatremia; D68.9 Coagulation defect, unspecified; I42.0 Dilated cardiomyopathy; R64 Cachexia; D69.3 Immune thrombocytopenic purpura; J98.11 Atelectasis; I50.20 Unspecified systolic (congestive) heart failure; T17.590A Other foreign object in bronchus causing asphyxiation, initial encounter; T17.490A Other foreign object in trachea causing asphyxiation, initial encounter; E11.649 Type 2 diabetes mellitus with hypoglycemia without coma; E83.51 Hypocalcemia; N18.9 Chronic kidney disease, unspecified; E11.22 Type 2 diabetes mellitus with diabetic chronic kidney disease; D69.6 Thrombocytopenia, unspecified; E87.6 Hypokalemia; Z68.24 Body mass index [BMI] 24.0-24.9, adult; Z88.8 Allergy status to other drugs, medicaments and biological substances; X58.XXXA Exposure to other specified factors, initial encounter; Y92.89 Other specified places as the place of occurrence of the external cause; Y93.89 Activity, other specified; Y99.8 Other external cause status
CPT/HCPCS: 36415; 36600; 70450; 70486; 71045; 71260; 74018; 76770; 80048; 80053; 80074; 80076; 80202; 80307; 81001; 82024; 82140; 82550; 82570; 82607; 82728; 82747; 82803; 82805; 82962; 83520; 83550; 83615; 83735; 83880; 83930; 84100; 84132; 84156; 84300; 84478; 84550; 85007; 85014; 85018; 85025; 85027; 85384; 85610; 85730; 86021; 86038; 86160; 86403; 86689; 86850; 86900; 86901; 86905; 87040; 87070; 87086; 87116; 87186; 87205; 87400; 87536; 87806; 87901; 88112; 88312; 93005; 93010; 93306; 94002; 94003; 94640; 94660; 94760; 96361; 96365; 96367; 96375; G0378; A6250; C9113; J0330; J0610; J0692; J0696; J1100; J1120; J1630; J1815; J1885; J1940; J2060; J2250; J2270; J2405; J2543; J2704; J2916; J3010; J3370; J3475; J3480; J7030; J7040; J7050; J7070; J7512; P9035; Q9967

== ENCOUNTER 2018-04-13 14:08 | Emergency (ER) | payer BC ==
--- NOTE | 2018-04-13 16:33 | Emergency Department Report ---
Blank Doc - Documentation Documentation: recently d/c from a 2 week ICU stay now here cc of right leg pain and at Centr al line site in groin difficulty walking on it for long no tenderness at calf, no swelling. doppler studies ordered rrevaluate
[2018-04-13 17:31] LABS: Basophils # (Auto) 0.1 K/mm3 (0.0-0.1); Basophils % (Auto) 0.9 % (0.0-1.8); Eosinophils # (Auto) 0.1 K/mm3 (0.0-0.4); Eosinophils % (Auto) 1.6 % (0.0-4.3); Hemoglobin 9.7 gm/dl (11.8-15.2); Lymphocytes # (Auto) 2.7 K/mm3 (1.2-5.4); Lymphocytes % (Auto) 37.6 % (13.4-35.0); Mean Corpuscular HGB Conc 32 % (32-34); Mean Corpuscular Volume 85 fl (84-94); Monocytes # (Auto) 0.7 K/mm3 (0.0-0.8); Monocytes % (Auto) 10.3 % (0.0-7.3); Platelet Count 330 K/mm3 (140-440); Red Blood Count 3.54 M/mm3 (3.65-5.03); Red Cell Distribution Width 14.7 % (13.2-15.2)
[2018-04-13 18:29] LABS: BUN/Creatinine Ratio 11; Blood Urea Nitrogen 10 mg/dL (9-20); Calcium 9.3 mg/dL (8.4-10.2); Hemolysis Index 22
--- NOTE | 2018-04-13 18:39 | Vascular Lab Report ---
FINAL REPORT EXAM: VL VENOUS DUPLEX LE RT HISTORY: Pain to RLQ. Pt. had a central line 03/25/18 TECHNIQUE: Real-time color duplex sonography was performed of the deep venous systems of the bilater al lower extremities and images are submitted for interpretation. PRIORS: None. FINDINGS: Right: There is normal compressibility of the common and superficial femoral veins and the popliteal vein. Normal venous waveforms are demonstrated throughout. No echogenic thrombus is demonstrated. Col or flow is demonstrated in the posterior tibialis and peroneal veins. Limited evaluation of the left lower extremity shows normal compressibility and venous flow in the co mmon femoral vein and proximal superficial and deep femoral veins. No echogenic thrombus is demonstra magdy. IMPRESSION: No evidence of DVT.
--- NOTE | 2018-04-13 19:04 | Emergency Department Report ---
ED Lower Extremity HPI - General Chief Complaint: Extremity Injury, Lower Stated Complaint: (R) LEG PAIN Time Seen by Provider: 04/13/18 16:30 Source: patient Mode of arrival: Ambulatory Limitations: No Limitations - History of Present Illness Initial Comments: Mr. Liu is a pleasant 33 yo male with hx of HIV who was recently discharged March 25 for sepsis, SCOTT. Has had right leg pain since discharge. Physical therapist recomended ER evaluation. PCP has referred Mr. Lui to neurologist to address pain. PCP prescribed tramadol which has not relieved the discomfort. Mr. Liu did have right femoral CVL in the area during his ICU course. He was critically ill with hypotension and haemophilus bacteremia. Pain mainly located in the right groin right upper medial thigh MD Complaint: other (leg pain since discharge from the hospital 18 days ago) -: Gradual, week(s) (2.5) Severity: moderate Worsens With: weight bearing - Related Data Previous Rx's Medication Instructions Recorded Last Taken Type Prednisone [predniSONE 5 mg (6-Day 5 mg PO .TAPER #1 tab.ds.pk 03/25/18 Unknown Rx Pack, 21 Tabs)] Sulfamethoxazole/Trimethoprim 1 each PO DAILY #30 tablet 03/25/18 Unknown Rx [Bactrim DS TAB] Allergies Allergy/AdvReac Type Severity Reaction Status Date / Time clindamycin Allergy Swelling Verified 03/09/18 06:43 ED Review of Systems ROS: Stated complaint: (R) LEG PAIN Other details as noted in HPI Comment: All other systems reviewed and negative Constitutional: denies: fever, malaise Respiratory: denies: cough Cardiovascular: denies: chest pain ED Past Medical Hx - Past Medical History Previous Medical History?: Yes Hx Deep Vein Thrombosis: No - Surgical History Hx Pacemaker: No Hx Internal Defibrillator: No - Social History Smoking Status: Never Smoker Substance Use Type: None - Medications Home Medications: Home Medications Medication Instructions Recorded Confirmed Last Taken Type Prednisone [predniSONE 5 mg (6-Day 5 mg PO .TAPER #1 tab.ds.pk 03/25/18 Unknown Rx Pack, 21 Tabs)] Sulfamethoxazole/Trimethoprim 1 each PO DAILY #30 tablet 03/25/18 Unknown Rx [Bactrim DS TAB] ED Physical Exam - General Limitations: No Limitations General appearance: alert, in no apparent distress - Head Head exam: Present: atraumatic, normocephalic - Eye Eye exam: Present: normal appearance - ENT ENT exam: Present: mucous membranes moist - Neck Neck exam: Present: normal inspection. Absent: tenderness, meningismus - Respiratory Respiratory exam: Present: normal lung sounds bilaterally. Absent: respiratory distress, wheezes, rales, rhonchi - Cardiovascular Cardiovascular Exam: Present: regular rate, normal rhythm, normal heart sounds. Absent: systolic murmur, diastolic murmur, rubs, gallop - GI/Abdominal GI/Abdominal exam: Present: soft, normal bowel sounds. Absent: distended, tenderness, guarding, rebound - Rectal Rectal exam: Present: deferred - Extremities Exam Extremities exam: Present: normal inspection - Back Exam Back exam: Present: normal inspection - Neurological Exam Neurological exam: Present: alert, oriented X3 - Psychiatric Psychiatric exam: Present: normal affect, normal mood - Skin Skin exam: Present: warm, dry, intact, normal color. Absent: rash - Other Other exam information: FROM in right leg without swelling, warm, normal color, normal size, intact strength ED Course Vital Signs 04/13/18 04/13/18 16:18 18:00 Temperature 98.0 F Pulse Rate 109 H Respiratory 18 16 Rate Blood Pressure 114/72 ED Lower Extremity MDM - Lab Data Result diagrams: 04/13/18 16:37 04/13/18 17:53 - Radiology Data Radiology results: report reviewed No DVT in the right lower extremity - Medical Decision Making Mr. Liu has had right groin pain since discharge from hospital 18 days ago. Did have femoral CVL in the area. With intervention, pain is expected. I have not heard of neuropraxia due to femoral CVL insertion. I do feel that pain will improve with PT. PCP has treated pt appropriately with tramadol and neurology referral. Neurology appt in 2-3 weeks. No indication of arterial occlusion or DVT. No back pain to indicate radiculopathy. Critical care attestation.: If time is entered above; I have spent that time in minutes in the direct care of this critically ill patient, excluding procedure time. ED Disposition Clinical Impression: Neurogenic pain of right lower extremity Disposition: DC-01 TO HOME OR SELFCARE Is pt being admited?: No Does the pt Need Aspirin: No Condition: Stable Instructions: Peripheral Neuropathy (ED) Referrals: LORETTA MARTINEZ JR, MD [Primary Care Provider] - 3-5 Days
--- NOTE | 2018-04-13 20:17 | Cat Scan Report ---
FINAL REPORT PROCEDURE: CT ANGIOGRAPHY CHEST TECHNIQUE: Computerized tomographic angiography of the chest was performed during the IV injection o f iodinated nonionic contrast including image processing. The image data was postprocessed using 2-di mensional multiplanar reformatted (MPR) and 3-dimensional (MIP and/or volume rendered) techniques. HISTORY: Altered mental status. COMPARISON: No prior studies are available for comparison. FINDINGS: Pulmonary outflow tract, right and left main pulmonary arteries and their proximal branches: Clear, n o filling defects seen to suggest pulmonary embolus. Pericardium: No evidence of pericardial effusion. Thoracic aorta: No evidence of aneurysmal dilatation or dissection. Coronary arteries: Are unremarkable. Mediastinum and hilar regions: Nonspecific subcentimeter lymph nodes are visualized. No pathologicall y enlarged lymph nodes or masses are identified. Lung Kaur: There is a small amount of patchy alveolar density right lung base posteriorly, there ap pears to be a small amount of atelectasis. Upper abdomen: No acute or focal abnormality is seeen. Other: No acute bony abnormalities are identified. IMPRESSION: Small amount of atelectasis right lung base posteriorly. No other abnormality is seen.
[2018-04-13 21:00] VITALS: BP 118/76
== END 2018-04-13 21:00 | disposition home or self-care (01) ==
LOC: ED 14:08
DX: M79.604 Pain in right leg (principal)
CPT/HCPCS: 36415; 71275; 80048; 85025; 85379; 93971; 99284; Q9967